=== PATIENT | female | born 1960 | race Caucasian/White ===

== ENCOUNTER 2017-01-23 14:07 | Emergency (ER) | payer MEDICAID ==
[2017-01-23 14:35] VITALS: BP 126/79
--- NOTE | 2017-01-23 14:50 | ER Document Report ---
ED Medical Screen (RME) - General Chief Complaint: Problem with Urinary Catheter Stated Complaint: CATHETER LEAKING,PAINFUL Time Seen by Provider: 01/23/17 14:49 Notes: Patient states she just arrived here from [place]. She says she has been a snf for approximately the last 8 months and has not been out of bed. She states she has had a catheter in her bladder for over 30 days. She states it now hurts and leaks. TRAVEL OUTSIDE OF THE [place] IN LAST 30 DAYS: No - Related Data Allergies/Adverse Reactions: clarithromycin [From Biaxin] Allergy (Severe, Verified 01/23/17 14:27) TONGUE/THROAT SWELLING furosemide [From Lasix] Allergy (Intermediate, Verified 01/23/17 14:27) UNSURE venlafaxine HCl [From Effexor] Allergy (Intermediate, Verified 01/23/17 14:27) MUSCLE WEAKNESS adhesive tape Allergy (Verified 01/23/17 14:27) RASH divalproex sodium [From Depakote] Allergy (Verified 01/23/17 14:27) UNSURE Past Medical History - Past Medical History Cardiac Medical History: Reports: Hx Hypertension Denies: Hx Coronary Artery Disease, Hx Heart Attack Pulmonary Medical History: Reports: Hx Asthma, Hx Bronchitis, Hx COPD, Hx Pneumonia Denies: Hx Tuberculosis Neurological Medical History: Denies: Hx Cerebrovascular Accident, Hx Seizures Endocrine Medical History: Reports: Hx Diabetes Mellitus Type 2 Renal/ Medical History: Denies: Hx Peritoneal Dialysis GI Medical History: Reports: Hx Gastroesophageal Reflux Disease, Hx Hiatal Hernia, Hx Ulcer - UMBILICAL. Denies: Hx Hepatitis Musculoskeltal Medical History: Reports Hx Arthritis Psychiatric Medical History: Reports: Hx Depression, Hx Schizophrenia Infectious Medical History: Denies: Hx Hepatitis Past Surgical History: Reports: Hx Abdominal Surgery, Hx Appendectomy, Hx Section, Hx Cholecystectomy, Hx Hysterectomy. Denies: Hx Mastectomy, Hx Open Heart Surgery, Hx Pacemaker - Immunizations Hx Diphtheria, Pertussis, Tetanus Vaccination: No Physical Exam - Vital signs Vitals: Temp Pulse Resp BP Pulse Ox 98.8 F 100 18 126/79 H 95 01/23/17 14:29 01/23/17 14:29 01/23/17 14:29 01/23/17 14:29 01/23/17 14:29 Course - Vital Signs Vital signs: Temp Pulse Resp BP Pulse Ox 98.8 F 100 18 126/79 H 95 01/23/17 14:29 01/23/17 14:29 01/23/17 14:29 01/23/17 14:29 01/23/17 14:29
[2017-01-23 16:21] LABS: ABSOLUTE BASOPHILS # (AUTO) 0.1 10^3/uL (0.0-0.2); ABSOLUTE LYMPHOCYTES (AUTO) 1.6 10^3/uL (0.5-4.7); ABSOLUTE MONOCYTES (AUTO) 0.6 10^3/uL (0.1-1.4); ABSOLUTE NEUT (AUTO) 8.7 10^3/uL (1.7-8.2); BASOPHILS % (AUTO) 0.7 % (0-2); HEMATOCRIT 38.1 % (36.0-47.0); HEMOGLOBIN 12.8 g/dL (12.0-15.5); HGB HCT DIFFERENCE 0.3; LYMPHOCYTES % (AUTO) 14.9 % (13-45); MEAN CORPUSCULAR HEMOGLOBIN 29.4 pg (27.0-33.4); MEAN CORPUSCULAR HGB CONC 33.7 g/dL (32.0-36.0); MEAN CORPUSCULAR VOLUME 87 fl (80-97); MONOCYTES % (AUTO) 5.2 % (3-13); RED BLOOD COUNT 4.36 10^6/uL (3.72-5.28); RED CELL DISTRIBUTION WIDTH 15.9 % (11.5-14.0); SEGMENTED NEUTROPHILS % (AUTO) 79.2 % (42-78)
[2017-01-23 16:40] LABS: ALANINE AMINOTRANSFERASE 28 U/L (9-52); ALBUMIN 4.6 g/dL (3.5-5.0); ALKALINE PHOSPHATASE 67 U/L (38-126); ANION GAP 15 (5-19); ASPARTATE AMINO TRANSFERASE 15 U/L (14-36); BILIRUBIN,DIRECT 0.4 mg/dL (0.0-0.4); BILIRUBIN,TOTAL 0.4 mg/dL (0.2-1.3); BLOOD UREA NITROGEN 9 mg/dL (7-20); CALCIUM 10.4 mg/dL (8.4-10.2); CARBON DIOXIDE 28 mmol/L (22-30); CHLORIDE 99 mmol/L (98-107); CREATININE RESULT 0.55 mg/dL (0.52-1.25); GLUCOSE 95 mg/dL (75-110); POTASSIUM 4.7 mmol/L (3.6-5.0); SODIUM 141.9 mmol/L (137-145); TOTAL PROTEIN 7.2 g/dL (6.3-8.2)
--- NOTE | 2017-01-23 17:24 | ER Document Report ---
ED General - General Chief Complaint: Problem with Urinary Catheter Stated Complaint: CATHETER LEAKING,PAINFUL Time Seen by Provider: 01/23/17 14:49 Notes: Patient complaining of pain in her catheter. Patient states that he has had an indwelling Tenorio catheter for a long time. Just in town from [place]. Began feeling discomfort and dysuria. Also has a headache. TRAVEL OUTSIDE OF THE [place] IN LAST 30 DAYS: No - Related Data Allergies/Adverse Reactions: clarithromycin [From Biaxin] Allergy (Severe, Verified 01/23/17 14:27) TONGUE/THROAT SWELLING furosemide [From Lasix] Allergy (Intermediate, Verified 01/23/17 14:27) UNSURE venlafaxine HCl [From Effexor] Allergy (Intermediate, Verified 01/23/17 14:27) MUSCLE WEAKNESS adhesive tape Allergy (Verified 01/23/17 14:27) RASH divalproex sodium [From Depakote] Allergy (Verified 01/23/17 14:27) UNSURE Home Medications: Current Home Medications Amlodipine Besylate 2.5 mg PO DAILY 01/23/17 [History] Clonidine HCl 0.1 mg PO Q4H 01/23/17 [History] Cyclobenzaprine HCl 5 mg PO QHS 01/23/17 [History] Doxycycline Hyclate 100 mg PO BID 01/23/17 [History] Fluticasone Propionate [Flovent Diskus] 50 mcg IH DAILY 01/23/17 [History] Fluticasone/Salmeterol [Advair 500-50 Diskus 28 Dose] 1 inh IH DAILY 01/23/17 [ History] Hydroxyzine Pamoate 25 mg PO DAILY 01/23/17 [History] Hydroxyzine Pamoate [Vistaril 25 mg Capsule] 25 mg pe PO DAILY 01/23/17 [History ] Levothyroxine Sodium 25 mcg PO DAILY 01/23/17 [History] Lorazepam 1 mg PO Q4H 01/23/17 [History] Melatonin/Theanine [Melatonin Forte 3 Mg Tablet] 1 each PO QHS 01/23/17 [History ] Mirtazapine [Remeron] 45 mg PO QHS 01/23/17 [History] Montelukast Sodium 10 mg PO QHS 01/23/17 [History] Prednisone 10 mg PO DAILY 01/23/17 [History] Quetiapine Fumarate 300 mg PO QHS 01/23/17 [History] Tiotropium [place] [Spiriva] 18 mcg IH DAILY 01/23/17 [History] Trazodone HCl 75 mg PO QHS 01/23/17 [History] Past Medical History - General Information source: Patient - Social History Smoking Status: Current Every Day Smoker Family History: Reviewed & Not Pertinent Patient has suicidal ideation: No Patient has homicidal ideation: No - Past Medical History Cardiac Medical History: Reports: Hx Hypertension Denies: Hx Coronary Artery Disease, Hx Heart Attack Pulmonary Medical History: Reports: Hx Asthma, Hx Bronchitis, Hx COPD, Hx Pneumonia Denies: Hx Tuberculosis Neurological Medical History: Denies: Hx Cerebrovascular Accident, Hx Seizures Endocrine Medical History: Reports: Hx Diabetes Mellitus Type 2 Renal/ Medical History: Denies: Hx Peritoneal Dialysis GI Medical History: Reports: Hx Gastroesophageal Reflux Disease, Hx Hiatal Hernia, Hx Ulcer - UMBILICAL. Denies: Hx Hepatitis Musculoskeltal Medical History: Reports Hx Arthritis Psychiatric Medical History: Reports: Hx Depression, Hx Schizophrenia Infectious Medical History: Denies: Hx Hepatitis Past Surgical History: Reports: Hx Abdominal Surgery, Hx Appendectomy, Hx Section, Hx Cholecystectomy, Hx Hysterectomy. Denies: Hx Mastectomy, Hx Open Heart Surgery, Hx Pacemaker - Immunizations Hx Diphtheria, Pertussis, Tetanus Vaccination: No Hx Pneumococcal Vaccination: 01/30/13 Review of Systems - Review of Systems Constitutional: No symptoms reported EENT: No symptoms reported Cardiovascular: No symptoms reported Respiratory: No symptoms reported Gastrointestinal: No symptoms reported Genitourinary: No symptoms reported, Burning, Dysuria Female Genitourinary: No symptoms reported Musculoskeletal: No symptoms reported Skin: No symptoms reported Hematologic/Lymphatic: No symptoms reported Neurological/Psychological: No symptoms reported Physical Exam - Vital signs Vitals: Temp Pulse Resp BP Pulse Ox 98.8 F 100 18 126/79 H 95 01/23/17 14:29 01/23/17 14:29 01/23/17 14:29 01/23/17 14:29 01/23/17 14:29 Interpretation: Normal - General General appearance: Appears well, Alert - HEENT Head: Normocephalic, Atraumatic Eyes: Normal Pupils: PERRL - Respiratory Respiratory status: No respiratory distress Chest status: Nontender Breath sounds: Normal Chest palpation: Normal - Cardiovascular Rhythm: Regular Heart sounds: Normal auscultation Murmur: No - Abdominal Inspection: Normal Distension: No distension Bowel sounds: Normal Tenderness: Nontender Organomegaly: No organomegaly - Back Back: Normal, Nontender - Extremities General upper extremity: Normal inspection, Nontender, Normal color, Normal ROM , Normal temperature General lower extremity: Normal inspection, Nontender, Normal color, Normal ROM , Normal temperature, Normal weight bearing. No: Adrianne's sign - Neurological Neuro grossly intact: Yes Cognition: Normal Orientation: AAOx4 Hossein Coma Scale Eye Opening: Spontaneous [place] Coma Scale Verbal: Oriented [place] Coma Scale Motor: Obeys Commands [place] Coma Scale Total: 15 Speech: Normal Motor strength normal: LUE, RUE, LLE, RLE Sensory: Normal - Psychological Associated symptoms: Normal affect, Normal mood - Skin Skin Temperature: Warm Skin Moisture: Dry Skin Color: Normal Course - Re-evaluation Re-evalutation: 01/23/17 18:08 She is well-appearing in no acute distress. Had a Tenorio catheter placed on arrival. States that alleviated her symptoms except for her headache. Requesting Tylenol and wants to be discharged. Will check urine and blood work and reassess 01/23/17 18:36 Urinalysis consistent with UTI. Will start on antibiotics. Patient is ready to go home. Will DC at this time. - Vital Signs Vital signs: Temp Pulse Resp BP Pulse Ox 98.8 F 100 18 126/79 H 95 01/23/17 14:29 01/23/17 14:29 01/23/17 14:29 01/23/17 14:29 01/23/17 14:29 - Laboratory Result Diagrams: 01/23/17 16:10 01/23/17 16:10 Laboratory results interpreted by me: 01/23/17 01/23/17 01/23/17 16:10 16:10 17:34 WBC 11.0 H RDW 15.9 H Plt Count 566 H Seg Neutrophils % 79.2 H Absolute Neutrophils 8.7 H Calcium 10.4 H Urine Blood SMALL H Ur Leukocyte Esterase LARGE H Discharge - Discharge Clinical Impression: Urinary tract infection Qualifiers: Urinary tract infection type: acute cystitis Hematuria presence: without hematuria Qualified Code(s): N30.00 - Acute cystitis without hematuria Condition: Good Disposition: HOME, SELF-CARE Instructions: Urinary Tract Infection ([facility]) Additional Instructions: Urinary Tract Infection Your evaluation indicates that you have a urinary tract infection. This is due to germs growing in the bladder. This is a common problem. This infection usually responds quickly to antibiotics. Your antibiotic should be taken exactly as prescribed. Drink plenty of fluids -- three to four quarts a day. Occasionally, a bladder anesthetic will be prescribed to help stop the feeling of urgency until the antibiotic has a chance to clear the infection. This may cause your urine to be dark orange. Certain urine infections require a culture. If the doctor obtained a culture, the results will be back in two days. You should call to see if a change in treatment is needed. A repeat urinalysis after you finish treatment is often recommended. The physician will let you know if further testing is required. Call the doctor if you develop fever, chills, flank pain, inability to urinate, or blood in the urine. Prescriptions: Nitrofurantoin/Nitrofuran Mac [Macrobid 100 mg Capsule] 1 tab PO BID #20 capsule Referrals: SILVINA KABA MD [Primary Care Provider] - Follow up as needed
[2017-01-23] MEDS ORDERED: ACETAMINOPHEN 325 MG TABLET PO ONE (18:06)
[2017-01-23 18:15] LABS: APPEARANCE,URINE CLEAR; BILIRUBIN,URINE NEGATIVE (NEGATIVE); GLUCOSE, URINE NEGATIVE (NEGATIVE); KETONES,URINE NEGATIVE (NEGATIVE); LEUKOCYTE ESTERASE,URINE LARGE (NEGATIVE); NITRITE,URINE NEGATIVE (NEGATIVE); PROTEIN,URINE NEGATIVE (NEGATIVE); URINE SPECIFIC GRAVITY 1.004; UROBILINOGEN,URINE NEGATIVE mg/dL (<2.0)
== END 2017-01-23 18:41 | disposition home or self-care (01) ==
LOC: ER 14:07
DX: N30.00 Acute cystitis without hematuria (principal); R51 Headache; F17.200 Nicotine dependence, unspecified, uncomplicated; I10 Essential (primary) hypertension; J44.9 Chronic obstructive pulmonary disease, unspecified; E11.9 Type 2 diabetes mellitus without complications; Z90.49 Acquired absence of other specified parts of digestive tract; Z90.710 Acquired absence of both cervix and uterus
CPT/HCPCS: 36415; 51702; 80053; 81001; 85025; 99283

== ENCOUNTER → 2017-02-07 | Outpatient (CLI) | payer MEDICAID ==
--- NOTE | 2017-02-07 17:43 | RADIOLOGY REPORT (SQ) ---
EXAM DESCRIPTION: CT CHEST WITHOUT COMPLETED DATE/TIME: 02/07/2017 5:17 pm REASON FOR STUDY: OTHER NONSPECIFIC ABNORMAL FINDING OF LUNG FIELD R91.8 OTHER NONSPECIFIC ABNORMAL FINDING OF LUNG FIELD COMPARISON: 02/09/2015 TECHNIQUE: CT scan performed of the chest without intravenous contrast. Images reviewed with lung, soft tissue and bone windows. Reconstructed coronal and sagittal MPR images reviewed. All images st ored on PACS. All CT scanners at this facility use dose modulation, iterative reconstruction, and/or weight based d osing when appropriate to reduce radiation dose to as low as reasonably achievable (ALARA). [facility]: Dose Right [facility]: CareDose [facility]: Dose Right [facility]: Teradose 4D [facility]: [employer] RADIATION DOSE: Up-to-date CT equipment and radiation dose reduction techniques were employed. CTDIv ol: 6.3 mGy. DLP: 244 mGy-cm. mGy. LIMITATIONS: No technical limitations. FINDINGS: LUNGS AND PLEURA: Considerable emphysematous changes are present bilaterally. There is li mited area of scarring in right upper lobe. No masses or infiltrates. No effusions. HILAR AND MEDIASTINAL STRUCTURES: No identified masses or abnormal nodes. Small hiatal hernia. HEART AND VASCULAR STRUCTURES: No aneurysm. No pericardial effusion. UPPER ABDOMEN: Right hydronephrosis. Mild left hydronephrosis. THYROID AND OTHER SOFT TISSUES: No masses. No adenopathy. BONES: Mild scoliosis. No osseous lesions. HARDWARE: None in the chest. OTHER: No other significant findings. IMPRESSION: Considerable pulmonary emphysema with no acute abnormality in the chest. Small hiatal h ernia. Hydronephrosis as described. TECHNICAL DOCUMENTATION: JOB ID: [id number] Quality ID # [id number]: Final reports with documentation of one or more dose reduction techniques (e.g., Au tomated exposure control, adjustment of the mA and/or kV according to patient size, use of iterative reconstruction technique) 2010 [employer]- All Rights Reserved
== END ==
LOC: RAD 16:42
PROVIDERS: ATTEND Internal Medicine Critical Care Medicine
DX: J43.9 Emphysema, unspecified (principal); R91.8 Other nonspecific abnormal finding of lung field
CPT/HCPCS: 71250

== ENCOUNTER 2017-02-19 12:56 | Inpatient (IN) | payer MEDICAID ==
[2017-02-19] MEDS ORDERED: NORMAL SALINE 1000 ML 1,000 ML IV ONE (13:20)
[2017-02-19 13:29] LABS: ABSOLUTE LYMPHOCYTES (AUTO) 0.5 10^3/uL (0.5-4.7); ABSOLUTE MONOCYTES (AUTO) 0.6 10^3/uL (0.1-1.4); ABSOLUTE NEUT (AUTO) 6.3 10^3/uL (1.7-8.2); BASOPHILS % (AUTO) 0.6 % (0-2); EOSINOPHILS % (AUTO) 0.5 % (0-6); HEMATOCRIT 36.9 % (36.0-47.0); HEMOGLOBIN 11.9 g/dL (12.0-15.5); HGB HCT DIFFERENCE -1.2; LYMPHOCYTES % (AUTO) 6.9 % (13-45); MEAN CORPUSCULAR HEMOGLOBIN 28.7 pg (27.0-33.4); MEAN CORPUSCULAR HGB CONC 32.4 g/dL (32.0-36.0); MEAN CORPUSCULAR VOLUME 89 fl (80-97); MONOCYTES % (AUTO) 7.7 % (3-13); RED BLOOD COUNT 4.16 10^6/uL (3.72-5.28); RED CELL DISTRIBUTION WIDTH 16.5 % (11.5-14.0); SEGMENTED NEUTROPHILS % (AUTO) 84.3 % (42-78); WHITE BLOOD COUNT 7.5 10^3/uL (4.0-10.5)
[2017-02-19 13:35] LABS: PROTHROMBIN TIME 12.5 SEC (11.4-15.4)
[2017-02-19 13:49] LABS: ALANINE AMINOTRANSFERASE 24 U/L (9-52); ALBUMIN 4.1 g/dL (3.5-5.0); ALKALINE PHOSPHATASE 69 U/L (38-126); ANION GAP 9 (5-19); ASPARTATE AMINO TRANSFERASE 18 U/L (14-36); BILIRUBIN,DIRECT 0.4 mg/dL (0.0-0.4); BILIRUBIN,TOTAL 0.4 mg/dL (0.2-1.3); BLOOD UREA NITROGEN 4 mg/dL (7-20); CALCIUM 9.4 mg/dL (8.4-10.2); CARBON DIOXIDE 37 mmol/L (22-30); CHLORIDE 99 mmol/L (98-107); CREATININE RESULT 0.52 mg/dL (0.52-1.25); GLUCOSE 110 mg/dL (75-110); POTASSIUM 3.9 mmol/L (3.6-5.0); SODIUM 144.9 mmol/L (137-145)
[2017-02-19 13:56] LABS: VENOUS BLOOD BASE EXCESS 7.6 mmol/L; VENOUS BLOOD HCO3 36.1 mmol/L (20-32); VENOUS BLOOD PH 7.32 (7.30-7.42)
[2017-02-19 13:59] LABS: VENOUS BLOOD PCO2 71.2 mmHg (35-63)
--- NOTE | 2017-02-19 14:27 | RADIOLOGY REPORT (SQ) ---
EXAM DESCRIPTION: CHEST SINGLE VIEW COMPLETED DATE/TIME: 02/19/2017 2:07 pm REASON FOR STUDY: sob on bipap COMPARISON: Chest films 04/14/2015, 04/17/2015 CT chest 02/07/2017 EXAM PARAMETERS: NUMBER OF VIEWS: One view. TECHNIQUE: Single frontal radiographic view of the chest acquired. RADIATION DOSE: NA LIMITATIONS: None. FINDINGS: LUNGS AND PLEURA: Lungs are hyperinflated and hyperlucent from obstructive disease. No acute infiltrates. No pleural effusion. No pneumothorax. MEDIASTINUM AND HILAR STRUCTURES: No masses. Contour normal. HEART AND VASCULAR STRUCTURES: Heart normal in size. Normal vasculature. BONES: No acute findings. HARDWARE: None in the chest. OTHER: No other significant finding. IMPRESSION: Obstructive lung disease. No acute infiltrates TECHNICAL DOCUMENTATION: JOB ID: [id number] [employer]- All Rights Reserved
--- NOTE | 2017-02-19 15:03 | ER Document Report ---
ED General - General Chief Complaint: Respiratory Distress Stated Complaint: RESPIRATORY DISTRESS Time Seen by Provider: 02/19/17 13:19 TRAVEL OUTSIDE OF THE [place] IN LAST 30 DAYS: No - HPI Patient complains to provider of: Respiratory distress Notes: Patient was significant history for COPD seen by Dr. Landin log skidder. Patient states recently seen by her doctor in diagnosed with pneumonia started on Levaquin. Patient became extremely short of breath today EMS was called and found patient with SPO2 of 85%. Patient was placed on CPAP and transported to the ER. Upon her arrival patient still to Transition over to BiPAP. Upon transitioning on BiPAP patient able to speak in approximate 5-6 word sentences. Patient otherwise states no other changes in medications except for the Levaquin. Denies any recent travel denies any chest pain abdominal pain fevers or chills. - Related Data Allergies/Adverse Reactions: clarithromycin [From Biaxin] Allergy (Severe, Verified 01/23/17 14:27) TONGUE/THROAT SWELLING furosemide [From Lasix] Allergy (Intermediate, Verified 01/23/17 14:27) UNSURE venlafaxine HCl [From Effexor] Allergy (Intermediate, Verified 01/23/17 14:27) MUSCLE WEAKNESS adhesive tape Allergy (Verified 01/23/17 14:27) RASH divalproex sodium [From Depakote] Allergy (Verified 01/23/17 14:27) UNSURE Home Medications: Current Home Medications Acetaminophen [Tylenol 325 mg Tablet] 650 mg PO Q4HP PRN 02/19/17 [History] Amlodipine Besylate [Norvasc 2.5 mg Tablet] 2.5 mg PO DAILY 02/19/17 [History] Calcium Carbonate/Vitamin D3 [Calcium 600-Vit D3 2,500 Sftgl] 1 each PO DAILY [History] Clonidine HCl [Catapres 0.1 mg Tablet] 0.1 mg PO Q4 02/19/17 [History] Fluticasone Propionate [Flovent Diskus] 50 mcg IH DAILY 02/19/17 [History] Fluticasone/Salmeterol [Advair 500-50 Diskus 28 Dose] 1 dose IH DAILY 02/19/17 [ History] Gabapentin [Neurontin 100 mg Capsule] 100 mg PO Q8 02/19/17 [History] Hydroxyzine Pamoate [Vistaril 25 mg Capsule] 25 mg PO DAILY 02/19/17 [History] Levothyroxine Sodium [Synthroid 0.025 mg Tablet] 25 mcg PO QAM 02/19/17 [History ] Lorazepam [Ativan] 1 mg PO Q8 02/19/17 [History] Mirtazapine 30 mg PO QHS 02/19/17 [History] Montelukast Sodium [Singulair 10 mg Tablet] 10 mg PO QHS 02/19/17 [History] Multivit-Min/Iron/Folic/Lutein [Centrum Silver Women Tablet] 1 each PO DAILY [History] Omeprazole 40 mg PO DAILY 02/19/17 [History] Prednisone [Deltasone 10 mg Tablet] 10 mg PO DAILY 02/19/17 [History] Quetiapine Fumarate [Seroquel] 300 mg PO QHS 02/19/17 [History] Roflumilast [Daliresp 500 mcg Tablet] 500 mcg PO DAILY 02/19/17 [History] Tamsulosin HCl [Flomax] 0.4 mg PO DAILY 02/19/17 [History] Tiotropium [place] [Spiriva] 18 mcg IH DAILY 02/19/17 [History] Trazodone HCl [Desyrel 50 mg Tablet] 75 mg PO QHS 02/19/17 [History] Past Medical History - Social History Smoking Status: Current Every Day Smoker Chew tobacco use (# tins/day): No Frequency of alcohol use: Occasional Drug Abuse: None Family History: Reviewed & Not Pertinent Patient has suicidal ideation: No Patient has homicidal ideation: No - Past Medical History Cardiac Medical History: Reports: Hx Hypertension Denies: Hx Coronary Artery Disease, Hx Heart Attack Pulmonary Medical History: Reports: Hx Asthma, Hx Bronchitis, Hx COPD, Hx Pneumonia Denies: Hx Tuberculosis Neurological Medical History: Denies: Hx Cerebrovascular Accident, Hx Seizures Endocrine Medical History: Reports: Hx Diabetes Mellitus Type 2 Renal/ Medical History: Denies: Hx Peritoneal Dialysis GI Medical History: Reports: Hx Gastroesophageal Reflux Disease, Hx Hiatal Hernia, Hx Ulcer - UMBILICAL. Denies: Hx Hepatitis Musculoskeltal Medical History: Reports Hx Arthritis Psychiatric Medical History: Reports: Hx Depression, Hx Schizophrenia Infectious Medical History: Denies: Hx Hepatitis Past Surgical History: Reports: Hx Abdominal Surgery, Hx Appendectomy, Hx Section, Hx Cholecystectomy, Hx Hysterectomy. Denies: Hx Mastectomy, Hx Open Heart Surgery, Hx Pacemaker - Immunizations Hx Diphtheria, Pertussis, Tetanus Vaccination: No Hx Pneumococcal Vaccination: 01/30/13 Review of Systems - Review of Systems Constitutional: No symptoms reported EENT: No symptoms reported Cardiovascular: No symptoms reported Respiratory: Cough, Short of breath, Wheezing Gastrointestinal: No symptoms reported Genitourinary: No symptoms reported Female Genitourinary: No symptoms reported Musculoskeletal: No symptoms reported Skin: No symptoms reported Hematologic/Lymphatic: No symptoms reported Neurological/Psychological: No symptoms reported -: Yes All other systems reviewed and negative Physical Exam - Vital signs Vitals: Temp Resp Pulse Ox 98.0 F 20 98 02/19/17 13:07 02/19/17 13:07 02/19/17 13:07 Interpretation: Tachypneic - General General appearance: Appears well, Alert - HEENT Head: Normocephalic, Atraumatic Eyes: Normal Pupils: PERRL - Respiratory Respiratory status: Tachypnea Chest status: Nontender Breath sounds: Rhonchi, Wheezing Chest palpation: Normal - Cardiovascular Rhythm: Regular Heart sounds: Normal auscultation Murmur: No - Abdominal Inspection: Normal Distension: No distension Bowel sounds: Normal Tenderness: Nontender Organomegaly: No organomegaly - Back Back: Normal, Nontender - Extremities General upper extremity: Normal inspection, Nontender, Normal color, Normal ROM , Normal temperature General lower extremity: Normal inspection, Nontender, Normal color, Normal ROM , Normal temperature, Normal weight bearing. No: Adrianne's sign - Neurological Neuro grossly intact: Yes Cognition: Normal Orientation: AAOx4 [place] Coma Scale Eye Opening: Spontaneous Hossein Coma Scale Verbal: Oriented [place]sein Coma Scale Motor: Obeys Commands [place] Coma Scale Total: 15 Speech: Normal Motor strength normal: LUE, RUE, LLE, RLE Sensory: Normal - Psychological Associated symptoms: Normal affect, Normal mood - Skin Skin Temperature: Warm Skin Moisture: Dry Skin Color: Normal Course - Re-evaluation Re-evalutation: 02/19/17 19:01 Workup shows elevation in patient's PCO2. No signs of any significant acidosis. Patient will be continued on BiPAP. Patient case was discussed with PCP agrees with admission at this time. Patient will be admitted for COPD exacerbation. - Vital Signs Vital signs: Temp Pulse Resp BP Pulse Ox 98.0 F 99 18 121/41 L 100 02/19/17 13:07 02/19/17 16:00 02/19/17 17:00 02/19/17 16:00 02/19/17 17:00 - Laboratory Result Diagrams: 02/19/17 13:04 02/19/17 13:04 Laboratory results interpreted by me: 02/19/17 02/19/17 02/19/17 13:04 13:04 13:40 Hgb 11.9 L RDW 16.5 H Seg Neutrophils % 84.3 H Lymphocytes % 6.9 L VBG pCO2 71.2 H* VBG HCO3 36.1 H Carbon Dioxide 37 H BUN 4 L Critical Care Note - Critical Care Note Total time excluding time spent on procedures (mins): 35 Comments: Multiple evaluations for patient requiring BiPAP due to respiratory distress. Discharge - Discharge Clinical Impression: COPD exacerbation, Respiratory distress Condition: Good Disposition: ADMITTED INPATIENT Admitting Provider: Xavier Unit Admitted: [facility]
[2017-02-19] MEDS ORDERED: NORMAL SALINE 1000 ML 1,000 ML IV PRN (15:18)
[2017-02-19] MEDS ORDERED: DEXTROSE 40% GEL 15 GM TUBE PO PRN ×2 (15:23)
[2017-02-19] MEDS ORDERED: GLUCAGON,HUMAN RECOMB 1 MG INJ IM PRN (15:23)
[2017-02-19] MEDS ORDERED: DEXTROSE 50%-WATER 25 GM/50 ML DISP.SYRIN IV PRN ×2 (15:23)
[2017-02-19] MEDS ORDERED: INSULIN LISPRO 100 UNIT/ML 3 ML VIAL SUBCUT PRN (15:23)
[2017-02-19] MEDS: IPRATROPIUM/ALBUTEROL 0.5-2.5 MG/3 ML AMPUL NEB SCH ×3 (15:56→23:49)
[2017-02-19] MEDS ORDERED: LEVOFLOXACIN 500 MG TABLET PO ONE (16:00)
[2017-02-19] MEDS ORDERED: ENOXAPARIN SODIUM INJ 40 MG/0.4 ML DISP.SYRIN SUBCUT ONE (16:30)
[2017-02-19 16:54] LABS: CREATINE KINASE MB 1.55 ng/mL (<4.55)
[2017-02-19 16:55] LABS: TROPONIN I < 0.012 ng/mL
--- NOTE | 2017-02-19 17:27 | PDOC H&P ---
History of Present Illness Admission Date/PCP: SILVINA KABA MD Patient complains of: Shortness of the breath History of Present Illness: BRYON BONILLA is a 56 year old female This is a 56-year-old female with significant history of the end-stage COPDHistory of the hypertension and type 2 diabetes mellitus with a significant history of the anxiety disorders and also schizophreniaWith recently moved from the other state the patient was living in the assisted livingCame to the emergency department with a complaint of shortness of the breath and increasing more cough and congestion'sIn the ER patient's initial workup is suggesting COPD with acute exacerbations and patient was initially put on the BiPAP because of the respiratory distress and elevated PCO2. Patient still have the productive sputum with a white discharge/pt see pulmonary last ek and did ct scan and told pnemonia and start levaquin and also s/o use prn o2 at night but not sure Patient also see a as outpatient Past Medical History Cardiac Medical History: Reports: Hypertension Denies: Coronary Artery Disease, Myocardial Infarction Pulmonary Medical History: Reports: Asthma, Bronchitis, Chronic Obstructive Pulmonary Disease (COPD), Pneumonia Denies: Tuberculosis Neurological Medical History: Denies: Seizures Endocrine Medical History: Reports: Diabetes Mellitus Type 2 GI Medical History: Reports: Gastroesophageal Reflux Disease, Hiatal Hernia Denies: Hepatitis Musculoskeltal Medical History: Reports: Arthritis Psychiatric Medical History: Reports: Depression, General Anxiety Disorder, Schizoaffective Disorder Hematology: Denies: Anemia, Sickle Cell Disease Past Surgical History Past Surgical History: Reports: Appendectomy, Section, Cholecystectomy , Hysterectomy Denies: Amputation, Mastectomy, Pacemaker Social History Smoking Status: Current Every Day Smoker Frequency of Alcohol Use: Occasional Hx Recreational Drug Use: No Hx Prescription Drug Abuse: No Family History Family History: Reviewed & Not Pertinent Parental Family History Reviewed: Yes Children Family History Reviewed: Yes Sibling(s) Family History Reviewed.: Yes Medication/Allergy Home Medications: Acetaminophen [Tylenol 325 mg Tablet] 650 mg PO Q4HP PRN 02/19/17 Amlodipine Besylate [Norvasc 2.5 mg Tablet] 2.5 mg PO DAILY 02/19/17 Calcium Carbonate/Vitamin D3 [Calcium 600-Vit D3 2,500 Sftgl] 1 each PO DAILY Clonidine HCl [Catapres 0.1 mg Tablet] 0.1 mg PO Q4 02/19/17 Fluticasone Propionate [Flovent Diskus] 50 mcg IH DAILY 02/19/17 Fluticasone/Salmeterol [Advair 500-50 Diskus 28 Dose] 1 dose IH DAILY 02/19/17 Gabapentin [Neurontin 100 mg Capsule] 100 mg PO Q8 02/19/17 Hydroxyzine Pamoate [Vistaril 25 mg Capsule] 25 mg PO DAILY 02/19/17 Levothyroxine Sodium [Synthroid 0.025 mg Tablet] 25 mcg PO QAM 02/19/17 Lorazepam [Ativan] 1 mg PO Q8 02/19/17 Mirtazapine 30 mg PO QHS 02/19/17 Montelukast Sodium [Singulair 10 mg Tablet] 10 mg PO QHS 02/19/17 Multivit-Min/Iron/Folic/Lutein [Centrum Silver Women Tablet] 1 each PO DAILY Omeprazole 40 mg PO DAILY 02/19/17 Prednisone [Deltasone 10 mg Tablet] 10 mg PO DAILY 02/19/17 Quetiapine Fumarate [Seroquel] 300 mg PO QHS 02/19/17 Roflumilast [Daliresp 500 mcg Tablet] 500 mcg PO DAILY 02/19/17 Tamsulosin HCl [Flomax] 0.4 mg PO DAILY 02/19/17 Tiotropium Ira [Spiriva] 18 mcg IH DAILY 02/19/17 Trazodone HCl [Desyrel 50 mg Tablet] 75 mg PO QHS 02/19/17 Allergies/Adverse Reactions: clarithromycin [From Biaxin] Allergy (Severe, Verified 01/23/17 14:27) TONGUE/THROAT SWELLING furosemide [From Lasix] Allergy (Intermediate, Verified 01/23/17 14:27) UNSURE venlafaxine HCl [From Effexor] Allergy (Intermediate, Verified 01/23/17 14:27) MUSCLE WEAKNESS adhesive tape Allergy (Verified 01/23/17 14:27) RASH divalproex sodium [From Depakote] Allergy (Verified 01/23/17 14:27) UNSURE Review of Systems Constitutional: PRESENT: weakness. ABSENT: chills, fever(s), headache(s), weight gain, weight loss Eyes: ABSENT: visual disturbances Ears: ABSENT: hearing changes Cardiovascular: PRESENT: dyspnea on exertion. ABSENT: chest pain, edema, orthropnea, palpitations Respiratory: PRESENT: cough, dyspnea, sputum. ABSENT: hemoptysis Gastrointestinal: ABSENT: abdominal pain, constipation, diarrhea, hematemesis, hematochezia, nausea, vomiting Genitourinary: ABSENT: dysuria, hematuria Musculoskeletal: ABSENT: joint swelling Integumentary: ABSENT: rash, wounds Neurological: ABSENT: abnormal gait, abnormal speech, confusion, dizziness, focal weakness, syncope Psychiatric: ABSENT: anxiety, depression, homidical ideation, suicidal ideation Endocrine: ABSENT: cold intolerance, heat intolerance, menstrual abnormalities, polydipsia, polyuria Hematologic/Lymphatic: ABSENT: easy bleeding, easy bruising, lymphadenopathy Physical Exam Vital Signs: Temp Pulse Resp BP Pulse Ox 98.0 F 20 98 02/19/17 13:07 02/19/17 13:07 02/19/17 13:07 Intake & Output 02/18/17 02/19/17 02/20/17 06:59 06:59 06:59 Weight 61.235 kg General appearance: PRESENT: mild distress Eye exam: PRESENT: PERRLA Mouth exam: PRESENT: dry mucosa Neck exam: ABSENT: carotid bruit, full ROM, JVD, lymphadenopathy, meningismus, tenderness, thyromegaly, tracheal deviation, tracheostomy, other Respiratory exam: PRESENT: decreased breath sounds, tachypnea, wheezes Cardiovascular exam: PRESENT: +S1, +S2 Pulses: ABSENT: normal carotid pulses, normal radial pulses, normal femoral pulses, normal dorsalis pedis pul, +1 pedal pulses bilateral, +2 pedal pulses bilateral, other Vascular exam: PRESENT: normal capillary refill GI/Abdominal exam: PRESENT: normal bowel sounds, soft. ABSENT: tenderness Extremities exam: ABSENT: pedal edema Neurological exam: PRESENT: alert, awake, oriented to person, oriented to place , oriented to time Psychiatric exam: PRESENT: anxious Skin exam: PRESENT: dry Results Laboratory Results: 02/19/17 13:04 02/19/17 13:04 02/19/17 02/19/17 02/19/17 13:04 13:04 13:04 WBC 7.5 RBC 4.16 Hgb 11.9 L Hct 36.9 MCV 89 MCH 28.7 MCHC 32.4 RDW 16.5 H Plt Count 302 Seg Neutrophils % 84.3 H Lymphocytes % 6.9 L Monocytes % 7.7 Eosinophils % 0.5 Basophils % 0.6 Absolute Neutrophils 6.3 Absolute Lymphocytes 0.5 Absolute Monocytes 0.6 Absolute Eosinophils 0.0 Absolute Basophils 0.0 VBG pH VBG pCO2 VBG HCO3 VBG Base Excess Sodium 144.9 Potassium 3.9 Chloride 99 Carbon Dioxide 37 H Anion Gap 9 BUN 4 L Creatinine 0.52 Est GFR ( Amer) > 60 Est GFR (Non-Af Amer) > 60 Glucose 110 Lactic Acid 0.9 Calcium 9.4 Total Bilirubin 0.4 AST 18 ALT 24 Alkaline Phosphatase 69 Total Protein 7.0 Albumin 4.1 02/19/17 13:40 WBC RBC Hgb Hct MCV MCH MCHC RDW Plt Count Seg Neutrophils % Lymphocytes % Monocytes % Eosinophils % Basophils % Absolute Neutrophils Absolute Lymphocytes Absolute Monocytes Absolute Eosinophils Absolute Basophils VBG pH 7.32 VBG pCO2 71.2 H* VBG HCO3 36.1 H VBG Base Excess 7.6 Sodium Potassium Chloride Carbon Dioxide Anion Gap BUN Creatinine Est GFR ( Amer) Est GFR (Non-Af Amer) Glucose Lactic Acid Calcium Total Bilirubin AST ALT Alkaline Phosphatase Total Protein Albumin 02/19/17 13:04 Troponin I < 0.012 Impressions: Chest X-Ray 02/19/17 13:20 IMPRESSION: Obstructive lung disease. No acute infiltrates Assessment & Plan - Diagnosis (1) COPD exacerbation Is this a current diagnosis for this admission?: Yes Plan: With end-stage COPD will start the patient on IV Solu-Medrol and respiratory treatment (2) Respiratory distress Is this a current diagnosis for this admission?: Yes Plan: With the patient's PCO2 is 71 most likely chronic respiratory failure with acute exacerbations will put the patient on the BiPAP and consult the pulmonary (3) Diabetes Qualifiers: Diabetes mellitus type: type 2 Diabetes mellitus complication status: with unspecified complications Is this a current diagnosis for this admission?: Yes Plan: Put the patient on a sliding scale (4) Hypertension Qualifiers: Hypertension type: essential hypertension Qualified Code(s): I10 - Essential (primary) hypertension Is this a current diagnosis for this admission?: Yes Plan: Continues to current medications (5) Generalized anxiety disorder Is this a current diagnosis for this admission?: Yes Plan: She is currently follow with the psych and continues all psych medications - Time Time Spent: 30 to 50 Minutes Medications reviewed and adjusted accordingly: Yes Anticipated discharge: Home Within: Other - Inpatient Certification Medical Necessity: Need Close Monitoring Due to Risk of Patient Decompensation, Need For IV Fluids, Need for IV Antibiotics 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
--- NOTE | 2017-02-19 18:44 | RADIOLOGY REPORT (SQ) ---
EXAM DESCRIPTION: CT CHEST WITHOUT COMPLETED DATE/TIME: 02/19/2017 6:25 pm REASON FOR STUDY: copd/reapirtory failure COMPARISON: None. TECHNIQUE: CT scan performed of the chest without intravenous contrast. Images reviewed with lung, soft tissue and bone windows. Reconstructed coronal and sagittal MPR images reviewed. All images st ored on PACS. All CT scanners at this facility use dose modulation, iterative reconstruction, and/or weight based d osing when appropriate to reduce radiation dose to as low as reasonably achievable (ALARA). [facility]: Dose Right [facility]: CareDose [facility]: Dose Right [facility]: Teradose 4D [facility]: Smart [employer] RADIATION DOSE: CT Rad equipment meets quality standard of care and radiation dose reduction techniq ues were employed. CTDIvol: 5.0 mGy. DLP: 207 mGy-cm. mGy. LIMITATIONS: No technical limitations. FINDINGS: LUNGS AND PLEURA: No masses, infiltrates, pneumothorax. No pleural effusions, calcificati ons. The previously described extensive bilateral emphysematous changes are again identified. The p reviously described limited area of scarring in the right upper lobe appears stable. HILAR AND MEDIASTINAL STRUCTURES: No identified masses or abnormal nodes. No obvious aneurysm. HEART AND VASCULAR STRUCTURES: No aneurysm. No pericardial effusion. Coronary artery calcifications are identified. UPPER ABDOMEN: Bilateral hydronephrosis is again identified. THYROID AND OTHER SOFT TISSUES: No masses. No adenopathy. BONES: No significant finding. HARDWARE: None in the chest. OTHER: No other significant findings. IMPRESSION: No significant interval change. No acute findings. Other findings as noted above TECHNICAL DOCUMENTATION: JOB ID: [id number] Quality ID # [id number]: Final reports with documentation of one or more dose reduction techniques (e.g., Au tomated exposure control, adjustment of the mA and/or kV according to patient size, use of iterative reconstruction technique) 2010 [employer]- All Rights Reserved
--- NOTE | 2017-02-19 19:37 | RADIOLOGY REPORT (SQ) ---
EXAM DESCRIPTION: NM LUNG PERFUSION SCAN COMPLETED DATE/TIME: 02/19/2017 7:25 pm REASON FOR STUDY: hypoxia/copd/ COMPARISON: Chest CT scan dated 02/19/2017 RADIONUCLIDE AND DOSE: 5.13 millicuries TC-99m MAA The route of agent administration: Intravenous TECHNIQUE: Eight views of the lungs acquired following injection of MAA. LIMITATIONS: None. FINDINGS: PERFUSION: There is inhomogeneity of the distribution of tracer activity.. OTHER: No other significant finding. IMPRESSION: There is inhomogeneity of the distribution of tracer activity. When correlated with the chest CT scan this most likely is related to chronic lung disease however this study is indeterminat e for pulmonary embolic disease. TECHNICAL DOCUMENTATION: JOB ID: [id number] [employer]- All Rights Reserved
[2017-02-19] MEDS: ACETAMINOPHEN 325 MG TABLET PO PRN (19:57)
[2017-02-19] MEDS: BUDESONIDE NEB 0.5 MG/2 ML AMPUL NEB SCH (20:49)
[2017-02-19] MEDS ORDERED: ACETAMINOPHEN 325 MG TABLET PO PRN (20:55)
--- NOTE | 2017-02-19 21:16 | EKG REPORT ---
SEVERITY:- BORDERLINE ECG - SINUS TACHYCARDIA BORDERLINE INFERIOR Q WAVES : Confirmed by: Sarah Beth Kate MD 19-Feb-2017 21:15:32
[2017-02-19] MEDS ORDERED: BUDESONIDE NEB 0.5 MG/2 ML AMPUL NEB SCH (22:00)
[2017-02-19] MEDS ORDERED: METHYLPREDNISOLONE INJ 40 MG/1 ML SDV IV SCH (22:00)
[2017-02-19] MEDS: CEFEPIME 1 GM/D5W RTU 1 GM/50 ML RTUPB IV SCH (22:08)
[2017-02-19] MEDS: GABAPENTIN 100 MG CAPSULE PO SCH (22:09)
[2017-02-19] MEDS: MONTELUKAST SODIUM 10 MG TABLET PO SCH (22:09)
[2017-02-19] MEDS: FAMOTIDINE 20 MG TABLET PO SCH (22:09)
[2017-02-19] MEDS: MIRTAZAPINE 15 MG TABLET PO SCH (22:10)
[2017-02-19] MEDS: QUETIAPINE FUMARATE 100 MG TABLET PO SCH (22:10)
[2017-02-19] MEDS: METHYLPREDNISOLONE INJ 125 MG/2 ML SDV IV SCH (22:11)
[2017-02-19] MEDS: FLUTICASONE/SALMETEROL DISKUS 500-50 MCG/DOSE IH SCH (22:11)
[2017-02-19] MEDS: TRAZODONE HCL 50 MG TABLET PO SCH (22:20)
[2017-02-19] MEDS: CLONIDINE HCL 0.1 MG TABLET PO SCH (22:20)
[2017-02-19 22:27] LABS: CREATINE KINASE MB 1.76 ng/mL (<4.55)
[2017-02-19 22:31] LABS: TROPONIN I < 0.012 ng/mL
[2017-02-20] MEDS: LORAZEPAM 1 MG TABLET PO SCH ×4 (01:09→21:07)
[2017-02-20] MEDS: CLONIDINE HCL 0.1 MG TABLET PO SCH ×6 (01:09→21:08)
[2017-02-20 03:51] LABS: ABSOLUTE LYMPHOCYTES (AUTO) 0.2 10^3/uL (0.5-4.7); ABSOLUTE NEUT (AUTO) 2.9 10^3/uL (1.7-8.2); BASOPHILS % (AUTO) 0.1 % (0-2); HEMATOCRIT 32.1 % (36.0-47.0); HEMOGLOBIN 10.5 g/dL (12.0-15.5); HGB HCT DIFFERENCE -0.6; LYMPHOCYTES % (AUTO) 6.6 % (13-45); MEAN CORPUSCULAR HEMOGLOBIN 29.2 pg (27.0-33.4); MEAN CORPUSCULAR HGB CONC 32.8 g/dL (32.0-36.0); MEAN CORPUSCULAR VOLUME 89 fl (80-97); MONOCYTES % (AUTO) 1.5 % (3-13); RED BLOOD COUNT 3.61 10^6/uL (3.72-5.28); RED CELL DISTRIBUTION WIDTH 16.8 % (11.5-14.0); SEGMENTED NEUTROPHILS % (AUTO) 91.8 % (42-78); WHITE BLOOD COUNT 3.2 10^3/uL (4.0-10.5)
[2017-02-20 04:11] LABS: ANION GAP 6 (5-19); BLOOD UREA NITROGEN 6 mg/dL (7-20); CALCIUM 8.9 mg/dL (8.4-10.2); CARBON DIOXIDE 34 mmol/L (22-30); CHLORIDE 105 mmol/L (98-107); CREATININE RESULT 0.43 mg/dL (0.52-1.25); GLUCOSE 126 mg/dL (75-110); MAGNESIUM 2.1 mg/dL (1.6-2.3); POTASSIUM 4.3 mmol/L (3.6-5.0); SODIUM 144.6 mmol/L (137-145)
[2017-02-20 04:23] LABS: CREATINE KINASE MB 1.42 ng/mL (<4.55)
[2017-02-20 04:29] LABS: TROPONIN I < 0.012 ng/mL
[2017-02-20] MEDS: IPRATROPIUM/ALBUTEROL 0.5-2.5 MG/3 ML AMPUL NEB SCH ×5 (04:36→20:14)
[2017-02-20] MEDS: LANSOPRAZOLE 30 MG TAB.RAP.DR PO SCH (05:38)
[2017-02-20] MEDS: METHYLPREDNISOLONE INJ 125 MG/2 ML SDV IV SCH ×3 (05:38→21:07)
[2017-02-20] MEDS: LEVOTHYROXINE SODIUM 0.025 MG TABLET PO SCH (05:38)
[2017-02-20] MEDS: GABAPENTIN 100 MG CAPSULE PO SCH ×3 (05:38→21:07)
[2017-02-20] MEDS ORDERED: INFLUENZA ADLT QUAD (36MOS+) 2017-18 VAC 0.5 ML SYR IM PRN (06:01)
[2017-02-20 06:45] LABS: ARTERIAL BLOOD O2 SATURATION 99.1 % (94-98)
[2017-02-20] MEDS: BUDESONIDE NEB 0.5 MG/2 ML AMPUL NEB SCH ×2 (08:35→20:15)
[2017-02-20] MEDS: CEFEPIME 1 GM/D5W RTU 1 GM/50 ML RTUPB IV SCH ×2 (09:55→21:06)
[2017-02-20] MEDS: PREDNISONE 10 MG TABLET PO SCH (09:56)
[2017-02-20] MEDS: CALCIUM CARBONATE 250 MG/VITAMIN D3 125 UNIT TABLET PO SCH (09:56)
[2017-02-20] MEDS: TAMSULOSIN HCL 0.4 MG CAP.SR.24H PO SCH (09:57)
[2017-02-20] MEDS: MULTIVITAMIN TABLET PO SCH (09:57)
[2017-02-20] MEDS: LEVOFLOXACIN 500 MG TABLET PO SCH (09:58)
[2017-02-20] MEDS: AMLODIPINE BESYLATE 2.5 MG TABLET PO SCH (09:58)
[2017-02-20] MEDS: HYDROXYZINE PAMOATE 25 MG CAPSULE PO SCH (09:58)
[2017-02-20] MEDS: ROFLUMILAST 500 MCG TABLET PO SCH (09:59)
[2017-02-20] MEDS: FAMOTIDINE 20 MG TABLET PO SCH ×2 (09:59→21:07)
[2017-02-20] MEDS: FLUTICASONE/SALMETEROL DISKUS 500-50 MCG/DOSE IH SCH (10:00)
[2017-02-20] MEDS ORDERED: [UNRECOGNIZED DRUG - OTHER] PO SCH (10:00)
[2017-02-20] MEDS ORDERED: FLUTICASONE PROPIONATE 50 MCG IH SCH (10:00)
[2017-02-20] MEDS ORDERED: VITAMIN D3 PO SCH (10:00)
[2017-02-20] MEDS ORDERED: TIOTROPIUM BROMIDE DPI 5 CAP/KIT (18 MCG/CAP) IH SCH (10:00)
[2017-02-20] MEDS ORDERED: CALCIUM CARBONATE PO SCH (10:00)
[2017-02-20] MEDS ORDERED: (PENDING PHARMACY ID) (Multivit-Min/Iron/Folic/Lutein [Centrum Silver Women Tablet] 1 EACH PO SCH (10:00)
[2017-02-20] MEDS: ENOXAPARIN SODIUM INJ 40 MG/0.4 ML DISP.SYRIN SUBCUT SCH (10:01)
--- NOTE | 2017-02-20 10:25 | PDOC PROGRESS REPORT ---
Subjective Progress Note for:: 02/20/17 Subjective:: Patient's currently doing fair Since denied any chest pain denied any shortness of the breath Patient's CT of the chest was negative for any acute infiltrate but have a significant emphysema Patient's VQ scan was indeterminant due to the significant emphysema Patient's otherwise no fever overnight Physical Exam Vital Signs: Temp Pulse Resp BP Pulse Ox 99.2 F 87 20 103/50 L 100 02/20/17 07:56 02/20/17 08:35 02/20/17 08:35 02/20/17 07:56 02/20/17 08:35 Intake & Output 02/19/17 02/20/17 02/21/17 06:59 06:59 06:59 Intake Total 1395 Balance 1395 Weight 63.7 kg General appearance: PRESENT: no acute distress, well-developed, well-nourished Head exam: PRESENT: atraumatic, normocephalic Eye exam: PRESENT: conjunctiva pink, EOMI, PERRLA. ABSENT: scleral icterus Ear exam: PRESENT: normal external ear exam Mouth exam: PRESENT: moist, tongue midline Neck exam: PRESENT: full ROM. ABSENT: carotid bruit, JVD, lymphadenopathy, thyromegaly Respiratory exam: PRESENT: clear to auscultation wilfredo Cardiovascular exam: PRESENT: RRR. ABSENT: diastolic murmur, rubs, systolic murmur Pulses: PRESENT: normal dorsalis pedis pul, +2 pedal pulses bilateral Vascular exam: PRESENT: normal capillary refill GI/Abdominal exam: PRESENT: normal bowel sounds, soft. ABSENT: distended, guarding, mass, organolmegaly, rebound, tenderness Rectal exam: PRESENT: deferred Extremities exam: ABSENT: pedal edema Neurological exam: PRESENT: alert, awake, oriented to person, oriented to place , oriented to time, oriented to situation, CN II-XII grossly intact. ABSENT: motor sensory deficit Psychiatric exam: PRESENT: appropriate affect, normal mood. ABSENT: homicidal ideation, suicidal ideation Skin exam: PRESENT: dry, intact, warm. ABSENT: cyanosis, rash Results Laboratory Results: 02/20/17 03:37 02/20/17 03:37 02/20/17 02/20/17 02/20/17 03:37 03:37 06:20 WBC 3.2 L RBC 3.61 L Hgb 10.5 L Hct 32.1 L MCV 89 MCH 29.2 MCHC 32.8 RDW 16.8 H Plt Count 238 Seg Neutrophils % 91.8 H Lymphocytes % 6.6 L Monocytes % 1.5 L Eosinophils % 0.0 Basophils % 0.1 Absolute Neutrophils 2.9 Absolute Lymphocytes 0.2 L Absolute Monocytes 0.0 L Absolute Eosinophils 0.0 Absolute Basophils 0.0 Carbonic Acid 1.94 H HCO3/H2CO3 Ratio 17:1 ABG pH 7.33 L ABG pCO2 64.6 H ABG pO2 181.8 H ABG HCO3 33.5 H ABG O2 Saturation 99.1 H ABG Base Excess 6.0 FiO2 5L Sodium 144.6 Potassium 4.3 Chloride 105 Carbon Dioxide 34 H Anion Gap 6 BUN 6 L Creatinine 0.43 L Est GFR ( Amer) > 60 Est GFR (Non-Af Amer) > 60 Glucose 126 H Calcium 8.9 Magnesium 2.1 02/19/17 02/19/17 02/19/17 16:15 16:15 21:35 Creatine Kinase 104 102 CK-MB (CK-2) 1.55 Troponin I < 0.012 02/19/17 02/20/17 02/20/17 21:35 03:37 03:37 Creatine Kinase 86 CK-MB (CK-2) 1.76 1.42 Troponin I < 0.012 < 0.012 Impressions: Chest CT 02/19/17 00:00 IMPRESSION: No significant interval change. No acute findings. Other findings as noted above Lung Scan-VQ NM 02/19/17 00:00 IMPRESSION: There is inhomogeneity of the distribution of tracer activity. When correlated with the chest CT scan this most likely is related to chronic lung disease however this study is indeterminate for pulmonary embolic disease. Chest X-Ray 02/19/17 13:20 IMPRESSION: Obstructive lung disease. No acute infiltrates Assessment & Plan - Diagnosis (1) COPD exacerbation Is this a current diagnosis for this admission?: Yes Plan: Cutdown the steroids continues to current inhalers and nebulizer treatments (2) Respiratory distress Is this a current diagnosis for this admission?: Yes Plan: Discussed with Dr. Goddard about the abnormal VQ scan's and the CT report and he will reevaluate the patient (3) Diabetes Qualifiers: Diabetes mellitus type: type 2 Diabetes mellitus complication status: with unspecified complications Is this a current diagnosis for this admission?: Yes Plan: Put the patient on a sliding scale (4) Hypertension Qualifiers: Hypertension type: essential hypertension Qualified Code(s): I10 - Essential (primary) hypertension Is this a current diagnosis for this admission?: Yes Plan: Continues to current medications (5) Generalized anxiety disorder Is this a current diagnosis for this admission?: Yes Plan: She is currently follow with the psych and continues all psych medications - Time Time Spent with patient: 15-24 minutes Medications reviewed and adjusted accordingly: Yes Anticipated discharge: Home Within: Other - Inpatient Certification Medical Necessity: Need Close Monitoring Due to Risk of Patient Decompensation Post Hospital Care: 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
--- NOTE | 2017-02-20 13:48 | PDOC CONSULTATION ---
Consultation Consult Date: 02/20/17 Attending physician:: SILVINA KABA Consult reason:: Acute on chronic respiratory failure History of Present Illness Admission Date/PCP: 02/19/17 15:39 SILVINA KABA MD History of Present Illness: BRYON BONILLA is a 56 year old female This is a 56-year-old female With a history of chronic respiratory failure O2 dependent hypercapnic secondary to COPD patient is normally maintained on a ventilator (i.e. BiPAP) as well as supplemental oxygen. She presents with increasing complaints of progressive shortness of breath difficulty breathing and swallowing she does admit to choking. Has approximately [id number] history and still smokes occasionally.t Past Medical History Cardiac Medical History: Reports: Hypertension Denies: Coronary Artery Disease, Myocardial Infarction Pulmonary Medical History: Reports: Asthma, Bronchitis, Chronic Obstructive Pulmonary Disease (COPD), Pneumonia Denies: Tuberculosis Neurological Medical History: Denies: Seizures Endocrine Medical History: Reports: Diabetes Mellitus Type 2 GI Medical History: Reports: Gastroesophageal Reflux Disease, Hiatal Hernia Denies: Hepatitis Musculoskeltal Medical History: Reports: Arthritis Psychiatric Medical History: Reports: Depression, General Anxiety Disorder, Schizoaffective Disorder Hematology: Denies: Anemia, Sickle Cell Disease Past Surgical History Past Surgical History: Reports: Appendectomy, Section, Cholecystectomy , Hysterectomy Denies: Amputation, Mastectomy, Pacemaker Social History Information Source: Patient, [facility] Records Lives with: Snf Smoking Status: Current Every Day Smoker Cigarettes Packs Per Day: 2 Number of Years Smokin Last Time Smoked: 2016 Passive smoke exposure as: Both Frequency of Alcohol Use: None Hx Recreational Drug Use: No Drugs: None Hx Prescription Drug Abuse: No Do you have pets?: No Have you had any respiratory illnesses as a child?: No Have you been exposed to any sick contacts recently?: No Have you had any recent respiratory illnesses?: No Family History Family History: CAD, COPD, Hypertension, Malignancy Parental Family History Reviewed: No Children Family History Reviewed: No Sibling(s) Family History Reviewed.: No Medication/Allergy Home Medications: Acetaminophen [Tylenol 325 mg Tablet] 650 mg PO Q4HP PRN 02/19/17 Amlodipine Besylate [Norvasc 2.5 mg Tablet] 2.5 mg PO DAILY 02/19/17 Calcium Carbonate/Vitamin D3 [Calcium 600-Vit D3 2,500 Sftgl] 1 each PO DAILY Clonidine HCl [Catapres 0.1 mg Tablet] 0.1 mg PO Q4 02/19/17 Fluticasone Propionate [Flovent Diskus] 50 mcg IH DAILY 02/19/17 Fluticasone/Salmeterol [Advair 500-50 Diskus 28 Dose] 1 dose IH DAILY 02/19/17 Gabapentin [Neurontin 100 mg Capsule] 100 mg PO Q8 02/19/17 Hydroxyzine Pamoate [Vistaril 25 mg Capsule] 25 mg PO DAILY 02/19/17 Levothyroxine Sodium [Synthroid 0.025 mg Tablet] 25 mcg PO QAM 02/19/17 Lorazepam [Ativan] 1 mg PO Q8 02/19/17 Mirtazapine 30 mg PO QHS 02/19/17 Montelukast Sodium [Singulair 10 mg Tablet] 10 mg PO QHS 02/19/17 Multivit-Min/Iron/Folic/Lutein [Centrum Silver Women Tablet] 1 each PO DAILY Omeprazole 40 mg PO DAILY 02/19/17 Prednisone [Deltasone 10 mg Tablet] 10 mg PO DAILY 02/19/17 Quetiapine Fumarate [Seroquel] 300 mg PO QHS 02/19/17 Roflumilast [Daliresp 500 mcg Tablet] 500 mcg PO DAILY 02/19/17 Tamsulosin HCl [Flomax] 0.4 mg PO DAILY 02/19/17 Tiotropium [place] [Spiriva] 18 mcg IH DAILY 02/19/17 Trazodone HCl [Desyrel 50 mg Tablet] 75 mg PO QHS 02/19/17 Allergies/Adverse Reactions: clarithromycin [From Biaxin] Allergy (Severe, Verified 01/23/17 14:27) TONGUE/THROAT SWELLING furosemide [From Lasix] Allergy (Intermediate, Verified 01/23/17 14:27) UNSURE venlafaxine HCl [From Effexor] Allergy (Intermediate, Verified 01/23/17 14:27) MUSCLE WEAKNESS adhesive tape Allergy (Verified 01/23/17 14:27) RASH divalproex sodium [From Depakote] Allergy (Verified 01/23/17 14:27) UNSURE Review of Systems Constitutional: PRESENT: chills, night sweats, weight loss. ABSENT: anorexia, fatigue, fever(s) Eyes: ABSENT: visual disturbances Ears: ABSENT: hearing changes Nose, Mouth, and Throat: ABSENT: mouth pain, sore throat Cardiovascular: PRESENT: dyspnea on exertion, orthropnea, palpitations Respiratory: PRESENT: cough, dyspnea Gastrointestinal: PRESENT: constipation, dysphagia, heartburn, nausea. ABSENT: abdominal pain, bloating, coffee ground emesis, diarrhea, hematemesis, hematochezia, melena, vomiting Genitourinary: ABSENT: difficulty urinating Musculoskeletal: PRESENT: muscle weakness. ABSENT: back pain, deformity, joint swelling Integumentary: ABSENT: diaphoresis, erythema, lesions, pruritus Neurological: PRESENT: dizziness, syncope. ABSENT: abnormal gait, abnormal movements, abnormal speech, confusion, convulsions, focal weakness, frequent falls, lack of coordination, memory loss Psychiatric: ABSENT: hallucinations, homidical ideation, suicidal ideation Endocrine: ABSENT: cold intolerance, heat intolerance Hematologic/Lymphatic: PRESENT: easy bruising Physical Exam Vital Signs: Temp Pulse Resp BP Pulse Ox 99.2 F 84 16 103/50 L 100 02/20/17 07:56 02/20/17 07:56 02/20/17 07:56 02/20/17 07:56 02/20/17 07:56 Intake & Output 02/19/17 02/20/17 02/21/17 06:59 06:59 06:59 Intake Total 1395 Balance 1395 Weight 63.7 kg General appearance: PRESENT: disheveled, mild distress, thin, well-developed Head exam: PRESENT: atraumatic, normocephalic Eye exam: PRESENT: conjunctiva pale, EOMI Mouth exam: PRESENT: dry mucosa, neck supple, tongue midline Teeth exam: PRESENT: poor dentation Neck exam: ABSENT: carotid bruit, JVD, lymphadenopathy, thyromegaly Respiratory exam: PRESENT: decreased breath sounds, prolonged expiratory phas, retraction, rhonchi, symmetrical, tachypnea. ABSENT: accessory muscle use, chest wall tenderness, clear to auscultation wilfredo, crackles, rales, stridor, wheezes Cardiovascular exam: PRESENT: RRR, +S1, +S2. ABSENT: irregular rhythm Pulses: PRESENT: normal radial pulses GI/Abdominal exam: PRESENT: normal bowel sounds, soft. ABSENT: distended, guarding, mass, organolmegaly, rebound, tenderness Extremities exam: ABSENT: calf tenderness, clubbing, joint swelling, pedal edema , tenderness Musculoskeletal exam: ABSENT: deformity, dislocation, tenderness Neurological exam: PRESENT: alert, awake Psychiatric exam: PRESENT: normal mood Skin exam: PRESENT: dry, pallor, warm Results Laboratory Results: 02/20/17 03:37 02/20/17 03:37 02/20/17 02/20/17 02/20/17 03:37 03:37 06:20 WBC 3.2 L RBC 3.61 L Hgb 10.5 L Hct 32.1 L MCV 89 MCH 29.2 MCHC 32.8 RDW 16.8 H Plt Count 238 Seg Neutrophils % 91.8 H Lymphocytes % 6.6 L Monocytes % 1.5 L Eosinophils % 0.0 Basophils % 0.1 Absolute Neutrophils 2.9 Absolute Lymphocytes 0.2 L Absolute Monocytes 0.0 L Absolute Eosinophils 0.0 Absolute Basophils 0.0 Carbonic Acid 1.94 H HCO3/H2CO3 Ratio 17:1 ABG pH 7.33 L ABG pCO2 64.6 H ABG pO2 181.8 H ABG HCO3 33.5 H ABG O2 Saturation 99.1 H ABG Base Excess 6.0 FiO2 5L Sodium 144.6 Potassium 4.3 Chloride 105 Carbon Dioxide 34 H Anion Gap 6 BUN 6 L Creatinine 0.43 L Est GFR ( Amer) > 60 Est GFR (Non-Af Amer) > 60 Glucose 126 H Calcium 8.9 Magnesium 2.1 02/19/17 02/19/17 02/19/17 16:15 16:15 21:35 Creatine Kinase 104 102 CK-MB (CK-2) 1.55 Troponin I < 0.012 02/19/17 02/20/17 02/20/17 21:35 03:37 03:37 Creatine Kinase 86 CK-MB (CK-2) 1.76 1.42 Troponin I < 0.012 < 0.012 Impressions: Chest CT 02/19/17 00:00 IMPRESSION: No significant interval change. No acute findings. Other findings as noted above Lung Scan-VQ NM 02/19/17 00:00 IMPRESSION: There is inhomogeneity of the distribution of tracer activity. When correlated with the chest CT scan this most likely is related to chronic lung disease however this study is indeterminate for pulmonary embolic disease. Chest X-Ray 02/19/17 13:20 IMPRESSION: Obstructive lung disease. No acute infiltrates Assessment & Plan - Diagnosis (1) COPD exacerbation Is this a current diagnosis for this admission?: Yes Plan: Currently down to a few cigarettes a day discontinue Spiriva and Advair as this is redundant with other medications continue Daliresp (2) Generalized anxiety disorder Is this a current diagnosis for this admission?: Yes (3) Respiratory distress Is this a current diagnosis for this admission?: Yes Plan: Advanced bullous disease can limit
[2017-02-20] MEDS: QUETIAPINE FUMARATE 100 MG TABLET PO SCH (21:06)
[2017-02-20] MEDS: MONTELUKAST SODIUM 10 MG TABLET PO SCH (21:07)
[2017-02-20] MEDS: MIRTAZAPINE 15 MG TABLET PO SCH (21:07)
[2017-02-20] MEDS: TRAZODONE HCL 50 MG TABLET PO SCH (21:08)
[2017-02-21] MEDS: IPRATROPIUM/ALBUTEROL 0.5-2.5 MG/3 ML AMPUL NEB SCH ×7 (00:29→23:46)
[2017-02-21] MEDS: CLONIDINE HCL 0.1 MG TABLET PO SCH ×6 (01:28→22:05)
[2017-02-21 05:44] LABS: ABSOLUTE LYMPHOCYTES (AUTO) 0.4 10^3/uL (0.5-4.7); ABSOLUTE MONOCYTES (AUTO) 0.3 10^3/uL (0.1-1.4); ABSOLUTE NEUT (AUTO) 6.8 10^3/uL (1.7-8.2); BASOPHILS % (AUTO) 0.2 % (0-2); HEMATOCRIT 32.4 % (36.0-47.0); HEMOGLOBIN 10.7 g/dL (12.0-15.5); HGB HCT DIFFERENCE -0.3; LYMPHOCYTES % (AUTO) 5.1 % (13-45); MEAN CORPUSCULAR HEMOGLOBIN 29.4 pg (27.0-33.4); MEAN CORPUSCULAR HGB CONC 33.1 g/dL (32.0-36.0); MEAN CORPUSCULAR VOLUME 89 fl (80-97); RED BLOOD COUNT 3.64 10^6/uL (3.72-5.28); RED CELL DISTRIBUTION WIDTH 16.7 % (11.5-14.0); SEGMENTED NEUTROPHILS % (AUTO) 90.7 % (42-78); WHITE BLOOD COUNT 7.4 10^3/uL (4.0-10.5)
[2017-02-21 05:48] LABS: ANION GAP 9 (5-19); BLOOD UREA NITROGEN 17 mg/dL (7-20); CALCIUM 9.3 mg/dL (8.4-10.2); CARBON DIOXIDE 36 mmol/L (22-30); CHLORIDE 100 mmol/L (98-107); CREATININE RESULT 0.58 mg/dL (0.52-1.25); GLUCOSE 115 mg/dL (75-110); MAGNESIUM 2.2 mg/dL (1.6-2.3); POTASSIUM 4.7 mmol/L (3.6-5.0); SODIUM 144.7 mmol/L (137-145)
[2017-02-21] MEDS: LEVOTHYROXINE SODIUM 0.025 MG TABLET PO SCH (06:10)
[2017-02-21] MEDS: LANSOPRAZOLE 30 MG TAB.RAP.DR PO SCH (06:10)
[2017-02-21] MEDS: METHYLPREDNISOLONE INJ 125 MG/2 ML SDV IV SCH ×3 (06:10→22:03)
[2017-02-21] MEDS: LORAZEPAM 1 MG TABLET PO SCH ×3 (06:10→22:04)
[2017-02-21] MEDS: GABAPENTIN 100 MG CAPSULE PO SCH ×3 (06:11→22:04)
[2017-02-21 07:10] LABS: ARTERIAL BLOOD O2 SATURATION 98.1 % (94-98)
[2017-02-21] MEDS: BUDESONIDE NEB 0.5 MG/2 ML AMPUL NEB SCH ×2 (08:43→20:16)
--- NOTE | 2017-02-21 08:56 | PDOC PROGRESS REPORT ---
Subjective Progress Note for:: 02/21/17 Subjective:: She is feeling much better after using the BiPAP Patient claims she feels much better with the BiPAP and sleep better His PCO2 is also coming down Since denied any chest pain denied any shortness of the breath Physical Exam Vital Signs: Temp Pulse Resp BP Pulse Ox 99.0 F 90 18 119/60 98 02/21/17 07:35 02/21/17 08:43 02/21/17 08:43 02/21/17 07:35 02/21/17 08:43 Intake & Output 02/20/17 02/21/17 02/22/17 06:59 06:59 06:59 Intake Total 1395 1330 Balance 1395 1330 Weight 63.7 kg 63 kg General appearance: PRESENT: no acute distress, well-developed, well-nourished Head exam: PRESENT: atraumatic, normocephalic Eye exam: PRESENT: conjunctiva pink, EOMI, PERRLA. ABSENT: scleral icterus Ear exam: PRESENT: normal external ear exam Mouth exam: PRESENT: moist, tongue midline Neck exam: PRESENT: full ROM. ABSENT: carotid bruit, JVD, lymphadenopathy, thyromegaly Respiratory exam: PRESENT: clear to auscultation wilfredo Cardiovascular exam: PRESENT: RRR. ABSENT: diastolic murmur, rubs, systolic murmur Pulses: PRESENT: normal dorsalis pedis pul, +2 pedal pulses bilateral Vascular exam: PRESENT: normal capillary refill GI/Abdominal exam: PRESENT: normal bowel sounds, soft. ABSENT: distended, guarding, mass, organolmegaly, rebound, tenderness Rectal exam: PRESENT: deferred Extremities exam: ABSENT: pedal edema Neurological exam: PRESENT: alert, awake, oriented to person, oriented to place , oriented to time, oriented to situation, CN II-XII grossly intact. ABSENT: motor sensory deficit Psychiatric exam: PRESENT: appropriate affect, normal mood. ABSENT: homicidal ideation, suicidal ideation Skin exam: PRESENT: dry, intact, warm. ABSENT: cyanosis, rash Results Laboratory Results: 02/21/17 04:46 02/21/17 04:46 02/21/17 02/21/17 02/21/17 04:46 04:46 06:50 WBC 7.4 D RBC 3.64 L Hgb 10.7 L Hct 32.4 L MCV 89 MCH 29.4 MCHC 33.1 RDW 16.7 H Plt Count 264 Seg Neutrophils % 90.7 H Lymphocytes % 5.1 L Monocytes % 4.0 Eosinophils % 0.0 Basophils % 0.2 Absolute Neutrophils 6.8 Absolute Lymphocytes 0.4 L Absolute Monocytes 0.3 Absolute Eosinophils 0.0 Absolute Basophils 0.0 Carbonic Acid 1.72 H HCO3/H2CO3 Ratio 19:1 ABG pH 7.40 ABG pCO2 57.2 H ABG pO2 116.7 H ABG HCO3 34.3 H ABG O2 Saturation 98.1 H ABG Base Excess 8.0 FiO2 30% Sodium 144.7 Potassium 4.7 Chloride 100 Carbon Dioxide 36 H Anion Gap 9 BUN 17 Creatinine 0.58 Est GFR ( Amer) > 60 Est GFR (Non-Af Amer) > 60 Glucose 115 H Calcium 9.3 Magnesium 2.2 02/19/17 02/19/17 02/19/17 16:15 16:15 21:35 Creatine Kinase 104 102 CK-MB (CK-2) 1.55 Troponin I < 0.012 02/19/17 02/20/17 02/20/17 21:35 03:37 03:37 Creatine Kinase 86 CK-MB (CK-2) 1.76 1.42 Troponin I < 0.012 < 0.012 Impressions: Chest CT 02/19/17 00:00 IMPRESSION: No significant interval change. No acute findings. Other findings as noted above Lung Scan-VQ NM 02/19/17 00:00 IMPRESSION: There is inhomogeneity of the distribution of tracer activity. When correlated with the chest CT scan this most likely is related to chronic lung disease however this study is indeterminate for pulmonary embolic disease. Chest X-Ray 02/19/17 13:20 IMPRESSION: Obstructive lung disease. No acute infiltrates Assessment & Plan - Diagnosis (1) COPD exacerbation Is this a current diagnosis for this admission?: Yes Plan: Cutdown the steroids continues to current inhalers and nebulizer treatments (2) Respiratory distress Is this a current diagnosis for this admission?: Yes Plan: Discussed with Dr. Goddard about the abnormal VQ scan's and the CT report and he will reevaluate the patient (3) Diabetes Qualifiers: Diabetes mellitus type: type 2 Diabetes mellitus complication status: with unspecified complications Is this a current diagnosis for this admission?: Yes Plan: Put the patient on a sliding scale (4) Hypertension Qualifiers: Hypertension type: essential hypertension Qualified Code(s): I10 - Essential (primary) hypertension Is this a current diagnosis for this admission?: Yes Plan: Continues to current medications (5) Generalized anxiety disorder Is this a current diagnosis for this admission?: Yes - Time Time Spent with patient: 15-24 minutes Medications reviewed and adjusted accordingly: Yes Anticipated discharge: Home Within: Other - Inpatient Certification Medical Necessity: Need Close Monitoring Due to Risk of Patient Decompensation Post Hospital Care: D/C Bung Dropper Documentation - Plan Summary Plan Summary: While patient on long term care social worker immobility with abnormal VQ scan will get the CT angiograms to confirm no PE Will continues to follow with the pulmonary
--- NOTE | 2017-02-21 10:56 | RADIOLOGY REPORT (SQ) ---
EXAM DESCRIPTION: CT CHEST WITHOUT COMPLETED DATE/TIME: 02/21/2017 10:43 am REASON FOR STUDY: hypoxia/sob COMPARISON: None. TECHNIQUE: No intravenous access. Exam cancel. LIMITATIONS: None. FINDINGS: None IMPRESSION: Campaign Fundraiser view. COMMENT: Exam cancelled. TECHNICAL DOCUMENTATION: JOB ID: [id number] [email or web address] All Rights Reserved
[2017-02-21] MEDS: FAMOTIDINE 20 MG TABLET PO SCH ×2 (11:36→22:04)
[2017-02-21] MEDS: ROFLUMILAST 500 MCG TABLET PO SCH (11:36)
[2017-02-21] MEDS: PREDNISONE 10 MG TABLET PO SCH (11:36)
[2017-02-21] MEDS: TAMSULOSIN HCL 0.4 MG CAP.SR.24H PO SCH (11:38)
[2017-02-21] MEDS: LEVOFLOXACIN 500 MG TABLET PO SCH (11:38)
[2017-02-21] MEDS: MULTIVITAMIN TABLET PO SCH (11:38)
[2017-02-21] MEDS: CALCIUM CARBONATE 250 MG/VITAMIN D3 125 UNIT TABLET PO SCH (11:39)
[2017-02-21] MEDS: CEFEPIME 1 GM/D5W RTU 1 GM/50 ML RTUPB IV SCH ×2 (11:39→22:02)
[2017-02-21] MEDS: HYDROXYZINE PAMOATE 25 MG CAPSULE PO SCH (11:39)
[2017-02-21] MEDS: ENOXAPARIN SODIUM INJ 40 MG/0.4 ML DISP.SYRIN SUBCUT SCH (11:40)
[2017-02-21] MEDS: AMLODIPINE BESYLATE 2.5 MG TABLET PO SCH (11:55)
[2017-02-21] MEDS: QUETIAPINE FUMARATE 100 MG TABLET PO SCH (22:03)
[2017-02-21] MEDS: MONTELUKAST SODIUM 10 MG TABLET PO SCH (22:04)
[2017-02-21] MEDS: MIRTAZAPINE 15 MG TABLET PO SCH (22:04)
[2017-02-21] MEDS: TRAZODONE HCL 50 MG TABLET PO SCH (22:05)
[2017-02-22] MEDS: CLONIDINE HCL 0.1 MG TABLET PO SCH ×6 (02:12→21:35)
[2017-02-22] MEDS: IPRATROPIUM/ALBUTEROL 0.5-2.5 MG/3 ML AMPUL NEB SCH ×5 (04:05→19:51)
[2017-02-22] MEDS: LANSOPRAZOLE 30 MG TAB.RAP.DR PO SCH (05:26)
[2017-02-22] MEDS: METHYLPREDNISOLONE INJ 125 MG/2 ML SDV IV SCH (05:27)
[2017-02-22] MEDS: LEVOTHYROXINE SODIUM 0.025 MG TABLET PO SCH (05:27)
[2017-02-22] MEDS: GABAPENTIN 100 MG CAPSULE PO SCH ×3 (05:27→21:32)
[2017-02-22] MEDS: LORAZEPAM 1 MG TABLET PO SCH ×3 (05:27→21:32)
[2017-02-22 06:03] LABS: ABSOLUTE LYMPHOCYTES (AUTO) 0.7 10^3/uL (0.5-4.7); ABSOLUTE MONOCYTES (AUTO) 0.4 10^3/uL (0.1-1.4); ABSOLUTE NEUT (AUTO) 5.9 10^3/uL (1.7-8.2); BASOPHILS % (AUTO) 0.3 % (0-2); HEMATOCRIT 34.3 % (36.0-47.0); HEMOGLOBIN 11.2 g/dL (12.0-15.5); HGB HCT DIFFERENCE -0.7; LYMPHOCYTES % (AUTO) 10.4 % (13-45); MEAN CORPUSCULAR HGB CONC 32.7 g/dL (32.0-36.0); MEAN CORPUSCULAR VOLUME 89 fl (80-97); MONOCYTES % (AUTO) 5.7 % (3-13); RED BLOOD COUNT 3.88 10^6/uL (3.72-5.28); RED CELL DISTRIBUTION WIDTH 16.5 % (11.5-14.0); SEGMENTED NEUTROPHILS % (AUTO) 83.6 % (42-78); WHITE BLOOD COUNT 7.1 10^3/uL (4.0-10.5)
[2017-02-22 06:09] LABS: ANION GAP 7 (5-19); BLOOD UREA NITROGEN 19 mg/dL (7-20); CALCIUM 9.1 mg/dL (8.4-10.2); CARBON DIOXIDE 38 mmol/L (22-30); CHLORIDE 99 mmol/L (98-107); CREATININE RESULT 0.57 mg/dL (0.52-1.25); GLUCOSE 98 mg/dL (75-110); MAGNESIUM 2.2 mg/dL (1.6-2.3); POTASSIUM 4.1 mmol/L (3.6-5.0); SODIUM 144.3 mmol/L (137-145)
[2017-02-22] MEDS: BUDESONIDE NEB 0.5 MG/2 ML AMPUL NEB SCH ×2 (08:03→19:51)
[2017-02-22] MEDS: ENOXAPARIN SODIUM INJ 40 MG/0.4 ML DISP.SYRIN SUBCUT SCH (09:19)
[2017-02-22] MEDS: FAMOTIDINE 20 MG TABLET PO SCH ×2 (09:20→21:33)
[2017-02-22] MEDS: CALCIUM CARBONATE 250 MG/VITAMIN D3 125 UNIT TABLET PO SCH (09:20)
[2017-02-22] MEDS: PREDNISONE 10 MG TABLET PO SCH (09:21)
[2017-02-22] MEDS: TAMSULOSIN HCL 0.4 MG CAP.SR.24H PO SCH (09:21)
[2017-02-22] MEDS: HYDROXYZINE PAMOATE 25 MG CAPSULE PO SCH (09:21)
[2017-02-22] MEDS: MULTIVITAMIN TABLET PO SCH (09:21)
[2017-02-22] MEDS: ROFLUMILAST 500 MCG TABLET PO SCH (09:22)
[2017-02-22] MEDS: CEFEPIME 1 GM/D5W RTU 1 GM/50 ML RTUPB IV SCH (09:22)
[2017-02-22] MEDS: LEVOFLOXACIN 500 MG TABLET PO SCH (09:22)
[2017-02-22] MEDS: AMLODIPINE BESYLATE 2.5 MG TABLET PO SCH (09:24)
[2017-02-22] MEDS ORDERED: PREDNISONE 20 MG TABLET PO SCH ×2 (09:30→10:00)
--- NOTE | 2017-02-22 09:32 | PDOC PROGRESS REPORT ---
Subjective Progress Note for:: 02/22/17 Subjective:: Patient is currently doing much better this She is unable to get the CT angiogram due to the issue of the veins She is denied any chest pain denied any shortness of the breath Patient still very weak and according to the patient while she was in the assisted living patients pretty much in the bedridden conditions probably at this point patient's denied extensive physical therapy and pulmonary rehab Physical Exam Vital Signs: Temp Pulse Resp BP Pulse Ox 99.4 F 88 18 114/65 100 02/22/17 07:45 02/22/17 07:45 02/22/17 07:45 02/22/17 07:45 02/22/17 07:45 Intake & Output 02/21/17 02/22/17 02/23/17 06:59 06:59 06:59 Intake Total 1330 1230 Balance 1330 1230 Weight 63 kg 64.2 kg General appearance: PRESENT: no acute distress, well-developed, well-nourished Head exam: PRESENT: atraumatic, normocephalic Eye exam: PRESENT: conjunctiva pink, EOMI, PERRLA. ABSENT: scleral icterus Ear exam: PRESENT: normal external ear exam Mouth exam: PRESENT: moist, tongue midline Neck exam: PRESENT: full ROM. ABSENT: carotid bruit, JVD, lymphadenopathy, thyromegaly Respiratory exam: PRESENT: clear to auscultation wilfredo Cardiovascular exam: PRESENT: RRR. ABSENT: diastolic murmur, rubs, systolic murmur Pulses: PRESENT: normal dorsalis pedis pul, +2 pedal pulses bilateral Vascular exam: PRESENT: normal capillary refill GI/Abdominal exam: PRESENT: normal bowel sounds, soft. ABSENT: distended, guarding, mass, organolmegaly, rebound, tenderness Rectal exam: PRESENT: deferred Extremities exam: ABSENT: full ROM, left AKA, right AKA, left BKA, right BKA, calf tenderness, joint swelling, pedal edema, tenderness, other Neurological exam: PRESENT: alert, awake, oriented to person, oriented to place , oriented to time, oriented to situation, CN II-XII grossly intact. ABSENT: motor sensory deficit Psychiatric exam: PRESENT: appropriate affect, normal mood. ABSENT: homicidal ideation, suicidal ideation Skin exam: PRESENT: dry, intact, warm. ABSENT: cyanosis, rash Results Laboratory Results: 02/22/17 05:12 02/22/17 05:12 02/22/17 02/22/17 05:12 05:12 WBC 7.1 RBC 3.88 Hgb 11.2 L Hct 34.3 L MCV 89 MCH 29.0 MCHC 32.7 RDW 16.5 H Plt Count 289 Seg Neutrophils % 83.6 H Lymphocytes % 10.4 L Monocytes % 5.7 Eosinophils % 0.0 Basophils % 0.3 Absolute Neutrophils 5.9 Absolute Lymphocytes 0.7 Absolute Monocytes 0.4 Absolute Eosinophils 0.0 Absolute Basophils 0.0 Sodium 144.3 Potassium 4.1 Chloride 99 Carbon Dioxide 38 H Anion Gap 7 BUN 19 Creatinine 0.57 Est GFR ( Amer) > 60 Est GFR (Non-Af Amer) > 60 Glucose 98 Calcium 9.1 Magnesium 2.2 02/19/17 02/19/17 02/19/17 16:15 16:15 21:35 Creatine Kinase 104 102 CK-MB (CK-2) 1.55 Troponin I < 0.012 02/19/17 02/20/17 02/20/17 21:35 03:37 03:37 Creatine Kinase 86 CK-MB (CK-2) 1.76 1.42 Troponin I < 0.012 < 0.012 Impressions: Lung Scan-VQ NM 02/19/17 00:00 IMPRESSION: There is inhomogeneity of the distribution of tracer activity. When correlated with the chest CT scan this most likely is related to chronic lung disease however this study is indeterminate for pulmonary embolic disease. Chest X-Ray 02/19/17 13:20 IMPRESSION: Obstructive lung disease. No acute infiltrates Chest CT 02/21/17 00:00 IMPRESSION: Track Supervisor view. Assessment & Plan - Diagnosis (1) COPD exacerbation Is this a current diagnosis for this admission?: Yes Plan: DC the IV steroid (2) Respiratory distress Is this a current diagnosis for this admission?: Yes Plan: Really well under control with the BiPAP (3) Diabetes Qualifiers: Diabetes mellitus type: type 2 Diabetes mellitus complication status: with unspecified complications Is this a current diagnosis for this admission?: Yes Plan: Put the patient on a sliding scale (4) Hypertension Qualifiers: Hypertension type: essential hypertension Qualified Code(s): I10 - Essential (primary) hypertension Is this a current diagnosis for this admission?: Yes Plan: Continues to current medications (5) Generalized anxiety disorder Is this a current diagnosis for this admission?: Yes Plan: She is currently follow with the psych and continues all psych medications - Time Time Spent with patient: 15-24 minutes Medications reviewed and adjusted accordingly: Yes Anticipated discharge: Home Within: Other - Inpatient Certification Medical Necessity: Significant Comorbidiites Make Outpatient Treatment Too Risky Post Hospital Care: D/C Chief Internal Auditor Documentation - Plan Summary Plan Summary: Continues to current medications discussed with the family on the bedside
[2017-02-22] MEDS ORDERED: PREDNISONE 20 MG TABLET PO ONE (10:45)
[2017-02-22 12:27] LABS: ARTERIAL BLOOD BASE EXCESS 9.5 mmol/L; ARTERIAL BLOOD O2 SATURATION 96.9 % (94-98)
--- NOTE | 2017-02-22 12:36 | PDOC PROGRESS REPORT ---
Subjective Progress Note for:: 02/22/17 Subjective:: I have to wear this mask all the time Physical Exam Vital Signs: Temp Pulse Resp BP Pulse Ox 99.4 F 93 20 114/65 96 02/22/17 07:45 02/22/17 12:23 02/22/17 12:23 02/22/17 07:45 02/22/17 12:23 Intake & Output 02/21/17 02/22/17 02/23/17 06:59 06:59 06:59 Intake Total 1330 1230 Balance 1330 1230 Weight 63 kg 64.2 kg General appearance: PRESENT: no acute distress, cooperative, disheveled, well- developed Head exam: PRESENT: atraumatic, normocephalic Eye exam: PRESENT: conjunctiva pale, EOMI Mouth exam: PRESENT: dry mucosa, neck supple, tongue midline Neck exam: ABSENT: carotid bruit, JVD, lymphadenopathy, thyromegaly Respiratory exam: PRESENT: decreased breath sounds, prolonged expiratory phas, rales, rhonchi, symmetrical, unlabored. ABSENT: accessory muscle use, chest wall tenderness, clear to auscultation wilfredo, crackles, retraction, stridor, tachypnea Cardiovascular exam: PRESENT: RRR, +S1, +S2. ABSENT: clicks, gallop, irregular rhythm Pulses: PRESENT: normal radial pulses GI/Abdominal exam: PRESENT: normal bowel sounds, soft. ABSENT: distended, guarding, mass, organolmegaly, rebound, tenderness Gentrourinary exam: PRESENT: indwelling catheter Extremities exam: ABSENT: calf tenderness, clubbing, joint swelling, pedal edema Musculoskeletal exam: ABSENT: ambulatory, deformity, dislocation Neurological exam: PRESENT: alert, awake Psychiatric exam: PRESENT: normal mood Skin exam: PRESENT: dry, pallor, warm Results Laboratory Results: 02/22/17 05:12 02/22/17 05:12 02/22/17 02/22/17 02/22/17 05:12 05:12 12:15 WBC 7.1 RBC 3.88 Hgb 11.2 L Hct 34.3 L MCV 89 MCH 29.0 MCHC 32.7 RDW 16.5 H Plt Count 289 Seg Neutrophils % 83.6 H Lymphocytes % 10.4 L Monocytes % 5.7 Eosinophils % 0.0 Basophils % 0.3 Absolute Neutrophils 5.9 Absolute Lymphocytes 0.7 Absolute Monocytes 0.4 Absolute Eosinophils 0.0 Absolute Basophils 0.0 Carbonic Acid 1.69 H HCO3/H2CO3 Ratio 21:1 ABG pH 7.42 ABG pCO2 56.1 H ABG pO2 90.1 ABG HCO3 35.7 H ABG O2 Saturation 96.9 ABG Base Excess 9.5 FiO2 3L Sodium 144.3 Potassium 4.1 Chloride 99 Carbon Dioxide 38 H Anion Gap 7 BUN 19 Creatinine 0.57 Est GFR ( Amer) > 60 Est GFR (Non-Af Amer) > 60 Glucose 98 Calcium 9.1 Magnesium 2.2 02/19/17 02/19/17 02/19/17 16:15 16:15 21:35 Creatine Kinase 104 102 CK-MB (CK-2) 1.55 Troponin I < 0.012 02/19/17 02/20/17 02/20/17 21:35 03:37 03:37 Creatine Kinase 86 CK-MB (CK-2) 1.76 1.42 Troponin I < 0.012 < 0.012 Impressions: Lung Scan-VQ NM 02/19/17 00:00 IMPRESSION: There is inhomogeneity of the distribution of tracer activity. When correlated with the chest CT scan this most likely is related to chronic lung disease however this study is indeterminate for pulmonary embolic disease. Chest X-Ray 02/19/17 13:20 IMPRESSION: Obstructive lung disease. No acute infiltrates Chest CT 02/21/17 00:00 IMPRESSION: Field Marketing Manager view. Assessment & Plan - Diagnosis (1) COPD exacerbation Is this a current diagnosis for this admission?: Yes Plan: Labs- All tests 24 hr 02/22/17 02/22/17 05:12 12:15 WBC 7.1 ABG pH 7.42 ABG pCO2 56.1 H ABG pO2 90.1 At or very near her baseline (2) Generalized anxiety disorder Is this a current diagnosis for this admission?: Yes Plan: Multiple etiologies for some respiratory depression Generic Name Dose Route Start Last Admin Trade Name Freq PRN Reason Stop Dose Admin Trazodone HCl 75 mg 02/19/17 22:00 02/21/17 22:05 Desyrel 50 Mg Tablet PO 03/21/17 21:59 Not Given QHS [facility] Hydroxyzine Pamoate 25 mg 02/20/17 10:00 02/22/17 09:21 Vistaril 25 Mg Capsule PO 03/22/17 09:59 25 mg DAILY GIL Quetiapine Fumarate 300 mg 02/19/17 22:00 02/21/17 22:03 Seroquel 100 Mg Tablet PO 03/21/17 21:59 300 mg QHS GIL Lorazepam 1 mg 02/19/17 22:00 02/22/17 05:27 Ativan 1 Mg Tablet PO 02/26/17 21:59 1 mg Q8 GIL (3) Respiratory distress Is this a current diagnosis for this admission?: Yes Plan: Stable at this time
[2017-02-22] MEDS: ACETAMINOPHEN 325 MG TABLET PO PRN (18:26)
[2017-02-22] MEDS: MONTELUKAST SODIUM 10 MG TABLET PO SCH (21:32)
[2017-02-22] MEDS: QUETIAPINE FUMARATE 100 MG TABLET PO SCH (21:33)
[2017-02-22] MEDS: MIRTAZAPINE 15 MG TABLET PO SCH (21:33)
[2017-02-22] MEDS: TRAZODONE HCL 50 MG TABLET PO SCH (21:35)
[2017-02-23] MEDS: IPRATROPIUM/ALBUTEROL 0.5-2.5 MG/3 ML AMPUL NEB SCH ×6 (00:27→20:58)
[2017-02-23] MEDS: CLONIDINE HCL 0.1 MG TABLET PO SCH ×6 (02:27→21:37)
[2017-02-23 05:16] LABS: ABSOLUTE LYMPHOCYTES (AUTO) 1.6 10^3/uL (0.5-4.7); ABSOLUTE MONOCYTES (AUTO) 0.8 10^3/uL (0.1-1.4); ABSOLUTE NEUT (AUTO) 3.9 10^3/uL (1.7-8.2); BASOPHILS % (AUTO) 0.3 % (0-2); EOSINOPHILS % (AUTO) 0.4 % (0-6); HEMATOCRIT 33.5 % (36.0-47.0); HEMOGLOBIN 11.1 g/dL (12.0-15.5); HGB HCT DIFFERENCE -0.2; LYMPHOCYTES % (AUTO) 25.1 % (13-45); MEAN CORPUSCULAR HEMOGLOBIN 29.2 pg (27.0-33.4); MEAN CORPUSCULAR HGB CONC 33.1 g/dL (32.0-36.0); MEAN CORPUSCULAR VOLUME 88 fl (80-97); MONOCYTES % (AUTO) 12.8 % (3-13); RED CELL DISTRIBUTION WIDTH 16.3 % (11.5-14.0); SEGMENTED NEUTROPHILS % (AUTO) 61.4 % (42-78); WHITE BLOOD COUNT 6.4 10^3/uL (4.0-10.5)
[2017-02-23 05:50] LABS: ANION GAP 7 (5-19); BLOOD UREA NITROGEN 19 mg/dL (7-20); CALCIUM 9.3 mg/dL (8.4-10.2); CARBON DIOXIDE 37 mmol/L (22-30); CHLORIDE 99 mmol/L (98-107); CREATININE RESULT 0.59 mg/dL (0.52-1.25); GLUCOSE 88 mg/dL (75-110); SODIUM 142.7 mmol/L (137-145)
[2017-02-23] MEDS: LANSOPRAZOLE 30 MG TAB.RAP.DR PO SCH (06:12)
[2017-02-23] MEDS: LEVOTHYROXINE SODIUM 0.025 MG TABLET PO SCH (06:12)
[2017-02-23] MEDS: GABAPENTIN 100 MG CAPSULE PO SCH ×3 (06:12→21:34)
[2017-02-23] MEDS: LORAZEPAM 1 MG TABLET PO SCH ×3 (06:13→21:36)
[2017-02-23] MEDS: BUDESONIDE NEB 0.5 MG/2 ML AMPUL NEB SCH ×2 (07:44→20:58)
[2017-02-23] MEDS: MULTIVITAMIN TABLET PO SCH (09:27)
[2017-02-23] MEDS: FAMOTIDINE 20 MG TABLET PO SCH ×2 (09:27→21:36)
[2017-02-23] MEDS: LEVOFLOXACIN 500 MG TABLET PO SCH (09:27)
[2017-02-23] MEDS: HYDROXYZINE PAMOATE 25 MG CAPSULE PO SCH (09:27)
[2017-02-23] MEDS: CALCIUM CARBONATE 250 MG/VITAMIN D3 125 UNIT TABLET PO SCH (09:27)
[2017-02-23] MEDS: TAMSULOSIN HCL 0.4 MG CAP.SR.24H PO SCH (09:27)
[2017-02-23] MEDS: ROFLUMILAST 500 MCG TABLET PO SCH (09:28)
[2017-02-23] MEDS: PREDNISONE 20 MG TABLET PO SCH (09:28)
[2017-02-23] MEDS: ENOXAPARIN SODIUM INJ 40 MG/0.4 ML DISP.SYRIN SUBCUT SCH (09:28)
--- NOTE | 2017-02-23 09:29 | PDOC PROGRESS REPORT ---
Subjective Progress Note for:: 02/23/17 Subjective:: Patient is currently doing well Patient's denied any chest pain denied any shortness of the breath Physical Exam Vital Signs: Temp Pulse Resp BP Pulse Ox 98.6 F 91 21 H 120/64 99 02/23/17 08:15 02/23/17 08:16 02/23/17 08:15 02/23/17 08:16 02/23/17 08:16 Intake & Output 02/22/17 02/23/17 02/24/17 06:59 06:59 06:59 Intake Total 1230 1669 100 Balance 1230 1669 100 Weight 64.2 kg 65.5 kg General appearance: PRESENT: no acute distress, well-developed, well-nourished Head exam: PRESENT: atraumatic, normocephalic Eye exam: PRESENT: conjunctiva pink, EOMI, PERRLA. ABSENT: scleral icterus Ear exam: PRESENT: normal external ear exam Mouth exam: PRESENT: moist, tongue midline Neck exam: PRESENT: full ROM. ABSENT: carotid bruit, JVD, lymphadenopathy, thyromegaly Respiratory exam: PRESENT: clear to auscultation wilfredo Cardiovascular exam: PRESENT: RRR. ABSENT: diastolic murmur, rubs, systolic murmur Pulses: PRESENT: normal dorsalis pedis pul, +2 pedal pulses bilateral Vascular exam: PRESENT: normal capillary refill GI/Abdominal exam: PRESENT: normal bowel sounds, soft. ABSENT: distended, guarding, mass, organolmegaly, rebound, tenderness Rectal exam: PRESENT: deferred Neurological exam: PRESENT: alert, awake, oriented to person, oriented to place , oriented to time, oriented to situation, CN II-XII grossly intact. ABSENT: motor sensory deficit Psychiatric exam: PRESENT: appropriate affect, normal mood. ABSENT: homicidal ideation, suicidal ideation Skin exam: PRESENT: dry, intact, warm. ABSENT: cyanosis, rash Results Laboratory Results: 02/23/17 04:53 02/23/17 04:53 02/22/17 02/23/17 02/23/17 12:15 04:53 04:53 WBC 6.4 RBC 3.80 Hgb 11.1 L Hct 33.5 L MCV 88 MCH 29.2 MCHC 33.1 RDW 16.3 H Plt Count 265 Seg Neutrophils % 61.4 Lymphocytes % 25.1 Monocytes % 12.8 Eosinophils % 0.4 Basophils % 0.3 Absolute Neutrophils 3.9 Absolute Lymphocytes 1.6 Absolute Monocytes 0.8 Absolute Eosinophils 0.0 Absolute Basophils 0.0 Carbonic Acid 1.69 H HCO3/H2CO3 Ratio 21:1 ABG pH 7.42 ABG pCO2 56.1 H ABG pO2 90.1 ABG HCO3 35.7 H ABG O2 Saturation 96.9 ABG Base Excess 9.5 FiO2 3L Sodium 142.7 Potassium 4.0 Chloride 99 Carbon Dioxide 37 H Anion Gap 7 BUN 19 Creatinine 0.59 Est GFR ( Amer) > 60 Est GFR (Non-Af Amer) > 60 Glucose 88 Calcium 9.3 02/19/17 02/19/17 02/19/17 16:15 16:15 21:35 Creatine Kinase 104 102 CK-MB (CK-2) 1.55 Troponin I < 0.012 02/19/17 02/20/17 02/20/17 21:35 03:37 03:37 Creatine Kinase 86 CK-MB (CK-2) 1.76 1.42 Troponin I < 0.012 < 0.012 Impressions: Lung Scan-VQ NM 02/19/17 00:00 IMPRESSION: There is inhomogeneity of the distribution of tracer activity. When correlated with the chest CT scan this most likely is related to chronic lung disease however this study is indeterminate for pulmonary embolic disease. Chest X-Ray 02/19/17 13:20 IMPRESSION: Obstructive lung disease. No acute infiltrates Chest CT 02/21/17 00:00 IMPRESSION: Dump Truck Operator view. Assessment & Plan - Diagnosis (1) COPD exacerbation Is this a current diagnosis for this admission?: Yes Plan: DC the IV steroid (2) Respiratory distress Is this a current diagnosis for this admission?: Yes Plan: Really well under control with the BiPAP (3) Diabetes Qualifiers: Diabetes mellitus type: type 2 Diabetes mellitus complication status: with unspecified complications Is this a current diagnosis for this admission?: Yes Plan: Put the patient on a sliding scale (4) Hypertension Qualifiers: Hypertension type: essential hypertension Qualified Code(s): I10 - Essential (primary) hypertension Is this a current diagnosis for this admission?: Yes Plan: Continues to current medications (5) Generalized anxiety disorder Is this a current diagnosis for this admission?: Yes Plan: She is currently follow with the psych and continues all psych medications - Time Time Spent with patient: 15-24 minutes Medications reviewed and adjusted accordingly: Yes Anticipated discharge: Home Within: Other - Inpatient Certification Medical Necessity: Need Close Monitoring Due to Risk of Patient Decompensation Post Hospital Care: D/C Electrician Ship Documentation - Plan Summary Plan Summary: Continues to current medications
[2017-02-23] MEDS: AMLODIPINE BESYLATE 2.5 MG TABLET PO SCH (09:32)
--- NOTE | 2017-02-23 14:09 | EKG REPORT ---
SEVERITY:- BORDERLINE ECG - SINUS RHYTHM ATRIAL PREMATURE COMPLEX BORDERLINE T ABNORMALITIES, ANT-LAT LEADS : Confirmed by: Sarah Beth Kate MD 23-Feb-2017 14:09:07
[2017-02-23] MEDS: QUETIAPINE FUMARATE 100 MG TABLET PO SCH (21:34)
[2017-02-23] MEDS: MONTELUKAST SODIUM 10 MG TABLET PO SCH (21:35)
[2017-02-23] MEDS: MIRTAZAPINE 15 MG TABLET PO SCH (21:35)
[2017-02-23] MEDS: TRAZODONE HCL 50 MG TABLET PO SCH (21:51)
[2017-02-24] MEDS: IPRATROPIUM/ALBUTEROL 0.5-2.5 MG/3 ML AMPUL NEB SCH ×6 (00:30→20:15)
[2017-02-24] MEDS: CLONIDINE HCL 0.1 MG TABLET PO SCH ×6 (01:59→22:19)
[2017-02-24] MEDS: LEVOTHYROXINE SODIUM 0.025 MG TABLET PO SCH (06:20)
[2017-02-24 06:21] LABS: ABSOLUTE EOSINOPHILS # (AUTO) 0.1 10^3/uL (0.0-0.6); ABSOLUTE LYMPHOCYTES (AUTO) 2.4 10^3/uL (0.5-4.7); ABSOLUTE MONOCYTES (AUTO) 0.8 10^3/uL (0.1-1.4); ABSOLUTE NEUT (AUTO) 3.7 10^3/uL (1.7-8.2); BASOPHILS % (AUTO) 0.5 % (0-2); HEMATOCRIT 34.9 % (36.0-47.0); HEMOGLOBIN 11.6 g/dL (12.0-15.5); HGB HCT DIFFERENCE -0.1; LYMPHOCYTES % (AUTO) 33.6 % (13-45); MEAN CORPUSCULAR HEMOGLOBIN 29.5 pg (27.0-33.4); MEAN CORPUSCULAR HGB CONC 33.4 g/dL (32.0-36.0); MEAN CORPUSCULAR VOLUME 88 fl (80-97); MONOCYTES % (AUTO) 11.9 % (3-13); RED BLOOD COUNT 3.95 10^6/uL (3.72-5.28); RED CELL DISTRIBUTION WIDTH 16.5 % (11.5-14.0); WHITE BLOOD COUNT 7.1 10^3/uL (4.0-10.5)
[2017-02-24] MEDS: LANSOPRAZOLE 30 MG TAB.RAP.DR PO SCH (06:21)
[2017-02-24] MEDS: GABAPENTIN 100 MG CAPSULE PO SCH ×3 (06:23→22:08)
[2017-02-24] MEDS: LORAZEPAM 1 MG TABLET PO SCH ×3 (06:23→22:09)
[2017-02-24 06:52] LABS: ANION GAP 7 (5-19); BLOOD UREA NITROGEN 21 mg/dL (7-20); CALCIUM 8.9 mg/dL (8.4-10.2); CARBON DIOXIDE 38 mmol/L (22-30); CHLORIDE 100 mmol/L (98-107); CREATININE RESULT 0.51 mg/dL (0.52-1.25); GLUCOSE 78 mg/dL (75-110); POTASSIUM 4.4 mmol/L (3.6-5.0); SODIUM 144.7 mmol/L (137-145)
[2017-02-24] MEDS: BUDESONIDE NEB 0.5 MG/2 ML AMPUL NEB SCH ×2 (07:35→20:15)
--- NOTE | 2017-02-24 09:25 | PDOC PROGRESS REPORT ---
Subjective Progress Note for:: 02/24/17 Subjective:: Patient is currently doing well Patient's denied any chest pain denied any shortness of the breath Physical Exam Vital Signs: Temp Pulse Resp BP Pulse Ox 98.9 F 99 23 H 119/59 L 100 02/24/17 07:53 02/24/17 07:53 02/24/17 07:53 02/24/17 07:53 02/24/17 07:53 Intake & Output 02/23/17 02/24/17 02/25/17 06:59 06:59 06:59 Intake Total 1669 1738 Balance 1669 1738 Weight 65.3 kg General appearance: PRESENT: no acute distress, well-developed, well-nourished Head exam: PRESENT: atraumatic, normocephalic Eye exam: PRESENT: conjunctiva pink, EOMI, PERRLA. ABSENT: scleral icterus Ear exam: PRESENT: normal external ear exam Mouth exam: PRESENT: moist, tongue midline Neck exam: PRESENT: full ROM. ABSENT: carotid bruit, JVD, lymphadenopathy, thyromegaly Respiratory exam: PRESENT: clear to auscultation wilfredo Cardiovascular exam: PRESENT: RRR. ABSENT: diastolic murmur, rubs, systolic murmur Pulses: PRESENT: normal dorsalis pedis pul, +2 pedal pulses bilateral Vascular exam: PRESENT: normal capillary refill GI/Abdominal exam: PRESENT: normal bowel sounds, soft. ABSENT: distended, guarding, mass, organolmegaly, rebound, tenderness Rectal exam: PRESENT: deferred Extremities exam: ABSENT: pedal edema Neurological exam: PRESENT: alert, awake, oriented to person, oriented to place , oriented to time, oriented to situation, CN II-XII grossly intact. ABSENT: motor sensory deficit Psychiatric exam: PRESENT: appropriate affect, normal mood. ABSENT: homicidal ideation, suicidal ideation Skin exam: PRESENT: dry, intact, warm. ABSENT: cyanosis, rash Results Laboratory Results: 02/24/17 05:26 02/24/17 05:26 02/24/17 02/24/17 05:26 05:26 WBC 7.1 RBC 3.95 Hgb 11.6 L Hct 34.9 L MCV 88 MCH 29.5 MCHC 33.4 RDW 16.5 H Plt Count 302 Seg Neutrophils % 52.0 Lymphocytes % 33.6 Monocytes % 11.9 Eosinophils % 2.0 Basophils % 0.5 Absolute Neutrophils 3.7 Absolute Lymphocytes 2.4 Absolute Monocytes 0.8 Absolute Eosinophils 0.1 Absolute Basophils 0.0 Sodium 144.7 Potassium 4.4 Chloride 100 Carbon Dioxide 38 H Anion Gap 7 BUN 21 H Creatinine 0.51 L Est GFR ( Amer) > 60 Est GFR (Non-Af Amer) > 60 Glucose 78 Calcium 8.9 02/19/17 02/19/17 02/19/17 16:15 16:15 21:35 Creatine Kinase 104 102 CK-MB (CK-2) 1.55 Troponin I < 0.012 02/19/17 02/20/17 02/20/17 21:35 03:37 03:37 Creatine Kinase 86 CK-MB (CK-2) 1.76 1.42 Troponin I < 0.012 < 0.012 Impressions: Lung Scan-VQ NM 02/19/17 00:00 IMPRESSION: There is inhomogeneity of the distribution of tracer activity. When correlated with the chest CT scan this most likely is related to chronic lung disease however this study is indeterminate for pulmonary embolic disease. Chest X-Ray 02/19/17 13:20 IMPRESSION: Obstructive lung disease. No acute infiltrates Chest CT 02/21/17 00:00 IMPRESSION: Remelter view. Assessment & Plan - Diagnosis (1) COPD exacerbation Is this a current diagnosis for this admission?: Yes Plan: DC the IV steroid (2) Respiratory distress Is this a current diagnosis for this admission?: Yes Plan: Really well under control with the BiPAP (3) Diabetes Qualifiers: Diabetes mellitus type: type 2 Diabetes mellitus complication status: with unspecified complications Is this a current diagnosis for this admission?: Yes Plan: Put the patient on a sliding scale (4) Hypertension Qualifiers: Hypertension type: essential hypertension Qualified Code(s): I10 - Essential (primary) hypertension Is this a current diagnosis for this admission?: Yes Plan: Continues to current medications (5) Generalized anxiety disorder Is this a current diagnosis for this admission?: Yes Plan: She is currently follow with the psych and continues all psych medications - Time Time Spent with patient: 15-24 minutes Medications reviewed and adjusted accordingly: Yes Anticipated discharge: Home Within: Other - Inpatient Certification Medical Necessity: Need Close Monitoring Due to Risk of Patient Decompensation Post Hospital Care: D/C Regional Project Manager Documentation - Plan Summary Plan Summary: Plan to discharge home tomorrow
[2017-02-24] MEDS: HYDROXYZINE PAMOATE 25 MG CAPSULE PO SCH (10:28)
[2017-02-24] MEDS: LEVOFLOXACIN 500 MG TABLET PO SCH (10:28)
[2017-02-24] MEDS: CALCIUM CARBONATE 250 MG/VITAMIN D3 125 UNIT TABLET PO SCH (10:28)
[2017-02-24] MEDS: PREDNISONE 20 MG TABLET PO SCH (10:29)
[2017-02-24] MEDS: ROFLUMILAST 500 MCG TABLET PO SCH (10:29)
[2017-02-24] MEDS: TAMSULOSIN HCL 0.4 MG CAP.SR.24H PO SCH (10:29)
[2017-02-24] MEDS: FAMOTIDINE 20 MG TABLET PO SCH ×2 (10:29→22:09)
[2017-02-24] MEDS: MULTIVITAMIN TABLET PO SCH (10:29)
[2017-02-24] MEDS: ENOXAPARIN SODIUM INJ 40 MG/0.4 ML DISP.SYRIN SUBCUT SCH (10:30)
[2017-02-24] MEDS: AMLODIPINE BESYLATE 2.5 MG TABLET PO SCH (10:39)
[2017-02-24] MEDS: ACETAMINOPHEN 325 MG TABLET PO PRN (18:36)
[2017-02-24] MEDS: MIRTAZAPINE 15 MG TABLET PO SCH (22:08)
[2017-02-24] MEDS: MONTELUKAST SODIUM 10 MG TABLET PO SCH (22:09)
[2017-02-24] MEDS: QUETIAPINE FUMARATE 100 MG TABLET PO SCH (22:17)
[2017-02-24] MEDS: TRAZODONE HCL 50 MG TABLET PO SCH (22:19)
[2017-02-25] MEDS: IPRATROPIUM/ALBUTEROL 0.5-2.5 MG/3 ML AMPUL NEB SCH ×4 (00:06→12:33)
[2017-02-25] MEDS: CLONIDINE HCL 0.1 MG TABLET PO SCH ×2 (01:19→06:40)
[2017-02-25] MEDS: LEVOTHYROXINE SODIUM 0.025 MG TABLET PO SCH (06:36)
[2017-02-25] MEDS: GABAPENTIN 100 MG CAPSULE PO SCH ×2 (06:36→13:01)
[2017-02-25] MEDS: LORAZEPAM 1 MG TABLET PO SCH ×2 (06:36→13:01)
[2017-02-25] MEDS: LANSOPRAZOLE 30 MG TAB.RAP.DR PO SCH (06:37)
[2017-02-25 07:25] LABS: ANION GAP 7 (5-19); BLOOD UREA NITROGEN 13 mg/dL (7-20); CALCIUM 8.8 mg/dL (8.4-10.2); CARBON DIOXIDE 37 mmol/L (22-30); CHLORIDE 97 mmol/L (98-107); CREATININE RESULT 0.49 mg/dL (0.52-1.25); GLUCOSE 84 mg/dL (75-110); POTASSIUM 4.6 mmol/L (3.6-5.0); SODIUM 141.3 mmol/L (137-145)
[2017-02-25] MEDS ORDERED: PREDNISONE 20 MG TABLET PO SCH (07:53)
[2017-02-25] MEDS: BUDESONIDE NEB 0.5 MG/2 ML AMPUL NEB SCH (08:01)
[2017-02-25] MEDS: ACETAMINOPHEN 325 MG TABLET PO PRN (08:24)
[2017-02-25 09:13] LABS: ABSOLUTE EOSINOPHILS # (AUTO) 0.2 10^3/uL (0.0-0.6); ABSOLUTE LYMPHOCYTES (AUTO) 2.2 10^3/uL (0.5-4.7); ABSOLUTE MONOCYTES (AUTO) 0.7 10^3/uL (0.1-1.4); ABSOLUTE NEUT (AUTO) 4.7 10^3/uL (1.7-8.2); BASOPHILS % (AUTO) 0.4 % (0-2); EOSINOPHILS % (AUTO) 2.8 % (0-6); HEMATOCRIT 35.9 % (36.0-47.0); HEMOGLOBIN 11.7 g/dL (12.0-15.5); HGB HCT DIFFERENCE -0.8; LYMPHOCYTES % (AUTO) 27.8 % (13-45); MEAN CORPUSCULAR HGB CONC 32.7 g/dL (32.0-36.0); MEAN CORPUSCULAR VOLUME 89 fl (80-97); MONOCYTES % (AUTO) 9.3 % (3-13); RED BLOOD COUNT 4.04 10^6/uL (3.72-5.28); RED CELL DISTRIBUTION WIDTH 16.2 % (11.5-14.0); SEGMENTED NEUTROPHILS % (AUTO) 59.7 % (42-78); WHITE BLOOD COUNT 7.8 10^3/uL (4.0-10.5)
[2017-02-25] MEDS: MULTIVITAMIN TABLET PO SCH (09:38)
[2017-02-25] MEDS: ROFLUMILAST 500 MCG TABLET PO SCH (09:39)
[2017-02-25] MEDS: FAMOTIDINE 20 MG TABLET PO SCH (09:39)
[2017-02-25] MEDS: HYDROXYZINE PAMOATE 25 MG CAPSULE PO SCH (09:39)
[2017-02-25] MEDS: LEVOFLOXACIN 500 MG TABLET PO SCH (09:39)
[2017-02-25] MEDS: TAMSULOSIN HCL 0.4 MG CAP.SR.24H PO SCH (09:40)
[2017-02-25] MEDS: CALCIUM CARBONATE 250 MG/VITAMIN D3 125 UNIT TABLET PO SCH (09:40)
[2017-02-25] MEDS: ENOXAPARIN SODIUM INJ 40 MG/0.4 ML DISP.SYRIN SUBCUT SCH (09:41)
[2017-02-25] MEDS: AMLODIPINE BESYLATE 2.5 MG TABLET PO SCH (09:41)
[2017-02-25] MEDS ORDERED: PREDNISONE 10 MG TABLET PO SCH (10:00)
--- NOTE | 2017-02-25 12:15 | PDOC DISCHARGE SUMMARY ---
General - Admit/Disc Date/PCP Admission Date/Primary Care Provider: 02/19/17 15:39 SILVINA KABA MD Discharge Date: 02/25/17 - Discharge Diagnosis (1) COPD exacerbation Is this a current diagnosis for this admission?: Yes Summary: Currently all resolved (2) Respiratory distress Is this a current diagnosis for this admission?: Yes Summary: Patient's currently follow with the pulmonary and the use the BiPAP as directed (3) Diabetes Is this a current diagnosis for this admission?: Yes Summary: Currently stable continues to current medications (4) Hypertension Is this a current diagnosis for this admission?: Yes Summary: Continues to current medication (5) Generalized anxiety disorder Is this a current diagnosis for this admission?: Yes Summary: And also see a psychiatrist - Additional Information Discharge Diet: Diabetic Discharge Activity: Activity As Tolerated Home Medications: Acetaminophen [Tylenol 325 mg Tablet] 650 mg PO Q4HP PRN 02/19/17 Amlodipine Besylate [Norvasc 2.5 mg Tablet] 2.5 mg PO DAILY 02/19/17 Calcium Carbonate/Vitamin D3 [Calcium 600-Vit D3 2,500 Sftgl] 1 each PO DAILY Fluticasone Propionate [Flovent Diskus] 50 mcg IH DAILY 02/19/17 Fluticasone/Salmeterol [Advair 500-50 Diskus 28 Dose] 1 dose IH DAILY 02/19/17 Gabapentin [Neurontin 100 mg Capsule] 100 mg PO Q8 02/19/17 Hydroxyzine Pamoate [Vistaril 25 mg Capsule] 25 mg PO DAILY 02/19/17 Levothyroxine Sodium [Synthroid 0.025 mg Tablet] 25 mcg PO QAM 02/19/17 Lorazepam [Ativan] 1 mg PO Q8 02/19/17 Mirtazapine 30 mg PO QHS 02/19/17 Montelukast Sodium [Singulair 10 mg Tablet] 10 mg PO QHS 02/19/17 Multivit-Min/Iron/Folic/Lutein [Centrum Silver Women Tablet] 1 each PO DAILY Omeprazole 40 mg PO DAILY 02/19/17 Prednisone [Deltasone 10 mg Tablet] 10 mg PO DAILY 02/19/17 Quetiapine Fumarate [Seroquel] 300 mg PO QHS 02/19/17 Roflumilast [Daliresp 500 mcg Tablet] 500 mcg PO DAILY 02/19/17 Tamsulosin HCl [Flomax] 0.4 mg PO DAILY 02/19/17 Tiotropium [place] [Spiriva] 18 mcg IH DAILY 02/19/17 Trazodone HCl [Desyrel 50 mg Tablet] 75 mg PO QHS 02/19/17 Levofloxacin [Levaquin 500 mg Tablet] 500 mg PO DAILY #7 tablet 02/25/17 Prednisone [Deltasone 20 mg Tablet] 10 mg PO DAILY #30 tablet 02/25/17 History of Present Illness History of Present Illness: BRYON BONILLA is a 56 year old female This is a 56-year-old female with significant history of the end-stage COPDHistory of the hypertension and type 2 diabetes mellitus with a significant history of the anxiety disorders and also schizophreniaWith recently moved from the other state the patient was living in the assisted livingCame to the emergency department with a complaint of shortness of the breath and increasing more cough and congestion'sIn the ER patient's initial workup is suggesting COPD with acute exacerbations and patient was initially put on the BiPAP because of the respiratory distress and elevated PCO2. Patient still have the productive sputum with a white discharge/pt see pulmonary last ek and did ct scan and told pnemonia and start levaquin and also s/o use prn o2 at night but not sure Patient also see a as outpatient Hospital Course Hospital Course: This is a 56-year-old female she presents the emergency department with a complaint was shortness of the breath and increasing more cough and congestion' sAnd patient was admitting in the hospital because of the respiratory distress and COPD with acute exacerbations Patient seen by the pulmonary and initially put the patient on the BiPAP and patient actually feels much better and every time patient is short of breath patient use the BiPAP and it works very well and a pulmonary suggest to use as needed as an about at nighttime Patients have end-stage COPD and currently see a pulmonary as outpatient Patient also have a VQ scan was done was indeterminant due to the severe COPD and at this point discussed with the pulmonary and suggest that unlikely any underlying pulmonary embolismAnd unable to get the CT angiogram due to the patient have significant vein issues Patient's otherwise feeling much better and at this point patient discharged home with the stable conditions Patient also put on aspirin 81 mg Physical Exam Vital Signs: Temp Pulse Resp BP Pulse Ox 100.9 F H 92 16 118/65 99 02/25/17 07:32 02/25/17 08:01 02/25/17 08:01 02/25/17 07:32 02/25/17 08:01 Intake & Output 02/24/17 02/25/17 02/26/17 06:59 06:59 06:59 Intake Total 1738 1490 Balance 1738 1490 Weight 65.3 kg 62.3 kg General appearance: PRESENT: no acute distress, well-developed, well-nourished Head exam: PRESENT: atraumatic, normocephalic Eye exam: PRESENT: conjunctiva pink, EOMI, PERRLA. ABSENT: scleral icterus Ear exam: PRESENT: normal external ear exam Mouth exam: PRESENT: moist, tongue midline Neck exam: PRESENT: full ROM. ABSENT: carotid bruit, JVD, lymphadenopathy, thyromegaly Respiratory exam: PRESENT: clear to auscultation wilfredo Cardiovascular exam: PRESENT: RRR. ABSENT: diastolic murmur, rubs, systolic murmur Pulses: PRESENT: normal dorsalis pedis pul, +2 pedal pulses bilateral Vascular exam: PRESENT: normal capillary refill GI/Abdominal exam: PRESENT: normal bowel sounds, soft. ABSENT: distended, guarding, mass, organolmegaly, rebound, tenderness Rectal exam: PRESENT: deferred Extremities exam: ABSENT: pedal edema Neurological exam: PRESENT: alert, awake, oriented to person, oriented to place , oriented to time, oriented to situation, CN II-XII grossly intact. ABSENT: motor sensory deficit Psychiatric exam: PRESENT: appropriate affect, normal mood. ABSENT: homicidal ideation, suicidal ideation Skin exam: PRESENT: dry, intact, warm. ABSENT: cyanosis, rash Results Laboratory Results: 02/25/17 09:00 02/25/17 06:13 02/25/17 02/25/17 06:13 09:00 WBC 7.8 RBC 4.04 Hgb 11.7 L Hct 35.9 L MCV 89 MCH 29.0 MCHC 32.7 RDW 16.2 H Plt Count 272 Seg Neutrophils % 59.7 Lymphocytes % 27.8 Monocytes % 9.3 Eosinophils % 2.8 Basophils % 0.4 Absolute Neutrophils 4.7 Absolute Lymphocytes 2.2 Absolute Monocytes 0.7 Absolute Eosinophils 0.2 Absolute Basophils 0.0 Sodium 141.3 Potassium 4.6 Chloride 97 L Carbon Dioxide 37 H Anion Gap 7 BUN 13 Creatinine 0.49 L Est GFR ( Amer) > 60 Est GFR (Non-Af Amer) > 60 Glucose 84 Calcium 8.8 02/19/17 02/19/17 02/19/17 16:15 16:15 21:35 Creatine Kinase 104 102 CK-MB (CK-2) 1.55 Troponin I < 0.012 02/19/17 02/20/17 02/20/17 21:35 03:37 03:37 Creatine Kinase 86 CK-MB (CK-2) 1.76 1.42 Troponin I < 0.012 < 0.012 Impressions: Lung Scan-VQ NM 02/19/17 00:00 IMPRESSION: There is inhomogeneity of the distribution of tracer activity. When correlated with the chest CT scan this most likely is related to chronic lung disease however this study is indeterminate for pulmonary embolic disease. Chest X-Ray 02/19/17 13:20 IMPRESSION: Obstructive lung disease. 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 Plan Time Spent: Greater than 30 Minutes - Patient's discharge home follow-up outpatients pulmonary Patient's unable to move so we will get the physical therapy and home health Discussed with the patient and the family about the patient's current conditions
--- NOTE | 2017-02-25 13:04 | PDOC PROGRESS REPORT ---
Subjective Progress Note for:: 02/25/17 - acute/chronic resp failure Subjective:: ready to go home Physical Exam Vital Signs: Temp Pulse Resp BP Pulse Ox 99.2 F 100 16 107/62 95 02/25/17 11:16 02/25/17 11:16 02/25/17 11:16 02/25/17 11:16 02/25/17 11:16 Intake & Output 02/24/17 02/25/17 02/26/17 06:59 06:59 06:59 Intake Total 1738 1490 Balance 1738 1490 Weight 65.3 kg 62.3 kg General appearance: PRESENT: no acute distress, cooperative, disheveled, obese, well-developed Head exam: PRESENT: atraumatic, normocephalic Eye exam: PRESENT: conjunctiva pale. ABSENT: conjunctival injection, conjunctiva pink, nystagmus, periorbital swelling Mouth exam: PRESENT: dry mucosa, neck supple, tongue midline. ABSENT: laceration, moist Neck exam: ABSENT: carotid bruit, JVD, lymphadenopathy, thyromegaly Respiratory exam: PRESENT: decreased breath sounds, prolonged expiratory phas, rhonchi, symmetrical, unlabored, wheezes. ABSENT: accessory muscle use, chest wall tenderness, clear to auscultation wilfredo, crackles, rales, retraction, stridor , tachypnea Cardiovascular exam: PRESENT: RRR, +S1, +S2. ABSENT: clicks, gallop, irregular rhythm, rubs Pulses: PRESENT: normal radial pulses GI/Abdominal exam: PRESENT: normal bowel sounds, soft. ABSENT: distended, guarding, mass, organolmegaly, rebound, tenderness Extremities exam: ABSENT: calf tenderness, clubbing, joint swelling, pedal edema Musculoskeletal exam: ABSENT: deformity, dislocation, tenderness Neurological exam: PRESENT: alert, awake Psychiatric exam: PRESENT: normal mood Skin exam: PRESENT: dry, pallor, warm Results Laboratory Results: 02/25/17 09:00 02/25/17 06:13 02/25/17 02/25/17 06:13 09:00 WBC 7.8 RBC 4.04 Hgb 11.7 L Hct 35.9 L MCV 89 MCH 29.0 MCHC 32.7 RDW 16.2 H Plt Count 272 Seg Neutrophils % 59.7 Lymphocytes % 27.8 Monocytes % 9.3 Eosinophils % 2.8 Basophils % 0.4 Absolute Neutrophils 4.7 Absolute Lymphocytes 2.2 Absolute Monocytes 0.7 Absolute Eosinophils 0.2 Absolute Basophils 0.0 Sodium 141.3 Potassium 4.6 Chloride 97 L Carbon Dioxide 37 H Anion Gap 7 BUN 13 Creatinine 0.49 L Est GFR ( Amer) > 60 Est GFR (Non-Af Amer) > 60 Glucose 84 Calcium 8.8 02/19/17 02/19/17 02/19/17 16:15 16:15 21:35 Creatine Kinase 104 102 CK-MB (CK-2) 1.55 Troponin I < 0.012 02/19/17 02/20/17 02/20/17 21:35 03:37 03:37 Creatine Kinase 86 CK-MB (CK-2) 1.76 1.42 Troponin I < 0.012 < 0.012 Impressions: Lung Scan-VQ NM 02/19/17 00:00 IMPRESSION: There is inhomogeneity of the distribution of tracer activity. When correlated with the chest CT scan this most likely is related to chronic lung disease however this study is indeterminate for pulmonary embolic disease. Chest X-Ray 02/19/17 13:20 IMPRESSION: Obstructive lung disease. No acute infiltrates Chest CT 02/21/17 00:00 IMPRESSION: Credit Correspondence Clerk view. Assessment & Plan - Diagnosis (1) COPD exacerbation Is this a current diagnosis for this admission?: Yes Plan: Chronic hypercapnic respiratory failure BiPAP at home with FiO2 of 30% inspiratory pressure 14 expiratory pressure of 6 rate of 12 (2) Generalized anxiety disorder Is this a current diagnosis for this admission?: Yes Plan: Multiple etiologies for some respiratory depression Generic Name Dose Route Start Last Admin Trade Name Sugey PRN Reason Stop Dose Admin Trazodone HCl 75 mg 02/19/17 22:00 02/21/17 22:05 Desyrel 50 Mg Tablet PO 03/21/17 21:59 Not Given QHS GIL Hydroxyzine Pamoate 25 mg 02/20/17 10:00 02/22/17 09:21 Vistaril 25 Mg Capsule PO 03/22/17 09:59 25 mg DAILY GIL Quetiapine Fumarate 300 mg 02/19/17 22:00 02/21/17 22:03 Seroquel 100 Mg Tablet PO 03/21/17 21:59 300 mg QHS GIL Lorazepam 1 mg 02/19/17 22:00 02/22/17 05:27 Ativan 1 Mg Tablet PO 02/26/17 21:59 1 mg Q8 GIL (3) Respiratory distress Is this a current diagnosis for this admission?: Yes Plan: Improved
[2017-02-25 13:11] VITALS: BP 111/64
== END 2017-02-25 13:34 | disposition home health service (06) | DRG 190 ==
LOC: ER 12:56 → EH 15:39 → 3W 18:54
PROVIDERS: ADMIT Family Medicine; ATTEND Family Medicine
PROC: 3E0234Z Introduction of Serum, Toxoid and Vaccine into Muscle, Percutaneous Approach (ICD-10-PCS; principal; 2017-02-25)
DX: J44.1 Chronic obstructive pulmonary disease with (acute) exacerbation (principal); J96.20 Acute and chronic respiratory failure, unspecified whether with hypoxia or hypercapnia; I10 Essential (primary) hypertension; E11.9 Type 2 diabetes mellitus without complications; K21.9 Gastro-esophageal reflux disease without esophagitis; F41.1 Generalized anxiety disorder; F20.9 Schizophrenia, unspecified; F17.210 Nicotine dependence, cigarettes, uncomplicated; Z23 Encounter for immunization; Z99.81 Dependence on supplemental oxygen; Z79.51 Long term (current) use of inhaled steroids; Z79.52 Long term (current) use of systemic steroids; Z79.899 Other long term (current) drug therapy
CPT/HCPCS: 36415; 36600; 71010; 71250; 78580; 80048; 80053; 82550; 82553; 82803; 82962; 83605; 83735; 84484; 85025; 85610; 87040; 90686; 93005; 93010; 94660; 96360; 99291; A9540; J0692; J1650; J2930; J3490; J7030; J7512; J7620; Q9969

== ENCOUNTER → 2017-04-15 | Outpatient (CLI) | payer MEDICAID ==
--- NOTE | 2017-04-15 13:36 | RADIOLOGY REPORT (SQ) ---
EXAM DESCRIPTION: ANKLE RIGHT COMPLETE COMPLETED DATE/TIME: 04/15/2017 1:30 pm REASON FOR STUDY: ACUTE RT ANKLE PAIN M25.571 PAIN IN RIGHT ANKLE AND JOINTS OF RIGHT FOOT COMPARISON: None. NUMBER OF VIEWS: Three views. TECHNIQUE: AP, lateral, and oblique radiographic images acquired of the right ankle. LIMITATIONS: None. FINDINGS: MINERALIZATION: Normal. BONES: No acute fracture or dislocation. No worrisome bone lesions. JOINTS: No effusions. SOFT TISSUES: No soft tissue swelling. No foreign body. OTHER: No other significant finding. IMPRESSION: NEGATIVE STUDY OF THE RIGHT ANKLE. NO RADIOGRAPHIC EVIDENCE OF ACUTE INJURY. TECHNICAL DOCUMENTATION: JOB ID: [id number] [employer]- All Rights Reserved
== END ==
LOC: OD 13:04
PROVIDERS: ATTEND Family Medicine
DX: M25.571 Pain in right ankle and joints of right foot (principal)

== ENCOUNTER 2017-05-22 17:33 | Emergency (ER) | payer MEDICAID ==
--- NOTE | 2017-05-22 18:08 | ER Document Report ---
ED Medical Screen (RME) - General Chief Complaint: Abdominal Pain Stated Complaint: ABDOMINAL PAIN Notes: 56 yo female with history of several bowel obstructions and colon surgery c/o severe mid abdominal pain and swelling worsening over past several days. + nausea, small amounts of diarrhea passing with gas. no fever pt in moderate distress TRAVEL OUTSIDE OF THE [place] IN LAST 30 DAYS: No - Related Data Allergies/Adverse Reactions: clarithromycin [From Biaxin] Allergy (Severe, Verified 05/22/17 17:35) TONGUE/THROAT SWELLING furosemide [From Lasix] Allergy (Intermediate, Verified 05/22/17 17:35) UNSURE venlafaxine HCl [From Effexor] Allergy (Intermediate, Verified 05/22/17 17:35) MUSCLE WEAKNESS adhesive tape Allergy (Verified 05/22/17 17:35) RASH divalproex sodium [From Depakote] Allergy (Verified 05/22/17 17:35) UNSURE Past Medical History - Social History Frequency of alcohol use: Occasional Drug Abuse: None - Past Medical History Cardiac Medical History: Reports: Hx Hypertension Denies: Hx Coronary Artery Disease, Hx Heart Attack Pulmonary Medical History: Reports: Hx Asthma, Hx Bronchitis, Hx COPD, Hx Pneumonia Denies: Hx Tuberculosis Neurological Medical History: Denies: Hx Cerebrovascular Accident, Hx Seizures Endocrine Medical History: Reports: Hx Diabetes Mellitus Type 2 Renal/ Medical History: Denies: Hx Peritoneal Dialysis GI Medical History: Reports: Hx Gastroesophageal Reflux Disease, Hx Hiatal Hernia, Hx Ulcer - UMBILICAL. Denies: Hx Hepatitis Musculoskeltal Medical History: Reports Hx Arthritis Psychiatric Medical History: Reports: Hx Depression, Hx Schizoaffective Disorder , Hx Schizophrenia Infectious Medical History: Denies: Hx Hepatitis Past Surgical History: Reports: Hx Abdominal Surgery, Hx Appendectomy, Hx Section, Hx Cholecystectomy, Hx Hysterectomy. Denies: Hx Mastectomy, Hx Open Heart Surgery, Hx Pacemaker - Immunizations Hx Diphtheria, Pertussis, Tetanus Vaccination: No History of Influenza Vaccine for 12/2016 - 05/2017 Season: No Physical Exam - Vital signs Vitals: Temp Pulse Resp BP Pulse Ox 98.8 F 101 H 22 H 135/83 H 91 L 05/22/17 17:47 05/22/17 17:47 05/22/17 17:47 05/22/17 17:47 05/22/17 17:47 Course - Vital Signs Vital signs: Temp Pulse Resp BP Pulse Ox 98.8 F 101 H 22 H 135/83 H 91 L 05/22/17 17:47 05/22/17 17:47 05/22/17 17:47 05/22/17 17:47 05/22/17 17:47
[2017-05-22 19:01] LABS: ABSOLUTE BASOPHILS # (AUTO) 0.1 10^3/uL (0.0-0.2); ABSOLUTE EOSINOPHILS # (AUTO) 0.1 10^3/uL (0.0-0.6); ABSOLUTE LYMPHOCYTES (AUTO) 1.4 10^3/uL (0.5-4.7); ABSOLUTE MONOCYTES (AUTO) 0.8 10^3/uL (0.1-1.4); ABSOLUTE NEUT (AUTO) 4.8 10^3/uL (1.7-8.2); BASOPHILS % (AUTO) 1.3 % (0-2); EOSINOPHILS % (AUTO) 1.2 % (0-6); HEMATOCRIT 36.8 % (36.0-47.0); LYMPHOCYTES % (AUTO) 19.6 % (13-45); MEAN CORPUSCULAR HEMOGLOBIN 27.5 pg (27.0-33.4); MEAN CORPUSCULAR HGB CONC 32.7 g/dL (32.0-36.0); MEAN CORPUSCULAR VOLUME 84 fl (80-97); PLATELET COUNT 313 10^3/uL (150-450); RED BLOOD COUNT 4.38 10^6/uL (3.72-5.28); RED CELL DISTRIBUTION WIDTH 16.3 % (11.5-14.0); SEGMENTED NEUTROPHILS % (AUTO) 66.9 % (42-78); TOTAL CELLS COUNTED % (AUTO) 100 %; WHITE BLOOD COUNT 7.2 10^3/uL (4.0-10.5)
[2017-05-22 19:13] LABS: ALANINE AMINOTRANSFERASE 24 U/L (9-52); ALBUMIN 4.4 g/dL (3.5-5.0); ALKALINE PHOSPHATASE 76 U/L (38-126); ANION GAP 10 (5-19); ASPARTATE AMINO TRANSFERASE 18 U/L (14-36); BILIRUBIN,DIRECT 0.1 mg/dL (0.0-0.4); BILIRUBIN,TOTAL 0.2 mg/dL (0.2-1.3); BLOOD UREA NITROGEN 10 mg/dL (7-20); CALCIUM 9.7 mg/dL (8.4-10.2); CARBON DIOXIDE 33 mmol/L (22-30); CHLORIDE 99 mmol/L (98-107); GLUCOSE 105 mg/dL (75-110); SODIUM 141.5 mmol/L (137-145); TOTAL PROTEIN 6.5 g/dL (6.3-8.2)
--- NOTE | 2017-05-22 19:14 | RADIOLOGY REPORT (SQ) ---
EXAM DESCRIPTION: ABDOMEN 2 VIEWS COMPLETED DATE/TIME: 05/22/2017 6:59 pm REASON FOR STUDY: abdominal pain COMPARISON: 02/19/2015 NUMBER OF VIEWS: Two views. TECHNIQUE: Supine and erect/decubitus radiographic images of the abdomen acquired. LIMITATIONS: None. FINDINGS: FREE AIR: None. No abnormal gas collections. LUNG BASES: Clear. BOWEL GAS PATTERN: There appear to be mildly dilated small bowel loops with air fluid levels. Modera te colonic gas is also present. CALCIFICATIONS: No suspicious calcifications. SOFT TISSUES: No gross mass or suggestion of organomegaly. HARDWARE: Cholecystectomy clips. BONES: No acute fracture. No worrisome bone lesions. OTHER: No other significant finding. IMPRESSION: There appear to be mildly dilated small bowel loops with air fluid levels. Consider add itional evaluation if there is persistent clinical concern. TECHNICAL DOCUMENTATION: JOB ID: [id number] [employer]- All Rights Reserved
[2017-05-22 21:55] LABS: APPEARANCE,URINE CLEAR; BILIRUBIN,URINE NEGATIVE (NEGATIVE); COLOR,URINE YELLOW; GLUCOSE, URINE NEGATIVE (NEGATIVE); KETONES,URINE NEGATIVE (NEGATIVE); LEUKOCYTE ESTERASE,URINE NEGATIVE (NEGATIVE); NITRITE,URINE NEGATIVE (NEGATIVE); PROTEIN,URINE NEGATIVE (NEGATIVE); URINE SPECIFIC GRAVITY 1.019; UROBILINOGEN,URINE NEGATIVE mg/dL (<2.0)
--- NOTE | 2017-05-22 22:10 | ER Document Report ---
ED GI/ - General Information source: Patient TRAVEL OUTSIDE OF THE [place] IN LAST 30 DAYS: No <JIMENA BATISTA - Last Filed: 05/23/17 03:36> <SONNYROLANDO - Last Filed: 05/23/17 03:48> - General Chief Complaint: Abdominal Pain Stated Complaint: ABDOMINAL PAIN Time Seen by Provider: 05/22/17 21:40 Notes: Patient is a 56-year-old female with a history of several bowel obstructions presents to the emergency department complaining of severe epigastric abdominal pain, nausea and swelling. Patient states that the symptoms are onset 1 week ago but have worsened over the past couple of days. Patient states that she has taken an [id number] Gas-X which has been aiding her gas. Patient also states that she has had small amounts of diarrhea. Patient denies vomiting. (JIMENA BATISTA) - Related Data Allergies/Adverse Reactions: clarithromycin [From Biaxin] Allergy (Severe, Verified 05/22/17 17:35) TONGUE/THROAT SWELLING furosemide [From Lasix] Allergy (Intermediate, Verified 05/22/17 17:35) UNSURE venlafaxine HCl [From Effexor] Allergy (Intermediate, Verified 05/22/17 17:35) MUSCLE WEAKNESS adhesive tape Allergy (Verified 05/22/17 17:35) RASH divalproex sodium [From Depakote] Allergy (Verified 05/22/17 17:35) UNSURE Past Medical History - General Information source: Patient - Social History Smoking Status: Former Smoker Frequency of alcohol use: Occasional Drug Abuse: None Family History: CAD, COPD, Hypertension, Malignancy Patient has suicidal ideation: No Patient has homicidal ideation: No - Past Medical History Cardiac Medical History: Reports: Hx Hypertension Pulmonary Medical History: Reports: Hx Asthma, Hx Bronchitis, Hx COPD, Hx Pneumonia Endocrine Medical History: Reports: Hx Diabetes Mellitus Type 2 GI Medical History: Reports: Hx Gastroesophageal Reflux Disease, Hx Hiatal Hernia, Hx Ulcer - UMBILICAL Musculoskeltal Medical History: Reports Hx Arthritis Psychiatric Medical History: Reports: Hx Depression, Hx Schizoaffective Disorder , Hx Schizophrenia Past Surgical History: Reports: Hx Abdominal Surgery, Hx Appendectomy, Hx Section, Hx Cholecystectomy, Hx Hysterectomy - Immunizations Hx Diphtheria, Pertussis, Tetanus Vaccination: No Hx Pneumococcal Vaccination: 01/30/13 <JIMENA BATISTA - Last Filed: 05/23/17 03:36> Review of Systems - Review of Systems Constitutional: No symptoms reported EENT: No symptoms reported Cardiovascular: No symptoms reported Respiratory: No symptoms reported Gastrointestinal: See HPI, Abdomen distended, Abdominal pain, Constipation Genitourinary: No symptoms reported Female Genitourinary: No symptoms reported Musculoskeletal: No symptoms reported Skin: No symptoms reported Hematologic/Lymphatic: No symptoms reported Neurological/Psychological: No symptoms reported -: Yes All other systems reviewed and negative <JIMENA BATISTA - Last Filed: 05/23/17 03:36> Physical Exam <JIMENA BATISTA - Last Filed: 05/23/17 03:36> <ROLANDO DENNIS - Last Filed: 05/23/17 03:48> - Vital signs Vitals: Temp Pulse Resp BP Pulse Ox 98.8 F 101 H 22 H 135/83 H 91 L 05/22/17 17:47 05/22/17 17:47 05/22/17 17:47 05/22/17 17:47 05/22/17 17:47 - Notes Notes: GENERAL: Alert, interacts well. No acute distress. HEAD: Normocephalic, atraumatic. EYES: Pupils equal, round, and reactive to light. Extraocular movements intact. ENT: Oral mucosa moist, tongue midline. NECK: Full range of motion. Supple. Trachea midline. LUNGS: Clear to auscultation bilaterally, no wheezes, rales, or rhonchi. No respiratory distress. HEART: Regular rate and rhythm. No murmurs, gallops, or rubs. ABDOMEN: Soft, tight, diffusely tender to palpation. Bowel sounds present in all 4 quadrants. EXTREMITIES: Moves all 4 extremities spontaneously. NEUROLOGICAL: Alert and oriented x3. Normal speech. PSYCH: Normal affect, normal mood. SKIN: Warm, dry, normal turgor. No rashes or lesions noted. (JIMENA BATISTA) Course - Laboratory Result Diagrams: 05/22/17 18:45 05/22/17 18:45 <JIMENA BATISTA - Last Filed: 05/23/17 03:36> - Laboratory Result Diagrams: 05/22/17 18:45 05/22/17 18:45 <ROLANDO DENNIS - Last Filed: 05/23/17 03:48> - Re-evaluation Re-evalutation: 05/23/17 01:56 Dr. Tineo consulted for concern on KUB findings. CT of abdomen pelvis with oral and IV contrast performed which revealed no acute findings and no bowel obstruction. Discussed findings with patient. Advised clear diet for several days as well as fiber supplementation per the surgeon and will also provide Bentyl to see if this helps with her discomfort. Return precautions provided. ( ROLANDO DENNIS) - Vital Signs Vital signs: Temp Pulse Resp BP Pulse Ox 98.1 F 83 18 141/81 H 92 05/23/17 01:50 05/23/17 01:50 05/23/17 01:50 05/23/17 01:50 05/23/17 01:50 - Laboratory Laboratory results interpreted by me: 05/22/17 05/22/17 05/22/17 18:45 18:45 21:10 RDW 16.3 H Carbon Dioxide 33 H Urine Blood MODERATE H Discharge <JIMENA BATISTA - Last Filed: 05/23/17 03:36> <ROLANDO DENNIS - Last Filed: 05/23/17 03:48> - Discharge Clinical Impression: Abdominal pain Qualifiers: Abdominal location: unspecified location Qualified Code(s): R10.9 - Unspecified abdominal pain Condition: Stable Disposition: HOME, SELF-CARE Additional Instructions: Please take medications as prescribed. Please maintain clear diet with soups for the next several days to see if this helps with her symptoms and use fiber supplementation and see if this helps with your symptoms. Return to emergency department for any concerns of development of fever or worsening symptoms. Prescriptions: Dicyclomine HCl [Bentyl 20 mg Tablet] 20 mg PO ASDIR PRN #30 tablet PRN Reason: Referrals: SILVINA KABA MD [Primary Care Provider] - Follow up as needed Scribe Attestation: 05/23/17 03:48 I personally performed the services described documentation, reviewed and edited the documentation which was dictated to describe my presence, and it accurately records my words and actions. (ROLANDO DENNIS) Scribe Documentation - Scribe Written by Scribe:: Sukhwinder Miranda, 05/23/2017 03:39 acting as scribe for :: Sonny <JIMENA BATISTA - Last Filed: 05/23/17 03:36>
[2017-05-22] MEDS ORDERED: FENTANYL CITRATE INJ/PF 100 MCG/2 ML AMPUL IM ONE (23:29)
--- NOTE | 2017-05-23 00:16 | PDOC H&P ---
History of Present Illness Admission Date/PCP: SILVINA KABA MD History of Present Illness: BRYON BONILLA is a 56 year old female with a hx of cholecystectomym appendectomy and hysterectomy 20 yrs. ago, after those surgeries she developed a ventral hernia with bowel obstruction and underwent surgery 15 yrs. ago. Afterward, she has been in good conditins until 2 years ago whrn she developed a partial small bowel obstruction treated conservatively. She presents to [facility] with a c/o increased abdominal discomfort, flatus, little defecation (last good bowel movement occurred 1 week [address] scan A/p shows mildly dilated loops of small bowel. She is comfortable, passing flatus and denies abdominal pain. Past Medical History Cardiac Medical History: Reports: Hypertension Denies: Coronary Artery Disease, Myocardial Infarction Pulmonary Medical History: Reports: Asthma, Bronchitis, Chronic Obstructive Pulmonary Disease (COPD), Pneumonia Denies: Tuberculosis Neurological Medical History: Denies: Seizures Endocrine Medical History: Reports: Diabetes Mellitus Type 2 GI Medical History: Reports: Gastroesophageal Reflux Disease, Hiatal Hernia Denies: Hepatitis Musculoskeltal Medical History: Reports: Arthritis Psychiatric Medical History: Reports: Depression, Schizoaffective Disorder Hematology: Denies: Anemia, Sickle Cell Disease Past Surgical History Past Surgical History: Reports: Appendectomy, Section, Cholecystectomy , Hysterectomy, Other - Nate fundoplication, ventral herniorraphy 15 yrs ago Denies: Amputation, Mastectomy, Pacemaker Social History Smoking Status: Former Smoker Frequency of Alcohol Use: None Hx Recreational Drug Use: No Drugs: None Hx Prescription Drug Abuse: No Family History Family History: CAD, COPD, Hypertension, Malignancy Parental Family History Reviewed: Yes Children Family History Reviewed: Yes Sibling(s) Family History Reviewed.: Yes Medication/Allergy Home Medications: Acetaminophen [Tylenol 325 mg Tablet] 650 mg PO Q4HP PRN 02/19/17 Amlodipine Besylate [Norvasc 2.5 mg Tablet] 2.5 mg PO DAILY 02/19/17 Calcium Carbonate/Vitamin D3 [Calcium 600-Vit D3 2,500 Sftgl] 1 each PO DAILY Fluticasone Propionate [Flovent Diskus] 50 mcg IH DAILY 02/19/17 Fluticasone/Salmeterol [Advair 500-50 Diskus 28 Dose] 1 dose IH DAILY 02/19/17 Gabapentin [Neurontin 100 mg Capsule] 100 mg PO Q8 02/19/17 Hydroxyzine Pamoate [Vistaril 25 mg Capsule] 25 mg PO DAILY 02/19/17 Levothyroxine Sodium [Synthroid 0.025 mg Tablet] 25 mcg PO QAM 02/19/17 Lorazepam [Ativan] 1 mg PO Q8 02/19/17 Mirtazapine 30 mg PO QHS 02/19/17 Montelukast Sodium [Singulair 10 mg Tablet] 10 mg PO QHS 02/19/17 Multivit-Min/Iron/Folic/Lutein [Centrum Silver Women Tablet] 1 each PO DAILY Omeprazole 40 mg PO DAILY 02/19/17 Prednisone [Deltasone 10 mg Tablet] 10 mg PO DAILY 02/19/17 Quetiapine Fumarate [Seroquel] 300 mg PO QHS 02/19/17 Roflumilast [Daliresp 500 mcg Tablet] 500 mcg PO DAILY 02/19/17 Tamsulosin HCl [Flomax] 0.4 mg PO DAILY 02/19/17 Tiotropium [place] [Spiriva] 18 mcg IH DAILY 02/19/17 Trazodone HCl [Desyrel 50 mg Tablet] 75 mg PO QHS 02/19/17 Levofloxacin [Levaquin 500 mg Tablet] 500 mg PO DAILY #7 tablet 02/25/17 Prednisone [Deltasone 20 mg Tablet] 10 mg PO DAILY #30 tablet 02/25/17 Allergies/Adverse Reactions: clarithromycin [From Biaxin] Allergy (Severe, Verified 05/22/17 17:35) TONGUE/THROAT SWELLING furosemide [From Lasix] Allergy (Intermediate, Verified 05/22/17 17:35) UNSURE venlafaxine HCl [From Effexor] Allergy (Intermediate, Verified 05/22/17 17:35) MUSCLE WEAKNESS adhesive tape Allergy (Verified 05/22/17 17:35) RASH divalproex sodium [From Depakote] Allergy (Verified 05/22/17 17:35) UNSURE Physical Exam Vital Signs: Temp Pulse Resp BP Pulse Ox 98.8 F 101 H 22 H 135/83 H 91 L 05/22/17 17:47 05/22/17 17:47 05/22/17 17:47 05/22/17 17:47 05/22/17 17:47 Intake & Output 02/05/22/17 05/23/17 06:59 06:59 06:59 Weight 62.1 kg General appearance: PRESENT: no acute distress Head exam: PRESENT: atraumatic Mouth exam: PRESENT: tongue midline Neck exam: PRESENT: full ROM Respiratory exam: PRESENT: clear to auscultation wilfredo Cardiovascular exam: PRESENT: RRR GI/Abdominal exam: PRESENT: distended, normal bowel sounds, soft Extremities exam: PRESENT: other - devreased lower extremity motion Results Laboratory Results: 05/22/17 18:45 05/22/17 18:45 05/22/17 05/22/17 05/22/17 18:45 18:45 21:10 WBC 7.2 RBC 4.38 Hgb 12.0 Hct 36.8 MCV 84 MCH 27.5 MCHC 32.7 RDW 16.3 H Plt Count 313 Seg Neutrophils % 66.9 Lymphocytes % 19.6 Monocytes % 11.0 Eosinophils % 1.2 Basophils % 1.3 Absolute Neutrophils 4.8 Absolute Lymphocytes 1.4 Absolute Monocytes 0.8 Absolute Eosinophils 0.1 Absolute Basophils 0.1 Sodium 141.5 Potassium 4.0 Chloride 99 Carbon Dioxide 33 H Anion Gap 10 BUN 10 Creatinine 0.68 Est GFR ( Amer) > 60 Est GFR (Non-Af Amer) > 60 Glucose 105 Calcium 9.7 Total Bilirubin 0.2 AST 18 ALT 24 Alkaline Phosphatase 76 Total Protein 6.5 Albumin 4.4 Lipase 121.0 Urine Color YELLOW Urine Appearance CLEAR Urine pH 5.0 Ur Specific [place] 1.019 Urine Protein NEGATIVE Urine Glucose (UA) NEGATIVE Urine Ketones NEGATIVE Urine Blood MODERATE H Urine Nitrite NEGATIVE Ur Leukocyte Esterase NEGATIVE Urine WBC (Auto) 1 Urine RBC (Auto) 5 Impressions: Abdomen X-Ray 05/22/17 18:09 IMPRESSION: There appear to be mildly dilated small bowel loops with air fluid levels. Consider additional evaluation if there is persistent clinical concern. Assessment & Plan - Diagnosis (1) Partial small bowel obstruction Is this a current diagnosis for this admission?: Yes - Plan Summary Plan Summary: A/ 2 wk hx of abdominal discomfort in patient with previous SBO and ventral herniorraphy 15 yrs ago Patient is currently passing gas and small amount of stools Abdominal Xray shows mildly distended loops of small bowel; My assessment is that this patient presents with partial small bowel obstruction P/ obtain CT scan A/P with oral contrast However, I do no believe this patient will require an operation at this time, unless the CT scan findings are significant for a complete bowel obstruction. An operation on this patient will not resolve her multifactorial bowel dysfunction secondary to wheelchair matthew status, age, poor motility, previous surgeries, COPD with chronic cough, and inability to vomit due to her Nate fundoplication.
--- NOTE | 2017-05-23 01:28 | RADIOLOGY REPORT (SQ) ---
EXAM DESCRIPTION: CT ABDOMEN AND PELVIS WITH CONTRAST CLINICAL HISTORY: Diffuse abdominal pain. COMPARISON: 02/16/2015 TECHNIQUE: CT of the abdomen and pelvis are performed during IV bolus administration of 67 mL of Isovue-370. DLP: 624.24 mGycm FINDINGS: Abdomen: The liver has normal size and density. No intrahepatic mass or biliary dilatation. Prior cholecystectomy. The spleen, pancreas, and adrenal glands are unremarkable. Moderate right and mild left hydronephrosis are stable in appearance without obstructing ureteral calculi. Aortoiliac atherosclerosis. IVC is unremarkable. The portal vein patent. The proximal visceral and renal arteries are patent. No free intraperitoneal air. Small hiatal hernia. Pelvis: Prior hysterectomy. Urinary bladder is unremarkable. No free pelvic fluid or lymphadenopathy. No dilated loops of large or small bowel. The appendix is not definitely visualized however no right lower quadrant inflammatory change. The visualized lung bases are clear. No destructive bone lesions identified. Degenerative change of the spine. IMPRESSION: 1. No acute inflammatory or obstructive abnormality identified. 2. Moderate right and mild left hydronephrosis is stable from 2014 and may represent chronic UPJ obstruction. This exam was performed according to our departmental dose-optimization program, which includes automated exposure control, adjustment of the mA and/or kV according to patient size and/or use of iterative reconstruction technique.
[2017-05-23 01:56] VITALS: BP 141/81
== END 2017-05-23 02:08 | disposition home or self-care (01) ==
LOC: ER 17:33
DX: K59.00 Constipation, unspecified (principal); R10.13 Epigastric pain; R10.817 Generalized abdominal tenderness; R11.0 Nausea; R14.3 Flatulence; R19.7 Diarrhea, unspecified; I10 Essential (primary) hypertension; J44.9 Chronic obstructive pulmonary disease, unspecified; Z87.19 Personal history of other diseases of the digestive system; Z88.1 Allergy status to other antibiotic agents; Z88.8 Allergy status to other drugs, medicaments and biological substances; Z91.048 Other nonmedicinal substance allergy status; Z87.891 Personal history of nicotine dependence; Z90.49 Acquired absence of other specified parts of digestive tract
CPT/HCPCS: 99285; 96372; 36415; 83690; 85025; 80053; 81001; 74019; 74177; J3010

== ENCOUNTER 2017-06-04 14:54 | Inpatient (IN) | payer MEDICAID ==
[2017-06-04] MEDS ORDERED: RINGERS SOLUTION,LACTATED 1,000 ML IV ONE (15:18)
--- NOTE | 2017-06-04 15:20 | ER Document Report ---
ED General - General Stated Complaint: STOMACH PAIN Time Seen by Provider: 06/04/17 15:02 Mode of Arrival: Stretcher Information source: Patient Notes: This is a 56-year-old female with end-stage COPD, nonambulatory (chronic back pain with scoliosis), history of SBO with celiotomy, presents to the emergency room with abdominal pain. Patient states she was in the emergency room with similar pain approximately 1 week ago. TRAVEL OUTSIDE OF THE [place] IN LAST 30 DAYS: No - HPI Onset: Last week Onset/Duration: Gradual Quality of pain: Dull Severity: Moderate Pain Level: 2 Associated symptoms: denies: Chills, Fever, Shortness of breath Exacerbated by: Denies Relieved by: Denies Similar symptoms previously: Yes Recently seen / treated by doctor: Yes - Related Data Allergies/Adverse Reactions: clarithromycin [From Biaxin] Allergy (Severe, Verified 05/22/17 17:35) TONGUE/THROAT SWELLING furosemide [From Lasix] Allergy (Intermediate, Verified 05/22/17 17:35) UNSURE venlafaxine HCl [From Effexor] Allergy (Intermediate, Verified 05/22/17 17:35) MUSCLE WEAKNESS adhesive tape Allergy (Verified 05/22/17 17:35) RASH divalproex sodium [From Depakote] Allergy (Verified 05/22/17 17:35) UNSURE Past Medical History - General Information source: Patient - Social History Smoking Status: Former Smoker Cigarette use (# per day): No Chew tobacco use (# tins/day): No Frequency of alcohol use: None Drug Abuse: None Lives with: Family Family History: CAD, COPD, Hypertension, Malignancy - Past Medical History Cardiac Medical History: Reports: Hx Hypertension Denies: Hx Coronary Artery Disease, Hx Heart Attack Pulmonary Medical History: Reports: Hx Asthma, Hx Bronchitis, Hx COPD, Hx Pneumonia Denies: Hx Tuberculosis Neurological Medical History: Denies: Hx Cerebrovascular Accident, Hx Seizures Endocrine Medical History: Reports: Hx Diabetes Mellitus Type 2 Renal/ Medical History: Denies: Hx Peritoneal Dialysis GI Medical History: Reports: Hx Gastroesophageal Reflux Disease, Hx Hiatal Hernia, Hx Ulcer - UMBILICAL. Denies: Hx Hepatitis Musculoskeltal Medical History: Reports Hx Arthritis Psychiatric Medical History: Reports: Hx Depression, Hx Schizoaffective Disorder , Hx Schizophrenia Infectious Medical History: Denies: Hx Hepatitis Past Surgical History: Reports: Hx Abdominal Surgery, Hx Appendectomy, Hx Section, Hx Cholecystectomy, Hx Hysterectomy, Other - Nate fundoplication, ventral herniorraphy 15 yrs ago. Denies: Hx Mastectomy, Hx Open Heart Surgery, Hx Pacemaker - Immunizations Hx Diphtheria, Pertussis, Tetanus Vaccination: No Hx Pneumococcal Vaccination: 01/30/13 Review of Systems - Review of Systems Constitutional: denies: Chills, Fever EENT: No symptoms reported Cardiovascular: No symptoms reported Respiratory: No symptoms reported Gastrointestinal: See HPI Genitourinary: No symptoms reported Female Genitourinary: No symptoms reported Musculoskeletal: No symptoms reported Skin: No symptoms reported Hematologic/Lymphatic: No symptoms reported Neurological/Psychological: No symptoms reported Physical Exam - Vital signs Vitals: Temp Pulse Resp BP Pulse Ox 99.4 F 99 20 148/89 H 92 06/04/17 14:59 06/04/17 14:59 06/04/17 14:59 06/04/17 14:59 06/04/17 14:59 Notes: Physical exam: GENERAL: 56-year-old female, alert and oriented 3, no acute distress HEAD: Atraumatic, normocephalic. EYES: Pupils equal round and reactive to light, extraocular movements intact, sclera anicteric, conjunctiva are normal. ENT: TMs normal, nares patent, oropharynx clear without exudates. Moist mucous membranes. NECK: Normal range of motion, supple without obvious mass or JVD. LUNGS: Scattered wheezing bilaterally HEART: Regular rate and rhythm without murmurs, rubs or gallops. ABDOMEN: Soft, high-pitched bowel sounds. Mildly distended, she does have tenderness without rebound. Rectal: Black stool, sent for study EXTREMITIES: Normal range of motion, no pitting or edema. No clubbing or cyanosis. NEUROLOGICAL: Cranial nerves II through XII grossly intact. Normal speech, moving all extremities. PSYCH: Normal mood, normal affect. SKIN: Warm, Dry, normal turgor, no rashes or lesions noted. Course - Vital Signs Vital signs: Temp Pulse Resp BP Pulse Ox 97.6 F 77 20 115/64 88 L 06/04/17 23:48 06/04/17 23:48 06/04/17 23:48 06/04/17 23:48 06/04/17 23:48 - Laboratory Result Diagrams: 06/04/17 15:50 06/04/17 15:50 Laboratory results interpreted by me: 06/04/17 06/04/17 06/04/17 15:50 15:50 18:45 Hgb 11.3 L Hct 35.3 L RDW 16.4 H Seg Neutrophils % 79.1 H Lymphocytes % 11.3 L Carbon Dioxide 34 H Creatinine 0.45 L Urine Blood SMALL H - Diagnostic Test Radiology reviewed: Image reviewed, Reports reviewed - Chest x-ray shows no infiltrates. CT of the abdomen shows dilated loops of bowel. No obvious SBO. Discharge - Discharge Clinical Impression: Ileus Condition: Stable Disposition: ADMITTED INPATIENT Admitting Provider: Xavier Unit Admitted: [facility]
[2017-06-04] MEDS ORDERED: HYDROMORPHONE HCL INJ/PF 2 MG/ML AMPULE IV ONE ×4 (15:41→21:13)
[2017-06-04] MEDS ORDERED: FAMOTIDINE INJ/PF 20 MG/2 ML SDV IV ONE (15:42)
--- NOTE | 2017-06-04 16:15 | RADIOLOGY REPORT (SQ) ---
EXAM DESCRIPTION: CHEST SINGLE VIEW COMPLETED DATE/TIME: 06/04/2017 4:01 pm REASON FOR STUDY: abdominal pain COMPARISON: 02/19/2017 EXAM PARAMETERS: NUMBER OF VIEWS: One view. TECHNIQUE: Single frontal radiographic view of the chest acquired. RADIATION DOSE: NA LIMITATIONS: None. FINDINGS: LUNGS AND PLEURA: The lungs are hyperexpanded. There are no pulmonary infiltrates or pleu ral effusions. MEDIASTINUM AND HILAR STRUCTURES: No masses. Contour normal. HEART AND VASCULAR STRUCTURES: Heart normal in size. Normal vasculature. BONES: No acute findings. HARDWARE: None in the chest. OTHER: No other significant finding. IMPRESSION: There appear to be mild chronic lung changes with no acute cardiopulmonary disease. TECHNICAL DOCUMENTATION: JOB ID: [id number] [employer]- All Rights Reserved Reading location - IP/workstation name: [email or web address]
[2017-06-04 16:24] LABS: ABSOLUTE BASOPHILS # (AUTO) 0.1 10^3/uL (0.0-0.2); ABSOLUTE LYMPHOCYTES (AUTO) 0.9 10^3/uL (0.5-4.7); ABSOLUTE MONOCYTES (AUTO) 0.7 10^3/uL (0.1-1.4); ABSOLUTE NEUT (AUTO) 6.1 10^3/uL (1.7-8.2); BASOPHILS % (AUTO) 0.8 % (0-2); EOSINOPHILS % (AUTO) 0.4 % (0-6); HEMATOCRIT 35.3 % (36.0-47.0); HEMOGLOBIN 11.3 g/dL (12.0-15.5); INTERNATIONAL RATION (INR) 0.84; LYMPHOCYTES % (AUTO) 11.3 % (13-45); MEAN CORPUSCULAR HEMOGLOBIN 27.1 pg (27.0-33.4); MEAN CORPUSCULAR HGB CONC 32.1 g/dL (32.0-36.0); MEAN CORPUSCULAR VOLUME 85 fl (80-97); MONOCYTES % (AUTO) 8.4 % (3-13); PLATELET COUNT 306 10^3/uL (150-450); PROTHROMBIN TIME 12.2 SEC (11.4-15.4); RED BLOOD COUNT 4.18 10^6/uL (3.72-5.28); RED CELL DISTRIBUTION WIDTH 16.4 % (11.5-14.0); SEGMENTED NEUTROPHILS % (AUTO) 79.1 % (42-78); TOTAL CELLS COUNTED % (AUTO) 100 %; WHITE BLOOD COUNT 7.7 10^3/uL (4.0-10.5)
[2017-06-04 16:53] LABS: ALBUMIN 3.8 g/dL (3.5-5.0); ANION GAP 5 (5-19); BILIRUBIN,DIRECT 0.4 mg/dL (0.0-0.4); BILIRUBIN,TOTAL 0.4 mg/dL (0.2-1.3); CALCIUM 9.2 mg/dL (8.4-10.2); CARBON DIOXIDE 34 mmol/L (22-30); CHLORIDE 102 mmol/L (98-107); GLUCOSE 86 mg/dL (75-110); SODIUM 140.7 mmol/L (137-145); TOTAL PROTEIN 6.5 g/dL (6.3-8.2)
[2017-06-04 17:02] LABS: ASPARTATE AMINO TRANSFERASE 31 U/L (14-36); BLOOD UREA NITROGEN 7 mg/dL (7-20); POTASSIUM 3.9 mmol/L (3.6-5.0)
[2017-06-04 17:03] LABS: ALANINE AMINOTRANSFERASE 15 U/L (9-52); ALKALINE PHOSPHATASE 61 U/L (38-126)
[2017-06-04] MEDS ORDERED: ONDANSETRON HCL INJ/PF 4 MG/2 ML SDV IV ONE (17:39)
[2017-06-04 18:57] LABS: APPEARANCE,URINE CLEAR; BILIRUBIN,URINE NEGATIVE (NEGATIVE); COLOR,URINE STRAW; GLUCOSE, URINE NEGATIVE (NEGATIVE); KETONES,URINE NEGATIVE (NEGATIVE); LEUKOCYTE ESTERASE,URINE NEGATIVE (NEGATIVE); NITRITE,URINE NEGATIVE (NEGATIVE); PROTEIN,URINE NEGATIVE (NEGATIVE); URINE SPECIFIC GRAVITY 1.003; UROBILINOGEN,URINE NEGATIVE mg/dL (<2.0)
[2017-06-04] MEDS ORDERED: DIPHENHYDRAMINE HCL 50 MG/ML VIAL IV ONE (19:26)
[2017-06-04] MEDS ORDERED: METOCLOPRAMIDE HCL INJ/PF 10 MG/2 ML SDV IV ONE (19:26)
--- NOTE | 2017-06-04 20:36 | RADIOLOGY REPORT (SQ) ---
EXAM DESCRIPTION: CT ABD/PELVIS WITH IV ORAL COMPLETED DATE/TIME: 06/04/2017 7:58 pm REASON FOR STUDY: abd pain COMPARISON: 05/23/2017 and 02/16/2015. TECHNIQUE: CT scan of the abdomen and pelvis performed using helical scanning technique with dynamic intravenous contrast injection. No oral contrast. Images reviewed with lung, soft tissue, and bone windows. Reconstructed coronal and sagittal MPR images reviewed. Delayed images for evaluation of the urinary system also acquired. All images stored on PACS. All CT scanners at this facility use dose modulation, iterative reconstruction, and/or weight based d osing when appropriate to reduce radiation dose to as low as reasonably achievable (ALARA). [facility]: Dose Right [facility]: CareDose [facility]: Dose Right [facility]: Teradose 4D [facility]: SPIRIT Navigation CONTRAST TYPE AND DOSE: contrast/concentration: Isovue 370.00 mg/ml; Total Contrast Delivered: 71.0 ml; Total Saline Delivered: 36.0 ml RENAL FUNCTION: BUN 7 creatinine 0.45. RADIATION DOSE: CT Rad equipment meets quality standard of care and radiation dose reduction techniq ues were employed. CTDIvol: 9.0 - 12.7 mGy. DLP: 1006 mGy-cm.. LIMITATIONS: None. FINDINGS: LOWER CHEST: No significant findings. No nodules or infiltrates. LIVER: Normal size. No masses. No dilated ducts. SPLEEN: Normal size. No focal lesions. PANCREAS: No masses. No significant calcifications. No adjacent inflammation or peripancreatic fluid collections. Pancreatic duct not dilated. GALLBLADDER: Surgically absent. ADRENAL GLANDS: No significant masses or asymmetry. RIGHT KIDNEY AND URETER: No solid masses. No significant calcifications. Prominent renal pelvis. No hydronephrosis or hydroureter. LEFT KIDNEY AND URETER: No solid masses. No significant calcifications. Prominent renal pelvis. No hydronephrosis or hydroureter. AORTA AND VESSELS: No aneurysm. No dissection. Renal arteries, SMA, celiac without stenosis. RETROPERITONEUM: No retroperitoneal adenopathy, hemorrhage or masses. BOWEL AND PERITONEAL CAVITY: No masses or inflammatory changes. No free fluid or peritoneal masses. APPENDIX: Surgically absent. PELVIS: No mass. No free fluid. Normal bladder. ABDOMINAL WALL: No masses. No hernias. BONES: No significant or acute findings. OTHER: No other significant finding. IMPRESSION: 1. THERE IS PROMINENCE OF THE RENAL PELVIS OF BOTH KIDNEYS WHICH IS A CHRONIC FINDING. PROMINENCE OF THE RIGHT RENAL PELVIS IS IMPROVED COMPARED TO THE PRIOR STUDY IN JANUARY 2015. THIS MAY BE AN EXT RARENAL PELVIS OR MILD URETEROPELVIC JUNCTION OBSTRUCTION. 2. NO OTHER SIGNIFICANT OR ACUTE FINDING IN THE ABDOMEN OR PELVIS ON CT SCAN WITH IV CONTRAST. TECHNICAL DOCUMENTATION: JOB ID: [id number] Quality ID # [id number]: Final reports with documentation of one or more dose reduction techniques (e.g., Au tomated exposure control, adjustment of the mA and/or kV according to patient size, use of iterative reconstruction technique) 2010 [employer]- All Rights Reserved Reading location - IP/workstation name: [email or web address]
[2017-06-04] MEDS ORDERED: LIDOCAINE 1% INJ-PF (10 MG/ML) 30 ML SDV ONE (21:23)
--- NOTE | 2017-06-04 21:25 | EKG REPORT ---
SEVERITY:- BORDERLINE ECG - SINUS RHYTHM BORDERLINE T ABNORMALITIES, ANT-LAT LEADS : Confirmed by: Kobe Pizarro 04-Jun-2017 21:25:10
[2017-06-04] MEDS ORDERED: NITROGLYCERIN 0.4 MG/TAB 25 TAB/BOTTLE SL PRN (22:06)
[2017-06-04] MEDS ORDERED: FUROSEMIDE 20 MG TABLET PO SCH (22:15)
[2017-06-04] MEDS: FAMOTIDINE INJ/PF 20 MG/2 ML SDV IV SCH (22:38)
[2017-06-04] MEDS: HYDROMORPHONE HCL INJ/PF 2 MG/ML AMPULE IV PRN (22:39)
--- NOTE | 2017-06-04 23:09 | PDOC CONSULTATION ---
Consultation Consult Date: 06/04/17 Consult reason:: abdominal pains History of Present Illness Admission Date/PCP: 06/04/17 20:58 SILVINA KABA MD History of Present Illness: BRYON BONILLA is a 56 year old female with history of multiple abdominal operations and on a lot of medications for schizophrenia, c/o abdominal pains past few days with some nausea. Had Nate fundoplication for reflux in [place] about 15 years ago. This was followed by ventral hernia repair. She had a hysterectomy and apparently had exploratoey laparotomy for adhesions after. She was apparently in the ED past week for same complaints and was sent home. Claims her symptoms are worse this time. Claims has difficulty burping after her Nate surgery. Had CT scan today with IV contrast and appears to have dilated stomach but no other intra-abdominal findings may be some ileus. Past Medical History Cardiac Medical History: Reports: Hypertension Denies: Coronary Artery Disease, Myocardial Infarction Pulmonary Medical History: Reports: Asthma, Bronchitis, Chronic Obstructive Pulmonary Disease (COPD), Pneumonia Denies: Tuberculosis Neurological Medical History: Denies: Seizures Endocrine Medical History: Reports: Diabetes Mellitus Type 2 GI Medical History: Reports: Gastroesophageal Reflux Disease, Hiatal Hernia Denies: Hepatitis Musculoskeltal Medical History: Reports: Arthritis Psychiatric Medical History: Reports: Depression, Schizoaffective Disorder Hematology: Denies: Anemia, Sickle Cell Disease Past Surgical History Past Surgical History: Reports: Appendectomy, Section, Cholecystectomy , Hysterectomy, Other - Nate fundoplication, ventral herniorraphy 15 yrs ago Denies: Amputation, Mastectomy, Pacemaker Social History Smoking Status: Former Smoker - on home Oxygen for end stage COPD Frequency of Alcohol Use: None Hx Recreational Drug Use: No Drugs: None Hx Prescription Drug Abuse: No Family History Family History: CAD, COPD, Hypertension, Malignancy Parental Family History Reviewed: Yes Children Family History Reviewed: No Sibling(s) Family History Reviewed.: No Medication/Allergy Home Medications: Albuterol Sulfate [Proair HFA] 2 puff IH Q4 06/04/17 Clonidine HCl [Catapres 0.1 mg Tablet] 0.1 mg PO Q4 06/04/17 Cyclobenzaprine HCl [Flexeril 5 mg Tablet] 5 mg PO QHS 06/04/17 Dicyclomine HCl [Bentyl 20 mg Tablet] 20 mg PO TIDP PRN 06/04/17 Fluticasone/Vilanterol [Breo Ellipta 200-25 Mcg INH] 1 puff IH DAILY 06/04/17 Furosemide [Lasix 20 mg Tablet] 20 mg PO Q2D 06/04/17 Gabapentin [Neurontin 100 mg Capsule] 100 mg PO Q8 06/04/17 Hydroxyzine Pamoate [Vistaril 25 mg Capsule] 25 mg PO DAILYP PRN 06/04/17 Levothyroxine Sodium [Synthroid] 25 mcg PO Q6AM 06/04/17 Lorazepam [Ativan 1 mg Tablet] 1 mg PO QIDP PRN 06/04/17 Mirtazapine [Remeron 15 mg Tablet] 15 mg PO DAILY 06/04/17 Montelukast Sodium [Singulair 10 mg Tablet] 10 mg PO QPM 06/04/17 Nitroglycerin [Nitrostat] 0.3 mg SL Q5MP PRN 06/04/17 Omeprazole 40 mg PO DAILY 06/04/17 Ondansetron HCl [Zofran 4 mg Tablet] 4 mg PO Q6HP PRN 06/04/17 Prednisone [Deltasone 5 mg Tablet] 5 mg PO DAILY 06/04/17 Quetiapine Fumarate [Seroquel] 300 mg PO DAILY 06/04/17 Roflumilast [Daliresp 500 mcg Tablet] 500 mcg PO DAILY 06/04/17 Rosuvastatin Calcium [Crestor 10 mg Tablet] 10 mg PO QHS 06/04/17 Sertraline HCl [Zoloft 50 mg Tablet] 50 mg PO DAILY 06/04/17 Tiotropium [place] [Spiriva Respimat] 2 puff IH QAM 06/04/17 Zolpidem Tartrate [Ambien 5 mg Tablet] 5 mg PO QHS 06/04/17 Allergies/Adverse Reactions: clarithromycin [From Biaxin] Allergy (Severe, Verified 05/22/17 17:35) TONGUE/THROAT SWELLING furosemide [From Lasix] Allergy (Intermediate, Verified 05/22/17 17:35) UNSURE venlafaxine HCl [From Effexor] Allergy (Intermediate, Verified 05/22/17 17:35) MUSCLE WEAKNESS adhesive tape Allergy (Verified 05/22/17 17:35) RASH divalproex sodium [From Depakote] Allergy (Verified 05/22/17 17:35) UNSURE Review of Systems Constitutional: PRESENT: as per HPI Gastrointestinal: PRESENT: abdominal pain - mild diffuse tenderness, nausea Genitourinary: PRESENT: other - no dysuria Integumentary: PRESENT: other - no rash Neurological: PRESENT: other - bedridden due to backpains Psychiatric: PRESENT: anxiety, depression Hematologic/Lymphatic: PRESENT: other - no easy bruising Physical Exam Vital Signs: Temp Pulse Resp BP Pulse Ox 99.4 F 99 20 127/62 H 99 06/04/17 14:59 06/04/17 14:59 06/04/17 22:18 06/04/17 22:18 06/04/17 22:18 General appearance: PRESENT: mild distress Head exam: PRESENT: atraumatic, normocephalic Eye exam: PRESENT: conjunctiva pink Mouth exam: PRESENT: moist Neck exam: PRESENT: full ROM Respiratory exam: PRESENT: clear to auscultation wilfredo Cardiovascular exam: PRESENT: RRR Pulses: PRESENT: normal radial pulses Vascular exam: PRESENT: normal capillary refill GI/Abdominal exam: PRESENT: soft, tenderness - mild dffuse tenderness Rectal exam: PRESENT: deferred Extremities exam: PRESENT: other - bilateral foot drop Musculoskeletal exam: PRESENT: other - non-ambulatory due to back pains and foot drop Neurological exam: PRESENT: alert, oriented to person, oriented to place, oriented to time, oriented to situation Psychiatric exam: PRESENT: anxious Skin exam: PRESENT: normal color, warm Results Impressions: Abdomen/Pelvis CT 06/04/17 00:00 IMPRESSION: 1. THERE IS PROMINENCE OF THE RENAL PELVIS OF BOTH KIDNEYS WHICH IS A CHRONIC FINDING. PROMINENCE OF THE RIGHT RENAL PELVIS IS IMPROVED COMPARED TO THE PRIOR STUDY IN JANUARY 2015. THIS MAY BE AN EXTRARENAL PELVIS OR MILD URETEROPELVIC JUNCTION OBSTRUCTION. 2. NO OTHER SIGNIFICANT OR ACUTE FINDING IN THE ABDOMEN OR PELVIS ON CT SCAN WITH IV CONTRAST. Chest X-Ray 06/04/17 15:18 IMPRESSION: There appear to be mild chronic lung changes with no acute cardiopulmonary disease. Assessment & Plan - Diagnosis (1) Ileus Is this a current diagnosis for this admission?: Yes (2) COPD exacerbation Is this a current diagnosis for this admission?: Yes (3) Coronary artery disease Qualifiers: Coronary Disease-Associated Artery/Lesion type: [place] artery Associated angina: angina presence unspecified Is this a current diagnosis for this admission?: Yes (4) Diabetes Qualifiers: Diabetes mellitus type: type 2 Diabetes mellitus complication status: with unspecified complications Is this a current diagnosis for this admission?: Yes (5) Generalized anxiety disorder Is this a current diagnosis for this admission?: Yes - Time Time Spent: 30 to 50 Minutes - Plan Summary Plan Summary: OK to place OG tube. Patient has problems with her nares Make lytes are OK including Mg++ and Ca++ Will follow as needed
[2017-06-04] MEDS: NORMAL SALINE 1000 ML 1,000 ML IV PRN (23:50)
[2017-06-05] MEDS ORDERED: ALBUTEROL SULFATE HFA (90 MCG/PUFF) 8 GM MDI (1 MDI/ER DISP) IH SCH (02:00)
[2017-06-05] MEDS: LORAZEPAM 1 MG TABLET PO PRN ×2 (04:22→18:53)
[2017-06-05] MEDS: ONDANSETRON HCL INJ/PF 4 MG/2 ML SDV IV PRN ×3 (04:23→15:11)
[2017-06-05] MEDS: LEVOTHYROXINE SODIUM 0.025 MG TABLET PO SCH (05:03)
[2017-06-05] MEDS: GABAPENTIN 100 MG CAPSULE PO SCH ×3 (05:04→21:07)
[2017-06-05 05:32] LABS: ABSOLUTE LYMPHOCYTES (AUTO) 0.5 10^3/uL (0.5-4.7); ABSOLUTE MONOCYTES (AUTO) 0.3 10^3/uL (0.1-1.4); ABSOLUTE NEUT (AUTO) 7.2 10^3/uL (1.7-8.2); BASOPHILS % (AUTO) 0.6 % (0-2); EOSINOPHILS % (AUTO) 0.1 % (0-6); HEMOGLOBIN 10.9 g/dL (12.0-15.5); LYMPHOCYTES % (AUTO) 5.7 % (13-45); MEAN CORPUSCULAR HEMOGLOBIN 27.3 pg (27.0-33.4); MEAN CORPUSCULAR HGB CONC 32.1 g/dL (32.0-36.0); MEAN CORPUSCULAR VOLUME 85 fl (80-97); MONOCYTES % (AUTO) 4.1 % (3-13); PLATELET COUNT 272 10^3/uL (150-450); RED CELL DISTRIBUTION WIDTH 16.4 % (11.5-14.0); SEGMENTED NEUTROPHILS % (AUTO) 89.5 % (42-78); TOTAL CELLS COUNTED % (AUTO) 100 %; WHITE BLOOD COUNT 8.1 10^3/uL (4.0-10.5)
[2017-06-05 05:48] LABS: ALANINE AMINOTRANSFERASE 16 U/L (9-52); ALBUMIN 3.6 g/dL (3.5-5.0); ALKALINE PHOSPHATASE 58 U/L (38-126); ANION GAP 8 (5-19); ASPARTATE AMINO TRANSFERASE 20 U/L (14-36); BILIRUBIN,DIRECT 0.3 mg/dL (0.0-0.4); BILIRUBIN,TOTAL 0.3 mg/dL (0.2-1.3); BLOOD UREA NITROGEN 4 mg/dL (7-20); CALCIUM 8.5 mg/dL (8.4-10.2); CARBON DIOXIDE 34 mmol/L (22-30); CHLORIDE 96 mmol/L (98-107); GLUCOSE 94 mg/dL (75-110); POTASSIUM 3.4 mmol/L (3.6-5.0); SODIUM 137.9 mmol/L (137-145); TOTAL PROTEIN 6.1 g/dL (6.3-8.2)
[2017-06-05] MEDS ORDERED: CLONIDINE HCL 0.1 MG TABLET PO SCH (06:00)
[2017-06-05] MEDS: HYDROMORPHONE HCL INJ/PF 2 MG/ML AMPULE IV PRN ×2 (06:22→15:08)
[2017-06-05] MEDS: IPRATROPIUM/ALBUTEROL 0.5-2.5 MG/3 ML AMPUL NEB SCH ×3 (08:10→19:59)
[2017-06-05] MEDS ORDERED: GLUCAGON,HUMAN RECOMB 1 MG INJ IM PRN (08:17)
[2017-06-05] MEDS ORDERED: DEXTROSE 40% GEL 15 GM TUBE PO PRN ×2 (08:17)
[2017-06-05] MEDS ORDERED: DEXTROSE 50%-WATER 25 GM/50 ML DISP.SYRIN IV PRN ×2 (08:17)
[2017-06-05] MEDS ORDERED: POTASSI CL 20 MEQ/50 ML RIDER 20 MEQ/50 ML RTUPB IV ONE (09:00)
[2017-06-05] MEDS ORDERED: (PENDING PHARMACY ID) (Fluticasone/Vilanterol [Breo Ellipta 200-25 Mcg Inh] 1 PUFF) IH SCH (10:00)
[2017-06-05] MEDS: ENOXAPARIN SODIUM INJ 40 MG/0.4 ML DISP.SYRIN SUBCUT SCH (10:40)
[2017-06-05] MEDS: TIOTROPIUM BROMIDE DPI 5 CAP/KIT (18 MCG/CAP) IH SCH (10:40)
[2017-06-05] MEDS: ROFLUMILAST 500 MCG TABLET PO SCH (10:42)
[2017-06-05] MEDS: QUETIAPINE FUMARATE 100 MG TABLET PO SCH (10:42)
[2017-06-05] MEDS: LANSOPRAZOLE 30 MG TAB.RAP.DR PO SCH (10:42)
[2017-06-05] MEDS: SERTRALINE HCL 50 MG TABLET PO SCH (10:43)
[2017-06-05] MEDS: MIRTAZAPINE 15 MG TABLET PO SCH (10:43)
[2017-06-05] MEDS: PREDNISONE 5 MG TABLET PO SCH (10:43)
[2017-06-05] MEDS: FAMOTIDINE INJ/PF 20 MG/2 ML SDV IV SCH ×2 (10:44→21:06)
--- NOTE | 2017-06-05 10:55 | PDOC H&P ---
History of Present Illness Admission Date/PCP: 06/04/17 20:58 SILVINA KABA MD Patient complains of: Abdominal pain History of Present Illness: BRYON BONILLA is a 56 year old female with history of multiple abdominal operations and on a lot of medications for schizophrenia, c/o abdominal pains past few days with some nausea. Had Nate fundoplication for reflux in [place] about 15 years ago. This was followed by ventral hernia repair. She had a hysterectomy and apparently had exploratoey laparotomy for adhesions after. She was apparently in the ED past week for same complaints and was sent home. Claims her symptoms are worse this time. Claims has difficulty burping after her Nate surgery. Had CT scan today with IV contrast and appears to have dilated stomach but no other intra-abdominal findings may be some ileus. Patient was putting the oral feeding tubes to the mouth because patient unable to tolerate through the nose Patient still complaining of abdominal pain and nausea and unable to keep anything down Patient's denied any chest pain denied any shortness of the breath Patient is very anxious Past Medical History Cardiac Medical History: Reports: Hypertension Denies: Coronary Artery Disease, Myocardial Infarction Pulmonary Medical History: Reports: Asthma, Bronchitis, Chronic Obstructive Pulmonary Disease (COPD), Pneumonia Denies: Tuberculosis Neurological Medical History: Denies: Seizures Endocrine Medical History: Reports: Diabetes Mellitus Type 2 GI Medical History: Reports: Gastroesophageal Reflux Disease, Hiatal Hernia Denies: Hepatitis Musculoskeltal Medical History: Reports: Arthritis Psychiatric Medical History: Reports: Depression, Schizoaffective Disorder Hematology: Denies: Anemia, Sickle Cell Disease Past Surgical History Past Surgical History: Reports: Appendectomy, Section, Cholecystectomy , Hysterectomy, Other - Nate fundoplication, ventral herniorraphy 15 yrs ago Denies: Amputation, Mastectomy, Pacemaker Social History Lives with: Family Smoking Status: Former Smoker Number of Years Smokin Last Time Smoked: 05/28/2017 Frequency of Alcohol Use: None Hx Recreational Drug Use: No Drugs: None Hx Prescription Drug Abuse: No Family History Family History: CAD, COPD, Hypertension, Malignancy Parental Family History Reviewed: Yes Children Family History Reviewed: Yes Sibling(s) Family History Reviewed.: Yes Medication/Allergy Home Medications: Albuterol Sulfate [Proair HFA] 2 puff IH Q4 06/04/17 Clonidine HCl [Catapres 0.1 mg Tablet] 0.1 mg PO Q4 06/04/17 Cyclobenzaprine HCl [Flexeril 5 mg Tablet] 5 mg PO QHS 06/04/17 Dicyclomine HCl [Bentyl 20 mg Tablet] 20 mg PO TIDP PRN 06/04/17 Fluticasone/Vilanterol [Breo Ellipta 200-25 Mcg INH] 1 puff IH DAILY 06/04/17 Furosemide [Lasix 20 mg Tablet] 20 mg PO Q2D 06/04/17 Gabapentin [Neurontin 100 mg Capsule] 100 mg PO Q8 06/04/17 Hydroxyzine Pamoate [Vistaril 25 mg Capsule] 25 mg PO DAILYP PRN 06/04/17 Levothyroxine Sodium [Synthroid] 25 mcg PO Q6AM 06/04/17 Lorazepam [Ativan 1 mg Tablet] 1 mg PO QIDP PRN 06/04/17 Mirtazapine [Remeron 15 mg Tablet] 15 mg PO DAILY 06/04/17 Montelukast Sodium [Singulair 10 mg Tablet] 10 mg PO QPM 06/04/17 Nitroglycerin [Nitrostat] 0.3 mg SL Q5MP PRN 06/04/17 Omeprazole 40 mg PO DAILY 06/04/17 Ondansetron HCl [Zofran 4 mg Tablet] 4 mg PO Q6HP PRN 06/04/17 Prednisone [Deltasone 5 mg Tablet] 5 mg PO DAILY 06/04/17 Quetiapine Fumarate [Seroquel] 300 mg PO DAILY 06/04/17 Roflumilast [Daliresp 500 mcg Tablet] 500 mcg PO DAILY 06/04/17 Rosuvastatin Calcium [Crestor 10 mg Tablet] 10 mg PO QHS 06/04/17 Sertraline HCl [Zoloft 50 mg Tablet] 50 mg PO DAILY 06/04/17 Tiotropium [place] [Spiriva Respimat] 2 puff IH QAM 06/04/17 Zolpidem Tartrate [Ambien 5 mg Tablet] 5 mg PO QHS 06/04/17 Allergies/Adverse Reactions: clarithromycin [From Biaxin] Allergy (Severe, Verified 05/22/17 17:35) TONGUE/THROAT SWELLING furosemide [From Lasix] Allergy (Intermediate, Verified 05/22/17 17:35) UNSURE venlafaxine HCl [From Effexor] Allergy (Intermediate, Verified 05/22/17 17:35) MUSCLE WEAKNESS adhesive tape Allergy (Verified 05/22/17 17:35) RASH divalproex sodium [From Depakote] Allergy (Verified 05/22/17 17:35) UNSURE Review of Systems Constitutional: ABSENT: chills, fever(s), headache(s), weight gain, weight loss Eyes: ABSENT: visual disturbances Ears: ABSENT: hearing changes Cardiovascular: ABSENT: chest pain, dyspnea on exertion, edema, orthropnea, palpitations Respiratory: ABSENT: cough, hemoptysis Gastrointestinal: PRESENT: abdominal pain, nausea, vomiting. ABSENT: constipation, diarrhea, hematemesis, hematochezia Genitourinary: ABSENT: dysuria, hematuria Musculoskeletal: ABSENT: joint swelling Integumentary: ABSENT: rash, wounds Neurological: ABSENT: abnormal gait, abnormal speech, confusion, dizziness, focal weakness, syncope Psychiatric: PRESENT: anxiety, depression. ABSENT: homidical ideation, suicidal ideation Endocrine: ABSENT: cold intolerance, heat intolerance, menstrual abnormalities, polydipsia, polyuria Hematologic/Lymphatic: ABSENT: easy bleeding, easy bruising, lymphadenopathy Physical Exam Vital Signs: Temp Pulse Resp BP Pulse Ox 98.5 F 77 16 116/53 L 100 06/05/17 08:20 06/05/17 08:20 06/05/17 08:20 06/05/17 08:20 06/05/17 08:20 Intake & Output 06/04/17 06/05/17 06/06/17 06:59 06:59 06:59 Intake Total 413 Output Total 840 Balance -427 Weight 65.3 kg General appearance: PRESENT: no acute distress, well-developed, well-nourished Head exam: PRESENT: atraumatic, normocephalic Eye exam: PRESENT: conjunctiva pink, EOMI, PERRLA. ABSENT: scleral icterus Ear exam: PRESENT: normal external ear exam Mouth exam: PRESENT: moist, tongue midline Neck exam: PRESENT: full ROM. ABSENT: carotid bruit, JVD, lymphadenopathy, thyromegaly Respiratory exam: PRESENT: clear to auscultation wilfredo Cardiovascular exam: PRESENT: RRR. ABSENT: diastolic murmur, rubs, systolic murmur Pulses: PRESENT: normal dorsalis pedis pul, +2 pedal pulses bilateral Vascular exam: PRESENT: normal capillary refill GI/Abdominal exam: PRESENT: normal bowel sounds, soft. ABSENT: distended, guarding, mass, organolmegaly, rebound, tenderness Rectal exam: PRESENT: deferred Extremities exam: ABSENT: pedal edema Neurological exam: PRESENT: alert, awake, oriented to person, oriented to place , oriented to time, oriented to situation, CN II-XII grossly intact. ABSENT: motor sensory deficit Psychiatric exam: PRESENT: appropriate affect, normal mood. ABSENT: homicidal ideation, suicidal ideation Skin exam: PRESENT: dry, intact, warm. ABSENT: cyanosis, rash Results Laboratory Results: 06/05/17 04:50 06/05/17 04:50 06/05/17 06/05/17 04:50 04:50 WBC 8.1 RBC 4.00 Hgb 10.9 L Hct 34.0 L MCV 85 MCH 27.3 MCHC 32.1 RDW 16.4 H Plt Count 272 Seg Neutrophils % 89.5 H Lymphocytes % 5.7 L Monocytes % 4.1 Eosinophils % 0.1 Basophils % 0.6 Absolute Neutrophils 7.2 Absolute Lymphocytes 0.5 Absolute Monocytes 0.3 Absolute Eosinophils 0.0 Absolute Basophils 0.0 Sodium 137.9 Potassium 3.4 L Chloride 96 L Carbon Dioxide 34 H Anion Gap 8 BUN 4 L Creatinine 0.43 L Est GFR ( Amer) > 60 Est GFR (Non-Af Amer) > 60 Glucose 94 Calcium 8.5 Total Bilirubin 0.3 AST 20 ALT 16 Alkaline Phosphatase 58 Total Protein 6.1 L Albumin 3.6 Impressions: Abdomen/Pelvis CT 06/04/17 00:00 IMPRESSION: 1. THERE IS PROMINENCE OF THE RENAL PELVIS OF BOTH KIDNEYS WHICH IS A CHRONIC FINDING. PROMINENCE OF THE RIGHT RENAL PELVIS IS IMPROVED COMPARED TO THE PRIOR STUDY IN JANUARY 2015. THIS MAY BE AN EXTRARENAL PELVIS OR MILD URETEROPELVIC JUNCTION OBSTRUCTION. 2. NO OTHER SIGNIFICANT OR ACUTE FINDING IN THE ABDOMEN OR PELVIS ON CT SCAN WITH IV CONTRAST. Chest X-Ray 06/04/17 15:18 IMPRESSION: There appear to be mild chronic lung changes with no acute cardiopulmonary disease. Assessment & Plan - Diagnosis (1) Ileus Is this a current diagnosis for this admission?: Yes Plan: Patient CT abdomen pelvis did not say anything much but have a some extra expected some stomach dilatations with surgery follow with that (2) Abdominal pain Qualifiers: Abdominal location: unspecified location Qualified Code(s): R10.9 - Unspecified abdominal pain Is this a current diagnosis for this admission?: Yes Plan: Most likely related to the ileus was some gastritis currently follow with the surgery will consult the GI continues to PPI (3) COPD (chronic obstructive pulmonary disease) Qualifiers: COPD type: chronic bronchitis Is this a current diagnosis for this admission?: Yes Plan: Continues to current medication (4) Diabetes Qualifiers: Diabetes mellitus type: type 2 Diabetes mellitus complication status: with unspecified complications Is this a current diagnosis for this admission?: Yes Plan: Continues a sliding scale (5) Generalized anxiety disorder Is this a current diagnosis for this admission?: Yes Plan: Continues to current medications (6) Hypertension Qualifiers: Hypertension type: essential hypertension Qualified Code(s): I10 - Essential (primary) hypertension Is this a current diagnosis for this admission?: Yes Plan: Continues to clonidine - Time Time Spent: 30 to 50 Minutes Medications reviewed and adjusted accordingly: Yes Anticipated discharge: Other Within: Other - Inpatient Certification Medical Necessity: Need Close Monitoring Due to Risk of Patient Decompensation, Need For IV Fluids 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
[2017-06-05] MEDS: NORMAL SALINE 1000 ML 1,000 ML IV PRN (15:08)
[2017-06-05] MEDS ORDERED: POTASSIUM CHLORIDE 20 MEQ/50 ML RTU IV ONE (15:30)
[2017-06-05] MEDS: MONTELUKAST SODIUM 10 MG TABLET PO SCH (17:58)
--- NOTE | 2017-06-05 18:09 | PDOC CONSULTATION ---
Consultation Consult Date: 06/05/17 Attending physician:: GABRIEL BARBOUR Consult reason:: Abdominal pain, nausea and vomiting History of Present Illness Admission Date/PCP: 06/04/17 20:58 SILVINA KABA MD History of Present Illness: This patient has been seen in the past. She had undergone EGD and colonoscopy in the past. She states that she had some sort of Nate fundoplication in [facility] after which point she started to have more significant stomach problems. She was noted on CT scan to have an ileus and a distended stomach. She has been having some nausea and vomiting. She has required antiemetics every half hour or so. Dr. Kaba has requested GI evaluation. Will need to rule out gastric outlet obstruction. A KUB is in progress. surgery has been following her. Overall she is not a good historian. However she is able to tell me that there is no blood. She says whenever she eats she is not able to do so. An OG tube has been placed and it is draining out bile. Could be due to the ileus. She will need to be excluded for gastric outlet obstruction. The other etiology could be that the Nate fundoplication is just too tight, and if that were to be the case she may need to be transferred to a tertiary institution for possible evaluation of admission. Past Medical History Cardiac Medical History: Reports: Hypertension Denies: Coronary Artery Disease, Myocardial Infarction Pulmonary Medical History: Reports: Asthma, Bronchitis, Chronic Obstructive Pulmonary Disease (COPD), Pneumonia Denies: Tuberculosis Neurological Medical History: Denies: Seizures Endocrine Medical History: Reports: Diabetes Mellitus Type 2 GI Medical History: Reports: Gastroesophageal Reflux Disease, Hiatal Hernia Denies: Hepatitis Musculoskeltal Medical History: Reports: Arthritis Psychiatric Medical History: Reports: Depression, Schizoaffective Disorder Hematology: Denies: Anemia, Sickle Cell Disease Past Surgical History Past Surgical History: Reports: Appendectomy, Section, Cholecystectomy , Hysterectomy, Other - Nate fundoplication, ventral herniorraphy 15 yrs ago Denies: Amputation, Mastectomy, Pacemaker Social History Lives with: Family Smoking Status: Former Smoker Number of Years Smokin Last Time Smoked: 05/28/2017 Frequency of Alcohol Use: None Hx Recreational Drug Use: No Drugs: None Hx Prescription Drug Abuse: No Family History Family History: CAD, COPD, Hypertension, Malignancy Parental Family History Reviewed: Yes Children Family History Reviewed: Unknown Sibling(s) Family History Reviewed.: Unknown Medication/Allergy Home Medications: Albuterol Sulfate [Proair HFA] 2 puff IH Q4 06/04/17 Clonidine HCl [Catapres 0.1 mg Tablet] 0.1 mg PO Q4 06/04/17 Cyclobenzaprine HCl [Flexeril 5 mg Tablet] 5 mg PO QHS 06/04/17 Dicyclomine HCl [Bentyl 20 mg Tablet] 20 mg PO TIDP PRN 06/04/17 Fluticasone/Vilanterol [Breo Ellipta 200-25 Mcg INH] 1 puff IH DAILY 06/04/17 Furosemide [Lasix 20 mg Tablet] 20 mg PO Q2D 06/04/17 Gabapentin [Neurontin 100 mg Capsule] 100 mg PO Q8 06/04/17 Hydroxyzine Pamoate [Vistaril 25 mg Capsule] 25 mg PO DAILYP PRN 06/04/17 Levothyroxine Sodium [Synthroid] 25 mcg PO Q6AM 06/04/17 Lorazepam [Ativan 1 mg Tablet] 1 mg PO QIDP PRN 06/04/17 Mirtazapine [Remeron 15 mg Tablet] 15 mg PO DAILY 06/04/17 Montelukast Sodium [Singulair 10 mg Tablet] 10 mg PO QPM 06/04/17 Nitroglycerin [Nitrostat] 0.3 mg SL Q5MP PRN 06/04/17 Omeprazole 40 mg PO DAILY 06/04/17 Ondansetron HCl [Zofran 4 mg Tablet] 4 mg PO Q6HP PRN 06/04/17 Prednisone [Deltasone 5 mg Tablet] 5 mg PO DAILY 06/04/17 Quetiapine Fumarate [Seroquel] 300 mg PO DAILY 06/04/17 Roflumilast [Daliresp 500 mcg Tablet] 500 mcg PO DAILY 06/04/17 Rosuvastatin Calcium [Crestor 10 mg Tablet] 10 mg PO QHS 06/04/17 Sertraline HCl [Zoloft 50 mg Tablet] 50 mg PO DAILY 06/04/17 Tiotropium [place] [Spiriva Respimat] 2 puff IH QAM 06/04/17 Zolpidem Tartrate [Ambien 5 mg Tablet] 5 mg PO QHS 06/04/17 Allergies/Adverse Reactions: clarithromycin [From Biaxin] Allergy (Severe, Verified 05/22/17 17:35) TONGUE/THROAT SWELLING furosemide [From Lasix] Allergy (Intermediate, Verified 05/22/17 17:35) UNSURE venlafaxine HCl [From Effexor] Allergy (Intermediate, Verified 05/22/17 17:35) MUSCLE WEAKNESS adhesive tape Allergy (Verified 05/22/17 17:35) RASH divalproex sodium [From Depakote] Allergy (Verified 05/22/17 17:35) UNSURE Review of Systems Constitutional: ABSENT: fever(s), headache(s), night sweats Eyes: ABSENT: visual disturbances Ears: ABSENT: hearing changes Nose, Mouth, and Throat: ABSENT: mouth pain, sore throat Cardiovascular: ABSENT: chest pain, orthropnea Respiratory: ABSENT: dyspnea, hemoptysis Gastrointestinal: PRESENT: abdominal pain, dysphagia, nausea, vomiting. ABSENT : diarrhea, hematochezia, melena Genitourinary: ABSENT: dysuria, hematuria Musculoskeletal: ABSENT: deformity, joint swelling Integumentary: ABSENT: lesions, pruritus Neurological: ABSENT: syncope, tingling, tremor(s), vertigo Endocrine: ABSENT: polydipsia, polyphagia, polyuria Hematologic/Lymphatic: ABSENT: easy bruising Physical Exam Vital Signs: Temp Pulse Resp BP Pulse Ox 99.0 F 83 16 109/54 L 100 06/05/17 16:51 06/05/17 16:51 06/05/17 16:51 06/05/17 16:51 06/05/17 17:12 Intake & Output 06/04/17 06/05/17 06/06/17 06:59 06:59 06:59 Intake Total 413 825 Output Total 840 Balance -427 825 Weight 65.3 kg General appearance: PRESENT: mild distress, thin Head exam: PRESENT: atraumatic, normocephalic Eye exam: PRESENT: EOMI, PERRLA. ABSENT: nystagmus, periorbital swelling, scleral icterus Mouth exam: PRESENT: moist, neck supple Throat exam: ABSENT: tonsillar exudate, tonsillogmegaly Neck exam: ABSENT: meningismus, tenderness, thyromegaly Respiratory exam: PRESENT: symmetrical, unlabored. ABSENT: tachypnea, wheezes Cardiovascular exam: PRESENT: RRR, +S1, +S2 GI/Abdominal exam: PRESENT: soft. ABSENT: rebound, rigid, tenderness Extremities exam: ABSENT: joint swelling Musculoskeletal exam: PRESENT: full ROM Neurological exam: PRESENT: alert, altered, oriented to time, oriented to situation, CN II-XII grossly intact Focused psych exam: ABSENT: restlessness Skin exam: PRESENT: normal color. ABSENT: mottled, pallor, petechiae, urticaria , vesicles Results Laboratory Results: 06/05/17 04:50 06/05/17 04:50 06/05/17 06/05/17 04:50 04:50 WBC 8.1 RBC 4.00 Hgb 10.9 L Hct 34.0 L MCV 85 MCH 27.3 MCHC 32.1 RDW 16.4 H Plt Count 272 Seg Neutrophils % 89.5 H Lymphocytes % 5.7 L Monocytes % 4.1 Eosinophils % 0.1 Basophils % 0.6 Absolute Neutrophils 7.2 Absolute Lymphocytes 0.5 Absolute Monocytes 0.3 Absolute Eosinophils 0.0 Absolute Basophils 0.0 Sodium 137.9 Potassium 3.4 L Chloride 96 L Carbon Dioxide 34 H Anion Gap 8 BUN 4 L Creatinine 0.43 L Est GFR ( Amer) > 60 Est GFR (Non-Af Amer) > 60 Glucose 94 Calcium 8.5 Total Bilirubin 0.3 AST 20 ALT 16 Alkaline Phosphatase 58 Total Protein 6.1 L Albumin 3.6 Impressions: Abdomen/Pelvis CT 06/04/17 00:00 IMPRESSION: 1. THERE IS PROMINENCE OF THE RENAL PELVIS OF BOTH KIDNEYS WHICH IS A CHRONIC FINDING. PROMINENCE OF THE RIGHT RENAL PELVIS IS IMPROVED COMPARED TO THE PRIOR STUDY IN JANUARY 2015. THIS MAY BE AN EXTRARENAL PELVIS OR MILD URETEROPELVIC JUNCTION OBSTRUCTION. 2. NO OTHER SIGNIFICANT OR ACUTE FINDING IN THE ABDOMEN OR PELVIS ON CT SCAN WITH IV CONTRAST. Chest X-Ray 06/04/17 15:18 IMPRESSION: There appear to be mild chronic lung changes with no acute cardiopulmonary disease. Assessment & Plan - Diagnosis (1) Abdominal pain Qualifiers: Abdominal location: unspecified location Qualified Code(s): R10.9 - Unspecified abdominal pain Is this a current diagnosis for this admission?: Yes Plan: May be due to peptic ulcer disease we will plan on upper endoscopy. She will likely need propofol sedation. Risks benefits alternatives of the procedure including risks of bleeding, perforation requiring surgery are explained to the patient detail informed consent was obtained and further recommendations will be based upon findings. Keep OG tube for now. We will wait on findings of KUB. Question if a Nate fundoplication has slipped or whether she may have had a paraesophageal hernia. (2) Ileus Is this a current diagnosis for this admission?: Yes Plan: Continue to check her electrolytes corrected as necessary Hopefully that should resolve Rule out other sources of infection Previous colonoscopy done Discussed case with Dr. Kaba surgery continues to follow to make sure there is no acute surgical abdomen - Time Time Spent: 50 to 70 Minutes
--- NOTE | 2017-06-05 19:46 | PDOC PROGRESS REPORT ---
Subjective Progress Note for:: 06/05/17 Subjective:: Still c/o generalized abdominal pains Reason For Visit: ABD PAIN, ILLEUS Physical Exam Vital Signs: Temp Pulse Resp BP Pulse Ox 99.0 F 95 16 109/54 L 100 06/05/17 16:51 06/05/17 19:00 06/05/17 16:51 06/05/17 16:51 06/05/17 17:12 Intake & Output 06/04/17 06/05/17 06/06/17 06:59 06:59 06:59 Intake Total 413 825 Output Total 840 700 Balance -427 125 Weight 65.3 kg Exam: abd is soft not distended with mild diffuse tenderness NGT has about 200 ccs greenish fluid since last night. Results Laboratory Results: 06/05/17 04:50 06/05/17 04:50 06/05/17 06/05/17 04:50 04:50 WBC 8.1 RBC 4.00 Hgb 10.9 L Hct 34.0 L MCV 85 MCH 27.3 MCHC 32.1 RDW 16.4 H Plt Count 272 Seg Neutrophils % 89.5 H Lymphocytes % 5.7 L Monocytes % 4.1 Eosinophils % 0.1 Basophils % 0.6 Absolute Neutrophils 7.2 Absolute Lymphocytes 0.5 Absolute Monocytes 0.3 Absolute Eosinophils 0.0 Absolute Basophils 0.0 Sodium 137.9 Potassium 3.4 L Chloride 96 L Carbon Dioxide 34 H Anion Gap 8 BUN 4 L Creatinine 0.43 L Est GFR ( Amer) > 60 Est GFR (Non-Af Amer) > 60 Glucose 94 Calcium 8.5 Total Bilirubin 0.3 AST 20 ALT 16 Alkaline Phosphatase 58 Total Protein 6.1 L Albumin 3.6 Impressions: Abdomen/Pelvis CT 06/04/17 00:00 IMPRESSION: 1. THERE IS PROMINENCE OF THE RENAL PELVIS OF BOTH KIDNEYS WHICH IS A CHRONIC FINDING. PROMINENCE OF THE RIGHT RENAL PELVIS IS IMPROVED COMPARED TO THE PRIOR STUDY IN JANUARY 2015. THIS MAY BE AN EXTRARENAL PELVIS OR MILD URETEROPELVIC JUNCTION OBSTRUCTION. 2. NO OTHER SIGNIFICANT OR ACUTE FINDING IN THE ABDOMEN OR PELVIS ON CT SCAN WITH IV CONTRAST. Chest X-Ray 06/04/17 15:18 IMPRESSION: There appear to be mild chronic lung changes with no acute cardiopulmonary disease. Assessment & Plan - Diagnosis (1) Ileus Is this a current diagnosis for this admission?: Yes (2) COPD exacerbation Is this a current diagnosis for this admission?: Yes (3) Coronary artery disease Qualifiers: Coronary Disease-Associated Artery/Lesion type: [place] artery Associated angina: angina presence unspecified Is this a current diagnosis for this admission?: Yes (4) Diabetes Qualifiers: Diabetes mellitus type: type 2 Diabetes mellitus complication status: with unspecified complications Is this a current diagnosis for this admission?: Yes (5) Generalized anxiety disorder Is this a current diagnosis for this admission?: Yes - Time Time Spent with patient: 15-24 minutes - Plan Summary Plan Summary: GI consult noted. For EGD tomorrow. Will leave NGT in place for now. Ileus appears to be resolving on KUB
--- NOTE | 2017-06-05 19:47 | RADIOLOGY REPORT (SQ) ---
EXAM DESCRIPTION: KUB/ABDOMEN (SINGLE VIEW) COMPLETED DATE/TIME: 06/05/2017 6:32 pm REASON FOR STUDY: ileus follow-up COMPARISON: 05/22/2017 NUMBER OF VIEWS: One view. TECHNIQUE: Supine radiographic image of the abdomen acquired. LIMITATIONS: None. FINDINGS: BOWEL GAS PATTERN: Normal bowel gas pattern. No dilated loops. CALCIFICATIONS: No suspicious calcifications. SOFT TISSUES: No gross mass or suggestion of organomegaly. HARDWARE: None in the abdomen. BONES: No acute fracture. No worrisome bone lesions. OTHER: No other significant finding. IMPRESSION: NO RADIOGRAPHIC EVIDENCE FOR ACUTE ABDOMINAL DISEASE. TECHNICAL DOCUMENTATION: JOB ID: [id number] [employer]- All Rights Reserved Reading location - IP/workstation name: [email or web address]
[2017-06-05] MEDS: ZOLPIDEM TARTRATE 5 MG TABLET PO SCH (21:06)
[2017-06-05] MEDS: CYCLOBENZAPRINE HCL 10 MG TABLET PO SCH (21:07)
[2017-06-05] MEDS: ATORVASTATIN CALCIUM 20 MG TABLET PO SCH (21:07)
[2017-06-06] MEDS: HYDROMORPHONE HCL INJ/PF 2 MG/ML AMPULE IV PRN ×2 (04:20→15:08)
[2017-06-06] MEDS: NORMAL SALINE 1000 ML 1,000 ML IV PRN ×2 (04:23→17:18)
[2017-06-06] MEDS: LEVOTHYROXINE SODIUM 0.025 MG TABLET PO SCH (05:02)
[2017-06-06] MEDS: GABAPENTIN 100 MG CAPSULE PO SCH ×3 (05:02→21:16)
[2017-06-06] MEDS: ONDANSETRON HCL INJ/PF 4 MG/2 ML SDV IV PRN (05:11)
[2017-06-06 05:25] LABS: ABSOLUTE LYMPHOCYTES (AUTO) 0.8 10^3/uL (0.5-4.7); ABSOLUTE MONOCYTES (AUTO) 0.6 10^3/uL (0.1-1.4); ABSOLUTE NEUT (AUTO) 3.9 10^3/uL (1.7-8.2); BASOPHILS % (AUTO) 0.7 % (0-2); EOSINOPHILS % (AUTO) 0.5 % (0-6); HEMATOCRIT 32.2 % (36.0-47.0); HEMOGLOBIN 10.4 g/dL (12.0-15.5); LYMPHOCYTES % (AUTO) 15.5 % (13-45); MEAN CORPUSCULAR HEMOGLOBIN 27.2 pg (27.0-33.4); MEAN CORPUSCULAR HGB CONC 32.2 g/dL (32.0-36.0); MEAN CORPUSCULAR VOLUME 84 fl (80-97); MONOCYTES % (AUTO) 10.7 % (3-13); PLATELET COUNT 261 10^3/uL (150-450); RED BLOOD COUNT 3.82 10^6/uL (3.72-5.28); RED CELL DISTRIBUTION WIDTH 16.2 % (11.5-14.0); SEGMENTED NEUTROPHILS % (AUTO) 72.6 % (42-78); TOTAL CELLS COUNTED % (AUTO) 100 %; WHITE BLOOD COUNT 5.4 10^3/uL (4.0-10.5)
[2017-06-06 05:46] LABS: ANION GAP 9 (5-19); BLOOD UREA NITROGEN 8 mg/dL (7-20); CALCIUM 9.1 mg/dL (8.4-10.2); CARBON DIOXIDE 32 mmol/L (22-30); CHLORIDE 96 mmol/L (98-107); GLUCOSE 71 mg/dL (75-110); SODIUM 137.3 mmol/L (137-145)
[2017-06-06] MEDS: TIOTROPIUM BROMIDE DPI 5 CAP/KIT (18 MCG/CAP) IH SCH (07:37)
[2017-06-06] MEDS: LORAZEPAM 1 MG TABLET PO PRN (08:20)
[2017-06-06] MEDS: IPRATROPIUM/ALBUTEROL 0.5-2.5 MG/3 ML AMPUL NEB SCH ×3 (08:28→19:38)
--- NOTE | 2017-06-06 09:00 | PDOC PROGRESS REPORT ---
Subjective Progress Note for:: 06/06/17 Subjective:: Patient is currently doing same Still have epigastric pains still unable to eat or drink Since still have OG tubes Patient's KUB is all normal yesterday Patient scheduled for the endoscopy Patient's claim she does not eat or drink since last 1 week but does not look like when you are looking for the labs is all normal Patient's significant other psych problem Reason For Visit: ABD PAIN, ILLEUS Physical Exam Vital Signs: Temp Pulse Resp BP Pulse Ox 98.3 F 75 20 115/51 L 94 06/06/17 00:19 06/06/17 07:00 06/06/17 00:19 06/06/17 00:19 06/06/17 00:19 Intake & Output 06/05/17 06/06/17 06/07/17 06:59 06:59 06:59 Intake Total 413 1780 Output Total 840 1360 Balance -427 420 Weight 65.3 kg 64.6 kg General appearance: PRESENT: no acute distress, well-developed, well-nourished Head exam: PRESENT: atraumatic, normocephalic Eye exam: PRESENT: conjunctiva pink, EOMI, PERRLA. ABSENT: scleral icterus Ear exam: PRESENT: normal external ear exam Mouth exam: PRESENT: moist, tongue midline Neck exam: PRESENT: full ROM. ABSENT: carotid bruit, JVD, lymphadenopathy, thyromegaly Respiratory exam: PRESENT: clear to auscultation wilfredo Cardiovascular exam: PRESENT: RRR. ABSENT: diastolic murmur, rubs, systolic murmur Pulses: PRESENT: normal dorsalis pedis pul, +2 pedal pulses bilateral Vascular exam: PRESENT: normal capillary refill GI/Abdominal exam: PRESENT: normal bowel sounds, soft. ABSENT: distended, guarding, mass, organolmegaly, rebound, tenderness Rectal exam: PRESENT: deferred Neurological exam: PRESENT: alert, awake, oriented to person, oriented to place. ABSENT: motor sensory deficit Psychiatric exam: PRESENT: appropriate affect, normal mood. ABSENT: homicidal ideation, suicidal ideation Skin exam: PRESENT: dry, intact, warm. ABSENT: cyanosis, rash Results Laboratory Results: 06/06/17 04:30 06/06/17 04:30 06/06/17 06/06/17 04:30 04:30 WBC 5.4 RBC 3.82 Hgb 10.4 L Hct 32.2 L MCV 84 MCH 27.2 MCHC 32.2 RDW 16.2 H Plt Count 261 Seg Neutrophils % 72.6 Lymphocytes % 15.5 Monocytes % 10.7 Eosinophils % 0.5 Basophils % 0.7 Absolute Neutrophils 3.9 Absolute Lymphocytes 0.8 Absolute Monocytes 0.6 Absolute Eosinophils 0.0 Absolute Basophils 0.0 Sodium 137.3 Potassium 4.0 Chloride 96 L Carbon Dioxide 32 H Anion Gap 9 BUN 8 Creatinine 0.40 L Est GFR ( Amer) > 60 Est GFR (Non-Af Amer) > 60 Glucose 71 L Calcium 9.1 Magnesium 1.7 06/04/17 22:35 Catheterized Urine Urine Culture - Final NO GROWTH 2 DAYS Impressions: Abdomen/Pelvis CT 06/04/17 00:00 IMPRESSION: 1. THERE IS PROMINENCE OF THE RENAL PELVIS OF BOTH KIDNEYS WHICH IS A CHRONIC FINDING. PROMINENCE OF THE RIGHT RENAL PELVIS IS IMPROVED COMPARED TO THE PRIOR STUDY IN JANUARY 2015. THIS MAY BE AN EXTRARENAL PELVIS OR MILD URETEROPELVIC JUNCTION OBSTRUCTION. 2. NO OTHER SIGNIFICANT OR ACUTE FINDING IN THE ABDOMEN OR PELVIS ON CT SCAN WITH IV CONTRAST. Chest X-Ray 06/04/17 15:18 IMPRESSION: There appear to be mild chronic lung changes with no acute cardiopulmonary disease. KUB X-Ray 06/05/17 00:00 IMPRESSION: NO RADIOGRAPHIC EVIDENCE FOR ACUTE ABDOMINAL DISEASE. Assessment & Plan - Diagnosis (1) Ileus Is this a current diagnosis for this admission?: Yes Plan: Currently all resolving follow with the surgery discussed with the Dr. Lopez repeat the KUB (2) Abdominal pain Qualifiers: Abdominal location: unspecified location Qualified Code(s): R10.9 - Unspecified abdominal pain Is this a current diagnosis for this admission?: Yes Plan: going for endoscopy (3) COPD (chronic obstructive pulmonary disease) Qualifiers: COPD type: chronic bronchitis Is this a current diagnosis for this admission?: Yes Plan: stable (4) Diabetes Qualifiers: Diabetes mellitus type: type 2 Diabetes mellitus complication status: with unspecified complications Is this a current diagnosis for this admission?: Yes Plan: stable (5) Generalized anxiety disorder Is this a current diagnosis for this admission?: Yes Plan: Continues to current medications (6) Hypertension Qualifiers: Hypertension type: essential hypertension Qualified Code(s): I10 - Essential (primary) hypertension Is this a current diagnosis for this admission?: Yes Plan: Continues to clonidine - Time Time Spent with patient: 15-24 minutes Medications reviewed and adjusted accordingly: Yes Anticipated discharge: Other Within: Other - Inpatient Certification Medical Necessity: Need Close Monitoring Due to Risk of Patient Decompensation Post Hospital Care: D/C Deputy County Counsel Documentation - Plan Summary Plan Summary: d/w sister about pt condition
--- NOTE | 2017-06-06 09:46 | RADIOLOGY REPORT (SQ) ---
EXAM DESCRIPTION: KUB/ABDOMEN (SINGLE VIEW) COMPLETED DATE/TIME: 06/06/2017 9:36 am REASON FOR STUDY: ileus COMPARISON: None. NUMBER OF VIEWS: One view. TECHNIQUE: Supine radiographic image of the abdomen acquired. LIMITATIONS: None. FINDINGS: BOWEL GAS PATTERN: Normal bowel gas pattern. Contrast in the colon. No dilated loops. CALCIFICATIONS: No suspicious calcifications. SOFT TISSUES: No gross mass or suggestion of organomegaly. HARDWARE: None in the abdomen. BONES: No acute fracture. Chronic changes in the spine. No worrisome bone lesions. OTHER: No other significant finding. IMPRESSION: NO RADIOGRAPHIC EVIDENCE FOR ACUTE ABDOMINAL DISEASE. TECHNICAL DOCUMENTATION: JOB ID: [id number] [employer]- All Rights Reserved Reading location - IP/workstation name: [email or web address]
[2017-06-06] MEDS ORDERED: PROPOFOL INJ 200 MG/20 ML VIAL IV ONE (10:47)
--- NOTE | 2017-06-06 12:20 | Physician Advisory Note ---
Physician Advisor ProgressNote .: Pursuant to the plan for [facility], I have reviewed the medical record for this patient. Physician Advisor Statement: Please consider documenting, if you agree: 1. "Acute generalized [vs. LUQ, ...] abd pain, likely due to " [in addition to ileus, now resolved] - need location of abd pain specified, as well as most likely cause. 2. ? "suspected protein-calorie malnutrition [state mild, mod, or severe] with BMI 25.2, low BUN & Cr, ____[?wt loss, ?appetite loss, ]" [if possible, give specifics on intake, wt loss, loss of SQ fat & muscle mass, diminished hand senior planning manager strength, & clinical importance such as (A) nutritional assessment ordered, (B) modified diet or supplements ordered, (C) additional labs ordered, (D) prolonged wound healing time, (E) delayed infxn clearance] Thanks! CK
[2017-06-06] MEDS ORDERED: DIPHENHYDRAMINE HCL 50 MG/ML VIAL IV PRN (13:32)
[2017-06-06] MEDS ORDERED: PROMETHAZINE HCL INJ 25 MG/1 ML VIAL IV PRN (13:32)
[2017-06-06] MEDS ORDERED: FENTANYL CITRATE INJ/PF 100 MCG/2 ML AMPUL IV PRN ×2 (13:32)
[2017-06-06] MEDS: ENOXAPARIN SODIUM INJ 40 MG/0.4 ML DISP.SYRIN SUBCUT SCH (14:40)
[2017-06-06] MEDS: FAMOTIDINE INJ/PF 20 MG/2 ML SDV IV SCH ×2 (14:40→21:16)
--- NOTE | 2017-06-06 14:46 | Operative Report ---
Operative Report DATE OF SURGERY: 06/06/17 Operative Report: The risks benefits and alternatives of the procedure explained to the patient in detail and informed consent is obtained.A GIF Olympus video scope was inserted into the patient's mouth and hypopharynx, the esophagus is identified intubated and insufflated ,the scope was then advanced through the esophagus stomach and duodenum, retroflexion maneuver is done, the esophagus stomach and first and second portions of the duodenum examined PREOPERATIVE DIAGNOSIS: Nausea vomiting. Abdominal pain. Status post Nate fundoplication POSTOPERATIVE DIAGNOSIS: Gastritis status post biopsy rule out Helicobacter pylori. Esophagitis. Nate fundoplication intact. Symptoms likely due to ileus. Postprocedure she is passing flatus, may have resolved. Discontinue OGT OPERATION: EGD with biopsy SURGEON: GABRIEL BARBOUR ANESTHESIA: LMAC TISSUE REMOVED OR ALTERED: As noted above. COMPLICATIONS: None. ESTIMATED BLOOD LOSS: None. INTRAOPERATIVE FINDINGS: As noted above. PROCEDURE: Patient tolerated procedure well. No immediate postprocedure complications are noted. Patient sent back to her room in good condition. Resume clear fluids advance as tolerated Resume previous activity level We will wait on biopsy Further recommendations to follow Spoke with Dr. Xavier with regards to findings
[2017-06-06] MEDS: CLONIDINE HCL 0.1 MG TABLET PO SCH (15:05)
[2017-06-06] MEDS: QUETIAPINE FUMARATE 100 MG TABLET PO SCH (15:06)
[2017-06-06] MEDS: MIRTAZAPINE 15 MG TABLET PO SCH (15:06)
[2017-06-06] MEDS: SERTRALINE HCL 50 MG TABLET PO SCH (15:07)
[2017-06-06] MEDS: PREDNISONE 5 MG TABLET PO SCH (15:08)
[2017-06-06] MEDS: LANSOPRAZOLE 30 MG TAB.RAP.DR PO SCH (15:08)
[2017-06-06] MEDS: ROFLUMILAST 500 MCG TABLET PO SCH (15:08)
[2017-06-06] MEDS: MONTELUKAST SODIUM 10 MG TABLET PO SCH (17:10)
[2017-06-06] MEDS: ZOLPIDEM TARTRATE 5 MG TABLET PO SCH (21:16)
[2017-06-06] MEDS: ATORVASTATIN CALCIUM 20 MG TABLET PO SCH (21:16)
[2017-06-06] MEDS: CYCLOBENZAPRINE HCL 10 MG TABLET PO SCH (21:16)
--- NOTE | 2017-06-06 23:40 | PDOC PROGRESS REPORT ---
Subjective Progress Note for:: 06/06/17 Subjective:: Patient complains of a chronic history of abdominal bloating, especially after p.o. intake. She denies however dysphagia as long as she chews her food properly. She has had a history of Niesen fundoplication in the remote past. She has had a colonoscopy in the past with no significant findings as per the patient. However she suffers from constipation. Currently she feels well with a decreased abdominal distention and she has been passing gas with no emesis. Reason For Visit: ABD PAIN, ILLEUS Physical Exam Vital Signs: Temp Pulse Resp BP Pulse Ox 99.1 F 80 18 115/60 97 06/06/17 19:37 06/06/17 19:40 06/06/17 19:40 06/06/17 19:37 06/06/17 19:37 Intake & Output 06/05/17 06/06/17 06/07/17 06:59 06:59 06:59 Intake Total 413 1780 1512 Output Total 840 1360 750 Balance -427 420 762 Weight 65.3 kg 64.6 kg General appearance: PRESENT: no acute distress, cooperative Respiratory exam: PRESENT: clear to auscultation wilfredo Cardiovascular exam: PRESENT: RRR GI/Abdominal exam: PRESENT: other - Soft, nondistended, nontender to palpation. Results Laboratory Results: 06/06/17 04:30 06/06/17 04:30 06/06/17 06/06/17 04:30 04:30 WBC 5.4 RBC 3.82 Hgb 10.4 L Hct 32.2 L MCV 84 MCH 27.2 MCHC 32.2 RDW 16.2 H Plt Count 261 Seg Neutrophils % 72.6 Lymphocytes % 15.5 Monocytes % 10.7 Eosinophils % 0.5 Basophils % 0.7 Absolute Neutrophils 3.9 Absolute Lymphocytes 0.8 Absolute Monocytes 0.6 Absolute Eosinophils 0.0 Absolute Basophils 0.0 Sodium 137.3 Potassium 4.0 Chloride 96 L Carbon Dioxide 32 H Anion Gap 9 BUN 8 Creatinine 0.40 L Est GFR ( Amer) > 60 Est GFR (Non-Af Amer) > 60 Glucose 71 L Calcium 9.1 Magnesium 1.7 Impressions: Abdomen/Pelvis CT 06/04/17 00:00 IMPRESSION: 1. THERE IS PROMINENCE OF THE RENAL PELVIS OF BOTH KIDNEYS WHICH IS A CHRONIC FINDING. PROMINENCE OF THE RIGHT RENAL PELVIS IS IMPROVED COMPARED TO THE PRIOR STUDY IN JANUARY 2015. THIS MAY BE AN EXTRARENAL PELVIS OR MILD URETEROPELVIC JUNCTION OBSTRUCTION. 2. NO OTHER SIGNIFICANT OR ACUTE FINDING IN THE ABDOMEN OR PELVIS ON CT SCAN WITH IV CONTRAST. Chest X-Ray 06/04/17 15:18 IMPRESSION: There appear to be mild chronic lung changes with no acute cardiopulmonary disease. KUB X-Ray 06/06/17 00:00 IMPRESSION: NO RADIOGRAPHIC EVIDENCE FOR ACUTE ABDOMINAL DISEASE. Assessment & Plan - Diagnosis (1) Abdominal pain Qualifiers: Abdominal location: epigastric Qualified Code(s): R10.13 - Epigastric pain Is this a current diagnosis for this admission?: Yes Plan: Patient likely has gas bloat syndrome after her Nate fundoplication. Her constipation is not helping matters either. I have had a discussion with the patient concerning management. Lifestyle changes such as eating smaller meals chewing of food really well and using liberal amounts of simethicone. I have also asked her to take MiraLAX daily to keep her constipation at bay. Patient does not have an obstruction and I do not think she has an ileus. She has chronic problems secondary to her fundoplication. I do not see any role for surgical intervention at this time. Recommend advancing her diet and if tolerated, discharge patient with MiraLAX 1 capful twice daily and simethicone 3 times daily as needed abdominal bloating.
[2017-06-07] MEDS: HYDROMORPHONE HCL INJ/PF 2 MG/ML AMPULE IV PRN ×2 (01:29→10:27)
[2017-06-07] MEDS: LORAZEPAM 1 MG TABLET PO PRN ×2 (04:06→16:04)
[2017-06-07] MEDS: NORMAL SALINE 1000 ML 1,000 ML IV PRN (04:59)
[2017-06-07] MEDS: LEVOTHYROXINE SODIUM 0.025 MG TABLET PO SCH (05:02)
[2017-06-07] MEDS: GABAPENTIN 100 MG CAPSULE PO SCH ×3 (05:02→21:01)
[2017-06-07 05:13] LABS: ABSOLUTE EOSINOPHILS # (AUTO) 0.1 10^3/uL (0.0-0.6); ABSOLUTE MONOCYTES (AUTO) 0.7 10^3/uL (0.1-1.4); ABSOLUTE NEUT (AUTO) 4.1 10^3/uL (1.7-8.2); BASOPHILS % (AUTO) 0.8 % (0-2); EOSINOPHILS % (AUTO) 1.4 % (0-6); HEMATOCRIT 32.7 % (36.0-47.0); HEMOGLOBIN 10.6 g/dL (12.0-15.5); LYMPHOCYTES % (AUTO) 16.7 % (13-45); MEAN CORPUSCULAR HGB CONC 32.3 g/dL (32.0-36.0); MEAN CORPUSCULAR VOLUME 84 fl (80-97); MONOCYTES % (AUTO) 11.7 % (3-13); PLATELET COUNT 255 10^3/uL (150-450); RED CELL DISTRIBUTION WIDTH 16.4 % (11.5-14.0); SEGMENTED NEUTROPHILS % (AUTO) 69.4 % (42-78); TOTAL CELLS COUNTED % (AUTO) 100 %; WHITE BLOOD COUNT 5.9 10^3/uL (4.0-10.5)
[2017-06-07 05:32] LABS: ANION GAP 7 (5-19); BLOOD UREA NITROGEN 4 mg/dL (7-20); CALCIUM 8.8 mg/dL (8.4-10.2); CARBON DIOXIDE 34 mmol/L (22-30); CHLORIDE 98 mmol/L (98-107); GLUCOSE 86 mg/dL (75-110); POTASSIUM 3.5 mmol/L (3.6-5.0); SODIUM 138.5 mmol/L (137-145)
[2017-06-07] MEDS ORDERED: LANSOPRAZOLE 30 MG TAB.RAP.DR PO SCH (06:00)
[2017-06-07] MEDS ORDERED: POTASSI CL 20 MEQ/50 ML RIDER 20 MEQ/50 ML RTUPB IV ONE (08:30)
--- NOTE | 2017-06-07 08:43 | PDOC PROGRESS REPORT ---
Subjective Progress Note for:: 06/07/17 Subjective:: Patient is currently doing fair She has denied any chest pain denied any shortness of the breath And underwent for the endoscopy yesterday was all stable and seen by the surgery and suggest that patients probably a small amount more frequently with gas x on continues to PPI Patient's OG tube is out currently feel better Reason For Visit: ABD PAIN, ILLEUS Physical Exam Vital Signs: Temp Pulse Resp BP Pulse Ox 98.3 F 80 20 130/63 H 100 06/07/17 08:10 06/07/17 08:10 06/07/17 08:10 06/07/17 08:10 06/07/17 08:10 Intake & Output 06/06/17 06/07/17 06/08/17 06:59 06:59 06:59 Intake Total 1780 3331 Output Total 1360 2100 Balance 420 1231 Weight 64.6 kg 65.2 kg General appearance: PRESENT: no acute distress, well-developed, well-nourished Head exam: PRESENT: atraumatic, normocephalic Eye exam: PRESENT: conjunctiva pink, EOMI, PERRLA. ABSENT: scleral icterus Ear exam: PRESENT: normal external ear exam Mouth exam: PRESENT: moist, tongue midline Neck exam: PRESENT: full ROM. ABSENT: carotid bruit, JVD, lymphadenopathy, thyromegaly Respiratory exam: PRESENT: clear to auscultation wilfredo Cardiovascular exam: PRESENT: RRR. ABSENT: diastolic murmur, rubs, systolic murmur Pulses: PRESENT: normal dorsalis pedis pul, +2 pedal pulses bilateral Vascular exam: PRESENT: normal capillary refill GI/Abdominal exam: PRESENT: normal bowel sounds, soft. ABSENT: distended, guarding, mass, organolmegaly, rebound, tenderness Rectal exam: PRESENT: deferred Extremities exam: ABSENT: pedal edema Neurological exam: PRESENT: alert, awake, oriented to person, oriented to place , oriented to time, oriented to situation, CN II-XII grossly intact. ABSENT: motor sensory deficit Psychiatric exam: PRESENT: appropriate affect, normal mood. ABSENT: homicidal ideation, suicidal ideation Skin exam: PRESENT: dry, intact, warm. ABSENT: cyanosis, rash Results Laboratory Results: 06/07/17 04:39 06/07/17 04:39 06/07/17 06/07/17 04:39 04:39 WBC 5.9 RBC 3.90 Hgb 10.6 L Hct 32.7 L MCV 84 MCH 27.0 MCHC 32.3 RDW 16.4 H Plt Count 255 Seg Neutrophils % 69.4 Lymphocytes % 16.7 Monocytes % 11.7 Eosinophils % 1.4 Basophils % 0.8 Absolute Neutrophils 4.1 Absolute Lymphocytes 1.0 Absolute Monocytes 0.7 Absolute Eosinophils 0.1 Absolute Basophils 0.0 Sodium 138.5 Potassium 3.5 L Chloride 98 Carbon Dioxide 34 H Anion Gap 7 BUN 4 L Creatinine 0.37 L Est GFR ( Amer) > 60 Est GFR (Non-Af Amer) > 60 Glucose 86 Calcium 8.8 Impressions: Abdomen/Pelvis CT 06/04/17 00:00 IMPRESSION: 1. THERE IS PROMINENCE OF THE RENAL PELVIS OF BOTH KIDNEYS WHICH IS A CHRONIC FINDING. PROMINENCE OF THE RIGHT RENAL PELVIS IS IMPROVED COMPARED TO THE PRIOR STUDY IN JANUARY 2015. THIS MAY BE AN EXTRARENAL PELVIS OR MILD URETEROPELVIC JUNCTION OBSTRUCTION. 2. NO OTHER SIGNIFICANT OR ACUTE FINDING IN THE ABDOMEN OR PELVIS ON CT SCAN WITH IV CONTRAST. Chest X-Ray 06/04/17 15:18 IMPRESSION: There appear to be mild chronic lung changes with no acute cardiopulmonary disease. KUB X-Ray 06/06/17 00:00 IMPRESSION: NO RADIOGRAPHIC EVIDENCE FOR ACUTE ABDOMINAL DISEASE. Assessment & Plan - Diagnosis (1) Ileus Is this a current diagnosis for this admission?: Yes Plan: Currently resolving will advance the diet (2) Abdominal pain Qualifiers: Abdominal location: epigastric Qualified Code(s): R10.13 - Epigastric pain Is this a current diagnosis for this admission?: Yes Plan: Due to the above conditions currently resolving with advancing the diet (3) COPD (chronic obstructive pulmonary disease) Qualifiers: COPD type: chronic bronchitis Is this a current diagnosis for this admission?: Yes Plan: stable (4) Diabetes Qualifiers: Diabetes mellitus type: type 2 Diabetes mellitus complication status: with unspecified complications Is this a current diagnosis for this admission?: Yes Plan: stable (5) Generalized anxiety disorder Is this a current diagnosis for this admission?: Yes Plan: Continues to current medications (6) Hypertension Qualifiers: Hypertension type: essential hypertension Qualified Code(s): I10 - Essential (primary) hypertension Is this a current diagnosis for this admission?: Yes Plan: Continues to clonidine - Time Time Spent with patient: 15-24 minutes Medications reviewed and adjusted accordingly: Yes Anticipated discharge: Other Within: within 48 hours - Inpatient Certification Medical Necessity: Need Close Monitoring Due to Risk of Patient Decompensation Post Hospital Care: D/C Air And Water Tester Documentation - Plan Summary Plan Summary: At the will try to advancing the diet continues to the Gas-X and the MiraLAX and the PPI and if the patient's tolerating the p.o. intake is good discharge to the assisted living facility discussed with the patient and the family on the bedside
[2017-06-07] MEDS: TIOTROPIUM BROMIDE DPI 5 CAP/KIT (18 MCG/CAP) IH SCH (08:48)
[2017-06-07] MEDS: IPRATROPIUM/ALBUTEROL 0.5-2.5 MG/3 ML AMPUL NEB SCH ×3 (08:56→19:52)
[2017-06-07] MEDS: POLYETHYLENE GLYCOL 3350 POWDER 17 GM/1 PACKET PO SCH (10:25)
[2017-06-07] MEDS: ENOXAPARIN SODIUM INJ 40 MG/0.4 ML DISP.SYRIN SUBCUT SCH (10:25)
[2017-06-07] MEDS: MIRTAZAPINE 15 MG TABLET PO SCH (10:28)
[2017-06-07] MEDS: ROFLUMILAST 500 MCG TABLET PO SCH (10:28)
[2017-06-07] MEDS: SERTRALINE HCL 50 MG TABLET PO SCH (10:28)
[2017-06-07] MEDS: PREDNISONE 5 MG TABLET PO SCH (10:28)
[2017-06-07] MEDS: QUETIAPINE FUMARATE 100 MG TABLET PO SCH (10:28)
[2017-06-07] MEDS: CLONIDINE HCL 0.1 MG TABLET PO SCH (10:28)
[2017-06-07] MEDS: LANSOPRAZOLE 30 MG TAB.RAP.DR PO SCH (16:05)
--- NOTE | 2017-06-07 16:36 | PDOC PROGRESS REPORT ---
Subjective Progress Note for:: 06/07/17 Subjective:: patient underwent EGD yesterday patient was passing flatus post procedure ? if her ileus has resolved patient has a Kassie fundoplication she will not be chantell to burp or throw up, her symptoms of abdominal distension likely due to her ileus Reason For Visit: ABD PAIN, ILLEUS Physical Exam Vital Signs: Temp Pulse Resp BP Pulse Ox 98.3 F 93 16 97/56 L 98 06/07/17 12:08 06/07/17 13:59 06/07/17 13:59 06/07/17 12:08 06/07/17 13:59 Intake & Output 06/06/17 06/07/17 06/08/17 06:59 06:59 06:59 Intake Total 1780 3331 222 Output Total 1360 2100 600 Balance 420 1231 -378 Weight 64.6 kg 65.2 kg General appearance: PRESENT: no acute distress, well-developed, well-nourished Head exam: PRESENT: atraumatic, normocephalic Eye exam: PRESENT: EOMI, PERRLA. ABSENT: nystagmus, periorbital swelling, scleral icterus Mouth exam: PRESENT: moist, neck supple Throat exam: ABSENT: tonsillar exudate, tonsillogmegaly Neck exam: ABSENT: meningismus, tenderness, thyromegaly Respiratory exam: PRESENT: symmetrical, unlabored. ABSENT: tachypnea, wheezes Cardiovascular exam: PRESENT: RRR, +S1, +S2 GI/Abdominal exam: PRESENT: distended, soft. ABSENT: rebound, rigid Extremities exam: ABSENT: joint swelling Musculoskeletal exam: PRESENT: full ROM Neurological exam: PRESENT: oriented to time, oriented to situation, CN II-XII grossly intact Psychiatric exam: PRESENT: appropriate affect Focused psych exam: ABSENT: restlessness Skin exam: PRESENT: normal color. ABSENT: mottled, pallor, petechiae, urticaria , vesicles Results Laboratory Results: 06/07/17 04:39 06/07/17 04:39 06/07/17 06/07/17 04:39 04:39 WBC 5.9 RBC 3.90 Hgb 10.6 L Hct 32.7 L MCV 84 MCH 27.0 MCHC 32.3 RDW 16.4 H Plt Count 255 Seg Neutrophils % 69.4 Lymphocytes % 16.7 Monocytes % 11.7 Eosinophils % 1.4 Basophils % 0.8 Absolute Neutrophils 4.1 Absolute Lymphocytes 1.0 Absolute Monocytes 0.7 Absolute Eosinophils 0.1 Absolute Basophils 0.0 Sodium 138.5 Potassium 3.5 L Chloride 98 Carbon Dioxide 34 H Anion Gap 7 BUN 4 L Creatinine 0.37 L Est GFR ( Amer) > 60 Est GFR (Non-Af Amer) > 60 Glucose 86 Calcium 8.8 Impressions: Abdomen/Pelvis CT 06/04/17 00:00 IMPRESSION: 1. THERE IS PROMINENCE OF THE RENAL PELVIS OF BOTH KIDNEYS WHICH IS A CHRONIC FINDING. PROMINENCE OF THE RIGHT RENAL PELVIS IS IMPROVED COMPARED TO THE PRIOR STUDY IN JANUARY 2015. THIS MAY BE AN EXTRARENAL PELVIS OR MILD URETEROPELVIC JUNCTION OBSTRUCTION. 2. NO OTHER SIGNIFICANT OR ACUTE FINDING IN THE ABDOMEN OR PELVIS ON CT SCAN WITH IV CONTRAST. Chest X-Ray 06/04/17 15:18 IMPRESSION: There appear to be mild chronic lung changes with no acute cardiopulmonary disease. KUB X-Ray 06/06/17 00:00 IMPRESSION: NO RADIOGRAPHIC EVIDENCE FOR ACUTE ABDOMINAL DISEASE. Assessment & Plan - Diagnosis (1) Abdominal pain Qualifiers: Abdominal location: epigastric Qualified Code(s): R10.13 - Epigastric pain Is this a current diagnosis for this admission?: Yes (2) Ileus Is this a current diagnosis for this admission?: Yes Plan: EGD negative, biopsies are negative Gas X most likely a good option will see how she does will follow up as outpatient no post procedure complications are noted - Time Time Spent with patient: 15-24 minutes
[2017-06-07] MEDS: MONTELUKAST SODIUM 10 MG TABLET PO SCH (18:22)
[2017-06-07] MEDS: INSULIN LISPRO 100 UNIT/ML 3 ML VIAL SUBCUT PRN (18:22)
[2017-06-07] MEDS: ATORVASTATIN CALCIUM 20 MG TABLET PO SCH (21:01)
[2017-06-07] MEDS: ZOLPIDEM TARTRATE 5 MG TABLET PO SCH (21:01)
[2017-06-07] MEDS: CYCLOBENZAPRINE HCL 10 MG TABLET PO SCH (21:01)
[2017-06-08] MEDS: HYDROMORPHONE HCL INJ/PF 2 MG/ML AMPULE IV PRN (02:32)
[2017-06-08] MEDS: NORMAL SALINE 1000 ML 1,000 ML IV PRN ×2 (02:34→21:50)
[2017-06-08] MEDS: LEVOTHYROXINE SODIUM 0.025 MG TABLET PO SCH (05:28)
[2017-06-08] MEDS: LANSOPRAZOLE 30 MG TAB.RAP.DR PO SCH ×2 (05:28→16:12)
[2017-06-08] MEDS: GABAPENTIN 100 MG CAPSULE PO SCH ×3 (05:28→21:46)
[2017-06-08] MEDS: LORAZEPAM 1 MG TABLET PO PRN ×2 (05:30→16:12)
[2017-06-08 05:54] LABS: BLOOD UREA NITROGEN 4 mg/dL (7-20); CALCIUM 8.8 mg/dL (8.4-10.2); CARBON DIOXIDE 37 mmol/L (22-30); CHLORIDE 101 mmol/L (98-107); GLUCOSE 84 mg/dL (75-110); POTASSIUM 3.6 mmol/L (3.6-5.0)
[2017-06-08 06:00] LABS: SODIUM 141.3 mmol/L (137-145)
[2017-06-08 06:04] LABS: ANION GAP 3 (5-19)
[2017-06-08] MEDS: IPRATROPIUM/ALBUTEROL 0.5-2.5 MG/3 ML AMPUL NEB SCH ×3 (08:10→19:38)
[2017-06-08] MEDS: POLYETHYLENE GLYCOL 3350 POWDER 17 GM/1 PACKET PO SCH (09:32)
[2017-06-08] MEDS: SERTRALINE HCL 50 MG TABLET PO SCH (09:33)
[2017-06-08] MEDS: CLONIDINE HCL 0.1 MG TABLET PO SCH (09:34)
[2017-06-08] MEDS: MIRTAZAPINE 15 MG TABLET PO SCH (09:34)
[2017-06-08] MEDS: QUETIAPINE FUMARATE 100 MG TABLET PO SCH (09:34)
[2017-06-08] MEDS: PREDNISONE 5 MG TABLET PO SCH (09:34)
[2017-06-08] MEDS: TIOTROPIUM BROMIDE DPI 5 CAP/KIT (18 MCG/CAP) IH SCH (09:35)
[2017-06-08] MEDS: ROFLUMILAST 500 MCG TABLET PO SCH (09:35)
[2017-06-08] MEDS: ENOXAPARIN SODIUM INJ 40 MG/0.4 ML DISP.SYRIN SUBCUT SCH (09:36)
[2017-06-08] MEDS: HYDROMORPHONE HCL 2 MG TABLET PO PRN ×2 (13:36→19:38)
--- NOTE | 2017-06-08 13:44 | PDOC PROGRESS REPORT ---
Subjective Progress Note for:: 06/08/17 Subjective:: She was seen by the bedside, she has ileus, complain of abdominal pain Reason For Visit: ABD PAIN, ILLEUS Physical Exam Vital Signs: Temp Pulse Resp BP Pulse Ox 99.1 F 98 20 114/50 L 99 06/08/17 12:11 06/08/17 12:11 06/08/17 12:11 06/08/17 12:11 06/08/17 12:11 Intake & Output 06/07/17 06/08/17 06/09/17 06:59 06:59 07:59 Intake Total 3331 2418 Output Total 2100 1850 Balance 1231 568 Weight 65.2 kg 67.7 kg General appearance: PRESENT: no acute distress Eye exam: PRESENT: PERRLA Respiratory exam: PRESENT: clear to auscultation wilfredo Cardiovascular exam: PRESENT: +S1, +S2 GI/Abdominal exam: PRESENT: soft Neurological exam: PRESENT: alert Results Laboratory Results: 06/07/17 04:39 06/08/17 05:17 06/08/17 05:17 Sodium 141.3 Potassium 3.6 Chloride 101 Carbon Dioxide 37 H Anion Gap 3 L BUN 4 L Creatinine 0.39 L Est GFR ( Amer) > 60 Est GFR (Non-Af Amer) > 60 Glucose 84 Calcium 8.8 Impressions: Abdomen/Pelvis CT 06/04/17 00:00 IMPRESSION: 1. THERE IS PROMINENCE OF THE RENAL PELVIS OF BOTH KIDNEYS WHICH IS A CHRONIC FINDING. PROMINENCE OF THE RIGHT RENAL PELVIS IS IMPROVED COMPARED TO THE PRIOR STUDY IN JANUARY 2015. THIS MAY BE AN EXTRARENAL PELVIS OR MILD URETEROPELVIC JUNCTION OBSTRUCTION. 2. NO OTHER SIGNIFICANT OR ACUTE FINDING IN THE ABDOMEN OR PELVIS ON CT SCAN WITH IV CONTRAST. Chest X-Ray 06/04/17 15:18 IMPRESSION: There appear to be mild chronic lung changes with no acute cardiopulmonary disease. KUB X-Ray 06/06/17 00:00 IMPRESSION: NO RADIOGRAPHIC EVIDENCE FOR ACUTE ABDOMINAL DISEASE. Assessment & Plan - Diagnosis (1) Ileus Is this a current diagnosis for this admission?: Yes Plan: Continue treatment
[2017-06-08] MEDS ORDERED: TAMSULOSIN HCL 0.4 MG CAP.SR.24H PO ONE (14:00)
[2017-06-08] MEDS: INSULIN LISPRO 100 UNIT/ML 3 ML VIAL SUBCUT PRN (17:41)
[2017-06-08] MEDS: MONTELUKAST SODIUM 10 MG TABLET PO SCH (17:41)
[2017-06-08] MEDS ORDERED: TUBERCULIN,PURIF.PROT.DERIV. 5 TU/0.1 ML TEST 1 ML VIAL ID ONE ×2 (18:00→18:53)
[2017-06-08] MEDS: CYCLOBENZAPRINE HCL 10 MG TABLET PO SCH (21:45)
[2017-06-08] MEDS: ZOLPIDEM TARTRATE 5 MG TABLET PO SCH (21:45)
[2017-06-08] MEDS: ATORVASTATIN CALCIUM 20 MG TABLET PO SCH (21:46)
[2017-06-08] MEDS: SIMETHICONE 80 MG TAB.CHEW PO PRN (21:49)
[2017-06-09] MEDS: HYDROMORPHONE HCL 2 MG TABLET PO PRN ×4 (00:54→15:43)
[2017-06-09] MEDS: LORAZEPAM 1 MG TABLET PO PRN (04:03)
[2017-06-09] MEDS: LEVOTHYROXINE SODIUM 0.025 MG TABLET PO SCH (05:34)
[2017-06-09] MEDS: LANSOPRAZOLE 30 MG TAB.RAP.DR PO SCH ×2 (05:34→18:19)
[2017-06-09] MEDS: GABAPENTIN 100 MG CAPSULE PO SCH ×3 (05:34→21:55)
[2017-06-09] MEDS: IPRATROPIUM/ALBUTEROL 0.5-2.5 MG/3 ML AMPUL NEB SCH ×3 (07:59→19:50)
[2017-06-09] MEDS: POLYETHYLENE GLYCOL 3350 POWDER 17 GM/1 PACKET PO SCH (09:51)
[2017-06-09] MEDS: TIOTROPIUM BROMIDE DPI 5 CAP/KIT (18 MCG/CAP) IH SCH (09:51)
[2017-06-09] MEDS: CLONIDINE HCL 0.1 MG TABLET PO SCH (09:52)
[2017-06-09] MEDS: SERTRALINE HCL 50 MG TABLET PO SCH (09:52)
[2017-06-09] MEDS: MIRTAZAPINE 15 MG TABLET PO SCH (09:52)
[2017-06-09] MEDS: PREDNISONE 5 MG TABLET PO SCH (09:53)
[2017-06-09] MEDS: QUETIAPINE FUMARATE 100 MG TABLET PO SCH (09:53)
[2017-06-09] MEDS: ENOXAPARIN SODIUM INJ 40 MG/0.4 ML DISP.SYRIN SUBCUT SCH (09:54)
[2017-06-09] MEDS: ROFLUMILAST 500 MCG TABLET PO SCH (10:05)
[2017-06-09] MEDS: ONDANSETRON HCL INJ/PF 4 MG/2 ML SDV IV PRN (12:28)
[2017-06-09] MEDS: TAMSULOSIN HCL 0.4 MG CAP.SR.24H PO SCH (12:28)
--- NOTE | 2017-06-09 12:29 | PDOC PROGRESS REPORT ---
Subjective Progress Note for:: 06/09/17 Subjective:: still complaining of pain in mid- abdomen s/p Nate likely has intestinal distension due to inability to burp, needs to be on a PPI previous colonoscopy in the past may benefit from anti-spasmodic allow ileus to resolve trial of Bentyl biopsies on recent EGD is negative Reason For Visit: ABD PAIN, ILLEUS Physical Exam Vital Signs: Temp Pulse Resp BP Pulse Ox 98.5 F 97 16 127/80 H 98 06/09/17 07:19 06/09/17 07:59 06/09/17 07:59 06/09/17 07:19 06/09/17 07:59 Intake & Output 06/08/17 06/09/17 06/10/17 05:59 06:59 06:59 Intake Total Output Total Balance Weight General appearance: PRESENT: no acute distress, well-developed, well-nourished Head exam: PRESENT: atraumatic, normocephalic Eye exam: PRESENT: conjunctiva pink, EOMI, PERRLA. ABSENT: scleral icterus Mouth exam: PRESENT: moist, tongue midline Throat exam: ABSENT: tonsillar exudate, tonsillogmegaly Respiratory exam: PRESENT: symmetrical, unlabored. ABSENT: accessory muscle use , tachypnea, wheezes Cardiovascular exam: PRESENT: RRR - d, +S1, +S2 GI/Abdominal exam: PRESENT: diminished bowel sounds, distended, soft. ABSENT: rebound, rigid Extremities exam: ABSENT: joint swelling Musculoskeletal exam: PRESENT: full ROM Neurological exam: PRESENT: oriented to time, oriented to situation, CN II-XII grossly intact Skin exam: PRESENT: normal color. ABSENT: mottled, urticaria, vesicles Results Laboratory Results: 06/07/17 04:39 06/08/17 05:17 Impressions: Abdomen/Pelvis CT 06/04/17 00:00 IMPRESSION: 1. THERE IS PROMINENCE OF THE RENAL PELVIS OF BOTH KIDNEYS WHICH IS A CHRONIC FINDING. PROMINENCE OF THE RIGHT RENAL PELVIS IS IMPROVED COMPARED TO THE PRIOR STUDY IN JANUARY 2015. THIS MAY BE AN EXTRARENAL PELVIS OR MILD URETEROPELVIC JUNCTION OBSTRUCTION. 2. NO OTHER SIGNIFICANT OR ACUTE FINDING IN THE ABDOMEN OR PELVIS ON CT SCAN WITH IV CONTRAST. Chest X-Ray 06/04/17 15:18 IMPRESSION: There appear to be mild chronic lung changes with no acute cardiopulmonary disease. KUB X-Ray 06/06/17 00:00 IMPRESSION: NO RADIOGRAPHIC EVIDENCE FOR ACUTE ABDOMINAL DISEASE. Assessment & Plan - Diagnosis (1) Abdominal pain Qualifiers: Abdominal location: epigastric Qualified Code(s): R10.13 - Epigastric pain Is this a current diagnosis for this admission?: Yes Plan: negative EGD with biospies, no ulcer Nate is intact ileus is slowly resolving patient had nornal colonoscopy in the past OOB and needs to increase motility, rehab trial of Bentyl to see if that would help no further planned GI eval during this visit (2) Ileus Is this a current diagnosis for this admission?: Yes - Time Time Spent with patient: 15-24 minutes
--- NOTE | 2017-06-09 12:57 | PDOC PROGRESS REPORT ---
Subjective Progress Note for:: 06/09/17 Subjective:: Patient is seen by the bedside no new complaints Reason For Visit: ABD PAIN, ILLEUS Physical Exam Vital Signs: Temp Pulse Resp BP Pulse Ox 98.1 F 86 20 130/68 H 97 06/09/17 11:38 06/09/17 11:38 06/09/17 11:38 06/09/17 11:38 06/09/17 11:38 Intake & Output 06/08/17 06/09/17 06/10/17 05:59 06:59 06:59 Intake Total Output Total Balance Weight General appearance: PRESENT: no acute distress Eye exam: PRESENT: PERRLA Respiratory exam: PRESENT: clear to auscultation wilfredo Cardiovascular exam: PRESENT: +S1, +S2 Neurological exam: PRESENT: alert, CN II-XII grossly intact Results Laboratory Results: 06/07/17 04:39 06/08/17 05:17 Impressions: Abdomen/Pelvis CT 06/04/17 00:00 IMPRESSION: 1. THERE IS PROMINENCE OF THE RENAL PELVIS OF BOTH KIDNEYS WHICH IS A CHRONIC FINDING. PROMINENCE OF THE RIGHT RENAL PELVIS IS IMPROVED COMPARED TO THE PRIOR STUDY IN JANUARY 2015. THIS MAY BE AN EXTRARENAL PELVIS OR MILD URETEROPELVIC JUNCTION OBSTRUCTION. 2. NO OTHER SIGNIFICANT OR ACUTE FINDING IN THE ABDOMEN OR PELVIS ON CT SCAN WITH IV CONTRAST. Chest X-Ray 06/04/17 15:18 IMPRESSION: There appear to be mild chronic lung changes with no acute cardiopulmonary disease. KUB X-Ray 06/06/17 00:00 IMPRESSION: NO RADIOGRAPHIC EVIDENCE FOR ACUTE ABDOMINAL DISEASE. Assessment & Plan - Diagnosis (1) Ileus Is this a current diagnosis for this admission?: Yes Plan: Continue treatment
[2017-06-09] MEDS: MONTELUKAST SODIUM 10 MG TABLET PO SCH (18:19)
[2017-06-09] MEDS: NORMAL SALINE 1000 ML 1,000 ML IV PRN (18:47)
[2017-06-09] MEDS: CYCLOBENZAPRINE HCL 10 MG TABLET PO SCH (21:55)
[2017-06-09] MEDS: ATORVASTATIN CALCIUM 20 MG TABLET PO SCH (21:55)
[2017-06-09] MEDS: ZOLPIDEM TARTRATE 5 MG TABLET PO SCH (21:55)
[2017-06-10] MEDS: LORAZEPAM 1 MG TABLET PO PRN ×3 (01:40→20:17)
[2017-06-10] MEDS: LEVOTHYROXINE SODIUM 0.025 MG TABLET PO SCH (05:59)
[2017-06-10] MEDS: HYDROMORPHONE HCL 2 MG TABLET PO PRN ×4 (05:59→22:50)
[2017-06-10] MEDS: LANSOPRAZOLE 30 MG TAB.RAP.DR PO SCH ×2 (05:59→17:00)
[2017-06-10] MEDS: GABAPENTIN 100 MG CAPSULE PO SCH ×3 (05:59→22:00)
[2017-06-10] MEDS: IPRATROPIUM/ALBUTEROL 0.5-2.5 MG/3 ML AMPUL NEB SCH ×3 (08:22→19:46)
[2017-06-10] MEDS: MIRTAZAPINE 15 MG TABLET PO SCH (09:37)
[2017-06-10] MEDS: POLYETHYLENE GLYCOL 3350 POWDER 17 GM/1 PACKET PO SCH (09:37)
[2017-06-10] MEDS: QUETIAPINE FUMARATE 100 MG TABLET PO SCH (09:38)
[2017-06-10] MEDS: PREDNISONE 5 MG TABLET PO SCH (09:38)
[2017-06-10] MEDS: CLONIDINE HCL 0.1 MG TABLET PO SCH (09:38)
[2017-06-10] MEDS: ROFLUMILAST 500 MCG TABLET PO SCH (09:38)
[2017-06-10] MEDS: ENOXAPARIN SODIUM INJ 40 MG/0.4 ML DISP.SYRIN SUBCUT SCH (09:39)
[2017-06-10] MEDS: SERTRALINE HCL 50 MG TABLET PO SCH (09:39)
[2017-06-10] MEDS: TIOTROPIUM BROMIDE DPI 5 CAP/KIT (18 MCG/CAP) IH SCH (09:39)
--- NOTE | 2017-06-10 10:51 | RADIOLOGY REPORT (SQ) ---
EXAM DESCRIPTION: KUB/ABDOMEN (SINGLE VIEW) COMPLETED DATE/TIME: 06/10/2017 10:20 am REASON FOR STUDY: ileus COMPARISON: 06/07/2015 NUMBER OF VIEWS: One view. TECHNIQUE: Supine radiographic image of the abdomen acquired. LIMITATIONS: None. FINDINGS: BOWEL GAS PATTERN: Areas identified in nondistended large and small bowel loops. A modera te amount a gas and fecal material is identified throughout the colon CALCIFICATIONS: No suspicious calcifications. SOFT TISSUES: No gross mass or suggestion of organomegaly. HARDWARE: Catheter is identified overlying the pelvis presumably representing a Tenorio catheter. Surg ical clips are again identified in the right upper quadrant BONES: No acute fracture. No worrisome bone lesions. OTHER: No other significant finding. IMPRESSION: NO RADIOGRAPHIC EVIDENCE FOR ACUTE ABDOMINAL DISEASE. TECHNICAL DOCUMENTATION: JOB ID: [id number] [employer]- All Rights Reserved Reading location - IP/workstation name: [email or web address]
--- NOTE | 2017-06-10 12:09 | PDOC PROGRESS REPORT ---
Subjective Progress Note for:: 06/10/17 Subjective:: Patient is currently doing well no no added to Patient's denied any chest pain denied any shortness of the breath Patient still have some abdominal discomfort Reason For Visit: ABD PAIN, ILLEUS Physical Exam Vital Signs: Temp Pulse Resp BP Pulse Ox 98.3 F 90 20 125/63 91 L 06/10/17 07:25 06/10/17 08:24 06/10/17 08:24 06/10/17 07:25 06/10/17 08:24 Intake & Output 06/09/17 06/10/17 06/11/17 06:59 06:59 06:59 Intake Total 2527 Output Total 3975 Balance -1448 Weight 68.9 kg General appearance: PRESENT: no acute distress, well-developed, well-nourished Head exam: PRESENT: atraumatic, normocephalic Eye exam: PRESENT: conjunctiva pink, EOMI, PERRLA. ABSENT: scleral icterus Ear exam: PRESENT: normal external ear exam Mouth exam: PRESENT: moist, tongue midline Neck exam: PRESENT: full ROM. ABSENT: carotid bruit, JVD, lymphadenopathy, thyromegaly Respiratory exam: PRESENT: clear to auscultation wilfredo Cardiovascular exam: PRESENT: RRR. ABSENT: diastolic murmur, rubs, systolic murmur Pulses: PRESENT: normal dorsalis pedis pul, +2 pedal pulses bilateral Vascular exam: PRESENT: normal capillary refill GI/Abdominal exam: PRESENT: normal bowel sounds, soft. ABSENT: distended, guarding, mass, organolmegaly, rebound, tenderness Rectal exam: PRESENT: deferred Extremities exam: ABSENT: pedal edema Neurological exam: PRESENT: alert, awake, oriented to person, oriented to place , oriented to time, oriented to situation, CN II-XII grossly intact. ABSENT: motor sensory deficit Psychiatric exam: PRESENT: appropriate affect, normal mood. ABSENT: homicidal ideation, suicidal ideation Skin exam: PRESENT: dry, intact, warm. ABSENT: cyanosis, rash Results Laboratory Results: 06/07/17 04:39 06/08/17 05:17 Impressions: Abdomen/Pelvis CT 06/04/17 00:00 IMPRESSION: 1. THERE IS PROMINENCE OF THE RENAL PELVIS OF BOTH KIDNEYS WHICH IS A CHRONIC FINDING. PROMINENCE OF THE RIGHT RENAL PELVIS IS IMPROVED COMPARED TO THE PRIOR STUDY IN JANUARY 2015. THIS MAY BE AN EXTRARENAL PELVIS OR MILD URETEROPELVIC JUNCTION OBSTRUCTION. 2. NO OTHER SIGNIFICANT OR ACUTE FINDING IN THE ABDOMEN OR PELVIS ON CT SCAN WITH IV CONTRAST. Chest X-Ray 06/04/17 15:18 IMPRESSION: There appear to be mild chronic lung changes with no acute cardiopulmonary disease. KUB X-Ray 06/10/17 09:30 IMPRESSION: NO RADIOGRAPHIC EVIDENCE FOR ACUTE ABDOMINAL DISEASE. Assessment & Plan - Diagnosis (1) Ileus Is this a current diagnosis for this admission?: Yes Plan: Currently all resolving (2) Abdominal pain Qualifiers: Abdominal location: epigastric Qualified Code(s): R10.13 - Epigastric pain Is this a current diagnosis for this admission?: Yes Plan: Due to the above conditions currently resolving with advancing the diet (3) COPD (chronic obstructive pulmonary disease) Qualifiers: COPD type: chronic bronchitis Is this a current diagnosis for this admission?: Yes Plan: stable (4) Diabetes Qualifiers: Diabetes mellitus type: type 2 Diabetes mellitus complication status: with unspecified complications Is this a current diagnosis for this admission?: Yes Plan: stable (5) Generalized anxiety disorder Is this a current diagnosis for this admission?: Yes Plan: Continues to current medications (6) Hypertension Qualifiers: Hypertension type: essential hypertension Qualified Code(s): I10 - Essential (primary) hypertension Is this a current diagnosis for this admission?: Yes Plan: Continues to clonidine - Time Time Spent with patient: 15-24 minutes Medications reviewed and adjusted accordingly: Yes Anticipated discharge: Other Within: Other - Inpatient Certification Medical Necessity: Need Close Monitoring Due to Risk of Patient Decompensation Post Hospital Care: D/C Clinical Care Leader Documentation - Plan Summary Plan Summary: Continues to current medications
[2017-06-10] MEDS: TAMSULOSIN HCL 0.4 MG CAP.SR.24H PO SCH (14:10)
[2017-06-10] MEDS: NORMAL SALINE 1000 ML 1,000 ML IV PRN (14:14)
[2017-06-10] MEDS: MONTELUKAST SODIUM 10 MG TABLET PO SCH (17:00)
[2017-06-10] MEDS: CYCLOBENZAPRINE HCL 10 MG TABLET PO SCH (21:59)
[2017-06-10] MEDS: ATORVASTATIN CALCIUM 20 MG TABLET PO SCH (22:00)
[2017-06-10] MEDS: ZOLPIDEM TARTRATE 5 MG TABLET PO SCH (22:00)
[2017-06-11] MEDS: HYDROMORPHONE HCL 2 MG TABLET PO PRN ×3 (04:47→23:43)
[2017-06-11] MEDS: LORAZEPAM 1 MG TABLET PO PRN ×2 (06:05→17:09)
[2017-06-11] MEDS: GABAPENTIN 100 MG CAPSULE PO SCH ×3 (06:05→23:28)
[2017-06-11] MEDS: LANSOPRAZOLE 30 MG TAB.RAP.DR PO SCH ×2 (06:05→17:06)
[2017-06-11] MEDS: LEVOTHYROXINE SODIUM 0.025 MG TABLET PO SCH (06:05)
[2017-06-11] MEDS: IPRATROPIUM/ALBUTEROL 0.5-2.5 MG/3 ML AMPUL NEB SCH ×3 (07:50→19:40)
[2017-06-11] MEDS: TIOTROPIUM BROMIDE DPI 5 CAP/KIT (18 MCG/CAP) IH SCH (08:37)
[2017-06-11] MEDS: POLYETHYLENE GLYCOL 3350 POWDER 17 GM/1 PACKET PO SCH (09:33)
[2017-06-11] MEDS: ENOXAPARIN SODIUM INJ 40 MG/0.4 ML DISP.SYRIN SUBCUT SCH (09:33)
[2017-06-11] MEDS: QUETIAPINE FUMARATE 100 MG TABLET PO SCH (09:34)
[2017-06-11] MEDS: CLONIDINE HCL 0.1 MG TABLET PO SCH (09:35)
[2017-06-11] MEDS: MIRTAZAPINE 15 MG TABLET PO SCH (09:35)
[2017-06-11] MEDS: SERTRALINE HCL 50 MG TABLET PO SCH (09:36)
[2017-06-11] MEDS: ROFLUMILAST 500 MCG TABLET PO SCH (09:36)
[2017-06-11] MEDS: PREDNISONE 5 MG TABLET PO SCH (09:36)
[2017-06-11] MEDS: NORMAL SALINE 1000 ML 1,000 ML IV PRN (09:42)
[2017-06-11] MEDS ORDERED: LACTULOSE SYRUP 20 GM/30 ML UDCUP PO ONE (10:30)
--- NOTE | 2017-06-11 12:21 | PDOC PROGRESS REPORT ---
Subjective Progress Note for:: 06/11/17 Subjective:: Patient is currently doing well Patient still have a some constipation issue Able to eat or drink Reason For Visit: ABD PAIN, ILLEUS Physical Exam Vital Signs: Temp Pulse Resp BP Pulse Ox 98.3 F 96 20 94/52 L 98 06/11/17 11:27 06/11/17 11:27 06/11/17 11:27 06/11/17 11:27 06/11/17 11:27 Intake & Output 06/10/17 06/11/17 06/12/17 06:59 06:59 06:59 Intake Total 2527 3227 Output Total 3970 4301 Balance -9970 -4667 Weight 68.9 kg 66.4 kg General appearance: PRESENT: no acute distress, well-developed, well-nourished Head exam: PRESENT: atraumatic, normocephalic Eye exam: PRESENT: conjunctiva pink, EOMI, PERRLA. ABSENT: scleral icterus Ear exam: PRESENT: normal external ear exam Mouth exam: PRESENT: moist, tongue midline Neck exam: PRESENT: full ROM. ABSENT: carotid bruit, JVD, lymphadenopathy, thyromegaly Respiratory exam: PRESENT: clear to auscultation wilfredo Cardiovascular exam: PRESENT: RRR. ABSENT: diastolic murmur, rubs, systolic murmur Pulses: PRESENT: normal dorsalis pedis pul, +2 pedal pulses bilateral Vascular exam: PRESENT: normal capillary refill GI/Abdominal exam: PRESENT: normal bowel sounds, soft. ABSENT: distended, guarding, mass, organolmegaly, rebound, tenderness Rectal exam: PRESENT: deferred Extremities exam: ABSENT: pedal edema Neurological exam: PRESENT: alert, awake, oriented to person, oriented to place , oriented to time, oriented to situation, CN II-XII grossly intact. ABSENT: motor sensory deficit Psychiatric exam: PRESENT: appropriate affect, normal mood. ABSENT: homicidal ideation, suicidal ideation Skin exam: PRESENT: dry, intact, warm. ABSENT: cyanosis, rash Results Laboratory Results: 06/07/17 04:39 06/08/17 05:17 Impressions: Abdomen/Pelvis CT 06/04/17 00:00 IMPRESSION: 1. THERE IS PROMINENCE OF THE RENAL PELVIS OF BOTH KIDNEYS WHICH IS A CHRONIC FINDING. PROMINENCE OF THE RIGHT RENAL PELVIS IS IMPROVED COMPARED TO THE PRIOR STUDY IN JANUARY 2015. THIS MAY BE AN EXTRARENAL PELVIS OR MILD URETEROPELVIC JUNCTION OBSTRUCTION. 2. NO OTHER SIGNIFICANT OR ACUTE FINDING IN THE ABDOMEN OR PELVIS ON CT SCAN WITH IV CONTRAST. Chest X-Ray 06/04/17 15:18 IMPRESSION: There appear to be mild chronic lung changes with no acute cardiopulmonary disease. KUB X-Ray 06/10/17 09:30 IMPRESSION: NO RADIOGRAPHIC EVIDENCE FOR ACUTE ABDOMINAL DISEASE. Assessment & Plan - Diagnosis (1) Ileus Is this a current diagnosis for this admission?: Yes Plan: Currently all resolving (2) Abdominal pain Qualifiers: Abdominal location: epigastric Qualified Code(s): R10.13 - Epigastric pain Is this a current diagnosis for this admission?: Yes Plan: Due to the above conditions currently resolving with advancing the diet (3) COPD (chronic obstructive pulmonary disease) Qualifiers: COPD type: chronic bronchitis Is this a current diagnosis for this admission?: Yes Plan: stable (4) Diabetes Qualifiers: Diabetes mellitus type: type 2 Diabetes mellitus complication status: with unspecified complications Is this a current diagnosis for this admission?: Yes Plan: stable (5) Generalized anxiety disorder Is this a current diagnosis for this admission?: Yes Plan: Continues to current medications (6) Hypertension Qualifiers: Hypertension type: essential hypertension Qualified Code(s): I10 - Essential (primary) hypertension Is this a current diagnosis for this admission?: Yes Plan: Continues to clonidine - Time Time Spent with patient: 15-24 minutes Medications reviewed and adjusted accordingly: Yes Anticipated discharge: Other Within: within 24 hours, Other - Inpatient Certification Based on my medical assessment, after consideration of the patient's comorbidities, presenting symptoms, or acuity I expect that the services needed warrant INPATIENT care.: Yes I certify that my determination is in accordance with my understanding of Medicare's requirements for reasonable and necessary INPATIENT services [42 CFR 412.3e].: Yes Post Hospital Care: D/C Technical Services Assistant Documentation - Plan Summary Plan Summary: Add the lactulose constipation
[2017-06-11] MEDS: TAMSULOSIN HCL 0.4 MG CAP.SR.24H PO SCH (13:18)
[2017-06-11] MEDS: MONTELUKAST SODIUM 10 MG TABLET PO SCH (17:06)
[2017-06-11] MEDS: SIMETHICONE 80 MG TAB.CHEW PO PRN (17:09)
[2017-06-11] MEDS: DICYCLOMINE HCL 20 MG TABLET PO PRN (19:50)
[2017-06-11] MEDS: ZOLPIDEM TARTRATE 5 MG TABLET PO SCH (23:28)
[2017-06-11] MEDS: CYCLOBENZAPRINE HCL 10 MG TABLET PO SCH (23:29)
[2017-06-11] MEDS: ATORVASTATIN CALCIUM 20 MG TABLET PO SCH (23:29)
[2017-06-12] MEDS: NORMAL SALINE 1000 ML 1,000 ML IV PRN ×2 (04:42→22:01)
[2017-06-12] MEDS: LEVOTHYROXINE SODIUM 0.025 MG TABLET PO SCH (05:02)
[2017-06-12] MEDS: LANSOPRAZOLE 30 MG TAB.RAP.DR PO SCH ×2 (05:02→16:15)
[2017-06-12] MEDS: GABAPENTIN 100 MG CAPSULE PO SCH ×3 (05:02→21:51)
[2017-06-12] MEDS: LORAZEPAM 1 MG TABLET PO PRN (06:16)
[2017-06-12] MEDS: TIOTROPIUM BROMIDE DPI 5 CAP/KIT (18 MCG/CAP) IH SCH (07:57)
[2017-06-12] MEDS: IPRATROPIUM/ALBUTEROL 0.5-2.5 MG/3 ML AMPUL NEB SCH ×3 (08:57→20:06)
[2017-06-12] MEDS: ENOXAPARIN SODIUM INJ 40 MG/0.4 ML DISP.SYRIN SUBCUT SCH (09:17)
[2017-06-12] MEDS: POLYETHYLENE GLYCOL 3350 POWDER 17 GM/1 PACKET PO SCH (09:18)
[2017-06-12] MEDS: LACTULOSE SYRUP 20 GM/30 ML UDCUP PO SCH (09:18)
[2017-06-12] MEDS: SERTRALINE HCL 50 MG TABLET PO SCH (09:19)
[2017-06-12] MEDS: QUETIAPINE FUMARATE 100 MG TABLET PO SCH (09:19)
[2017-06-12] MEDS: ROFLUMILAST 500 MCG TABLET PO SCH (09:20)
[2017-06-12] MEDS: MIRTAZAPINE 15 MG TABLET PO SCH (09:20)
[2017-06-12] MEDS: PREDNISONE 5 MG TABLET PO SCH (09:20)
[2017-06-12] MEDS: HYDROMORPHONE HCL 2 MG TABLET PO PRN ×2 (09:24→16:15)
--- NOTE | 2017-06-12 10:21 | PDOC PROGRESS REPORT ---
Subjective Progress Note for:: 06/12/17 Subjective:: Patient is currently doing fair Patient still does not have any bowel movement Patient's denied any chest pain denied any shortness of the breath Mild abdominal discomfort but other than that patients did some physical therapy yesterday still unable to move much Reason For Visit: ABD PAIN, ILLEUS Physical Exam Vital Signs: Temp Pulse Resp BP Pulse Ox 99.2 F 87 20 110/60 100 06/12/17 07:43 06/12/17 07:43 06/12/17 07:43 06/12/17 08:02 06/12/17 07:43 Intake & Output 06/11/17 06/12/17 06/13/17 06:59 06:59 06:59 Intake Total 3227 2408 Output Total 4900 1050 Balance -1673 1358 Weight 66.4 kg 68.5 kg General appearance: PRESENT: no acute distress, well-developed, well-nourished Head exam: PRESENT: atraumatic, normocephalic Eye exam: PRESENT: conjunctiva pink, EOMI, PERRLA. ABSENT: scleral icterus Ear exam: PRESENT: normal external ear exam Mouth exam: PRESENT: moist, tongue midline Neck exam: PRESENT: full ROM. ABSENT: carotid bruit, JVD, lymphadenopathy, thyromegaly Respiratory exam: PRESENT: clear to auscultation wilfredo Cardiovascular exam: PRESENT: RRR. ABSENT: diastolic murmur, rubs, systolic murmur Pulses: PRESENT: normal dorsalis pedis pul, +2 pedal pulses bilateral Vascular exam: PRESENT: normal capillary refill GI/Abdominal exam: PRESENT: normal bowel sounds, soft. ABSENT: distended, guarding, mass, organolmegaly, rebound, tenderness Rectal exam: PRESENT: deferred Extremities exam: ABSENT: pedal edema Neurological exam: PRESENT: alert, awake, oriented to person, oriented to place , oriented to time, oriented to situation, CN II-XII grossly intact. ABSENT: motor sensory deficit Psychiatric exam: PRESENT: appropriate affect, normal mood. ABSENT: homicidal ideation, suicidal ideation Skin exam: PRESENT: dry, intact, warm. ABSENT: cyanosis, rash Results Laboratory Results: 06/07/17 04:39 06/08/17 05:17 Impressions: Abdomen/Pelvis CT 06/04/17 00:00 IMPRESSION: 1. THERE IS PROMINENCE OF THE RENAL PELVIS OF BOTH KIDNEYS WHICH IS A CHRONIC FINDING. PROMINENCE OF THE RIGHT RENAL PELVIS IS IMPROVED COMPARED TO THE PRIOR STUDY IN JANUARY 2015. THIS MAY BE AN EXTRARENAL PELVIS OR MILD URETEROPELVIC JUNCTION OBSTRUCTION. 2. NO OTHER SIGNIFICANT OR ACUTE FINDING IN THE ABDOMEN OR PELVIS ON CT SCAN WITH IV CONTRAST. Chest X-Ray 06/04/17 15:18 IMPRESSION: There appear to be mild chronic lung changes with no acute cardiopulmonary disease. KUB X-Ray 06/10/17 09:30 IMPRESSION: NO RADIOGRAPHIC EVIDENCE FOR ACUTE ABDOMINAL DISEASE. Assessment & Plan - Diagnosis (1) Ileus Is this a current diagnosis for this admission?: Yes Plan: Currently all resolving (2) Abdominal pain Qualifiers: Abdominal location: epigastric Qualified Code(s): R10.13 - Epigastric pain Is this a current diagnosis for this admission?: Yes Plan: Due to the above conditions currently resolving with advancing the diet (3) COPD (chronic obstructive pulmonary disease) Qualifiers: COPD type: chronic bronchitis Is this a current diagnosis for this admission?: Yes Plan: stable (4) Diabetes Qualifiers: Diabetes mellitus type: type 2 Diabetes mellitus complication status: with unspecified complications Is this a current diagnosis for this admission?: Yes Plan: stable (5) Generalized anxiety disorder Is this a current diagnosis for this admission?: Yes Plan: Continues to current medications (6) Hypertension Qualifiers: Hypertension type: essential hypertension Qualified Code(s): I10 - Essential (primary) hypertension Is this a current diagnosis for this admission?: Yes Plan: Continues to clonidine - Time Time Spent with patient: 15-24 minutes Medications reviewed and adjusted accordingly: Yes Anticipated discharge: Other Within: when bed available, Other - Inpatient Certification Medical Necessity: Need Close Monitoring Due to Risk of Patient Decompensation 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
[2017-06-12] MEDS: DICYCLOMINE HCL 20 MG TABLET PO PRN (10:57)
[2017-06-12] MEDS: CLONIDINE HCL 0.1 MG TABLET PO SCH (12:46)
[2017-06-12] MEDS: TAMSULOSIN HCL 0.4 MG CAP.SR.24H PO SCH (13:21)
[2017-06-12] MEDS: MONTELUKAST SODIUM 10 MG TABLET PO SCH (17:12)
[2017-06-12] MEDS: ATORVASTATIN CALCIUM 20 MG TABLET PO SCH (21:51)
[2017-06-12] MEDS: CYCLOBENZAPRINE HCL 10 MG TABLET PO SCH (21:51)
[2017-06-12] MEDS: ZOLPIDEM TARTRATE 5 MG TABLET PO SCH (21:52)
[2017-06-13] MEDS: HYDROMORPHONE HCL 2 MG TABLET PO PRN ×3 (03:16→20:05)
[2017-06-13] MEDS: GABAPENTIN 100 MG CAPSULE PO SCH ×3 (05:47→21:17)
[2017-06-13] MEDS: LEVOTHYROXINE SODIUM 0.025 MG TABLET PO SCH (05:47)
[2017-06-13] MEDS: LANSOPRAZOLE 30 MG TAB.RAP.DR PO SCH ×2 (05:48→18:02)
[2017-06-13] MEDS: LORAZEPAM 1 MG TABLET PO PRN ×2 (05:50→13:39)
[2017-06-13] MEDS: IPRATROPIUM/ALBUTEROL 0.5-2.5 MG/3 ML AMPUL NEB SCH ×3 (07:52→20:12)
--- NOTE | 2017-06-13 08:00 | PDOC PROGRESS REPORT ---
Subjective Progress Note for:: 06/13/17 Subjective:: ileus has resolved still has chronic constipation due to immobility patient may need a trial of Linzess 290mcg patient had colonoscopy done in the past no obstructive lesions are noted the other alternative is to provide her with some Golytely prep , NOT for a colonoscopy but to induce bowel movements she likely has compromised motility in her colon Reason For Visit: ABD PAIN, ILLEUS Physical Exam Vital Signs: Temp Pulse Resp BP Pulse Ox 98.4 F 80 18 102/57 L 100 06/13/17 03:49 06/13/17 03:49 06/13/17 03:49 06/13/17 03:49 06/13/17 03:49 Intake & Output 06/12/17 06/13/17 06/14/17 06:59 06:59 06:59 Intake Total 2408 2615 Output Total 1050 Balance 1358 2615 Weight 68.5 kg 67.9 kg General appearance: PRESENT: no acute distress, well-developed, well-nourished Head exam: PRESENT: atraumatic, normocephalic Eye exam: PRESENT: EOMI, PERRLA. ABSENT: nystagmus, periorbital swelling, scleral icterus Mouth exam: PRESENT: moist, neck supple Throat exam: ABSENT: tonsillar exudate, tonsillogmegaly Neck exam: ABSENT: meningismus, tenderness, thyromegaly Respiratory exam: PRESENT: symmetrical, unlabored. ABSENT: tachypnea, wheezes Cardiovascular exam: PRESENT: RRR, +S1, +S2 GI/Abdominal exam: PRESENT: soft. ABSENT: rigid, tenderness Extremities exam: ABSENT: joint swelling Musculoskeletal exam: PRESENT: full ROM Neurological exam: PRESENT: oriented to time, oriented to situation, CN II-XII grossly intact Psychiatric exam: PRESENT: anxious Skin exam: PRESENT: normal color. ABSENT: mottled, pallor, urticaria, vesicles Results Laboratory Results: 06/07/17 04:39 06/08/17 05:17 Impressions: Abdomen/Pelvis CT 06/04/17 00:00 IMPRESSION: 1. THERE IS PROMINENCE OF THE RENAL PELVIS OF BOTH KIDNEYS WHICH IS A CHRONIC FINDING. PROMINENCE OF THE RIGHT RENAL PELVIS IS IMPROVED COMPARED TO THE PRIOR STUDY IN JANUARY 2015. THIS MAY BE AN EXTRARENAL PELVIS OR MILD URETEROPELVIC JUNCTION OBSTRUCTION. 2. NO OTHER SIGNIFICANT OR ACUTE FINDING IN THE ABDOMEN OR PELVIS ON CT SCAN WITH IV CONTRAST. Chest X-Ray 06/04/17 15:18 IMPRESSION: There appear to be mild chronic lung changes with no acute cardiopulmonary disease. KUB X-Ray 06/10/17 09:30 IMPRESSION: NO RADIOGRAPHIC EVIDENCE FOR ACUTE ABDOMINAL DISEASE. Assessment & Plan - Diagnosis (1) Abdominal pain Qualifiers: Abdominal location: epigastric Qualified Code(s): R10.13 - Epigastric pain Is this a current diagnosis for this admission?: Yes (2) Ileus Is this a current diagnosis for this admission?: Yes (3) Chronic constipation Plan: needs rehab trial of Liness 290mcg may need Golyte solution to assist with having BM low residue diet since may have issues with motility decrease use of any pain medication ileus seems to have resolved EGD during this admission is negative - Time Time Spent with patient: 15-24 minutes
[2017-06-13] MEDS: ROFLUMILAST 500 MCG TABLET PO SCH (10:10)
[2017-06-13] MEDS: SERTRALINE HCL 50 MG TABLET PO SCH (10:10)
[2017-06-13] MEDS: MIRTAZAPINE 15 MG TABLET PO SCH (10:11)
[2017-06-13] MEDS: QUETIAPINE FUMARATE 100 MG TABLET PO SCH (10:11)
[2017-06-13] MEDS: CLONIDINE HCL 0.1 MG TABLET PO SCH (10:12)
[2017-06-13] MEDS: LACTULOSE SYRUP 20 GM/30 ML UDCUP PO SCH (10:12)
[2017-06-13] MEDS: PREDNISONE 5 MG TABLET PO SCH (10:12)
[2017-06-13] MEDS: TIOTROPIUM BROMIDE DPI 5 CAP/KIT (18 MCG/CAP) IH SCH (10:13)
[2017-06-13] MEDS: POLYETHYLENE GLYCOL 3350 POWDER 17 GM/1 PACKET PO SCH (10:13)
[2017-06-13] MEDS: ENOXAPARIN SODIUM INJ 40 MG/0.4 ML DISP.SYRIN SUBCUT SCH (10:16)
--- NOTE | 2017-06-13 12:40 | PDOC PROGRESS REPORT ---
Subjective Progress Note for:: 06/13/17 Subjective:: Patient is currently doing fair patient have a bowel movement yesterday Still with some abdominal discomfort and Dr. Quiroga saw the patient and suggested he use a Linzess Still waiting for the going to the assisted living Reason For Visit: ABD PAIN, ILLEUS Physical Exam Vital Signs: Temp Pulse Resp BP Pulse Ox 99.9 F 107 H 18 118/53 L 100 06/13/17 11:54 06/13/17 11:54 06/13/17 11:54 06/13/17 11:54 06/13/17 11:54 Intake & Output 06/12/17 06/13/17 06/14/17 06:59 06:59 06:59 Intake Total 2408 2615 Output Total 1050 Balance 1358 2615 Weight 68.5 kg 67.9 kg 67.8 kg General appearance: PRESENT: no acute distress, well-developed, well-nourished Head exam: PRESENT: atraumatic, normocephalic Eye exam: PRESENT: conjunctiva pink, EOMI, PERRLA. ABSENT: scleral icterus Ear exam: PRESENT: normal external ear exam Mouth exam: PRESENT: moist, tongue midline Neck exam: PRESENT: full ROM. ABSENT: carotid bruit, JVD, lymphadenopathy, thyromegaly Respiratory exam: PRESENT: clear to auscultation wilfredo Cardiovascular exam: PRESENT: RRR. ABSENT: diastolic murmur, rubs, systolic murmur Pulses: PRESENT: normal dorsalis pedis pul, +2 pedal pulses bilateral Vascular exam: PRESENT: normal capillary refill GI/Abdominal exam: PRESENT: normal bowel sounds, soft. ABSENT: distended, guarding, mass, organolmegaly, rebound, tenderness Rectal exam: PRESENT: deferred Extremities exam: ABSENT: pedal edema Neurological exam: PRESENT: alert, awake, oriented to person, oriented to place , oriented to time, oriented to situation, CN II-XII grossly intact. ABSENT: motor sensory deficit Psychiatric exam: PRESENT: appropriate affect, normal mood. ABSENT: homicidal ideation, suicidal ideation Skin exam: PRESENT: dry, intact, warm. ABSENT: cyanosis, rash Results Laboratory Results: 06/07/17 04:39 06/08/17 05:17 Impressions: Abdomen/Pelvis CT 06/04/17 00:00 IMPRESSION: 1. THERE IS PROMINENCE OF THE RENAL PELVIS OF BOTH KIDNEYS WHICH IS A CHRONIC FINDING. PROMINENCE OF THE RIGHT RENAL PELVIS IS IMPROVED COMPARED TO THE PRIOR STUDY IN JANUARY 2015. THIS MAY BE AN EXTRARENAL PELVIS OR MILD URETEROPELVIC JUNCTION OBSTRUCTION. 2. NO OTHER SIGNIFICANT OR ACUTE FINDING IN THE ABDOMEN OR PELVIS ON CT SCAN WITH IV CONTRAST. Chest X-Ray 06/04/17 15:18 IMPRESSION: There appear to be mild chronic lung changes with no acute cardiopulmonary disease. KUB X-Ray 06/10/17 09:30 IMPRESSION: NO RADIOGRAPHIC EVIDENCE FOR ACUTE ABDOMINAL DISEASE. Assessment & Plan - Diagnosis (1) Ileus Is this a current diagnosis for this admission?: Yes Plan: Currently all resolving (2) Abdominal pain Qualifiers: Abdominal location: epigastric Qualified Code(s): R10.13 - Epigastric pain Is this a current diagnosis for this admission?: Yes Plan: Due to the above conditions currently resolving with advancing the diet (3) COPD (chronic obstructive pulmonary disease) Qualifiers: COPD type: chronic bronchitis Is this a current diagnosis for this admission?: Yes Plan: stable (4) Diabetes Qualifiers: Diabetes mellitus type: type 2 Diabetes mellitus complication status: with unspecified complications Is this a current diagnosis for this admission?: Yes Plan: stable (5) Generalized anxiety disorder Is this a current diagnosis for this admission?: Yes Plan: Continues to current medications (6) Hypertension Qualifiers: Hypertension type: essential hypertension Qualified Code(s): I10 - Essential (primary) hypertension Is this a current diagnosis for this admission?: Yes Plan: Continues to clonidine - Time Time Spent with patient: 15-24 minutes Medications reviewed and adjusted accordingly: Yes Anticipated discharge: Other Within: Other - Inpatient Certification Medical Necessity: Need Close Monitoring Due to Risk of Patient Decompensation Post Hospital Care: D/C 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
[2017-06-13] MEDS: TAMSULOSIN HCL 0.4 MG CAP.SR.24H PO SCH (14:41)
[2017-06-13] MEDS: MONTELUKAST SODIUM 10 MG TABLET PO SCH (18:02)
[2017-06-13] MEDS: ATORVASTATIN CALCIUM 20 MG TABLET PO SCH (21:17)
[2017-06-13] MEDS: CYCLOBENZAPRINE HCL 10 MG TABLET PO SCH (21:17)
[2017-06-13] MEDS: ZOLPIDEM TARTRATE 5 MG TABLET PO SCH (21:17)
[2017-06-14] MEDS: LANSOPRAZOLE 30 MG TAB.RAP.DR PO SCH (05:49)
[2017-06-14] MEDS: LEVOTHYROXINE SODIUM 0.025 MG TABLET PO SCH (05:49)
[2017-06-14] MEDS: GABAPENTIN 100 MG CAPSULE PO SCH (05:49)
[2017-06-14] MEDS: IPRATROPIUM/ALBUTEROL 0.5-2.5 MG/3 ML AMPUL NEB SCH (07:59)
[2017-06-14 08:44] VITALS: BP 111/48
[2017-06-14] MEDS: HYDROMORPHONE HCL 2 MG TABLET PO PRN (08:54)
[2017-06-14] MEDS: TIOTROPIUM BROMIDE DPI 5 CAP/KIT (18 MCG/CAP) IH SCH (09:23)
[2017-06-14] MEDS: POLYETHYLENE GLYCOL 3350 POWDER 17 GM/1 PACKET PO SCH (09:25)
[2017-06-14] MEDS: LACTULOSE SYRUP 20 GM/30 ML UDCUP PO SCH (09:25)
[2017-06-14] MEDS: CLONIDINE HCL 0.1 MG TABLET PO SCH (09:26)
[2017-06-14] MEDS: QUETIAPINE FUMARATE 100 MG TABLET PO SCH (09:32)
[2017-06-14] MEDS: MIRTAZAPINE 15 MG TABLET PO SCH (09:32)
[2017-06-14] MEDS: PREDNISONE 5 MG TABLET PO SCH (09:33)
[2017-06-14] MEDS: ROFLUMILAST 500 MCG TABLET PO SCH (09:33)
[2017-06-14] MEDS: SERTRALINE HCL 50 MG TABLET PO SCH (09:33)
[2017-06-14] MEDS: ENOXAPARIN SODIUM INJ 40 MG/0.4 ML DISP.SYRIN SUBCUT SCH (09:34)
--- NOTE | 2017-06-14 11:25 | PDOC DISCHARGE SUMMARY ---
General - Admit/Disc Date/PCP Admission Date/Primary Care Provider: 06/05/17 00:01 SILVINA KABA MD Discharge Date: 06/14/17 - Discharge Diagnosis (1) Ileus Is this a current diagnosis for this admission?: Yes Summary: Currently all stable Patient's follow-up outpatients colonoscopy per Dr. Quiroga (2) Abdominal pain Is this a current diagnosis for this admission?: Yes Summary: Currently all resolved (3) COPD (chronic obstructive pulmonary disease) Is this a current diagnosis for this admission?: Yes Summary: Currently all stable (4) Diabetes Is this a current diagnosis for this admission?: Yes Summary: Continues to sliding scale as per [facility] protocol (5) Generalized anxiety disorder Is this a current diagnosis for this admission?: Yes Summary: Also see the psych (6) Hypertension Is this a current diagnosis for this admission?: Yes Summary: Currently all stable - Additional Information Resuscitation Status: Full Code Discharge Diet: Diabetic Discharge Activity: Activity As Tolerated Prescriptions: Insulin Lispro [Humalog Insulin (Lispro) 100 unit/mL] 0 - 12 unit SUBCUT ACHS # 1 unit Linaclotide [Linzess] 290 mcg PO DAILY #30 capsule Polyethylene Glycol 3350 [Miralax Powder 17 gm/Packet] 17 gm PO DAILY #30 powd.pack Home Medications: Albuterol Sulfate [Proair HFA] 2 puff IH Q4 06/04/17 Clonidine HCl [Catapres 0.1 mg Tablet] 0.1 mg PO Q4 06/04/17 Cyclobenzaprine HCl [Flexeril 5 mg Tablet] 5 mg PO QHS 06/04/17 Dicyclomine HCl [Bentyl 20 mg Tablet] 20 mg PO TIDP PRN 06/04/17 Fluticasone/Vilanterol [Breo Ellipta 200-25 Mcg INH] 1 puff IH DAILY 06/04/17 Furosemide [Lasix 20 mg Tablet] 20 mg PO Q2D 06/04/17 Gabapentin [Neurontin 100 mg Capsule] 100 mg PO Q8 06/04/17 Hydroxyzine Pamoate [Vistaril 25 mg Capsule] 25 mg PO DAILYP PRN 06/04/17 Levothyroxine Sodium [Synthroid] 25 mcg PO Q6AM 06/04/17 Lorazepam [Ativan 1 mg Tablet] 1 mg PO QIDP PRN 06/04/17 Mirtazapine [Remeron 15 mg Tablet] 15 mg PO DAILY 06/04/17 Montelukast Sodium [Singulair 10 mg Tablet] 10 mg PO QPM 06/04/17 Nitroglycerin [Nitrostat] 0.3 mg SL Q5MP PRN 06/04/17 Omeprazole 40 mg PO DAILY 06/04/17 Ondansetron HCl [Zofran 4 mg Tablet] 4 mg PO Q6HP PRN 06/04/17 Prednisone [Deltasone 5 mg Tablet] 5 mg PO DAILY 06/04/17 Quetiapine Fumarate [Seroquel] 300 mg PO DAILY 06/04/17 Roflumilast [Daliresp 500 mcg Tablet] 500 mcg PO DAILY 06/04/17 Rosuvastatin Calcium [Crestor 10 mg Tablet] 10 mg PO QHS 06/04/17 Sertraline HCl [Zoloft 50 mg Tablet] 50 mg PO DAILY 06/04/17 Tiotropium [place] [Spiriva Respimat] 2 puff IH QAM 06/04/17 Zolpidem Tartrate [Ambien 5 mg Tablet] 5 mg PO QHS 06/04/17 Insulin Lispro [Humalog Insulin (Lispro) 100 unit/mL] 0 - 12 unit SUBCUT ACHS # 1 unit 06/14/17 Linaclotide [Linzess] 290 mcg PO DAILY #30 capsule 06/14/17 Polyethylene Glycol 3350 [Miralax Powder 17 gm/Packet] 17 gm PO DAILY #30 powd.pack 06/14/17 History of Present Illness History of Present Illness: BRYON BONILLA is a 56 year old female with history of multiple abdominal operations and on a lot of medications for schizophrenia, c/o abdominal pains past few days with some nausea. Had Nate fundoplication for reflux in [place] about 15 years ago. This was followed by ventral hernia repair. She had a hysterectomy and apparently had exploratoey laparotomy for adhesions after. She was apparently in the ED past week for same complaints and was sent home. Claims her symptoms are worse this time. Claims has difficulty burping after her Nate surgery. Had CT scan today with IV contrast and appears to have dilated stomach but no other intra-abdominal findings may be some ileus. Patient was putting the oral feeding tubes to the mouth because patient unable to tolerate through the nose Patient still complaining of abdominal pain and nausea and unable to keep anything down Patient's denied any chest pain denied any shortness of the breath Patient is very anxious Hospital Course Hospital Course: The 56-year-old females with a significant psych problem unable to move for a long time and patients came to the emergency departments because complains some abdominal pain and found the ileusPatient seen by the general surgery and seen by Dr. Quiroga the GI and pretty much conservative management Also underwent for the endoscopy which is all stable Have a history of the Nate fundoplication surgery and according to the GI and surgery thus the reason patient have this ongoing problem with the multiple other abdominal surgery in the past Patient still not mobile so that is also issue with the patient Discussed with the Dr. Quiroga and suggest the use the Linzess and the use of MiraLAX every day and schedule outpatient colonoscopy COPD and currently see pulmonary outpatient His remained stable patient able to eat small amounts more frequently without any problem patient on positive bowel movement and at this point very extensive discussions with the patient's family and the patient transferred to the assisted living well patient's unable to go homes due to the all over comorbidity and conditions and family unable to take care at home pt still follow-up outpatients colonoscopy per Dr. Poole Physical Exam Vital Signs: Temp Pulse Resp BP Pulse Ox 98.1 F 89 18 111/48 L 97 06/14/17 07:24 06/14/17 08:03 06/14/17 08:03 06/14/17 07:24 06/14/17 08:03 Intake & Output 06/13/17 06/14/17 06/15/17 06:59 06:59 06:59 Intake Total 2615 3338 Balance 2615 3338 Weight 67.9 kg 66.5 kg General appearance: PRESENT: no acute distress, well-developed, well-nourished Head exam: PRESENT: atraumatic, normocephalic Eye exam: PRESENT: conjunctiva pink, EOMI, PERRLA. ABSENT: scleral icterus Ear exam: PRESENT: normal external ear exam Mouth exam: PRESENT: moist, tongue midline Neck exam: PRESENT: full ROM. ABSENT: carotid bruit, JVD, lymphadenopathy, thyromegaly Respiratory exam: PRESENT: clear to auscultation wilfredo Cardiovascular exam: PRESENT: RRR. ABSENT: diastolic murmur, rubs, systolic murmur Pulses: PRESENT: normal dorsalis pedis pul, +2 pedal pulses bilateral Vascular exam: PRESENT: normal capillary refill GI/Abdominal exam: PRESENT: normal bowel sounds, soft. ABSENT: distended, guarding, mass, organolmegaly, rebound, tenderness Rectal exam: PRESENT: deferred Extremities exam: ABSENT: pedal edema Neurological exam: PRESENT: alert, awake, oriented to person, oriented to place. ABSENT: motor sensory deficit Psychiatric exam: PRESENT: appropriate affect, normal mood. ABSENT: homicidal ideation, suicidal ideation Skin exam: PRESENT: dry, intact, warm. ABSENT: cyanosis, rash Results Laboratory Results: 06/07/17 04:39 06/08/17 05:17 Impressions: Abdomen/Pelvis CT 06/04/17 00:00 IMPRESSION: 1. THERE IS PROMINENCE OF THE RENAL PELVIS OF BOTH KIDNEYS WHICH IS A CHRONIC FINDING. PROMINENCE OF THE RIGHT RENAL PELVIS IS IMPROVED COMPARED TO THE PRIOR STUDY IN JANUARY 2015. THIS MAY BE AN EXTRARENAL PELVIS OR MILD URETEROPELVIC JUNCTION OBSTRUCTION. 2. NO OTHER SIGNIFICANT OR ACUTE FINDING IN THE ABDOMEN OR PELVIS ON CT SCAN WITH IV CONTRAST. Chest X-Ray 06/04/17 15:18 IMPRESSION: There appear to be mild chronic lung changes with no acute cardiopulmonary disease. KUB X-Ray 06/10/17 09:30 IMPRESSION: NO RADIOGRAPHIC EVIDENCE FOR ACUTE ABDOMINAL DISEASE. Qualifiers - * PATEINT BEING DISCHARGED WITH ANY OF THE FOLLOWING DIAGNOSIS?: No VTE patient discharged on overlapping Therapy?: Yes Plan Time Spent: Greater than 30 Minutes - Patient is currently doing fair follow-up outpatients colonoscopy
== END 2017-06-14 11:45 | DRG 390 ==
LOC: ER 14:54 → INTOOBSV 20:58 → EH 20:58 → 3W 23:25 → OBSVTOIN 06-05 00:01
PROVIDERS: ADMIT Family Medicine; ATTEND Family Medicine
PROC: 0DB68ZX Excision of Stomach, Via Natural or Artificial Opening Endoscopic, Diagnostic (ICD-10-PCS; principal; 2017-06-06 12:30)
DX: K56.7 Ileus, unspecified (principal); F25.9 Schizoaffective disorder, unspecified; K59.09 Other constipation; K20.9 Esophagitis, unspecified; K29.70 Gastritis, unspecified, without bleeding; E11.9 Type 2 diabetes mellitus without complications; I10 Essential (primary) hypertension; J44.9 Chronic obstructive pulmonary disease, unspecified; K21.9 Gastro-esophageal reflux disease without esophagitis; K44.9 Diaphragmatic hernia without obstruction or gangrene; M19.90 Unspecified osteoarthritis, unspecified site; F32.9 Major depressive disorder, single episode, unspecified; F41.1 Generalized anxiety disorder; Z79.899 Other long term (current) drug therapy; Z90.49 Acquired absence of other specified parts of digestive tract; Z90.710 Acquired absence of both cervix and uterus; Z87.891 Personal history of nicotine dependence; Z88.8 Allergy status to other drugs, medicaments and biological substances
CPT/HCPCS: 00731; 36415; 43239; 71045; 74018; 74177; 80048; 80053; 81001; 82272; 82962; 83605; 83735; 85025; 85610; 87040; 87086; 88305; 93005; 93010; 94640; 96361; 96374; 96375; 96376; 99285; G0378; J1170; J1200; J1650; J1815; J2405; J2704; J2765; J3480; J3490; J7030; J7120; J7512; J7620; S0028

== ENCOUNTER 2017-08-29 16:57 | Emergency (ER) | payer MEDICAID ==
[2017-08-29] MEDS ORDERED: METHYLPREDNISOLONE INJ 125 MG/2 ML SDV IV ONE (18:03)
[2017-08-29] MEDS ORDERED: IPRATROPIUM/ALBUTEROL 0.5-2.5 MG/3 ML AMPUL NEB ONE (18:03)
--- NOTE | 2017-08-29 18:04 | ER Document Report ---
ED Medical Screen (RME) - General Chief Complaint: Shortness Of Breath Stated Complaint: SHORTNESS OF BREATH Time Seen by Provider: 08/29/17 18:02 Notes: 56 years old female with a history of terminal COPD living in a long-term, sister found having difficulty in breathing and coughing largely dry cough therefore called EMS and brought her to the ED. No history of any fever chills. No chest pain. I have greeted and performed a rapid initial assessment of this patient. A comprehensive ED assessment and evaluation of the patient, analysis of test results and completion of the medical decision making process will be conducted by additional ED providers. PHYSICAL EXAMINATION: GENERAL: Cachexia of COPD, having difficulty in breathing. HEAD: Atraumatic, normocephalic. EYES: Pupils equal round extraocular movements intact, conjunctiva are normal. ENT: Nares patent NECK: Normal range of motion LUNGS: Bilaterally decreased breath sounds with scattered expiratory wheeze Musculoskeletal: Normal range of motion NEUROLOGICAL: Normal speech, normal gait. PSYCH: Normal mood, normal affect. SKIN: Warm, Dry, normal turgor, no rashes or lesions noted. TRAVEL OUTSIDE OF THE [place] IN LAST 30 DAYS: No - Related Data Allergies/Adverse Reactions: clarithromycin [From Biaxin] Allergy (Severe, Verified 05/22/17 17:35) TONGUE/THROAT SWELLING furosemide [From Lasix] Allergy (Intermediate, Verified 05/22/17 17:35) UNSURE venlafaxine HCl [From Effexor] Allergy (Intermediate, Verified 05/22/17 17:35) MUSCLE WEAKNESS adhesive tape Allergy (Verified 05/22/17 17:35) RASH divalproex sodium [From Depakote] Allergy (Verified 05/22/17 17:35) UNSURE Past Medical History - Social History Frequency of alcohol use: None Drug Abuse: None - Past Medical History Cardiac Medical History: Reports: Hx Hypertension Denies: Hx Coronary Artery Disease, Hx Heart Attack Pulmonary Medical History: Reports: Hx Asthma, Hx Bronchitis, Hx COPD, Hx Pneumonia Denies: Hx Tuberculosis Neurological Medical History: Denies: Hx Cerebrovascular Accident, Hx Seizures Endocrine Medical History: Reports: Hx Diabetes Mellitus Type 2 Renal/ Medical History: Denies: Hx Peritoneal Dialysis GI Medical History: Reports: Hx Gastroesophageal Reflux Disease, Hx Hiatal Hernia, Hx Ulcer - UMBILICAL. Denies: Hx Hepatitis Musculoskeltal Medical History: Reports Hx Arthritis Psychiatric Medical History: Reports: Hx Depression, Hx Schizoaffective Disorder , Hx Schizophrenia Infectious Medical History: Denies: Hx Hepatitis Past Surgical History: Reports: Hx Abdominal Surgery, Hx Appendectomy, Hx Section, Hx Cholecystectomy, Hx Hysterectomy, Other - Nate fundoplication, ventral herniorraphy 15 yrs ago. Denies: Hx Mastectomy, Hx Open Heart Surgery, Hx Pacemaker - Immunizations Hx Diphtheria, Pertussis, Tetanus Vaccination: No History of Influenza Vaccine for 12/2016 - 05/2017 Season: Yes Influenza Administration Date for 12/2016 - 05/2017 Season: 04/01/17 Physical Exam - Vital signs Vitals: Temp Pulse Resp BP Pulse Ox 98.8 F 100 19 118/63 98 08/29/17 17:13 08/29/17 17:13 08/29/17 17:13 08/29/17 17:13 08/29/17 17:13 Course - Vital Signs Vital signs: Temp Pulse Resp BP Pulse Ox 98.8 F 100 24 H 116/49 L 99 08/29/17 17:13 08/29/17 17:13 08/29/17 17:19 08/29/17 17:19 08/29/17 17:19 Doctor's Discharge - Discharge Referrals: SILVINA KABA MD [Primary Care Provider] - Follow up as needed
--- NOTE | 2017-08-29 18:31 | RADIOLOGY REPORT (SQ) ---
EXAM DESCRIPTION: CHEST SINGLE VIEW COMPLETED DATE/TIME: 08/29/2017 6:04 pm REASON FOR STUDY: sob COMPARISON: 06/04/2017 EXAM PARAMETERS: NUMBER OF VIEWS: One view. TECHNIQUE: Single frontal radiographic view of the chest acquired. RADIATION DOSE: NA LIMITATIONS: None. FINDINGS: LUNGS AND PLEURA: Mild hyperexpansion of the lungs. No pulmonary infiltrate or pleural ef fusion. No mass. MEDIASTINUM AND HILAR STRUCTURES: No masses. Contour normal. HEART AND VASCULAR STRUCTURES: Heart normal in size. Normal vasculature. BONES: No acute findings. HARDWARE: None in the chest. OTHER: No other significant finding. IMPRESSION: Mild chronic lung changes with no acute cardiopulmonary disease. TECHNICAL DOCUMENTATION: JOB ID: [id number] [employer]- All Rights Reserved Reading location - IP/workstation name: [email or web address]
--- NOTE | 2017-08-29 18:37 | ER Document Report ---
ED General <GÓMEZ ORR - Last Filed: 08/29/17 19:57> - General Mode of Arrival: Ambulatory Information source: Patient TRAVEL OUTSIDE OF THE [place] IN LAST 30 DAYS: No <JIMENA BATISTA - Last Filed: 08/29/17 22:29> - General Chief Complaint: Shortness Of Breath Stated Complaint: SHORTNESS OF BREATH Time Seen by Provider: 08/29/17 18:02 Notes: Patient is a 56 year old female with terminal COPD, HTN, Type 2 diabetes presents to the emergency department from [facility] complaining of a dry cough, increased shortness of breath and fever. Relative at bedside states the patient has had a progressively worsened shortness of breath since yesterday and has been excessively coughing. Patient states she took her temperature last night and found it to be 101.9. Patient mentions being around sick contacts at the correction. Patient is always on 3 L of nasal cannula at home. Patients PCP is Dr. Xavier. (JIMENA BATISTA) - Related Data Allergies/Adverse Reactions: clarithromycin [From Biaxin] Allergy (Severe, Verified 05/22/17 17:35) TONGUE/THROAT SWELLING furosemide [From Lasix] Allergy (Intermediate, Verified 05/22/17 17:35) UNSURE venlafaxine HCl [From Effexor] Allergy (Intermediate, Verified 05/22/17 17:35) MUSCLE WEAKNESS adhesive tape Allergy (Verified 05/22/17 17:35) RASH divalproex sodium [From Depakote] Allergy (Verified 05/22/17 17:35) UNSURE Past Medical History - General Information source: Patient - Social History Smoking Status: Current Some Day Smoker Frequency of alcohol use: None Drug Abuse: None Family History: CAD, COPD, Hypertension, Malignancy Patient has suicidal ideation: No Patient has homicidal ideation: No - Past Medical History Cardiac Medical History: Reports: Hx Hypertension Pulmonary Medical History: Reports: Hx Asthma, Hx Bronchitis, Hx COPD, Hx Pneumonia Endocrine Medical History: Reports: Hx Diabetes Mellitus Type 2 GI Medical History: Reports: Hx Gastroesophageal Reflux Disease, Hx Hiatal Hernia, Hx Ulcer - UMBILICAL Musculoskeltal Medical History: Reports Hx Arthritis Psychiatric Medical History: Reports: Hx Depression, Hx Schizoaffective Disorder , Hx Schizophrenia Past Surgical History: Reports: Hx Abdominal Surgery, Hx Appendectomy, Hx Section, Hx Cholecystectomy, Hx Hysterectomy, Other - Nate fundoplication, ventral herniorraphy 15 yrs ago - Immunizations Hx Diphtheria, Pertussis, Tetanus Vaccination: No Hx Pneumococcal Vaccination: 01/30/13 <JIMENA BATISTA - Last Filed: 08/29/17 22:29> Review of Systems - Review of Systems Constitutional: See HPI, Fever EENT: No symptoms reported Cardiovascular: No symptoms reported Respiratory: See HPI, Cough, Short of breath Gastrointestinal: No symptoms reported Genitourinary: No symptoms reported Female Genitourinary: No symptoms reported Musculoskeletal: No symptoms reported Skin: No symptoms reported Hematologic/Lymphatic: No symptoms reported Neurological/Psychological: No symptoms reported -: Yes All other systems reviewed and negative <JIMENA BATISTA - Last Filed: 08/29/17 22:29> Physical Exam <GÓMEZ ORR - Last Filed: 08/29/17 19:57> <JIMENA BATISTA - Last Filed: 08/29/17 22:29> - Vital signs Vitals: Temp Pulse Resp BP Pulse Ox 98.8 F 100 19 118/63 98 08/29/17 17:13 08/29/17 17:13 08/29/17 17:13 08/29/17 17:13 08/29/17 17:13 - Notes Notes: GENERAL: Alert, interacts well. No acute distress. HEAD: Normocephalic, atraumatic. EYES: Pupils equal, round, and reactive to light. Extraocular movements intact. ENT: Oral mucosa moist, tongue midline. NECK: Full range of motion. Supple. Trachea midline. LUNGS: Pursed lip breathing. Diffuse expiratory wheezing. Rhonchi with cough. HEART: Regular rate and rhythm. No murmurs, gallops, or rubs. ABDOMEN: Soft, non-tender. Non-distended. Bowel sounds present in all 4 quadrants. EXTREMITIES: Moves all 4 extremities spontaneously. Bilateral foot drop. NEUROLOGICAL: Alert and oriented x3. Normal speech. PSYCH: Normal affect, normal mood. SKIN: Warm, dry, normal turgor. No rashes or lesions noted. (JIMENA BATISTA) Course - Laboratory Result Diagrams: 08/29/17 18:15 08/29/17 18:15 - Diagnostic Test Radiology reviewed: Image reviewed, Reports reviewed - Mild hyperexpansion, COPD , no infiltrates or acute changes. - EKG Interpretation by Ma EKG shows normal: Sinus rhythm, Whitman, Intervals, QRS Complexes. abnormal: ST-T Waves - Borderline anterolateral T abnormalities Rate: Normal - 95 Rhythm: NSR Whitman/QRS: Left axis deviation Voltage: Decreased voltage When compared to previous EKG there are: No significant change <GÓMEZ ORR - Last Filed: 08/29/17 19:57> - Laboratory Result Diagrams: 08/29/17 18:15 08/29/17 18:15 <JIMENA BATISTA - Last Filed: 08/29/17 22:29> - Re-evaluation Re-evalutation: 08/29/17 20:50 At this time the patient's wheezes are much better. The patient states she is feeling back to normal and is anxious to go home. Pulse oximeter on her normal nasal O2 is 96-98%. (GÓMEZ ORR) - Vital Signs Vital signs: Temp Pulse Resp BP Pulse Ox 99.3 F 95 20 133/64 H 96 08/29/17 21:10 08/29/17 21:10 08/29/17 21:10 08/29/17 21:10 08/29/17 21:10 - Laboratory Laboratory results interpreted by in: 08/29/17 08/29/17 08/29/17 18:15 18:15 19:27 RBC 3.68 L Hgb 10.4 L Hct 32.6 L RDW 18.0 H Seg Neutrophils % 81.1 H Lymphocytes % 7.7 L Chloride 95 L Carbon Dioxide 37 H Creatinine 0.38 L Total Protein 6.1 L Urine Blood MODERATE H Urine Urobilinogen 2.0 H Discharge <GÓMEZ ORR - Last Filed: 08/29/17 19:57> <JIMENA BATISTA - Last Filed: 08/29/17 22:29> - Discharge Clinical Impression: COPD (chronic obstructive pulmonary disease) with acute bronchitis, Shortness of breath Condition: Stable Disposition: HOME, SELF-CARE Additional Instructions: Most likely have a COPD exacerbation with bronchitis today. Start the prednisone as prescribed tomorrow. Start the doxycycline tomorrow. Drink plenty of fluids. Stop smoking. Continue your regular medications. Follow-up with your primary care provider if not improving. RETURN TO THE EMERGENCY ROOM IF ANY NEW OR WORSENING SYMPTOMS. Prescriptions: Doxycycline Hyclate 100 mg PO BID #14 tablet Prednisone [Deltasone 10 mg Tablet] 10 mg PO ASDIR PRN #21 tablet PRN Reason: Referrals: SILVINA XAVIER MD [Primary Care Provider] - Follow up as needed Scribe Attestation: 08/29/17 19:13 I personally performed the services described in the documentation, reviewed and edited the documentation which was dictated to the scribe in my presence, and it accurately records my words and actions. (GÓMEZ ORR) Scribe Documentation - Scribe Written by Scribe:: Sukhwinder Miranda, 08/29/2017 18:41 acting as scribe for :: Alex <JIMENA BATISTA - Last Filed: 08/29/17 22:29>
[2017-08-29 18:38] LABS: ABSOLUTE LYMPHOCYTES (AUTO) 0.8 10^3/uL (0.5-4.7); ABSOLUTE MONOCYTES (AUTO) 1.1 10^3/uL (0.1-1.4); ABSOLUTE NEUT (AUTO) 8.2 10^3/uL (1.7-8.2); BASOPHILS % (AUTO) 0.4 % (0-2); EOSINOPHILS % (AUTO) 0.2 % (0-6); HEMATOCRIT 32.6 % (36.0-47.0); HEMOGLOBIN 10.4 g/dL (12.0-15.5); LYMPHOCYTES % (AUTO) 7.7 % (13-45); MEAN CORPUSCULAR HEMOGLOBIN 28.3 pg (27.0-33.4); MEAN CORPUSCULAR VOLUME 89 fl (80-97); MONOCYTES % (AUTO) 10.6 % (3-13); PLATELET COUNT 223 10^3/uL (150-450); RED BLOOD COUNT 3.68 10^6/uL (3.72-5.28); SEGMENTED NEUTROPHILS % (AUTO) 81.1 % (42-78); TOTAL CELLS COUNTED % (AUTO) 100 %; WHITE BLOOD COUNT 10.1 10^3/uL (4.0-10.5)
[2017-08-29 19:02] LABS: ALANINE AMINOTRANSFERASE 24 U/L (9-52); ALBUMIN 3.6 g/dL (3.5-5.0); ALKALINE PHOSPHATASE 78 U/L (38-126); ANION GAP 9 (5-19); ASPARTATE AMINO TRANSFERASE 16 U/L (14-36); BILIRUBIN,DIRECT 0.3 mg/dL (0.0-0.4); BILIRUBIN,TOTAL 0.4 mg/dL (0.2-1.3); BLOOD UREA NITROGEN 7 mg/dL (7-20); CALCIUM 9.3 mg/dL (8.4-10.2); CARBON DIOXIDE 37 mmol/L (22-30); CHLORIDE 95 mmol/L (98-107); CREATINE KINASE 35 U/L (30-135); GLUCOSE 92 mg/dL (75-110); POTASSIUM 4.2 mmol/L (3.6-5.0); SODIUM 140.6 mmol/L (137-145); TOTAL PROTEIN 6.1 g/dL (6.3-8.2)
[2017-08-29 19:14] LABS: CREATINE KINASE MB 0.88 ng/mL (<4.55); TROPONIN I < 0.012 ng/mL
[2017-08-29 19:52] LABS: APPEARANCE,URINE CLEAR; BILIRUBIN,URINE NEGATIVE (NEGATIVE); COLOR,URINE YELLOW; GLUCOSE, URINE NEGATIVE (NEGATIVE); KETONES,URINE NEGATIVE (NEGATIVE); LEUKOCYTE ESTERASE,URINE NEGATIVE (NEGATIVE); NITRITE,URINE NEGATIVE (NEGATIVE); PROTEIN,URINE NEGATIVE (NEGATIVE); URINE SPECIFIC GRAVITY 1.009
[2017-08-29] MEDS ORDERED: ACETAMINOPHEN 325 MG TABLET PO ONE (19:56)
[2017-08-29] MEDS ORDERED: PREDNISONE 20 MG TABLET PO ONE (19:56)
[2017-08-29] MEDS ORDERED: DOXYCYCLINE HYCLATE 100 MG TABLET PO ONE (19:57)
[2017-08-29 21:24] VITALS: BP 133/64
--- NOTE | 2017-08-30 08:45 | EKG REPORT ---
SEVERITY:- BORDERLINE ECG - SINUS RHYTHM BORDERLINE LEFT AXIS DEVIATION LOW VOLTAGE IN FRONTAL LEADS BORDERLINE T ABNORMALITIES, ANT-LAT LEADS : Confirmed by: Kobe Pizarro 30-Aug-2017 08:44:46
== END 2017-08-29 21:20 | disposition home or self-care (01) ==
LOC: ER 16:57
DX: J44.0 Chronic obstructive pulmonary disease with (acute) lower respiratory infection (principal); J20.9 Acute bronchitis, unspecified; Z99.81 Dependence on supplemental oxygen; R06.02 Shortness of breath; R05 Cough; R50.9 Fever, unspecified; I10 Essential (primary) hypertension; E11.9 Type 2 diabetes mellitus without complications; F17.200 Nicotine dependence, unspecified, uncomplicated; Z88.1 Allergy status to other antibiotic agents; Z88.8 Allergy status to other drugs, medicaments and biological substances; Z91.048 Other nonmedicinal substance allergy status; Z87.01 Personal history of pneumonia (recurrent)
CPT/HCPCS: 93005; 94640; 99285; 96374; 36415; 82553; 82550; 85025; 80053; 81001; 84484; 71045; 93010; J3490 ×2; J2930; J7512; J7620

== ENCOUNTER 2017-12-26 18:36 | Inpatient (IN) | payer MEDICAID ==
[~2017-12-26 18:36] MED LIST: ROCURONIUM BROMIDE INJ 50 MG/5 ML VIAL IV ONE
[2017-12-26] MEDS ORDERED: MAGNESIUM SULFATE/D5W 2 GM/200 ML RTUPB IV ONE (18:49)
[2017-12-26] MEDS ORDERED: ETOMIDATE INJ/PF 20 MG/10 ML SDV IV ONE (18:49)
[2017-12-26] MEDS ORDERED: KETAMINE HCL INJ 500 MG/10 ML VIAL ONE ×2 (18:51→19:00)
[2017-12-26] MEDS: MAGNESIUM SULFATE/D5W 1 GM/100 ML RTUPB IV SCH ×2 (18:54→19:35)
[2017-12-26] MEDS ORDERED: ALBUTEROL SULFATE 0.083% NEB 2.5 MG/3 ML AMPUL NEB ONE (19:05)
[2017-12-26] MEDS ORDERED: ALBUTEROL SULFATE 0.042% NEB (1.25 MG/3 ML) AMPUL NEB ONE (19:06)
[2017-12-26] MEDS ORDERED: KETAMINE HCL INJ 500 MG/10 ML VIAL IV ONE ×2 (19:07)
[2017-12-26] MEDS ORDERED: ROCURONIUM BROMIDE INJ 50 MG/5 ML VIAL IV ONE (19:08)
[2017-12-26] MEDS ORDERED: RINGERS SOLUTION,LACTATED 1,000 ML IV ONE ×2 (19:23→19:24)
--- NOTE | 2017-12-26 19:24 | ER Document Report ---
ED General - General Chief Complaint: Breathing Difficulty Stated Complaint: DIFFICULTY BREATHING Time Seen by Provider: 12/26/17 19:05 Cannot obtain history due to: Unstable vital signs, Altered mental status Notes: Patient is a 57-year old female with a past medical history of schizoaffective disorder resulting in residence in [facility], who presents with altered mental status and respiratory distress. EMS was contacted as the patient was hypoxic and confused. In route to the hospital patient was given nebulizer treatments, 125 mg of Solu-Medrol and IV fluids. At the time of my assessment the patient is extremely lethargic, confused, only able to state her name. No additional history is able to be obtained as patient requires immediate airway intervention. TRAVEL OUTSIDE OF THE [place] IN LAST 30 DAYS: No - Related Data Allergies/Adverse Reactions: clarithromycin [From Biaxin] Allergy (Severe, Verified 12/26/17 19:20) TONGUE/THROAT SWELLING furosemide [From Lasix] Allergy (Intermediate, Verified 12/26/17 19:20) UNSURE venlafaxine HCl [From Effexor] Allergy (Intermediate, Verified 12/26/17 19:20) MUSCLE WEAKNESS adhesive tape Allergy (Verified 12/26/17 19:20) RASH divalproex sodium [From Depakote] Allergy (Verified 12/26/17 19:20) UNSURE Past Medical History - General Information source: Emergency Med Personnel Cannot obtain history due to: Unstable vital signs, Altered mental status - Social History Smoking Status: Current Every Day Smoker Frequency of alcohol use: None Drug Abuse: None [facility] with: [facility] Family History: CAD, COPD, Hypertension, Malignancy Patient has suicidal ideation: No Patient has homicidal ideation: No - Past Medical History Cardiac Medical History: Reports: Hx Hypertension Denies: Hx Coronary Artery Disease, Hx Heart Attack Pulmonary Medical History: Reports: Hx Asthma, Hx Bronchitis, Hx COPD, Hx Pneumonia Denies: Hx Tuberculosis Neurological Medical History: Denies: Hx Cerebrovascular Accident, Hx Seizures Endocrine Medical History: Reports: Hx Diabetes Mellitus Type 2 Renal/ Medical History: Denies: Hx Peritoneal Dialysis GI Medical History: Reports: Hx Gastroesophageal Reflux Disease, Hx Hiatal Hernia, Hx Ulcer - UMBILICAL. Denies: Hx Hepatitis Musculoskeletal Medical History: Reports Hx Arthritis Psychiatric Medical History: Reports: Hx Depression, Hx Schizoaffective Disorder , Hx Schizophrenia Infectious Medical History: Denies: Hx Hepatitis Past Surgical History: Reports: Hx Abdominal Surgery, Hx Appendectomy, Hx Section, Hx Cholecystectomy, Hx Hysterectomy, Other - Nate fundoplication, ventral herniorraphy 15 yrs ago. Denies: Hx Mastectomy, Hx Open Heart Surgery, Hx Pacemaker - Immunizations Hx Diphtheria, Pertussis, Tetanus Vaccination: No Hx Pneumococcal Vaccination: 01/30/13 Review of Systems - Review of Systems -: Yes ROS unobtainable due to patient's medical condition Physical Exam - Vital signs Vitals: Resp 28 H 12/26/17 18:47 Interpretation: Tachycardic, Hypoxic, Tachypneic Notes: PHYSICAL EXAMINATION: GENERAL: Confused, in obvious respiratory distress. Lethargic. HEAD: Atraumatic, normocephalic. EYES: Pupils equal round and reactive to light, extraocular movements intact, sclera anicteric, conjunctiva are normal. ENT: nares patent, oropharynx clear without exudates. Moderately dry st mucous membranes. NECK: Normal range of motion, supple without lymphadenopathy LUNGS: Moderate to severe respiratory distress, breathing approximately 40 times per minute, poor respiratory effort however with these shallow respirations. Diminished air movement throughout. Coarse extra wheezing in all lung corrales. HEART: Regular tachycardia without murmurs ABDOMEN: Soft, nontender, normoactive bowel sounds. No guarding, no rebound. No masses appreciated. EXTREMITIES: no pitting or edema. No cyanosis. NEUROLOGICAL: Moves all extremities spontaneously but does not follow commands PSYCH: Extremely lethargic, oriented only to person SKIN: Warm, Dry, normal turgor, no rashes or lesions noted. Course - Re-evaluation Re-evalutation: 12/26/17 19:22 Recommendations delayed as I been at this patient's bedside continuously for the past 35 minutes. In summary this patient came in in respiratory distress, obtunded, confused, saturating 89% on 10 L via nonrebreather. The patient could tell me her name but could not answer any other questions or follow commands. Initial examination showed coarse extra Tory wheezing in all lung corrales, diminished air movement throughout. Patient's airway needed to be controlled for ventilatory assistance and airway protection. This is achieved on first pass using ketamine and rocuronium. Patient had a ready received 125 mg of Solu-Medrol in the field. Continuous albuterol nebulizers have been initiated through the ventilator. The patient has been started on 2 g of magnesium. This infusion did need to be slowed as the. Had a brief period of hypotension into the 80s systolic. This did resolve rapidly with down titration of the infusion rate of the magnesium. The patient is also receiving a 1 L normal saline bolus. Chest x-ray shows some blunting of the diaphragmatic angle on the left concerning for possible pneumonia particular given the patient's rattly, productive cough at time of presentation. She has been started on levofloxacin. Patient labs are pending. She is critically ill , will require frequent reassessments. 12/26/17 19:44 Patient is tolerating the ventilator well. Tidal volume 400, rate 16, FiO2 is down to 40% with 100% saturations. The patient has copious secretions in the ET tube which are being suctioned without difficulty. Blood pressure has improved to 121 on 66 with reducing the rate of magnesium infusion. Temperature 97.2. Family has been updated at the bedside. Awaiting laboratory results and then will discuss with hospitalist for admission. Will continue to monitor and reassess at regular intervals. patient remains in guarded condition. 12/26/17 20:33 Patient's air movement has improved on the ventilator. And I discussed the case with Dr. Kaba who is excepted the patient to the ICU. - Vital Signs Vital signs: Temp Pulse Resp BP Pulse Ox 97.2 F 16 121/73 98 12/26/17 20:00 12/26/17 20:00 12/26/17 20:00 12/26/17 20:00 - Laboratory Result Diagrams: 12/26/17 18:20 12/26/17 18:20 Laboratory results interpreted by me: 12/26/17 12/26/17 12/26/17 18:20 18:20 19:22 RBC 3.50 L Hgb 10.0 L Hct 31.5 L MCHC 31.9 L RDW 16.6 H Seg Neuts % (Manual) 85 H Lymphocytes % (Manual) 4 L Abs Lymphs (Manual) 0.3 L Carbonic Acid ABG pH ABG pCO2 ABG HCO3 ABG Total CO2 Sodium 136.2 L Chloride 84 L Carbon Dioxide 45 H* Creatinine 0.40 L Glucose 163 H Direct Bilirubin 0.5 H Urine Protein 100 H Urine Ketones TRACE H Urine Blood SMALL H Urine Nitrite POSITIVE H Urine Bilirubin SMALL H Urine Urobilinogen 2.0 H Ur Leukocyte Esterase SMALL H 09/27/18 19:53 RBC Hgb Hct MCHC RDW Seg Neuts % (Manual) Lymphocytes % (Manual) Abs Lymphs (Manual) Carbonic Acid 1.49 H ABG pH 7.46 H ABG pCO2 49.6 H ABG HCO3 34.8 H ABG Total CO2 36.3 H Sodium Chloride Carbon Dioxide Creatinine Glucose Direct Bilirubin Urine Protein Urine Ketones Urine Blood Urine Nitrite Urine Bilirubin Urine Urobilinogen Ur Leukocyte Esterase - Diagnostic Test Radiology reviewed: Image reviewed, Reports reviewed Radiology results interpreted by me: 12/26/17 20:27 Chest x-ray: Left pleural effusion, no acute infiltrate Procedures - Intubation Orotracheal Airway evaluation: Normal anatomy Mallampati Classification: Class 1 Medications: Ketamine, Other - Rocuronium Intubation method: Orotracheal Blade type: Rd Blade size: 4 ETT size: 7.5 ETT secured at: Lips ETT secured at (cm): 22 Breath Sounds after Intubation: Equal End tidal CO2 confirmed: Yes Ventilator settings: SIMV Tidal volume: 400 FiO2: 40 Respirations: 16 PEEP: 5 Post Intubation Xray: Yes Intubation Complications: No complications Critical Care Note - Critical Care Note Total time excluding time spent on procedures (mins): 45 Comments: Critical care time spent obtaining history from patient or surrogate, discussions with consultants, development of treatment plan with patient or surrogate, evaluation of patient's response to treatment, examination of patient , ordering and performing treatments and interventions, ordering and review of laboratory studies, re-evaluation of patient's condition, ordering and review of radiographic studies and review of old charts Discharge - Discharge Clinical Impression: COPD exacerbation, Respiratory distress Altered mental status Qualifiers: Altered mental status type: coma Coma depth: Hossein coma 3-8 Coma timing: at arrival to emergency department Qualified Code(s): R40.2432 - Holcomb coma scale score 3-8, at arrival to emergency department Condition: Critical Disposition: ADMITTED INPATIENT Admitting Provider: [facility] Unit Admitted: ICU Referrals: SILVINA KABA MD [Primary Care Provider] - Follow up as needed
[2017-12-26 19:37] LABS: ALANINE AMINOTRANSFERASE 16 U/L (9-52); ALBUMIN 3.9 g/dL (3.5-5.0); ALKALINE PHOSPHATASE 94 U/L (38-126); ASPARTATE AMINO TRANSFERASE 24 U/L (14-36); BILIRUBIN,DIRECT 0.5 mg/dL (0.0-0.4); BILIRUBIN,TOTAL 0.5 mg/dL (0.2-1.3); BLOOD UREA NITROGEN 11 mg/dL (7-20); CALCIUM 8.9 mg/dL (8.4-10.2); CHLORIDE 84 mmol/L (98-107); GLUCOSE 163 mg/dL (75-110); SODIUM 136.2 mmol/L (137-145); TOTAL PROTEIN 7.3 g/dL (6.3-8.2)
[2017-12-26 19:40] LABS: APPEARANCE,URINE CLOUDY; BILIRUBIN,URINE SMALL (NEGATIVE); GLUCOSE, URINE NEGATIVE (NEGATIVE); KETONES,URINE TRACE mg/dL (NEGATIVE); LEUKOCYTE ESTERASE,URINE SMALL (NEGATIVE); NITRITE,URINE POSITIVE (NEGATIVE); PROTEIN,URINE 100 mg/dL (NEGATIVE); URINE SPECIFIC GRAVITY 1.032
[2017-12-26 19:41] LABS: HEMATOCRIT 31.5 % (36.0-47.0); MEAN CORPUSCULAR HEMOGLOBIN 28.7 pg (27.0-33.4); MEAN CORPUSCULAR HGB CONC 31.9 g/dL (32.0-36.0); MEAN CORPUSCULAR VOLUME 90 fl (80-97); PLATELET COUNT 299 10^3/uL (150-450); RED CELL DISTRIBUTION WIDTH 16.6 % (11.5-14.0); WHITE BLOOD COUNT 7.7 10^3/uL (4.0-10.5)
--- NOTE | 2017-12-26 19:41 | RADIOLOGY REPORT (SQ) ---
EXAM DESCRIPTION: CHEST SINGLE VIEW COMPLETED DATE/TIME: 12/26/2017 7:23 pm REASON FOR STUDY: post intubation, copd/distress COMPARISON: 09/20/2017 EXAM PARAMETERS: NUMBER OF VIEWS: One view. TECHNIQUE: Single frontal radiographic view of the chest acquired. RADIATION DOSE: NA LIMITATIONS: None. FINDINGS: LUNGS AND PLEURA: No opacities, masses or pneumothorax. Small left pleural effusion. MEDIASTINUM AND HILAR STRUCTURES: No masses. Contour normal. HEART AND VASCULAR STRUCTURES: Heart normal in size. Normal vasculature. BONES: No acute findings. HARDWARE: Endotracheal tube is present with tip approximately 4.5 cm above the regino. OTHER: No other significant finding. IMPRESSION: Endotracheal tube is present with tip approximately 4.5 cm above the regino. Small left pleural effusion. TECHNICAL DOCUMENTATION: JOB ID: [id number] [place]-[id number] 2010 [employer]- All Rights Reserved Reading location - IP/workstation name: [email or web address]
[2017-12-26] MEDS ORDERED: NORMAL SALINE 1000 ML 1,000 ML IV ONE (19:42)
[2017-12-26 19:43] LABS: COLOR,URINE YELLOW
[2017-12-26 19:45] LABS: ANION GAP 7 (5-19)
[2017-12-26 19:47] LABS: CARBON DIOXIDE 45 mmol/L (22-30)
[2017-12-26 20:01] LABS: ARTERIAL BLOOD BASE EXCESS 9.8 mmol/L; ARTERIAL BLOOD H2CO3 1.49 mmol/L (1.05-1.35); ARTERIAL BLOOD HCO3 34.8 mmol/L (20-24); ARTERIAL BLOOD O2 SATURATION 96.6 % (94-98); ARTERIAL BLOOD PCO2 49.6 mmHg (35-45); ARTERIAL BLOOD PH 7.46 (7.35-7.45); ARTERIAL BLOOD TOTAL CO2 36.3 mmol/L (21-25)
[2017-12-26 20:03] LABS: ARTERIAL BLOOD FIO2 30%
[2017-12-26 20:11] LABS: ABSOLUTE LYMPHOCYTES# (MANUAL) 0.3 10^3/uL (0.5-4.7); ABSOLUTE MONOCYTES # (MANUAL) 0.8 10^3/uL (0.1-1.4); ABSOLUTE NEUTROPHILS# (MANUAL) 6.5 10^3/uL (1.7-8.2); ANISOCYTOSIS 1+; BASOPHILS % (MANUAL) 0 % (0-2); EOSINOPHILS % (MANUAL) 1 % (0-6); LYMPHOCYTES % (MANUAL) 4 % (13-45); MONOCYTES % (MANUAL) 10 % (3-13); POIKILOCYTOSIS 2+; SEGMENTED NEUTROPHILS % (MAN) 85 % (42-78); STOMATOCYTES 2+; TOTAL CELLS COUNTED 100; TOXIC GRANULATION SLIGHT; TOXIC VACUOLATION PRESENT
[2017-12-26 20:12] LABS: PLATELET COMMENT ADEQUATE
[2017-12-26] MEDS ORDERED: LEVOFLOXACIN 750 MG/D5W RTU 750 MG/150 ML RTUPB IV ONE (20:23)
[2017-12-26] MEDS ORDERED: ACETAMINOPHEN 650 MG SUPP.RECT PR PRN (20:56)
[2017-12-26] MEDS ORDERED: ONDANSETRON HCL INJ/PF 4 MG/2 ML SDV IV PRN (20:56)
[2017-12-26] MEDS ORDERED: FENTANYL CITRATE INJ/PF 100 MCG/2 ML AMPUL ONE (21:31)
[2017-12-26] MEDS ORDERED: FENTANYL CITRATE INJ/PF 100 MCG/2 ML AMPUL IV ONE (21:32)
[2017-12-26] MEDS ORDERED: PROPOFOL 1,000 MG/100 ML INFUS..BTL IV ONE (21:39)
[2017-12-26] MEDS: PROPOFOL 1,000 MG/100 ML INFUS..BTL IV PRN (21:40)
[2017-12-26] MEDS ORDERED: METHYLPREDNISOLONE INJ 40 MG/1 ML SDV IV SCH (22:00)
[2017-12-26] MEDS: PANTOPRAZOLE SODIUM 40 MG VIAL IV SCH (22:18)
[2017-12-26] MEDS: MIDAZOLAM HCL 50 MG/100 ML RTUINJ IV PRN (22:35)
[2017-12-26] MEDS: NORMAL SALINE 1000 ML 1,000 ML IV PRN (22:36)
[2017-12-26] MEDS: CEFEPIME 2 GM/D5W RTU 2 GM/50 ML RTUPB IV SCH (22:45)
[2017-12-26 23:16] LABS: ARTERIAL BLOOD BASE EXCESS 10.2 mmol/L; ARTERIAL BLOOD HCO3 36.1 mmol/L (20-24); ARTERIAL BLOOD O2 SATURATION 90.5 % (94-98); ARTERIAL BLOOD PCO2 56.6 mmHg (35-45); ARTERIAL BLOOD PH 7.42 (7.35-7.45); ARTERIAL BLOOD PO2 59.1 mmHg (80-100); ARTERIAL BLOOD TOTAL CO2 37.8 mmol/L (21-25)
[2017-12-26 23:18] LABS: ARTERIAL BLOOD FIO2 30%
[2017-12-26] MEDS: IPRATROPIUM/ALBUTEROL 0.5-2.5 MG/3 ML AMPUL NEB SCH (23:50)
--- NOTE | 2017-12-27 00:21 | Operative Report ---
Operative Report DATE OF SURGERY: 12/27/17 PREOPERATIVE DIAGNOSIS: Respiratory failure, critical need for central venous access POSTOPERATIVE DIAGNOSIS: Same OPERATION: Left subclavian triple-lumen central venous catheter placement SURGEON: PETRA STEELE ANESTHESIA: Local TISSUE REMOVED OR ALTERED: None COMPLICATIONS: None ESTIMATED BLOOD LOSS: Minimal PROCEDURE: Informed consent was obtained. Procedure was done at the patient's bedside. Patient's left neck and chest were prepped and draped in usual sterile fashion. Local anesthetic was administered. The left subclavian vein was entered without difficulty. Triple-lumen central venous catheter was placed via the Seldinger technique. It withdrew blood and flushed easily. It was sutured in place. Dressings were applied. Patient tolerated procedure well with no apparent complications. Stat portable chest x-ray was ordered.
[2017-12-27] MEDS ORDERED: ALBUTEROL SULFATE 0.083% NEB 2.5 MG/3 ML AMPUL NEB PRN (00:29)
[2017-12-27] MEDS ORDERED: METHYLPREDNISOLONE INJ 125 MG/2 ML SDV IV ONE (00:30)
--- NOTE | 2017-12-27 00:34 | RADIOLOGY REPORT (SQ) ---
PROCEDURE: XR CHEST 1 VIEW HISTORY: central line placement, ETT, OG placement COMPARISON: 12/26/2017, done at 7:14 PM TECHNIQUE: The current study was done on 12/27/2017 at 12:28 AM local time Single projection of the chest was done. FINDINGS: There is no interval change in the position of the endotracheal tube. There is interval placement of an orogastric tube, the tip at least in the fundus of the stomach. There is interval placement of a left-sided central line, the tip terminating in the distal superior vena cava. There is no interval change in the minimal left basilar infiltrate/atelectasis . There are no pneumothoraces or pleural effusions The cardiomediastinal silhouette is stable. IMPRESSION: There is interval placement of an orogastric tube, the tip at least in the fundus of the stomach. There is interval placement of a left-sided central line, the tip terminating in the distal superior vena cava. There is no interval change in the minimal left basilar infiltrate/atelectasis .
[2017-12-27 01:23] LABS: CREATINE KINASE MB 1.99 ng/mL (<4.55)
[2017-12-27 01:30] LABS: TROPONIN I < 0.012 ng/mL
[2017-12-27] MEDS: PROPOFOL 1,000 MG/100 ML INFUS..BTL IV PRN ×5 (01:34→22:34)
[2017-12-27] MEDS: MIDAZOLAM HCL 50 MG/100 ML RTUINJ IV PRN (03:53)
[2017-12-27] MEDS: IPRATROPIUM/ALBUTEROL 0.5-2.5 MG/3 ML AMPUL NEB SCH ×5 (04:13→20:33)
[2017-12-27] MEDS: METHYLPREDNISOLONE INJ 125 MG/2 ML SDV IV SCH ×3 (06:10→21:10)
[2017-12-27 06:49] LABS: ABSOLUTE LYMPHOCYTES (AUTO) 0.2 10^3/uL (0.5-4.7); ABSOLUTE MONOCYTES (AUTO) 0.2 10^3/uL (0.1-1.4); ARTERIAL BLOOD BASE EXCESS 8.2 mmol/L; ARTERIAL BLOOD H2CO3 1.13 mmol/L (1.05-1.35); ARTERIAL BLOOD HCO3 31.3 mmol/L (20-24); ARTERIAL BLOOD O2 SATURATION 97.1 % (94-98); ARTERIAL BLOOD PCO2 37.7 mmHg (35-45); ARTERIAL BLOOD PH 7.54 (7.35-7.45); ARTERIAL BLOOD PO2 81.5 mmHg (80-100); ARTERIAL BLOOD TOTAL CO2 32.5 mmol/L (21-25); BASOPHILS % (AUTO) 0.1 % (0-2); HEMATOCRIT 26.6 % (36.0-47.0); HEMOGLOBIN 8.6 g/dL (12.0-15.5); LYMPHOCYTES % (AUTO) 2.5 % (13-45); MEAN CORPUSCULAR HEMOGLOBIN 28.9 pg (27.0-33.4); MEAN CORPUSCULAR HGB CONC 32.4 g/dL (32.0-36.0); MEAN CORPUSCULAR VOLUME 89 fl (80-97); PLATELET COUNT 283 10^3/uL (150-450); RED BLOOD COUNT 2.99 10^6/uL (3.72-5.28); RED CELL DISTRIBUTION WIDTH 16.6 % (11.5-14.0); SEGMENTED NEUTROPHILS % (AUTO) 94.4 % (42-78); TOTAL CELLS COUNTED % (AUTO) 100 %; WHITE BLOOD COUNT 7.4 10^3/uL (4.0-10.5)
[2017-12-27 06:50] LABS: ARTERIAL BLOOD FIO2 30%
[2017-12-27 07:11] LABS: ABSOLUTE LYMPHOCYTES# (MANUAL) 0.2 10^3/uL (0.5-4.7); ABSOLUTE MONOCYTES # (MANUAL) 0.1 10^3/uL (0.1-1.4); BASOPHILS % (MANUAL) 0 % (0-2); EOSINOPHILS % (MANUAL) 0 % (0-6); LYMPHOCYTES % (MANUAL) 3 % (13-45); MONOCYTES % (MANUAL) 2 % (3-13); NUCLEATED RED BLOOD CELLS 2 /100 WBC (0); SEGMENTED NEUTROPHILS % (MAN) 95 % (42-78); TOTAL CELLS COUNTED 100
[2017-12-27 07:12] LABS: ANISOCYTOSIS 1+; PLATELET COMMENT ADEQUATE; POLYCHROMASIA SLIGHT
[2017-12-27 07:13] LABS: CREATINE KINASE MB 0.81 ng/mL (<4.55)
[2017-12-27 07:17] LABS: TROPONIN I < 0.012 ng/mL
[2017-12-27 07:18] LABS: ALANINE AMINOTRANSFERASE 28 U/L (9-52); ALBUMIN 2.8 g/dL (3.5-5.0); ALKALINE PHOSPHATASE 92 U/L (38-126); ANION GAP 5 (5-19); ASPARTATE AMINO TRANSFERASE 22 U/L (14-36); BILIRUBIN,DIRECT 0.3 mg/dL (0.0-0.4); BILIRUBIN,TOTAL 0.3 mg/dL (0.2-1.3); BLOOD UREA NITROGEN 10 mg/dL (7-20); CALCIUM 8.1 mg/dL (8.4-10.2); CARBON DIOXIDE 39 mmol/L (22-30); CHLORIDE 92 mmol/L (98-107); GLUCOSE 135 mg/dL (75-110); POTASSIUM 3.2 mmol/L (3.6-5.0); TOTAL PROTEIN 5.3 g/dL (6.3-8.2)
[2017-12-27] MEDS ORDERED: VANCOMYCIN HCL INJ 1000 MG VIAL IV ONE (09:16)
[2017-12-27] MEDS: PANTOPRAZOLE SODIUM 40 MG VIAL IV SCH ×2 (09:47→21:10)
[2017-12-27] MEDS: CEFEPIME 2 GM/D5W RTU 2 GM/50 ML RTUPB IV SCH (09:47)
[2017-12-27] MEDS: ENOXAPARIN SODIUM INJ 40 MG/0.4 ML DISP.SYRIN SUBCUT SCH (09:47)
[2017-12-27] MEDS: VANCOMYCIN HCL 1,000 MG in DEXTROSE 5%-WATER 250 ML IV SCH ×2 (09:51→17:56)
[2017-12-27] MEDS ORDERED: LEVOFLOXACIN 500 MG/D5W RTU 500 MG/100 ML RTUPB IV SCH (10:00)
[2017-12-27] MEDS: NORMAL SALINE 1000 ML 1,000 ML IV PRN ×2 (12:42→21:11)
--- NOTE | 2017-12-27 12:58 | PDOC PROGRESS REPORT ---
Subjective Progress Note for:: 12/27/17 Subjective:: Patient is currently intubated Overnight 100.4 fever Since urine cultures gram-negative organism Patient's blood pressures remained stable Patient have a very thick sputum secretions Patient seen by the pulmonary Discussed with the patient's POA and the family on the bedside Reason For Visit: ACUTE RESPIRATORY FAILURE,UTI,SEPSIS Physical Exam Vital Signs: Temp Pulse Resp BP Pulse Ox 100.6 F H 96 18 130/67 H 95 12/27/17 10:02 12/27/17 08:26 12/27/17 10:02 12/27/17 10:02 12/27/17 10:02 Intake & Output 12/26/17 12/27/17 12/28/17 06:59 06:59 06:59 Intake Total 431 2406 Output Total 585 125 Balance -154 2281 Weight 67.2 kg Physical Exam: Currently intubated under sedation General appearance: PRESENT: no acute distress Eye exam: PRESENT: PERRLA Mouth exam: PRESENT: neck supple Respiratory exam: PRESENT: clear to auscultation wilfredo Cardiovascular exam: PRESENT: +S1, +S2 GI/Abdominal exam: PRESENT: normal bowel sounds, soft Extremities exam: ABSENT: pedal edema Additional comments: Currently under sedations Results Laboratory Results: 12/27/17 06:30 12/27/17 06:30 12/26/17 12/27/17 12/27/17 23:05 06:30 06:30 WBC 7.4 RBC 2.99 L Hgb 8.6 L Hct 26.6 L MCV 89 MCH 28.9 MCHC 32.4 RDW 16.6 H Plt Count 283 Seg Neutrophils % 94.4 H Lymphocytes % 2.5 L Monocytes % 3.0 Eosinophils % 0.0 Basophils % 0.1 Absolute Neutrophils 7.0 Absolute Lymphocytes 0.2 L Absolute Monocytes 0.2 Absolute Eosinophils 0.0 Absolute Basophils 0.0 Carbonic Acid 1.70 H HCO3/H2CO3 Ratio 21:1 ABG pH 7.42 ABG pCO2 56.6 H ABG pO2 59.1 L ABG HCO3 36.1 H ABG O2 Saturation 90.5 L ABG Base Excess 10.2 FiO2 30% Sodium 136.0 L Potassium 3.2 L Chloride 92 L Carbon Dioxide 39 H Anion Gap 5 BUN 10 Creatinine 0.38 L Est GFR ( Amer) > 60 Est GFR (Non-Af Amer) > 60 Glucose 135 H Lactic Acid Calcium 8.1 L Magnesium 2.4 H Total Bilirubin 0.3 AST 22 ALT 28 Alkaline Phosphatase 92 Total Protein 5.3 L Albumin 2.8 L 12/27/17 12/27/17 06:30 06:45 WBC RBC Hgb Hct MCV MCH MCHC RDW Plt Count Seg Neutrophils % Lymphocytes % Monocytes % Eosinophils % Basophils % Absolute Neutrophils Absolute Lymphocytes Absolute Monocytes Absolute Eosinophils Absolute Basophils Carbonic Acid 1.13 HCO3/H2CO3 Ratio 27:1 ABG pH 7.54 H ABG pCO2 37.7 ABG pO2 81.5 ABG HCO3 31.3 H ABG O2 Saturation 97.1 ABG Base Excess 8.2 FiO2 30% Sodium Potassium Chloride Carbon Dioxide Anion Gap BUN Creatinine Est GFR ( Amer) Est GFR (Non-Af Amer) Glucose Lactic Acid 0.9 Calcium Magnesium Total Bilirubin AST ALT Alkaline Phosphatase Total Protein Albumin 12/27/17 12/27/17 12/27/17 00:40 00:40 06:30 Creatine Kinase 36 26 L CK-MB (CK-2) 1.99 Troponin I < 0.012 12/27/17 06:30 Creatine Kinase CK-MB (CK-2) 0.81 Troponin I < 0.012 Impressions: Chest X-Ray 12/27/17 00:06 IMPRESSION: There is interval placement of an orogastric tube, the tip at least in the fundus of the stomach. There is interval placement of a left-sided central line, the tip terminating in the distal superior vena cava. There is no interval change in the minimal left basilar infiltrate/atelectasis . Assessment & Plan - Diagnosis (1) Acute respiratory failure Qualifiers: Respiratory failure complication: hypoxia Qualified Code(s): J96.01 - Acute respiratory failure with hypoxia Is this a current diagnosis for this admission?: Yes Plan: Currently intubated on ventilations Most likely patient have possible underlying pneumonia also with COPD Continues to IV antibiotic Continues follow with the Dr. harding (2) Urinary tract infection Qualifiers: Urinary tract infection type: site unspecified Is this a current diagnosis for this admission?: Yes Plan: Continuous IV antibiotic (3) Depression Qualifiers: Depression Type: major depressive disorder Is this a current diagnosis for this admission?: Yes Plan: Patients follow with the psych (4) COPD exacerbation Is this a current diagnosis for this admission?: Yes Plan: Continues to nebulizer treatment and continues to steroid per the pulmonary (5) Diabetes Qualifiers: Diabetes mellitus type: type 2 Is this a current diagnosis for this admission?: Yes Plan: Continues to sliding-scale (6) Generalized anxiety disorder Is this a current diagnosis for this admission?: Yes Plan: Once the patient extubated will restart the patient's psych medications (7) Hypertension Qualifiers: Hypertension type: essential hypertension Is this a current diagnosis for this admission?: Yes Plan: Currently all stable (8) Gastroesophageal reflux disease Qualifiers: Esophagitis presence: without esophagitis Qualified Code(s): K21.9 - Gastro -esophageal reflux disease without esophagitis Is this a current diagnosis for this admission?: Yes Plan: Continues to Protonix (9) Anemia Qualifiers: Anemia type: iron deficiency Is this a current diagnosis for this admission?: Yes Plan: We will repeat the iron studies and CBC in the morning - Time Time Spent with patient: 35 or more minutes Total Critical Time (Minutes): 25 Medications reviewed and adjusted accordingly: Yes Within: Other - Inpatient Certification Based on my medical assessment, after consideration of the patient's comorbidities, presenting symptoms, or acuity I expect that the services needed warrant INPATIENT care.: Yes I certify that my determination is in accordance with my understanding of Medicare's requirements for reasonable and necessary INPATIENT services [42 CFR 412.3e].: Yes Medical Necessity: Need Close Monitoring Due to Risk of Patient Decompensation, Need For IV Fluids, Need for IV Antibiotics Post Hospital Care: D/C Supervising Editor Trailer Documentation - Plan Summary Plan Summary: Discussed with the ICU nurse Discussed with the patient's family and POA
[2017-12-27 14:00] LABS: TROPONIN I < 0.012 ng/mL
--- NOTE | 2017-12-27 14:37 | HISTORY AND PHYSICAL E ---
History and Physical NAME: BRYON BONILLA : 1960 AGE: 57Y ADMITTED: 12/26/2017 ROOM: 607 CHIEF COMPLAINT: Respiratory distress. HISTORY OF PRESENT ILLNESS: This is a 57-year-old female with a significant history of COPD, end stage, oxygen dependent, dependent, history of diabetes mellitus, history of anxiety disorder, history of hypertension, history of chronic biliary issues, and pretty much currently living conditions, basically came to the emergency department because of recently after 4:00 today the patient was not feeling well and when the family went to the [facility], the patient's oxygen saturation was below 70% on 3 L nasal cannula and patient's blood pressure was 130/80, but patient was not looking good and patient called EMS and brought to the emergency department for initial evaluation. The patient was initially placed on BiPAP, and according to the ER physician, the patient was more hypoxic and confused. The patient is extremely lethargic, and the patient, at this point, intubated and the patient was given the 125 mg Solu-Medrol IV, respiratory treatment, 2 g nebulizations. The patient was treated with hypotensives with resultant . The patient is currently intubated and ventilation. The patient's family is at bedside. The patient has a questionable, most likely, urinary tract infection and respiratory failure on chronic respiratory . The patient has a history of end-stage COPD, currently seeing Dr. Ramírez as outpatient. The patient also has a history of severe anxiety and psych issues and currently seeing psych for that. The patient had a history of acid reflux and a history of and also underwent hernia repair. Negative for other comorbidities and decided to admit into the hospital in ICU for further treatment. PAST MEDICAL HISTORY: 1. History of gastroesophageal reflux disease. 2. History of hypertension. 3. History of diabetes mellitus type 2. 4. History of anxiety. 5. History of disorder. 6. History of depression. PAST SURGICAL HISTORY: 1. Appendectomy. 2. . 3. Cholecystectomy. 4. Hysterectomy. . SOCIAL HISTORY: Former smoker, smoking . FAMILY HISTORY: COPD, hypertension, . CURRENT MEDICATIONS: 1. . 2. Cyclobenzaprine. 3. Bentyl 20 mg b.i.d. 4. Lasix 20 mg daily. 5. Gabapentin. 6. Restoril. 7. Levothyroxine. 8. Lorazepam. 9. Remeron. 10. Singulair. 11. Omeprazole. 12. Prednisone 5 mg p.o. daily. 13. Seroquel 300 mg daily. 14. Crestor 10 mg daily. 15. Zoloft daily. 16. daily. 17. Ambien p.r.n. ALLERGIES: ERYTHROMYCIN. DEPAKOTE. REVIEW OF SYSTEMS: Unable to obtain because of current conditions, but other than that, as above. PHYSICAL EXAMINATION: VITAL SIGNS: Blood pressure is 121/73, temperature is 97.3, pulse was 107, respirations were 16, currently on mechanical ventilation. GENERAL: The patient is currently lying in the bed, , in no acute distress. HEAD AND NECK: Normocephalic. PERRLA. LUNGS: Decreased breath sounds bilaterally. NECK: No JVD. HEART: S1 and S2 are present. ABDOMEN: Soft. Bowel sounds present. EXTREMITIES: No edema. NEUROLOGIC: The patient is currently under sedation. LABORATORY: WBC is 7.7, hemoglobin is 10.0, platelet is 299. . The patient's blood gas: PH was 7.46, PCO2 of 49.6, FiO2 is 30% on 2 L, SPO2 is 34.8. Chemistry: Sodium is 136, potassium is 4.0, BUN is 11, creatinine is 0.40. Lactic acid is 0.7. AST and ALT normal. First set of cardiac enzymes is negative. . Positive nitrites, small leukocytes. The patient's chest x-ray small left pleural effusion. ASSESSMENT: 1. Acute respiratory failure, on chronic respiratory distress. 2. Urinary tract infection. 3. Gastroesophageal reflux disease. 4. Type 2 diabetes mellitus. 5. Hypertension. 6. Depression. 7. Schizoaffective disorder. 8. Chronic comorbid conditions. 9. . PLAN: Admit the patient to the ICU. Consulted Dr. Ramíerz . Continue to follow with the respiratory issues. The patient is on broad-spectrum antibiotics. Continue the IV fluids. Continue to monitor all of the CT imaging to rule out the pulmonary embolism. Discussed with the patient's power of admitted attorneys and other family members in the ICU . The patient is currently very critical. I hope the patient continues to be improved. More than 1 hour spent examining the patient and reviewing the records. DICTATING PHYSICIAN: SILVINA KABA M.D. [id number] PHY#: [id number] ID: [id number] JOB#: [id number] ACCT: [id number] cc:SILVINA KABA M.D. >
--- NOTE | 2017-12-27 14:38 | CONSULTATION REPORT E ---
Consultation Report NAME: BRYON BONILLA : 1960 AGE: 57Y DATE: 12/26/2017 607 A TO: SHARON SMITH M.D. FROM: SILVINA KABA M.D. Requesting Physician HISTORY OF PRESENT ILLNESS: The patient is a 57-year-old female who came in [facility] because of increased respiratory distress and altered mental status. The patient was brought from [facility], and brought to the emergency room. The patient was subsequently endotracheally intubated and mechanically ventilated and transferred to ICU. The patient was wheezing in the ICU bilaterally. No coarse crackles. PAST MEDICAL HISTORY: 1. History of severe COPD. 2. History of previous smoking in the past. 3. History of asthma. 4. Pneumonia. 5. History of hypertension. 6. Diabetes type 2. 7. Arthritis. 8. History of depression and schizoaffective disorder. 9. Schizophrenia. 10. History of abdominal surgery. 11. section. 12. Appendectomy. 13. Cholecystectomy. 14. Hysterectomy. ALLERGIES: 1. ERYTHROMYCIN. 2. LASIX. 4. DEPAKOTE. SOCIAL HISTORY: The patient still smokes about a pack a day. Denies any alcohol abuse or illicit drug use. Lives in assisted living. REVIEW OF SYSTEMS: Not obtainable. The patient is intubated and mechanically intubated. PHYSICAL EXAMINATION: VITAL SIGNS: The patient is sedated, slightly febrile with temperature of 100.8 with a heart rate of 94, respiratory rate of 18, saturation 96% on FiO2 of 30%. EYES: No jaundice or pallor. EARS, NOSE, AND THROAT: No ear drainage. No nasal discharge. Endotracheal tube in place. LUNGS: She still has wheezing bilaterally. No coarse crackles. CARDIOVASCULAR: S1, S2 distinct. Normal rate, regular rhythm. ABDOMEN: Flabby, positive bowel sounds, soft, nondistended. EXTREMITIES: No joint swelling or cellulitis. LABORATORY: CBC done today showed white count of 7.7, hemoglobin is 10, hematocrit 31.5, platelet count is 299. No bands noted. ABG after vent changes at 11 p.m. showed pH of 7.42, PCO2 is 56.6, PO2 is 59.1, and saturation is 90% on 30% FiO2. SIMV PRVC with a rate of 18, tidal volume of 414, pressor support of 10, PEEP of 5. Titrate FiO2 to keep O2 saturation 91-94%. Chemistry done today showed sodium is 136, potassium 4, chloride is 84, CO2 is 45, BUN is 11, creatinine is 0.4, glucose 163, and calcium is 8.9. SGOT is 24, SGPT 16, troponin is less than 0.12. Chest x-ray showed hyperinflated lungs both sides, no prior pneumonia noted. ASSESSMENT: 1. Acute respiratory failure requiring invasive mechanical ventilation. 2. Severe COPD and acute exacerbation. 3. Pneumonia, possible. PLAN/RECOMMENDATIONS: 1. Agree with current IV antibiotics, IV Levaquin. 2. Increase the Solu-Medrol dose to 125 mg IV every 8 hours. 3. Continue nebulizer treatment, doing it every 6 hours. 4. Will give albuterol 2.5 nebulizer treatment every 4 hours in between the Duoneb nebulizer treatment for breakthrough bronchospasm DICTATING PHYSICIAN: SHARON SMITH MD,PAOLA,MPH [id number] PHY#: [id number] ID: [id number] JOB#: [id number] ACCT: [id number] cc:SHARON SMITH M.D. > KATHRYND
[2017-12-27] MEDS: POTASSIUM CHLORIDE 20 MEQ/50 ML RTU IV SCH ×2 (15:26→16:53)
[2017-12-27] MEDS ORDERED: NORMAL SALINE 250 ML IV ONE (15:30)
[2017-12-27] MEDS ORDERED: GLUCAGON,HUMAN RECOMB 1 MG INJ IM PRN (16:22)
[2017-12-27] MEDS ORDERED: INSULIN LISPRO 100 UNIT/ML 3 ML VIAL SUBCUT PRN (16:22)
[2017-12-27] MEDS ORDERED: DEXTROSE 40% GEL 15 GM TUBE PO PRN ×2 (16:22)
[2017-12-27] MEDS ORDERED: DEXTROSE 50%-WATER 25 GM/50 ML DISP.SYRIN IV PRN ×2 (16:22)
[2017-12-27 19:17] LABS: HEMATOCRIT 26.5 % (36.0-47.0); HEMOGLOBIN 8.7 g/dL (12.0-15.5); MEAN CORPUSCULAR HEMOGLOBIN 28.9 pg (27.0-33.4); MEAN CORPUSCULAR HGB CONC 32.7 g/dL (32.0-36.0); MEAN CORPUSCULAR VOLUME 88 fl (80-97); PLATELET COUNT 306 10^3/uL (150-450); RED BLOOD COUNT 2.99 10^6/uL (3.72-5.28); RED CELL DISTRIBUTION WIDTH 17.2 % (11.5-14.0); WHITE BLOOD COUNT 10.6 10^3/uL (4.0-10.5)
[2017-12-27] MEDS ORDERED: PIPERACILLIN/TAZOBACTAM 3.375 GM VIAL IV SCH (21:00)
--- NOTE | 2017-12-27 21:05 | EKG REPORT ---
SEVERITY:- ABNORMAL ECG - SINUS TACHYCARDIA PROBABLE INFERIOR INFARCT, OLD CONSIDER ANTERIOR INFARCT : Confirmed by: Sarah Beth Kate MD 27-Dec-2017 21:05:17
--- NOTE | 2017-12-27 21:05 | EKG REPORT ---
SEVERITY:- BORDERLINE ECG - SINUS RHYTHM BORDERLINE LEFT AXIS DEVIATION LOW VOLTAGE THROUGHOUT BORDERLINE T ABNORMALITIES, ANTERIOR LEADS : Confirmed by: Sarah Beth Kate MD 27-Dec-2017 21:05:07
[2017-12-27] MEDS: LEVOFLOXACIN 750 MG/D5W RTU 750 MG/150 ML RTUPB IV SCH (21:10)
[2017-12-28] MEDS ORDERED: IPRATROPIUM/ALBUTEROL 0.5-2.5 MG/3 ML AMPUL NEB ONE (00:02)
[2017-12-28] MEDS: IPRATROPIUM/ALBUTEROL 0.5-2.5 MG/3 ML AMPUL NEB SCH ×6 (00:05→20:09)
[2017-12-28] MEDS ORDERED: POTASSI CL 20 MEQ/50 ML RIDER 20 MEQ/50 ML RTUPB IV ONE (00:37)
[2017-12-28] MEDS: MIDAZOLAM HCL 50 MG/100 ML RTUINJ IV PRN ×2 (00:39→22:24)
[2017-12-28] MEDS: PIPERACILLIN SODIUM/TAZOBACTAM 3.375 GM in NORMAL SALINE 100 ML IV SCH ×4 (00:39→17:04)
[2017-12-28] MEDS: POTASSIUM CHLORIDE 20 MEQ/50 ML RTU IV SCH ×2 (00:42→02:37)
[2017-12-28] MEDS: PROPOFOL 1,000 MG/100 ML INFUS..BTL IV PRN ×5 (01:46→21:00)
[2017-12-28] MEDS: VANCOMYCIN HCL 1,000 MG in DEXTROSE 5%-WATER 250 ML IV SCH ×2 (01:47→09:49)
[2017-12-28] MEDS: METHYLPREDNISOLONE INJ 125 MG/2 ML SDV IV SCH ×3 (05:21→21:01)
[2017-12-28 05:46] LABS: ARTERIAL BLOOD H2CO3 1.35 mmol/L (1.05-1.35); ARTERIAL BLOOD HCO3 32.4 mmol/L (20-24); ARTERIAL BLOOD O2 SATURATION 95.7 % (94-98); ARTERIAL BLOOD PCO2 44.7 mmHg (35-45); ARTERIAL BLOOD PH 7.48 (7.35-7.45); ARTERIAL BLOOD PO2 74.3 mmHg (80-100); ARTERIAL BLOOD TOTAL CO2 33.8 mmol/L (21-25)
[2017-12-28] MEDS: LEVOTHYROXINE SODIUM 0.025 MG TABLET PO SCH (05:47)
[2017-12-28 05:49] LABS: ARTERIAL BLOOD FIO2 28%
[2017-12-28 06:46] LABS: ABSOLUTE RETICS # 0.047 10^6/uL (0.028-0.122); HEMATOCRIT 25.4 % (36.0-47.0); HEMOGLOBIN 8.2 g/dL (12.0-15.5); MEAN CORPUSCULAR HEMOGLOBIN 28.5 pg (27.0-33.4); MEAN CORPUSCULAR HGB CONC 32.5 g/dL (32.0-36.0); MEAN CORPUSCULAR VOLUME 88 fl (80-97); PLATELET COUNT 290 10^3/uL (150-450); RED BLOOD COUNT 2.89 10^6/uL (3.72-5.28); RED CELL DISTRIBUTION WIDTH 17.5 % (11.5-14.0); RETICULOCYTE COUNT (AUTO) 1.63 % (0.66-2.85); WHITE BLOOD COUNT 12.9 10^3/uL (4.0-10.5)
[2017-12-28 06:55] LABS: ALANINE AMINOTRANSFERASE 27 U/L (9-52); ALBUMIN 2.8 g/dL (3.5-5.0); ALKALINE PHOSPHATASE 72 U/L (38-126); ANION GAP 5 (5-19); ASPARTATE AMINO TRANSFERASE 23 U/L (14-36); BILIRUBIN,DIRECT 0.3 mg/dL (0.0-0.4); BILIRUBIN,TOTAL 0.3 mg/dL (0.2-1.3); BLOOD UREA NITROGEN 14 mg/dL (7-20); CALCIUM 7.8 mg/dL (8.4-10.2); CARBON DIOXIDE 33 mmol/L (22-30); CHLORIDE 100 mmol/L (98-107); GLUCOSE 127 mg/dL (75-110); IRON(TIBC) 37.1 ug/dL (37-170); POTASSIUM 3.8 mmol/L (3.6-5.0); SODIUM 138.4 mmol/L (137-145); TOTAL PROTEIN 5.2 g/dL (6.3-8.2)
[2017-12-28 07:04] LABS: ABSOLUTE LYMPHOCYTES# (MANUAL) 0.3 10^3/uL (0.5-4.7); ABSOLUTE MONOCYTES # (MANUAL) 0.6 10^3/uL (0.1-1.4); BASOPHILS % (MANUAL) 0 % (0-2); EOSINOPHILS % (MANUAL) 0 % (0-6); LYMPHOCYTES % (MANUAL) 2 % (13-45); MONOCYTES % (MANUAL) 5 % (3-13); NUCLEATED RED BLOOD CELLS 1 /100 WBC (0); SEGMENTED NEUTROPHILS % (MAN) 93 % (42-78); TOTAL CELLS COUNTED 100
[2017-12-28 07:05] LABS: ANISOCYTOSIS 1+; OVALOCYTES 1+; PLATELET COMMENT ADEQUATE; PLATELET LARGE PRESENT; POIKILOCYTOSIS 1+; POLYCHROMASIA SLIGHT; SCHISTOCYTES SLIGHT; TOXIC GRANULATION SLIGHT
[2017-12-28 08:01] LABS: FOLATE 9.24 ng/mL (>2.76)
--- NOTE | 2017-12-28 08:20 | RADIOLOGY REPORT (SQ) ---
EXAM DESCRIPTION: CHEST SINGLE VIEW COMPLETED DATE/TIME: 12/28/2017 7:12 am REASON FOR STUDY: intubation/ett verification/pna/copd COMPARISON: 12/27/2017. FINDINGS: Single-view chest AP portable upright at approximately 0701 hours. Appropriate endotracheal tube. Side hole of the nasogastric tube is in the region of the gastroesoph ageal junction. This tube could be advanced slightly. Left central line remains in place. Grossly stable changes of COPD. Hyperinflation and scarring without developing infiltrate. Stable c hest. TECHNICAL DOCUMENTATION: JOB ID: [id number] Reading location - IP/workstation name: [email or web address]
[2017-12-28] MEDS: PANTOPRAZOLE SODIUM 40 MG VIAL IV SCH ×2 (09:49→21:00)
--- NOTE | 2017-12-28 10:41 | PDOC PROGRESS REPORT ---
Subjective Progress Note for:: 12/28/17 Subjective:: Remain intubated and vent supported on IV Propofol sedation and nightly use of Midazolam. Currently on triple antibiotic coverage with IV Vancomycin, Zosyn and Levofloxacin. Episode of blood tinged gastric drainage since last clinical evaluation that may be due to stress gastritis. Currently on enteral feeding with Oxepa. No reported significant fever. Reason For Visit: ACUTE RESPIRATORY FAILURE,UTI,SEPSIS Physical Exam Vital Signs: Temp Pulse Resp BP Pulse Ox 100.0 F 92 14 142/75 H 99 12/28/17 08:00 12/28/17 07:44 12/28/17 08:00 12/28/17 07:33 12/28/17 08:00 Intake & Output 12/27/17 12/28/17 12/29/17 06:59 06:59 06:59 Intake Total 431 4358 1300 Output Total 585 1655 225 Balance -154 2703 1075 Weight 67.2 kg 68.5 kg Physical Exam: ET and OG tubes in situ. Sedated on IV Propofol infusion. Intubated and vent supported presently. Head exam: PRESENT: atraumatic, normocephalic Eye exam: PRESENT: PERRLA Ear exam: PRESENT: normal external ear exam Mouth exam: PRESENT: moist Respiratory exam: PRESENT: decreased breath sounds - at lung bases, rhonchi - minimal expiratory phase. Cardiovascular exam: PRESENT: RRR. ABSENT: diastolic murmur, rubs, systolic murmur Vascular exam: ABSENT: pallor GI/Abdominal exam: PRESENT: normal bowel sounds, soft. ABSENT: distended, mass , organolmegaly Gentrourinary exam: PRESENT: indwelling catheter Extremities exam: ABSENT: pedal edema Musculoskeletal exam: PRESENT: normal inspection Neurological exam: PRESENT: altered - sedated but withdraw to pain stimuli Skin exam: PRESENT: dry, warm Results Laboratory Results: 12/28/17 06:39 12/28/17 06:39 12/27/17 12/27/17 12/28/17 18:40 21:55 05:40 WBC 10.6 H RBC 2.99 L Hgb 8.7 L Hct 26.5 L MCV 88 MCH 28.9 MCHC 32.7 RDW 17.2 H Plt Count 306 Seg Neutrophils % Lymphocytes % Monocytes % Eosinophils % Basophils % Absolute Neutrophils Absolute Lymphocytes Absolute Monocytes Absolute Eosinophils Absolute Basophils Retic Count (auto) Absolute Retic Carbonic Acid 1.35 HCO3/H2CO3 Ratio 24:1 ABG pH 7.48 H ABG pCO2 44.7 ABG pO2 74.3 L ABG HCO3 32.4 H ABG O2 Saturation 95.7 ABG Base Excess 8.0 FiO2 28% Sodium Potassium 3.4 L Chloride Carbon Dioxide Anion Gap BUN Creatinine Est GFR ( Amer) Est GFR (Non-Af Amer) Glucose Calcium Magnesium Iron TIBC % Saturation Ferritin Total Bilirubin AST ALT Alkaline Phosphatase Total Protein Albumin Vitamin B12 Folate 12/28/17 12/28/17 06:39 06:39 WBC 12.9 H RBC 2.89 L Hgb 8.2 L Hct 25.4 L MCV 88 MCH 28.5 MCHC 32.5 RDW 17.5 H Plt Count 290 Seg Neutrophils % Not Reportable Lymphocytes % Not Reportable Monocytes % Not Reportable Eosinophils % Not Reportable Basophils % Not Reportable Absolute Neutrophils Not Reportable Absolute Lymphocytes Not Reportable Absolute Monocytes Not Reportable Absolute Eosinophils Not Reportable Absolute Basophils Not Reportable Retic Count (auto) 1.63 Absolute Retic 0.047 Carbonic Acid HCO3/H2CO3 Ratio ABG pH ABG pCO2 ABG pO2 ABG HCO3 ABG O2 Saturation ABG Base Excess FiO2 Sodium 138.4 Potassium 3.8 Chloride 100 Carbon Dioxide 33 H Anion Gap 5 BUN 14 Creatinine 0.40 L Est GFR ( Amer) > 60 Est GFR (Non-Af Amer) > 60 Glucose 127 H Calcium 7.8 L Magnesium 2.1 Iron 37.1 TIBC 331 % Saturation 11 Ferritin 25.70 Total Bilirubin 0.3 AST 23 ALT 27 Alkaline Phosphatase 72 Total Protein 5.2 L Albumin 2.8 L Vitamin B12 760.0 Folate 9.24 12/27/17 12/27/17 12/27/17 00:40 00:40 06:30 Creatine Kinase 36 26 L CK-MB (CK-2) 1.99 Troponin I < 0.012 12/27/17 12/27/17 12/27/17 06:30 12:35 12:35 Creatine Kinase 49 CK-MB (CK-2) 0.81 0.50 Troponin I < 0.012 < 0.012 Assessment & Plan - Diagnosis (1) Acute respiratory failure Qualifiers: Respiratory failure complication: hypoxia Qualified Code(s): J96.01 - Acute respiratory failure with hypoxia Is this a current diagnosis for this admission?: Yes Plan: Continue ventilatory support. Pulmonary consult input appreciated. Maintain soft wrist restraints as per protocol for care interruption. (2) COPD (chronic obstructive pulmonary disease) Qualifiers: COPD type: chronic bronchitis Is this a current diagnosis for this admission?: Yes Plan: Continue bronchodilators and IV Solu Medrol treatment. Obtain Chest X-ray and ABG in AM. (3) E. coli UTI (urinary tract infection) Is this a current diagnosis for this admission?: Yes Plan: Continue IV Zosyn coverage. (4) Gram-positive cocci in clusters Is this a current diagnosis for this admission?: Yes Plan: Maintain on IV Levofloxacin and Vancomycin pending organism identification and sensitivity findings. (5) Diabetes mellitus type 2 in nonobese Is this a current diagnosis for this admission?: Yes Plan: Continue Humalog insulin sliding scale coverage. Maintain on Oxepa nutritional support with infusion rate goal to 45ml/hour if gastric residual permits. (6) Hypokalemia due to inadequate potassium intake Is this a current diagnosis for this admission?: Yes Plan: Patient will receive replacement therapy. Obtain serum Mag level. (7) Anemia Qualifiers: Anemia type: iron deficiency Is this a current diagnosis for this admission?: Yes Plan: Monitor CBC indices and transfusion as indicated. Start on Iron and vitamin C supplementation. - Time Time Spent with patient: 35 or more minutes Total Critical Time (Minutes): 20 Medications reviewed and adjusted accordingly: Yes Anticipated discharge: Home with Homehealth Within: Other - Inpatient Certification Based on my medical assessment, after consideration of the patient's comorbidities, presenting symptoms, or acuity I expect that the services needed warrant INPATIENT care.: Yes I certify that my determination is in accordance with my understanding of Medicare's requirements for reasonable and necessary INPATIENT services [42 CFR 412.3e].: Yes Medical Necessity: Need Close Monitoring Due to Risk of Patient Decompensation, Need For IV Fluids, Need For Continuous Telemetry Monitoring, Need for Nebulizer Therapy and Monitoring of Response, Need for IV Antibiotics, Risk of Complication if Not Cared For in Hospital Post Hospital Care: D/C Communications Director Documentation - Plan Summary Plan Summary: I had update discussion with family. See attending physician orders.
[2017-12-28 11:05] LABS: VANCOMYCIN,TROUGH 10.3 ug/mL (5.0-20.0)
[2017-12-28] MEDS: NORMAL SALINE 1000 ML 1,000 ML IV PRN (12:10)
[2017-12-28] MEDS: ENOXAPARIN SODIUM INJ 40 MG/0.4 ML DISP.SYRIN SUBCUT SCH (12:12)
[2017-12-28] MEDS: VANCOMYCIN HCL 1,250 MG in DEXTROSE 5%-WATER 250 ML IV SCH (17:06)
[2017-12-28] MEDS: DOCUSATE SODIUM 100 MG CAPSULE PO SCH (19:00)
--- NOTE | 2017-12-28 19:51 | PROGRESS NOTE E ---
Progress Note NAME: BRYON BONILLA : 1960 AGE: 57Y DATE: 12/28/2017 ROOM: 607 SUBJECTIVE: The patient is a 57-year-old female who came in with acute respiratory failure requiring invasive mechanical ventilation, spiking a fever, severe shortness of breath, and wheezing due to bronchospasm. Treated for pneumonia and urosepsis. Sputum cultures are pending. The urine culture showed E. coli. Blood cultures still pending. Blood pressure has been stable overnight. The patient currently saturating 92%, requiring FiO2 of 28%. OBJECTIVE: GENERAL: The patient is sedated, febrile, not in apparent respiratory distress. VITAL SIGNS: Temperature of 100.2 with a T-max of 100.4, blood pressure is 130/63, heart rate is 88, respiratory rate is 16, saturation is 92-94% on FiO2 of 28%, SIMV PRVC with a rate of 16, tidal volume of 440, pressure support of 10, peak airway pressure of 29, total pressure of 24, minute ventilation of 7.528. EYES: No jaundice or pallor. EARS, NOSE, AND THROAT: No ear drainage. No nasal discharge. CHEST AND LUNGS: No coarse crackles noted. Wheezing bilaterally, but less intense than yesterday and 2 days ago. CARDIOVASCULAR: S1, S2 distinct. Normal rate, regular rhythm. ABDOMEN: Flabby, hypoactive bowel sounds, soft, slightly distended. EXTREMITIES: No joint swelling, no cellulitis. LABORATORY DATA: CBC done today showed a white count of 12.9, hemoglobin is 8.2, hematocrit is 35.4, platelet count is 290, segs 93%. Blood gas done at 5 in the morning shows pH of 7.48, pCO2 of 44.7, pO2 of 74.3, bicarb is 32.4, and ABG oxygen saturation of 95%. Chemistry shows sodium is 138, potassium is 3.8, chloride 100, CO2 is 33, BUN is 14, creatinine is 0.4, and glucose 137, calcium is 7.8, magnesium is 2.1, iron is 37.1, total bilirubin is 0.3, direct bilirubin is 0.3, SGOT is 33, SGPT 37, total protein is 5.2 which is low, albumin is 2.8. Urinalysis showed possible nitrites, a small amount of leukocyte esterase. Stool exam for C. diff is negative. Blood culture collected on 12/26, showed positive for gram-positive cocci in clusters. Urine culture on 12/26, showed an E. coli. Sputum culture 12/27, still pending. IMAGING STUDIES: Chest x-ray done today showed absence of pneumothorax. Tip of the endotracheal tube is about 2 cm above the regino and no new onset or pleural effusion. ASSESSMENT: 1. ACUTE RESPIRATORY FAILURE REQUIRING INVASIVE MECHANICAL VENTILATION. The patient currently is not ready to liberated from the ventilator yet. 2. FEVER. Probably it is due to urinary tract infection with E. coli. 3. PNEUMONIA. Cannot be completely excluded. 4. SEVERE COPD/ASTHMA and SEVERE BRONCHOSPASM. Appeared to be improving. PLAN/RECOMMENDATION: 1. Decrease Solu-Medrol dose to 80 mg IV q.8. 2. Continue nebulizer treatment. 3. Continue the Levaquin dose of 750 mg once daily every p.m. 4. Continue the Zosyn dose at 3.325 grams per IV q.6 hours. 5. Continue iv vancomycin. DICTATING PHYSICIAN: SHARON SMITH MD,PAOLA,MPH [id number] PHY#: [id number] ID: [id number] JOB#: [id number] ACCT: [id number] cc: > MTDD
[2017-12-28] MEDS: LEVOFLOXACIN 750 MG/D5W RTU 750 MG/150 ML RTUPB IV SCH (20:59)
[2017-12-29] MEDS: PIPERACILLIN SODIUM/TAZOBACTAM 3.375 GM in NORMAL SALINE 100 ML IV SCH ×4 (00:16→17:29)
[2017-12-29] MEDS: NORMAL SALINE 1000 ML 1,000 ML IV PRN ×2 (00:18→15:07)
[2017-12-29] MEDS: IPRATROPIUM/ALBUTEROL 0.5-2.5 MG/3 ML AMPUL NEB SCH ×6 (00:28→20:31)
[2017-12-29] MEDS: VANCOMYCIN HCL 1,250 MG in DEXTROSE 5%-WATER 250 ML IV SCH ×4 (01:35→17:51)
[2017-12-29] MEDS: PROPOFOL 1,000 MG/100 ML INFUS..BTL IV PRN ×5 (01:35→20:03)
[2017-12-29 04:19] LABS: ARTERIAL BLOOD BASE EXCESS 3.2 mmol/L; ARTERIAL BLOOD H2CO3 1.02 mmol/L (1.05-1.35); ARTERIAL BLOOD HCO3 26.2 mmol/L (20-24); ARTERIAL BLOOD O2 SATURATION 95.3 % (94-98); ARTERIAL BLOOD PH 7.51 (7.35-7.45); ARTERIAL BLOOD PO2 68.8 mmHg (80-100); ARTERIAL BLOOD TOTAL CO2 27.3 mmol/L (21-25); HEMATOCRIT 25.6 % (36.0-47.0); HEMOGLOBIN 8.4 g/dL (12.0-15.5); MEAN CORPUSCULAR HEMOGLOBIN 28.6 pg (27.0-33.4); MEAN CORPUSCULAR HGB CONC 32.7 g/dL (32.0-36.0); MEAN CORPUSCULAR VOLUME 87 fl (80-97); PLATELET COUNT 302 10^3/uL (150-450); RED BLOOD COUNT 2.93 10^6/uL (3.72-5.28); RED CELL DISTRIBUTION WIDTH 17.6 % (11.5-14.0); WHITE BLOOD COUNT 15.1 10^3/uL (4.0-10.5)
[2017-12-29 04:20] LABS: ARTERIAL BLOOD FIO2 25%
[2017-12-29 04:37] LABS: ALANINE AMINOTRANSFERASE 26 U/L (9-52); ALBUMIN 2.8 g/dL (3.5-5.0); ALKALINE PHOSPHATASE 68 U/L (38-126); ANION GAP 7 (5-19); ASPARTATE AMINO TRANSFERASE 20 U/L (14-36); BILIRUBIN,DIRECT 0.3 mg/dL (0.0-0.4); BILIRUBIN,TOTAL 0.3 mg/dL (0.2-1.3); BLOOD UREA NITROGEN 14 mg/dL (7-20); CALCIUM 7.9 mg/dL (8.4-10.2); CARBON DIOXIDE 30 mmol/L (22-30); CHLORIDE 100 mmol/L (98-107); GLUCOSE 140 mg/dL (75-110); POTASSIUM 3.1 mmol/L (3.6-5.0); SODIUM 136.6 mmol/L (137-145); TOTAL PROTEIN 5.2 g/dL (6.3-8.2)
[2017-12-29 04:45] LABS: ABSOLUTE LYMPHOCYTES# (MANUAL) 0.2 10^3/uL (0.5-4.7); ABSOLUTE MONOCYTES # (MANUAL) 0.6 10^3/uL (0.1-1.4); ABSOLUTE NEUTROPHILS# (MANUAL) 14.3 10^3/uL (1.7-8.2); ANISOCYTOSIS 1+; BAND NEUTROPHILS % (MANUAL) 7 % (3-5); BASOPHILS % (MANUAL) 0 % (0-2); EOSINOPHILS % (MANUAL) 0 % (0-6); LYMPHOCYTES % (MANUAL) 0 % (13-45); MONOCYTES % (MANUAL) 4 % (3-13); NUCLEATED RED BLOOD CELLS 1 /100 WBC (0); PLATELET COMMENT ADEQUATE; POLYCHROMASIA SLIGHT; SEGMENTED NEUTROPHILS % (MAN) 88 % (42-78); TOTAL CELLS COUNTED 100; TOXIC GRANULATION SLIGHT; TOXIC VACUOLATION PRESENT
[2017-12-29] MEDS: LEVOTHYROXINE SODIUM 0.025 MG TABLET PO SCH (05:17)
[2017-12-29] MEDS: METHYLPREDNISOLONE INJ 125 MG/2 ML SDV IV SCH ×3 (05:17→21:35)
[2017-12-29] MEDS: POTASSIUM CHLORIDE 20 MEQ/50 ML RTU IV SCH ×2 (05:45→07:46)
--- NOTE | 2017-12-29 06:52 | RADIOLOGY REPORT (SQ) ---
EXAM DESCRIPTION: XR CHEST 1 VIEW COMPLETED DATE/TME: 12/29/2017 05:00 CLINICAL HISTORY: 57 years Female, on ventilator COMPARISON: One day prior. NUMBER OF VIEWS/TECHNIQUE: 1/AP FINDINGS: Increased lung volume, prominent interstitium, normal cardiac silhouette, atherosclerosis, tip of an endotracheal tube is 5.1 cm from the regino, adequate appearing enteric tube obscured distally, left subclavian central line tip at the SVC. No pneumothorax. Stable bony thorax. IMPRESSION: No significant change.
--- NOTE | 2017-12-29 09:25 | PDOC PROGRESS REPORT ---
Subjective Progress Note for:: 12/29/17 Subjective:: Episodes of gastric distention and increase bowel movement since last clinical evaluation. C.difficile and occult blood status were negative. Low grade fever persist. Remain on triple antibiotic coverage. IV Solu Medrol on downward dosing with worsening leukocytosis. Remain sedated on IV Propofol. Reason For Visit: ACUTE RESPIRATORY FAILURE,UTI,SEPSIS Physical Exam Vital Signs: Temp Pulse Resp BP Pulse Ox 99.7 F 85 17 133/70 H 96 12/29/17 08:00 12/29/17 08:14 12/29/17 08:14 12/29/17 08:00 12/29/17 08:14 Intake & Output 12/28/17 12/29/17 12/30/17 06:59 06:59 06:59 Intake Total 4358 4400 186 Output Total 1655 1525 190 Balance 2703 2875 -4 Weight 68.5 kg 71.1 kg Physical Exam: ET and OG tubes in situ. Sedated on IV Propofol infusion. Intubated and vent supported presently. Head exam: PRESENT: atraumatic, normocephalic Eye exam: PRESENT: PERRLA Ear exam: PRESENT: normal external ear exam Mouth exam: PRESENT: moist Respiratory exam: PRESENT: decreased breath sounds - at lung bases, rhonchi - minimal expiratory phase. Cardiovascular exam: PRESENT: RRR. ABSENT: diastolic murmur, rubs, systolic murmur Vascular exam: ABSENT: pallor GI/Abdominal exam: PRESENT: normal bowel sounds, soft. ABSENT: distended, mass , organolmegaly Gentrourinary exam: PRESENT: indwelling catheter Extremities exam: ABSENT: pedal edema Musculoskeletal exam: PRESENT: normal inspection Neurological exam: PRESENT: altered - sedated but withdraw to pain stimuli Skin exam: PRESENT: dry, warm Results Laboratory Results: 12/29/17 04:00 12/29/17 04:00 12/28/17 12/29/17 12/29/17 13:15 04:00 04:00 WBC 15.1 H RBC 2.93 L Hgb 8.4 L Hct 25.6 L MCV 87 MCH 28.6 MCHC 32.7 RDW 17.6 H Plt Count 302 Seg Neutrophils % Not Reportable Lymphocytes % Not Reportable Monocytes % Not Reportable Eosinophils % Not Reportable Basophils % Not Reportable Absolute Neutrophils Not Reportable Absolute Lymphocytes Not Reportable Absolute Monocytes Not Reportable Absolute Eosinophils Not Reportable Absolute Basophils Not Reportable Carbonic Acid 1.02 L HCO3/H2CO3 Ratio 25:1 ABG pH 7.51 H ABG pCO2 34.0 L ABG pO2 68.8 L ABG HCO3 26.2 H ABG O2 Saturation 95.3 ABG Base Excess 3.2 FiO2 25% Sodium Potassium Chloride Carbon Dioxide Anion Gap BUN Creatinine Est GFR ( Amer) Est GFR (Non-Af Amer) Glucose Calcium Magnesium Total Bilirubin AST ALT Alkaline Phosphatase Total Protein Albumin Stool Occult Blood NEGATIVE 12/29/17 04:00 WBC RBC Hgb Hct MCV MCH MCHC RDW Plt Count Seg Neutrophils % Lymphocytes % Monocytes % Eosinophils % Basophils % Absolute Neutrophils Absolute Lymphocytes Absolute Monocytes Absolute Eosinophils Absolute Basophils Carbonic Acid HCO3/H2CO3 Ratio ABG pH ABG pCO2 ABG pO2 ABG HCO3 ABG O2 Saturation ABG Base Excess FiO2 Sodium 136.6 L Potassium 3.1 L Chloride 100 Carbon Dioxide 30 Anion Gap 7 BUN 14 Creatinine 0.44 L Est GFR ( Amer) > 60 Est GFR (Non-Af Amer) > 60 Glucose 140 H Calcium 7.9 L Magnesium 2.1 Total Bilirubin 0.3 AST 20 ALT 26 Alkaline Phosphatase 68 Total Protein 5.2 L Albumin 2.8 L Stool Occult Blood 12/27/17 12/27/17 12/27/17 00:40 00:40 06:30 Creatine Kinase 36 26 L CK-MB (CK-2) 1.99 Troponin I < 0.012 12/27/17 12/27/17 12/27/17 06:30 12:35 12:35 Creatine Kinase 49 CK-MB (CK-2) 0.81 0.50 Troponin I < 0.012 < 0.012 Impressions: Chest X-Ray 12/29/17 05:00 IMPRESSION: No significant change. Assessment & Plan - Diagnosis (1) Acute respiratory failure Qualifiers: Respiratory failure complication: hypoxia Qualified Code(s): J96.01 - Acute respiratory failure with hypoxia Is this a current diagnosis for this admission?: Yes (2) COPD (chronic obstructive pulmonary disease) Qualifiers: COPD type: chronic bronchitis Is this a current diagnosis for this admission?: Yes (3) E. coli UTI (urinary tract infection) Is this a current diagnosis for this admission?: Yes (4) Gram-positive cocci in clusters Is this a current diagnosis for this admission?: Yes (5) Diabetes mellitus type 2 in nonobese Is this a current diagnosis for this admission?: Yes (6) Hypokalemia due to inadequate potassium intake Is this a current diagnosis for this admission?: Yes (7) Anemia Qualifiers: Anemia type: iron deficiency Is this a current diagnosis for this admission?: Yes - Time Time Spent with patient: 25-34 minutes Medications reviewed and adjusted accordingly: Yes Anticipated discharge: SNF Within: Other - Inpatient Certification Based on my medical assessment, after consideration of the patient's comorbidities, presenting symptoms, or acuity I expect that the services needed warrant INPATIENT care.: Yes I certify that my determination is in accordance with my understanding of Medicare's requirements for reasonable and necessary INPATIENT services [42 CFR 412.3e].: Yes Medical Necessity: Need Close Monitoring Due to Risk of Patient Decompensation, Need For Continuous Telemetry Monitoring, Need for Nebulizer Therapy and Monitoring of Response, Need for IV Antibiotics, Risk of Complication if Not Cared For in Hospital Post Hospital Care: D/C or Transfer Summary - Plan Summary Plan Summary: See covering attending physician orders.
[2017-12-29] MEDS: DOCUSATE SODIUM 100 MG CAPSULE PO SCH ×2 (10:01→17:28)
[2017-12-29] MEDS: ENOXAPARIN SODIUM INJ 40 MG/0.4 ML DISP.SYRIN SUBCUT SCH (10:14)
[2017-12-29] MEDS: PANTOPRAZOLE SODIUM 40 MG VIAL IV SCH (10:14)
[2017-12-29] MEDS ORDERED: POTASSIUM CHLORIDE 20 MEQ/15 ML UDCUP ONE ×2 (14:38→17:18)
[2017-12-29] MEDS ORDERED: ACETAMINOPHEN SOLN 325 MG/10.15 ML UDCUP ONE (14:53)
[2017-12-29] MEDS ORDERED: POTASSIUM CHLORIDE 20 MEQ/15 ML UDCUP PO ONE (15:00)
[2017-12-29] MEDS: MIDAZOLAM HCL 50 MG/100 ML RTUINJ IV PRN (17:29)
[2017-12-29] MEDS ORDERED: ACETAMINOPHEN 650 MG SUPP.RECT PR PRN (18:08)
[2017-12-29 18:13] LABS: VANCOMYCIN,TROUGH 23.9 ug/mL (5.0-20.0)
[2017-12-29] MEDS: LEVOFLOXACIN 750 MG/D5W RTU 750 MG/150 ML RTUPB IV SCH (21:35)
--- NOTE | 2017-12-29 21:41 | PROGRESS NOTE E ---
Progress Note NAME: BRYON BONILLA : 1960 AGE: 57Y DATE: 12/29/2017 ROOM: 607 SUBJECTIVE: Patient is a 57-year-old female who came in with acute respiratory failure, requiring invasive mechanical ventilation. Fever seems to resolve intermittently, responding to Tylenol administration. Patient has endotracheal tube secretions which seem to be mild to moderate, requiring suctioning by ICU nurse every 1 to 2 hours, mild to moderate amount. No vomiting noted. Patient did not tolerate the OG tube feeding last night. Able to move her bowels, a large amount today, 2 to 3 times. Abdomen seems not as much distended. Restarted on OG feeding at 10 mL/hr. No diarrhea noted. OBJECTIVE: GENERAL: Patient is sedated, afebrile, not in apparent respiratory distress. VITAL SIGNS: Temperature of 99.9. It was 100.2 earlier. Blood pressure is 129/57, pulse rate of 97, respiratory rate of 16, not breathing over the vent. Currently on SIMV rate of 16, tidal volume of 440, respiratory rate 16, saturation 95% on FiO2 of 25%, pressure support 10, PEEP of 5, peak airway pressure is 27, plateau pressure is 23. MAP ventilation of 728. EYES: No jaundice or pallor. EARS, NOSE AND THROAT: No ear drainage. No nasal discharge. CHEST: No wheezing, no rhonchi, no coarse crackles. ABDOMEN: Flabby. Positive bowel sounds. Soft, nondistended, nontender. EXTREMITIES: No joint swelling or synovitis. LABORATORY DATA: CBC done today showed white count of 15.1, from 12.9 yesterday. Hemoglobin is 8.4, hematocrit is 25.6, platelet count is 302,000, bands are 7%. ABGs done today show bicarb 7.51, pCO2 of 34, pO2 is 58.8 on oxygen saturation of 95.3. Chemistry done today shows sodium was 100, potassium was 3.4, chloride 100, CO2 is 13, BUN is 14, creatinine is 0.44 and glucose 140, calcium 7.9. Albumin is 2.8, total protein is 5.2. Chest x-ray showed no pneumothorax, no infiltrates. ASSESSMENT: 1. ACUTE RESPIRATORY FAILURE REQUIRING INVASIVE MECHANICAL VENTILATION. Appears to be improving, requiring less FiO2. The peak airway pressure is normal and plateau pressure normal. 2. SEVERE COPD IN ACUTE EXACERBATION, CURRENTLY IMPROVING. No apparent wheezing this evening. PLAN/RECOMMENDATIONS: 1. Will do spontaneous breathing trial tomorrow after weaning off IV sedation.. 2. Continue the albuterol nebulizer treatment every 6 hours. 3. Continue GI and DVT prophylaxis. 4. Will decrease the Solu-Medrol to 60 mg IV q.8 hours today. 5. Will continue the Zosyn, Levaquin and Vicodin for now. 6. Will continue to follow. DICTATING PHYSICIAN: SHARON SMITH MD,PAOLA,MPH [id number] PHY#: [id number] [id number] JOB#: [id number] ACCT: [id number] cc: > MTDD
[2017-12-30] MEDS: PIPERACILLIN SODIUM/TAZOBACTAM 3.375 GM in NORMAL SALINE 100 ML IV SCH ×4 (00:02→17:02)
[2017-12-30] MEDS: IPRATROPIUM/ALBUTEROL 0.5-2.5 MG/3 ML AMPUL NEB SCH ×6 (00:46→21:00)
[2017-12-30] MEDS: PROPOFOL 1,000 MG/100 ML INFUS..BTL IV PRN ×6 (01:00→21:38)
[2017-12-30] MEDS: VANCOMYCIN HCL 1,250 MG in DEXTROSE 5%-WATER 250 ML IV SCH ×2 (01:01→17:50)
[2017-12-30] MEDS: MIDAZOLAM HCL 50 MG/100 ML RTUINJ IV PRN ×2 (02:21→21:50)
[2017-12-30 04:34] LABS: ARTERIAL BLOOD BASE EXCESS 4.3 mmol/L; ARTERIAL BLOOD H2CO3 1.06 mmol/L (1.05-1.35); ARTERIAL BLOOD HCO3 27.5 mmol/L (20-24); ARTERIAL BLOOD O2 SATURATION 97.9 % (94-98); ARTERIAL BLOOD PCO2 35.3 mmHg (35-45); ARTERIAL BLOOD PH 7.51 (7.35-7.45); ARTERIAL BLOOD PO2 95.6 mmHg (80-100); ARTERIAL BLOOD TOTAL CO2 28.6 mmol/L (21-25)
[2017-12-30 04:35] LABS: ARTERIAL BLOOD FIO2 25%
[2017-12-30] MEDS: NORMAL SALINE 1000 ML 1,000 ML IV PRN ×2 (04:37→17:00)
[2017-12-30 04:54] LABS: ANION GAP 5 (5-19); BLOOD UREA NITROGEN 13 mg/dL (7-20); CALCIUM 8.1 mg/dL (8.4-10.2); CARBON DIOXIDE 31 mmol/L (22-30); CHLORIDE 104 mmol/L (98-107); GLUCOSE 121 mg/dL (75-110); POTASSIUM 3.6 mmol/L (3.6-5.0); SODIUM 139.6 mmol/L (137-145)
[2017-12-30] MEDS: LEVOTHYROXINE SODIUM 0.025 MG TABLET PO SCH (05:07)
[2017-12-30] MEDS: METHYLPREDNISOLONE INJ 125 MG/2 ML SDV IV SCH (05:07)
--- NOTE | 2017-12-30 06:57 | RADIOLOGY REPORT (SQ) ---
EXAM DESCRIPTION: XR CHEST 1 VIEW COMPLETED DATE/TME: 12/30/2017 06:00 CLINICAL HISTORY: 57 years Female, ett/ogt/copd/pna COMPARISON: One day prior. NUMBER OF VIEWS/TECHNIQUE: 1/AP FINDINGS: Increased lung volume, prominent interstitium, normal cardiac silhouette, adequate appearing endotracheal tube tip is 5.0 cm from the regino, likely adequate enteric tube obscured distally, left subclavian central line tip at the SVC. No pneumothorax. Stable bony thorax. IMPRESSION: No significant change.
[2017-12-30] MEDS: DOCUSATE SODIUM 100 MG CAPSULE PO SCH ×2 (10:26→17:02)
[2017-12-30] MEDS: PANTOPRAZOLE SODIUM 40 MG VIAL IV SCH (11:12)
[2017-12-30] MEDS: ENOXAPARIN SODIUM INJ 40 MG/0.4 ML DISP.SYRIN SUBCUT SCH (11:12)
[2017-12-30 12:06] LABS: HEMATOCRIT 25.1 % (36.0-47.0); HEMOGLOBIN 8.1 g/dL (12.0-15.5); MEAN CORPUSCULAR HEMOGLOBIN 28.5 pg (27.0-33.4); MEAN CORPUSCULAR HGB CONC 32.3 g/dL (32.0-36.0); MEAN CORPUSCULAR VOLUME 88 fl (80-97); PLATELET COUNT 317 10^3/uL (150-450); RED BLOOD COUNT 2.84 10^6/uL (3.72-5.28); RED CELL DISTRIBUTION WIDTH 17.8 % (11.5-14.0); WHITE BLOOD COUNT 19.1 10^3/uL (4.0-10.5)
[2017-12-30 12:31] LABS: ABSOLUTE MONOCYTES # (MANUAL) 1.9 10^3/uL (0.1-1.4); ABSOLUTE NEUTROPHILS# (MANUAL) 17.2 10^3/uL (1.7-8.2); BAND NEUTROPHILS % (MANUAL) 1 % (3-5); BASOPHILS % (MANUAL) 0 % (0-2); EOSINOPHILS % (MANUAL) 0 % (0-6); LYMPHOCYTES % (MANUAL) 0 % (13-45); METAMYELOCYTES % (MANUAL) 2 % (0); MONOCYTES % (MANUAL) 10 % (3-13); MYELOCYTES % (MANUAL) 2 % (0); NUCLEATED RED BLOOD CELLS 1 /100 WBC (0); SEGMENTED NEUTROPHILS % (MAN) 85 % (42-78); TOTAL CELLS COUNTED 100
[2017-12-30 12:34] LABS: ANISOCYTOSIS 2+; HYPOCHROMASIA 1+; OVALOCYTES 1+; PLATELET COMMENT ADEQUATE; POIKILOCYTOSIS 1+; POLYCHROMASIA 1+; TOXIC GRANULATION SLIGHT
--- NOTE | 2017-12-30 12:39 | RADIOLOGY REPORT (SQ) ---
EXAM DESCRIPTION: KUB/ABDOMEN (SINGLE VIEW) COMPLETED DATE/TIME: 12/30/2017 9:41 am REASON FOR STUDY: rule out ileus COMPARISON: 06/10/2017 NUMBER OF VIEWS: One view. TECHNIQUE: Supine radiographic image of the abdomen acquired. LIMITATIONS: None. FINDINGS: BOWEL GAS PATTERN: Dilated loops of small bowel in the left upper quadrant. CALCIFICATIONS: No suspicious calcifications. SOFT TISSUES: No gross mass or suggestion of organomegaly. HARDWARE: None. BONES: No bone lesions or fracture. OTHER: Nasogastric tube tip in the stomach. Tenorio catheter. IMPRESSION: Ileus or partial small bowel obstruction. Reading location - IP/workstation name: [email or web address]
[2017-12-30] MEDS ORDERED: METHYLPREDNISOLONE INJ 125 MG/2 ML SDV IV SCH (13:07)
--- NOTE | 2017-12-30 13:11 | PDOC PROGRESS REPORT ---
Subjective Progress Note for:: 12/30/17 Subjective:: Patient is currently doing same Still intubated Patient is alert awake with the tubes There is no any blood in the stools Patient's white count is elevated Reason For Visit: ACUTE RESPIRATORY FAILURE,UTI,SEPSIS Physical Exam Vital Signs: Temp Pulse Resp BP Pulse Ox 100.0 F 81 16 135/71 H 96 12/30/17 12:00 12/30/17 12:27 12/30/17 12:27 12/30/17 11:36 12/30/17 12:27 Intake & Output 12/29/17 12/30/17 12/31/17 06:59 06:59 06:59 Intake Total 4400 4167 200 Output Total 1525 2720 1200 Balance 2875 1447 -1000 Weight 71.1 kg 71.9 kg Physical Exam: Currently intubated under's ventilations General appearance: PRESENT: no acute distress Eye exam: PRESENT: PERRLA Mouth exam: PRESENT: neck supple Respiratory exam: PRESENT: clear to auscultation wilfredo Cardiovascular exam: PRESENT: +S1, +S2 GI/Abdominal exam: PRESENT: hypoactive bowel sounds, soft. ABSENT: tenderness Extremities exam: ABSENT: pedal edema Neurological exam: PRESENT: alert, altered, awake Skin exam: PRESENT: dry Results Laboratory Results: 12/30/17 11:15 12/30/17 04:10 12/29/17 12/29/17 12/30/17 12:15 19:30 04:10 WBC RBC Hgb Hct MCV MCH MCHC RDW Plt Count Seg Neutrophils % Lymphocytes % Monocytes % Eosinophils % Basophils % Absolute Neutrophils Absolute Lymphocytes Absolute Monocytes Absolute Eosinophils Absolute Basophils Carbonic Acid 1.06 HCO3/H2CO3 Ratio 25:1 ABG pH 7.51 H ABG pCO2 35.3 ABG pO2 95.6 ABG HCO3 27.5 H ABG O2 Saturation 97.9 ABG Base Excess 4.3 FiO2 25% Sodium Potassium 3.4 L 4.0 Chloride Carbon Dioxide Anion Gap BUN Creatinine Est GFR ( Amer) Est GFR (Non-Af Amer) Glucose Calcium 12/30/17 12/30/17 04:10 11:15 WBC 19.1 H RBC 2.84 L Hgb 8.1 L Hct 25.1 L MCV 88 MCH 28.5 MCHC 32.3 RDW 17.8 H Plt Count 317 Seg Neutrophils % Not Reportable Lymphocytes % Not Reportable Monocytes % Not Reportable Eosinophils % Not Reportable Basophils % Not Reportable Absolute Neutrophils Not Reportable Absolute Lymphocytes Not Reportable Absolute Monocytes Not Reportable Absolute Eosinophils Not Reportable Absolute Basophils Not Reportable Carbonic Acid HCO3/H2CO3 Ratio ABG pH ABG pCO2 ABG pO2 ABG HCO3 ABG O2 Saturation ABG Base Excess FiO2 Sodium 139.6 Potassium 3.6 Chloride 104 Carbon Dioxide 31 H Anion Gap 5 BUN 13 Creatinine 0.56 Est GFR ( Amer) > 60 Est GFR (Non-Af Amer) > 60 Glucose 121 H Calcium 8.1 L 12/27/17 00:05 Tracheal Aspirate Gram Stain - Final 12/27/17 00:05 Tracheal Aspirate Sputum Culture - Final Streptococcus Pneumoniae Haemophilus Influenzae 12/27/17 12/27/17 12/27/17 00:40 00:40 06:30 Creatine Kinase 36 26 L CK-MB (CK-2) 1.99 Troponin I < 0.012 12/27/17 12/27/17 12/27/17 06:30 12:35 12:35 Creatine Kinase 49 CK-MB (CK-2) 0.81 0.50 Troponin I < 0.012 < 0.012 Impressions: Chest X-Ray 12/30/17 06:00 IMPRESSION: No significant change. KUB X-Ray 12/30/17 08:57 IMPRESSION: Ileus or partial small bowel obstruction. Assessment & Plan - Diagnosis (1) Acute respiratory failure Qualifiers: Respiratory failure complication: hypoxia Qualified Code(s): J96.01 - Acute respiratory failure with hypoxia Is this a current diagnosis for this admission?: Yes Plan: Continues to ventilation support follow with the pulmonary (2) Urinary tract infection Qualifiers: Urinary tract infection type: site unspecified Is this a current diagnosis for this admission?: Yes Plan: Continuous IV antibiotic (3) Depression Qualifiers: Depression Type: major depressive disorder Is this a current diagnosis for this admission?: Yes Plan: Patients follow with the psych (4) COPD exacerbation Is this a current diagnosis for this admission?: Yes Plan: Continues to nebulizer treatment and continues to steroid per the pulmonary (5) Diabetes Qualifiers: Diabetes mellitus type: type 2 Is this a current diagnosis for this admission?: Yes Plan: Continues to sliding-scale (6) Generalized anxiety disorder Is this a current diagnosis for this admission?: Yes Plan: Once the patient extubated will restart the patient's psych medications (7) Hypertension Qualifiers: Hypertension type: essential hypertension Is this a current diagnosis for this admission?: Yes Plan: Currently all stable (8) Gastroesophageal reflux disease Qualifiers: Esophagitis presence: without esophagitis Qualified Code(s): K21.9 - Gastro -esophageal reflux disease without esophagitis Is this a current diagnosis for this admission?: Yes Plan: Continues to Protonix (9) Anemia Qualifiers: Anemia type: iron deficiency Is this a current diagnosis for this admission?: Yes Plan: Continues to Protonix will follow with the Dr. Quiroga (10) Ileus Is this a current diagnosis for this admission?: Yes Plan: Continues to NG tube with the patient has significant history of a small bowel obstruction in the past and a chronic ileus consult general surgery for further evaluations - Time Time Spent with patient: 25-34 minutes Total Critical Time (Minutes): 35 Medications reviewed and adjusted accordingly: Yes Anticipated discharge: SNF Within: Other - Inpatient Certification Based on my medical assessment, after consideration of the patient's comorbidities, presenting symptoms, or acuity I expect that the services needed warrant INPATIENT care.: Yes I certify that my determination is in accordance with my understanding of Medicare's requirements for reasonable and necessary INPATIENT services [42 CFR 412.3e].: Yes Medical Necessity: Need Close Monitoring Due to Risk of Patient Decompensation, Need For IV Fluids, Need for IV Antibiotics Post Hospital Care: D/C [employer] Documentation - Plan Summary Plan Summary: Continuous IV antibiotics Follow with the pulmonary and consult the surgery and the GI Very extensive discussed with the patient's power of environmental attorney regarding the patient's current conditions
[2017-12-30] MEDS ORDERED: METHYLPREDNISOLONE INJ 40 MG/1 ML SDV IV SCH (14:00)
--- NOTE | 2017-12-30 14:40 | PDOC CONSULTATION ---
Consultation Consult Date: 12/30/17 Attending physician:: GABRIEL BARBOUR Consult reason:: blood in mouth? rule out GI bleeding History of Present Illness Admission Date/PCP: 12/26/17 21:15 SILVINA KABA MD History of Present Illness: BRYON BONILLA is a 57 year old female I was asked to see this patient by Dr Kaba apparently was noted to have some blood in mouth has been seen by both surgery and pulmonary remains intubated and remains in ICU patient as chronic anemia was referred to [facility] in the past has multiple tubes, ET, NG and so blood in certainly not specific could be due to oral injury patient's NG tube is not draining any blood there is no melena she might need EGD at some point does not appear to be urgent at this time Past Medical History Cardiac Medical History: Reports: Hypertension Denies: Coronary Artery Disease, Myocardial Infarction Pulmonary Medical History: Reports: Asthma, Bronchitis, Chronic Obstructive Pulmonary Disease (COPD), Pneumonia Denies: Tuberculosis Neurological Medical History: Denies: Seizures Endocrine Medical History: Reports: Diabetes Mellitus Type 2 GI Medical History: Reports: Gastroesophageal Reflux Disease, Hiatal Hernia Denies: Hepatitis Musculoskeltal Medical History: Reports: Arthritis Psychiatric Medical History: Reports: Depression, Schizoaffective Disorder Hematology: Denies: Anemia, Sickle Cell Disease Past Surgical History Past Surgical History: Reports: Appendectomy, Section, Cholecystectomy , Hysterectomy, Other - Nate fundoplication, ventral herniorraphy 15 yrs ago Denies: Amputation, Mastectomy, Pacemaker Social History Lives with: Half-Way Smoking Status: Former Smoker Frequency of Alcohol Use: None Hx Recreational Drug Use: No Drugs: None Hx Prescription Drug Abuse: No - Advance Directive Resuscitation Status: Full Code Family History Family History: CAD, COPD, Hypertension, Malignancy Parental Family History Reviewed: Yes Children Family History Reviewed: Unknown Sibling(s) Family History Reviewed.: Unknown Medication/Allergy Home Medications: Albuterol Sulfate [Proair HFA Inhalation Aerosol 8.5 gm MDI] 2 puff IN Q6HP PRN 12/26/17 Amlodipine Besylate [Norvasc 2.5 mg Tablet] 2.5 mg PO DAILY 12/26/17 Aspirin [Ecotrin 81 mg EC Tablet] 81 mg PO DAILY 12/26/17 Benzonatate [Tessalon Perle 100 mg Capsule] 100 mg PO TIDP PRN 12/26/17 Dicyclomine HCl [Bentyl 10 mg Capsule] 10 mg PO TID 12/26/17 Ferrous Sulfate 324 mg PO BID 12/26/17 Furosemide [Lasix 20 mg Tablet] 20 mg PO Q3D 12/26/17 Gabapentin [Neurontin 100 mg Capsule] 100 mg PO Q8 12/26/17 Ipratropium/Albuterol Sulfate [Iprat-Albut 0.5-3(2.5) mg/3 ml] 3 ml NEB Q6 12/26 Levothyroxine Sodium [Synthroid 0.025 mg Tablet] 0.025 mg PO Q6AM 12/26/17 Lorazepam [Ativan 1 mg Tablet] 1 mg PO Q6HP PRN 12/26/17 Omeprazole 40 mg PO DAILY 12/26/17 Ondansetron HCl [Zofran 4 mg Tablet] 4 mg PO Q6HP PRN 12/26/17 Quetiapine Fumarate [Seroquel 100 mg Tablet] 150 mg PO BID@0800,1200 12/26/17 Quetiapine Fumarate [Seroquel] 400 mg PO QHS 12/26/17 Roflumilast [Daliresp 500 mcg Tablet] 500 mcg PO DAILY 12/26/17 Rosuvastatin Calcium [Crestor 10 mg Tablet] 10 mg PO DAILY 12/26/17 Sertraline HCl [Zoloft 50 mg Tablet] 50 mg PO QAM 12/26/17 Tamsulosin HCl [Flomax 0.4 mg Cap.sr] 0.4 mg PO DAILY 12/26/17 Umeclidinium [place] [Incruse Ellipta] 1 puff IH DAILY 12/26/17 Zolpidem Tartrate [Ambien 5 mg Tablet] 5 mg PO QHS 12/26/17 Allergies/Adverse Reactions: clarithromycin [From Biaxin] Allergy (Severe, Verified 12/26/17 19:20) TONGUE/THROAT SWELLING furosemide [From Lasix] Allergy (Intermediate, Verified 12/26/17 19:20) UNSURE venlafaxine HCl [From Effexor] Allergy (Intermediate, Verified 12/26/17 19:20) MUSCLE WEAKNESS adhesive tape Allergy (Verified 12/26/17 19:20) RASH divalproex sodium [From Depakote] Allergy (Verified 12/26/17 19:20) UNSURE Review of Systems Constitutional: ABSENT: fever(s), headache(s), night sweats Eyes: ABSENT: visual disturbances Ears: ABSENT: hearing changes Nose, Mouth, and Throat: ABSENT: mouth pain Cardiovascular: ABSENT: edema, palpitations Gastrointestinal: ABSENT: hematochezia, melena, nausea, vomiting Genitourinary: ABSENT: dysuria, hematuria Musculoskeletal: ABSENT: joint swelling Neurological: ABSENT: syncope, tingling, tremor(s), vertigo Endocrine: ABSENT: polydipsia, polyphagia, polyuria Hematologic/Lymphatic: ABSENT: easy bruising Physical Exam Vital Signs: Temp Pulse Resp BP Pulse Ox 100.0 F 81 16 135/71 H 96 12/30/17 12:00 12/30/17 12:27 12/30/17 12:27 12/30/17 11:36 12/30/17 12:27 Intake & Output 12/29/17 12/30/17 12/31/17 06:59 06:59 06:59 Intake Total 4400 4167 358 Output Total 1525 2720 1200 Balance 2875 1447 -842 Weight 71.1 kg 71.9 kg General appearance: PRESENT: no acute distress, well-developed, well-nourished Head exam: PRESENT: atraumatic, normocephalic Eye exam: PRESENT: EOMI, PERRLA. ABSENT: nystagmus, scleral icterus Mouth exam: PRESENT: moist, neck supple Throat exam: ABSENT: tonsillar exudate, tonsillogmegaly Respiratory exam: PRESENT: symmetrical, unlabored. ABSENT: wheezes Cardiovascular exam: PRESENT: RRR, +S1, +S2 GI/Abdominal exam: PRESENT: soft. ABSENT: rebound, rigid, tenderness Extremities exam: ABSENT: joint swelling Musculoskeletal exam: PRESENT: full ROM Neurological exam: PRESENT: oriented to time, oriented to situation, CN II-XII grossly intact Focused psych exam: ABSENT: restlessness Skin exam: PRESENT: normal color. ABSENT: mottled, pallor, vesicles Results Laboratory Results: 12/30/17 11:15 12/30/17 04:10 12/29/17 12/30/17 12/30/17 19:30 04:10 04:10 WBC RBC Hgb Hct MCV MCH MCHC RDW Plt Count Seg Neutrophils % Lymphocytes % Monocytes % Eosinophils % Basophils % Absolute Neutrophils Absolute Lymphocytes Absolute Monocytes Absolute Eosinophils Absolute Basophils Carbonic Acid 1.06 HCO3/H2CO3 Ratio 25:1 ABG pH 7.51 H ABG pCO2 35.3 ABG pO2 95.6 ABG HCO3 27.5 H ABG O2 Saturation 97.9 ABG Base Excess 4.3 FiO2 25% Sodium 139.6 Potassium 4.0 3.6 Chloride 104 Carbon Dioxide 31 H Anion Gap 5 BUN 13 Creatinine 0.56 Est GFR ( Amer) > 60 Est GFR (Non-Af Amer) > 60 Glucose 121 H Calcium 8.1 L 12/30/17 11:15 WBC 19.1 H RBC 2.84 L Hgb 8.1 L Hct 25.1 L MCV 88 MCH 28.5 MCHC 32.3 RDW 17.8 H Plt Count 317 Seg Neutrophils % Not Reportable Lymphocytes % Not Reportable Monocytes % Not Reportable Eosinophils % Not Reportable Basophils % Not Reportable Absolute Neutrophils Not Reportable Absolute Lymphocytes Not Reportable Absolute Monocytes Not Reportable Absolute Eosinophils Not Reportable Absolute Basophils Not Reportable Carbonic Acid HCO3/H2CO3 Ratio ABG pH ABG pCO2 ABG pO2 ABG HCO3 ABG O2 Saturation ABG Base Excess FiO2 Sodium Potassium Chloride Carbon Dioxide Anion Gap BUN Creatinine Est GFR ( Amer) Est GFR (Non-Af Amer) Glucose Calcium 12/27/17 00:05 Tracheal Aspirate Gram Stain - Final 12/27/17 00:05 Tracheal Aspirate Sputum Culture - Final Streptococcus Pneumoniae Haemophilus Influenzae 12/27/17 12/27/17 12/27/17 00:40 00:40 06:30 Creatine Kinase 36 26 L CK-MB (CK-2) 1.99 Troponin I < 0.012 12/27/17 12/27/17 12/27/17 06:30 12:35 12:35 Creatine Kinase 49 CK-MB (CK-2) 0.81 0.50 Troponin I < 0.012 < 0.012 Impressions: Chest X-Ray 12/30/17 06:00 IMPRESSION: No significant change. KUB X-Ray 12/30/17 08:57 IMPRESSION: Ileus or partial small bowel obstruction. Assessment & Plan - Diagnosis (1) Anemia Qualifiers: Anemia type: iron deficiency Is this a current diagnosis for this admission?: Yes Plan: currently intubated for COPD and respiratory distress blood was noted in mouth question due to minor oral injury, does not appear to be consistent with any GI Bleeding since NGT not draining blood will need EGD at some point nothing urgent for now may be by midweek sometime spoke with Dr Kaba - Time Time Spent: 50 to 70 Minutes
--- NOTE | 2017-12-30 17:59 | PDOC CONSULTATION ---
Consultation Consult Date: 12/30/17 Attending physician:: SILVINA KABA Consult reason:: Ileus History of Present Illness Admission Date/PCP: 12/26/17 21:15 SILVINA KABA MD Patient complains of: Ileus History of Present Illness: BRYON BONILLA is a 57 year old female Patient is an intubated ICU patient secondary to COPD exacerbation with pneumonia hospitalized for several days at [facility]. Tolerating tube feeds for a few days with minimal residuals then had increased residuals and decreased bowel movement in the last 24 hours. Abdominal film obtained showed ileus pattern surgery was consulted. Past Medical History Cardiac Medical History: Reports: Hypertension Denies: Coronary Artery Disease, Myocardial Infarction Pulmonary Medical History: Reports: Asthma, Bronchitis, Chronic Obstructive Pulmonary Disease (COPD), Pneumonia Denies: Tuberculosis Neurological Medical History: Denies: Seizures Endocrine Medical History: Reports: Diabetes Mellitus Type 2 GI Medical History: Reports: Gastroesophageal Reflux Disease, Hiatal Hernia Denies: Hepatitis Musculoskeltal Medical History: Reports: Arthritis Psychiatric Medical History: Reports: Depression, Schizoaffective Disorder Hematology: Denies: Anemia, Sickle Cell Disease Past Surgical History Past Surgical History: Reports: Appendectomy, Section, Cholecystectomy , Hysterectomy, Other - Nate fundoplication, ventral herniorraphy 15 yrs ago Denies: Amputation, Mastectomy, Pacemaker Social History Lives with: Prison Smoking Status: Former Smoker Frequency of Alcohol Use: None Hx Recreational Drug Use: No Drugs: None Hx Prescription Drug Abuse: No - Advance Directive Resuscitation Status: Full Code Family History Family History: CAD, COPD, Hypertension, Malignancy Parental Family History Reviewed: No Children Family History Reviewed: No Sibling(s) Family History Reviewed.: No Medication/Allergy Home Medications: Albuterol Sulfate [Proair HFA Inhalation Aerosol 8.5 gm MDI] 2 puff IN Q6HP PRN 12/26/17 Amlodipine Besylate [Norvasc 2.5 mg Tablet] 2.5 mg PO DAILY 12/26/17 Aspirin [Ecotrin 81 mg EC Tablet] 81 mg PO DAILY 12/26/17 Benzonatate [Tessalon Perle 100 mg Capsule] 100 mg PO TIDP PRN 12/26/17 Dicyclomine HCl [Bentyl 10 mg Capsule] 10 mg PO TID 12/26/17 Ferrous Sulfate 324 mg PO BID 12/26/17 Furosemide [Lasix 20 mg Tablet] 20 mg PO Q3D 12/26/17 Gabapentin [Neurontin 100 mg Capsule] 100 mg PO Q8 12/26/17 Ipratropium/Albuterol Sulfate [Iprat-Albut 0.5-3(2.5) mg/3 ml] 3 ml NEB Q6 12/26 Levothyroxine Sodium [Synthroid 0.025 mg Tablet] 0.025 mg PO Q6AM 12/26/17 Lorazepam [Ativan 1 mg Tablet] 1 mg PO Q6HP PRN 12/26/17 Omeprazole 40 mg PO DAILY 12/26/17 Ondansetron HCl [Zofran 4 mg Tablet] 4 mg PO Q6HP PRN 12/26/17 Quetiapine Fumarate [Seroquel 100 mg Tablet] 150 mg PO BID@0800,1200 12/26/17 Quetiapine Fumarate [Seroquel] 400 mg PO QHS 12/26/17 Roflumilast [Daliresp 500 mcg Tablet] 500 mcg PO DAILY 12/26/17 Rosuvastatin Calcium [Crestor 10 mg Tablet] 10 mg PO DAILY 12/26/17 Sertraline HCl [Zoloft 50 mg Tablet] 50 mg PO QAM 12/26/17 Tamsulosin HCl [Flomax 0.4 mg Cap.sr] 0.4 mg PO DAILY 12/26/17 Umeclidinium [place] [Incruse Ellipta] 1 puff IH DAILY 12/26/17 Zolpidem Tartrate [Ambien 5 mg Tablet] 5 mg PO QHS 12/26/17 Allergies/Adverse Reactions: clarithromycin [From Biaxin] Allergy (Severe, Verified 12/26/17 19:20) TONGUE/THROAT SWELLING furosemide [From Lasix] Allergy (Intermediate, Verified 12/26/17 19:20) UNSURE venlafaxine HCl [From Effexor] Allergy (Intermediate, Verified 12/26/17 19:20) MUSCLE WEAKNESS adhesive tape Allergy (Verified 12/26/17 19:20) RASH divalproex sodium [From Depakote] Allergy (Verified 12/26/17 19:20) UNSURE Review of Systems ROS unobtainable: Due to endotracheal tube Physical Exam Vital Signs: Temp Pulse Resp BP Pulse Ox 100.2 F 81 11 L 129/67 H 94 12/30/17 15:00 12/30/17 12:27 12/30/17 15:00 12/30/17 14:35 12/30/17 15:00 Intake & Output 12/29/17 12/30/17 12/31/17 06:59 06:59 06:59 Intake Total 4400 4167 1541 Output Total 1525 2720 1750 Balance 2875 1447 -209 Weight 71.1 kg 71.9 kg General appearance: PRESENT: other - Intubated on ventilator sedated eyes periodically opening. GI/Abdominal exam: PRESENT: other - Abdomen examined. Midline incision consistent with previous laparotomy; abdomen doughy no peritoneal signs no rigidity; naturally exam due to patient being on ventilator. There appeared to be no peritoneal signs or organomegaly or hernia. Results Laboratory Results: 12/30/17 11:15 12/30/17 04:10 12/29/17 12/30/17 12/30/17 19:30 04:10 04:10 WBC RBC Hgb Hct MCV MCH MCHC RDW Plt Count Seg Neutrophils % Lymphocytes % Monocytes % Eosinophils % Basophils % Absolute Neutrophils Absolute Lymphocytes Absolute Monocytes Absolute Eosinophils Absolute Basophils Carbonic Acid 1.06 HCO3/H2CO3 Ratio 25:1 ABG pH 7.51 H ABG pCO2 35.3 ABG pO2 95.6 ABG HCO3 27.5 H ABG O2 Saturation 97.9 ABG Base Excess 4.3 FiO2 25% Sodium 139.6 Potassium 4.0 3.6 Chloride 104 Carbon Dioxide 31 H Anion Gap 5 BUN 13 Creatinine 0.56 Est GFR ( Amer) > 60 Est GFR (Non-Af Amer) > 60 Glucose 121 H Calcium 8.1 L 12/30/17 11:15 WBC 19.1 H RBC 2.84 L Hgb 8.1 L Hct 25.1 L MCV 88 MCH 28.5 MCHC 32.3 RDW 17.8 H Plt Count 317 Seg Neutrophils % Not Reportable Lymphocytes % Not Reportable Monocytes % Not Reportable Eosinophils % Not Reportable Basophils % Not Reportable Absolute Neutrophils Not Reportable Absolute Lymphocytes Not Reportable Absolute Monocytes Not Reportable Absolute Eosinophils Not Reportable Absolute Basophils Not Reportable Carbonic Acid HCO3/H2CO3 Ratio ABG pH ABG pCO2 ABG pO2 ABG HCO3 ABG O2 Saturation ABG Base Excess FiO2 Sodium Potassium Chloride Carbon Dioxide Anion Gap BUN Creatinine Est GFR ( Amer) Est GFR (Non-Af Amer) Glucose Calcium 12/27/17 00:05 Tracheal Aspirate Gram Stain - Final 12/27/17 00:05 Tracheal Aspirate Sputum Culture - Final Streptococcus Pneumoniae Haemophilus Influenzae 12/27/17 12/27/17 12/27/17 00:40 00:40 06:30 Creatine Kinase 36 26 L CK-MB (CK-2) 1.99 Troponin I < 0.012 12/27/17 12/27/17 12/27/17 06:30 12:35 12:35 Creatine Kinase 49 CK-MB (CK-2) 0.81 0.50 Troponin I < 0.012 < 0.012 Impressions: Chest X-Ray 12/30/17 06:00 IMPRESSION: No significant change. KUB X-Ray 12/30/17 08:57 IMPRESSION: Ileus or partial small bowel obstruction. Assessment & Plan - Diagnosis (1) Ileus Is this a current diagnosis for this admission?: Yes Plan: Impression: No evidence of acute intra-abdominal process on limited clinical exam; most likely ileus due to multiple comorbidities; Electrolytes within normal limits. Recommendations: 1. Patient is actively stooling at time this examination. 2. Seriously doubt need for any further diagnostic or therapeutic interventions 3. We will sign off for now; reconsult surgery if needed (2) Acute respiratory failure Qualifiers: Respiratory failure complication: hypoxia Qualified Code(s): J96.01 - Acute respiratory failure with hypoxia Is this a current diagnosis for this admission?: Yes (3) Altered mental status Qualifiers: Altered mental status type: coma Coma depth: Hossein coma 3-8 Coma timing : at arrival to emergency department Qualified Code(s): R40.2432 - Hossein coma scale score 3-8, at arrival to emergency department (4) COPD exacerbation Is this a current diagnosis for this admission?: Yes (5) COPD (chronic obstructive pulmonary disease) Qualifiers: COPD type: chronic bronchitis Is this a current diagnosis for this admission?: Yes
[2017-12-30] MEDS: METHYLPREDNISOLONE INJ 40 MG/1 ML SDV IV SCH (21:37)
[2017-12-30] MEDS: LEVOFLOXACIN 750 MG/D5W RTU 750 MG/150 ML RTUPB IV SCH (21:38)
[2017-12-31] MEDS: IPRATROPIUM/ALBUTEROL 0.5-2.5 MG/3 ML AMPUL NEB SCH ×6 (00:35→20:58)
[2017-12-31] MEDS: PIPERACILLIN SODIUM/TAZOBACTAM 3.375 GM in NORMAL SALINE 100 ML IV SCH ×4 (02:13→17:46)
[2017-12-31] MEDS: PROPOFOL 1,000 MG/100 ML INFUS..BTL IV PRN ×5 (02:14→21:52)
[2017-12-31] MEDS: NORMAL SALINE 1000 ML 1,000 ML IV PRN (06:07)
[2017-12-31] MEDS: VANCOMYCIN HCL 1,250 MG in DEXTROSE 5%-WATER 250 ML IV SCH ×2 (06:07→18:19)
[2017-12-31] MEDS: METHYLPREDNISOLONE INJ 40 MG/1 ML SDV IV SCH ×3 (06:07→21:52)
[2017-12-31] MEDS: LEVOTHYROXINE SODIUM 0.025 MG TABLET PO SCH (06:09)
[2017-12-31 06:10] LABS: ARTERIAL BLOOD BASE EXCESS 3.2 mmol/L; ARTERIAL BLOOD H2CO3 1.13 mmol/L (1.05-1.35); ARTERIAL BLOOD HCO3 26.9 mmol/L (20-24); ARTERIAL BLOOD O2 SATURATION 95.1 % (94-98); ARTERIAL BLOOD PCO2 37.4 mmHg (35-45); ARTERIAL BLOOD PH 7.48 (7.35-7.45); ARTERIAL BLOOD PO2 69.6 mmHg (80-100); ARTERIAL BLOOD TOTAL CO2 28.1 mmol/L (21-25)
[2017-12-31 06:12] LABS: ARTERIAL BLOOD FIO2 25%
[2017-12-31 06:13] LABS: HEMATOCRIT 23.8 % (36.0-47.0); MEAN CORPUSCULAR HEMOGLOBIN 28.9 pg (27.0-33.4); MEAN CORPUSCULAR HGB CONC 32.7 g/dL (32.0-36.0); MEAN CORPUSCULAR VOLUME 88 fl (80-97); PLATELET COUNT 322 10^3/uL (150-450); RED BLOOD COUNT 2.69 10^6/uL (3.72-5.28); RED CELL DISTRIBUTION WIDTH 18.1 % (11.5-14.0); WHITE BLOOD COUNT 18.3 10^3/uL (4.0-10.5)
[2017-12-31 06:33] LABS: ANION GAP 5 (5-19); BLOOD UREA NITROGEN 11 mg/dL (7-20); CALCIUM 8.3 mg/dL (8.4-10.2); CARBON DIOXIDE 30 mmol/L (22-30); CHLORIDE 107 mmol/L (98-107); GLUCOSE 97 mg/dL (75-110); POTASSIUM 3.1 mmol/L (3.6-5.0); SODIUM 142.4 mmol/L (137-145)
--- NOTE | 2017-12-31 07:42 | RADIOLOGY REPORT (SQ) ---
EXAM DESCRIPTION: X-ray single view chest. CLINICAL HISTORY: 57 years Female, ett/ogt/copd/pna COMPARISON: 12/30/2017 at 12/29/2017. TECHNIQUE: Single portable view of the chest performed on 12/31/2017 at 6:18 AM FINDINGS: The lungs are well-expanded. There is probable scarring or atelectasis in the left lung base. The appearance is similar when compared to the prior studies. There is no evidence of a pneumothorax. The cardiac silhouette is normal in size and configuration. The mediastinal contours are normal. No acute osseous abnormality is identified. No focal soft tissue abnormalities are seen. Lines and tubes: The endotracheal tube, feeding tube and left upper extremity central venous catheter are grossly stable as visualized. IMPRESSION: 1. No definite acute intrathoracic disease. 2. Probable scarring or atelectasis in the left lung base similar when compared to the prior studies. 3. Grossly stable life support lines and tubes.
--- NOTE | 2017-12-31 08:12 | Progress Note ---
Provider Note Provider Note: ID Consult Note Asked to review pt's chart by Pharmacy. Pt not seen or examined. Ms. Garcia is a 57 year old woman with PMH including anxiety and schizoaffective d/o resulting in residence in [facility], GERD, type II DM, HTN, and COPD who was admitted on 12/26/17 with obtundation and respiratory failure. She was afebrile on presentation, had tachycardia, tachypnea, coarse expiratory wheezes diffusely and diminished air movement throughout, requiring intubation and mechanical ventilation. Initial labs were notable for normal WBC count and elevated bicarb of 45 on initial BMP. Blood gas showed hypercarbia and hypoxia. CXR was read as showing minimal left basilar infiltrate/ atelectasis. Empirically Levaquin and vancomycin were started on 12/27. Blood cultures drawn on admission grew GPCs in one blood culture bottle of one set, no growth from the other set. Urinalysis was sent on 12/26 that showed pyuria, and UCx grew E coli >100k cfu (resistant to fluoroquinolones). Pt had a fever O/ N between 12/26 and 12/27, up to 101 on 12/27. Pt was noted to have very thick sputum, and tracheal aspirate was sent for culture on 12/27, which showed growth of Strep pneumoniae and beta-lactamase negative Haemophilus influenzae. Zosyn was added on 12/28. WBC has increased from 7.4 on admission to 19k on 12/30. Pt has been less febrile, although still having some fever Tmax 100.8 on 12/28, 100.6 on 12/30. Impression/Recommendations Acute hypercarbic/hypoxic or type II respiratory failure due to acute exacerbation of severe COPD - Pt has been on Levaquin since 12/27 and Zosyn since 12/28. Suggest discontinuing Levaquin and Zosyn. Rocephin would provide adequate activity against the organisms isolated from the patient's sputum culture. Pt is currently on day 5 of treatment. Continue to complete 7 days. UTI with E coli was also suspected or could not be ruled out with pt obtunded on presentation and unable to provide ROS. It is sensitive to Rocephin and treatment can also be completed with the above. GPCs in blood cultures - Suspect this is likely to be contamination with coagulase negative Staph, but identification is pending. Until GPCs are identified, continuing vancomycin is reasonable. Navin Chew MD [facility] Infectious Diseases pager [phone]
[2017-12-31] MEDS ORDERED: NORMAL SALINE 250 ML IV PRN (08:14)
[2017-12-31 08:25] LABS: ABSOLUTE LYMPHOCYTES# (MANUAL) 1.3 10^3/uL (0.5-4.7); ABSOLUTE MONOCYTES # (MANUAL) 0.5 10^3/uL (0.1-1.4); BAND NEUTROPHILS % (MANUAL) 7 % (3-5); BASOPHILS % (MANUAL) 0 % (0-2); EOSINOPHILS % (MANUAL) 0 % (0-6); LYMPHOCYTES % (MANUAL) 7 % (13-45); MONOCYTES % (MANUAL) 3 % (3-13); SEGMENTED NEUTROPHILS % (MAN) 75 % (42-78); TOTAL CELLS COUNTED 100
[2017-12-31 08:26] LABS: ABSOLUTE NEUTROPHILS# (MANUAL) 16.5 10^3/uL (1.7-8.2); ANISOCYTOSIS 2+; HYPOCHROMASIA 1+; METAMYELOCYTES % (MANUAL) 4 % (0); MYELOCYTES % (MANUAL) 3 % (0); PLATELET COMMENT ADEQUATE; POLYCHROMASIA SLIGHT; ROULEAUX SLIGHT; TOXIC GRANULATION SLIGHT
[2017-12-31 08:27] LABS: PROMYELOCYTES % (MANUAL) 1 % (0)
[2017-12-31] MEDS: POTASSIUM CHLORIDE 20 MEQ/50 ML RTU IV SCH ×2 (09:21→11:51)
[2017-12-31] MEDS: DOCUSATE SODIUM 100 MG CAPSULE PO SCH ×2 (10:16→17:18)
[2017-12-31] MEDS: PANTOPRAZOLE SODIUM 40 MG VIAL IV SCH (11:51)
[2017-12-31] MEDS: ENOXAPARIN SODIUM INJ 40 MG/0.4 ML DISP.SYRIN SUBCUT SCH (11:52)
[2017-12-31] MEDS ORDERED: EPINEPHRINE INJ 1 MG/10 ML DISP.SYRIN ONE (12:22)
--- NOTE | 2017-12-31 12:45 | PROGRESS NOTE E ---
Progress Note NAME: BRYON BONILLA : 1960 AGE: 57Y DATE: 12/31/2017 ROOM: 607 SUBJECTIVE: The patient is a 57-year-old female who came in with respiratory failure requiring invasive mechanical ventilation. There was no vomiting over the last 24 hours. Increased secretion is noted requiring frequent endotracheal tube suctioning. Hemoglobin dropped down to 7.8 this morning. The patient passed watery stool which appeared to be black-green in color, cannot rule out GI bleed. OBJECTIVE: GENERAL: Patient is awake, slight sedation. VITAL SIGNS: Afebrile, not in acute respiratory distress, with a blood pressure of 125/68, temperature 39.8, pulse rate 87, respiratory rate 16, saturation 95% on 35% FiO2. EYES: No jaundice or pallor. EARS, NOSE, AND THROAT: No ear drainage. No nasal discharge. HEAD AND NECK: No scalp tenderness. No neck tenderness. CHEST AND LUNGS: No wheezing, no rhonchi, no crackles. CARDIOVASCULAR: S1, S2 distinct. Regular rate and rhythm. ABDOMEN: Flabby. Positive bowel sounds, soft, nondistended. EXTREMITIES: No joint swelling. LABORATORY DATA: CBC showed white count down to 18.3 from 19.1. Hemoglobin down to 7.8, from 10 on admission. Hematocrit is 32.8. ABG done today showed pH 7.48, pO2 9.6, oxygen saturation 95.1. Chemistry done today showed sodium is 142, potassium is 3.1, chloride is 107, CO2 is 30, BUN is 11, creatinine 0.53, glucose 97, calcium 8.3. IMAGING: Chest x-ray showed endotracheal tube to be in place or keeping the endotracheal tube about 3-4 inches above the regino. No pneumothorax noted. No pleural effusion. No new infiltrate. ASSESSMENT: 1. ACUTE RESPIRATORY FAILURE REQUIRING INVASIVE MECHANICAL VENTILATION, NOT EXTUBATED YET. 2. SEVERE ANEMIA POSSIBLY DUE TO GI BLEED. MAY REQUIRE ENDOSCOPY AND UPPER GI ENDOSCOPY. 3. WATERY STOOL, DIARRHEA, BLACKISH AND GREENISH STOOL, POSSIBLY CELIAC AND MELANOTIC STOOL. PLAN: 1. Transfuse packed RBC 1 unit today. Will check stool for guaic and C. Diff. 2. We will continue IV antibiotics. 3. Called Gi - Dr Quiroga for further evaluation for GI bleeding. DICTATING PHYSICIAN: SHARON SMITH MD,PAOLA,MPH [id number] PHY#: [id number] ID: [id number] JOB#: [id number] ACCT: [id number] cc: > MTDD
--- NOTE | 2017-12-31 12:45 | PROGRESS NOTE E ---
Progress Note NAME: BRYON BONILLA : 1960 AGE: 57Y DATE: 12/30/2017 ROOM: 607 SUBJECTIVE: The patient is a 57-year-old female who came in because of respiratory failure requiring invasive mechanical ventilation, and severe COPD, asthma exacerbation with urosepsis and pneumonia. The patient tolerated OG tube feeding well today at 10 mL/h. No vomiting. No diarrhea. Has distended bowel, probably due to paralytic ileus. The patient's RN stated that the patient still requires suctioning, but endotracheal tube secretions appear to be scantier and are still purulent. No bleeding noted. OBJECTIVE: GENERAL: The patient is sedated, afebrile currently, not in apparent respiratory distress. VITAL SIGNS: The temperature is 97.7, with a T max of 100.6, pulse rate of 87. Blood pressure is 132/70, respiratory rate of 17, saturation 97% on 56% FiO2, SIMV rate of 15, tidal volume of 440 ml, pressure support of 10, PEEP of 5, minute ventilation of 7-8, and the peak airway pressure is 35, end tidal volume is 470 ml. EYES: No jaundice or pallor. EARS, NOSE, AND THROAT: No ear drainage. No nasal discharge. HEAD AND NECK: No scalp tenderness. No neck tenderness. CHEST AND LUNGS: No wheezing. No rhonchi. No crackles. CARDIOVASCULAR: S1, S2 distinct. Normal rate and rhythm. ABDOMEN: Flabby. Positive bowel sounds. Soft, nondistended. EXTREMITIES: No joint swelling or cellulitis. LABORATORY DATA: CBC done today showed a white count of 19.1. Hematocrit is 35.1. Platelet count is 217. BUN is 1%. ABG done today shows a pH of 7.51, pCO2 of 35.3, pO2 is 95.6, FiO2 28%. Chemistry today showed sodium is 139, potassium is 3.6, chloride 104, CO2 is 31, BUN is 13, creatinine is 0.56, and the glucose is 131. Calcium is 8.1. IMAGING STUDIES: Chest x-ray today, December 30, 2017, showed absence of pleural effusion, has mild cardiomegaly, lungs hyperinflated. No pneumothorax noted. No new infiltrates. Endotracheal tube is about 4 mm from the regino. ASSESSMENT: ACUTE RESPIRATORY FAILURE REQUIRING INVASIVE MECHANICAL VENTILATION. PLAN: 1. Continue IV antibiotics, Zosyn IV, Levaquin 750, and vancomycin. 2. Will decrease the Solu-Medrol dose to 20 mg IV q. 8 hours. The patient is currently not in bronchospasm and may be able to tolerate lower dose of Solu-Medrol. 3. Will consider spontaneous breathing trial tomorrow if the patient is doing well overnight. DICTATING PHYSICIAN: SHARON SMITH MD,PAOLA,MPH [id number] PHY#: [id number] ID: [id number] JOB#: [id number] ACCT: [id number] cc: > MTDD
--- NOTE | 2017-12-31 13:18 | Operative Report ---
Operative Report DATE OF SURGERY: 12/31/17 Operative Report: The risks benefits and alternatives of the procedure explained to the patient in detail and informed consent is obtained.A GIF Olympus video scope was inserted into the patient's mouth and hypopharynx ,the esophagus is identified intubated and insufflated, the scope was then advanced through the esophagus stomach and duodenum, retroflexion maneuver is done, the esophagus stomach and first and second portions of the duodenum examined PREOPERATIVE DIAGNOSIS: Possible GI bleeding POSTOPERATIVE DIAGNOSIS: Negative upper endoscopy for upper GI bleeding. No varices. No ulcers. No AVMs. Mild gastritis biopsy obtained OPERATION: EGD with biopsy SURGEON: GABRIEL BARBOUR ANESTHESIA: LMAC TISSUE REMOVED OR ALTERED: As noted above COMPLICATIONS: None. ESTIMATED BLOOD LOSS: None. INTRAOPERATIVE FINDINGS: As noted above. PROCEDURE: Patient tolerated the procedure well. No immediate postprocedure complications are noted. No findings of upper GI bleeding. Continue to monitor
[2017-12-31 16:46] LABS: HEMATOCRIT 28.8 % (36.0-47.0); HEMOGLOBIN 9.6 g/dL (12.0-15.5); MEAN CORPUSCULAR HEMOGLOBIN 28.8 pg (27.0-33.4); MEAN CORPUSCULAR HGB CONC 33.3 g/dL (32.0-36.0); MEAN CORPUSCULAR VOLUME 86 fl (80-97); PLATELET COUNT 316 10^3/uL (150-450); RED BLOOD COUNT 3.34 10^6/uL (3.72-5.28); RED CELL DISTRIBUTION WIDTH 17.3 % (11.5-14.0); WHITE BLOOD COUNT 17.7 10^3/uL (4.0-10.5)
--- NOTE | 2017-12-31 17:03 | PDOC PROGRESS REPORT ---
Subjective Progress Note for:: 12/31/17 Subjective:: Patient is currently doing same Still intubated Patient is alert awake with the tubes There is no any blood in the stools Patient's white count is elevated Reason For Visit: ACUTE RESPIRATORY FAILURE,UTI,SEPSIS Physical Exam Vital Signs: Temp Pulse Resp BP Pulse Ox 100.2 F 72 16 141/72 H 100 12/31/17 16:00 12/31/17 16:27 12/31/17 16:27 12/31/17 16:00 12/31/17 16:27 Intake & Output 12/30/17 12/31/17 01/01/18 06:59 06:59 06:59 Intake Total 4167 3344 218 Output Total 2720 9530 1550 Balance 5854 -240 -2632 Weight 71.9 kg 72.9 kg Physical Exam: intubated and vent General appearance: PRESENT: no acute distress, other Eye exam: PRESENT: PERRLA Mouth exam: PRESENT: neck supple Respiratory exam: PRESENT: clear to auscultation wilfredo Cardiovascular exam: PRESENT: +S1, +S2 GI/Abdominal exam: PRESENT: normal bowel sounds, soft Neurological exam: PRESENT: alert, awake Results Laboratory Results: 12/31/17 16:00 12/31/17 12/31/17 12/31/17 05:00 05:00 05:54 WBC 18.3 H RBC 2.69 L Hgb 7.8 L Hct 23.8 L MCV 88 MCH 28.9 MCHC 32.7 RDW 18.1 H Plt Count 322 Seg Neutrophils % Not Reportable Lymphocytes % Not Reportable Monocytes % Not Reportable Eosinophils % Not Reportable Basophils % Not Reportable Absolute Neutrophils Not Reportable Absolute Lymphocytes Not Reportable Absolute Monocytes Not Reportable Absolute Eosinophils Not Reportable Absolute Basophils Not Reportable Carbonic Acid 1.13 HCO3/H2CO3 Ratio 23:1 ABG pH 7.48 H ABG pCO2 37.4 ABG pO2 69.6 L ABG HCO3 26.9 H ABG O2 Saturation 95.1 ABG Base Excess 3.2 FiO2 25% Sodium 142.4 Potassium 3.1 L Chloride 107 Carbon Dioxide 30 Anion Gap 5 BUN 11 Creatinine 0.53 Est GFR ( Amer) > 60 Est GFR (Non-Af Amer) > 60 Glucose 97 Calcium 8.3 L Stool Occult Blood Blood Type Antibody Screen 12/31/17 12/31/1712/31/18 08:55 09:45 16:00 WBC RBC Hgb Hct MCV MCH MCHC RDW Plt Count Seg Neutrophils % Lymphocytes % Monocytes % Eosinophils % Basophils % Absolute Neutrophils Absolute Lymphocytes Absolute Monocytes Absolute Eosinophils Absolute Basophils Carbonic Acid HCO3/H2CO3 Ratio ABG pH ABG pCO2 ABG pO2 ABG HCO3 ABG O2 Saturation ABG Base Excess FiO2 Sodium Potassium 3.7 Chloride Carbon Dioxide Anion Gap BUN Creatinine Est GFR ( Amer) Est GFR (Non-Af Amer) Glucose Calcium Stool Occult Blood NEGATIVE Blood Type A POSITIVE Antibody Screen NEGATIVE 12/27/17 12/27/17 12/27/17 00:40 00:40 06:30 Creatine Kinase 36 26 L CK-MB (CK-2) 1.99 Troponin I < 0.012 12/27/17 12/27/17 12/27/17 06:30 12:35 12:35 Creatine Kinase 49 CK-MB (CK-2) 0.81 0.50 Troponin I < 0.012 < 0.012 Impressions: KUB X-Ray 12/30/17 08:57 IMPRESSION: Ileus or partial small bowel obstruction. Chest X-Ray 12/31/17 06:00 IMPRESSION: 1. No definite acute intrathoracic disease. 2. Probable scarring or atelectasis in the left lung base similar when compared to the prior studies. 3. Grossly stable life support lines and tubes. Assessment & Plan - Diagnosis (1) Acute respiratory failure Qualifiers: Respiratory failure complication: hypoxia Qualified Code(s): J96.01 - Acute respiratory failure with hypoxia Is this a current diagnosis for this admission?: Yes Plan: Continues to ventilation support follow with the pulmonary (2) Urinary tract infection Qualifiers: Urinary tract infection type: site unspecified Is this a current diagnosis for this admission?: Yes Plan: Continuous IV antibiotic (3) Depression Qualifiers: Depression Type: major depressive disorder Is this a current diagnosis for this admission?: Yes Plan: Patients follow with the psych (4) COPD exacerbation Is this a current diagnosis for this admission?: Yes Plan: Continues to nebulizer treatment and continues to steroid per the pulmonary (5) Diabetes Qualifiers: Diabetes mellitus type: type 2 Is this a current diagnosis for this admission?: Yes Plan: Continues to sliding-scale (6) Generalized anxiety disorder Is this a current diagnosis for this admission?: Yes Plan: Once the patient extubated will restart the patient's psych medications (7) Hypertension Qualifiers: Hypertension type: essential hypertension Is this a current diagnosis for this admission?: Yes Plan: Currently all stable (8) Gastroesophageal reflux disease Qualifiers: Esophagitis presence: without esophagitis Qualified Code(s): K21.9 - Gastro -esophageal reflux disease without esophagitis Is this a current diagnosis for this admission?: Yes Plan: Continues to Protonix (9) Anemia Qualifiers: Anemia type: iron deficiency Is this a current diagnosis for this admission?: Yes Plan: Continues to Protonix will follow with the Dr. Quiroga (10) Ileus Is this a current diagnosis for this admission?: Yes - Time Time Spent with patient: 25-34 minutes Total Critical Time (Minutes): 25 Medications reviewed and adjusted accordingly: Yes Anticipated discharge: Other Within: Other - Inpatient Certification Based on my medical assessment, after consideration of the patient's comorbidities, presenting symptoms, or acuity I expect that the services needed warrant INPATIENT care.: Yes I certify that my determination is in accordance with my understanding of Medicare's requirements for reasonable and necessary INPATIENT services [42 CFR 412.3e].: Yes Medical Necessity: Need For IV Fluids, Need for IV Antibiotics Post Hospital Care: D/C Child Nutrition Assistant Documentation - Plan Summary Plan Summary: stable tranfuse blood cont curr med
[2017-12-31 17:19] LABS: ABSOLUTE LYMPHOCYTES# (MANUAL) 1.4 10^3/uL (0.5-4.7); ABSOLUTE MONOCYTES # (MANUAL) 0.9 10^3/uL (0.1-1.4); ABSOLUTE NEUTROPHILS# (MANUAL) 15.4 10^3/uL (1.7-8.2); BASOPHILS % (MANUAL) 0 % (0-2); EOSINOPHILS % (MANUAL) 0 % (0-6); LYMPHOCYTES % (MANUAL) 8 % (13-45); MONOCYTES % (MANUAL) 5 % (3-13); MYELOCYTES % (MANUAL) 1 % (0); SEGMENTED NEUTROPHILS % (MAN) 82 % (42-78); TOTAL CELLS COUNTED 100
[2017-12-31 17:23] LABS: ANISOCYTOSIS 2+; HYPOCHROMASIA 1+; OVALOCYTES SLIGHT; PLATELET COMMENT ADEQUATE; POIKILOCYTOSIS SLIGHT; POLYCHROMASIA 1+
[2017-12-31 17:24] LABS: METAMYELOCYTES % (MANUAL) 4 % (0)
[2017-12-31 19:07] LABS: PATH REVIEW PATHOLOGIST REVIEWED
[2017-12-31 19:50] LABS: PATH REVIEW PATHOLOGIST REVIEWED
[2017-12-31] MEDS: LEVOFLOXACIN 750 MG/D5W RTU 750 MG/150 ML RTUPB IV SCH (21:51)
[2018-01-01] MEDS: PIPERACILLIN SODIUM/TAZOBACTAM 3.375 GM in NORMAL SALINE 100 ML IV SCH ×5 (00:12→23:33)
[2018-01-01] MEDS: IPRATROPIUM/ALBUTEROL 0.5-2.5 MG/3 ML AMPUL NEB SCH ×6 (00:39→20:17)
[2018-01-01] MEDS: PROPOFOL 1,000 MG/100 ML INFUS..BTL IV PRN ×5 (01:24→21:36)
[2018-01-01] MEDS: NORMAL SALINE 1000 ML 1,000 ML IV PRN ×2 (02:55→16:23)
[2018-01-01] MEDS: MIDAZOLAM HCL 50 MG/100 ML RTUINJ IV PRN ×2 (03:06→21:36)
[2018-01-01 06:10] LABS: ANION GAP 5 (5-19); BLOOD UREA NITROGEN 11 mg/dL (7-20); CALCIUM 8.1 mg/dL (8.4-10.2); CARBON DIOXIDE 29 mmol/L (22-30); CHLORIDE 104 mmol/L (98-107); GLUCOSE 91 mg/dL (75-110); POTASSIUM 3.3 mmol/L (3.6-5.0); SODIUM 137.8 mmol/L (137-145)
--- NOTE | 2018-01-01 06:22 | RADIOLOGY REPORT (SQ) ---
EXAM DESCRIPTION: X-ray single view chest. CLINICAL HISTORY: 57 years Female, ETT COMPARISON: Prior portable chest performed on 12/31/2017 and 12/30/2017. TECHNIQUE: Single portable view of the chest performed on 01/01/2018 at 5:44 AM FINDINGS: The lungs are well expanded and are clear. There is no evidence of a pneumothorax. The cardiac silhouette is normal in size and configuration. The mediastinal contours are normal. No acute osseous abnormality is identified. No focal soft tissue abnormalities are seen. Lines and tubes: The endotracheal tube, feeding tube and left subclavian central venous catheter are grossly stable as visualized. IMPRESSION: 1. No evidence of acute intrathoracic disease. 2. Grossly stable life support lines and tubes.
[2018-01-01] MEDS: METHYLPREDNISOLONE INJ 40 MG/1 ML SDV IV SCH ×4 (06:39→22:00)
[2018-01-01] MEDS: VANCOMYCIN HCL 1,250 MG in DEXTROSE 5%-WATER 250 ML IV SCH ×2 (06:39→18:02)
[2018-01-01] MEDS: LEVOTHYROXINE SODIUM 0.025 MG TABLET PO SCH (06:41)
[2018-01-01 07:05] LABS: VANCOMYCIN,TROUGH 17.8 ug/mL (5.0-20.0)
--- NOTE | 2018-01-01 08:33 | PDOC PROGRESS REPORT ---
Subjective Progress Note for:: 01/01/18 Subjective:: Patient is currently doing fair underwent for the endoscopy no sign of any GI bleed Has received the blood transfusions current hemoglobin is 9.6 Patient still intubated according to the pulmonary plan to extubate today Patient is alert awakPatient's assisted is on the bedSide No other concern Reason For Visit: ACUTE RESPIRATORY FAILURE,UTI,SEPSIS Physical Exam Vital Signs: Temp Pulse Resp BP Pulse Ox 99.1 F 84 16 129/66 H 97 01/01/18 06:23 01/01/18 07:22 01/01/18 06:23 01/01/18 06:23 01/01/18 06:23 Intake & Output 12/31/17 01/01/18 01/02/18 06:59 06:59 06:59 Intake Total 3494 3082 100 Output Total 3700 2665 Balance -206 417 100 Weight 72.9 kg 72.8 kg Physical Exam: Currently intubated General appearance: PRESENT: no acute distress Head exam: PRESENT: normocephalic Eye exam: PRESENT: PERRLA Mouth exam: PRESENT: neck supple Respiratory exam: PRESENT: clear to auscultation wilfredo Cardiovascular exam: PRESENT: +S1, +S2 GI/Abdominal exam: PRESENT: normal bowel sounds, soft Extremities exam: ABSENT: pedal edema Neurological exam: PRESENT: alert, awake Psychiatric exam: PRESENT: anxious Skin exam: PRESENT: dry Results Laboratory Results: 12/31/17 16:00 01/01/18 05:50 12/31/17 12/31/17 12/31/17 08:55 09:45 16:00 WBC 17.7 H RBC 3.34 L Hgb 9.6 L Hct 28.8 L MCV 86 MCH 28.8 MCHC 33.3 RDW 17.3 H Plt Count 316 Seg Neutrophils % Not Reportable Lymphocytes % Not Reportable Monocytes % Not Reportable Eosinophils % Not Reportable Basophils % Not Reportable Absolute Neutrophils Not Reportable Absolute Lymphocytes Not Reportable Absolute Monocytes Not Reportable Absolute Eosinophils Not Reportable Absolute Basophils Not Reportable Sodium Potassium Chloride Carbon Dioxide Anion Gap BUN Creatinine Est GFR ( Amer) Est GFR (Non-Af Amer) Glucose Calcium Stool Occult Blood NEGATIVE Blood Type A POSITIVE Antibody Screen NEGATIVE 12/31/17 01/01/18 16:00 05:50 WBC RBC Hgb Hct MCV MCH MCHC RDW Plt Count Seg Neutrophils % Lymphocytes % Monocytes % Eosinophils % Basophils % Absolute Neutrophils Absolute Lymphocytes Absolute Monocytes Absolute Eosinophils Absolute Basophils Sodium 137.8 Potassium 3.7 3.3 L Chloride 104 Carbon Dioxide 29 Anion Gap 5 BUN 11 Creatinine 0.51 L Est GFR ( Amer) > 60 Est GFR (Non-Af Amer) > 60 Glucose 91 Calcium 8.1 L Stool Occult Blood Blood Type Antibody Screen 12/27/17 12/27/17 12/27/17 00:40 00:40 06:30 Creatine Kinase 36 26 L CK-MB (CK-2) 1.99 Troponin I < 0.012 12/27/17 12/27/17 12/27/17 06:30 12:35 12:35 Creatine Kinase 49 CK-MB (CK-2) 0.81 0.50 Troponin I < 0.012 < 0.012 Impressions: KUB X-Ray 12/30/17 08:57 IMPRESSION: Ileus or partial small bowel obstruction. Chest X-Ray 01/01/18 06:00 IMPRESSION: 1. No evidence of acute intrathoracic disease. 2. Grossly stable life support lines and tubes. Assessment & Plan - Diagnosis (1) Acute respiratory failure Qualifiers: Respiratory failure complication: hypoxia Qualified Code(s): J96.01 - Acute respiratory failure with hypoxia Is this a current diagnosis for this admission?: Yes Plan: Continues to ventilation support follow with the pulmonary (2) Urinary tract infection Qualifiers: Urinary tract infection type: site unspecified Is this a current diagnosis for this admission?: Yes Plan: Continuous IV antibiotic (3) Depression Qualifiers: Depression Type: major depressive disorder Is this a current diagnosis for this admission?: Yes Plan: Patients follow with the psych (4) COPD exacerbation Is this a current diagnosis for this admission?: Yes Plan: Continues to nebulizer treatment and continues to steroid per the pulmonary (5) Diabetes Qualifiers: Diabetes mellitus type: type 2 Is this a current diagnosis for this admission?: Yes Plan: Continues to sliding-scale (6) Generalized anxiety disorder Is this a current diagnosis for this admission?: Yes Plan: Once the patient extubated will restart the patient's psych medications (7) Hypertension Qualifiers: Hypertension type: essential hypertension Is this a current diagnosis for this admission?: Yes Plan: Currently all stable (8) Gastroesophageal reflux disease Qualifiers: Esophagitis presence: without esophagitis Qualified Code(s): K21.9 - Gastro -esophageal reflux disease without esophagitis Is this a current diagnosis for this admission?: Yes Plan: Continues to Protonix (9) Anemia Qualifiers: Anemia type: iron deficiency Is this a current diagnosis for this admission?: Yes Plan: Currently all stable (10) Ileus Is this a current diagnosis for this admission?: Yes Plan: Currently all stable - Time Time Spent with patient: 25-34 minutes Total Critical Time (Minutes): 22 Medications reviewed and adjusted accordingly: Yes Anticipated discharge: SNF - Inpatient Certification Based on my medical assessment, after consideration of the patient's comorbidities, presenting symptoms, or acuity I expect that the services needed warrant INPATIENT care.: Yes I certify that my determination is in accordance with my understanding of Medicare's requirements for reasonable and necessary INPATIENT services [42 CFR 412.3e].: Yes Medical Necessity: Need for IV Antibiotics Post Hospital Care: D/C Lumber Planer Documentation - Plan Summary Plan Summary: Replace the potassium per ICU protocol Continues to IV antibiotic Follow with pulmonary Discussed with the patient's power of corporate event planner regarding the patient's current conditions
[2018-01-01 09:23] LABS: HEMOGLOBIN 7.8 g/dL (12.0-15.5)
[2018-01-01] MEDS: DOCUSATE SODIUM 100 MG CAPSULE PO SCH ×2 (11:00→17:57)
[2018-01-01 11:36] LABS: ARTERIAL BLOOD H2CO3 1.22 mmol/L (1.05-1.35); ARTERIAL BLOOD HCO3 27.3 mmol/L (20-24); ARTERIAL BLOOD O2 SATURATION 94.1 % (94-98); ARTERIAL BLOOD PCO2 40.6 mmHg (35-45); ARTERIAL BLOOD PH 7.45 (7.35-7.45); ARTERIAL BLOOD PO2 67.1 mmHg (80-100); ARTERIAL BLOOD TOTAL CO2 28.5 mmol/L (21-25)
[2018-01-01 11:38] LABS: ARTERIAL BLOOD FIO2 25%
[2018-01-01 11:39] LABS: HEMATOCRIT 31.6 % (36.0-47.0); HEMOGLOBIN 10.3 g/dL (12.0-15.5); MEAN CORPUSCULAR HEMOGLOBIN 28.6 pg (27.0-33.4); MEAN CORPUSCULAR HGB CONC 32.8 g/dL (32.0-36.0); MEAN CORPUSCULAR VOLUME 87 fl (80-97); PLATELET COUNT 352 10^3/uL (150-450); RED BLOOD COUNT 3.62 10^6/uL (3.72-5.28); RED CELL DISTRIBUTION WIDTH 17.7 % (11.5-14.0); WHITE BLOOD COUNT 25.3 10^3/uL (4.0-10.5)
[2018-01-01] MEDS: ENOXAPARIN SODIUM INJ 40 MG/0.4 ML DISP.SYRIN SUBCUT SCH (11:45)
[2018-01-01] MEDS: PANTOPRAZOLE SODIUM 40 MG VIAL IV SCH (11:45)
[2018-01-01] MEDS: POTASSIUM CHLORIDE 20 MEQ/50 ML RTU IV SCH ×2 (11:45→20:03)
[2018-01-01 11:54] LABS: ANION GAP 7 (5-19); BLOOD UREA NITROGEN 10 mg/dL (7-20); CALCIUM 8.7 mg/dL (8.4-10.2); CARBON DIOXIDE 30 mmol/L (22-30); CHLORIDE 106 mmol/L (98-107); GLUCOSE 95 mg/dL (75-110); POTASSIUM 3.5 mmol/L (3.6-5.0); SODIUM 142.9 mmol/L (137-145)
[2018-01-01 11:56] LABS: ABSOLUTE LYMPHOCYTES# (MANUAL) 0.8 10^3/uL (0.5-4.7); ABSOLUTE MONOCYTES # (MANUAL) 1.3 10^3/uL (0.1-1.4); BAND NEUTROPHILS % (MANUAL) 5 % (3-5); BASOPHILS % (MANUAL) 0 % (0-2); EOSINOPHILS % (MANUAL) 1 % (0-6); LYMPHOCYTES % (MANUAL) 3 % (13-45); METAMYELOCYTES % (MANUAL) 2 % (0); MONOCYTES % (MANUAL) 5 % (3-13); SEGMENTED NEUTROPHILS % (MAN) 84 % (42-78); TOTAL CELLS COUNTED 100
[2018-01-01 11:57] LABS: ANISOCYTOSIS 1+; OVALOCYTES SLIGHT; PLATELET COMMENT ADEQUATE; POIKILOCYTOSIS SLIGHT; POLYCHROMASIA 1+
[2018-01-01] MEDS ORDERED: GENTAMICIN SULFATE INJ 80 MG/2 ML VIAL IV SCH (14:00)
[2018-01-01] MEDS: GENTAMICIN SULFATE 120 MG in DEXTROSE 5%-WATER 100 ML IV SCH (14:00)
[2018-01-01 14:29] LABS: PATH REVIEW PATHOLOGIST REVIEWED
[2018-01-01] MEDS: QUETIAPINE FUMARATE 100 MG TABLET NG SCH (15:46)
[2018-01-01 19:09] LABS: HEMATOCRIT 31.7 % (36.0-47.0); HEMOGLOBIN 10.6 g/dL (12.0-15.5); MEAN CORPUSCULAR HEMOGLOBIN 29.3 pg (27.0-33.4); MEAN CORPUSCULAR HGB CONC 33.4 g/dL (32.0-36.0); MEAN CORPUSCULAR VOLUME 88 fl (80-97); PLATELET COUNT 329 10^3/uL (150-450); RED BLOOD COUNT 3.62 10^6/uL (3.72-5.28); RED CELL DISTRIBUTION WIDTH 17.6 % (11.5-14.0); WHITE BLOOD COUNT 23.7 10^3/uL (4.0-10.5)
[2018-01-01 19:30] LABS: ABSOLUTE LYMPHOCYTES# (MANUAL) 0.7 10^3/uL (0.5-4.7); ABSOLUTE MONOCYTES # (MANUAL) 0.2 10^3/uL (0.1-1.4); ABSOLUTE NEUTROPHILS# (MANUAL) 22.8 10^3/uL (1.7-8.2); BAND NEUTROPHILS % (MANUAL) 3 % (3-5); BASOPHILS % (MANUAL) 0 % (0-2); EOSINOPHILS % (MANUAL) 0 % (0-6); LYMPHOCYTES % (MANUAL) 3 % (13-45); METAMYELOCYTES % (MANUAL) 2 % (0); MONOCYTES % (MANUAL) 1 % (3-13); NUCLEATED RED BLOOD CELLS 1 /100 WBC (0); SEGMENTED NEUTROPHILS % (MAN) 91 % (42-78); TOTAL CELLS COUNTED 100
[2018-01-01 19:31] LABS: ANISOCYTOSIS 1+; OVALOCYTES SLIGHT; PLATELET COMMENT ADEQUATE; POIKILOCYTOSIS SLIGHT; POLYCHROMASIA SLIGHT
--- NOTE | 2018-01-01 20:31 | PROGRESS NOTE E ---
Progress Note NAME: BRYON BONILLA : 1960 AGE: 57Y DATE: 01/01/2018 ROOM: 607 SUBJECTIVE: Patient is a 57-year-old female who came in with acute respiratory failure requiring invasive mechanical ventilation due to severe COPD exacerbation, urosepsis and possible community-acquired pneumonia. Patient's blood pressure has been stable over the last 24 hours. Fever has resolved over the last 24 to 48 hours, but white blood cell count went up from 17 yesterday to 25.3 this morning. Has minimal endotracheal tube secretions. Performed a spontaneous breathing trial today after taking off the sedation. Patient became tachypneic in the morning on a ventilator rate of 2 for about 3 hours. Repeated spontaneous breathing trial again this afternoon, holding off propofol and cutting down the ventilator rate to 2. Patient's heart rate remained stable. Blood pressure remained stable. Saturation about 98% on FiO2 of 25%; however, patient's inhaled tidal volume is about 250 to 300. Abdomen appeared to be slightly distended, although the bowel sounds are present. Patient was started on IV gentamicin this morning. Levaquin was discontinued. IV Zosyn and IV vancomycin were continued. We may have to evaluate the abdomen or do a CT scan of the abdomen and pelvis with contrast later tonight if the repeat CBC tonight shows increasing leukocytosis. OBJECTIVE: GENERAL: On physical exam, patient appeared to be awake, slightly sedated, afebrile, not in apparent respiratory distress. VITAL SIGNS: Blood pressure of 136/77, temperature is 99 degrees Fahrenheit with a T-max of 99 degrees. Heart rate is 85. Respiratory rate is 17 and saturation is 97% on 35% FiO2. Tidal volume of 440, pressure support 10, PEEP of 5 and ventilator rate of 16, peak airway pressure of 17 and plateau pressure is 24. EYES: No jaundice or pallor. EARS, NOSE AND THROAT: No ear drainage. No nasal discharge. HEAD AND NECK: No scalp swelling. Neck supple. CHEST AND LUNGS: No wheezing, no rhonchi, no coarse crackles. CARDIOVASCULAR: S1, S2 distant. No murmur, no regurgitation. ABDOMEN: Flabby. Positive bowel sounds. Soft. Abdomen appeared to be slightly distended. Appeared to be nontender. EXTREMITIES: No joint swelling or cellulitis. LABORATORY DATA: CBC done today showed white count of 35.3; went up from 17.7 last night. Hemoglobin is 10.3, hematocrit is 31.6, platelet count is 352,000, bands are 5. Blood gases were done at 11:20 a.m. today, after about 2 hours of spontaneous breathing trial using SIMV rate of 2, showed pH of 7.45, pCO2 of 40, pO2 of 67, bicarb 27.3 and saturation is 94%. Chemistry done today showed sodium is 142.9, potassium is 3.5, chloride 106, CO2 is 30, BUN is 10, creatinine is 0.48, glucose 95. Calcium is 8.7, magnesium is 2.1. Chest x-ray showed no new infiltrate. No pneumothorax. ASSESSMENT: 1. ACUTE RESPIRATORY FAILURE REQUIRING INVASIVE MECHANICAL VENTILATION. Currently not ready to be extubated yet. 2. LEUKOCYTOSIS. Appears to be worsening. Etiology to be determined. Possibly intraabdominal etiology. 3. VERY SEVERE FORM OF COPD. Currently stable and not in acute bronchospasm. 4. SEVERE ANXIETY AND SCHIZOPHRENIA. Resumed patient's Seroquel today. PLAN/RECOMMENDATIONS: 1. Performed spontaneous breathing trial. Patient did not tolerate the spontaneous breathing trial. Low spontaneous tidal volumes. 2. Will continue IV Zosyn and IV vancomycin. Will add gentamicin. Will discontinue the IV Levaquin. Will plan to wean off the IV sedation tomorrow and perform spontaneous breathing trial again. DICTATING PHYSICIAN: SHARON SMITH MD,PAOLA,MPH [id number] PHY#: [id number] ID: [id number] JOB#: [id number] ACCT: [id number] cc: > MTDD
[2018-01-01] MEDS ORDERED: QUETIAPINE FUMARATE 100 MG TABLET NG SCH (22:00)
[2018-01-01 22:17] LABS: ALANINE AMINOTRANSFERASE 59 U/L (9-52); ALBUMIN 2.7 g/dL (3.5-5.0); ALKALINE PHOSPHATASE 49 U/L (38-126); AMYLASE 30 U/L (30-110); ANION GAP 7 (5-19); ASPARTATE AMINO TRANSFERASE 29 U/L (14-36); BILIRUBIN,DIRECT 0.4 mg/dL (0.0-0.4); BILIRUBIN,TOTAL 0.5 mg/dL (0.2-1.3); BLOOD UREA NITROGEN 9 mg/dL (7-20); CALCIUM 8.2 mg/dL (8.4-10.2); CARBON DIOXIDE 28 mmol/L (22-30); CHLORIDE 105 mmol/L (98-107); GLUCOSE 83 mg/dL (75-110); LIPASE 32.6 U/L (23-300); POTASSIUM 3.4 mmol/L (3.6-5.0); SODIUM 140.4 mmol/L (137-145); TOTAL PROTEIN 4.9 g/dL (6.3-8.2)
[2018-01-02] MEDS: POTASSIUM CHLORIDE 20 MEQ/50 ML RTU IV SCH ×2 (00:45→03:04)
[2018-01-02] MEDS: IPRATROPIUM/ALBUTEROL 0.5-2.5 MG/3 ML AMPUL NEB SCH ×8 (00:52→23:59)
[2018-01-02] MEDS: NORMAL SALINE 1000 ML 1,000 ML IV PRN ×2 (02:23→14:55)
[2018-01-02] MEDS: PROPOFOL 1,000 MG/100 ML INFUS..BTL IV PRN ×5 (03:01→20:15)
[2018-01-02] MEDS: GENTAMICIN SULFATE 120 MG in DEXTROSE 5%-WATER 100 ML IV SCH ×2 (03:05→14:48)
[2018-01-02 06:35] LABS: HEMATOCRIT 28.3 % (36.0-47.0); HEMOGLOBIN 9.4 g/dL (12.0-15.5); MEAN CORPUSCULAR HEMOGLOBIN 29.1 pg (27.0-33.4); MEAN CORPUSCULAR HGB CONC 33.2 g/dL (32.0-36.0); MEAN CORPUSCULAR VOLUME 88 fl (80-97); PLATELET COUNT 324 10^3/uL (150-450); RED BLOOD COUNT 3.23 10^6/uL (3.72-5.28); RED CELL DISTRIBUTION WIDTH 17.5 % (11.5-14.0); WHITE BLOOD COUNT 20.6 10^3/uL (4.0-10.5)
[2018-01-02] MEDS: PIPERACILLIN SODIUM/TAZOBACTAM 3.375 GM in NORMAL SALINE 100 ML IV SCH ×3 (06:35→17:33)
[2018-01-02] MEDS: LEVOTHYROXINE SODIUM 0.025 MG TABLET PO SCH (06:35)
[2018-01-02] MEDS: VANCOMYCIN HCL 1,250 MG in DEXTROSE 5%-WATER 250 ML IV SCH (06:35)
[2018-01-02 06:51] LABS: BLOOD UREA NITROGEN 10 mg/dL (7-20); CALCIUM 7.9 mg/dL (8.4-10.2); GLUCOSE 87 mg/dL (75-110); POTASSIUM 3.7 mmol/L (3.6-5.0)
[2018-01-02 06:56] LABS: ANION GAP 5 (5-19); CARBON DIOXIDE 29 mmol/L (22-30); CHLORIDE 105 mmol/L (98-107); SODIUM 139.1 mmol/L (137-145)
[2018-01-02 06:59] LABS: ABSOLUTE LYMPHOCYTES# (MANUAL) 1.4 10^3/uL (0.5-4.7); ABSOLUTE MONOCYTES # (MANUAL) 1.9 10^3/uL (0.1-1.4); ABSOLUTE NEUTROPHILS# (MANUAL) 17.3 10^3/uL (1.7-8.2); BAND NEUTROPHILS % (MANUAL) 1 % (3-5); BASOPHILS % (MANUAL) 0 % (0-2); EOSINOPHILS % (MANUAL) 0 % (0-6); LYMPHOCYTES % (MANUAL) 7 % (13-45); MONOCYTES % (MANUAL) 9 % (3-13); SEGMENTED NEUTROPHILS % (MAN) 83 % (42-78); TOTAL CELLS COUNTED 100; TOXIC GRANULATION 1+
[2018-01-02 07:00] LABS: ANISOCYTOSIS 1+; HYPERSEGMENTED NEUTROPHILS PRESENT; PLATELET CLUMPS PRESENT; PLATELET COMMENT ADEQUATE; SCHISTOCYTES SLIGHT
[2018-01-02] MEDS: QUETIAPINE FUMARATE 100 MG TABLET NG SCH (07:58)
--- NOTE | 2018-01-02 08:18 | RADIOLOGY REPORT (SQ) ---
EXAM DESCRIPTION: CHEST SINGLE VIEW COMPLETED DATE/TIME: 01/02/2018 6:08 am REASON FOR STUDY: Acute respiratory failure COMPARISON: 01/01/2018 EXAM PARAMETERS: NUMBER OF VIEWS: One view. TECHNIQUE: Single frontal radiographic view of the chest acquired. RADIATION DOSE: NA LIMITATIONS: None. FINDINGS: LUNGS AND PLEURA: No opacities, masses or pneumothorax. No pleural effusion. MEDIASTINUM AND HILAR STRUCTURES: No masses. Contour normal. HEART AND VASCULAR STRUCTURES: Heart normal in size. Normal vasculature. BONES: No acute findings. HARDWARE: Left subclavian central venous catheter, endotracheal and nasogastric tubes, stable in pos ition. OTHER: No other significant finding. IMPRESSION: 1. No significant interval changes since the examination performed on 01/01/2018. 2. Support tubes and line are stable. TECHNICAL DOCUMENTATION: JOB ID: [id number] [employer]- All Rights Reserved Reading location - IP/workstation name: [email or web address]
[2018-01-02] MEDS: PANTOPRAZOLE SODIUM 40 MG VIAL IV SCH (09:09)
[2018-01-02] MEDS: DOCUSATE SODIUM 100 MG CAPSULE PO SCH (09:09)
[2018-01-02] MEDS: METHYLPREDNISOLONE INJ 40 MG/1 ML SDV IV SCH ×2 (09:09→21:38)
[2018-01-02] MEDS: ENOXAPARIN SODIUM INJ 40 MG/0.4 ML DISP.SYRIN SUBCUT SCH (09:09)
[2018-01-02] MEDS: METRONIDAZOLE 500 MG/NS RTU 500 MG/100 ML RTUPB IV SCH ×3 (10:19→21:39)
--- NOTE | 2018-01-02 14:37 | PDOC PROGRESS REPORT ---
Subjective Progress Note for:: 01/02/18 Subjective:: Patient is currently still intubated and on vent support Abdomen and distended in order the CT scan of the abdomen and pelvis currently pending She is white count is coming down to 20,000's after change the antibiotic by Dr. Morales Reason For Visit: ACUTE RESPIRATORY FAILURE,UTI,SEPSIS Physical Exam Vital Signs: Temp Pulse Resp BP Pulse Ox 99.0 F 81 16 120/61 96 01/02/18 13:48 01/02/18 11:34 01/02/18 11:34 01/02/18 09:24 01/02/18 11:34 Intake & Output 01/01/18 01/02/18 01/03/18 06:59 06:59 06:59 Intake Total 3082 2828 606 Output Total 2665 3250 450 Balance 417 -422 156 Weight 72.8 kg 72.6 kg Physical Exam: Currently intubated and on vent support under sedations General appearance: PRESENT: no acute distress Eye exam: PRESENT: PERRLA Mouth exam: PRESENT: neck supple Respiratory exam: PRESENT: clear to auscultation wilfredo Cardiovascular exam: PRESENT: +S1, +S2 GI/Abdominal exam: PRESENT: distended, hypoactive bowel sounds Results Laboratory Results: 01/02/18 06:20 01/02/18 06:20 01/01/18 01/01/18 01/01/18 18:53 21:40 21:40 WBC 23.7 H RBC 3.62 L Hgb 10.6 L Hct 31.7 L MCV 88 MCH 29.3 MCHC 33.4 RDW 17.6 H Plt Count 329 Seg Neutrophils % Not Reportable Lymphocytes % Not Reportable Monocytes % Not Reportable Eosinophils % Not Reportable Basophils % Not Reportable Absolute Neutrophils Not Reportable Absolute Lymphocytes Not Reportable Absolute Monocytes Not Reportable Absolute Eosinophils Not Reportable Absolute Basophils Not Reportable Sodium 140.4 Potassium 3.4 L Chloride 105 Carbon Dioxide 28 Anion Gap 7 BUN 9 Creatinine 0.50 L Est GFR ( Amer) > 60 Est GFR (Non-Af Amer) > 60 Glucose 83 Lactic Acid 0.7 Calcium 8.2 L Total Bilirubin 0.5 AST 29 ALT 59 H Alkaline Phosphatase 49 Total Protein 4.9 L Albumin 2.7 L Amylase 30 Lipase 32.6 01/02/18 01/02/18 06:20 06:20 WBC 20.6 H RBC 3.23 L Hgb 9.4 L Hct 28.3 L MCV 88 MCH 29.1 MCHC 33.2 RDW 17.5 H Plt Count 324 Seg Neutrophils % Not Reportable Lymphocytes % Not Reportable Monocytes % Not Reportable Eosinophils % Not Reportable Basophils % Not Reportable Absolute Neutrophils Not Reportable Absolute Lymphocytes Not Reportable Absolute Monocytes Not Reportable Absolute Eosinophils Not Reportable Absolute Basophils Not Reportable Sodium 139.1 Potassium 3.7 Chloride 105 Carbon Dioxide 29 Anion Gap 5 BUN 10 Creatinine 0.53 Est GFR ( Amer) > 60 Est GFR (Non-Af Amer) > 60 Glucose 87 Lactic Acid Calcium 7.9 L Total Bilirubin AST ALT Alkaline Phosphatase Total Protein Albumin Amylase Lipase 12/29/17 04:00 Tracheal Aspirate Gram Stain - Final 12/29/17 04:00 Tracheal Aspirate Sputum Culture - Final Yeast, Not Shobha Albicans Greatly Reduced Normal Geraldine 12/27/17 12/27/17 12/27/17 00:40 00:40 06:30 Creatine Kinase 36 26 L CK-MB (CK-2) 1.99 Troponin I < 0.012 12/27/17 12/27/17 12/27/17 06:30 12:35 12:35 Creatine Kinase 49 CK-MB (CK-2) 0.81 0.50 Troponin I < 0.012 < 0.012 Impressions: KUB X-Ray 12/30/17 08:57 IMPRESSION: Ileus or partial small bowel obstruction. Chest X-Ray 01/02/18 05:00 IMPRESSION: 1. No significant interval changes since the examination performed on 01/01/2018. 2. Support tubes and line are stable. Assessment & Plan - Diagnosis (1) Acute respiratory failure Qualifiers: Respiratory failure complication: hypoxia Qualified Code(s): J96.01 - Acute respiratory failure with hypoxia Is this a current diagnosis for this admission?: Yes Plan: Continues to ventilation support follow with the pulmonary (2) Urinary tract infection Qualifiers: Urinary tract infection type: site unspecified Is this a current diagnosis for this admission?: Yes Plan: Continuous IV antibiotic (3) Depression Qualifiers: Depression Type: major depressive disorder Is this a current diagnosis for this admission?: Yes (4) COPD exacerbation Is this a current diagnosis for this admission?: Yes Plan: Continues to nebulizer treatment and continues to steroid per the pulmonary (5) Diabetes Qualifiers: Diabetes mellitus type: type 2 Is this a current diagnosis for this admission?: Yes Plan: Continues to sliding-scale (6) Generalized anxiety disorder Is this a current diagnosis for this admission?: Yes Plan: Once the patient extubated will restart the patient's psych medications (7) Hypertension Qualifiers: Hypertension type: essential hypertension Is this a current diagnosis for this admission?: Yes Plan: Currently all stable (8) Gastroesophageal reflux disease Qualifiers: Esophagitis presence: without esophagitis Qualified Code(s): K21.9 - Gastro -esophageal reflux disease without esophagitis Is this a current diagnosis for this admission?: Yes Plan: Continues to Protonix (9) Anemia Qualifiers: Anemia type: iron deficiency Is this a current diagnosis for this admission?: Yes Plan: Response blood transfusion (10) Ileus Is this a current diagnosis for this admission?: Yes Plan: Patient abdomen is distended very consult the surgery order the CT scan of the abdomen and pelvis we will waiting for the results - Time Time Spent with patient: 25-34 minutes Total Critical Time (Minutes): 25 Medications reviewed and adjusted accordingly: Yes Anticipated discharge: SNF Within: Other - Inpatient Certification Based on my medical assessment, after consideration of the patient's comorbidities, presenting symptoms, or acuity I expect that the services needed warrant INPATIENT care.: Yes I certify that my determination is in accordance with my understanding of Medicare's requirements for reasonable and necessary INPATIENT services [42 CFR 412.3e].: Yes Medical Necessity: Need For IV Fluids, Need for IV Antibiotics Post Hospital Care: D/C Manager Change Documentation - Plan Summary Plan Summary: Continues to IV antibiotic Continues follow with the surgery Continues follow with the pulmonary Discussed with the patient's sisters who is the power of environmental attorney
--- NOTE | 2018-01-02 14:47 | RADIOLOGY REPORT (SQ) ---
EXAM DESCRIPTION: CT ABD/PELVIS WITH IV ORAL COMPLETED DATE/TIME: 01/02/2018 2:27 pm REASON FOR STUDY: acute abdomen; on ventilator COMPARISON: Abdominal films 12/30/2017, 06/10/2017 CT abdomen pelvis 06/04/2017, 05/23/2017, 02/16/2015, 02/15/2015 TECHNIQUE: CT scan of the abdomen and pelvis performed using helical scanning technique with dynamic intravenous contrast injection. No oral contrast. Images reviewed with lung, soft tissue, and bone windows. Reconstructed coronal and sagittal MPR images reviewed. Delayed images for evaluation of the urinary system also acquired. All images stored on PACS. All CT scanners at this facility use dose modulation, iterative reconstruction, and/or weight based d osing when appropriate to reduce radiation dose to as low as reasonably achievable (ALARA). [facility]: Dose Right [facility]: CareDose [facility]: Dose Right [facility]: Teradose 4D [facility]: Nebo.ru CONTRAST TYPE AND DOSE: contrast/concentration: Isovue 350.00 mg/ml; Total Contrast Delivered: 79.0 ml; Total Saline Delivered: 68.0 ml RENAL FUNCTION: Creatinine 0.53 RADIATION DOSE: CT Rad equipment meets quality standard of care and radiation dose reduction techniq ues were employed. CTDIvol: 16.8 - 20.1 mGy. DLP: 1772 mGy-cm.. LIMITATIONS: None. FINDINGS: LOWER CHEST: Small hiatal hernia. Lung bases are clear LIVER: Normal size. No masses. No dilated ducts. SPLEEN: Normal size. No focal lesions. PANCREAS: No masses. No significant calcifications. No adjacent inflammation or peripancreatic fluid collections. Pancreatic duct not dilated. GALLBLADDER: Surgically absent ADRENAL GLANDS: No significant masses or asymmetry. RIGHT KIDNEY AND URETER: No solid masses. No significant calcifications. No hydronephrosis or hyd roureter. LEFT KIDNEY AND URETER: No solid masses. No significant calcifications. No hydronephrosis or hydr oureter. AORTA AND VESSELS: No aneurysm. No dissection. Renal arteries, SMA, celiac without stenosis. RETROPERITONEUM: No retroperitoneal adenopathy, hemorrhage or masses. BOWEL AND PERITONEAL CAVITY: Oral contrast was push through the patient's nasogastric tube. The stom ach is distended with contrast and air. Nasogastric tube tip and side port in the stomach. There is diffuse distention of duodenum, jejunum, and ileum. Most of the oral contrast is in stomach and duodenum. The colon is decompressed. It is difficult to discern whether there is a distal small bowel obstruct ion, or whether this represents a ileus. Follow-up KUB in the morning recommended to assess for ante grade motion of oral contrast into the colon. No free intraperitoneal air. Trace pelvic cul-de-sac fluid. APPENDIX: Not identified PELVIS: Small amount of cul-de-sac free pelvic fluid. No masses or adenopathy. Tenorio catheter drain s the bladder. ABDOMINAL WALL: No masses. No hernias. BONES: No significant or acute findings. OTHER: No other significant finding. IMPRESSION: Distended stomach, duodenum, jejunum, and ileum. Decompressed colon. This could repres ent a ileus rather than distal small bowel obstruction. KUB tomorrow morning recommended to assess f or antegrade passage of contrast into the colon. Patient's ICU nurse was called at 1430 hours, instructed to return the nasogastric tube to suction. Stomach is distended with air-fluid level on the current CT exam. TECHNICAL DOCUMENTATION: JOB ID: [id number] Quality ID # [id number]: Final reports with documentation of one or more dose reduction techniques (e.g., Au tomated exposure control, adjustment of the mA and/or kV according to patient size, use of iterative reconstruction technique) 2010 [employer]- All Rights Reserved Reading location - IP/workstation name: [email or web address]
[2018-01-02] MEDS: MIDAZOLAM HCL 50 MG/100 ML RTUINJ IV PRN (15:49)
--- NOTE | 2018-01-02 16:49 | PDOC PROGRESS REPORT ---
Subjective Progress Note for:: 01/02/18 Subjective:: abdominal distention Had BM this am prior to CT scan Reason For Visit: ACUTE RESPIRATORY FAILURE,UTI,SEPSIS Physical Exam Vital Signs: Temp Pulse Resp BP Pulse Ox 99.5 F 72 16 145/76 H 97 01/02/18 15:55 01/02/18 16:07 01/02/18 16:07 01/02/18 14:29 01/02/18 16:07 Intake & Output 01/01/18 01/02/18 01/03/18 06:59 06:59 06:59 Intake Total 3082 3828 1846 Output Total 2665 3250 1425 Balance 417 578 421 Weight 72.8 kg 72.6 kg Exam: After CT scan OGT connected to suction and immediately felt more comfortable according to patient's nurse. Abdomen also felt softer. CT scan shows ileus. OK to follow up KUB in am. Abd is soft with mild distention Results Laboratory Results: 01/02/18 06:20 01/02/18 06:20 01/01/18 01/01/18 01/01/18 18:53 21:40 21:40 WBC 23.7 H RBC 3.62 L Hgb 10.6 L Hct 31.7 L MCV 88 MCH 29.3 MCHC 33.4 RDW 17.6 H Plt Count 329 Seg Neutrophils % Not Reportable Lymphocytes % Not Reportable Monocytes % Not Reportable Eosinophils % Not Reportable Basophils % Not Reportable Absolute Neutrophils Not Reportable Absolute Lymphocytes Not Reportable Absolute Monocytes Not Reportable Absolute Eosinophils Not Reportable Absolute Basophils Not Reportable Sodium 140.4 Potassium 3.4 L Chloride 105 Carbon Dioxide 28 Anion Gap 7 BUN 9 Creatinine 0.50 L Est GFR ( Amer) > 60 Est GFR (Non-Af Amer) > 60 Glucose 83 Lactic Acid 0.7 Calcium 8.2 L Total Bilirubin 0.5 AST 29 ALT 59 H Alkaline Phosphatase 49 Total Protein 4.9 L Albumin 2.7 L Amylase 30 Lipase 32.6 01/02/18 01/02/18 06:20 06:20 WBC 20.6 H RBC 3.23 L Hgb 9.4 L Hct 28.3 L MCV 88 MCH 29.1 MCHC 33.2 RDW 17.5 H Plt Count 324 Seg Neutrophils % Not Reportable Lymphocytes % Not Reportable Monocytes % Not Reportable Eosinophils % Not Reportable Basophils % Not Reportable Absolute Neutrophils Not Reportable Absolute Lymphocytes Not Reportable Absolute Monocytes Not Reportable Absolute Eosinophils Not Reportable Absolute Basophils Not Reportable Sodium 139.1 Potassium 3.7 Chloride 105 Carbon Dioxide 29 Anion Gap 5 BUN 10 Creatinine 0.53 Est GFR ( Amer) > 60 Est GFR (Non-Af Amer) > 60 Glucose 87 Lactic Acid Calcium 7.9 L Total Bilirubin AST ALT Alkaline Phosphatase Total Protein Albumin Amylase Lipase 12/29/17 04:00 Tracheal Aspirate Gram Stain - Final 12/29/17 04:00 Tracheal Aspirate Sputum Culture - Final Yeast, Not Shobha Albicans Greatly Reduced Normal Geraldine 12/27/17 12/27/17 12/27/17 00:40 00:40 06:30 Creatine Kinase 36 26 L CK-MB (CK-2) 1.99 Troponin I < 0.012 12/27/17 12/27/17 12/27/17 06:30 12:35 12:35 Creatine Kinase 49 CK-MB (CK-2) 0.81 0.50 Troponin I < 0.012 < 0.012 Impressions: KUB X-Ray 12/30/17 08:57 IMPRESSION: Ileus or partial small bowel obstruction. Chest X-Ray 01/02/18 05:00 IMPRESSION: 1. No significant interval changes since the examination performed on 01/01/2018. 2. Support tubes and line are stable. Abdomen/Pelvis CT 01/02/18 10:30 IMPRESSION: Distended stomach, duodenum, jejunum, and ileum. Decompressed colon. This could represent a ileus rather than distal small bowel obstruction. KUB tomorrow morning recommended to assess for antegrade passage of contrast into the colon. Patient's ICU nurse was called at 1430 hours, instructed to return the nasogastric tube to suction. Stomach is distended with air-fluid level on the current CT exam. Assessment & Plan - Diagnosis (1) Diabetes mellitus type 2 in nonobese Is this a current diagnosis for this admission?: Yes (2) Ileus Is this a current diagnosis for this admission?: Yes (3) Respiratory distress Is this a current diagnosis for this admission?: Yes (4) Urinary tract infection Qualifiers: Urinary tract infection type: site unspecified Is this a current diagnosis for this admission?: Yes - Time Time Spent with patient: 15-24 minutes - Inpatient Certification Medical Necessity: Need For IV Fluids, Need For Continuous Telemetry Monitoring , Need for Neurological Checks, Need for IV Antibiotics - Plan Summary Plan Summary: Continue OG Tube to LIS and make sure lytes are followed No need for sugical intervention at this time Will follow
--- NOTE | 2018-01-02 23:06 | PROGRESS NOTE E ---
Progress Note NAME: BRYON BONILLA : 1960 AGE: 57Y DATE: 01/02/2018 ROOM: 607 SUBJECTIVE: The patient is a 57-year-old female who came in acute respiratory failure requiring invasive mechanical ventilation. This morning the patient's abdomen appeared to be distended and hard and hypoactive bowel sounds. Watery bowel movements this morning. No vomiting. The patient did not tolerated the OG tube feeding overnight at 10 mL per hour with a gastric residual of about 400 mL and OG tube was held for a few hours. Scanty endotracheal tube secretions. There was no fever over the last 24-48 hours. Blood pressure has been stable. The patient was sent for a CT of the abdomen with IV and oral contrast showing bowel obstruction and marked distention of the duodenum, jejunum, and ileum. The patient was placed back on OG tube suction, unable to drain more than 600 mL of brownish-greenish secretions. The patient was started on Flagyl 500 mg IV piggyback every 6 hours this morning. The abdomen this afternoon appeared to be less distended and less soft, but still hypoactive bowel sounds. OBJECTIVE: GENERAL: The patient appears sedated, afebrile, not in apparent respiratory distress. VITAL SIGNS: Temperature 99.5 with a T-max of 99.7, and heart rate is 81, respiratory 16, saturation is 97%. The patient is on 35% FiO2, tidal volume is 440 mL, pressure support 10, PEEP of 5, minute ventilation of 7, peak airway pressure is 22 cmH2O. EYES: No jaundice, no pallor. EARS, NOSE, AND THROAT: No ear drainage. No nasal discharge. CHEST AND LUNGS: No wheezing, no rhonchi, no coarse crackles this afternoon. The patient was noted to be wheezing this morning. CARDIOVASCULAR: S1, S2 distinct. Normal rate and regular rhythm. ABDOMEN: Flabby, however, less distended and less rigid compared to this morning, and hypoactive bowel sounds. EXTREMITIES: No joint swelling, no cellulitis. LABORATORY DATA: CBC done today showed white count of 20.6 and 23.5 last night, hemoglobin is 9.4, hematocrit is 28.3, platelet count is 224, band is 1%. Chemistry done today showed sodium is 139, potassium is 3.7, chloride 105, CO2 is 39, BUN is 10, creatinine 0.53, glucose 87, calcium is 7.9, SGOT is 29, SGPT 59, total bilirubin is 0.5, direct bilirubin is 0.4, total protein is 4.9, and albumin is low at 2.7. Amylase is 2.7. ASSESSMENT: 1. ACUTE RESPIRATORY FAILURE REQUIRING INVASIVE MECHANICAL VENTILATION. The patient is not ready to be extubated yet due to worsening abdominal distention, acute abdomen, and severe leukocytosis suggesting underlying infection. 2. ABDOMINAL DISTENTION, POSSIBLY DUE TO SMALL BOWEL OBSTRUCTION VERSUS PARALYTIC ILEUS. 3. SEVERE TO VERY SEVERE COPD, CURRENTLY NOT IN ACUTE EXACERBATION. 4. UROSEPSIS. 5. ANEMIA. PLAN/RECOMMENDATION: 1. We placed the NG tube to suction. 2. Called surgery service for further evaluation and management. 3. We will continue the same ventilator support. 4. We do sedation vacation every morning and spontaneous breathing trial every morning. 5. We will hold all NG tube feeding and oral medications. 6. We will change the oral Synthroid to IV Synthroid at 135 mcg IV q. daily. 7. Continue the Zosyn and IV gentamicin. 8. Discontinue the vancomycin . 9. We will start the patient on Flagyl 500 mg IV piggyback every 6 hours. 10. We will follow the patient. DICTATING PHYSICIAN: SHARON SMITH MD [facility] [id number] PHY#: [id number] ID: [id number] JOB#: [id number] ACCT: [id number] cc: > MTDD
[2018-01-03] MEDS: PIPERACILLIN SODIUM/TAZOBACTAM 3.375 GM in NORMAL SALINE 100 ML IV SCH ×5 (00:14→23:32)
[2018-01-03] MEDS: NORMAL SALINE 1000 ML 1,000 ML IV PRN ×2 (02:49→14:35)
[2018-01-03] MEDS: PROPOFOL 1,000 MG/100 ML INFUS..BTL IV PRN ×2 (02:49→05:25)
[2018-01-03] MEDS: GENTAMICIN SULFATE 120 MG in DEXTROSE 5%-WATER 100 ML IV SCH ×2 (02:52→14:35)
[2018-01-03] MEDS: METRONIDAZOLE 500 MG/NS RTU 500 MG/100 ML RTUPB IV SCH ×4 (03:58→21:56)
[2018-01-03] MEDS: IPRATROPIUM/ALBUTEROL 0.5-2.5 MG/3 ML AMPUL NEB SCH ×5 (04:25→20:32)
[2018-01-03 05:56] LABS: HEMATOCRIT 27.8 % (36.0-47.0); HEMOGLOBIN 9.4 g/dL (12.0-15.5); MEAN CORPUSCULAR HEMOGLOBIN 29.3 pg (27.0-33.4); MEAN CORPUSCULAR HGB CONC 33.8 g/dL (32.0-36.0); MEAN CORPUSCULAR VOLUME 87 fl (80-97); PLATELET COUNT 306 10^3/uL (150-450); RED CELL DISTRIBUTION WIDTH 17.9 % (11.5-14.0); WHITE BLOOD COUNT 16.8 10^3/uL (4.0-10.5)
[2018-01-03 06:08] LABS: ALANINE AMINOTRANSFERASE 63 U/L (9-52); ALBUMIN 2.6 g/dL (3.5-5.0); ALKALINE PHOSPHATASE 45 U/L (38-126); ANION GAP 8 (5-19); ASPARTATE AMINO TRANSFERASE 25 U/L (14-36); BILIRUBIN,DIRECT 0.4 mg/dL (0.0-0.4); BILIRUBIN,TOTAL 0.5 mg/dL (0.2-1.3); BLOOD UREA NITROGEN 8 mg/dL (7-20); CALCIUM 7.9 mg/dL (8.4-10.2); CARBON DIOXIDE 26 mmol/L (22-30); CHLORIDE 105 mmol/L (98-107); GLUCOSE 85 mg/dL (75-110); POTASSIUM 3.3 mmol/L (3.6-5.0); SODIUM 138.8 mmol/L (137-145); TOTAL PROTEIN 4.6 g/dL (6.3-8.2)
[2018-01-03 06:24] LABS: ABSOLUTE MONOCYTES # (MANUAL) 0.5 10^3/uL (0.1-1.4); ABSOLUTE NEUTROPHILS# (MANUAL) 15.3 10^3/uL (1.7-8.2); BAND NEUTROPHILS % (MANUAL) 2 % (3-5); BASOPHILS % (MANUAL) 0 % (0-2); EOSINOPHILS % (MANUAL) 0 % (0-6); LYMPHOCYTES % (MANUAL) 6 % (13-45); MONOCYTES % (MANUAL) 3 % (3-13); SEGMENTED NEUTROPHILS % (MAN) 89 % (42-78); TOTAL CELLS COUNTED 100
[2018-01-03 06:25] LABS: ANISOCYTOSIS 2+; PLATELET COMMENT ADEQUATE; TOXIC GRANULATION SLIGHT; TOXIC VACUOLATION PRESENT
--- NOTE | 2018-01-03 06:30 | RADIOLOGY REPORT (SQ) ---
EXAM DESCRIPTION: X-ray single view chest. CLINICAL HISTORY: 57 years Female, on ventilator, respiratory failure COMPARISON: 01/02/2018 TECHNIQUE: Single portable view of the chest performed on 01/03/2018 at 6:04 AM FINDINGS: The lungs are well expanded and are clear. There is no evidence of a pneumothorax. The cardiac silhouette is normal in size and configuration. The mediastinal contours are normal. No acute osseous abnormality is identified. No focal soft tissue abnormalities are seen. Lines and tubes: The endotracheal tube, left subclavian central venous catheter and feeding tube are grossly stable as visualized. IMPRESSION: 1. No evidence of acute intrathoracic disease or significant change since the prior study. 2. Grossly stable life support lines and tubes.
[2018-01-03] MEDS ORDERED: MIDAZOLAM HCL 50 MG/100 ML RTUINJ IV PRN (07:43)
[2018-01-03] MEDS ORDERED: DEXTROSE 10%-WATER 1,000 ML IV PRN (07:53)
[2018-01-03] MEDS ORDERED: AMINO ACIDS 5%/D25W 1,000 ML IV PRN (07:53)
[2018-01-03] MEDS ORDERED: INSULIN REG, HUMAN 100 UNIT/ML 3 ML VIAL (PYX) SUBCUT PRN (07:53)
[2018-01-03] MEDS: POTASSIUM CHLORIDE 20 MEQ/50 ML RTU IV SCH ×2 (08:04→09:04)
[2018-01-03 09:46] LABS: ARTERIAL BLOOD FIO2 21%; ARTERIAL BLOOD HCO3 25.8 mmol/L (20-24); ARTERIAL BLOOD O2 SATURATION 92.5 % (94-98); ARTERIAL BLOOD PCO2 36.7 mmHg (35-45); ARTERIAL BLOOD PH 7.46 (7.35-7.45); ARTERIAL BLOOD PO2 60.1 mmHg (80-100); ARTERIAL BLOOD TOTAL CO2 26.9 mmol/L (21-25)
[2018-01-03] MEDS ORDERED: LEVOTHYROXINE SODIUM INJ/PF 0.5 MG SDV IV SCH ×2 (10:00)
[2018-01-03] MEDS: PANTOPRAZOLE SODIUM 40 MG VIAL IV SCH (10:24)
[2018-01-03] MEDS: ENOXAPARIN SODIUM INJ 40 MG/0.4 ML DISP.SYRIN SUBCUT SCH (10:24)
[2018-01-03] MEDS: METHYLPREDNISOLONE INJ 40 MG/1 ML SDV IV SCH ×2 (10:24→21:57)
--- NOTE | 2018-01-03 10:32 | RADIOLOGY REPORT (SQ) ---
EXAM DESCRIPTION: KUB/ABDOMEN (SINGLE VIEW) COMPLETED DATE/TIME: 01/03/2018 10:17 am REASON FOR STUDY: on ventilator; possible bowel obstruction COMPARISON: 12/30/2017. CT 01/02/2018. NUMBER OF VIEWS: One view. TECHNIQUE: Supine radiographic image of the abdomen acquired. LIMITATIONS: None. FINDINGS: Nasogastric tube in the stomach. Persistent dilated loops of small bowel with gas fluid l evels. No oral contrast is visualized. IMPRESSION: No significant change. Oral contrast is not visualized. Consider repeating noncontrast CT to determine if contrast has passed into the colon. Reading location - IP/workstation name: [email or web address]
[2018-01-03] MEDS ORDERED: LEVOTHYROXINE SODIUM INJ/PF 0.1 MG SDV IV SCH (11:00)
[2018-01-03] MEDS: LEVOTHYROXINE SODIUM INJ/PF 0.1 MG SDV IV SCH (11:32)
--- NOTE | 2018-01-03 13:25 | PDOC PROGRESS REPORT ---
Subjective Progress Note for:: 01/03/18 Subjective:: Patient currently seen in ICU currently still underwent patient is alert awakeAnd patient's desire to moderate to bouts in the pulmonary on the bedside but the patient on a trial and hopefully extubated today Patient's seen by general surgery for abdominal distention since currently all stable and abdominal distention is today's is much better Patient's denied any chest pain denied any shortness of the breath She is white count is also improving Reason For Visit: ACUTE RESPIRATORY FAILURE,UTI,SEPSIS Physical Exam Vital Signs: Temp Pulse Resp BP Pulse Ox 99.0 F 86 18 102/51 L 100 01/03/18 13:00 01/03/18 11:28 01/03/18 13:00 01/03/18 12:54 01/03/18 13:00 Intake & Output 01/02/18 01/03/18 01/04/18 06:59 06:59 06:59 Intake Total 3828 3651 150 Output Total 3250 2925 975 Balance 578 726 -825 Weight 72.6 kg 74.9 kg Physical Exam: Currently intubated on vent support but alert awake General appearance: PRESENT: no acute distress, well-developed, well-nourished Head exam: PRESENT: atraumatic, normocephalic Eye exam: PRESENT: conjunctiva pink, EOMI, PERRLA. ABSENT: scleral icterus Ear exam: PRESENT: normal external ear exam Mouth exam: PRESENT: moist, tongue midline Neck exam: PRESENT: full ROM. ABSENT: carotid bruit, JVD, lymphadenopathy, thyromegaly Respiratory exam: PRESENT: clear to auscultation wilfredo Cardiovascular exam: PRESENT: RRR. ABSENT: diastolic murmur, rubs, systolic murmur Pulses: PRESENT: normal dorsalis pedis pul, +2 pedal pulses bilateral Vascular exam: PRESENT: normal capillary refill GI/Abdominal exam: PRESENT: distended, normal bowel sounds, soft. ABSENT: guarding, mass, organolmegaly, rebound, tenderness Rectal exam: PRESENT: deferred Extremities exam: ABSENT: pedal edema Neurological exam: PRESENT: alert, awake, oriented to person, oriented to place , oriented to time, oriented to situation, CN II-XII grossly intact. ABSENT: motor sensory deficit Psychiatric exam: PRESENT: appropriate affect, normal mood. ABSENT: homicidal ideation, suicidal ideation Skin exam: PRESENT: dry, intact, warm. ABSENT: cyanosis, rash Results Laboratory Results: 01/03/18 05:45 01/03/18 05:45 01/03/18 01/03/18 01/03/18 05:45 05:45 05:45 WBC 16.8 H RBC 3.20 L Hgb 9.4 L Hct 27.8 L MCV 87 MCH 29.3 MCHC 33.8 RDW 17.9 H Plt Count 306 Seg Neutrophils % Not Reportable Lymphocytes % Not Reportable Monocytes % Not Reportable Eosinophils % Not Reportable Basophils % Not Reportable Absolute Neutrophils Not Reportable Absolute Lymphocytes Not Reportable Absolute Monocytes Not Reportable Absolute Eosinophils Not Reportable Absolute Basophils Not Reportable Carbonic Acid HCO3/H2CO3 Ratio ABG pH ABG pCO2 ABG pO2 ABG HCO3 ABG O2 Saturation ABG Base Excess FiO2 Sodium 138.8 Potassium 3.3 L Chloride 105 Carbon Dioxide 26 Anion Gap 8 BUN 8 Creatinine 0.54 Est GFR ( Amer) > 60 Est GFR (Non-Af Amer) > 60 Glucose 85 Calcium 7.9 L Magnesium 1.8 Total Bilirubin 0.5 AST 25 ALT 63 H Alkaline Phosphatase 45 Total Protein 4.6 L Albumin 2.6 L 01/03/18 09:10 WBC RBC Hgb Hct MCV MCH MCHC RDW Plt Count Seg Neutrophils % Lymphocytes % Monocytes % Eosinophils % Basophils % Absolute Neutrophils Absolute Lymphocytes Absolute Monocytes Absolute Eosinophils Absolute Basophils Carbonic Acid 1.10 HCO3/H2CO3 Ratio 23:1 ABG pH 7.46 H ABG pCO2 36.7 ABG pO2 60.1 L ABG HCO3 25.8 H ABG O2 Saturation 92.5 L ABG Base Excess 2.0 FiO2 21% Sodium Potassium Chloride Carbon Dioxide Anion Gap BUN Creatinine Est GFR ( Amer) Est GFR (Non-Af Amer) Glucose Calcium Magnesium Total Bilirubin AST ALT Alkaline Phosphatase Total Protein Albumin 12/28/17 19:00 Blood Blood Culture - Final NO GROWTH IN 5 DAYS 12/28/17 19:05 Blood Blood Culture - Final NO GROWTH IN 5 DAYS 12/27/17 12/27/17 12/27/17 00:40 00:40 06:30 Creatine Kinase 36 26 L CK-MB (CK-2) 1.99 Troponin I < 0.012 12/27/17 12/27/17 12/27/17 06:30 12:35 12:35 Creatine Kinase 49 CK-MB (CK-2) 0.81 0.50 Troponin I < 0.012 < 0.012 Impressions: Abdomen/Pelvis CT 01/02/18 10:30 IMPRESSION: Distended stomach, duodenum, jejunum, and ileum. Decompressed colon. This could represent a ileus rather than distal small bowel obstruction. KUB tomorrow morning recommended to assess for antegrade passage of contrast into the colon. Patient's ICU nurse was called at 1430 hours, instructed to return the nasogastric tube to suction. Stomach is distended with air-fluid level on the current CT exam. Chest X-Ray 01/03/18 05:00 IMPRESSION: 1. No evidence of acute intrathoracic disease or significant change since the prior study. 2. Grossly stable life support lines and tubes. KUB X-Ray 01/03/18 10:00 IMPRESSION: No significant change. Oral contrast is not visualized. Consider repeating noncontrast CT to determine if contrast has passed into the colon. Assessment & Plan - Diagnosis (1) Acute respiratory failure Qualifiers: Respiratory failure complication: hypoxia Qualified Code(s): J96.01 - Acute respiratory failure with hypoxia Is this a current diagnosis for this admission?: Yes Plan: Continues to ventilation support follow with the pulmonary (2) Urinary tract infection Qualifiers: Urinary tract infection type: site unspecified Is this a current diagnosis for this admission?: Yes Plan: Continuous IV antibiotic (3) Depression Qualifiers: Depression Type: major depressive disorder Is this a current diagnosis for this admission?: Yes Plan: Patients follow with the psych (4) COPD exacerbation Is this a current diagnosis for this admission?: Yes Plan: Continues to nebulizer treatment and continues to steroid per the pulmonary (5) Diabetes Qualifiers: Diabetes mellitus type: type 2 Is this a current diagnosis for this admission?: Yes Plan: Continues to sliding-scale (6) Generalized anxiety disorder Is this a current diagnosis for this admission?: Yes Plan: Once the patient extubated will restart the patient's psych medications (7) Hypertension Qualifiers: Hypertension type: essential hypertension Is this a current diagnosis for this admission?: Yes Plan: Currently all stable (8) Gastroesophageal reflux disease Qualifiers: Esophagitis presence: without esophagitis Qualified Code(s): K21.9 - Gastro -esophageal reflux disease without esophagitis Is this a current diagnosis for this admission?: Yes Plan: Continues to Protonix (9) Anemia Qualifiers: Anemia type: iron deficiency Is this a current diagnosis for this admission?: Yes Plan: Response blood transfusion (10) Ileus Is this a current diagnosis for this admission?: Yes Plan: Follow with the surgery - Time Time Spent with patient: 15-24 minutes Medications reviewed and adjusted accordingly: Yes Anticipated discharge: SNF Within: Other - Inpatient Certification Medical Necessity: Need Close Monitoring Due to Risk of Patient Decompensation, Need for IV Antibiotics Post Hospital Care: D/C Label Designer Documentation - Plan Summary Plan Summary: Discussed with the pulmonary and the bedside regarding the patient's current condition discussed with the general surgery and discussed with the patient's power of field mechanic/site lead
[2018-01-03 14:30] LABS: GENTAMICIN-TROUGH 1.7 ug/mL (<2.0)
--- NOTE | 2018-01-03 14:57 | PDOC PROGRESS REPORT ---
Subjective Progress Note for:: 01/03/18 Subjective:: extubated. Denies abdominal pains/flatus. Cooperative,hungry. Reason For Visit: ACUTE RESPIRATORY FAILURE,UTI,SEPSIS Physical Exam Vital Signs: Temp Pulse Resp BP Pulse Ox 99.0 F 86 19 102/53 L 94 01/03/18 14:00 01/03/18 11:28 01/03/18 14:00 01/03/18 13:54 01/03/18 14:00 Intake & Output 01/02/18 01/03/18 01/04/18 06:59 06:59 06:59 Intake Total 3828 3843 1217 Output Total 3250 2925 1575 Balance 578 918 -358 Weight 72.6 kg 74.9 kg Exam: NGT drained 300 ccs since this am. Abdomen slightly distended but soft and non tender. KUB shows dilated small bowel Results Laboratory Results: 01/03/18 05:45 01/03/18 13:45 01/03/18 01/03/18 01/03/18 05:45 05:45 05:45 WBC 16.8 H RBC 3.20 L Hgb 9.4 L Hct 27.8 L MCV 87 MCH 29.3 MCHC 33.8 RDW 17.9 H Plt Count 306 Seg Neutrophils % Not Reportable Lymphocytes % Not Reportable Monocytes % Not Reportable Eosinophils % Not Reportable Basophils % Not Reportable Absolute Neutrophils Not Reportable Absolute Lymphocytes Not Reportable Absolute Monocytes Not Reportable Absolute Eosinophils Not Reportable Absolute Basophils Not Reportable Carbonic Acid HCO3/H2CO3 Ratio ABG pH ABG pCO2 ABG pO2 ABG HCO3 ABG O2 Saturation ABG Base Excess FiO2 Sodium 138.8 Potassium 3.3 L Chloride 105 Carbon Dioxide 26 Anion Gap 8 BUN 8 Creatinine 0.54 Est GFR ( Amer) > 60 Est GFR (Non-Af Amer) > 60 Glucose 85 Calcium 7.9 L Magnesium 1.8 Total Bilirubin 0.5 AST 25 ALT 63 H Alkaline Phosphatase 45 Total Protein 4.6 L Albumin 2.6 L 01/03/18 01/03/18 09:10 13:45 WBC RBC Hgb Hct MCV MCH MCHC RDW Plt Count Seg Neutrophils % Lymphocytes % Monocytes % Eosinophils % Basophils % Absolute Neutrophils Absolute Lymphocytes Absolute Monocytes Absolute Eosinophils Absolute Basophils Carbonic Acid 1.10 HCO3/H2CO3 Ratio 23:1 ABG pH 7.46 H ABG pCO2 36.7 ABG pO2 60.1 L ABG HCO3 25.8 H ABG O2 Saturation 92.5 L ABG Base Excess 2.0 FiO2 21% Sodium Potassium 3.7 Chloride Carbon Dioxide Anion Gap BUN Creatinine Est GFR ( Amer) Est GFR (Non-Af Amer) Glucose Calcium Magnesium Total Bilirubin AST ALT Alkaline Phosphatase Total Protein Albumin 12/28/17 19:00 Blood Blood Culture - Final NO GROWTH IN 5 DAYS 12/28/17 19:05 Blood Blood Culture - Final NO GROWTH IN 5 DAYS 12/27/17 12/27/17 12/27/17 00:40 00:40 06:30 Creatine Kinase 36 26 L CK-MB (CK-2) 1.99 Troponin I < 0.012 12/27/17 12/27/17 12/27/17 06:30 12:35 12:35 Creatine Kinase 49 CK-MB (CK-2) 0.81 0.50 Troponin I < 0.012 < 0.012 Impressions: Abdomen/Pelvis CT 01/02/18 10:30 IMPRESSION: Distended stomach, duodenum, jejunum, and ileum. Decompressed colon. This could represent a ileus rather than distal small bowel obstruction. KUB tomorrow morning recommended to assess for antegrade passage of contrast into the colon. Patient's ICU nurse was called at 1430 hours, instructed to return the nasogastric tube to suction. Stomach is distended with air-fluid level on the current CT exam. Chest X-Ray 01/03/18 05:00 IMPRESSION: 1. No evidence of acute intrathoracic disease or significant change since the prior study. 2. Grossly stable life support lines and tubes. KUB X-Ray 01/03/18 10:00 IMPRESSION: No significant change. Oral contrast is not visualized. Consider repeating noncontrast CT to determine if contrast has passed into the colon. Assessment & Plan - Diagnosis (1) Diabetes mellitus type 2 in nonobese Is this a current diagnosis for this admission?: Yes (2) Ileus Is this a current diagnosis for this admission?: Yes (3) Respiratory distress Is this a current diagnosis for this admission?: Yes (4) Urinary tract infection Qualifiers: Urinary tract infection type: site unspecified Is this a current diagnosis for this admission?: Yes - Time Time Spent with patient: 15-24 minutes - Plan Summary Plan Summary: Continue NGT Check SBFT via gastrograffin thru NGT to check for any transition point or open up obstruction.
[2018-01-03] MEDS: LORAZEPAM INJ 2 MG/1 ML VIAL IV PRN ×2 (17:10→23:29)
[2018-01-03] MEDS: DEXTROSE 5%-1/2 NORMAL SALINE 1,000 ML IV PRN (18:45)
[2018-01-03 21:26] LABS: GENTAMICIN-PEAK 8.8 ug/mL (5.0-10.0)
[2018-01-04] MEDS: IPRATROPIUM/ALBUTEROL 0.5-2.5 MG/3 ML AMPUL NEB SCH ×7 (00:52→23:38)
[2018-01-04] MEDS: GENTAMICIN SULFATE 120 MG in DEXTROSE 5%-WATER 100 ML IV SCH ×2 (02:10→15:32)
[2018-01-04] MEDS: METRONIDAZOLE 500 MG/NS RTU 500 MG/100 ML RTUPB IV SCH ×4 (02:56→20:20)
[2018-01-04 04:48] LABS: HEMATOCRIT 28.1 % (36.0-47.0); HEMOGLOBIN 9.3 g/dL (12.0-15.5); MEAN CORPUSCULAR HEMOGLOBIN 29.4 pg (27.0-33.4); MEAN CORPUSCULAR HGB CONC 33.3 g/dL (32.0-36.0); MEAN CORPUSCULAR VOLUME 89 fl (80-97); PLATELET COUNT 294 10^3/uL (150-450); RED BLOOD COUNT 3.17 10^6/uL (3.72-5.28); RED CELL DISTRIBUTION WIDTH 18.2 % (11.5-14.0); WHITE BLOOD COUNT 13.8 10^3/uL (4.0-10.5)
[2018-01-04 05:01] LABS: ALANINE AMINOTRANSFERASE 60 U/L (9-52); ALBUMIN 2.7 g/dL (3.5-5.0); ALKALINE PHOSPHATASE 45 U/L (38-126); ASPARTATE AMINO TRANSFERASE 31 U/L (14-36); BILIRUBIN,DIRECT 0.5 mg/dL (0.0-0.4); BILIRUBIN,TOTAL 0.5 mg/dL (0.2-1.3); BLOOD UREA NITROGEN 5 mg/dL (7-20); GLUCOSE 98 mg/dL (75-110); POTASSIUM 3.1 mmol/L (3.6-5.0); TOTAL PROTEIN 4.8 g/dL (6.3-8.2)
[2018-01-04 05:06] LABS: CARBON DIOXIDE 33 mmol/L (22-30); CHLORIDE 108 mmol/L (98-107); SODIUM 143.6 mmol/L (137-145)
[2018-01-04 05:08] LABS: ANION GAP 3 (5-19)
[2018-01-04 05:19] LABS: ABSOLUTE LYMPHOCYTES# (MANUAL) 0.1 10^3/uL (0.5-4.7); ABSOLUTE MONOCYTES # (MANUAL) 0.4 10^3/uL (0.1-1.4); ABSOLUTE NEUTROPHILS# (MANUAL) 13.2 10^3/uL (1.7-8.2); BASOPHILS % (MANUAL) 0 % (0-2); EOSINOPHILS % (MANUAL) 0 % (0-6); LYMPHOCYTES % (MANUAL) 1 % (13-45); MONOCYTES % (MANUAL) 3 % (3-13); SEGMENTED NEUTROPHILS % (MAN) 96 % (42-78); TOTAL CELLS COUNTED 100
[2018-01-04 05:20] LABS: ANISOCYTOSIS 2+; OVALOCYTES SLIGHT; PLATELET COMMENT ADEQUATE; POIKILOCYTOSIS SLIGHT
[2018-01-04] MEDS: PIPERACILLIN SODIUM/TAZOBACTAM 3.375 GM in NORMAL SALINE 100 ML IV SCH ×3 (06:05→17:24)
--- NOTE | 2018-01-04 07:49 | RADIOLOGY REPORT (SQ) ---
EXAM DESCRIPTION: CT ABD/PELVIS NO ORAL OR IV COMPLETED DATE/TIME: 01/04/2018 4:14 am REASON FOR STUDY: Epigastric pain. COMPARISON: CT abdomen and pelvis with contrast 01/02/2018. TECHNIQUE: CT scan of the abdomen and pelvis performed without intravenous or oral contrast. Images reviewed with lung, soft tissue, and bone windows. Reconstructed coronal and sagittal MPR images revi ewed. All images stored on PACS. All CT scanners at this facility use dose modulation, iterative reconstruction, and/or weight based d osing when appropriate to reduce radiation dose to as low as reasonably achievable (ALARA). [facility]: Dose Right [facility]: CareDose [facility]: Dose Right [facility]: Teradose 4D [facility]: Smart CareParent RADIATION DOSE: CT Rad equipment meets quality standard of care and radiation dose reduction techniq ues were employed. CTDIvol: 11.6 mGy. DLP: 575 mGy-cm.mGy. LIMITATIONS: None. FINDINGS: LOWER CHEST: Chronic bibasilar interstitial changes and pleural thickening. NON-CONTRASTED LIVER, SPLEEN, ADRENALS: Liver: No abnormality. Spleen: No abnormality. Adrenals: No abnormality. PANCREAS: No masses. No peripancreatic inflammatory changes. GALLBLADDER: Status post cholecystectomy. RIGHT KIDNEY AND URETER: Persistent ectasia of the right upper collecting system and right renal pelv is. LEFT KIDNEY AND URETER: Persistent ectasia of the left upper collecting system and left renal pelvis . AORTA AND RETROPERITONEUM: No aneurysm. No retroperitoneal masses or adenopathy. BOWEL AND PERITONEAL CAVITY: NG tube passing into antrum duodenal region. Hiatal hernia. The stoma ch is now decompressed compared to prior study on 01/02/2018. Since the previous study there has been decrease in small bowel distention most prominent distally with contrast noted throughout the colon to the rectum. APPENDIX: Not identified. PELVIS, BLADDER, AND ABDOMINAL WALL:Urinary bladder: Tenorio catheter in bladder base with evidence of air in bladder. OTHER: Soft tissue anasarca. Interval resolution of pelvic ascites noted on to in June 2025. IMPRESSION: 1. Since the prior study on 01/02/2018 ,there has been overall decrease in generalized mall bowel distention particularly distally. There is now contrast throughout the colon to the rectu m. The findings are most consistent with resolving generalized ileus and/or partial obstruction. 2. Mild ectasia of renal upper collecting systems and renal pelvii again noted unchanged. 3. Interva l resolution of pelvic ascites. Persistent soft tissue anasarca. 4. Chronic bibasilar interstitial change and pleural thickening. COMMENT: Quality ID # [id number]: Final reports with documentation of one or more dose reduction techniques (e.g., Automated exposure control, adjustment of the mA and/or kV according to patient size, use of iterative reconstruction technique) TECHNICAL DOCUMENTATION: JOB ID: [id number] [id number] 2010 [employer]- All Rights Reserved Reading location - IP/workstation name: [email or web address]
--- NOTE | 2018-01-04 09:30 | RADIOLOGY REPORT (SQ) ---
EXAM DESCRIPTION: KUB/ABDOMEN (SINGLE VIEW) COMPLETED DATE/TIME: 01/04/2018 7:05 am REASON FOR STUDY: ILEUS COMPARISON: 01/03/2018. NUMBER OF VIEWS: 2 view. TECHNIQUE: Supine radiographic image of the abdomen acquired. LIMITATIONS: None. FINDINGS: BOWEL GAS PATTERN: Since the prior study of 01/03/2018 there has been decrease in generaliz ed small bowel distention and evidence of contrast now throughout the colon. The findings are consis tent with resolving generalized small bowel ileus or partial obstruction NG tube noted in place most likely in duodenum. CALCIFICATIONS: No suspicious calcifications. SOFT TISSUES: No gross mass or suggestion of organomegaly. HARDWARE: Surgical clips from cholecystectomy. . BONES: No acute fracture. No worrisome bone lesions. OTHER: Tenorio catheter noted. Small amount air within the bladder. IMPRESSION: Resolving generalized small bowel ileus. TECHNICAL DOCUMENTATION: JOB ID: [id number] 2010 [employer]- All Rights Reserved Reading location - IP/workstation name: [email or web address]
[2018-01-04] MEDS: METHYLPREDNISOLONE INJ 40 MG/1 ML SDV IV SCH ×2 (09:40→22:12)
[2018-01-04] MEDS: LEVOTHYROXINE SODIUM INJ/PF 0.1 MG SDV IV SCH (09:41)
[2018-01-04] MEDS: PANTOPRAZOLE SODIUM 40 MG VIAL IV SCH (09:41)
[2018-01-04] MEDS: ENOXAPARIN SODIUM INJ 40 MG/0.4 ML DISP.SYRIN SUBCUT SCH (09:44)
[2018-01-04] MEDS: DEXTROSE 5%-1/2 NORMAL SALINE 1,000 ML IV PRN (09:50)
--- NOTE | 2018-01-04 13:31 | RADIOLOGY REPORT (SQ) ---
EXAM DESCRIPTION: SMALL BOWEL SERIES COMPLETED DATE/TIME: 01/03/2018 10:16 pm REASON FOR STUDY: Check for site of obstruction COMPARISON: CT abdomen pelvis 01/02/2018, 01/04/2018 Abdominal films 12/30/2017, 01/03/2018, 01/04/2018 FLUOROSCOPY TIME: No fluoro 10 KUB images saved to PACS. LIMITATIONS: None. PROCEDURE: Initial blood bank business manager image of abdomen acquired, followed by administration of oral contrast. Se rial radiographic images acquired. All images stored on PACS. FINDINGS: Aging Department Supervisor film demonstrates a nasogastric tube in place, with the tip and side port in the sto mach. Stomach decompressed. Moderately distended small bowel loops in the mid abdomen. Decompresse d colon in the left abdomen. Thin barium was instilled through the patient's nasogastric tube. There is prompt gastric emptying i nto normal caliber duodenum. Jejunum and ileum are distended, down to the midline pelvis. Deep in the pelvis there is a transition point between dilated and nondilated distal small bowel. By 7 hours, contrast is identified in nondistended colon. IMPRESSION: Partial small bowel obstruction with transition point in the deep midline pelvis COMMENT: Quality ID [id number]: Final reports for procedures using fluoroscopy that document radiation exp osure indices, or exposure time and number of fluorographic images (if radiation exposure indices are not available) TECHNICAL DOCUMENTATION: JOB ID: [id number] [employer]- All Rights Reserved Reading location - IP/workstation name: [email or web address]
[2018-01-04] MEDS: LORAZEPAM INJ 2 MG/1 ML VIAL IV PRN ×2 (15:32→22:13)
[2018-01-04] MEDS: ACETAMINOPHEN 325 MG TABLET PO PRN (17:24)
[2018-01-04] MEDS: POTASSIUM CHLORIDE 20 MEQ/50 ML RTU IV SCH ×2 (17:26→19:20)
[2018-01-04] MEDS ORDERED: (PENDING PHARMACY ID) (Ondansetron Hcl [Zofran 4 Mg Tablet] 4 MG) PO PRN (18:19)
--- NOTE | 2018-01-04 18:25 | PDOC PROGRESS REPORT ---
Subjective Progress Note for:: 01/04/18 Subjective:: Patient seen by the bedside, she had CT scan of the abdomen and pelvis done, there is resolution of the obstruction of the GI tract Reason For Visit: ACUTE RESPIRATORY FAILURE,UTI,SEPSIS Physical Exam Vital Signs: Temp Pulse Resp BP Pulse Ox 99.3 F 74 21 H 104/56 L 98 01/04/18 18:00 01/04/18 15:52 01/04/18 18:00 01/04/18 17:47 01/04/18 18:00 Intake & Output 01/03/18 01/04/18 01/05/18 06:59 06:59 06:59 Intake Total 3843 3417 400 Output Total 2921 1481 0217 Balance 909 -8597 -4852 Weight 74.9 kg 70.2 kg General appearance: PRESENT: no acute distress Eye exam: PRESENT: PERRLA Respiratory exam: PRESENT: clear to auscultation wilfredo Cardiovascular exam: PRESENT: +S1, +S2 GI/Abdominal exam: PRESENT: soft Neurological exam: PRESENT: alert Results Laboratory Results: 01/04/18 04:24 01/04/18 04:24 01/04/18 01/04/18 01/04/18 04:24 04:24 04:24 WBC 13.8 H RBC 3.17 L Hgb 9.3 L Hct 28.1 L MCV 89 MCH 29.4 MCHC 33.3 RDW 18.2 H Plt Count 294 Seg Neutrophils % Not Reportable Lymphocytes % Not Reportable Monocytes % Not Reportable Eosinophils % Not Reportable Basophils % Not Reportable Absolute Neutrophils Not Reportable Absolute Lymphocytes Not Reportable Absolute Monocytes Not Reportable Absolute Eosinophils Not Reportable Absolute Basophils Not Reportable Sodium 143.6 Potassium 3.1 L Chloride 108 H Carbon Dioxide 33 H Anion Gap 3 L BUN 5 L Creatinine 0.47 L Est GFR ( Amer) > 60 Est GFR (Non-Af Amer) > 60 Glucose 98 Calcium 8.0 L Magnesium 1.8 Total Bilirubin 0.5 AST 31 ALT 60 H Alkaline Phosphatase 45 Total Protein 4.8 L Albumin 2.7 L 12/27/17 12/27/17 12/27/17 00:40 00:40 06:30 Creatine Kinase 36 26 L CK-MB (CK-2) 1.99 Troponin I < 0.012 12/27/17 12/27/17 12/27/17 06:30 12:35 12:35 Creatine Kinase 49 CK-MB (CK-2) 0.81 0.50 Troponin I < 0.012 < 0.012 Impressions: Small Bowel X-Ray 01/03/18 00:00 IMPRESSION: Partial small bowel obstruction with transition point in the deep midline pelvis Chest X-Ray 01/03/18 05:00 IMPRESSION: 1. No evidence of acute intrathoracic disease or significant change since the prior study. 2. Grossly stable life support lines and tubes. KUB X-Ray 01/04/18 00:00 IMPRESSION: Resolving generalized small bowel ileus. Abdomen/Pelvis CT 01/04/18 04:00 IMPRESSION: 1. Since the prior study on 01/02/2018 ,there has been overall decrease in generalized mall bowel distention particularly distally. There is now contrast throughout the colon to the rectum. The findings are most consistent with resolving generalized ileus and/or partial obstruction. 2. Mild ectasia of renal upper collecting systems and renal pelvii again noted unchanged. 3. Interval resolution of pelvic ascites. Persistent soft tissue anasarca. 4. Chronic bibasilar interstitial change and pleural thickening. Assessment & Plan - Diagnosis (1) Acute respiratory failure Qualifiers: Respiratory failure complication: hypoxia Qualified Code(s): J96.01 - Acute respiratory failure with hypoxia Is this a current diagnosis for this admission?: Yes (2) Ileus Is this a current diagnosis for this admission?: Yes (3) COPD exacerbation Is this a current diagnosis for this admission?: Yes (4) Small bowel obstruction Is this a current diagnosis for this admission?: Yes
[2018-01-04] MEDS ORDERED: SERTRALINE HCL 50 MG TABLET PO ONE (18:30)
[2018-01-04] MEDS ORDERED: (PENDING PHARMACY ID) (Umeclidinium Bromide [Incruse Ellipta] 1 PUFF) IH SCH (18:30)
[2018-01-04] MEDS ORDERED: QUETIAPINE FUMARATE 100 MG TABLET PO SCH (22:00)
[2018-01-04] MEDS ORDERED: (PENDING PHARMACY ID) (Quetiapine Fumarate [Seroquel] 400 MG) PO SCH (22:00)
[2018-01-04] MEDS: QUETIAPINE FUMARATE 100 MG TABLET PO SCH (22:12)
[2018-01-04] MEDS ORDERED: FLUTICASONE/SALMETEROL DISKUS 500-50 MCG/DOSE IH SCH (22:20)
[2018-01-05] MEDS: DEXTROSE 5%-1/2 NORMAL SALINE 1,000 ML IV PRN ×3 (00:16→17:16)
[2018-01-05] MEDS: PIPERACILLIN SODIUM/TAZOBACTAM 3.375 GM in NORMAL SALINE 100 ML IV SCH ×5 (00:17→23:54)
[2018-01-05 00:51] LABS: ALANINE AMINOTRANSFERASE 55 U/L (9-52); ALBUMIN 2.3 g/dL (3.5-5.0); ALKALINE PHOSPHATASE 37 U/L (38-126); ASPARTATE AMINO TRANSFERASE 20 U/L (14-36); BILIRUBIN,DIRECT 0.4 mg/dL (0.0-0.4); BILIRUBIN,TOTAL 0.4 mg/dL (0.2-1.3); BLOOD UREA NITROGEN 4 mg/dL (7-20); CALCIUM 7.6 mg/dL (8.4-10.2); CARBON DIOXIDE 35 mmol/L (22-30); CHLORIDE 102 mmol/L (98-107); GLUCOSE 105 mg/dL (75-110); POTASSIUM 3.1 mmol/L (3.6-5.0); SODIUM 138.1 mmol/L (137-145); TOTAL PROTEIN 4.3 g/dL (6.3-8.2)
[2018-01-05 00:59] LABS: ANION GAP 1 (5-19)
[2018-01-05] MEDS: GENTAMICIN SULFATE 120 MG in DEXTROSE 5%-WATER 100 ML IV SCH ×2 (02:58→13:14)
[2018-01-05] MEDS: POTASSIUM CHLORIDE 20 MEQ/50 ML RTU IV SCH ×2 (03:01→10:22)
[2018-01-05] MEDS: METRONIDAZOLE 500 MG/NS RTU 500 MG/100 ML RTUPB IV SCH ×4 (04:08→20:37)
[2018-01-05] MEDS: IPRATROPIUM/ALBUTEROL 0.5-2.5 MG/3 ML AMPUL NEB SCH ×6 (04:10→23:37)
[2018-01-05 05:51] LABS: BLOOD UREA NITROGEN 4 mg/dL (7-20); CALCIUM 7.9 mg/dL (8.4-10.2); GLUCOSE 137 mg/dL (75-110); POTASSIUM 3.7 mmol/L (3.6-5.0)
[2018-01-05 05:57] LABS: CARBON DIOXIDE 35 mmol/L (22-30); CHLORIDE 104 mmol/L (98-107); SODIUM 142.3 mmol/L (137-145)
[2018-01-05 06:03] LABS: ANION GAP 3 (5-19)
[2018-01-05] MEDS ORDERED: QUETIAPINE FUMARATE 100 MG TABLET PO SCH (08:00)
[2018-01-05] MEDS: LEVOTHYROXINE SODIUM INJ/PF 0.1 MG SDV IV SCH (10:13)
[2018-01-05] MEDS: METHYLPREDNISOLONE INJ 40 MG/1 ML SDV IV SCH ×2 (10:14→22:06)
[2018-01-05] MEDS: ENOXAPARIN SODIUM INJ 40 MG/0.4 ML DISP.SYRIN SUBCUT SCH (10:14)
[2018-01-05] MEDS: PANTOPRAZOLE SODIUM 40 MG VIAL IV SCH (10:14)
[2018-01-05] MEDS: QUETIAPINE FUMARATE 100 MG TABLET PO SCH ×3 (10:15→22:06)
[2018-01-05] MEDS ORDERED: POTASSI CL 20 MEQ/50 ML RIDER 20 MEQ/50 ML RTUPB IV ONE (10:17)
[2018-01-05] MEDS: SERTRALINE HCL 50 MG TABLET PO SCH (10:49)
[2018-01-05] MEDS: FLUTICASONE/SALMETEROL DISKUS 500-50 MCG/DOSE IH SCH ×2 (10:52→22:05)
[2018-01-05] MEDS: ROFLUMILAST 500 MCG TABLET PO SCH (10:54)
[2018-01-05] MEDS: LORAZEPAM INJ 2 MG/1 ML VIAL IV PRN ×2 (13:25→19:30)
[2018-01-05] MEDS: ACETAMINOPHEN 325 MG TABLET PO PRN (13:26)
--- NOTE | 2018-01-05 17:02 | PDOC PROGRESS REPORT ---
Subjective Progress Note for:: 01/05/18 Subjective:: There is no new complaints Reason For Visit: ACUTE RESPIRATORY FAILURE,UTI,SEPSIS Physical Exam Vital Signs: Temp Pulse Resp BP Pulse Ox 98.8 F 88 20 110/56 L 98 01/05/18 14:07 01/05/18 16:09 01/05/18 16:09 01/05/18 14:07 01/05/18 16:09 Intake & Output 01/04/18 01/05/18 01/06/18 06:59 06:59 06:59 Intake Total 3417 2098 1345 Output Total 4708 0275 1170 Balance -1283 -2422 175 Weight 70.2 kg 71.4 kg General appearance: PRESENT: no acute distress Eye exam: PRESENT: PERRLA Respiratory exam: PRESENT: clear to auscultation wilfredo Cardiovascular exam: PRESENT: +S1, +S2 GI/Abdominal exam: PRESENT: soft Neurological exam: PRESENT: alert Results Laboratory Results: 01/04/18 04:24 01/05/18 04:58 01/04/18 01/04/18 01/05/18 04:24 23:00 04:58 Sodium 138.1 142.3 Potassium 3.1 L 3.7 Chloride 102 104 Carbon Dioxide 35 H 35 H Anion Gap 1 L 3 L BUN 4 L 4 L Creatinine 0.45 L 0.43 L Est GFR ( Amer) > 60 > 60 Est GFR (Non-Af Amer) > 60 > 60 Glucose 105 137 H Calcium 7.6 L 7.9 L Magnesium 1.8 Total Bilirubin 0.4 AST 20 ALT 55 H Alkaline Phosphatase 37 L Total Protein 4.3 L Albumin 2.3 L 01/02/18 09:34 Tracheal Aspirate Gram Stain - Final 01/02/18 09:34 Tracheal Aspirate Sputum Culture - Final NO GROWTH 3 DAYS 12/27/17 12/27/17 12/27/17 00:40 00:40 06:30 Creatine Kinase 36 26 L CK-MB (CK-2) 1.99 Troponin I < 0.012 12/27/17 12/27/17 12/27/17 06:30 12:35 12:35 Creatine Kinase 49 CK-MB (CK-2) 0.81 0.50 Troponin I < 0.012 < 0.012 Impressions: Small Bowel X-Ray 01/03/18 00:00 IMPRESSION: Partial small bowel obstruction with transition point in the deep midline pelvis Chest X-Ray 01/03/18 05:00 IMPRESSION: 1. No evidence of acute intrathoracic disease or significant change since the prior study. 2. Grossly stable life support lines and tubes. KUB X-Ray 01/04/18 00:00 IMPRESSION: Resolving generalized small bowel ileus. Abdomen/Pelvis CT 01/04/18 04:00 IMPRESSION: 1. Since the prior study on 01/02/2018 ,there has been overall decrease in generalized mall bowel distention particularly distally. There is now contrast throughout the colon to the rectum. The findings are most consistent with resolving generalized ileus and/or partial obstruction. 2. Mild ectasia of renal upper collecting systems and renal pelvii again noted unchanged. 3. Interval resolution of pelvic ascites. Persistent soft tissue anasarca. 4. Chronic bibasilar interstitial change and pleural thickening. Assessment & Plan - Diagnosis (1) Acute respiratory failure Qualifiers: Respiratory failure complication: hypoxia Qualified Code(s): J96.01 - Acute respiratory failure with hypoxia Is this a current diagnosis for this admission?: Yes (2) Ileus Is this a current diagnosis for this admission?: Yes (3) COPD exacerbation Is this a current diagnosis for this admission?: Yes (4) Small bowel obstruction Is this a current diagnosis for this admission?: Yes
[2018-01-05] MEDS: DOCUSATE SODIUM 100 MG CAPSULE PO SCH (17:12)
[2018-01-06] MEDS ORDERED: GENTAMICIN SULFATE INJ 80 MG/2 ML VIAL ONE (03:18)
[2018-01-06] MEDS: METRONIDAZOLE 500 MG/NS RTU 500 MG/100 ML RTUPB IV SCH ×4 (03:42→21:06)
[2018-01-06] MEDS: DEXTROSE 5%-1/2 NORMAL SALINE 1,000 ML IV PRN (04:24)
[2018-01-06] MEDS: GENTAMICIN SULFATE 120 MG in DEXTROSE 5%-WATER 100 ML IV SCH ×3 (04:26→16:41)
[2018-01-06] MEDS: IPRATROPIUM/ALBUTEROL 0.5-2.5 MG/3 ML AMPUL NEB SCH ×5 (04:59→19:48)
[2018-01-06] MEDS: PIPERACILLIN SODIUM/TAZOBACTAM 3.375 GM in NORMAL SALINE 100 ML IV SCH ×3 (06:11→18:09)
[2018-01-06] MEDS: SERTRALINE HCL 50 MG TABLET PO SCH (08:24)
[2018-01-06 08:48] LABS: BLOOD UREA NITROGEN 4 mg/dL (7-20); CALCIUM 7.8 mg/dL (8.4-10.2); GLUCOSE 102 mg/dL (75-110)
[2018-01-06 08:54] LABS: CARBON DIOXIDE 35 mmol/L (22-30); CHLORIDE 102 mmol/L (98-107); SODIUM 138.8 mmol/L (137-145)
[2018-01-06 08:55] LABS: ANION GAP 2 (5-19)
[2018-01-06] MEDS ORDERED: POTASSIUM CHLORIDE 10 MEQ CAPSULE.ER PO ONE ×2 (09:01→09:40)
[2018-01-06] MEDS: QUETIAPINE FUMARATE 100 MG TABLET PO SCH ×4 (09:16→21:07)
--- NOTE | 2018-01-06 09:28 | PDOC PROGRESS REPORT ---
Subjective Progress Note for:: 01/06/18 Subjective:: Patient is feeling much better patient is currently on a clear liquid diets wants to eat more She is denied any chest pain denied any shortness of the breath Patient's denied any abdominal pain no nausea no vomiting No fever no chills Reason For Visit: ACUTE RESPIRATORY FAILURE,UTI,SEPSIS Physical Exam Vital Signs: Temp Pulse Resp BP Pulse Ox 98.5 F 81 16 111/58 L 98 01/06/18 08:00 01/06/18 08:00 01/06/18 08:00 01/06/18 08:00 01/06/18 08:00 Intake & Output 01/05/18 01/06/18 01/07/18 06:59 06:59 06:59 Intake Total 2098 3750 Output Total 3715 1170 Balance -1617 2580 Weight 71.4 kg 74 kg General appearance: PRESENT: no acute distress, well-developed, well-nourished Head exam: PRESENT: atraumatic, normocephalic Eye exam: PRESENT: conjunctiva pink, EOMI, PERRLA. ABSENT: scleral icterus Ear exam: PRESENT: normal external ear exam Mouth exam: PRESENT: moist, tongue midline Neck exam: PRESENT: full ROM. ABSENT: carotid bruit, JVD, lymphadenopathy, thyromegaly Respiratory exam: PRESENT: clear to auscultation wilfredo Cardiovascular exam: PRESENT: RRR. ABSENT: diastolic murmur, rubs, systolic murmur Pulses: PRESENT: normal dorsalis pedis pul, +2 pedal pulses bilateral Vascular exam: PRESENT: normal capillary refill GI/Abdominal exam: PRESENT: normal bowel sounds, soft. ABSENT: distended, guarding, mass, organolmegaly, rebound, tenderness Rectal exam: PRESENT: deferred Extremities exam: ABSENT: pedal edema Neurological exam: PRESENT: alert, awake, oriented to person, oriented to place , oriented to time, oriented to situation, CN II-XII grossly intact. ABSENT: motor sensory deficit Psychiatric exam: PRESENT: appropriate affect, normal mood. ABSENT: homicidal ideation, suicidal ideation Skin exam: PRESENT: dry, intact, warm. ABSENT: cyanosis, rash Results Laboratory Results: 01/04/18 04:24 01/06/18 07:55 01/06/18 07:55 Sodium 138.8 Potassium 3.0 L* Chloride 102 Carbon Dioxide 35 H Anion Gap 2 L BUN 4 L Creatinine 0.40 L Est GFR ( Amer) > 60 Est GFR (Non-Af Amer) > 60 Glucose 102 Calcium 7.8 L 01/02/18 09:34 Tracheal Aspirate Gram Stain - Final 01/02/18 09:34 Tracheal Aspirate Sputum Culture - Final NO GROWTH 3 DAYS 12/27/17 12/27/17 12/27/17 00:40 00:40 06:30 Creatine Kinase 36 26 L CK-MB (CK-2) 1.99 Troponin I < 0.012 12/27/17 12/27/17 12/27/17 06:30 12:35 12:35 Creatine Kinase 49 CK-MB (CK-2) 0.81 0.50 Troponin I < 0.012 < 0.012 Impressions: Small Bowel X-Ray 01/03/18 00:00 IMPRESSION: Partial small bowel obstruction with transition point in the deep midline pelvis Chest X-Ray 01/03/18 05:00 IMPRESSION: 1. No evidence of acute intrathoracic disease or significant change since the prior study. 2. Grossly stable life support lines and tubes. KUB X-Ray 01/04/18 00:00 IMPRESSION: Resolving generalized small bowel ileus. Abdomen/Pelvis CT 01/04/18 04:00 IMPRESSION: 1. Since the prior study on 01/02/2018 ,there has been overall decrease in generalized mall bowel distention particularly distally. There is now contrast throughout the colon to the rectum. The findings are most consistent with resolving generalized ileus and/or partial obstruction. 2. Mild ectasia of renal upper collecting systems and renal pelvii again noted unchanged. 3. Interval resolution of pelvic ascites. Persistent soft tissue anasarca. 4. Chronic bibasilar interstitial change and pleural thickening. Assessment & Plan - Diagnosis (1) Acute respiratory failure Qualifiers: Respiratory failure complication: hypoxia Qualified Code(s): J96.01 - Acute respiratory failure with hypoxia Is this a current diagnosis for this admission?: Yes Plan: Currently extubated and doing well (2) Urinary tract infection Qualifiers: Urinary tract infection type: site unspecified Is this a current diagnosis for this admission?: Yes Plan: Continuous IV antibiotic (3) Depression Qualifiers: Depression Type: major depressive disorder Is this a current diagnosis for this admission?: Yes Plan: Patients follow with the psych (4) COPD exacerbation Is this a current diagnosis for this admission?: Yes Plan: Currently all getting better (5) Diabetes Qualifiers: Diabetes mellitus type: type 2 Is this a current diagnosis for this admission?: Yes Plan: Continues to sliding-scale (6) Generalized anxiety disorder Is this a current diagnosis for this admission?: Yes Plan: Once the patient extubated will restart the patient's psych medications (7) Hypertension Qualifiers: Hypertension type: essential hypertension Is this a current diagnosis for this admission?: Yes Plan: Currently all stable (8) Gastroesophageal reflux disease Qualifiers: Esophagitis presence: without esophagitis Qualified Code(s): K21.9 - Gastro -esophageal reflux disease without esophagitis Is this a current diagnosis for this admission?: Yes Plan: Continues to Protonix (9) Anemia Qualifiers: Anemia type: iron deficiency Is this a current diagnosis for this admission?: Yes Plan: Response blood transfusion (10) Ileus Is this a current diagnosis for this admission?: Yes Plan: Currently all improving - Time Time Spent with patient: 15-24 minutes Medications reviewed and adjusted accordingly: Yes Anticipated discharge: Home - Inpatient Certification Medical Necessity: Need Close Monitoring Due to Risk of Patient Decompensation, Need for IV Antibiotics Post Hospital Care: D/C [employer] Documentation - Plan Summary Plan Summary: We advance the diet
[2018-01-06] MEDS: PANTOPRAZOLE SODIUM 40 MG VIAL IV SCH (09:51)
[2018-01-06] MEDS: METHYLPREDNISOLONE INJ 40 MG/1 ML SDV IV SCH (09:51)
[2018-01-06] MEDS: DOCUSATE SODIUM 100 MG CAPSULE PO SCH ×2 (09:52→17:31)
[2018-01-06] MEDS: LEVOTHYROXINE SODIUM INJ/PF 0.1 MG SDV IV SCH ×2 (09:52→10:04)
[2018-01-06] MEDS: ROFLUMILAST 500 MCG TABLET PO SCH (09:53)
[2018-01-06] MEDS: ENOXAPARIN SODIUM INJ 40 MG/0.4 ML DISP.SYRIN SUBCUT SCH (09:53)
[2018-01-06] MEDS: FLUTICASONE/SALMETEROL DISKUS 500-50 MCG/DOSE IH SCH ×2 (09:55→21:06)
[2018-01-06] MEDS: ONDANSETRON 4 MG TAB.RAPDIS PO PRN (13:57)
--- NOTE | 2018-01-06 15:47 | PROGRESS NOTE E ---
Progress Note NAME: BRYON BONILLA : 1960 AGE: 57Y DATE: 01/04/2018 ROOM: 534 SUBJECTIVE: The patient is a 57-year-old female who came in with acute respiratory failure requiring endotracheal intubation and invasive mechanical intubation and had severe COPD exacerbation, and the patient had very severe COPD. There was no fever for the last 24 to 48 hours. There was no vomiting noted. Abdomen was distended yesterday markedly and hard. Endotracheal tube was inserted and the abdomen was suctioned. The patient was started on IV Flagyl and IV gentamicin, and continued on IV Zosyn. IV Levaquin and IV vancomycin were discontinued. Sputum culture did not show any pseudomonas or MRSA. The patient had Escherichia coli urinary tract infection. The patient had a CT scan of the abdomen and pelvis the day before yesterday showing marked stomach and small-bowel distention, with no contrast passed through to the distal colon. Repeat KUB done in the afternoon yesterday showed no apparent signs of contrast passing through the distal bowel. The patient had bowel movements 3-4 times tonight. No vomiting noted. Abdomen was still markedly distended. The patient passed the spontaneous breathing trial this morning, had scant endotracheal tube secretions. ABG during and after 1 hour of spontaneous breathing trial using SIV of 2 was acceptable, and the patient was extubated yesterday morning around 10:00. The patient was re-evaluated at 12:00 pm and at 4:00 pm and the patient appeared to be breathing comfortably. The patient did not require re-intubation. Oral medications still held because of the bowel distention. White blood cell count went down to 20.62 from 30,000 on 01/02 to 15,000. OBJECTIVE: GENERAL: The patient was examined at 4:00 p.m. on 01/03/2018, and showed the patient appeared well, not in apparent respiratory distress. CHEST AND LUNGS: Normal. No crackles. No wheezing. No rhonchi. CARDIOVASCULAR: S1 . No abnormality of rhythm. ABDOMEN: Hypoactive. Markedly distended, but appeared to be slightly tender on the hypogastric area. EXTREMITIES: No joint swelling or cellulitis. LABORATORY: On laboratory done 01/03/2018 showed a white count of 16,000. Hemoglobin is 9.4, hematocrit is 27.8, platelet count is 306. ABGs on 01/03/2018 at 9:10 a.m. while the patient was still endotracheally intubated and after passing the spontaneous breathing trial: The pH was 7.46, pO2 of 60, O2 saturation is 92.5%. Chemistry done 01/03/2018 at 5:45 a.m. showed sodium of 138, potassium is 3.3, Chloride is 105, CO2 is 26, BUN is 8, creatinine is 0.54. Glucose is 85 and calcium is 7.9, and magnesium is 1.8. SGOT is 25. SGPT is 63, alkaline phosphatase 45, total protein is 4.6, albumin is 2.6. ASSESSMENT: 1. ACUTE RESPIRATORY FAILURE REQUIRING INVASIVE MECHANICAL VENTILATION. Currently improved, and she was cleared yesterday at around 9:00 a.m. 2. BOWEL DISTENTION, POSSIBLE MECHANICAL BOWEL OBSTRUCTION. Currently on IV Flagyl, IV gentamicin, and IV Zosyn. 3. SEVERE LEUKOCYTOSIS, appears to be improving and down to 16,000. 4. SEVERE TO VERY SEVERE/END-STAGE COPD, currently stable and not in acute bronchospasm. PLAN/RECOMMENDATIONS: 1. Recommend CT scan of the abdomen and pelvis without IV or oral contrast. 2. Continue IV antibiotics. 3. Continue oG tube suction. May consider to keep in if unable to feed patient enterally. 4. Surgery service followup and GI followup. 5. Will sign off and if you have any questions, please feel free to call me. DICTATING PHYSICIAN: SHARON SMITH MD,APOLA,MPH [id number] PHY#: [id number] ID: [id number] JOB#: [id number] ACCT: [id number] cc: > MTDD
[2018-01-06 17:49] LABS: GENTAMICIN-TROUGH 1.2 ug/mL (<2.0)
[2018-01-06] MEDS: LORAZEPAM INJ 2 MG/1 ML VIAL IV PRN (17:58)
[2018-01-06] MEDS: LEVOTHYROXINE SODIUM 0.025 MG TABLET PO SCH (18:23)
[2018-01-06] MEDS: LANSOPRAZOLE 30 MG TAB.RAP.DR PO SCH (18:29)
[2018-01-06 19:17] LABS: GENTAMICIN-PEAK 7.5 ug/mL (5.0-10.0)
[2018-01-07] MEDS: IPRATROPIUM/ALBUTEROL 0.5-2.5 MG/3 ML AMPUL NEB SCH ×7 (00:09→23:55)
[2018-01-07] MEDS: PIPERACILLIN SODIUM/TAZOBACTAM 3.375 GM in NORMAL SALINE 100 ML IV SCH ×4 (00:15→21:47)
[2018-01-07] MEDS: METRONIDAZOLE 500 MG/NS RTU 500 MG/100 ML RTUPB IV SCH ×4 (02:55→21:47)
[2018-01-07] MEDS: GENTAMICIN SULFATE 120 MG in DEXTROSE 5%-WATER 100 ML IV SCH (04:46)
[2018-01-07] MEDS ORDERED: GENTAMICIN SULFATE INJ 80 MG/2 ML VIAL ONE (05:24)
[2018-01-07 06:23] LABS: BLOOD UREA NITROGEN 4 mg/dL (7-20); CALCIUM 8.1 mg/dL (8.4-10.2); CHLORIDE 100 mmol/L (98-107); GLUCOSE 97 mg/dL (75-110); SODIUM 139.4 mmol/L (137-145)
[2018-01-07 06:34] LABS: ANION GAP -1 (5-19)
[2018-01-07 06:36] LABS: CARBON DIOXIDE 40 mmol/L (22-30); POTASSIUM 2.8 mmol/L (3.6-5.0)
[2018-01-07] MEDS ORDERED: POTASSIUM CHLORIDE 10 MEQ CAPSULE.ER PO ONE ×2 (06:40→09:00)
[2018-01-07] MEDS: LANSOPRAZOLE 30 MG TAB.RAP.DR PO SCH ×2 (06:50→16:25)
[2018-01-07] MEDS: LEVOTHYROXINE SODIUM 0.025 MG TABLET PO SCH (06:53)
[2018-01-07] MEDS: LORAZEPAM INJ 2 MG/1 ML VIAL IV PRN (08:15)
[2018-01-07] MEDS: SERTRALINE HCL 50 MG TABLET PO SCH (08:19)
[2018-01-07 08:20] LABS: ABSOLUTE EOSINOPHILS # (AUTO) 0.1 10^3/uL (0.0-0.6); ABSOLUTE LYMPHOCYTES (AUTO) 1.2 10^3/uL (0.5-4.7); ABSOLUTE NEUT (AUTO) 5.9 10^3/uL (1.7-8.2); BASOPHILS % (AUTO) 0.5 % (0-2); EOSINOPHILS % (AUTO) 0.9 % (0-6); HEMOGLOBIN 8.1 g/dL (12.0-15.5); LYMPHOCYTES % (AUTO) 14.9 % (13-45); MEAN CORPUSCULAR HEMOGLOBIN 28.8 pg (27.0-33.4); MEAN CORPUSCULAR HGB CONC 32.5 g/dL (32.0-36.0); MEAN CORPUSCULAR VOLUME 89 fl (80-97); RED BLOOD COUNT 2.83 10^6/uL (3.72-5.28); RED CELL DISTRIBUTION WIDTH 18.3 % (11.5-14.0); SEGMENTED NEUTROPHILS % (AUTO) 71.7 % (42-78); TOTAL CELLS COUNTED % (AUTO) 100 %; WHITE BLOOD COUNT 8.2 10^3/uL (4.0-10.5)
[2018-01-07] MEDS: QUETIAPINE FUMARATE 100 MG TABLET PO SCH ×3 (08:20→21:48)
[2018-01-07 08:25] LABS: PLATELET COUNT 252 10^3/uL (150-450)
[2018-01-07] MEDS: DOCUSATE SODIUM 100 MG CAPSULE PO SCH ×2 (09:59→17:17)
[2018-01-07] MEDS: ENOXAPARIN SODIUM INJ 40 MG/0.4 ML DISP.SYRIN SUBCUT SCH (09:59)
[2018-01-07] MEDS: ROFLUMILAST 500 MCG TABLET PO SCH (09:59)
[2018-01-07] MEDS: PANTOPRAZOLE SODIUM 40 MG VIAL IV SCH (09:59)
[2018-01-07] MEDS: FLUTICASONE/SALMETEROL DISKUS 500-50 MCG/DOSE IH SCH ×2 (10:00→21:48)
[2018-01-07] MEDS: METHYLPREDNISOLONE INJ 40 MG/1 ML SDV IV SCH (10:01)
[2018-01-07] MEDS ORDERED: NORMAL SALINE 250 ML IV PRN ×2 (11:34)
--- NOTE | 2018-01-07 11:43 | PDOC PROGRESS REPORT ---
Subjective Progress Note for:: 01/07/18 Subjective:: Patient is currently doing much better Start eating the soft diet without any problems She is denied any chest pain denied any shortness of the breath No Fever no chills Reason For Visit: ACUTE RESPIRATORY FAILURE,UTI,SEPSIS Physical Exam Vital Signs: Temp Pulse Resp BP Pulse Ox 98.6 F 77 18 103/45 L 97 01/07/18 07:36 01/07/18 07:46 01/07/18 07:46 01/07/18 07:36 01/07/18 07:46 Intake & Output 01/06/18 01/07/18 01/08/18 06:59 06:59 06:59 Intake Total 3750 1687 Output Total 1170 2510 Balance 2580 -823 Weight 74 kg 73.3 kg General appearance: PRESENT: no acute distress, well-developed, well-nourished Head exam: PRESENT: atraumatic, normocephalic Eye exam: PRESENT: conjunctiva pink, EOMI, PERRLA. ABSENT: scleral icterus Ear exam: PRESENT: normal external ear exam Mouth exam: PRESENT: moist, tongue midline Neck exam: PRESENT: full ROM. ABSENT: carotid bruit, JVD, lymphadenopathy, thyromegaly Respiratory exam: PRESENT: clear to auscultation wilfredo Cardiovascular exam: PRESENT: RRR. ABSENT: diastolic murmur, rubs, systolic murmur Pulses: PRESENT: normal dorsalis pedis pul, +2 pedal pulses bilateral Vascular exam: PRESENT: normal capillary refill GI/Abdominal exam: PRESENT: normal bowel sounds, soft. ABSENT: distended, guarding, mass, organolmegaly, rebound, tenderness Rectal exam: PRESENT: deferred Neurological exam: PRESENT: alert, awake, oriented to person, oriented to place , oriented to time, oriented to situation, CN II-XII grossly intact. ABSENT: motor sensory deficit Psychiatric exam: PRESENT: appropriate affect, normal mood. ABSENT: homicidal ideation, suicidal ideation Skin exam: PRESENT: dry, intact, warm. ABSENT: cyanosis, rash Results Laboratory Results: 01/07/18 07:30 01/07/18 05:20 01/07/18 01/07/18 01/07/18 05:20 05:20 07:30 WBC Cancelled 8.2 RBC Cancelled 2.83 L Hgb Cancelled 8.1 L Hct Cancelled 25.0 L MCV Cancelled 89 MCH Cancelled 28.8 MCHC Cancelled 32.5 RDW Cancelled 18.3 H Plt Count Cancelled 252 Seg Neutrophils % Cancelled 71.7 Lymphocytes % Cancelled 14.9 Monocytes % Cancelled 12.0 Eosinophils % Cancelled 0.9 Basophils % Cancelled 0.5 Absolute Neutrophils Cancelled 5.9 Absolute Lymphocytes Cancelled 1.2 Absolute Monocytes Cancelled 1.0 Absolute Eosinophils Cancelled 0.1 Absolute Basophils Cancelled 0.0 Sodium 139.4 Potassium 2.8 L* Chloride 100 Carbon Dioxide 40 H* Anion Gap -1 L BUN 4 L Creatinine 0.45 L Est GFR ( Amer) > 60 Est GFR (Non-Af Amer) > 60 Glucose 97 Calcium 8.1 L 12/29/17 04:00 Tracheal Aspirate Gram Stain - Final 12/29/17 04:00 Tracheal Aspirate Sputum Culture - Final Yeast, Not Shobha Albicans Greatly Reduced Normal Geraldine 12/27/17 12/27/17 12/27/17 00:40 00:40 06:30 Creatine Kinase 36 26 L CK-MB (CK-2) 1.99 Troponin I < 0.012 12/27/17 12/27/17 12/27/17 06:30 12:35 12:35 Creatine Kinase 49 CK-MB (CK-2) 0.81 0.50 Troponin I < 0.012 < 0.012 Impressions: Small Bowel X-Ray 01/03/18 00:00 IMPRESSION: Partial small bowel obstruction with transition point in the deep midline pelvis Chest X-Ray 01/03/18 05:00 IMPRESSION: 1. No evidence of acute intrathoracic disease or significant change since the prior study. 2. Grossly stable life support lines and tubes. KUB X-Ray 01/04/18 00:00 IMPRESSION: Resolving generalized small bowel ileus. Abdomen/Pelvis CT 01/04/18 04:00 IMPRESSION: 1. Since the prior study on 01/02/2018 ,there has been overall decrease in generalized mall bowel distention particularly distally. There is now contrast throughout the colon to the rectum. The findings are most consistent with resolving generalized ileus and/or partial obstruction. 2. Mild ectasia of renal upper collecting systems and renal pelvii again noted unchanged. 3. Interval resolution of pelvic ascites. Persistent soft tissue anasarca. 4. Chronic bibasilar interstitial change and pleural thickening. Assessment & Plan - Diagnosis (1) Acute respiratory failure Qualifiers: Respiratory failure complication: hypoxia Qualified Code(s): J96.01 - Acute respiratory failure with hypoxia Is this a current diagnosis for this admission?: Yes Plan: Currently all resolved (2) Urinary tract infection Qualifiers: Urinary tract infection type: site unspecified Is this a current diagnosis for this admission?: Yes Plan: Will DC the IV antibiotic recheck the urine culture (3) Depression Qualifiers: Depression Type: major depressive disorder Is this a current diagnosis for this admission?: Yes Plan: Patients follow with the psych (4) COPD exacerbation Is this a current diagnosis for this admission?: Yes Plan: Currently all getting better (5) Diabetes Qualifiers: Diabetes mellitus type: type 2 Is this a current diagnosis for this admission?: Yes Plan: Continues to sliding-scale (6) Generalized anxiety disorder Is this a current diagnosis for this admission?: Yes Plan: Once the patient extubated will restart the patient's psych medications (7) Hypertension Qualifiers: Hypertension type: essential hypertension Is this a current diagnosis for this admission?: Yes (8) Gastroesophageal reflux disease Qualifiers: Esophagitis presence: without esophagitis Qualified Code(s): K21.9 - Gastro -esophageal reflux disease without esophagitis Is this a current diagnosis for this admission?: Yes Plan: Continues to Protonix (9) Anemia Qualifiers: Anemia type: iron deficiency Is this a current diagnosis for this admission?: Yes Plan: No sign of any acute bleeding discussed with the Dr. Quiroga possible colonoscopy and will transfuse 1 unit of the blood (10) Ileus Is this a current diagnosis for this admission?: Yes Plan: Currently all resolved - Time Time Spent with patient: 15-24 minutes Medications reviewed and adjusted accordingly: Yes Anticipated discharge: SNF Within: Other - Inpatient Certification Medical Necessity: Need Close Monitoring Due to Risk of Patient Decompensation Post Hospital Care: D/C [employer] Documentation - Plan Summary Plan Summary: DC the IV gentamicin's Continues to current other medications 1 unit of the blood
--- NOTE | 2018-01-07 12:27 | PDOC PROGRESS REPORT ---
Subjective Progress Note for:: 01/07/18 Subjective:: Spoke with Dr Xavier patient continues to have chronic anemia transferred out of ICU ileus has resolved patient however requiring transfusion will schedule for colonoscopy patient denies any abdominal pain will be on clears today prep later on today will schedule ? if needs Propofol Reason For Visit: ACUTE RESPIRATORY FAILURE,UTI,SEPSIS Physical Exam Vital Signs: Temp Pulse Resp BP Pulse Ox 98.9 F 78 20 116/50 L 100 01/07/18 11:40 01/07/18 11:40 01/07/18 11:40 01/07/18 11:40 01/07/18 11:40 Intake & Output 01/06/18 01/07/18 01/08/18 06:59 06:59 06:59 Intake Total 3750 1687 Output Total 1170 2510 Balance 2580 -823 Weight 74 kg 73.3 kg General appearance: PRESENT: no acute distress, well-developed, well-nourished Head exam: PRESENT: atraumatic, normocephalic Eye exam: PRESENT: EOMI, PERRLA. ABSENT: nystagmus, scleral icterus Mouth exam: PRESENT: moist, neck supple Throat exam: ABSENT: tonsillar exudate, tonsillogmegaly Neck exam: ABSENT: meningismus, tenderness Respiratory exam: PRESENT: symmetrical, unlabored. ABSENT: tachypnea, wheezes Cardiovascular exam: PRESENT: RRR, +S1, +S2 GI/Abdominal exam: PRESENT: soft. ABSENT: rebound, rigid, tenderness Extremities exam: ABSENT: joint swelling Musculoskeletal exam: PRESENT: full ROM Neurological exam: PRESENT: oriented to time, oriented to situation, CN II-XII grossly intact Focused psych exam: ABSENT: restlessness Skin exam: PRESENT: normal color. ABSENT: mottled, pallor, urticaria, vesicles Results Laboratory Results: 01/07/18 07:30 01/07/18 05:20 01/07/18 01/07/18 01/07/18 05:20 05:20 07:30 WBC Cancelled 8.2 RBC Cancelled 2.83 L Hgb Cancelled 8.1 L Hct Cancelled 25.0 L MCV Cancelled 89 MCH Cancelled 28.8 MCHC Cancelled 32.5 RDW Cancelled 18.3 H Plt Count Cancelled 252 Seg Neutrophils % Cancelled 71.7 Lymphocytes % Cancelled 14.9 Monocytes % Cancelled 12.0 Eosinophils % Cancelled 0.9 Basophils % Cancelled 0.5 Absolute Neutrophils Cancelled 5.9 Absolute Lymphocytes Cancelled 1.2 Absolute Monocytes Cancelled 1.0 Absolute Eosinophils Cancelled 0.1 Absolute Basophils Cancelled 0.0 Sodium 139.4 Potassium 2.8 L* Chloride 100 Carbon Dioxide 40 H* Anion Gap -1 L BUN 4 L Creatinine 0.45 L Est GFR ( Amer) > 60 Est GFR (Non-Af Amer) > 60 Glucose 97 Calcium 8.1 L 12/29/17 04:00 Tracheal Aspirate Gram Stain - Final 12/29/17 04:00 Tracheal Aspirate Sputum Culture - Final Yeast, Not Shobha Albicans Greatly Reduced Normal Geraldine 12/27/17 12/27/17 12/27/17 00:40 00:40 06:30 Creatine Kinase 36 26 L CK-MB (CK-2) 1.99 Troponin I < 0.012 12/27/17 12/27/17 12/27/17 06:30 12:35 12:35 Creatine Kinase 49 CK-MB (CK-2) 0.81 0.50 Troponin I < 0.012 < 0.012 Impressions: Small Bowel X-Ray 01/03/18 00:00 IMPRESSION: Partial small bowel obstruction with transition point in the deep midline pelvis Chest X-Ray 01/03/18 05:00 IMPRESSION: 1. No evidence of acute intrathoracic disease or significant change since the prior study. 2. Grossly stable life support lines and tubes. KUB X-Ray 01/04/18 00:00 IMPRESSION: Resolving generalized small bowel ileus. Abdomen/Pelvis CT 01/04/18 04:00 IMPRESSION: 1. Since the prior study on 01/02/2018 ,there has been overall decrease in generalized mall bowel distention particularly distally. There is now contrast throughout the colon to the rectum. The findings are most consistent with resolving generalized ileus and/or partial obstruction. 2. Mild ectasia of renal upper collecting systems and renal pelvii again noted unchanged. 3. Interval resolution of pelvic ascites. Persistent soft tissue anasarca. 4. Chronic bibasilar interstitial change and pleural thickening. Assessment & Plan - Diagnosis (1) Anemia Qualifiers: Anemia type: iron deficiency Is this a current diagnosis for this admission?: Yes Plan: recent EGD is negative ileus has resolved patient still requiring blood transfusion will schedule a colonoscopy Risks, benefits and alternatives are discussed with the patient in detail further recommendations to follow - Time Time Spent with patient: 15-24 minutes
[2018-01-07] MEDS: MAG HYDROX/AL HYDROX/SIMETH SUSP 30 ML UDCUP PO PRN (12:30)
[2018-01-07] MEDS ORDERED: PEG 3350/NA SULF,BICARB,CL/KCL 4000 ML PO ONE (14:00)
[2018-01-07] MEDS: ONDANSETRON 4 MG TAB.RAPDIS PO PRN (14:10)
[2018-01-07] MEDS ORDERED: POTASSIUM CHLORIDE 20 MEQ/50 ML RTU IV ONE ×2 (14:30→16:30)
[2018-01-08 00:14] LABS: ABSOLUTE EOSINOPHILS # (AUTO) 0.1 10^3/uL (0.0-0.6); ABSOLUTE LYMPHOCYTES (AUTO) 1.2 10^3/uL (0.5-4.7); ABSOLUTE MONOCYTES (AUTO) 1.1 10^3/uL (0.1-1.4); BASOPHILS % (AUTO) 0.4 % (0-2); EOSINOPHILS % (AUTO) 0.9 % (0-6); HEMATOCRIT 29.1 % (36.0-47.0); HEMOGLOBIN 9.8 g/dL (12.0-15.5); LYMPHOCYTES % (AUTO) 11.4 % (13-45); MEAN CORPUSCULAR HEMOGLOBIN 29.8 pg (27.0-33.4); MEAN CORPUSCULAR HGB CONC 33.5 g/dL (32.0-36.0); MEAN CORPUSCULAR VOLUME 89 fl (80-97); MONOCYTES % (AUTO) 10.6 % (3-13); PLATELET COUNT 273 10^3/uL (150-450); RED BLOOD COUNT 3.27 10^6/uL (3.72-5.28); RED CELL DISTRIBUTION WIDTH 18.6 % (11.5-14.0); SEGMENTED NEUTROPHILS % (AUTO) 76.7 % (42-78); TOTAL CELLS COUNTED % (AUTO) 100 %; WHITE BLOOD COUNT 10.5 10^3/uL (4.0-10.5)
[2018-01-08 00:25] LABS: BLOOD UREA NITROGEN 3 mg/dL (7-20); CALCIUM 8.2 mg/dL (8.4-10.2); CHLORIDE 99 mmol/L (98-107); GLUCOSE 91 mg/dL (75-110); POTASSIUM 3.6 mmol/L (3.6-5.0)
[2018-01-08 00:31] LABS: SODIUM 140.9 mmol/L (137-145)
[2018-01-08 00:34] LABS: ANION GAP 2 (5-19)
[2018-01-08 00:35] LABS: CARBON DIOXIDE 40 mmol/L (22-30)
[2018-01-08] MEDS: METRONIDAZOLE 500 MG/NS RTU 500 MG/100 ML RTUPB IV SCH ×4 (02:21→22:25)
[2018-01-08] MEDS: PIPERACILLIN SODIUM/TAZOBACTAM 3.375 GM in NORMAL SALINE 100 ML IV SCH ×4 (03:21→22:24)
[2018-01-08] MEDS: IPRATROPIUM/ALBUTEROL 0.5-2.5 MG/3 ML AMPUL NEB SCH ×5 (03:36→19:50)
[2018-01-08] MEDS: LEVOTHYROXINE SODIUM 0.025 MG TABLET PO SCH (05:23)
[2018-01-08] MEDS: LANSOPRAZOLE 30 MG TAB.RAP.DR PO SCH ×2 (05:24→17:46)
--- NOTE | 2018-01-08 07:33 | PDOC PROGRESS REPORT ---
Subjective Progress Note for:: 01/08/18 Subjective:: patient had been scheduled for colonoscopy for today I was called and informed that patient only drank a little of her prep is not clear, will not be able to proceed unless there she is clear I had ordered some Mg Citrate, I have spoken with Dr Xavier she would benefit from having her procedure done here as an inpatient, since can be supervised if scheduled as outpatient, will not be able to supervise prep Reason For Visit: ACUTE RESPIRATORY FAILURE,UTI,SEPSIS Physical Exam Vital Signs: Temp Pulse Resp BP Pulse Ox 98.9 F 88 19 117/49 L 97 01/08/18 04:10 01/08/18 04:10 01/08/18 04:10 01/08/18 04:10 01/08/18 04:10 Intake & Output 01/07/18 01/08/18 01/09/18 06:59 06:59 06:59 Intake Total 1687 2528 Output Total 2510 4500 Balance -823 -1972 Weight 73.3 kg 73.6 kg General appearance: PRESENT: no acute distress, well-developed, well-nourished Head exam: PRESENT: atraumatic, normocephalic Eye exam: PRESENT: EOMI, PERRLA. ABSENT: periorbital swelling, scleral icterus Mouth exam: PRESENT: moist, neck supple Throat exam: ABSENT: tonsillar exudate, tonsillogmegaly Neck exam: ABSENT: meningismus, tenderness, thyromegaly Respiratory exam: PRESENT: symmetrical, unlabored. ABSENT: tachypnea, wheezes Cardiovascular exam: PRESENT: RRR, +S1, +S2 GI/Abdominal exam: PRESENT: soft. ABSENT: rebound, rigid, tenderness Extremities exam: ABSENT: joint swelling Neurological exam: PRESENT: alert, awake, oriented to time, CN II-XII grossly intact Focused psych exam: ABSENT: restlessness Skin exam: PRESENT: normal color. ABSENT: mottled, pallor, petechiae, urticaria , vesicles Results Laboratory Results: 01/07/18 23:55 01/07/18 23:55 01/07/18 01/07/18 01/07/18 07:30 12:42 23:55 WBC 8.2 RBC 2.83 L Hgb 8.1 L Hct 25.0 L MCV 89 MCH 28.8 MCHC 32.5 RDW 18.3 H Plt Count 252 Seg Neutrophils % 71.7 Lymphocytes % 14.9 Monocytes % 12.0 Eosinophils % 0.9 Basophils % 0.5 Absolute Neutrophils 5.9 Absolute Lymphocytes 1.2 Absolute Monocytes 1.0 Absolute Eosinophils 0.1 Absolute Basophils 0.0 Sodium 140.9 Potassium 3.6 Chloride 99 Carbon Dioxide 40 H* Anion Gap 2 L BUN 3 L Creatinine 0.40 L Est GFR ( Amer) > 60 Est GFR (Non-Af Amer) > 60 Glucose 91 Calcium 8.2 L Blood Type A POSITIVE Antibody Screen NEGATIVE 01/07/18 23:55 WBC 10.5 RBC 3.27 L Hgb 9.8 L Hct 29.1 L MCV 89 MCH 29.8 MCHC 33.5 RDW 18.6 H Plt Count 273 Seg Neutrophils % 76.7 Lymphocytes % 11.4 L Monocytes % 10.6 Eosinophils % 0.9 Basophils % 0.4 Absolute Neutrophils 8.0 Absolute Lymphocytes 1.2 Absolute Monocytes 1.1 Absolute Eosinophils 0.1 Absolute Basophils 0.0 Sodium Potassium Chloride Carbon Dioxide Anion Gap BUN Creatinine Est GFR ( Amer) Est GFR (Non-Af Amer) Glucose Calcium Blood Type Antibody Screen 12/27/17 12/27/17 12/27/17 00:40 00:40 06:30 Creatine Kinase 36 26 L CK-MB (CK-2) 1.99 Troponin I < 0.012 12/27/17 12/27/17 12/27/17 06:30 12:35 12:35 Creatine Kinase 49 CK-MB (CK-2) 0.81 0.50 Troponin I < 0.012 < 0.012 Impressions: Small Bowel X-Ray 01/03/18 00:00 IMPRESSION: Partial small bowel obstruction with transition point in the deep midline pelvis Chest X-Ray 01/03/18 05:00 IMPRESSION: 1. No evidence of acute intrathoracic disease or significant change since the prior study. 2. Grossly stable life support lines and tubes. KUB X-Ray 01/04/18 00:00 IMPRESSION: Resolving generalized small bowel ileus. Abdomen/Pelvis CT 01/04/18 04:00 IMPRESSION: 1. Since the prior study on 01/02/2018 ,there has been overall decrease in generalized mall bowel distention particularly distally. There is now contrast throughout the colon to the rectum. The findings are most consistent with resolving generalized ileus and/or partial obstruction. 2. Mild ectasia of renal upper collecting systems and renal pelvii again noted unchanged. 3. Interval resolution of pelvic ascites. Persistent soft tissue anasarca. 4. Chronic bibasilar interstitial change and pleural thickening. Assessment & Plan - Diagnosis (1) Anemia Qualifiers: Anemia type: iron deficiency Is this a current diagnosis for this admission?: Yes Plan: patient is resistant to finishing off prep Mg Citrate ordered however would be beneficial for patient to proceed with inpatient prep so that she can be supervised will see how she does if not clear today, then will defer colonoscopy until tomorrow to give her an extra day to get clean Dr Xavier is aware - Time Time Spent with patient: 15-24 minutes
[2018-01-08 07:45] LABS: ABSOLUTE EOSINOPHILS # (AUTO) 0.1 10^3/uL (0.0-0.6); ABSOLUTE LYMPHOCYTES (AUTO) 1.2 10^3/uL (0.5-4.7); ABSOLUTE NEUT (AUTO) 7.1 10^3/uL (1.7-8.2); BASOPHILS % (AUTO) 0.3 % (0-2); EOSINOPHILS % (AUTO) 1.4 % (0-6); HEMATOCRIT 28.7 % (36.0-47.0); HEMOGLOBIN 9.5 g/dL (12.0-15.5); LYMPHOCYTES % (AUTO) 12.8 % (13-45); MEAN CORPUSCULAR HEMOGLOBIN 29.7 pg (27.0-33.4); MEAN CORPUSCULAR HGB CONC 33.2 g/dL (32.0-36.0); MEAN CORPUSCULAR VOLUME 89 fl (80-97); MONOCYTES % (AUTO) 10.8 % (3-13); PLATELET COUNT 267 10^3/uL (150-450); RED BLOOD COUNT 3.22 10^6/uL (3.72-5.28); RED CELL DISTRIBUTION WIDTH 18.8 % (11.5-14.0); SEGMENTED NEUTROPHILS % (AUTO) 74.7 % (42-78); TOTAL CELLS COUNTED % (AUTO) 100 %; WHITE BLOOD COUNT 9.5 10^3/uL (4.0-10.5)
[2018-01-08 07:58] LABS: CALCIUM 8.1 mg/dL (8.4-10.2); GLUCOSE 81 mg/dL (75-110); POTASSIUM 3.3 mmol/L (3.6-5.0)
[2018-01-08] MEDS ORDERED: MAGNESIUM CITRATE 296 ML BOTTLE PO PRN (08:01)
[2018-01-08] MEDS: SERTRALINE HCL 50 MG TABLET PO SCH (08:04)
[2018-01-08] MEDS: QUETIAPINE FUMARATE 100 MG TABLET PO SCH ×3 (08:05→22:27)
[2018-01-08 08:09] LABS: BLOOD UREA NITROGEN < 2 mg/dL (7-20)
[2018-01-08 08:23] LABS: CHLORIDE 95 mmol/L (98-107); SODIUM 140.5 mmol/L (137-145)
[2018-01-08 08:38] LABS: ANION GAP 4 (5-19); CARBON DIOXIDE 42 mmol/L (22-30)
[2018-01-08] MEDS: POTASSI CL 20 MEQ/50 ML RIDER 20 MEQ/50 ML RTUPB IV SCH ×2 (09:30→11:54)
[2018-01-08] MEDS: FLUTICASONE/SALMETEROL DISKUS 500-50 MCG/DOSE IH SCH ×2 (09:41→22:43)
[2018-01-08] MEDS: DOCUSATE SODIUM 100 MG CAPSULE PO SCH ×2 (09:42→17:46)
[2018-01-08] MEDS: METHYLPREDNISOLONE INJ 40 MG/1 ML SDV IV SCH (09:43)
[2018-01-08] MEDS: ROFLUMILAST 500 MCG TABLET PO SCH (09:43)
[2018-01-08] MEDS: ENOXAPARIN SODIUM INJ 40 MG/0.4 ML DISP.SYRIN SUBCUT SCH (09:43)
[2018-01-08] MEDS: LORAZEPAM INJ 2 MG/1 ML VIAL IV PRN ×2 (10:16→17:29)
--- NOTE | 2018-01-08 13:12 | PDOC PROGRESS REPORT ---
Subjective Progress Note for:: 01/08/18 Subjective:: Patient is currently doing well Patient's denied any chest pain denied any shortness of the breath Patient scheduled for colonoscopy and prep is not good schedule tomorrow per Dr. Archer Reason For Visit: ACUTE RESPIRATORY FAILURE,UTI,SEPSIS Physical Exam Vital Signs: Temp Pulse Resp BP Pulse Ox 98.2 F 75 16 127/72 H 100 01/08/18 08:00 01/08/18 07:46 01/08/18 07:46 01/08/18 08:00 01/08/18 08:00 Intake & Output 01/07/18 01/08/18 01/09/18 06:59 06:59 06:59 Intake Total 1687 2528 250 Output Total 2510 4500 Balance -823 -1972 250 Weight 73.3 kg 73.6 kg General appearance: PRESENT: no acute distress, well-developed, well-nourished Head exam: PRESENT: atraumatic, normocephalic Eye exam: PRESENT: conjunctiva pink, EOMI, PERRLA. ABSENT: scleral icterus Ear exam: PRESENT: normal external ear exam Mouth exam: PRESENT: moist, tongue midline Neck exam: PRESENT: full ROM. ABSENT: carotid bruit, JVD, lymphadenopathy, thyromegaly Respiratory exam: PRESENT: clear to auscultation wilfredo Cardiovascular exam: PRESENT: RRR. ABSENT: diastolic murmur, rubs, systolic murmur Pulses: PRESENT: normal dorsalis pedis pul, +2 pedal pulses bilateral Vascular exam: PRESENT: normal capillary refill GI/Abdominal exam: PRESENT: normal bowel sounds, soft. ABSENT: distended, guarding, mass, organolmegaly, rebound, tenderness Rectal exam: PRESENT: deferred Extremities exam: ABSENT: pedal edema Neurological exam: PRESENT: alert, awake, oriented to person, oriented to place , oriented to time, oriented to situation, CN II-XII grossly intact. ABSENT: motor sensory deficit Psychiatric exam: PRESENT: appropriate affect, normal mood. ABSENT: homicidal ideation, suicidal ideation Skin exam: PRESENT: dry, intact, warm. ABSENT: cyanosis, rash Results Laboratory Results: 01/08/18 06:20 01/08/18 06:20 01/07/18 01/07/18 01/07/18 12:42 23:55 23:55 WBC 10.5 RBC 3.27 L Hgb 9.8 L Hct 29.1 L MCV 89 MCH 29.8 MCHC 33.5 RDW 18.6 H Plt Count 273 Seg Neutrophils % 76.7 Lymphocytes % 11.4 L Monocytes % 10.6 Eosinophils % 0.9 Basophils % 0.4 Absolute Neutrophils 8.0 Absolute Lymphocytes 1.2 Absolute Monocytes 1.1 Absolute Eosinophils 0.1 Absolute Basophils 0.0 Sodium 140.9 Potassium 3.6 Chloride 99 Carbon Dioxide 40 H* Anion Gap 2 L BUN 3 L Creatinine 0.40 L Est GFR ( Amer) > 60 Est GFR (Non-Af Amer) > 60 Glucose 91 Calcium 8.2 L Blood Type A POSITIVE Antibody Screen NEGATIVE 01/08/18 01/08/18 06:20 06:20 WBC 9.5 RBC 3.22 L Hgb 9.5 L Hct 28.7 L MCV 89 MCH 29.7 MCHC 33.2 RDW 18.8 H Plt Count 267 Seg Neutrophils % 74.7 Lymphocytes % 12.8 L Monocytes % 10.8 Eosinophils % 1.4 Basophils % 0.3 Absolute Neutrophils 7.1 Absolute Lymphocytes 1.2 Absolute Monocytes 1.0 Absolute Eosinophils 0.1 Absolute Basophils 0.0 Sodium 140.5 Potassium 3.3 L Chloride 95 L Carbon Dioxide 42 H* Anion Gap 4 L BUN < 2 L Creatinine 0.37 L Est GFR ( Amer) > 60 Est GFR (Non-Af Amer) > 60 Glucose 81 Calcium 8.1 L Blood Type Antibody Screen 12/27/17 12/27/17 12/27/17 00:40 00:40 06:30 Creatine Kinase 36 26 L CK-MB (CK-2) 1.99 Troponin I < 0.012 12/27/17 12/27/17 12/27/17 06:30 12:35 12:35 Creatine Kinase 49 CK-MB (CK-2) 0.81 0.50 Troponin I < 0.012 < 0.012 Impressions: Small Bowel X-Ray 01/03/18 00:00 IMPRESSION: Partial small bowel obstruction with transition point in the deep midline pelvis Chest X-Ray 01/03/18 05:00 IMPRESSION: 1. No evidence of acute intrathoracic disease or significant change since the prior study. 2. Grossly stable life support lines and tubes. KUB X-Ray 01/04/18 00:00 IMPRESSION: Resolving generalized small bowel ileus. Abdomen/Pelvis CT 01/04/18 04:00 IMPRESSION: 1. Since the prior study on 01/02/2018 ,there has been overall decrease in generalized mall bowel distention particularly distally. There is now contrast throughout the colon to the rectum. The findings are most consistent with resolving generalized ileus and/or partial obstruction. 2. Mild ectasia of renal upper collecting systems and renal pelvii again noted unchanged. 3. Interval resolution of pelvic ascites. Persistent soft tissue anasarca. 4. Chronic bibasilar interstitial change and pleural thickening. Assessment & Plan - Diagnosis (1) Acute respiratory failure Qualifiers: Respiratory failure complication: hypoxia Qualified Code(s): J96.01 - Acute respiratory failure with hypoxia Is this a current diagnosis for this admission?: Yes Plan: Currently all resolved (2) Urinary tract infection Qualifiers: Urinary tract infection type: site unspecified Is this a current diagnosis for this admission?: Yes Plan: Will DC the IV antibiotic recheck the urine culture (3) Depression Qualifiers: Depression Type: major depressive disorder Is this a current diagnosis for this admission?: Yes Plan: Patients follow with the psych (4) COPD exacerbation Is this a current diagnosis for this admission?: Yes Plan: Currently all getting better (5) Diabetes Qualifiers: Diabetes mellitus type: type 2 Is this a current diagnosis for this admission?: Yes Plan: Continues to sliding-scale (6) Generalized anxiety disorder Is this a current diagnosis for this admission?: Yes Plan: Once the patient extubated will restart the patient's psych medications (7) Hypertension Qualifiers: Hypertension type: essential hypertension Is this a current diagnosis for this admission?: Yes Plan: Currently all stable (8) Gastroesophageal reflux disease Qualifiers: Esophagitis presence: without esophagitis Qualified Code(s): K21.9 - Gastro -esophageal reflux disease without esophagitis Is this a current diagnosis for this admission?: Yes Plan: Continues to Protonix (9) Anemia Qualifiers: Anemia type: iron deficiency Is this a current diagnosis for this admission?: Yes Plan: Schedule the colonoscopy tomorrow (10) Ileus Is this a current diagnosis for this admission?: Yes Plan: Currently all resolved - Time Time Spent with patient: 25-34 minutes Medications reviewed and adjusted accordingly: Yes Anticipated discharge: Other Within: Other - Inpatient Certification Medical Necessity: Need Close Monitoring Due to Risk of Patient Decompensation Post Hospital Care: D/C Safety Professional Documentation - Plan Summary Plan Summary: Continues to current medications replace the potassium
[2018-01-08] MEDS: ONDANSETRON HCL INJ/PF 4 MG/2 ML SDV IV PRN (14:59)
[2018-01-09] MEDS: IPRATROPIUM/ALBUTEROL 0.5-2.5 MG/3 ML AMPUL NEB SCH ×6 (00:26→20:11)
[2018-01-09] MEDS: METRONIDAZOLE 500 MG/NS RTU 500 MG/100 ML RTUPB IV SCH (02:35)
[2018-01-09] MEDS: PIPERACILLIN SODIUM/TAZOBACTAM 3.375 GM in NORMAL SALINE 100 ML IV SCH (02:41)
[2018-01-09] MEDS: LEVOTHYROXINE SODIUM 0.025 MG TABLET PO SCH (05:46)
[2018-01-09] MEDS: LANSOPRAZOLE 30 MG TAB.RAP.DR PO SCH ×2 (05:47→19:00)
[2018-01-09 06:57] LABS: ABSOLUTE EOSINOPHILS # (AUTO) 0.1 10^3/uL (0.0-0.6); ABSOLUTE MONOCYTES (AUTO) 0.9 10^3/uL (0.1-1.4); ABSOLUTE NEUT (AUTO) 7.4 10^3/uL (1.7-8.2); BASOPHILS % (AUTO) 0.3 % (0-2); EOSINOPHILS % (AUTO) 1.5 % (0-6); HEMATOCRIT 30.2 % (36.0-47.0); HEMOGLOBIN 9.8 g/dL (12.0-15.5); LYMPHOCYTES % (AUTO) 10.3 % (13-45); MEAN CORPUSCULAR HEMOGLOBIN 28.7 pg (27.0-33.4); MEAN CORPUSCULAR HGB CONC 32.3 g/dL (32.0-36.0); MEAN CORPUSCULAR VOLUME 89 fl (80-97); MONOCYTES % (AUTO) 9.4 % (3-13); PLATELET COUNT 291 10^3/uL (150-450); RED CELL DISTRIBUTION WIDTH 18.5 % (11.5-14.0); SEGMENTED NEUTROPHILS % (AUTO) 78.5 % (42-78); TOTAL CELLS COUNTED % (AUTO) 100 %; WHITE BLOOD COUNT 9.4 10^3/uL (4.0-10.5)
[2018-01-09 07:07] LABS: BLOOD UREA NITROGEN 3 mg/dL (7-20); CALCIUM 8.1 mg/dL (8.4-10.2); CHLORIDE 95 mmol/L (98-107); GLUCOSE 83 mg/dL (75-110)
[2018-01-09 07:24] LABS: POTASSIUM 4.2 mmol/L (3.6-5.0); SODIUM 136.9 mmol/L (137-145)
[2018-01-09 07:39] LABS: ANION GAP 2 (5-19); CARBON DIOXIDE 40 mmol/L (22-30)
[2018-01-09] MEDS: QUETIAPINE FUMARATE 100 MG TABLET PO SCH ×3 (08:54→21:39)
[2018-01-09] MEDS: SERTRALINE HCL 50 MG TABLET PO SCH (08:54)
[2018-01-09] MEDS: FLUTICASONE/SALMETEROL DISKUS 500-50 MCG/DOSE IH SCH ×2 (09:16→21:42)
[2018-01-09] MEDS: ACETAMINOPHEN 325 MG TABLET PO PRN ×2 (09:17→19:53)
[2018-01-09] MEDS: ENOXAPARIN SODIUM INJ 40 MG/0.4 ML DISP.SYRIN SUBCUT SCH (09:19)
[2018-01-09] MEDS: DOCUSATE SODIUM 100 MG CAPSULE PO SCH ×2 (09:19→19:00)
[2018-01-09] MEDS: ROFLUMILAST 500 MCG TABLET PO SCH (09:40)
[2018-01-09] MEDS: METHYLPREDNISOLONE INJ 40 MG/1 ML SDV IV SCH (09:40)
--- NOTE | 2018-01-09 10:13 | PDOC PROGRESS REPORT ---
Subjective Progress Note for:: 01/09/18 Subjective:: Patient is currently doing much better She is scheduled for colonoscopy today Patient's denied any chest pain denied any shortness of the breath No abdominal pain no nausea no vomiting and no fever Reason For Visit: ACUTE RESPIRATORY FAILURE,UTI,SEPSIS Physical Exam Vital Signs: Temp Pulse Resp BP Pulse Ox 98.4 F 80 17 110/58 L 95 01/09/18 07:23 01/09/18 08:08 01/09/18 08:08 01/09/18 07:23 01/09/18 08:08 Intake & Output 01/08/18 01/09/18 01/10/18 06:59 06:59 06:59 Intake Total 2528 1320 Output Total 4500 3230 Balance -1971 -1909 Weight 73.6 kg 73.6 kg General appearance: PRESENT: no acute distress, well-developed, well-nourished Head exam: PRESENT: atraumatic, normocephalic Eye exam: PRESENT: conjunctiva pink, EOMI, PERRLA. ABSENT: scleral icterus Ear exam: PRESENT: normal external ear exam Mouth exam: PRESENT: moist, tongue midline Neck exam: PRESENT: full ROM. ABSENT: carotid bruit, JVD, lymphadenopathy, thyromegaly Respiratory exam: PRESENT: clear to auscultation wilfredo Cardiovascular exam: PRESENT: RRR. ABSENT: diastolic murmur, rubs, systolic murmur Pulses: PRESENT: normal dorsalis pedis pul, +2 pedal pulses bilateral Vascular exam: PRESENT: normal capillary refill GI/Abdominal exam: PRESENT: normal bowel sounds, soft. ABSENT: distended, guarding, mass, organolmegaly, rebound, tenderness Rectal exam: PRESENT: deferred Extremities exam: ABSENT: pedal edema Neurological exam: PRESENT: alert, awake, oriented to person, oriented to place , oriented to time, oriented to situation, CN II-XII grossly intact. ABSENT: motor sensory deficit Psychiatric exam: PRESENT: appropriate affect, normal mood. ABSENT: homicidal ideation, suicidal ideation Skin exam: PRESENT: dry, intact, warm. ABSENT: cyanosis, rash Results Laboratory Results: 01/09/18 06:45 01/09/18 06:45 01/09/18 01/09/18 06:45 06:45 WBC 9.4 RBC 3.40 L Hgb 9.8 L Hct 30.2 L MCV 89 MCH 28.7 MCHC 32.3 RDW 18.5 H Plt Count 291 Seg Neutrophils % 78.5 H Lymphocytes % 10.3 L Monocytes % 9.4 Eosinophils % 1.5 Basophils % 0.3 Absolute Neutrophils 7.4 Absolute Lymphocytes 1.0 Absolute Monocytes 0.9 Absolute Eosinophils 0.1 Absolute Basophils 0.0 Sodium 136.9 L Potassium 4.2 Chloride 95 L Carbon Dioxide 40 H* Anion Gap 2 L BUN 3 L Creatinine 0.34 L Est GFR ( Amer) > 60 Est GFR (Non-Af Amer) > 60 Glucose 83 Calcium 8.1 L 12/27/17 12/27/17 12/27/17 00:40 00:40 06:30 Creatine Kinase 36 26 L CK-MB (CK-2) 1.99 Troponin I < 0.012 12/27/17 12/27/17 12/27/17 06:30 12:35 12:35 Creatine Kinase 49 CK-MB (CK-2) 0.81 0.50 Troponin I < 0.012 < 0.012 Impressions: Small Bowel X-Ray 01/03/18 00:00 IMPRESSION: Partial small bowel obstruction with transition point in the deep midline pelvis Chest X-Ray 01/03/18 05:00 IMPRESSION: 1. No evidence of acute intrathoracic disease or significant change since the prior study. 2. Grossly stable life support lines and tubes. KUB X-Ray 01/04/18 00:00 IMPRESSION: Resolving generalized small bowel ileus. Abdomen/Pelvis CT 01/04/18 04:00 IMPRESSION: 1. Since the prior study on 01/02/2018 ,there has been overall decrease in generalized mall bowel distention particularly distally. There is now contrast throughout the colon to the rectum. The findings are most consistent with resolving generalized ileus and/or partial obstruction. 2. Mild ectasia of renal upper collecting systems and renal pelvii again noted unchanged. 3. Interval resolution of pelvic ascites. Persistent soft tissue anasarca. 4. Chronic bibasilar interstitial change and pleural thickening. Assessment & Plan - Diagnosis (1) Acute respiratory failure Qualifiers: Respiratory failure complication: hypoxia Qualified Code(s): J96.01 - Acute respiratory failure with hypoxia Is this a current diagnosis for this admission?: Yes Plan: Currently all resolved (2) Urinary tract infection Qualifiers: Urinary tract infection type: site unspecified Is this a current diagnosis for this admission?: Yes Plan: Currently all resolved (3) Depression Qualifiers: Depression Type: major depressive disorder Is this a current diagnosis for this admission?: Yes Plan: Patients follow with the psych (4) COPD exacerbation Is this a current diagnosis for this admission?: Yes Plan: Currently all getting better (5) Diabetes Qualifiers: Diabetes mellitus type: type 2 Is this a current diagnosis for this admission?: Yes Plan: Continues to sliding-scale (6) Generalized anxiety disorder Is this a current diagnosis for this admission?: Yes Plan: Once the patient extubated will restart the patient's psych medications (7) Hypertension Qualifiers: Hypertension type: essential hypertension Is this a current diagnosis for this admission?: Yes Plan: Currently all stable (8) Gastroesophageal reflux disease Qualifiers: Esophagitis presence: without esophagitis Qualified Code(s): K21.9 - Gastro -esophageal reflux disease without esophagitis Is this a current diagnosis for this admission?: Yes Plan: Continues to Protonix (9) Anemia Qualifiers: Anemia type: iron deficiency Is this a current diagnosis for this admission?: Yes Plan: Going for colonoscopy today (10) Ileus Is this a current diagnosis for this admission?: Yes - Time Time Spent with patient: 15-24 minutes Medications reviewed and adjusted accordingly: Yes Anticipated discharge: SNF Within: Other - Inpatient Certification Medical Necessity: Need Close Monitoring Due to Risk of Patient Decompensation Post Hospital Care: D/C Crop Quantitative Geneticist Documentation - Plan Summary Plan Summary: Will discontinue his IV of antibiotics continues to current medications wait for colonoscopy
[2018-01-09] MEDS ORDERED: PROPOFOL INJ 200 MG/20 ML VIAL IV ONE (11:21)
--- NOTE | 2018-01-09 14:13 | Operative Report ---
Operative Report DATE OF SURGERY: 01/09/18 Operative Report: The risks, benefits and alternatives of the procedure including the risk of bleeding, perforation requiring surgery are explained to the patient in detail and informed consent is obtained. Patient is brought back to the operating room and placed in a left, lateral decubital position. Timeout was called. Propofol medication is administered. Rectal examination is done which did not reveal any masses, tears or fissures. An Olympus videoscope was inserted the patient's rectum. Scope was then carefully advanced all the way to the cecum. The cecum was identified by the usual anatomical landmarks including the ileocecal valve as well as appendiceal office. Photodocumentation is obtained. The scope was then sequentially pulled back via the rest segments of the colon including the ascending colon, hepatic flexure, transverse colon, splenic flexure, descending colon and finding to the rectosigmoid portions of the colon. Retroflexion maneuvers performed. Scope withdrawal time was 12 minutes. PREOPERATIVE DIAGNOSIS: Possible GI bleeding POSTOPERATIVE DIAGNOSIS: No active bleeding noted. Polyp in the ascending colon status post removal via snare polypectomy and retrieved. Right side colon inflammation status post biopsy rule out lymphocytic, microscopic, collagenous colitis OPERATION: Colonoscopy with biopsy SURGEON: GABRIEL BARBOUR ANESTHESIA: LMAC TISSUE REMOVED OR ALTERED: As noted above COMPLICATIONS: None. ESTIMATED BLOOD LOSS: None. INTRAOPERATIVE FINDINGS: As noted above. PROCEDURE: Patient tolerated procedure well. No immediate postprocedure comp occasions are noted. Patient discharged in good condition from [facility] She is sent back to her room in good condition Discharge diet: Regular. Discharge activity: Regular. 2-3-week follow-up to discuss findings. Patient is instructed call the office or proceed to the emergency room should there be any further problems or questions. 3-5-year surveillance colonoscopy.
[2018-01-09] MEDS: LORAZEPAM INJ 2 MG/1 ML VIAL IV PRN (15:21)
[2018-01-09] MEDS: ONDANSETRON 4 MG TAB.RAPDIS PO PRN (19:53)
[2018-01-10] MEDS: IPRATROPIUM/ALBUTEROL 0.5-2.5 MG/3 ML AMPUL NEB SCH ×7 (00:01→23:44)
[2018-01-10] MEDS: LEVOTHYROXINE SODIUM 0.025 MG TABLET PO SCH (05:47)
[2018-01-10] MEDS: LANSOPRAZOLE 30 MG TAB.RAP.DR PO SCH ×2 (05:48→17:28)
[2018-01-10 06:44] LABS: BLOOD UREA NITROGEN 7 mg/dL (7-20); CALCIUM 8.3 mg/dL (8.4-10.2); CHLORIDE 96 mmol/L (98-107); GLUCOSE 90 mg/dL (75-110); POTASSIUM 3.9 mmol/L (3.6-5.0)
[2018-01-10 07:02] LABS: SODIUM 139.2 mmol/L (137-145)
[2018-01-10 07:03] LABS: ANION GAP 3 (5-19)
[2018-01-10 07:06] LABS: CARBON DIOXIDE 40 mmol/L (22-30)
[2018-01-10] MEDS: QUETIAPINE FUMARATE 100 MG TABLET PO SCH ×3 (08:42→22:32)
[2018-01-10] MEDS: SERTRALINE HCL 50 MG TABLET PO SCH (08:42)
[2018-01-10] MEDS: ONDANSETRON HCL INJ/PF 4 MG/2 ML SDV IV PRN ×3 (08:49→17:28)
[2018-01-10] MEDS: LORAZEPAM INJ 2 MG/1 ML VIAL IV PRN ×2 (08:49→14:53)
[2018-01-10] MEDS: ROFLUMILAST 500 MCG TABLET PO SCH (10:39)
[2018-01-10] MEDS: DOCUSATE SODIUM 100 MG CAPSULE PO SCH ×2 (10:39→17:28)
[2018-01-10] MEDS: METHYLPREDNISOLONE INJ 40 MG/1 ML SDV IV SCH (10:39)
[2018-01-10] MEDS: ENOXAPARIN SODIUM INJ 40 MG/0.4 ML DISP.SYRIN SUBCUT SCH (10:43)
[2018-01-10] MEDS: FLUTICASONE/SALMETEROL DISKUS 500-50 MCG/DOSE IH SCH ×2 (10:43→22:32)
--- NOTE | 2018-01-10 13:02 | PDOC PROGRESS REPORT ---
Subjective Progress Note for:: 01/10/18 Subjective:: Patient is currently doing well underwent for the colonoscopy and according to the GI all stable Patient is complaining some mild discomfort in the right side of the abdomen but no nausea no vomiting in p.o. intake is good As per discussed with the pulmonary and suggest continues to current nebulizer treatments no need for any further antibiotic Patient is currently living at [facility] but not sure with the family sent to the nursing facility versus assisted living Patient had end-stage COPD and patients pretty much immobile Reason For Visit: ACUTE RESPIRATORY FAILURE,UTI,SEPSIS Physical Exam Vital Signs: Temp Pulse Resp BP Pulse Ox 98.6 F 82 17 100/46 L 96 01/10/18 08:00 01/10/18 11:48 01/10/18 11:48 01/10/18 08:00 01/10/18 11:48 Intake & Output 01/09/18 01/10/18 01/11/18 06:59 06:59 06:59 Intake Total 1320 643 Output Total 3230 2350 Balance -1910 -1707 Weight 73.6 kg 73.5 kg General appearance: PRESENT: no acute distress, well-developed, well-nourished Head exam: PRESENT: atraumatic, normocephalic Eye exam: PRESENT: conjunctiva pink, EOMI, PERRLA. ABSENT: scleral icterus Ear exam: PRESENT: normal external ear exam Mouth exam: PRESENT: moist, tongue midline Neck exam: PRESENT: full ROM. ABSENT: carotid bruit, JVD, lymphadenopathy, thyromegaly Respiratory exam: PRESENT: clear to auscultation wilfredo Cardiovascular exam: PRESENT: RRR. ABSENT: diastolic murmur, rubs, systolic murmur Pulses: PRESENT: normal dorsalis pedis pul, +2 pedal pulses bilateral Vascular exam: PRESENT: normal capillary refill GI/Abdominal exam: PRESENT: normal bowel sounds, soft. ABSENT: distended, guarding, mass, organolmegaly, rebound, tenderness Rectal exam: PRESENT: deferred Extremities exam: ABSENT: pedal edema Neurological exam: PRESENT: alert, awake, oriented to person, oriented to place , oriented to time, oriented to situation, CN II-XII grossly intact. ABSENT: motor sensory deficit Psychiatric exam: PRESENT: appropriate affect, normal mood. ABSENT: homicidal ideation, suicidal ideation Skin exam: PRESENT: dry, intact, warm. ABSENT: cyanosis, rash Results Laboratory Results: 01/09/18 06:45 01/10/18 06:00 01/10/18 06:00 Sodium 139.2 Potassium 3.9 Chloride 96 L Carbon Dioxide 40 H* Anion Gap 3 L BUN 7 Creatinine 0.51 L Est GFR ( Amer) > 60 Est GFR (Non-Af Amer) > 60 Glucose 90 Calcium 8.3 L 12/27/17 12/27/17 12/27/17 00:40 00:40 06:30 Creatine Kinase 36 26 L CK-MB (CK-2) 1.99 Troponin I < 0.012 12/27/17 12/27/17 12/27/17 06:30 12:35 12:35 Creatine Kinase 49 CK-MB (CK-2) 0.81 0.50 Troponin I < 0.012 < 0.012 Impressions: Small Bowel X-Ray 01/03/18 00:00 IMPRESSION: Partial small bowel obstruction with transition point in the deep midline pelvis Chest X-Ray 01/03/18 05:00 IMPRESSION: 1. No evidence of acute intrathoracic disease or significant change since the prior study. 2. Grossly stable life support lines and tubes. Abdomen/Pelvis CT 01/04/18 04:00 IMPRESSION: 1. Since the prior study on 01/02/2018 ,there has been overall decrease in generalized mall bowel distention particularly distally. There is now contrast throughout the colon to the rectum. The findings are most consistent with resolving generalized ileus and/or partial obstruction. 2. Mild ectasia of renal upper collecting systems and renal pelvii again noted unchanged. 3. Interval resolution of pelvic ascites. Persistent soft tissue anasarca. 4. Chronic bibasilar interstitial change and pleural thickening. Assessment & Plan - Diagnosis (1) Acute respiratory failure Qualifiers: Respiratory failure complication: hypoxia Qualified Code(s): J96.01 - Acute respiratory failure with hypoxia Is this a current diagnosis for this admission?: Yes Plan: Currently all resolved (2) Urinary tract infection Qualifiers: Urinary tract infection type: site unspecified Is this a current diagnosis for this admission?: Yes Plan: Currently all resolved (3) Depression Qualifiers: Depression Type: major depressive disorder Is this a current diagnosis for this admission?: Yes Plan: Patients follow with the psych (4) COPD exacerbation Is this a current diagnosis for this admission?: Yes Plan: Currently all getting better (5) Diabetes Qualifiers: Diabetes mellitus type: type 2 Is this a current diagnosis for this admission?: Yes Plan: Continues to sliding-scale (6) Generalized anxiety disorder Is this a current diagnosis for this admission?: Yes Plan: Once the patient extubated will restart the patient's psych medications (7) Hypertension Qualifiers: Hypertension type: essential hypertension Is this a current diagnosis for this admission?: Yes Plan: Currently all stable (8) Gastroesophageal reflux disease Qualifiers: Esophagitis presence: without esophagitis Qualified Code(s): K21.9 - Gastro -esophageal reflux disease without esophagitis Is this a current diagnosis for this admission?: Yes Plan: Continues to Protonix (9) Anemia Qualifiers: Anemia type: iron deficiency Is this a current diagnosis for this admission?: Yes Plan: Status post blood transfusion and colonoscopy is all stable (10) Ileus Is this a current diagnosis for this admission?: Yes - Time Time Spent with patient: 15-24 minutes Medications reviewed and adjusted accordingly: Yes Anticipated discharge: SNF Within: Other - Inpatient Certification Based on my medical assessment, after consideration of the patient's comorbidities, presenting symptoms, or acuity I expect that the services needed warrant INPATIENT care.: Yes I certify that my determination is in accordance with my understanding of Medicare's requirements for reasonable and necessary INPATIENT services [42 CFR 412.3e].: Yes Medical Necessity: Need Close Monitoring Due to Risk of Patient Decompensation Post Hospital Care: D/C Rehab Specialist Documentation - Plan Summary Plan Summary: Currently all stable
--- NOTE | 2018-01-10 13:09 | RADIOLOGY REPORT (SQ) ---
EXAM DESCRIPTION: KUB/ABDOMEN (SINGLE VIEW) COMPLETED DATE/TIME: 01/10/2018 12:41 pm REASON FOR STUDY: ABD PAIN COMPARISON: None. NUMBER OF VIEWS: One view. TECHNIQUE: Supine radiographic image of the abdomen acquired. LIMITATIONS: None. FINDINGS: BOWEL GAS PATTERN: Persistent prominent gas-filled loops of bowel with a generally nonobst ructive pattern. CALCIFICATIONS: No suspicious calcifications. SOFT TISSUES: No gross mass or suggestion of organomegaly. HARDWARE: None in the abdomen. BONES: No acute fracture. No worrisome bone lesions. OTHER: No other significant finding. IMPRESSION: There may be some degree of ileus. No acute or new findings in the abdomen. TECHNICAL DOCUMENTATION: JOB ID: [id number] [employer]- All Rights Reserved Reading location - IP/workstation name: [email or web address]
[2018-01-10] MEDS: ACETAMINOPHEN 325 MG TABLET PO PRN (17:32)
[2018-01-10] MEDS: LORAZEPAM 1 MG TABLET PO PRN (22:31)
[2018-01-11] MEDS: LANSOPRAZOLE 30 MG TAB.RAP.DR PO SCH ×2 (05:25→18:34)
[2018-01-11] MEDS: LORAZEPAM 1 MG TABLET PO PRN ×3 (05:25→18:34)
[2018-01-11] MEDS: LEVOTHYROXINE SODIUM 0.025 MG TABLET PO SCH (05:25)
[2018-01-11] MEDS: IPRATROPIUM/ALBUTEROL 0.5-2.5 MG/3 ML AMPUL NEB SCH ×5 (05:47→20:07)
[2018-01-11 06:08] LABS: ABSOLUTE EOSINOPHILS # (AUTO) 0.1 10^3/uL (0.0-0.6); ABSOLUTE LYMPHOCYTES (AUTO) 1.1 10^3/uL (0.5-4.7); ABSOLUTE MONOCYTES (AUTO) 1.1 10^3/uL (0.1-1.4); ABSOLUTE NEUT (AUTO) 7.2 10^3/uL (1.7-8.2); BASOPHILS % (AUTO) 0.3 % (0-2); EOSINOPHILS % (AUTO) 0.8 % (0-6); HEMATOCRIT 34.1 % (36.0-47.0); LYMPHOCYTES % (AUTO) 11.7 % (13-45); MEAN CORPUSCULAR HEMOGLOBIN 28.9 pg (27.0-33.4); MEAN CORPUSCULAR HGB CONC 32.3 g/dL (32.0-36.0); MEAN CORPUSCULAR VOLUME 90 fl (80-97); MONOCYTES % (AUTO) 11.1 % (3-13); PLATELET COUNT 314 10^3/uL (150-450); RED BLOOD COUNT 3.81 10^6/uL (3.72-5.28); RED CELL DISTRIBUTION WIDTH 17.9 % (11.5-14.0); SEGMENTED NEUTROPHILS % (AUTO) 76.1 % (42-78); TOTAL CELLS COUNTED % (AUTO) 100 %; WHITE BLOOD COUNT 9.5 10^3/uL (4.0-10.5)
[2018-01-11 06:21] LABS: BLOOD UREA NITROGEN 11 mg/dL (7-20); CALCIUM 9.2 mg/dL (8.4-10.2); CHLORIDE 94 mmol/L (98-107); GLUCOSE 96 mg/dL (75-110); POTASSIUM 4.1 mmol/L (3.6-5.0); SODIUM 139.3 mmol/L (137-145)
[2018-01-11 06:32] LABS: ANION GAP 4 (5-19); CARBON DIOXIDE 41 mmol/L (22-30)
[2018-01-11] MEDS: DOCUSATE SODIUM 100 MG CAPSULE PO SCH ×2 (10:39→18:34)
[2018-01-11] MEDS: ENOXAPARIN SODIUM INJ 40 MG/0.4 ML DISP.SYRIN SUBCUT SCH (10:39)
[2018-01-11] MEDS: METHYLPREDNISOLONE INJ 40 MG/1 ML SDV IV SCH (10:40)
[2018-01-11] MEDS: SERTRALINE HCL 50 MG TABLET PO SCH (10:40)
[2018-01-11] MEDS: ROFLUMILAST 500 MCG TABLET PO SCH (10:43)
[2018-01-11] MEDS: QUETIAPINE FUMARATE 100 MG TABLET PO SCH ×3 (10:44→21:39)
[2018-01-11] MEDS: FLUTICASONE/SALMETEROL DISKUS 500-50 MCG/DOSE IH SCH ×2 (10:45→21:39)
--- NOTE | 2018-01-11 13:17 | PDOC PROGRESS REPORT ---
Subjective Progress Note for:: 01/11/18 Subjective:: Patient remain on supplemental oxygen via nasal cannula. No chest pain. No fever or chills. No nausea, vomiting or abdominal pain. Reason For Visit: ACUTE RESPIRATORY FAILURE,UTI,SEPSIS Physical Exam Vital Signs: Temp Pulse Resp BP Pulse Ox 98.2 F 71 18 106/68 97 01/11/18 04:00 01/11/18 11:57 01/11/18 11:57 01/11/18 04:00 01/11/18 11:57 Intake & Output 01/10/18 01/11/18 01/12/18 06:59 06:59 06:59 Intake Total 643 650 Output Total 2350 1900 Balance -1707 -1250 Weight 73.5 kg 66.4 kg General appearance: PRESENT: no acute distress, well-developed, well-nourished Head exam: PRESENT: atraumatic, normocephalic Eye exam: PRESENT: conjunctiva pink, EOMI, PERRLA. ABSENT: scleral icterus Ear exam: PRESENT: normal external ear exam Mouth exam: PRESENT: moist Respiratory exam: PRESENT: clear to auscultation wilfredo Cardiovascular exam: PRESENT: RRR. ABSENT: diastolic murmur, rubs, systolic murmur Vascular exam: PRESENT: normal capillary refill. ABSENT: pallor GI/Abdominal exam: PRESENT: normal bowel sounds, soft. ABSENT: distended, guarding, mass, organolmegaly, rebound, tenderness Extremities exam: ABSENT: pedal edema Musculoskeletal exam: PRESENT: normal inspection Neurological exam: PRESENT: alert, awake, oriented to person, oriented to place , oriented to time, oriented to situation, CN II-XII grossly intact. ABSENT: motor sensory deficit Skin exam: PRESENT: dry, intact, warm. ABSENT: cyanosis, rash Results Laboratory Results: 01/11/18 05:45 01/11/18 05:45 01/11/18 01/11/18 05:45 05:45 WBC 9.5 RBC 3.81 Hgb 11.0 L Hct 34.1 L MCV 90 MCH 28.9 MCHC 32.3 RDW 17.9 H Plt Count 314 Seg Neutrophils % 76.1 Lymphocytes % 11.7 L Monocytes % 11.1 Eosinophils % 0.8 Basophils % 0.3 Absolute Neutrophils 7.2 Absolute Lymphocytes 1.1 Absolute Monocytes 1.1 Absolute Eosinophils 0.1 Absolute Basophils 0.0 Sodium 139.3 Potassium 4.1 Chloride 94 L Carbon Dioxide 41 H* Anion Gap 4 L BUN 11 Creatinine 0.58 Est GFR ( Amer) > 60 Est GFR (Non-Af Amer) > 60 Glucose 96 Calcium 9.2 12/27/17 12/27/17 12/27/17 00:40 00:40 06:30 Creatine Kinase 36 26 L CK-MB (CK-2) 1.99 Troponin I < 0.012 12/27/17 12/27/17 12/27/17 06:30 12:35 12:35 Creatine Kinase 49 CK-MB (CK-2) 0.81 0.50 Troponin I < 0.012 < 0.012 Impressions: Small Bowel X-Ray 01/03/18 00:00 IMPRESSION: Partial small bowel obstruction with transition point in the deep midline pelvis Chest X-Ray 01/03/18 05:00 IMPRESSION: 1. No evidence of acute intrathoracic disease or significant change since the prior study. 2. Grossly stable life support lines and tubes. Abdomen/Pelvis CT 01/04/18 04:00 IMPRESSION: 1. Since the prior study on 01/02/2018 ,there has been overall decrease in generalized mall bowel distention particularly distally. There is now contrast throughout the colon to the rectum. The findings are most consistent with resolving generalized ileus and/or partial obstruction. 2. Mild ectasia of renal upper collecting systems and renal pelvii again noted unchanged. 3. Interval resolution of pelvic ascites. Persistent soft tissue anasarca. 4. Chronic bibasilar interstitial change and pleural thickening. KUB X-Ray 01/10/18 00:00 IMPRESSION: There may be some degree of ileus. No acute or new findings in the abdomen. Assessment & Plan - Diagnosis (1) COPD (chronic obstructive pulmonary disease) Qualifiers: COPD type: chronic bronchitis Is this a current diagnosis for this admission?: Yes Plan: Serum CO2 on upward trend. Patient reported use of oxygen pre-admission on continuous bases. If upward trend persist she may need BiPAP support. (2) Diabetes mellitus type 2 in nonobese Is this a current diagnosis for this admission?: Yes (3) Anemia Qualifiers: Anemia type: iron deficiency Is this a current diagnosis for this admission?: Yes - Time Time Spent with patient: 25-34 minutes Medications reviewed and adjusted accordingly: Yes Anticipated discharge: SNF Within: Other - Inpatient Certification Based on my medical assessment, after consideration of the patient's comorbidities, presenting symptoms, or acuity I expect that the services needed warrant INPATIENT care.: Yes I certify that my determination is in accordance with my understanding of Medicare's requirements for reasonable and necessary INPATIENT services [42 CFR 412.3e].: Yes Medical Necessity: Need Close Monitoring Due to Risk of Patient Decompensation, Need For IV Fluids, Need For Continuous Telemetry Monitoring, Need for Nebulizer Therapy and Monitoring of Response, Risk of Complication if Not Cared For in Hospital Post Hospital Care: D/C or Transfer Summary - Plan Summary Plan Summary: Continue current medication management.
[2018-01-11] MEDS: ONDANSETRON 4 MG TAB.RAPDIS PO PRN (15:55)
[2018-01-12] MEDS: IPRATROPIUM/ALBUTEROL 0.5-2.5 MG/3 ML AMPUL NEB SCH ×6 (02:47→20:27)
[2018-01-12] MEDS: LEVOTHYROXINE SODIUM 0.025 MG TABLET PO SCH (05:17)
[2018-01-12] MEDS: LANSOPRAZOLE 30 MG TAB.RAP.DR PO SCH ×2 (05:17→17:15)
[2018-01-12 05:50] LABS: BLOOD UREA NITROGEN 10 mg/dL (7-20); CALCIUM 9.2 mg/dL (8.4-10.2); CARBON DIOXIDE 39 mmol/L (22-30); CHLORIDE 94 mmol/L (98-107); GLUCOSE 87 mg/dL (75-110); POTASSIUM 3.8 mmol/L (3.6-5.0); SODIUM 137.3 mmol/L (137-145)
[2018-01-12 05:55] LABS: ANION GAP 5 (5-19)
[2018-01-12] MEDS: LORAZEPAM 1 MG TABLET PO PRN ×3 (08:32→20:42)
[2018-01-12] MEDS: SERTRALINE HCL 50 MG TABLET PO SCH (08:32)
[2018-01-12] MEDS: ONDANSETRON 4 MG TAB.RAPDIS PO PRN ×3 (08:32→20:42)
[2018-01-12] MEDS: QUETIAPINE FUMARATE 100 MG TABLET PO SCH ×3 (08:32→21:40)
[2018-01-12] MEDS: MAG HYDROX/AL HYDROX/SIMETH SUSP 30 ML UDCUP PO PRN (09:49)
[2018-01-12] MEDS: METHYLPREDNISOLONE INJ 40 MG/1 ML SDV IV SCH (09:50)
[2018-01-12] MEDS: ENOXAPARIN SODIUM INJ 40 MG/0.4 ML DISP.SYRIN SUBCUT SCH (09:52)
[2018-01-12] MEDS: FLUTICASONE/SALMETEROL DISKUS 500-50 MCG/DOSE IH SCH ×2 (09:52→21:41)
[2018-01-12] MEDS: DOCUSATE SODIUM 100 MG CAPSULE PO SCH ×2 (09:54→17:16)
[2018-01-12] MEDS: ROFLUMILAST 500 MCG TABLET PO SCH (09:54)
--- NOTE | 2018-01-12 10:24 | PDOC PROGRESS REPORT ---
Subjective Progress Note for:: 01/12/18 Subjective:: No chest pain. Remain on supplemental oxygen via nasal cannula at 2L/min. No fever or chills. No nausea, vomiting or abdominal pain. Reason For Visit: ACUTE RESPIRATORY FAILURE,UTI,SEPSIS Physical Exam Vital Signs: Temp Pulse Resp BP Pulse Ox 98.3 F 99 14 125/94 H 99 01/12/18 08:00 01/12/18 08:00 01/12/18 08:00 01/12/18 08:00 01/12/18 08:00 Intake & Output 01/11/18 01/12/18 01/13/18 06:59 06:59 06:59 Intake Total 650 220 100 Output Total 1900 1400 Balance -1250 -1180 100 Weight 66.4 kg 66.4 kg Physical Exam: General appearance: PRESENT: no acute distress, well-developed, well-nourished Head exam: PRESENT: atraumatic, normocephalic Eye exam: PRESENT: conjunctiva pink, EOMI, PERRLA. ABSENT: scleral icterus Ear exam: PRESENT: normal external ear exam Mouth exam: PRESENT: moist Respiratory exam: PRESENT: clear to auscultation wilfredo Cardiovascular exam: PRESENT: RRR. ABSENT: diastolic murmur, rubs, systolic murmur Vascular exam: ABSENT: pallor GI/Abdominal exam: PRESENT: normal bowel sounds, soft. ABSENT: distended, guarding, mass, organomegaly, rebound, tenderness Extremities exam: ABSENT: pedal edema Musculoskeletal exam: PRESENT: normal inspection Neurological exam: PRESENT: alert, awake, oriented to person, oriented to place , oriented to time, oriented to situation, CN II-XII grossly intact. ABSENT: motor sensory deficit Skin exam: PRESENT: dry, intact, warm. ABSENT: cyanosis, rash Results Laboratory Results: 01/11/18 05:45 01/12/18 05:25 01/12/18 05:25 Sodium 137.3 Potassium 3.8 Chloride 94 L Carbon Dioxide 39 H Anion Gap 5 BUN 10 Creatinine 0.51 L Est GFR ( Amer) > 60 Est GFR (Non-Af Amer) > 60 Glucose 87 Calcium 9.2 12/27/17 12/27/17 12/27/17 00:40 00:40 06:30 Creatine Kinase 36 26 L CK-MB (CK-2) 1.99 Troponin I < 0.012 12/27/17 12/27/17 12/27/17 06:30 12:35 12:35 Creatine Kinase 49 CK-MB (CK-2) 0.81 0.50 Troponin I < 0.012 < 0.012 Impressions: Small Bowel X-Ray 01/03/18 00:00 IMPRESSION: Partial small bowel obstruction with transition point in the deep midline pelvis Chest X-Ray 01/03/18 05:00 IMPRESSION: 1. No evidence of acute intrathoracic disease or significant change since the prior study. 2. Grossly stable life support lines and tubes. Abdomen/Pelvis CT 01/04/18 04:00 IMPRESSION: 1. Since the prior study on 01/02/2018 ,there has been overall decrease in generalized mall bowel distention particularly distally. There is now contrast throughout the colon to the rectum. The findings are most consistent with resolving generalized ileus and/or partial obstruction. 2. Mild ectasia of renal upper collecting systems and renal pelvii again noted unchanged. 3. Interval resolution of pelvic ascites. Persistent soft tissue anasarca. 4. Chronic bibasilar interstitial change and pleural thickening. KUB X-Ray 01/10/18 00:00 IMPRESSION: There may be some degree of ileus. No acute or new findings in the abdomen. Assessment & Plan - Diagnosis (1) COPD (chronic obstructive pulmonary disease) Qualifiers: COPD type: chronic bronchitis Is this a current diagnosis for this admission?: Yes (2) Diabetes mellitus type 2 in nonobese Is this a current diagnosis for this admission?: Yes (3) Anemia Qualifiers: Anemia type: iron deficiency Is this a current diagnosis for this admission?: Yes - Time Time Spent with patient: 25-34 minutes Medications reviewed and adjusted accordingly: Yes Anticipated discharge: SNF Within: Other - Inpatient Certification Based on my medical assessment, after consideration of the patient's comorbidities, presenting symptoms, or acuity I expect that the services needed warrant INPATIENT care.: Yes I certify that my determination is in accordance with my understanding of Medicare's requirements for reasonable and necessary INPATIENT services [42 CFR 412.3e].: Yes Medical Necessity: Need Close Monitoring Due to Risk of Patient Decompensation, Need For Continuous Telemetry Monitoring, Risk of Complication if Not Cared For in Hospital Post Hospital Care: D/C or Transfer Summary - Plan Summary Plan Summary: Continue current medication management. Possible transfer to SNF for short term rehabilitation tomorrow.
[2018-01-13] MEDS: IPRATROPIUM/ALBUTEROL 0.5-2.5 MG/3 ML AMPUL NEB SCH ×7 (01:12→23:32)
[2018-01-13] MEDS: LANSOPRAZOLE 30 MG TAB.RAP.DR PO SCH ×2 (05:05→16:59)
[2018-01-13] MEDS: LEVOTHYROXINE SODIUM 0.025 MG TABLET PO SCH (05:05)
[2018-01-13] MEDS: ONDANSETRON 4 MG TAB.RAPDIS PO PRN ×3 (05:13→20:15)
[2018-01-13] MEDS: LORAZEPAM 1 MG TABLET PO PRN ×3 (05:13→17:49)
[2018-01-13 05:48] LABS: BLOOD UREA NITROGEN 12 mg/dL (7-20); CHLORIDE 92 mmol/L (98-107); GLUCOSE 87 mg/dL (75-110); POTASSIUM 4.2 mmol/L (3.6-5.0); SODIUM 137.2 mmol/L (137-145)
[2018-01-13 06:50] LABS: ANION GAP 6 (5-19); CARBON DIOXIDE 39 mmol/L (22-30)
--- NOTE | 2018-01-13 08:13 | PDOC TRANSFER SUMMARY ---
General - Admit/Disc Date/PCP Admission Date/Primary Care Provider: 12/26/17 21:15 SILVINA KABA MD Discharge Date: 01/13/18 - Discharge Diagnosis (1) Acute respiratory failure Is this a current diagnosis for this admission?: Yes Summary: Currently all resolved (2) Urinary tract infection Is this a current diagnosis for this admission?: Yes Summary: Currently all resolved (3) Depression Is this a current diagnosis for this admission?: Yes Summary: Patient is currently see the psych Daya Sam (4) COPD exacerbation Is this a current diagnosis for this admission?: Yes Summary: Continues to Advair and nebulizer treatmentsFollow with the pulmonary doctor meaghan In 1 week (5) Diabetes Is this a current diagnosis for this admission?: Yes Summary: Continues to sliding scales check her blood sugars once a day (6) Generalized anxiety disorder Is this a current diagnosis for this admission?: Yes Summary: Currently all stable (7) Hypertension Is this a current diagnosis for this admission?: Yes Summary: Continues to current medication (8) Gastroesophageal reflux disease Is this a current diagnosis for this admission?: Yes Summary: Continues to omeprazole (9) Anemia Is this a current diagnosis for this admission?: Yes Summary: Currently all stable (10) Ileus Is this a current diagnosis for this admission?: Yes Summary: Currently all resolved - Additional Information Resuscitation Status: Full Code Discharge Diet: Diabetic Discharge Activity: Activity As Tolerated Prescriptions: Fluticasone/Salmeterol [Advair 500-50 Diskus 14 Dose/Diskus] 1 inh IH Q12 #60 inhaler Insulin Regular, Human [Humulin R (Reg) Insulin 100 unit/mL] 0 - 12 unit SUBCUT Q6HP PRN #1 unit PRN Reason: Mag Hydrox/Al Hydrox/Simeth [Maalox Plus Susp 30 Udcup] 30 ml PO Q6HP PRN #90 udc PRN Reason: Home Medications: Albuterol Sulfate [Proair HFA Inhalation Aerosol 8.5 gm MDI] 2 puff IN Q6HP PRN 12/26/17 Amlodipine Besylate [Norvasc 2.5 mg Tablet] 2.5 mg PO DAILY 12/26/17 Aspirin [Ecotrin 81 mg EC Tablet] 81 mg PO DAILY 12/26/17 Benzonatate [Tessalon Perle 100 mg Capsule] 100 mg PO TIDP PRN 12/26/17 Dicyclomine HCl [Bentyl 10 mg Capsule] 10 mg PO TID 12/26/17 Ferrous Sulfate 324 mg PO BID 12/26/17 Furosemide [Lasix 20 mg Tablet] 20 mg PO Q3D 12/26/17 Gabapentin [Neurontin 100 mg Capsule] 100 mg PO Q8 12/26/17 Ipratropium/Albuterol Sulfate [Iprat-Albut 0.5-3(2.5) mg/3 ml] 3 ml NEB Q6 12/26 Levothyroxine Sodium [Synthroid 0.025 mg Tablet] 0.025 mg PO Q6AM 12/26/17 Lorazepam [Ativan 1 mg Tablet] 1 mg PO Q6HP PRN 12/26/17 Omeprazole 40 mg PO DAILY 12/26/17 Ondansetron HCl [Zofran 4 mg Tablet] 4 mg PO Q6HP PRN 12/26/17 Quetiapine Fumarate [Seroquel 100 mg Tablet] 150 mg PO BID@0800,1200 12/26/17 Quetiapine Fumarate [Seroquel] 400 mg PO QHS 12/26/17 Roflumilast [Daliresp 500 mcg Tablet] 500 mcg PO DAILY 12/26/17 Rosuvastatin Calcium [Crestor 10 mg Tablet] 10 mg PO DAILY 12/26/17 Sertraline HCl [Zoloft 50 mg Tablet] 50 mg PO QAM 12/26/17 Tamsulosin HCl [Flomax 0.4 mg Cap.sr] 0.4 mg PO DAILY 12/26/17 Umeclidinium [place] [Incruse Ellipta] 1 puff IH DAILY 12/26/17 Zolpidem Tartrate [Ambien 5 mg Tablet] 5 mg PO QHS 12/26/17 Fluticasone/Salmeterol [Advair 500-50 Diskus 14 Dose/Diskus] 1 inh IH Q12 #60 inhaler 01/13/18 Insulin Regular, Human [Humulin R (Reg) Insulin 100 unit/mL] 0 - 12 unit SUBCUT Q6HP PRN #1 unit 01/13/18 Mag Hydrox/Al Hydrox/Simeth [Maalox Plus Susp 30 Udcup] 30 ml PO Q6HP PRN #90 udc 01/13/18 History of Present Illness Admission Date/PCP: 12/26/17 21:15 SILVINA KABA MD History of Present Illness: BRYON BONILLA is a 57 year old female This 57-year-old female admitting in the hospital for the respiratory distress sepsis from the urinary tract infections possible pneumonia and patient was intubatedKept in the ICU Hospital Course Hospital Course: This is a 57-year-old female with end-stage COPD pretty much immobile currently live in assisted living facility came to the emergency department with the complaining of shortness of the breath patient was diagnosed with a sepsis possible pneumonia UTI and respiratory distress Patient was intubated in the ER and admitting in the intensive care unit Patient seen by the pulmonary doctor dysuo Patients have a issue with the GI with the ileus and the patient seen by the Dr. Poole And also by the surgery Patient underwent for the endoscopy and colonoscopy no sign of any GI bleed and no other acute finding Patients require IV antibiotic due to the sepsis and infections from the pneumonia and the urinary tract infections Patient's was extubated and transferred to the telemetry floor Patient's otherwise remained stable back to the baseline's patient's 2 L nasal cannula and the patient's abdomen is soft and benign patient's p.o. intake back to the normal normal bowel movement and DC the all antibiotics and the patient' s white count and other blood work is all stable Discussed with the pulmonary and the GI suggest the patient stable enough to go home and discussed with the extensively with the family member including the power of supervisor marble to her sisters and preferred to go to the nursing facilities Patient is usually unable to walk very limited activity significant psych problems including the schizophrenia depressions and anxiety Patient's continues to follow with the psych as an outpatient Patient with significant GI issue several GI workup done recently see a GI at [facility] Patient is currently at back to the baseline as per discussed with the family at this point all answers given to the family and patient's discharge to the rehab facilities Physical Exam Vital Signs: Temp Pulse Resp BP Pulse Ox 98.2 F 82 18 105/57 L 99 01/13/18 04:00 01/13/18 07:00 01/13/18 04:00 01/13/18 04:00 01/13/18 04:00 Intake & Output 01/12/18 01/13/18 01/14/18 06:59 06:59 06:59 Intake Total 220 1706 Output Total 1400 1000 Balance -1180 706 Weight 66.4 kg 66.2 kg General appearance: PRESENT: no acute distress, well-developed, well-nourished Head exam: PRESENT: atraumatic, normocephalic Eye exam: PRESENT: conjunctiva pink, EOMI, PERRLA. ABSENT: scleral icterus Ear exam: PRESENT: normal external ear exam Mouth exam: PRESENT: moist, tongue midline Neck exam: ABSENT: carotid bruit, JVD, lymphadenopathy, thyromegaly Respiratory exam: PRESENT: clear to auscultation wilfredo. ABSENT: rales, rhonchi, wheezes Cardiovascular exam: PRESENT: RRR. ABSENT: diastolic murmur, rubs, systolic murmur Pulses: PRESENT: normal dorsalis pedis pul Vascular exam: PRESENT: normal capillary refill GI/Abdominal exam: PRESENT: normal bowel sounds, soft. ABSENT: distended, guarding, mass, organolmegaly, rebound, tenderness Rectal exam: PRESENT: deferred Extremities exam: PRESENT: full ROM. ABSENT: calf tenderness, clubbing, pedal edema Neurological exam: PRESENT: alert, awake, oriented to person, oriented to place , oriented to time, oriented to situation, CN II-XII grossly intact. ABSENT: motor sensory deficit Psychiatric exam: PRESENT: appropriate affect, normal mood. ABSENT: homicidal ideation, suicidal ideation Skin exam: PRESENT: dry, intact, warm. ABSENT: cyanosis, rash Results Laboratory Results: 01/11/18 05:45 01/13/18 05:11 01/13/18 05:11 Sodium 137.2 Potassium 4.2 Chloride 92 L Carbon Dioxide 39 H Anion Gap 6 BUN 12 Creatinine 0.47 L Est GFR ( Amer) > 60 Est GFR (Non-Af Amer) > 60 Glucose 87 Calcium 9.0 12/27/17 12/27/17 12/27/17 00:40 00:40 06:30 Creatine Kinase 36 26 L CK-MB (CK-2) 1.99 Troponin I < 0.012 12/27/17 12/27/17 12/27/17 06:30 12:35 12:35 Creatine Kinase 49 CK-MB (CK-2) 0.81 0.50 Troponin I < 0.012 < 0.012 Impressions: Small Bowel X-Ray 01/03/18 00:00 IMPRESSION: Partial small bowel obstruction with transition point in the deep midline pelvis Chest X-Ray 01/03/18 05:00 IMPRESSION: 1. No evidence of acute intrathoracic disease or significant change since the prior study. 2. Grossly stable life support lines and tubes. Abdomen/Pelvis CT 01/04/18 04:00 IMPRESSION: 1. Since the prior study on 01/02/2018 ,there has been overall decrease in generalized mall bowel distention particularly distally. There is now contrast throughout the colon to the rectum. The findings are most consistent with resolving generalized ileus and/or partial obstruction. 2. Mild ectasia of renal upper collecting systems and renal pelvii again noted unchanged. 3. Interval resolution of pelvic ascites. Persistent soft tissue anasarca. 4. Chronic bibasilar interstitial change and pleural thickening. KUB X-Ray 01/10/18 00:00 IMPRESSION: There may be some degree of ileus. No acute or new findings in the abdomen. Transfer Plan - Time Spent with Patient Time spent with patient: Greater than 30 Minutes Qualifiers - * PATIENT BEING DISCHARGED WITH ANY OF THE FOLLOWING DIAGNOSIS: No VTE patient discharged on overlapping Therapy?: Yes Plan Time Spent: Greater than 30 Minutes - Check a CBC and Chem-7 in 1 week Follow with the pulmonary and GI as an outpatient Get the physical therapy Follow Daya stewart as outpatient
[2018-01-13] MEDS: SERTRALINE HCL 50 MG TABLET PO SCH (08:34)
[2018-01-13] MEDS: QUETIAPINE FUMARATE 100 MG TABLET PO SCH ×3 (08:35→21:53)
[2018-01-13] MEDS: ACETAMINOPHEN 325 MG TABLET PO PRN (08:44)
[2018-01-13] MEDS: ENOXAPARIN SODIUM INJ 40 MG/0.4 ML DISP.SYRIN SUBCUT SCH (10:06)
[2018-01-13] MEDS: ROFLUMILAST 500 MCG TABLET PO SCH (10:07)
[2018-01-13] MEDS: FLUTICASONE/SALMETEROL DISKUS 500-50 MCG/DOSE IH SCH ×2 (10:07→21:53)
[2018-01-13] MEDS: DOCUSATE SODIUM 100 MG CAPSULE PO SCH ×2 (10:07→17:46)
[2018-01-13] MEDS: NYSTATIN CREAM 15 GM TP SCH ×2 (10:23→17:01)
[2018-01-13] MEDS: METHYLPREDNISOLONE INJ 40 MG/1 ML SDV IV SCH (10:25)
[2018-01-13] MEDS: MAG HYDROX/AL HYDROX/SIMETH SUSP 30 ML UDCUP PO PRN (14:41)
[2018-01-14] MEDS: IPRATROPIUM/ALBUTEROL 0.5-2.5 MG/3 ML AMPUL NEB SCH ×5 (04:01→20:07)
[2018-01-14] MEDS: ONDANSETRON 4 MG TAB.RAPDIS PO PRN ×2 (05:03→12:44)
[2018-01-14] MEDS: LANSOPRAZOLE 30 MG TAB.RAP.DR PO SCH ×2 (05:04→17:55)
[2018-01-14] MEDS: LORAZEPAM 1 MG TABLET PO PRN ×3 (05:04→21:38)
[2018-01-14] MEDS: LEVOTHYROXINE SODIUM 0.025 MG TABLET PO SCH (05:04)
[2018-01-14] MEDS: SERTRALINE HCL 50 MG TABLET PO SCH (09:16)
[2018-01-14] MEDS: METHYLPREDNISOLONE INJ 40 MG/1 ML SDV IV SCH (09:16)
[2018-01-14] MEDS: NYSTATIN CREAM 15 GM TP SCH ×2 (09:16→18:20)
[2018-01-14] MEDS: DOCUSATE SODIUM 100 MG CAPSULE PO SCH ×2 (09:16→18:33)
[2018-01-14] MEDS: ENOXAPARIN SODIUM INJ 40 MG/0.4 ML DISP.SYRIN SUBCUT SCH (09:16)
[2018-01-14] MEDS: ROFLUMILAST 500 MCG TABLET PO SCH (09:17)
[2018-01-14] MEDS: QUETIAPINE FUMARATE 100 MG TABLET PO SCH ×3 (09:17→21:35)
[2018-01-14] MEDS: FLUTICASONE/SALMETEROL DISKUS 500-50 MCG/DOSE IH SCH ×2 (09:19→21:34)
--- NOTE | 2018-01-14 09:40 | PDOC PROGRESS REPORT ---
Subjective Progress Note for:: 01/14/18 Subjective:: Patient is currently doing well underwent for the colonoscopy and according to the GI all stable Patient is complaining some mild discomfort in the right side of the abdomen but no nausea no vomiting in p.o. intake is good As per discussed with the pulmonary and suggest continues to current nebulizer treatments no need for any further antibiotic Patient is currently living at [facility] but not sure with the family sent to the nursing facility versus assisted living Patient had end-stage COPD and patients pretty much immobile Reason For Visit: ACUTE RESPIRATORY FAILURE,UTI,SEPSIS Physical Exam Vital Signs: Temp Pulse Resp BP Pulse Ox 98.4 F 98 23 H 120/58 L 100 01/13/18 19:47 01/14/18 08:19 01/14/18 08:19 01/13/18 19:47 01/14/18 08:19 Intake & Output 01/13/18 01/14/18 01/15/18 06:59 06:59 06:59 Intake Total 1706 1228 Output Total 1000 350 Balance 706 878 Weight 66.2 kg 59.8 kg General appearance: PRESENT: no acute distress, well-developed, well-nourished Head exam: PRESENT: atraumatic, normocephalic Eye exam: PRESENT: conjunctiva pink, EOMI, PERRLA. ABSENT: scleral icterus Ear exam: PRESENT: normal external ear exam Mouth exam: PRESENT: moist, tongue midline Neck exam: PRESENT: full ROM. ABSENT: carotid bruit, JVD, lymphadenopathy, thyromegaly Respiratory exam: PRESENT: clear to auscultation wilfredo Cardiovascular exam: PRESENT: RRR. ABSENT: diastolic murmur, rubs, systolic murmur Pulses: PRESENT: normal dorsalis pedis pul, +2 pedal pulses bilateral Vascular exam: PRESENT: normal capillary refill GI/Abdominal exam: PRESENT: normal bowel sounds, soft. ABSENT: distended, guarding, mass, organolmegaly, rebound, tenderness Rectal exam: PRESENT: deferred Neurological exam: PRESENT: alert, awake, oriented to person, oriented to place , oriented to time, oriented to situation, CN II-XII grossly intact. ABSENT: motor sensory deficit Psychiatric exam: PRESENT: appropriate affect, normal mood. ABSENT: homicidal ideation, suicidal ideation Skin exam: PRESENT: dry, intact, warm. ABSENT: cyanosis, rash Results Laboratory Results: 01/11/18 05:45 01/13/18 05:11 12/27/17 12/27/17 12/27/17 00:40 00:40 06:30 Creatine Kinase 36 26 L CK-MB (CK-2) 1.99 Troponin I < 0.012 12/27/17 12/27/17 12/27/17 06:30 12:35 12:35 Creatine Kinase 49 CK-MB (CK-2) 0.81 0.50 Troponin I < 0.012 < 0.012 Impressions: Small Bowel X-Ray 01/03/18 00:00 IMPRESSION: Partial small bowel obstruction with transition point in the deep midline pelvis Chest X-Ray 01/03/18 05:00 IMPRESSION: 1. No evidence of acute intrathoracic disease or significant change since the prior study. 2. Grossly stable life support lines and tubes. Abdomen/Pelvis CT 01/04/18 04:00 IMPRESSION: 1. Since the prior study on 01/02/2018 ,there has been overall decrease in generalized mall bowel distention particularly distally. There is now contrast throughout the colon to the rectum. The findings are most consistent with resolving generalized ileus and/or partial obstruction. 2. Mild ectasia of renal upper collecting systems and renal pelvii again noted unchanged. 3. Interval resolution of pelvic ascites. Persistent soft tissue anasarca. 4. Chronic bibasilar interstitial change and pleural thickening. KUB X-Ray 01/10/18 00:00 IMPRESSION: There may be some degree of ileus. No acute or new findings in the abdomen. Assessment & Plan - Diagnosis (1) Acute respiratory failure Qualifiers: Respiratory failure complication: hypoxia Qualified Code(s): J96.01 - Acute respiratory failure with hypoxia Is this a current diagnosis for this admission?: Yes Plan: Currently all resolved (2) Urinary tract infection Qualifiers: Urinary tract infection type: site unspecified Is this a current diagnosis for this admission?: Yes Plan: Currently all resolved (3) Depression Qualifiers: Depression Type: major depressive disorder Is this a current diagnosis for this admission?: Yes Plan: Patients follow with the psych (4) COPD exacerbation Is this a current diagnosis for this admission?: Yes Plan: Currently all getting better (5) Diabetes Qualifiers: Diabetes mellitus type: type 2 Is this a current diagnosis for this admission?: Yes Plan: Continues to sliding-scale (6) Generalized anxiety disorder Is this a current diagnosis for this admission?: Yes Plan: Once the patient extubated will restart the patient's psych medications (7) Hypertension Qualifiers: Hypertension type: essential hypertension Is this a current diagnosis for this admission?: Yes Plan: Currently all stable (8) Gastroesophageal reflux disease Qualifiers: Esophagitis presence: without esophagitis Qualified Code(s): K21.9 - Gastro -esophageal reflux disease without esophagitis Is this a current diagnosis for this admission?: Yes Plan: Continues to Protonix (9) Anemia Qualifiers: Anemia type: iron deficiency Is this a current diagnosis for this admission?: Yes Plan: Status post blood transfusion and colonoscopy is all stable (10) Ileus Is this a current diagnosis for this admission?: Yes - Time Time Spent with patient: 15-24 minutes Medications reviewed and adjusted accordingly: Yes Anticipated discharge: SNF Within: when bed available - Inpatient Certification Medical Necessity: Need Close Monitoring Due to Risk of Patient Decompensation Post Hospital Care: D/C Surgery Aide Documentation - Plan Summary Plan Summary: Continues to current medications patients waiting for the bed
[2018-01-14] MEDS: MAG HYDROX/AL HYDROX/SIMETH SUSP 30 ML UDCUP PO PRN (14:16)
[2018-01-14] MEDS: ACETAMINOPHEN 325 MG TABLET PO PRN (14:16)
[2018-01-14] MEDS: ONDANSETRON HCL INJ/PF 4 MG/2 ML SDV IV PRN (21:38)
[2018-01-15] MEDS: IPRATROPIUM/ALBUTEROL 0.5-2.5 MG/3 ML AMPUL NEB SCH ×7 (00:08→23:27)
[2018-01-15] MEDS: LANSOPRAZOLE 30 MG TAB.RAP.DR PO SCH ×2 (06:27→17:41)
[2018-01-15] MEDS: LEVOTHYROXINE SODIUM 0.025 MG TABLET PO SCH (06:27)
[2018-01-15] MEDS: QUETIAPINE FUMARATE 100 MG TABLET PO SCH ×3 (08:45→21:30)
[2018-01-15] MEDS: SERTRALINE HCL 50 MG TABLET PO SCH (08:45)
[2018-01-15] MEDS: ONDANSETRON 4 MG TAB.RAPDIS PO PRN ×3 (09:00→21:30)
[2018-01-15] MEDS: LORAZEPAM 1 MG TABLET PO PRN ×3 (09:00→21:30)
[2018-01-15] MEDS: METHYLPREDNISOLONE INJ 40 MG/1 ML SDV IV SCH (09:28)
[2018-01-15] MEDS: DOCUSATE SODIUM 100 MG CAPSULE PO SCH ×2 (09:29→17:41)
[2018-01-15] MEDS: FLUTICASONE/SALMETEROL DISKUS 500-50 MCG/DOSE IH SCH ×2 (09:29→21:29)
[2018-01-15] MEDS: ROFLUMILAST 500 MCG TABLET PO SCH (09:29)
[2018-01-15] MEDS: NYSTATIN CREAM 15 GM TP SCH ×2 (09:30→21:23)
[2018-01-15] MEDS: ENOXAPARIN SODIUM INJ 40 MG/0.4 ML DISP.SYRIN SUBCUT SCH (09:33)
[2018-01-15] MEDS: ACETAMINOPHEN 325 MG TABLET PO PRN (16:31)
[2018-01-16] MEDS: IPRATROPIUM/ALBUTEROL 0.5-2.5 MG/3 ML AMPUL NEB SCH ×5 (04:04→19:35)
[2018-01-16] MEDS: LANSOPRAZOLE 30 MG TAB.RAP.DR PO SCH ×2 (05:34→17:48)
[2018-01-16] MEDS: LEVOTHYROXINE SODIUM 0.025 MG TABLET PO SCH (05:34)
[2018-01-16] MEDS: LORAZEPAM 1 MG TABLET PO PRN ×3 (07:55→22:21)
[2018-01-16] MEDS: SERTRALINE HCL 50 MG TABLET PO SCH (07:56)
[2018-01-16] MEDS: ACETAMINOPHEN 325 MG TABLET PO PRN ×2 (07:56→15:05)
[2018-01-16] MEDS: QUETIAPINE FUMARATE 100 MG TABLET PO SCH ×3 (11:06→22:20)
[2018-01-16] MEDS: DOCUSATE SODIUM 100 MG CAPSULE PO SCH ×2 (11:08→17:48)
[2018-01-16] MEDS: FLUTICASONE/SALMETEROL DISKUS 500-50 MCG/DOSE IH SCH ×2 (11:08→22:19)
[2018-01-16] MEDS: ROFLUMILAST 500 MCG TABLET PO SCH (11:09)
[2018-01-16] MEDS: ENOXAPARIN SODIUM INJ 40 MG/0.4 ML DISP.SYRIN SUBCUT SCH (11:09)
[2018-01-16] MEDS: NYSTATIN CREAM 15 GM TP SCH ×2 (11:10→17:49)
[2018-01-16] MEDS: METHYLPREDNISOLONE INJ 40 MG/1 ML SDV IV SCH (11:10)
--- NOTE | 2018-01-16 16:34 | PDOC PROGRESS REPORT ---
Subjective Progress Note for:: 01/16/18 Subjective:: Patient is currently doing well Waiting for the transferred to the nursing facilities New concerns no new complaints Reason For Visit: ACUTE RESPIRATORY FAILURE,UTI,SEPSIS Physical Exam Vital Signs: Temp Pulse Resp BP Pulse Ox 98.5 F 84 18 91/75 L 100 01/16/18 11:41 01/16/18 15:55 01/16/18 15:55 01/16/18 11:41 01/16/18 15:55 Intake & Output 01/15/18 01/16/18 01/17/18 06:59 06:59 06:59 Intake Total 1941 1064 Balance 194 1064 Weight 59.8 kg 66.3 kg General appearance: PRESENT: no acute distress, well-developed, well-nourished Head exam: PRESENT: atraumatic, normocephalic Eye exam: PRESENT: conjunctiva pink, EOMI, PERRLA. ABSENT: scleral icterus Ear exam: PRESENT: normal external ear exam Mouth exam: PRESENT: moist, tongue midline Neck exam: PRESENT: full ROM. ABSENT: carotid bruit, JVD, lymphadenopathy, thyromegaly Respiratory exam: PRESENT: clear to auscultation wilfredo Cardiovascular exam: PRESENT: RRR. ABSENT: diastolic murmur, rubs, systolic murmur Pulses: PRESENT: normal dorsalis pedis pul, +2 pedal pulses bilateral Vascular exam: PRESENT: normal capillary refill GI/Abdominal exam: PRESENT: normal bowel sounds, soft. ABSENT: distended, guarding, mass, organolmegaly, rebound, tenderness Rectal exam: PRESENT: deferred Extremities exam: ABSENT: pedal edema Neurological exam: PRESENT: alert, awake, oriented to person, oriented to place , oriented to time, oriented to situation, CN II-XII grossly intact. ABSENT: motor sensory deficit Psychiatric exam: PRESENT: appropriate affect, normal mood. ABSENT: homicidal ideation, suicidal ideation Skin exam: PRESENT: dry, intact, warm. ABSENT: cyanosis, rash Results Laboratory Results: 01/11/18 05:45 01/13/18 05:11 12/27/17 12/27/17 12/27/17 00:40 00:40 06:30 Creatine Kinase 36 26 L CK-MB (CK-2) 1.99 Troponin I < 0.012 12/27/17 12/27/17 12/27/17 06:30 12:35 12:35 Creatine Kinase 49 CK-MB (CK-2) 0.81 0.50 Troponin I < 0.012 < 0.012 Impressions: Small Bowel X-Ray 01/03/18 00:00 IMPRESSION: Partial small bowel obstruction with transition point in the deep midline pelvis Chest X-Ray 01/03/18 05:00 IMPRESSION: 1. No evidence of acute intrathoracic disease or significant change since the prior study. 2. Grossly stable life support lines and tubes. Abdomen/Pelvis CT 01/04/18 04:00 IMPRESSION: 1. Since the prior study on 01/02/2018 ,there has been overall decrease in generalized mall bowel distention particularly distally. There is now contrast throughout the colon to the rectum. The findings are most consistent with resolving generalized ileus and/or partial obstruction. 2. Mild ectasia of renal upper collecting systems and renal pelvii again noted unchanged. 3. Interval resolution of pelvic ascites. Persistent soft tissue anasarca. 4. Chronic bibasilar interstitial change and pleural thickening. KUB X-Ray 01/10/18 00:00 IMPRESSION: There may be some degree of ileus. No acute or new findings in the abdomen. Assessment & Plan - Diagnosis (1) Acute respiratory failure Qualifiers: Respiratory failure complication: hypoxia Qualified Code(s): J96.01 - Acute respiratory failure with hypoxia Is this a current diagnosis for this admission?: Yes Plan: Currently all resolved (2) Urinary tract infection Qualifiers: Urinary tract infection type: site unspecified Is this a current diagnosis for this admission?: Yes Plan: Currently all resolved (3) Depression Qualifiers: Depression Type: major depressive disorder Is this a current diagnosis for this admission?: Yes Plan: Patients follow with the psych (4) COPD exacerbation Is this a current diagnosis for this admission?: Yes Plan: Currently all getting better (5) Diabetes Qualifiers: Diabetes mellitus type: type 2 Is this a current diagnosis for this admission?: Yes Plan: Continues to sliding-scale (6) Generalized anxiety disorder Is this a current diagnosis for this admission?: Yes Plan: Once the patient extubated will restart the patient's psych medications (7) Hypertension Qualifiers: Hypertension type: essential hypertension Is this a current diagnosis for this admission?: Yes Plan: Currently all stable (8) Gastroesophageal reflux disease Qualifiers: Esophagitis presence: without esophagitis Qualified Code(s): K21.9 - Gastro -esophageal reflux disease without esophagitis Is this a current diagnosis for this admission?: Yes Plan: Continues to Protonix (9) Anemia Qualifiers: Anemia type: iron deficiency Is this a current diagnosis for this admission?: Yes Plan: Status post blood transfusion and colonoscopy is all stable (10) Ileus Is this a current diagnosis for this admission?: Yes - Time Time Spent with patient: 15-24 minutes Medications reviewed and adjusted accordingly: Yes Anticipated discharge: SNF Within: when bed available - Inpatient Certification Medical Necessity: Need Close Monitoring Due to Risk of Patient Decompensation Post Hospital Care: D/C [employer]inder Documentation - Plan Summary Plan Summary: Continues current medication
[2018-01-16] MEDS: GABAPENTIN 100 MG CAPSULE PO SCH (22:19)
[2018-01-16] MEDS: DICYCLOMINE HCL 10 MG CAPSULE PO SCH (22:20)
[2018-01-17] MEDS: IPRATROPIUM/ALBUTEROL 0.5-2.5 MG/3 ML AMPUL NEB SCH ×6 (00:09→19:49)
[2018-01-17] MEDS: LANSOPRAZOLE 30 MG TAB.RAP.DR PO SCH ×2 (06:34→18:45)
[2018-01-17] MEDS: LEVOTHYROXINE SODIUM 0.025 MG TABLET PO SCH (06:35)
[2018-01-17] MEDS: DICYCLOMINE HCL 10 MG CAPSULE PO SCH ×3 (06:35→22:22)
[2018-01-17] MEDS: GABAPENTIN 100 MG CAPSULE PO SCH ×3 (06:35→22:22)
[2018-01-17] MEDS: FLUTICASONE/SALMETEROL DISKUS 500-50 MCG/DOSE IH SCH ×2 (09:44→22:22)
[2018-01-17] MEDS: TAMSULOSIN HCL 0.4 MG CAP.SR.24H PO SCH (09:45)
[2018-01-17] MEDS: METHYLPREDNISOLONE INJ 40 MG/1 ML SDV IV SCH (09:46)
[2018-01-17] MEDS: SERTRALINE HCL 50 MG TABLET PO SCH (09:46)
[2018-01-17] MEDS: ROFLUMILAST 500 MCG TABLET PO SCH (09:46)
[2018-01-17] MEDS: ENOXAPARIN SODIUM INJ 40 MG/0.4 ML DISP.SYRIN SUBCUT SCH (09:47)
[2018-01-17] MEDS: DOCUSATE SODIUM 100 MG CAPSULE PO SCH ×2 (09:47→18:45)
[2018-01-17] MEDS: QUETIAPINE FUMARATE 100 MG TABLET PO SCH ×3 (09:48→22:22)
[2018-01-17] MEDS: NYSTATIN CREAM 15 GM TP SCH ×2 (10:17→18:46)
--- NOTE | 2018-01-17 13:05 | PDOC PROGRESS REPORT ---
Subjective Progress Note for:: 01/17/18 Subjective:: pt is currently doing fair Patient's denied any chest pain denied any shortness of the breath Mild chest congestion's Reason For Visit: ACUTE RESPIRATORY FAILURE,UTI,SEPSIS Physical Exam Vital Signs: Temp Pulse Resp BP Pulse Ox 97.8 F 62 16 108/59 L 100 01/17/18 07:52 01/17/18 11:34 01/17/18 11:34 01/17/18 07:52 01/17/18 11:34 Intake & Output 01/16/18 01/17/18 01/18/18 06:59 06:59 06:59 Intake Total 1064 1436 Balance 1064 1436 Weight 66.3 kg 66.3 kg General appearance: PRESENT: no acute distress, well-developed, well-nourished Head exam: PRESENT: atraumatic, normocephalic Eye exam: PRESENT: conjunctiva pink, EOMI, PERRLA. ABSENT: scleral icterus Ear exam: PRESENT: normal external ear exam Mouth exam: PRESENT: moist, tongue midline Neck exam: PRESENT: full ROM. ABSENT: carotid bruit, JVD, lymphadenopathy, thyromegaly Respiratory exam: PRESENT: clear to auscultation wilfredo Cardiovascular exam: PRESENT: RRR. ABSENT: diastolic murmur, rubs, systolic murmur Pulses: PRESENT: normal dorsalis pedis pul, +2 pedal pulses bilateral Vascular exam: PRESENT: normal capillary refill GI/Abdominal exam: PRESENT: normal bowel sounds, soft. ABSENT: distended, guarding, mass, organolmegaly, rebound, tenderness Rectal exam: PRESENT: deferred Extremities exam: ABSENT: pedal edema Neurological exam: PRESENT: alert, awake, oriented to person, oriented to place , oriented to time, oriented to situation, CN II-XII grossly intact. ABSENT: motor sensory deficit Psychiatric exam: PRESENT: appropriate affect, normal mood. ABSENT: homicidal ideation, suicidal ideation Skin exam: PRESENT: dry, intact, warm. ABSENT: cyanosis, rash Results Laboratory Results: 01/11/18 05:45 01/13/18 05:11 12/27/17 12/27/17 12/27/17 00:40 00:40 06:30 Creatine Kinase 36 26 L CK-MB (CK-2) 1.99 Troponin I < 0.012 12/27/17 12/27/17 12/27/17 06:30 12:35 12:35 Creatine Kinase 49 CK-MB (CK-2) 0.81 0.50 Troponin I < 0.012 < 0.012 Impressions: Small Bowel X-Ray 01/03/18 00:00 IMPRESSION: Partial small bowel obstruction with transition point in the deep midline pelvis Chest X-Ray 01/03/18 05:00 IMPRESSION: 1. No evidence of acute intrathoracic disease or significant change since the prior study. 2. Grossly stable life support lines and tubes. Abdomen/Pelvis CT 01/04/18 04:00 IMPRESSION: 1. Since the prior study on 01/02/2018 ,there has been overall decrease in generalized mall bowel distention particularly distally. There is now contrast throughout the colon to the rectum. The findings are most consistent with resolving generalized ileus and/or partial obstruction. 2. Mild ectasia of renal upper collecting systems and renal pelvii again noted unchanged. 3. Interval resolution of pelvic ascites. Persistent soft tissue anasarca. 4. Chronic bibasilar interstitial change and pleural thickening. KUB X-Ray 01/10/18 00:00 IMPRESSION: There may be some degree of ileus. No acute or new findings in the abdomen. Assessment & Plan - Diagnosis (1) Acute respiratory failure Qualifiers: Respiratory failure complication: hypoxia Qualified Code(s): J96.01 - Acute respiratory failure with hypoxia Is this a current diagnosis for this admission?: Yes Plan: Currently all resolved (2) Urinary tract infection Qualifiers: Urinary tract infection type: site unspecified Is this a current diagnosis for this admission?: Yes Plan: Currently all resolved (3) Depression Qualifiers: Depression Type: major depressive disorder Is this a current diagnosis for this admission?: Yes Plan: Patients follow with the psych (4) COPD exacerbation Is this a current diagnosis for this admission?: Yes Plan: Currently all getting better (5) Diabetes Qualifiers: Diabetes mellitus type: type 2 Is this a current diagnosis for this admission?: Yes Plan: Continues to sliding-scale (6) Generalized anxiety disorder Is this a current diagnosis for this admission?: Yes Plan: Once the patient extubated will restart the patient's psych medications (7) Hypertension Qualifiers: Hypertension type: essential hypertension Is this a current diagnosis for this admission?: Yes Plan: Currently all stable (8) Gastroesophageal reflux disease Qualifiers: Esophagitis presence: without esophagitis Qualified Code(s): K21.9 - Gastro -esophageal reflux disease without esophagitis Is this a current diagnosis for this admission?: Yes Plan: Continues to Protonix (9) Anemia Qualifiers: Anemia type: iron deficiency Is this a current diagnosis for this admission?: Yes Plan: Status post blood transfusion and colonoscopy is all stable (10) Ileus Is this a current diagnosis for this admission?: Yes Plan: Currently all resolved - Time Time Spent with patient: 15-24 minutes Medications reviewed and adjusted accordingly: Yes Anticipated discharge: Other Within: Other - Inpatient Certification Medical Necessity: Need Close Monitoring Due to Risk of Patient Decompensation Post Hospital Care: D/C Avionics Repair Technician Documentation - Plan Summary Plan Summary: Continues to current medications waiting for the bed
[2018-01-17] MEDS: LORAZEPAM 1 MG TABLET PO PRN (13:12)
[2018-01-17] MEDS: ACETAMINOPHEN 325 MG TABLET PO PRN (18:45)
[2018-01-18] MEDS: IPRATROPIUM/ALBUTEROL 0.5-2.5 MG/3 ML AMPUL NEB SCH ×6 (00:10→19:51)
[2018-01-18] MEDS: LEVOTHYROXINE SODIUM 0.025 MG TABLET PO SCH (05:49)
[2018-01-18] MEDS: GABAPENTIN 100 MG CAPSULE PO SCH ×3 (05:49→21:52)
[2018-01-18] MEDS: LANSOPRAZOLE 30 MG TAB.RAP.DR PO SCH ×2 (05:49→17:33)
[2018-01-18] MEDS: DICYCLOMINE HCL 10 MG CAPSULE PO SCH ×3 (05:49→21:51)
[2018-01-18] MEDS: ENOXAPARIN SODIUM INJ 40 MG/0.4 ML DISP.SYRIN SUBCUT SCH (10:04)
[2018-01-18] MEDS: METHYLPREDNISOLONE INJ 40 MG/1 ML SDV IV SCH (10:05)
[2018-01-18] MEDS: TAMSULOSIN HCL 0.4 MG CAP.SR.24H PO SCH (10:05)
[2018-01-18] MEDS: ROFLUMILAST 500 MCG TABLET PO SCH (10:06)
[2018-01-18] MEDS: SERTRALINE HCL 50 MG TABLET PO SCH (10:06)
[2018-01-18] MEDS: FLUTICASONE/SALMETEROL DISKUS 500-50 MCG/DOSE IH SCH ×2 (10:06→21:51)
[2018-01-18] MEDS: DOCUSATE SODIUM 100 MG CAPSULE PO SCH ×2 (10:06→17:34)
[2018-01-18] MEDS: NYSTATIN CREAM 15 GM TP SCH ×2 (10:07→18:46)
[2018-01-18] MEDS: QUETIAPINE FUMARATE 100 MG TABLET PO SCH ×3 (10:07→21:53)
--- NOTE | 2018-01-18 11:13 | PDOC PROGRESS REPORT ---
Subjective Progress Note for:: 01/18/18 Subjective:: pt is currently doing fair Patient's denied any chest pain denied any shortness of the breath Mild chest congestion's Reason For Visit: ACUTE RESPIRATORY FAILURE,UTI,SEPSIS Physical Exam Vital Signs: Temp Pulse Resp BP Pulse Ox 98.3 F 95 20 110/65 100 01/18/18 07:34 01/18/18 07:34 01/18/18 07:34 01/18/18 07:34 01/18/18 07:34 Intake & Output 01/17/18 01/18/18 01/19/18 06:59 06:59 06:59 Intake Total 1436 2190 Balance 1436 2190 Weight 66.3 kg General appearance: PRESENT: no acute distress, well-developed, well-nourished Head exam: PRESENT: atraumatic, normocephalic Eye exam: PRESENT: conjunctiva pink, EOMI, PERRLA. ABSENT: scleral icterus Ear exam: PRESENT: normal external ear exam Mouth exam: PRESENT: moist, tongue midline Neck exam: PRESENT: full ROM. ABSENT: carotid bruit, JVD, lymphadenopathy, thyromegaly Respiratory exam: PRESENT: clear to auscultation wilfredo Cardiovascular exam: PRESENT: RRR. ABSENT: diastolic murmur, rubs, systolic murmur Pulses: PRESENT: normal dorsalis pedis pul, +2 pedal pulses bilateral Vascular exam: PRESENT: normal capillary refill GI/Abdominal exam: PRESENT: normal bowel sounds, soft. ABSENT: distended, guarding, mass, organolmegaly, rebound, tenderness Rectal exam: PRESENT: deferred Neurological exam: PRESENT: alert, awake, oriented to person, oriented to place , oriented to time, oriented to situation, CN II-XII grossly intact. ABSENT: motor sensory deficit Psychiatric exam: PRESENT: appropriate affect, normal mood. ABSENT: homicidal ideation, suicidal ideation Skin exam: PRESENT: dry, intact, warm. ABSENT: cyanosis, rash Results Laboratory Results: 01/11/18 05:45 01/13/18 05:11 12/27/17 12/27/17 12/27/17 00:40 00:40 06:30 Creatine Kinase 36 26 L CK-MB (CK-2) 1.99 Troponin I < 0.012 12/27/17 12/27/17 12/27/17 06:30 12:35 12:35 Creatine Kinase 49 CK-MB (CK-2) 0.81 0.50 Troponin I < 0.012 < 0.012 Impressions: Small Bowel X-Ray 01/03/18 00:00 IMPRESSION: Partial small bowel obstruction with transition point in the deep midline pelvis Chest X-Ray 01/03/18 05:00 IMPRESSION: 1. No evidence of acute intrathoracic disease or significant change since the prior study. 2. Grossly stable life support lines and tubes. Abdomen/Pelvis CT 01/04/18 04:00 IMPRESSION: 1. Since the prior study on 01/02/2018 ,there has been overall decrease in generalized mall bowel distention particularly distally. There is now contrast throughout the colon to the rectum. The findings are most consistent with resolving generalized ileus and/or partial obstruction. 2. Mild ectasia of renal upper collecting systems and renal pelvii again noted unchanged. 3. Interval resolution of pelvic ascites. Persistent soft tissue anasarca. 4. Chronic bibasilar interstitial change and pleural thickening. KUB X-Ray 01/10/18 00:00 IMPRESSION: There may be some degree of ileus. No acute or new findings in the abdomen. Assessment & Plan - Diagnosis (1) Acute respiratory failure Qualifiers: Respiratory failure complication: hypoxia Qualified Code(s): J96.01 - Acute respiratory failure with hypoxia Is this a current diagnosis for this admission?: Yes Plan: Currently all resolved (2) Urinary tract infection Qualifiers: Urinary tract infection type: site unspecified Is this a current diagnosis for this admission?: Yes Plan: Currently all resolved (3) Depression Qualifiers: Depression Type: major depressive disorder Is this a current diagnosis for this admission?: Yes Plan: Patients follow with the psych (4) COPD exacerbation Is this a current diagnosis for this admission?: Yes Plan: Currently all getting better (5) Diabetes Qualifiers: Diabetes mellitus type: type 2 Is this a current diagnosis for this admission?: Yes Plan: Continues to sliding-scale (6) Generalized anxiety disorder Is this a current diagnosis for this admission?: Yes Plan: Once the patient extubated will restart the patient's psych medications (7) Hypertension Qualifiers: Hypertension type: essential hypertension Is this a current diagnosis for this admission?: Yes Plan: Currently all stable (8) Gastroesophageal reflux disease Qualifiers: Esophagitis presence: without esophagitis Qualified Code(s): K21.9 - Gastro -esophageal reflux disease without esophagitis Is this a current diagnosis for this admission?: Yes Plan: Continues to Protonix (9) Anemia Qualifiers: Anemia type: iron deficiency Is this a current diagnosis for this admission?: Yes Plan: Status post blood transfusion and colonoscopy is all stable (10) Ileus Is this a current diagnosis for this admission?: Yes - Time Time Spent with patient: 15-24 minutes Medications reviewed and adjusted accordingly: Yes Anticipated discharge: SNF, Other Within: when bed available, Other - Inpatient Certification Medical Necessity: Need Close Monitoring Due to Risk of Patient Decompensation Post Hospital Care: D/C 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
[2018-01-18] MEDS: LORAZEPAM 1 MG TABLET PO PRN ×2 (12:09→21:53)
[2018-01-18] MEDS: ONDANSETRON 4 MG TAB.RAPDIS PO PRN (14:00)
[2018-01-18] MEDS: ACETAMINOPHEN 325 MG TABLET PO PRN (14:01)
[2018-01-18] MEDS: MAG HYDROX/AL HYDROX/SIMETH SUSP 30 ML UDCUP PO PRN (17:33)
[2018-01-19] MEDS: IPRATROPIUM/ALBUTEROL 0.5-2.5 MG/3 ML AMPUL NEB SCH ×6 (00:02→19:40)
[2018-01-19] MEDS: DICYCLOMINE HCL 10 MG CAPSULE PO SCH ×3 (05:59→21:51)
[2018-01-19] MEDS: LANSOPRAZOLE 30 MG TAB.RAP.DR PO SCH ×2 (06:00→18:20)
[2018-01-19] MEDS: GABAPENTIN 100 MG CAPSULE PO SCH ×3 (06:00→21:51)
[2018-01-19] MEDS: LEVOTHYROXINE SODIUM 0.025 MG TABLET PO SCH (06:00)
[2018-01-19] MEDS: SERTRALINE HCL 50 MG TABLET PO SCH (08:53)
[2018-01-19] MEDS: QUETIAPINE FUMARATE 100 MG TABLET PO SCH ×3 (08:54→21:51)
[2018-01-19] MEDS: ROFLUMILAST 500 MCG TABLET PO SCH (09:45)
[2018-01-19] MEDS: FLUTICASONE/SALMETEROL DISKUS 500-50 MCG/DOSE IH SCH ×2 (09:45→21:51)
[2018-01-19] MEDS: DOCUSATE SODIUM 100 MG CAPSULE PO SCH ×2 (09:45→18:20)
[2018-01-19] MEDS: TAMSULOSIN HCL 0.4 MG CAP.SR.24H PO SCH (09:45)
[2018-01-19] MEDS: ENOXAPARIN SODIUM INJ 40 MG/0.4 ML DISP.SYRIN SUBCUT SCH (09:46)
[2018-01-19] MEDS: NYSTATIN CREAM 15 GM TP SCH ×2 (09:47→18:30)
[2018-01-19] MEDS: METHYLPREDNISOLONE INJ 40 MG/1 ML SDV IV SCH (09:47)
[2018-01-19] MEDS: LORAZEPAM 1 MG TABLET PO PRN (09:53)
--- NOTE | 2018-01-19 11:15 | PDOC PROGRESS REPORT ---
Subjective Progress Note for:: 01/19/18 Subjective:: pt is currently doing fair Patient's denied any chest pain denied any shortness of the breath Mild chest congestion's Reason For Visit: ACUTE RESPIRATORY FAILURE,UTI,SEPSIS Physical Exam Vital Signs: Temp Pulse Resp BP Pulse Ox 98.8 F 89 16 125/49 L 100 01/19/18 07:46 01/19/18 07:46 01/19/18 07:46 01/19/18 07:46 01/19/18 07:46 Intake & Output 01/18/18 01/19/18 01/20/18 06:59 06:59 06:59 Intake Total 2190 1512 Output Total 100 Balance 2190 1412 Weight 66.2 kg General appearance: PRESENT: no acute distress, well-developed, well-nourished Head exam: PRESENT: atraumatic, normocephalic Eye exam: PRESENT: conjunctiva pink, EOMI, PERRLA. ABSENT: scleral icterus Ear exam: PRESENT: normal external ear exam Mouth exam: PRESENT: moist, tongue midline Neck exam: PRESENT: full ROM. ABSENT: carotid bruit, JVD, lymphadenopathy, thyromegaly Respiratory exam: PRESENT: clear to auscultation wilfredo Cardiovascular exam: PRESENT: RRR. ABSENT: diastolic murmur, rubs, systolic murmur Pulses: PRESENT: normal dorsalis pedis pul, +2 pedal pulses bilateral Vascular exam: PRESENT: normal capillary refill GI/Abdominal exam: PRESENT: normal bowel sounds, soft. ABSENT: distended, guarding, mass, organolmegaly, rebound, tenderness Rectal exam: PRESENT: deferred Extremities exam: ABSENT: pedal edema Neurological exam: PRESENT: alert, awake, oriented to person, oriented to place , oriented to time, oriented to situation, CN II-XII grossly intact. ABSENT: motor sensory deficit Psychiatric exam: PRESENT: appropriate affect, normal mood. ABSENT: homicidal ideation, suicidal ideation Skin exam: PRESENT: dry, intact, warm. ABSENT: cyanosis, rash Results Laboratory Results: 01/11/18 05:45 01/13/18 05:11 12/27/17 12/27/17 12/27/17 00:40 00:40 06:30 Creatine Kinase 36 26 L CK-MB (CK-2) 1.99 Troponin I < 0.012 12/27/17 12/27/17 12/27/17 06:30 12:35 12:35 Creatine Kinase 49 CK-MB (CK-2) 0.81 0.50 Troponin I < 0.012 < 0.012 Impressions: Small Bowel X-Ray 01/03/18 00:00 IMPRESSION: Partial small bowel obstruction with transition point in the deep midline pelvis Chest X-Ray 01/03/18 05:00 IMPRESSION: 1. No evidence of acute intrathoracic disease or significant change since the prior study. 2. Grossly stable life support lines and tubes. Abdomen/Pelvis CT 01/04/18 04:00 IMPRESSION: 1. Since the prior study on 01/02/2018 ,there has been overall decrease in generalized mall bowel distention particularly distally. There is now contrast throughout the colon to the rectum. The findings are most consistent with resolving generalized ileus and/or partial obstruction. 2. Mild ectasia of renal upper collecting systems and renal pelvii again noted unchanged. 3. Interval resolution of pelvic ascites. Persistent soft tissue anasarca. 4. Chronic bibasilar interstitial change and pleural thickening. KUB X-Ray 01/10/18 00:00 IMPRESSION: There may be some degree of ileus. No acute or new findings in the abdomen. Assessment & Plan - Diagnosis (1) Acute respiratory failure Qualifiers: Respiratory failure complication: hypoxia Qualified Code(s): J96.01 - Acute respiratory failure with hypoxia Is this a current diagnosis for this admission?: Yes Plan: Currently all resolved (2) Urinary tract infection Qualifiers: Urinary tract infection type: site unspecified Is this a current diagnosis for this admission?: Yes Plan: Currently all resolved (3) Depression Qualifiers: Depression Type: major depressive disorder Is this a current diagnosis for this admission?: Yes Plan: Patients follow with the psych (4) COPD exacerbation Is this a current diagnosis for this admission?: Yes Plan: Currently all getting better (5) Diabetes Qualifiers: Diabetes mellitus type: type 2 Is this a current diagnosis for this admission?: Yes Plan: Continues to sliding-scale (6) Generalized anxiety disorder Is this a current diagnosis for this admission?: Yes Plan: Once the patient extubated will restart the patient's psych medications (7) Hypertension Qualifiers: Hypertension type: essential hypertension Is this a current diagnosis for this admission?: Yes Plan: Currently all stable (8) Gastroesophageal reflux disease Qualifiers: Esophagitis presence: without esophagitis Qualified Code(s): K21.9 - Gastro -esophageal reflux disease without esophagitis Is this a current diagnosis for this admission?: Yes Plan: Continues to Protonix (9) Anemia Qualifiers: Anemia type: iron deficiency Is this a current diagnosis for this admission?: Yes Plan: Status post blood transfusion and colonoscopy is all stable (10) Ileus Is this a current diagnosis for this admission?: Yes - Time Time Spent with patient: 15-24 minutes Medications reviewed and adjusted accordingly: Yes Anticipated discharge: SNF Within: when bed available - Inpatient Certification Based on my medical assessment, after consideration of the patient's comorbidities, presenting symptoms, or acuity I expect that the services needed warrant INPATIENT care.: Yes I certify that my determination is in accordance with my understanding of Medicare's requirements for reasonable and necessary INPATIENT services [42 CFR 412.3e].: Yes Medical Necessity: Need for IV Antibiotics Post Hospital Care: D/C Arc Welder Documentation - Plan Summary Plan Summary: Continues to current medications
[2018-01-19] MEDS: ONDANSETRON 4 MG TAB.RAPDIS PO PRN (12:40)
[2018-01-19] MEDS: ACETAMINOPHEN 325 MG TABLET PO PRN (12:41)
[2018-01-19] MEDS: MAG HYDROX/AL HYDROX/SIMETH SUSP 30 ML UDCUP PO PRN (18:23)
[2018-01-20] MEDS: GABAPENTIN 100 MG CAPSULE PO SCH ×3 (05:35→22:29)
[2018-01-20] MEDS: DICYCLOMINE HCL 10 MG CAPSULE PO SCH ×3 (05:35→22:29)
[2018-01-20] MEDS: LANSOPRAZOLE 30 MG TAB.RAP.DR PO SCH ×2 (05:35→17:25)
[2018-01-20] MEDS: LEVOTHYROXINE SODIUM 0.025 MG TABLET PO SCH (05:35)
[2018-01-20] MEDS: IPRATROPIUM/ALBUTEROL 0.5-2.5 MG/3 ML AMPUL NEB SCH ×4 (08:50→19:57)
--- NOTE | 2018-01-20 10:23 | PDOC PROGRESS REPORT ---
Subjective Progress Note for:: 01/20/18 Subjective:: pt is currently doing fair Patient's denied any chest pain denied any shortness of the breath Mild chest congestion's Reason For Visit: ACUTE RESPIRATORY FAILURE,UTI,SEPSIS Physical Exam Vital Signs: Temp Pulse Resp BP Pulse Ox 98.3 F 86 16 124/64 99 01/20/18 07:42 01/20/18 08:50 01/20/18 08:50 01/20/18 07:42 01/20/18 08:50 Intake & Output 01/19/18 01/20/18 01/21/18 06:59 06:59 06:59 Intake Total 1512 2580 Output Total 100 300 Balance 1412 2280 Weight 66.2 kg 66.2 kg General appearance: PRESENT: no acute distress, well-developed, well-nourished Head exam: PRESENT: atraumatic, normocephalic Eye exam: PRESENT: conjunctiva pink, EOMI, PERRLA. ABSENT: scleral icterus Ear exam: PRESENT: normal external ear exam Mouth exam: PRESENT: moist, tongue midline Neck exam: PRESENT: full ROM. ABSENT: carotid bruit, JVD, lymphadenopathy, thyromegaly Respiratory exam: PRESENT: clear to auscultation wilfredo Cardiovascular exam: PRESENT: RRR. ABSENT: diastolic murmur, rubs, systolic murmur Pulses: PRESENT: normal dorsalis pedis pul, +2 pedal pulses bilateral Vascular exam: PRESENT: normal capillary refill GI/Abdominal exam: PRESENT: normal bowel sounds, soft. ABSENT: distended, guarding, mass, organolmegaly, rebound, tenderness Rectal exam: PRESENT: deferred Extremities exam: ABSENT: pedal edema Neurological exam: PRESENT: alert, awake, oriented to person, oriented to place , oriented to time, oriented to situation, CN II-XII grossly intact. ABSENT: motor sensory deficit Psychiatric exam: PRESENT: appropriate affect, normal mood. ABSENT: homicidal ideation, suicidal ideation Skin exam: PRESENT: dry, intact, warm. ABSENT: cyanosis, rash Results Laboratory Results: 01/11/18 05:45 01/13/18 05:11 12/27/17 12/27/17 12/27/17 00:40 00:40 06:30 Creatine Kinase 36 26 L CK-MB (CK-2) 1.99 Troponin I < 0.012 12/27/17 12/27/17 12/27/17 06:30 12:35 12:35 Creatine Kinase 49 CK-MB (CK-2) 0.81 0.50 Troponin I < 0.012 < 0.012 Impressions: Small Bowel X-Ray 01/03/18 00:00 IMPRESSION: Partial small bowel obstruction with transition point in the deep midline pelvis Chest X-Ray 01/03/18 05:00 IMPRESSION: 1. No evidence of acute intrathoracic disease or significant change since the prior study. 2. Grossly stable life support lines and tubes. Abdomen/Pelvis CT 01/04/18 04:00 IMPRESSION: 1. Since the prior study on 01/02/2018 ,there has been overall decrease in generalized mall bowel distention particularly distally. There is now contrast throughout the colon to the rectum. The findings are most consistent with resolving generalized ileus and/or partial obstruction. 2. Mild ectasia of renal upper collecting systems and renal pelvii again noted unchanged. 3. Interval resolution of pelvic ascites. Persistent soft tissue anasarca. 4. Chronic bibasilar interstitial change and pleural thickening. KUB X-Ray 01/10/18 00:00 IMPRESSION: There may be some degree of ileus. No acute or new findings in the abdomen. Assessment & Plan - Diagnosis (1) Acute respiratory failure Qualifiers: Respiratory failure complication: hypoxia Qualified Code(s): J96.01 - Acute respiratory failure with hypoxia Is this a current diagnosis for this admission?: Yes Plan: Currently all resolved (2) Urinary tract infection Qualifiers: Urinary tract infection type: site unspecified Is this a current diagnosis for this admission?: Yes Plan: Currently all resolved (3) Depression Qualifiers: Depression Type: major depressive disorder Is this a current diagnosis for this admission?: Yes Plan: Patients follow with the psych (4) COPD exacerbation Is this a current diagnosis for this admission?: Yes Plan: Currently all getting better (5) Diabetes Qualifiers: Diabetes mellitus type: type 2 Is this a current diagnosis for this admission?: Yes Plan: Continues to sliding-scale (6) Generalized anxiety disorder Is this a current diagnosis for this admission?: Yes Plan: Once the patient extubated will restart the patient's psych medications (7) Hypertension Qualifiers: Hypertension type: essential hypertension Is this a current diagnosis for this admission?: Yes Plan: Currently all stable (8) Gastroesophageal reflux disease Qualifiers: Esophagitis presence: without esophagitis Qualified Code(s): K21.9 - Gastro -esophageal reflux disease without esophagitis Is this a current diagnosis for this admission?: Yes Plan: Continues to Protonix (9) Anemia Qualifiers: Anemia type: iron deficiency Is this a current diagnosis for this admission?: Yes Plan: Status post blood transfusion and colonoscopy is all stable (10) Ileus Is this a current diagnosis for this admission?: Yes - Time Time Spent with patient: 15-24 minutes Medications reviewed and adjusted accordingly: Yes Anticipated discharge: SNF Within: when bed available - Inpatient Certification Based on my medical assessment, after consideration of the patient's comorbidities, presenting symptoms, or acuity I expect that the services needed warrant INPATIENT care.: Yes I certify that my determination is in accordance with my understanding of Medicare's requirements for reasonable and necessary INPATIENT services [42 CFR 412.3e].: Yes Medical Necessity: Need Close Monitoring Due to Risk of Patient Decompensation Post Hospital Care: D/C Oil Well Logging 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
[2018-01-20] MEDS: SERTRALINE HCL 50 MG TABLET PO SCH (10:24)
[2018-01-20] MEDS: TAMSULOSIN HCL 0.4 MG CAP.SR.24H PO SCH (10:24)
[2018-01-20] MEDS: DOCUSATE SODIUM 100 MG CAPSULE PO SCH ×2 (10:25→17:31)
[2018-01-20] MEDS: ROFLUMILAST 500 MCG TABLET PO SCH (10:25)
[2018-01-20] MEDS: FLUTICASONE/SALMETEROL DISKUS 500-50 MCG/DOSE IH SCH ×2 (10:26→22:29)
[2018-01-20] MEDS: QUETIAPINE FUMARATE 100 MG TABLET PO SCH ×3 (10:26→22:29)
[2018-01-20] MEDS: NYSTATIN CREAM 15 GM TP SCH ×2 (10:28→17:29)
[2018-01-20] MEDS: METHYLPREDNISOLONE INJ 40 MG/1 ML SDV IV SCH (10:28)
[2018-01-20] MEDS: ENOXAPARIN SODIUM INJ 40 MG/0.4 ML DISP.SYRIN SUBCUT SCH (10:29)
[2018-01-20] MEDS: LORAZEPAM 1 MG TABLET PO PRN ×2 (10:40→17:26)
[2018-01-20] MEDS: ONDANSETRON HCL INJ/PF 4 MG/2 ML SDV IV PRN (13:57)
[2018-01-20] MEDS ORDERED: INSULIN REG, HUMAN 100 UNIT/ML 3 ML VIAL (PYX) SUBCUT PRN (14:48)
[2018-01-21] MEDS: DICYCLOMINE HCL 10 MG CAPSULE PO SCH ×3 (05:32→21:35)
[2018-01-21] MEDS: GABAPENTIN 100 MG CAPSULE PO SCH ×3 (05:32→21:35)
[2018-01-21] MEDS: LANSOPRAZOLE 30 MG TAB.RAP.DR PO SCH ×2 (05:33→17:32)
[2018-01-21] MEDS: LEVOTHYROXINE SODIUM 0.025 MG TABLET PO SCH (05:33)
[2018-01-21] MEDS: IPRATROPIUM/ALBUTEROL 0.5-2.5 MG/3 ML AMPUL NEB SCH ×4 (07:47→19:39)
[2018-01-21] MEDS: QUETIAPINE FUMARATE 100 MG TABLET PO SCH ×3 (08:59→21:34)
[2018-01-21] MEDS: FLUTICASONE/SALMETEROL DISKUS 500-50 MCG/DOSE IH SCH ×2 (09:00→21:34)
[2018-01-21] MEDS: PREDNISONE 10 MG TABLET PO SCH (09:09)
[2018-01-21] MEDS: ENOXAPARIN SODIUM INJ 40 MG/0.4 ML DISP.SYRIN SUBCUT SCH (09:09)
[2018-01-21] MEDS: ROFLUMILAST 500 MCG TABLET PO SCH (09:09)
[2018-01-21] MEDS: TAMSULOSIN HCL 0.4 MG CAP.SR.24H PO SCH (09:09)
[2018-01-21] MEDS: LORAZEPAM 1 MG TABLET PO PRN ×2 (09:12→17:46)
[2018-01-21] MEDS: SERTRALINE HCL 50 MG TABLET PO SCH (09:27)
[2018-01-21] MEDS: DOCUSATE SODIUM 100 MG CAPSULE PO SCH ×2 (09:27→17:47)
[2018-01-21] MEDS: NYSTATIN CREAM 15 GM TP SCH ×2 (09:28→17:35)
[2018-01-21] MEDS: MAG HYDROX/AL HYDROX/SIMETH SUSP 30 ML UDCUP PO PRN (10:15)
[2018-01-21] MEDS: ONDANSETRON HCL INJ/PF 4 MG/2 ML SDV IV PRN (13:25)
[2018-01-21] MEDS: FLUCONAZOLE 100 MG TABLET PO SCH (17:34)
[2018-01-21] MEDS: ONDANSETRON 4 MG TAB.RAPDIS PO PRN (21:34)
[2018-01-21] MEDS: FLUTICASONE NASAL SPRAY 50 MCG/SPRY 120 SPRAY/16 GM NASL SCH (21:35)
[2018-01-22] MEDS: GABAPENTIN 100 MG CAPSULE PO SCH ×3 (06:08→21:22)
[2018-01-22] MEDS: OMEPRAZOLE 40 MG PO SCH (06:09)
[2018-01-22] MEDS: LEVOTHYROXINE SODIUM 0.025 MG TABLET PO SCH (06:09)
[2018-01-22] MEDS: DICYCLOMINE HCL 10 MG CAPSULE PO SCH ×3 (06:12→21:22)
[2018-01-22] MEDS: IPRATROPIUM/ALBUTEROL 0.5-2.5 MG/3 ML AMPUL NEB SCH ×4 (08:29→20:31)
[2018-01-22] MEDS: SERTRALINE HCL 50 MG TABLET PO SCH (08:32)
[2018-01-22] MEDS: QUETIAPINE FUMARATE 100 MG TABLET PO SCH ×3 (08:33→21:23)
[2018-01-22] MEDS: LORATADINE 10 MG TABLET PO SCH (09:14)
[2018-01-22] MEDS: PREDNISONE 10 MG TABLET PO SCH (09:14)
[2018-01-22] MEDS: LORAZEPAM 1 MG TABLET PO PRN ×3 (09:14→21:23)
[2018-01-22] MEDS: DOCUSATE SODIUM 100 MG CAPSULE PO SCH ×3 (09:14→17:43)
[2018-01-22] MEDS: FLUTICASONE NASAL SPRAY 50 MCG/SPRY 120 SPRAY/16 GM NASL SCH ×2 (09:14→21:22)
[2018-01-22] MEDS: FLUTICASONE/SALMETEROL DISKUS 500-50 MCG/DOSE IH SCH ×2 (09:14→21:22)
[2018-01-22] MEDS: ROFLUMILAST 500 MCG TABLET PO SCH (09:14)
[2018-01-22] MEDS: TAMSULOSIN HCL 0.4 MG CAP.SR.24H PO SCH (09:14)
[2018-01-22] MEDS: FLUCONAZOLE 100 MG TABLET PO SCH (09:14)
[2018-01-22] MEDS: ENOXAPARIN SODIUM INJ 40 MG/0.4 ML DISP.SYRIN SUBCUT SCH (09:15)
[2018-01-22] MEDS: MAG HYDROX/AL HYDROX/SIMETH SUSP 30 ML UDCUP PO PRN (09:59)
[2018-01-22] MEDS: NYSTATIN CREAM 15 GM TP SCH ×2 (10:34→17:57)
--- NOTE | 2018-01-22 12:06 | PDOC PROGRESS REPORT ---
Subjective Progress Note for:: 01/22/18 Subjective:: pt is currently doing fair Patient's denied any chest pain denied any shortness of the breath Mild chest congestion's Reason For Visit: ACUTE RESPIRATORY FAILURE,UTI,SEPSIS Physical Exam Vital Signs: Temp Pulse Resp BP Pulse Ox 97.9 F 95 18 133/57 H 100 01/22/18 07:54 01/22/18 11:37 01/22/18 11:37 01/22/18 07:54 01/22/18 11:37 Intake & Output 01/21/18 01/22/18 01/23/18 06:59 06:59 06:59 Intake Total 1714 2102 Balance 1714 2102 Weight 67.2 kg 68.3 kg General appearance: PRESENT: no acute distress, well-developed, well-nourished Head exam: PRESENT: atraumatic, normocephalic Eye exam: PRESENT: conjunctiva pink, EOMI, PERRLA. ABSENT: scleral icterus Ear exam: PRESENT: normal external ear exam Mouth exam: PRESENT: moist, tongue midline Neck exam: PRESENT: full ROM. ABSENT: carotid bruit, JVD, lymphadenopathy, thyromegaly Respiratory exam: PRESENT: clear to auscultation wilfredo Cardiovascular exam: PRESENT: RRR. ABSENT: diastolic murmur, rubs, systolic murmur Pulses: PRESENT: normal dorsalis pedis pul, +2 pedal pulses bilateral Vascular exam: PRESENT: normal capillary refill GI/Abdominal exam: PRESENT: normal bowel sounds, soft. ABSENT: distended, guarding, mass, organolmegaly, rebound, tenderness Rectal exam: PRESENT: deferred Neurological exam: PRESENT: alert, awake, oriented to person, oriented to place , oriented to time, oriented to situation, CN II-XII grossly intact. ABSENT: motor sensory deficit Psychiatric exam: PRESENT: appropriate affect, normal mood. ABSENT: homicidal ideation, suicidal ideation Skin exam: PRESENT: dry, intact, warm. ABSENT: cyanosis, rash Results Laboratory Results: 01/11/18 05:45 01/13/18 05:11 12/27/17 12/27/17 12/27/17 00:40 00:40 06:30 Creatine Kinase 36 26 L CK-MB (CK-2) 1.99 Troponin I < 0.012 12/27/17 12/27/17 12/27/17 06:30 12:35 12:35 Creatine Kinase 49 CK-MB (CK-2) 0.81 0.50 Troponin I < 0.012 < 0.012 Impressions: Small Bowel X-Ray 01/03/18 00:00 IMPRESSION: Partial small bowel obstruction with transition point in the deep midline pelvis Chest X-Ray 01/03/18 05:00 IMPRESSION: 1. No evidence of acute intrathoracic disease or significant change since the prior study. 2. Grossly stable life support lines and tubes. Abdomen/Pelvis CT 01/04/18 04:00 IMPRESSION: 1. Since the prior study on 01/02/2018 ,there has been overall decrease in generalized mall bowel distention particularly distally. There is now contrast throughout the colon to the rectum. The findings are most consistent with resolving generalized ileus and/or partial obstruction. 2. Mild ectasia of renal upper collecting systems and renal pelvii again noted unchanged. 3. Interval resolution of pelvic ascites. Persistent soft tissue anasarca. 4. Chronic bibasilar interstitial change and pleural thickening. KUB X-Ray 01/10/18 00:00 IMPRESSION: There may be some degree of ileus. No acute or new findings in the abdomen. Assessment & Plan - Diagnosis (1) Acute respiratory failure Qualifiers: Respiratory failure complication: hypoxia Qualified Code(s): J96.01 - Acute respiratory failure with hypoxia Is this a current diagnosis for this admission?: Yes Plan: Currently all resolved (2) Urinary tract infection Qualifiers: Urinary tract infection type: site unspecified Is this a current diagnosis for this admission?: Yes Plan: Currently all resolved (3) Depression Qualifiers: Depression Type: major depressive disorder Is this a current diagnosis for this admission?: Yes Plan: Patients follow with the psych (4) COPD exacerbation Is this a current diagnosis for this admission?: Yes Plan: Currently all getting better (5) Diabetes Qualifiers: Diabetes mellitus type: type 2 Is this a current diagnosis for this admission?: Yes Plan: Continues to sliding-scale (6) Generalized anxiety disorder Is this a current diagnosis for this admission?: Yes Plan: Once the patient extubated will restart the patient's psych medications (7) Hypertension Qualifiers: Hypertension type: essential hypertension Is this a current diagnosis for this admission?: Yes Plan: Currently all stable (8) Gastroesophageal reflux disease Qualifiers: Esophagitis presence: without esophagitis Qualified Code(s): K21.9 - Gastro -esophageal reflux disease without esophagitis Is this a current diagnosis for this admission?: Yes Plan: Continues to Protonix (9) Anemia Qualifiers: Anemia type: iron deficiency Is this a current diagnosis for this admission?: Yes (10) Ileus Is this a current diagnosis for this admission?: Yes - Time Time Spent with patient: 15-24 minutes Medications reviewed and adjusted accordingly: Yes Anticipated discharge: SNF Within: when bed available - Inpatient Certification Medical Necessity: Significant Comorbidiites Make Outpatient Treatment Too Risky Post Hospital Care: D/C Quantitative Research Analyst Documentation - Plan Summary Plan Summary: Patient is currently all stable
[2018-01-23] MEDS: LEVOTHYROXINE SODIUM 0.025 MG TABLET PO SCH (05:47)
[2018-01-23] MEDS: DICYCLOMINE HCL 10 MG CAPSULE PO SCH ×3 (05:47→23:28)
[2018-01-23] MEDS: OMEPRAZOLE 40 MG PO SCH (05:47)
[2018-01-23] MEDS: GABAPENTIN 100 MG CAPSULE PO SCH ×3 (05:47→23:30)
[2018-01-23] MEDS: IPRATROPIUM/ALBUTEROL 0.5-2.5 MG/3 ML AMPUL NEB SCH ×4 (07:51→19:51)
[2018-01-23] MEDS: SERTRALINE HCL 50 MG TABLET PO SCH (08:23)
[2018-01-23] MEDS: QUETIAPINE FUMARATE 100 MG TABLET PO SCH ×3 (08:23→23:31)
[2018-01-23] MEDS: LORAZEPAM 1 MG TABLET PO PRN ×3 (08:26→23:31)
--- NOTE | 2018-01-23 08:41 | PDOC PROGRESS REPORT ---
Subjective Progress Note for:: 01/23/18 Subjective:: pt is currently doing fair Patient's denied any chest pain denied any shortness of the breath Mild chest congestion's Reason For Visit: ACUTE RESPIRATORY FAILURE,UTI,SEPSIS Physical Exam Vital Signs: Temp Pulse Resp BP Pulse Ox 98.1 F 80 18 119/62 100 01/23/18 07:43 01/23/18 07:46 01/23/18 07:46 01/23/18 07:43 01/23/18 07:46 Intake & Output 01/22/18 01/23/18 01/24/18 06:59 06:59 06:59 Intake Total 2101 2129 Balance 2101 2129 Weight 68.3 kg 69 kg General appearance: PRESENT: no acute distress, well-developed, well-nourished Head exam: PRESENT: atraumatic, normocephalic Eye exam: PRESENT: conjunctiva pink, EOMI, PERRLA. ABSENT: scleral icterus Ear exam: PRESENT: normal external ear exam Mouth exam: PRESENT: moist, tongue midline Neck exam: PRESENT: full ROM. ABSENT: carotid bruit, JVD, lymphadenopathy, thyromegaly Respiratory exam: PRESENT: clear to auscultation wilfredo Cardiovascular exam: PRESENT: RRR. ABSENT: diastolic murmur, rubs, systolic murmur Pulses: PRESENT: normal dorsalis pedis pul, +2 pedal pulses bilateral Vascular exam: PRESENT: normal capillary refill GI/Abdominal exam: PRESENT: normal bowel sounds, soft. ABSENT: distended, guarding, mass, organolmegaly, rebound, tenderness Rectal exam: PRESENT: deferred Extremities exam: ABSENT: joint swelling, pedal edema Neurological exam: PRESENT: alert, awake, oriented to person, oriented to place , oriented to time, oriented to situation, CN II-XII grossly intact. ABSENT: motor sensory deficit Psychiatric exam: PRESENT: appropriate affect, normal mood. ABSENT: homicidal ideation, suicidal ideation Skin exam: PRESENT: dry, intact, warm. ABSENT: cyanosis, rash Results Laboratory Results: 01/11/18 05:45 01/13/18 05:11 12/27/17 12/27/17 12/27/17 00:40 00:40 06:30 Creatine Kinase 36 26 L CK-MB (CK-2) 1.99 Troponin I < 0.012 12/27/17 12/27/17 12/27/17 06:30 12:35 12:35 Creatine Kinase 49 CK-MB (CK-2) 0.81 0.50 Troponin I < 0.012 < 0.012 Impressions: Small Bowel X-Ray 01/03/18 00:00 IMPRESSION: Partial small bowel obstruction with transition point in the deep midline pelvis Chest X-Ray 01/03/18 05:00 IMPRESSION: 1. No evidence of acute intrathoracic disease or significant change since the prior study. 2. Grossly stable life support lines and tubes. Abdomen/Pelvis CT 01/04/18 04:00 IMPRESSION: 1. Since the prior study on 01/02/2018 ,there has been overall decrease in generalized mall bowel distention particularly distally. There is now contrast throughout the colon to the rectum. The findings are most consistent with resolving generalized ileus and/or partial obstruction. 2. Mild ectasia of renal upper collecting systems and renal pelvii again noted unchanged. 3. Interval resolution of pelvic ascites. Persistent soft tissue anasarca. 4. Chronic bibasilar interstitial change and pleural thickening. KUB X-Ray 01/10/18 00:00 IMPRESSION: There may be some degree of ileus. No acute or new findings in the abdomen. Assessment & Plan - Diagnosis (1) Acute respiratory failure Qualifiers: Respiratory failure complication: hypoxia Qualified Code(s): J96.01 - Acute respiratory failure with hypoxia Is this a current diagnosis for this admission?: Yes Plan: Currently all resolved (2) Urinary tract infection Qualifiers: Urinary tract infection type: site unspecified Is this a current diagnosis for this admission?: Yes Plan: Currently all resolved (3) Depression Qualifiers: Depression Type: major depressive disorder Is this a current diagnosis for this admission?: Yes Plan: Patients follow with the psych (4) COPD exacerbation Is this a current diagnosis for this admission?: Yes Plan: Currently all getting better (5) Diabetes Qualifiers: Diabetes mellitus type: type 2 Is this a current diagnosis for this admission?: Yes Plan: Continues to sliding-scale (6) Generalized anxiety disorder Is this a current diagnosis for this admission?: Yes Plan: Once the patient extubated will restart the patient's psych medications (7) Hypertension Qualifiers: Hypertension type: essential hypertension Is this a current diagnosis for this admission?: Yes Plan: Currently all stable (8) Gastroesophageal reflux disease Qualifiers: Esophagitis presence: without esophagitis Qualified Code(s): K21.9 - Gastro -esophageal reflux disease without esophagitis Is this a current diagnosis for this admission?: Yes Plan: Continues to Protonix (9) Anemia Qualifiers: Anemia type: iron deficiency Is this a current diagnosis for this admission?: Yes (10) Ileus Is this a current diagnosis for this admission?: Yes - Time Time Spent with patient: 15-24 minutes Medications reviewed and adjusted accordingly: Yes Anticipated discharge: SNF Within: when bed available - Inpatient Certification Based on my medical assessment, after consideration of the patient's comorbidities, presenting symptoms, or acuity I expect that the services needed warrant INPATIENT care.: Yes I certify that my determination is in accordance with my understanding of Medicare's requirements for reasonable and necessary INPATIENT services [42 CFR 412.3e].: Yes - Plan Summary Plan Summary: Patient is medically and psychiatrically stable for almost 2 weeks patients waiting to go to the rehab facilities due to the multiple issues and patient was living in assisted living for a long time and patients require more careAnd more appropriate to go to the [facility] facilities in the rehab
[2018-01-23] MEDS: FLUTICASONE/SALMETEROL DISKUS 500-50 MCG/DOSE IH SCH ×2 (09:29→23:27)
[2018-01-23] MEDS: ROFLUMILAST 500 MCG TABLET PO SCH (09:30)
[2018-01-23] MEDS: DOCUSATE SODIUM 100 MG CAPSULE PO SCH ×2 (09:31→18:37)
[2018-01-23] MEDS: LORATADINE 10 MG TABLET PO SCH (09:31)
[2018-01-23] MEDS: TAMSULOSIN HCL 0.4 MG CAP.SR.24H PO SCH (09:31)
[2018-01-23] MEDS: PREDNISONE 10 MG TABLET PO SCH (09:31)
[2018-01-23] MEDS: FLUTICASONE NASAL SPRAY 50 MCG/SPRY 120 SPRAY/16 GM NASL SCH ×2 (09:32→23:28)
[2018-01-23] MEDS: FLUCONAZOLE 100 MG TABLET PO SCH (09:33)
[2018-01-23] MEDS: ENOXAPARIN SODIUM INJ 40 MG/0.4 ML DISP.SYRIN SUBCUT SCH (09:35)
[2018-01-23] MEDS: NYSTATIN CREAM 15 GM TP SCH ×2 (10:15→18:36)
[2018-01-23] MEDS: ACETAMINOPHEN 325 MG TABLET PO PRN (10:28)
[2018-01-23] MEDS: MAG HYDROX/AL HYDROX/SIMETH SUSP 30 ML UDCUP PO PRN (13:33)
[2018-01-24] MEDS: DICYCLOMINE HCL 10 MG CAPSULE PO SCH ×2 (06:45→14:17)
[2018-01-24] MEDS: LEVOTHYROXINE SODIUM 0.025 MG TABLET PO SCH (06:46)
[2018-01-24] MEDS: OMEPRAZOLE 40 MG PO SCH (06:48)
[2018-01-24] MEDS: GABAPENTIN 100 MG CAPSULE PO SCH ×2 (06:50→13:09)
[2018-01-24] MEDS: IPRATROPIUM/ALBUTEROL 0.5-2.5 MG/3 ML AMPUL NEB SCH ×3 (08:28→16:43)
[2018-01-24] MEDS: QUETIAPINE FUMARATE 100 MG TABLET PO SCH ×2 (08:55→12:50)
[2018-01-24] MEDS: SERTRALINE HCL 50 MG TABLET PO SCH (08:55)
[2018-01-24] MEDS: LORAZEPAM 1 MG TABLET PO PRN ×2 (09:12→16:16)
[2018-01-24] MEDS: ACETAMINOPHEN 325 MG TABLET PO PRN (09:13)
[2018-01-24] MEDS: TAMSULOSIN HCL 0.4 MG CAP.SR.24H PO SCH (09:14)
[2018-01-24] MEDS: LORATADINE 10 MG TABLET PO SCH (09:14)
[2018-01-24] MEDS: DOCUSATE SODIUM 100 MG CAPSULE PO SCH ×2 (09:15→19:00)
[2018-01-24] MEDS: PREDNISONE 10 MG TABLET PO SCH (09:16)
[2018-01-24] MEDS: ROFLUMILAST 500 MCG TABLET PO SCH (09:17)
[2018-01-24] MEDS: FLUCONAZOLE 100 MG TABLET PO SCH (09:17)
[2018-01-24] MEDS: FLUTICASONE/SALMETEROL DISKUS 500-50 MCG/DOSE IH SCH (09:18)
[2018-01-24] MEDS: ENOXAPARIN SODIUM INJ 40 MG/0.4 ML DISP.SYRIN SUBCUT SCH (09:19)
[2018-01-24] MEDS: NYSTATIN CREAM 15 GM TP SCH ×2 (09:21→18:03)
[2018-01-24] MEDS: FLUTICASONE NASAL SPRAY 50 MCG/SPRY 120 SPRAY/16 GM NASL SCH (13:42)
[2018-01-24 17:54] VITALS: BP 124/60
== END 2018-01-24 19:58 | DRG 870 ==
LOC: ER 18:36 → EH 21:15 → ICU 23:30 → 5 01-05 15:42
PROVIDERS: ADMIT Family Medicine; ATTEND Family Medicine
PROC: 5A1955Z Respiratory Ventilation, Greater than 96 Consecutive Hours (ICD-10-PCS; principal; 2017-12-26)
PROC: 0BH17EZ Insertion of Endotracheal Airway into Trachea, Via Natural or Artificial Opening (ICD-10-PCS; 2017-12-26)
PROC: 02HV33Z Insertion of Infusion Device into Superior Vena Cava, Percutaneous Approach (ICD-10-PCS; 2017-12-27)
PROC: 0DD68ZX Extraction of Stomach, Via Natural or Artificial Opening Endoscopic, Diagnostic (ICD-10-PCS; 2017-12-31)
PROC: 30233N1 Transfusion of Nonautologous Red Blood Cells into Peripheral Vein, Percutaneous Approach (ICD-10-PCS; 2017-12-31)
PROC: 30233N1 Transfusion of Nonautologous Red Blood Cells into Peripheral Vein, Percutaneous Approach (ICD-10-PCS; 2018-01-07)
PROC: 0DDF8ZX Extraction of Right Large Intestine, Via Natural or Artificial Opening Endoscopic, Diagnostic (ICD-10-PCS; 2018-01-09)
PROC: 0DBK8ZX Excision of Ascending Colon, Via Natural or Artificial Opening Endoscopic, Diagnostic (ICD-10-PCS; 2018-01-09)
PROC: 3E0234Z Introduction of Serum, Toxoid and Vaccine into Muscle, Percutaneous Approach (ICD-10-PCS; 2018-01-24)
DX: A41.9 Sepsis, unspecified organism (principal); J96.21 Acute and chronic respiratory failure with hypoxia; J18.9 Pneumonia, unspecified organism; J44.0 Chronic obstructive pulmonary disease with (acute) lower respiratory infection; J44.1 Chronic obstructive pulmonary disease with (acute) exacerbation; N39.0 Urinary tract infection, site not specified; K56.7 Ileus, unspecified; E87.6 Hypokalemia; D64.9 Anemia, unspecified; I10 Essential (primary) hypertension; K63.5 Polyp of colon; E11.8 Type 2 diabetes mellitus with unspecified complications; K21.9 Gastro-esophageal reflux disease without esophagitis; F41.1 Generalized anxiety disorder; F25.9 Schizoaffective disorder, unspecified; B96.20 Unspecified Escherichia coli [E. coli] as the cause of diseases classified elsewhere; F17.210 Nicotine dependence, cigarettes, uncomplicated; Z23 Encounter for immunization; Z99.81 Dependence on supplemental oxygen; Z79.82 Long term (current) use of aspirin; Z79.51 Long term (current) use of inhaled steroids; Z79.899 Other long term (current) drug therapy
CPT/HCPCS: 00811; 36415; 36430; 43239; 45380; 45385; 71045; 74018; 74176; 74177; 74250; 80048; 80053; 80170; 80202; 81001; 82150; 82272; 82550; 82553; 82607; 82728; 82746; 82803; 82962; 83540; 83550; 83605; 83690; 83735; 84132; 84484; 85025; 85027; 85045; 86850; 86900; 86901; 86920; 87040; 87070; 87077; 87086; 87088; 87186; 87205; 87493; 88305; 90471; 90686; 93005; 93010; 94002; 94003; 94640; 96365; 96366; 99285; C1751; G0008; J0171; J0692; J1580; J1642; J1650; J1815; J1956; J2060; J2250; J2405; J2543; J2704; J2920; J2930; J3010; J3370; J3475; J3480; J3490; J7030; J7060; J7512; J7620; P9016; S0119; S0164

== ENCOUNTER 2018-03-05 20:45 | Inpatient (IN) | payer MEDICAID ==
--- NOTE | 2018-03-05 21:27 | ER Document Report ---
ED General - General Stated Complaint: LOW SODIUM LEVELS Time Seen by Provider: 03/05/18 21:07 Notes: This is a 57-year-old female to the emergency department from a local nursing facility for evaluation of altered mental status and failure to thrive. Patient has severe mental health issues as well as end-stage COPD. Patient has been in hospice in the past. She was reportedly increased confusion, decreased p.o. intake and not acting her normal self. Patient has an indwelling Tenorio catheter. Nonambulatory. Power of engineer conductor is her sister. Patient was recently intubated during hospital stay and was on a ventilator for approximately a month. Patient also complaining of abdominal pain. TRAVEL OUTSIDE OF THE [place] IN LAST 30 DAYS: No - HPI Onset/Duration: Gradual, Worse Quality of pain: Achy Severity: Severe Pain Level: 1 Associated symptoms: Slow to respond, Weakness - Related Data Allergies/Adverse Reactions: clarithromycin [From Biaxin] Allergy (Severe, Verified 12/26/17 19:20) TONGUE/THROAT SWELLING furosemide [From Lasix] Allergy (Intermediate, Verified 12/26/17 19:20) UNSURE venlafaxine HCl [From Effexor] Allergy (Intermediate, Verified 12/26/17 19:20) MUSCLE WEAKNESS adhesive tape Allergy (Verified 12/26/17 19:20) RASH divalproex sodium [From Depakote] Allergy (Verified 12/26/17 19:20) UNSURE Past Medical History - General Information source: Patient, Relative, Outside Facility Records Cannot obtain history due to: Altered mental status - Social History Smoking Status: Former Smoker Frequency of alcohol use: None Drug Abuse: None Lives with: Long Term Family History: CAD, COPD, Hypertension, Malignancy - Past Medical History Cardiac Medical History: Reports: Hx Hypertension Denies: Hx Coronary Artery Disease, Hx Heart Attack Pulmonary Medical History: Reports: Hx Asthma, Hx Bronchitis, Hx COPD, Hx Pneumonia Denies: Hx Tuberculosis Neurological Medical History: Reports: Hx Seizures. Denies: Hx Cerebrovascular Accident Endocrine Medical History: Reports: Hx Diabetes Mellitus Type 2 Renal/ Medical History: Denies: Hx Peritoneal Dialysis GI Medical History: Reports: Hx Gastroesophageal Reflux Disease, Hx Hiatal Hernia, Hx Ulcer - UMBILICAL. Denies: Hx Hepatitis Musculoskeletal Medical History: Reports Hx Arthritis Psychiatric Medical History: Reports: Hx Depression, Hx Schizoaffective Disorder , Hx Schizophrenia Infectious Medical History: Denies: Hx Hepatitis Past Surgical History: Reports: Hx Abdominal Surgery, Hx Appendectomy, Hx Section, Hx Cholecystectomy, Hx Hysterectomy, Other - Nate fundoplication, ventral herniorraphy 15 yrs ago. Denies: Hx Mastectomy, Hx Open Heart Surgery, Hx Pacemaker - Immunizations Hx Diphtheria, Pertussis, Tetanus Vaccination: No Hx Pneumococcal Vaccination: 01/30/13 Review of Systems - Review of Systems Notes: Constitutional: denies: Chills, Diaphoresis, Fever, and complains of weakness and fatigue. EENT: denies: Eye discharge, Blurred vision, Tearing, Double vision, Nose congestion, Nose discharge, Throat swelling, Mouth pain Cardiovascular: denies: Palpitations, Heart racing, Orthopnea, Dyspnea, Chest pain Respiratory: denies: Cough, Hurts to breathe, and complains of chronic shortness of breath and wheeze with history of COPD Gastrointestinal: Complaining of diffuse abdominal pain. Mild nausea. No vomiting. No blood in the stool. Genitourinary: Complaining of hematuria with dysuria. Indwelling Tenorio catheter which had blood and extremely concentrated looking urine. Musculoskeletal: denies: Joint pain, Joint swelling, Muscle pain, Muscle stiffness, back pain. Does not have ability to ambulate. Hematologic/Lymphatic: denies: Anemia, Easy bleeding, Easy bruising, Blood clots Neurological/Psychological: History of depression and schizophrenia with increased amounts of confusion. Skin: No lesions, no masses, no skin breakdown, no abscesses Physical Exam - Vital signs Interpretation: Hypotensive - General General appearance: Lethargic In distress: Moderate - HEENT Head: Normocephalic, Atraumatic Eyes: Normal Pupils: PERRL Mucous membranes: Dry - Respiratory Respiratory status: No respiratory distress Chest status: Nontender Breath sounds: Normal Chest palpation: Normal - Cardiovascular Rhythm: Regular Heart sounds: Normal auscultation Murmur: No - Abdominal Inspection: Normal Distension: No distension Bowel sounds: Normal Tenderness: Tender - Diffuse tenderness Organomegaly: No organomegaly - Back Back: Normal, Nontender - Extremities General upper extremity: Normal inspection, Nontender, Normal color, Normal ROM , Normal temperature General lower extremity: Normal inspection, Nontender, Normal color, Normal ROM , Normal temperature. No: Adrianne's sign - Neurological Neuro grossly intact: Yes Cognition: Normal Orientation: AAOx4 Fowler Coma Scale Eye Opening: Spontaneous Hossein Coma Scale Verbal: Oriented Fowler Coma Scale Motor: Obeys Commands Hossein Coma Scale Total: 15 Speech: Normal Motor strength normal: LUE, RUE, LLE, RLE Sensory: Normal - Psychological Associated symptoms: Normal affect, Normal mood - Skin Skin Temperature: Warm Skin Moisture: Dry Skin Color: Normal Course - Re-evaluation Re-evalutation: 03/05/18 21:55 Based on outpatient labs which are in the system patient has a profound hyponatremia. Acute renal failure. Leukocytosis. Definitely increased concerns at this time for sepsis. Will order blood cultures, lactate, fluid bolus. Discussed resuscitation measures with the family and currently patient states that she does not really want resuscitation however power of engineer conductor thinks that this is the best thing to do at this time. Patient is quite young but she has a very poor quality of life. Has a very blood draw. Will likely proceed with central line at this time. Will CT the abdomen and pelvis and get a chest x-ray. 03/05/18 23:23 Consent was obtained for central line as the nurses were unable to get IV access and patient was hypotensive with an elevated WBC count and concerns for sepsis. A line was placed without difficulty in the right IJ underneath ultrasound guidance. No ICU bed available at this time. Repeat labs are pending. 03/05/18 23:33 Patient has a indwelling Tenorio catheter and urine looks turbid. More likely this is UTI sepsis. Previous culture results were reviewed. Patient had a E. coli grown out on previous urine culture which was resistant to Cipro and Levaquin. We will start her on Zosyn at this time. Consulted with Dr. Chin who is her primary care doctor. He is adamant that he does not want her transferred. Currently we are holding patient's in the ER as no immediate ICU bed is available. I did discuss this with Dr. Chin and he does not want her transferred at this time he will take care of her in the ER. I will follow his wishes as he will be following this patient as an outpatient. I have discussed case with family. Patient in guarded condition at this time. 03/06/18 00:25 Chest X-Ray 03/05/18 23:19 IMPRESSION: Interval line/tube modification. 03/06/18 00:28 CT abdomen pelvis: Fax report No acute intra-abdominal abnormality seen. 03/06/18 00:28 Laboratory WBC 25.3 10^3/uL (4.0-10.5) H 03/05/18 21:30 RBC 3.69 10^6/uL (3.72-5.28) L 03/05/18 21:30 Hgb 11.0 g/dL (12.0-15.5) L 03/05/18 21:30 Hct 31.7 % (36.0-47.0) L 03/05/18 21:30 MCV 86 fl (80-97) 03/05/18 21:30 MCH 29.7 pg (27.0-33.4) 03/05/18 21:30 MCHC 34.6 g/dL (32.0-36.0) 03/05/18 21:30 RDW 16.6 % (11.5-14.0) H 03/05/18 21:30 Plt Count 130 10^3/uL (150-450) L 03/05/18 21:30 Total Counted 100 03/05/18 21:30 Seg Neutrophils % Not Reportable 03/05/18 21:30 Seg Neuts % (Manual) 92 % (42-78) H 03/05/18 21:30 Lymphocytes % Not Reportable 03/05/18 21:30 Lymphocytes % (Manual) 2 % (13-45) L 03/05/18 21:30 Monocytes % Not Reportable 03/05/18 21:30 Monocytes % (Manual) 6 % (3-13) 03/05/18 21:30 Eosinophils % Not Reportable 03/05/18 21:30 Eosinophils % (Manual) 0 % (0-6) 03/05/18 21:30 Basophils % Not Reportable 03/05/18 21:30 Basophils % (Manual) 0 % (0-2) 03/05/18 21:30 Absolute Neutrophils Not Reportable 03/05/18 21:30 Abs Neuts (Manual) 23.3 10^3/uL (1.7-8.2) H 03/05/18 21:30 Absolute Lymphocytes Not Reportable 03/05/18 21:30 Abs Lymphs (Manual) 0.5 10^3/uL (0.5-4.7) 03/05/18 21:30 Absolute Monocytes Not Reportable 03/05/18 21:30 Abs Monocytes (Manual) 1.5 10^3/uL (0.1-1.4) H 03/05/18 21:30 Absolute Eosinophils Not Reportable 03/05/18 21:30 Absolute Eos (Manual) 0.0 10^3/uL (0.0-0.6) 03/05/18 21:30 Absolute Basophils Not Reportable 03/05/18 21:30 Abs Basophils (Manual) 0.0 10^3/uL (0.0-0.2) 03/05/18 21:30 Large Platelets PRESENT 03/05/18 21:30 Platelet Comment DECREASED 03/05/18 21:30 Poikilocytosis SLIGHT 03/05/18 21:30 Anisocytosis 1+ 03/05/18 21:30 Target Cells SLIGHT 03/05/18 21:30 Ovalocytes SLIGHT 03/05/18 21:30 Sodium Cancelled 03/05/18 21:30 Potassium Cancelled 03/05/18 21:30 Chloride Cancelled 03/05/18 21:30 Carbon Dioxide Cancelled 03/05/18 21:30 Anion Gap Cancelled 03/05/18 21:30 BUN Cancelled 03/05/18 21:30 Creatinine Cancelled 03/05/18 21:30 Est GFR ( Amer) Cancelled 03/05/18 21:30 Est GFR (Non-Af Amer) Cancelled 03/05/18 21:30 Glucose Cancelled 03/05/18 21:30 Lactic Acid 0.8 mmol/L (0.7-2.1) 03/05/18 21:30 Calcium Cancelled 03/05/18 21:30 Total Bilirubin Cancelled 03/05/18 21:30 Direct Bilirubin Cancelled 03/05/18 21:30 Neonat Total Bilirubin Cancelled 03/05/18 21:30 Neonat Direct Bilirubin Cancelled 03/05/18 21:30 Neonat Indirect Bili Cancelled 03/05/18 21:30 AST Cancelled 03/05/18 21:30 ALT Cancelled 03/05/18 21:30 Alkaline Phosphatase Cancelled 03/05/18 21:30 Creatine Kinase Cancelled 03/05/18 21:30 CK-MB (CK-2) 1.27 ng/mL (<4.55) 03/05/18 21:30 Troponin I 0.018 ng/mL 03/05/18 21:30 Total Protein Cancelled 03/05/18 21:30 Albumin Cancelled 03/05/18 21:30 Urine Color JONES 03/05/18 23:50 Urine Appearance TURBID 03/05/18 23:50 Urine pH 5.0 (5.0-9.0) 03/05/18 23:50 Ur Specific [place] 1.011 03/05/18 23:50 Urine Protein 100 mg/dL (NEGATIVE) H 03/05/18 23:50 Urine Glucose (UA) NEGATIVE mg/dL (NEGATIVE) 03/05/18 23:50 Urine Ketones NEGATIVE mg/dL (NEGATIVE) 03/05/18 23:50 Urine Blood LARGE (NEGATIVE) H 03/05/18 23:50 Urine Nitrite NEGATIVE (NEGATIVE) 03/05/18 23:50 Urine Bilirubin NEGATIVE (NEGATIVE) 03/05/18 23:50 Urine Urobilinogen NEGATIVE mg/dL (<2.0) 03/05/18 23:50 Ur Leukocyte Esterase LARGE (NEGATIVE) H 03/05/18 23:50 Urine WBC (Auto) >182 /HPF 03/05/18 23:50 Urine RBC (Auto) 30 /HPF 03/05/18 23:50 Urine Bacteria (Auto) 3+ /HPF 03/05/18 23:50 Amorphous Sediment Auto TRACE /HPF 03/05/18 23:50 Urine Ascorbic Acid NEGATIVE (NEGATIVE) 03/05/18 23:50 - Laboratory Result Diagrams: 03/05/18 21:30 03/05/18 21:30 Laboratory results interpreted by me: 03/05/18 21:30 WBC 25.3 H RBC 3.69 L Hgb 11.0 L Hct 31.7 L RDW 16.6 H Plt Count 130 L Seg Neuts % (Manual) 92 H Lymphocytes % (Manual) 2 L Abs Neuts (Manual) 23.3 H Abs Monocytes (Manual) 1.5 H Procedures - Central Line Right Internal jugular Time completed: 23:24 Consent obtained: Yes Central line pre-insertion: Sterile PPE donned, Chloraprep applied, Sterile drapes applied Central line lumen type: Triple Anesthetic type: 1% Lidocaine mL's of anesthesia: 2 Ultrasound guided: Yes Line secured with sutures: Yes Central line post-insertion: Blood return from lumens, Biopatch applied, Sutured , Sterile dressing applied, Position confirmed w/ CXR Number of attempts: 1 Complications: No Critical Care Note - Critical Care Note Total time excluding time spent on procedures (mins): 60 Comments: Hypotension, sepsis, altered mental status Discharge - Discharge Clinical Impression: Sepsis secondary to UTI, Hyponatremia Acute renal failure (ARF) Qualifiers: Acute renal failure type: unspecified Qualified Code(s): N17.9 - Acute kidney failure, unspecified Condition: Poor Disposition: ADMITTED INPATIENT Admitting Provider: [facility] Unit Admitted: ICU
[2018-03-05] MEDS ORDERED: NORMAL SALINE 1000 ML 1,000 ML IV PRN (21:49)
[2018-03-05 21:56] LABS: HEMATOCRIT 31.7 % (36.0-47.0); MEAN CORPUSCULAR HEMOGLOBIN 29.7 pg (27.0-33.4); MEAN CORPUSCULAR HGB CONC 34.6 g/dL (32.0-36.0); MEAN CORPUSCULAR VOLUME 86 fl (80-97); PLATELET COUNT 130 10^3/uL (150-450); RED BLOOD COUNT 3.69 10^6/uL (3.72-5.28); RED CELL DISTRIBUTION WIDTH 16.6 % (11.5-14.0); WHITE BLOOD COUNT 25.3 10^3/uL (4.0-10.5)
[2018-03-05 22:12] LABS: ABSOLUTE LYMPHOCYTES# (MANUAL) 0.5 10^3/uL (0.5-4.7); ABSOLUTE MONOCYTES # (MANUAL) 1.5 10^3/uL (0.1-1.4); ABSOLUTE NEUTROPHILS# (MANUAL) 23.3 10^3/uL (1.7-8.2); BASOPHILS % (MANUAL) 0 % (0-2); EOSINOPHILS % (MANUAL) 0 % (0-6); LYMPHOCYTES % (MANUAL) 2 % (13-45); MONOCYTES % (MANUAL) 6 % (3-13); SEGMENTED NEUTROPHILS % (MAN) 92 % (42-78); TOTAL CELLS COUNTED 100
[2018-03-05 22:13] LABS: ANISOCYTOSIS 1+; PLATELET COMMENT DECREASED; PLATELET LARGE PRESENT
[2018-03-05 22:19] LABS: CREATINE KINASE MB 1.27 ng/mL (<4.55); OVALOCYTES SLIGHT; POIKILOCYTOSIS SLIGHT; TARGET CELLS SLIGHT; TROPONIN I 0.018 ng/mL
--- NOTE | 2018-03-05 22:35 | RADIOLOGY REPORT (SQ) ---
EXAM DESCRIPTION: XR CHEST 1 VIEW COMPLETED DATE/TME: 03/05/2018 21:49 CLINICAL HISTORY: 57 years Female, sob COMPARISON:01/03/2018 NUMBER OF VIEWS/TECHNIQUE: 1/AP FINDINGS: Increased lung volume, clear parenchyma, normal cardiac silhouette, atherosclerosis, and intact bony thorax. IMPRESSION: No acute cardiopulmonary findings.
[2018-03-05 23:37] LABS: ALANINE AMINOTRANSFERASE 33 U/L (9-52); ALBUMIN 3.1 g/dL (3.5-5.0); ALKALINE PHOSPHATASE 144 U/L (38-126); ASPARTATE AMINO TRANSFERASE 35 U/L (14-36); BILIRUBIN,DIRECT 1.3 mg/dL (0.0-0.4); BILIRUBIN,TOTAL 1.3 mg/dL (0.2-1.3); CALCIUM 8.8 mg/dL (8.4-10.2); CREATINE KINASE 86 U/L (30-135); GLUCOSE 107 mg/dL (75-110); TOTAL PROTEIN 5.7 g/dL (6.3-8.2)
--- NOTE | 2018-03-05 23:43 | RADIOLOGY REPORT (SQ) ---
EXAM DESCRIPTION: XR CHEST 1 VIEW COMPLETED DATE/TME: 03/05/2018 23:19 CLINICAL HISTORY: Shortness of breath. 57 years Female, line placement COMPARISON: Same day. NUMBER OF VIEWS/TECHNIQUE: 1/AP FINDINGS: Clear lungs of adequate volume, and normal cardiac silhouette. Adequate appearing right jugular central line. No pneumothorax. Stable bony thorax. Atherosclerosis. IMPRESSION: Interval line/tube modification.
[2018-03-05 23:52] LABS: PROTHROMBIN TIME 13.7 SEC (11.4-15.4)
[2018-03-05 23:53] LABS: PARTIAL THROMBOPLASTIN TIME 31.8 SEC (23.5-35.8)
[2018-03-05] MEDS ORDERED: PIPERACILLIN/TAZOBACTAM 3.375 GM VIAL IV PRN (23:54)
[2018-03-05] MEDS: PIPERACILLIN SODIUM/TAZOBACTAM 3.375 GM in NORMAL SALINE 100 ML IV SCH (23:59)
[2018-03-06] MEDS: PIPERACILLIN/TAZOBACTAM 3.375 GM VIAL IV ONE ×2 (00:01→00:04)
[2018-03-06] MEDS ORDERED: NOREPINEPHRINE BITARTRATE INJ/PF 4 MG/4 ML SDV IV ONE ×2 (00:08→00:38)
[2018-03-06 00:14] LABS: AMORPHOUS SEDIMENT,URINE TRACE /HPF; APPEARANCE,URINE TURBID; BILIRUBIN,URINE NEGATIVE (NEGATIVE); COLOR,URINE AMBER; GLUCOSE, URINE NEGATIVE (NEGATIVE); KETONES,URINE NEGATIVE (NEGATIVE); LEUKOCYTE ESTERASE,URINE LARGE (NEGATIVE); NITRITE,URINE NEGATIVE (NEGATIVE); PROTEIN,URINE 100 mg/dL (NEGATIVE); URINE SPECIFIC GRAVITY 1.011; UROBILINOGEN,URINE NEGATIVE mg/dL (<2.0)
[2018-03-06 00:33] LABS: BLOOD UREA NITROGEN 220 mg/dL (7-20)
[2018-03-06 00:39] LABS: FREE T4 (FREE THYROXINE) 0.28 ng/dL (0.78-2.19)
[2018-03-06 00:53] LABS: THYROID STIMULATING HORMONE 1.42 uIU/mL (0.47-4.68)
[2018-03-06] MEDS: PIPERACILLIN SODIUM/TAZOBACTAM 3.375 GM in NORMAL SALINE 100 ML IV SCH ×2 (00:53→06:34)
[2018-03-06 00:55] LABS: CARBON DIOXIDE 27 mmol/L (22-30); CHLORIDE 56 mmol/L (98-107)
[2018-03-06 00:58] LABS: ANION GAP 35 (5-19)
[2018-03-06 01:00] LABS: POTASSIUM 2.7 mmol/L (3.6-5.0); SODIUM 117.6 mmol/L (137-145)
[2018-03-06] MEDS: DEXTROSE 5%-WATER 250 ML with NOREPINEPHRINE BITARTRATE 4 MG IV PRN ×4 (01:04→10:50)
[2018-03-06 04:30] LABS: ARTERIAL BLOOD BASE EXCESS 4.8 mmol/L; ARTERIAL BLOOD H2CO3 1.47 mmol/L (1.05-1.35); ARTERIAL BLOOD HCO3 30.3 mmol/L (20-24); ARTERIAL BLOOD O2 SATURATION 98.3 % (94-98); ARTERIAL BLOOD PCO2 48.9 mmHg (35-45); ARTERIAL BLOOD PH 7.41 (7.35-7.45); ARTERIAL BLOOD PO2 117.8 mmHg (80-100); ARTERIAL BLOOD TOTAL CO2 31.8 mmol/L (21-25)
[2018-03-06 04:33] LABS: ARTERIAL BLOOD FIO2 2L
[2018-03-06] MEDS: HEPARIN SOD (PORCINE) 5,000 UNIT/ML 1 ML SYRINGE SUBCUT SCH ×3 (06:36→22:53)
[2018-03-06 06:40] LABS: HEMATOCRIT 28.9 % (36.0-47.0); HEMOGLOBIN 9.9 g/dL (12.0-15.5); MEAN CORPUSCULAR HEMOGLOBIN 29.7 pg (27.0-33.4); MEAN CORPUSCULAR HGB CONC 34.2 g/dL (32.0-36.0); MEAN CORPUSCULAR VOLUME 87 fl (80-97); PLATELET COUNT 135 10^3/uL (150-450); RED BLOOD COUNT 3.33 10^6/uL (3.72-5.28); RED CELL DISTRIBUTION WIDTH 16.1 % (11.5-14.0)
[2018-03-06 06:56] LABS: ALANINE AMINOTRANSFERASE 31 U/L (9-52); ALKALINE PHOSPHATASE 136 U/L (38-126); ASPARTATE AMINO TRANSFERASE 32 U/L (14-36); BILIRUBIN,DIRECT 1.2 mg/dL (0.0-0.4); BILIRUBIN,TOTAL 1.2 mg/dL (0.2-1.3); CALCIUM 8.4 mg/dL (8.4-10.2); GLUCOSE 172 mg/dL (75-110); TOTAL PROTEIN 5.5 g/dL (6.3-8.2)
[2018-03-06 07:00] LABS: ABSOLUTE MONOCYTES # (MANUAL) 0.3 10^3/uL (0.1-1.4); ABSOLUTE NEUTROPHILS# (MANUAL) 31.5 10^3/uL (1.7-8.2); BAND NEUTROPHILS % (MANUAL) 2 % (3-5); BASOPHILS % (MANUAL) 0 % (0-2); EOSINOPHILS % (MANUAL) 0 % (0-6); LYMPHOCYTES % (MANUAL) 3 % (13-45); MONOCYTES % (MANUAL) 1 % (3-13); SEGMENTED NEUTROPHILS % (MAN) 94 % (42-78); TOTAL CELLS COUNTED 100
[2018-03-06 07:02] LABS: ANISOCYTOSIS 1+; CARBON DIOXIDE 27 mmol/L (22-30); CHLORIDE 61 mmol/L (98-107); PLATELET CLUMPS PRESENT; PLATELET COMMENT DECREASED; TOXIC GRANULATION SLIGHT; TOXIC VACUOLATION PRESENT
[2018-03-06 07:07] LABS: BLOOD UREA NITROGEN 220 mg/dL (7-20)
[2018-03-06 07:47] LABS: POTASSIUM 2.7 mmol/L (3.6-5.0); SODIUM 119.7 mmol/L (137-145)
[2018-03-06 07:59] LABS: ANION GAP 32 (5-19)
--- NOTE | 2018-03-06 09:35 | EKG REPORT ---
SEVERITY:- NORMAL ECG - SINUS RHYTHM : Confirmed by: Kobe Pizarro 06-Mar-2018 09:34:04
[2018-03-06] MEDS ORDERED: POTASSIUM CHLORIDE 10 MEQ CAPSULE.ER PO SCH (10:00)
[2018-03-06] MEDS: NORMAL SALINE 1000 ML 1,000 ML IV PRN ×2 (10:31→17:49)
[2018-03-06] MEDS: POTASSIUM CHLORIDE 20 MEQ/15 ML UDCUP PO SCH ×2 (10:34→15:23)
[2018-03-06] MEDS: PIPERACILLIN SODIUM/TAZOBACTAM 2.25 GM in NORMAL SALINE 50 ML IV SCH ×2 (12:42→17:49)
[2018-03-06 18:17] LABS: CALCIUM 8.1 mg/dL (8.4-10.2); GLUCOSE 135 mg/dL (75-110)
--- NOTE | 2018-03-06 18:18 | PDOC H&P ---
History of Present Illness Admission Date/PCP: 03/05/18 23:46 PRECIOUS BRUMFIELD MD History of Present Illness: BRYON BONILLA is a 57 year old female, she is a resident of the prison at [facility], I received a call from the prison staff that patient was stuporous, she has indwelling Tenorio catheter, the prison staff stated that the urine was very cloudy, suspicious for UTI. I advised the nursing most to call the blood for CBC and basic metabolic panel, the blood work demonstrated severe leukocytosis, severe hyponatremia, acute kidney injury, she was then referred to the emergency room for further evaluation and management. 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 In the emergency room she was started on fluid resuscitation, intravenous norepinephrine infusion, broad-spectrum antibiotic with Zosyn. There was associated acute kidney injury the BUN is 220, creatinine 5.29. I spoke to the patient and POA she stated that patient want to be DNR, she does not want any mechanical ventilation, chest compression. The last time she was in the hospital she required mechanical ventilation, she also had colonoscopy done at the time. She also has passage of melanotic stool Past Medical History Cardiac Medical History: Reports: Hypertension Pulmonary Medical History: Reports: Asthma, Bronchitis, Chronic Obstructive Pulmonary Disease (COPD), Pneumonia Neurological Medical History: Reports: Seizures Endocrine Medical History: Reports: Diabetes Mellitus Type 2 GI Medical History: Reports: Gastroesophageal Reflux Disease, Hiatal Hernia Musculoskeltal Medical History: Reports: Arthritis Psychiatric Medical History: Reports: Depression, Schizoaffective Disorder Past Surgical History Past Surgical History: Reports: Appendectomy, Section, Cholecystectomy , Hysterectomy, Other - Nate fundoplication, ventral herniorraphy 15 yrs ago Social History Lives with: Usp Smoking Status: Former Smoker Frequency of Alcohol Use: None Hx Recreational Drug Use: No Drugs: None Hx Prescription Drug Abuse: No Family History Family History: CAD, COPD, Hypertension, Malignancy Parental Family History Reviewed: Yes Children Family History Reviewed: Yes Sibling(s) Family History Reviewed.: Yes Medication/Allergy Home Medications: Acetaminophen [Tylenol] 650 mg PO Q4HP PRN 03/06/18 Amlodipine Besylate [Norvasc 2.5 mg Tablet] 2.5 mg PO DAILY 03/06/18 Atorvastatin Calcium [Lipitor 40 mg Tablet] 40 mg PO DAILY 03/06/18 Benzonatate [Tessalon Perles 100 mg Capsule] 100 mg PO Q8HP PRN 03/06/18 Bethanechol Chloride 10 mg PO QAM 03/06/18 Bumetanide [Bumex 1 mg Tablet] 1 mg PO Q12 03/06/18 Buspirone HCl [Buspar 15 mg Tablet] 7.5 mg PO BID 03/06/18 Dicyclomine HCl [Bentyl 10 mg Capsule] 10 mg PO Q8 03/06/18 Docusate Sodium [Colace] 100 mg PO DAILY 03/06/18 Ferrous Sulfate 324 mg PO BID 03/06/18 Fluticasone Propionate [Flonase Nasal [place] 50 Mcg/[place] 16 gm] 1 spray NASL DAILY 03/06/18 Fluticasone/Salmeterol [Advair 250-50 Diskus 14 Dose/Diskus] 1 inh IH Q12 Gabapentin [Neurontin 100 mg Capsule] 100 mg PO Q8 03/06/18 Insulin Regular, Human [Humulin R (Pyxis) Insulin 100 Unit/ml 3Ml] 0 unit SUBCUT .SLD SCALE 03/06/18 Ipratropium/Albuterol Sulfate [Duoneb 3 ml Ampul] 3 ml NEB RTTID 03/06/18 Levothyroxine Sodium [Synthroid 0.025 mg Tablet] 25 mcg PO Q6AM 03/06/18 Montelukast Sodium [Singulair 10 mg Tablet] 10 mg PO DAILY 03/06/18 Omeprazole Magnesium [Prilosec Otc] 40 mg PO DAILY 03/06/18 Ondansetron HCl [Zofran 4 mg Tablet] 1 tab PO Q6HP PRN 03/06/18 Quetiapine Fumarate [Seroquel 100 mg Tablet] 150 mg PO Q12 03/06/18 Quetiapine Fumarate [Seroquel] 400 mg PO QHS 03/06/18 Roflumilast [Daliresp 500 mcg Tablet] 500 mcg PO DAILY 03/06/18 Sennosides/Docusate 8.6-50 mg [Senna Plus Tablet] 1 tab PO QHS 03/06/18 Sertraline HCl [Zoloft 50 mg Tablet] 50 mg PO QAM 03/06/18 Simethicone [Gas Relief 80] 80 mg PO Q8 03/06/18 Tramadol HCl [Ultram 50 mg Tablet] 50 mg PO Q8HP PRN 03/06/18 Umeclidinium [place] [Incruse Ellipta] 1 puff IH DAILY 03/06/18 Zolpidem Tartrate [Ambien 5 mg Tablet] 5 mg PO QHS 03/06/18 Allergies/Adverse Reactions: clarithromycin [From Biaxin] Allergy (Severe, Verified 12/26/17 19:20) TONGUE/THROAT SWELLING furosemide [From Lasix] Allergy (Intermediate, Verified 12/26/17 19:20) UNSURE venlafaxine HCl [From Effexor] Allergy (Intermediate, Verified 12/26/17 19:20) MUSCLE WEAKNESS adhesive tape Allergy (Verified 12/26/17 19:20) RASH divalproex sodium [From Depakote] Allergy (Verified 12/26/17 19:20) UNSURE Review of Systems ROS unobtainable: Due to mental status Physical Exam Vital Signs: Temp Pulse Resp BP Pulse Ox 97.5 F 72 13 110/64 100 03/06/18 17:52 03/06/18 17:52 03/06/18 17:52 03/06/18 17:52 03/06/18 17:52 Intake & Output 03/05/18 03/06/18 03/07/18 06:59 06:59 06:59 Intake Total 2404 Output Total 1250 Balance 1154 Weight 59.7 kg General appearance: PRESENT: mild distress Eye exam: PRESENT: PERRLA Respiratory exam: PRESENT: decreased breath sounds Cardiovascular exam: PRESENT: +S1, +S2 GI/Abdominal exam: PRESENT: soft Neurological exam: PRESENT: altered Results Laboratory Results: 03/06/18 06:18 03/05/18 03/06/18 03/06/18 23:50 04:17 06:18 WBC 32.8 H* RBC 3.33 L Hgb 9.9 L Hct 28.9 L MCV 87 MCH 29.7 MCHC 34.2 RDW 16.1 H Plt Count 135 L Seg Neutrophils % Not Reportable Lymphocytes % Not Reportable Monocytes % Not Reportable Eosinophils % Not Reportable Basophils % Not Reportable Absolute Neutrophils Not Reportable Absolute Lymphocytes Not Reportable Absolute Monocytes Not Reportable Absolute Eosinophils Not Reportable Absolute Basophils Not Reportable Carbonic Acid 1.47 H HCO3/H2CO3 Ratio 20:1 ABG pH 7.41 ABG pCO2 48.9 H ABG pO2 117.8 H ABG HCO3 30.3 H ABG O2 Saturation 98.3 H ABG Base Excess 4.8 FiO2 2L Sodium Potassium Chloride Carbon Dioxide Anion Gap BUN Creatinine Est GFR ( Amer) Est GFR (Non-Af Amer) Glucose Calcium Total Bilirubin AST ALT Alkaline Phosphatase Total Protein Albumin Urine Color JONES Urine Appearance TURBID Urine pH 5.0 Ur Specific [place] 1.011 Urine Protein 100 H Urine Glucose (UA) NEGATIVE Urine Ketones NEGATIVE Urine Blood LARGE H Urine Nitrite NEGATIVE Ur Leukocyte Esterase LARGE H Urine WBC (Auto) >182 Urine RBC (Auto) 30 Stool Occult Blood 03/06/18 03/06/18 06:18 15:50 WBC RBC Hgb Hct MCV MCH MCHC RDW Plt Count Seg Neutrophils % Lymphocytes % Monocytes % Eosinophils % Basophils % Absolute Neutrophils Absolute Lymphocytes Absolute Monocytes Absolute Eosinophils Absolute Basophils Carbonic Acid HCO3/H2CO3 Ratio ABG pH ABG pCO2 ABG pO2 ABG HCO3 ABG O2 Saturation ABG Base Excess FiO2 Sodium 119.7 L* Potassium 2.7 L* Chloride 61 L Carbon Dioxide 27 Anion Gap 32 H BUN 220 H Creatinine 4.58 H Est GFR ( Amer) 12 L Est GFR (Non-Af Amer) 10 L Glucose 172 H Calcium 8.4 Total Bilirubin 1.2 AST 32 ALT 31 Alkaline Phosphatase 136 H Total Protein 5.5 L Albumin 3.0 L Urine Color Urine Appearance Urine pH Ur Specific [place] Urine Protein Urine Glucose (UA) Urine Ketones Urine Blood Urine Nitrite Ur Leukocyte Esterase Urine WBC (Auto) Urine RBC (Auto) Stool Occult Blood POSITIVE Impressions: Chest X-Ray 03/05/18 23:19 IMPRESSION: Interval line/tube modification. Assessment & Plan - Diagnosis (1) Septic shock Is this a current diagnosis for this admission?: Yes Plan: Patient in septic shock,, continue norepinephrine, normal saline patient condition is critical (2) Acute kidney injury Is this a current diagnosis for this admission?: Yes Plan: Hydrate vigorously (3) Hyponatremia Is this a current diagnosis for this admission?: Yes Plan: This is related to the acute kidney injury (4) Gram negative septicemia Is this a current diagnosis for this admission?: Yes (5) Hypotension Qualifiers: Hypotension type: unspecified hypotension type Qualified Code(s): I95.9 - Hypotension, unspecified (6) Gastrointestinal hemorrhage Qualifiers: GI bleed type/associated pathology: unspecified gastrointestinal hemorrhage type Qualified Code(s): K92.2 - Gastrointestinal hemorrhage, unspecified Is this a current diagnosis for this admission?: Yes Plan: This is most likely stress related. start Protonix (7) Urinary tract infection associated with indwelling urethral catheter Qualifiers: Encounter type: initial encounter Qualified Code(s): T83.511A - Infection and inflammatory reaction due to indwelling urethral catheter, initial encounter ; N39.0 - Urinary tract infection, site not specified; N39.0 - Urinary tract infection, site not specified Is this a current diagnosis for this admission?: Yes - Time Time Spent: Greater than 70 Minutes
[2018-03-06 18:23] LABS: CARBON DIOXIDE 27 mmol/L (22-30); CHLORIDE 76 mmol/L (98-107); SODIUM 126.6 mmol/L (137-145)
[2018-03-06 18:38] LABS: HEMATOCRIT 26.2 % (36.0-47.0); HEMOGLOBIN 8.8 g/dL (12.0-15.5); MEAN CORPUSCULAR HEMOGLOBIN 29.7 pg (27.0-33.4); MEAN CORPUSCULAR HGB CONC 33.7 g/dL (32.0-36.0); MEAN CORPUSCULAR VOLUME 88 fl (80-97); PLATELET COUNT 106 10^3/uL (150-450); RED BLOOD COUNT 2.97 10^6/uL (3.72-5.28); WHITE BLOOD COUNT 24.8 10^3/uL (4.0-10.5)
[2018-03-06 18:53] LABS: ANION GAP 24 (5-19); POTASSIUM 3.7 mmol/L (3.6-5.0)
[2018-03-06 18:54] LABS: BLOOD UREA NITROGEN 200 mg/dL (7-20)
[2018-03-06] MEDS: PANTOPRAZOLE SODIUM 40 MG VIAL IV SCH (22:52)
[2018-03-07] MEDS: PIPERACILLIN SODIUM/TAZOBACTAM 2.25 GM in NORMAL SALINE 50 ML IV SCH ×4 (00:18→21:12)
[2018-03-07] MEDS: HEPARIN SOD (PORCINE) 5,000 UNIT/ML 1 ML SYRINGE SUBCUT SCH ×3 (06:11→21:13)
[2018-03-07 06:46] LABS: ALANINE AMINOTRANSFERASE 29 U/L (9-52); ALBUMIN 2.5 g/dL (3.5-5.0); ALKALINE PHOSPHATASE 110 U/L (38-126); ASPARTATE AMINO TRANSFERASE 28 U/L (14-36); BILIRUBIN,DIRECT 0.8 mg/dL (0.0-0.4); BILIRUBIN,TOTAL 0.8 mg/dL (0.2-1.3); CALCIUM 8.1 mg/dL (8.4-10.2); GLUCOSE 108 mg/dL (75-110)
[2018-03-07 06:47] LABS: HEMATOCRIT 26.4 % (36.0-47.0); HEMOGLOBIN 8.8 g/dL (12.0-15.5); MEAN CORPUSCULAR HEMOGLOBIN 29.8 pg (27.0-33.4); MEAN CORPUSCULAR HGB CONC 33.3 g/dL (32.0-36.0); MEAN CORPUSCULAR VOLUME 89 fl (80-97); PLATELET COUNT 138 10^3/uL (150-450); RED BLOOD COUNT 2.96 10^6/uL (3.72-5.28); RED CELL DISTRIBUTION WIDTH 16.2 % (11.5-14.0); WHITE BLOOD COUNT 22.4 10^3/uL (4.0-10.5)
[2018-03-07 06:51] LABS: CARBON DIOXIDE 28 mmol/L (22-30); CHLORIDE 84 mmol/L (98-107); SODIUM 133.6 mmol/L (137-145)
[2018-03-07 06:54] LABS: ANION GAP 22 (5-19)
[2018-03-07 06:55] LABS: POTASSIUM 2.9 mmol/L (3.6-5.0)
[2018-03-07 07:15] LABS: BLOOD UREA NITROGEN 177 mg/dL (7-20)
[2018-03-07 07:34] LABS: ABSOLUTE MONOCYTES # (MANUAL) 0.2 10^3/uL (0.1-1.4); ABSOLUTE NEUTROPHILS# (MANUAL) 22.2 10^3/uL (1.7-8.2); BAND NEUTROPHILS % (MANUAL) 3 % (3-5); BASOPHILS % (MANUAL) 0 % (0-2); EOSINOPHILS % (MANUAL) 0 % (0-6); HYPOCHROMASIA 1+; LYMPHOCYTES % (MANUAL) 0 % (13-45); METAMYELOCYTES % (MANUAL) 1 % (0); MONOCYTES % (MANUAL) 1 % (3-13); POLYCHROMASIA SLIGHT; SEGMENTED NEUTROPHILS % (MAN) 95 % (42-78); TOTAL CELLS COUNTED 100; TOXIC GRANULATION 2+
[2018-03-07 07:35] LABS: PLATELET COMMENT ADEQUATE
[2018-03-07 10:06] LABS: WHITE BLOOD COUNT 32.8 10^3/uL (4.0-10.5)
[2018-03-07] MEDS: PANTOPRAZOLE SODIUM 40 MG VIAL IV SCH ×2 (11:14→21:12)
[2018-03-07 11:43] LABS: PATH REVIEW PATHOLOGIST REVIEWED
[2018-03-07] MEDS: POTASSIUM CHLORIDE 20 MEQ/50 ML RTU IV SCH ×3 (13:32→18:24)
[2018-03-07] MEDS: NORMAL SALINE 1000 ML 1,000 ML IV PRN ×2 (13:32→20:53)
[2018-03-07] MEDS ORDERED: (PENDING PHARMACY ID) (Buspirone Hcl [Buspar 15 Mg Tablet] 7.5 MG) PO SCH (18:00)
[2018-03-07] MEDS: SERTRALINE HCL 50 MG TABLET PO SCH (18:23)
--- NOTE | 2018-03-07 19:27 | PDOC PROGRESS REPORT ---
Subjective Progress Note for:: 03/07/18 Subjective:: Patient was seen by the bedside, condition discussed with family, she was admitted because of septic shock. She complain of nausea vomiting, not tolerating p.o. food Reason For Visit: SEPTIC SHOCK, HYPONATREMIA Physical Exam Vital Signs: Temp Pulse Resp BP Pulse Ox 96.8 F L 74 13 110/70 100 03/07/18 18:00 03/07/18 08:00 03/07/18 18:00 03/07/18 17:55 03/07/18 18:00 Intake & Output 03/06/18 03/07/18 03/08/18 06:59 06:59 06:59 Intake Total 2519 1479 Output Total 3000 1260 Balance -481 219 Weight 60.5 kg General appearance: PRESENT: no acute distress Eye exam: PRESENT: PERRLA Respiratory exam: PRESENT: decreased breath sounds Cardiovascular exam: PRESENT: +S1, +S2 GI/Abdominal exam: PRESENT: soft Neurological exam: PRESENT: alert Results Laboratory Results: 03/07/18 05:15 03/07/18 05:15 03/06/18 03/07/18 03/07/18 06:18 05:15 05:15 WBC 32.8 H* 22.4 H RBC 2.96 L Hgb 8.8 L Hct 26.4 L MCV 89 MCH 29.8 MCHC 33.3 RDW 16.2 H Plt Count 138 L Seg Neutrophils % Not Reportable Lymphocytes % Not Reportable Monocytes % Not Reportable Eosinophils % Not Reportable Basophils % Not Reportable Absolute Neutrophils Not Reportable Absolute Lymphocytes Not Reportable Absolute Monocytes Not Reportable Absolute Eosinophils Not Reportable Absolute Basophils Not Reportable Sodium 133.6 L Potassium 2.9 L* Chloride 84 L Carbon Dioxide 28 Anion Gap 22 H BUN 177 H D Creatinine 3.34 H Est GFR ( Amer) 17 L Est GFR (Non-Af Amer) 14 L Glucose 108 Calcium 8.1 L Total Bilirubin 0.8 AST 28 ALT 29 Alkaline Phosphatase 110 Total Protein 5.0 L Albumin 2.5 L Impressions: Chest X-Ray 03/05/18 23:19 IMPRESSION: Interval line/tube modification. Assessment & Plan - Diagnosis (1) Septic shock Is this a current diagnosis for this admission?: Yes Plan: Patient continues to require intravenous vasopressin, norepinephrine (2) Acute kidney injury Is this a current diagnosis for this admission?: Yes Plan: Acute kidney injury continues to improve, continue present infusion rate, she had a massive acute kidney injury mostly from prerenal azotemia (3) Hyponatremia Is this a current diagnosis for this admission?: Yes Plan: Improved with hydration (4) Gram negative septicemia Is this a current diagnosis for this admission?: Yes Plan: She has gram-negative septicemia, presently on IV Zosyn, continue same treatment , specific pathogen yet to be determined (5) Hypotension Qualifiers: Hypotension type: unspecified hypotension type Qualified Code(s): I95.9 - Hypotension, unspecified Is this a current diagnosis for this admission?: Yes (6) Gastrointestinal hemorrhage Qualifiers: GI bleed type/associated pathology: unspecified gastrointestinal hemorrhage type Qualified Code(s): K92.2 - Gastrointestinal hemorrhage, unspecified Is this a current diagnosis for this admission?: Yes (7) Urinary tract infection associated with indwelling urethral catheter Qualifiers: Encounter type: initial encounter Qualified Code(s): T83.511A - Infection and inflammatory reaction due to indwelling urethral catheter, initial encounter ; N39.0 - Urinary tract infection, site not specified; N39.0 - Urinary tract infection, site not specified Is this a current diagnosis for this admission?: Yes
[2018-03-07] MEDS: QUETIAPINE FUMARATE 100 MG TABLET PO SCH (21:11)
[2018-03-07] MEDS ORDERED: (PENDING PHARMACY ID) (Quetiapine Fumarate [Seroquel] 400 MG) PO SCH (22:00)
[2018-03-07] MEDS: DEXTROSE 5%-WATER 250 ML with NOREPINEPHRINE BITARTRATE 4 MG IV PRN ×2 (22:11)
[2018-03-08] MEDS: POTASSIUM CHLORIDE 20 MEQ/50 ML RTU IV SCH ×4 (02:37→23:15)
[2018-03-08] MEDS: NORMAL SALINE 1000 ML 1,000 ML IV PRN ×3 (03:54→21:12)
[2018-03-08] MEDS: HEPARIN SOD (PORCINE) 5,000 UNIT/ML 1 ML SYRINGE SUBCUT SCH ×2 (05:58→13:34)
[2018-03-08] MEDS: PIPERACILLIN SODIUM/TAZOBACTAM 2.25 GM in NORMAL SALINE 50 ML IV SCH (05:58)
[2018-03-08 06:15] LABS: HEMATOCRIT 24.8 % (36.0-47.0); HEMOGLOBIN 8.1 g/dL (12.0-15.5); MEAN CORPUSCULAR HEMOGLOBIN 29.9 pg (27.0-33.4); MEAN CORPUSCULAR HGB CONC 32.7 g/dL (32.0-36.0); MEAN CORPUSCULAR VOLUME 92 fl (80-97); PLATELET COUNT 126 10^3/uL (150-450); RED BLOOD COUNT 2.71 10^6/uL (3.72-5.28); RED CELL DISTRIBUTION WIDTH 16.4 % (11.5-14.0); WHITE BLOOD COUNT 19.8 10^3/uL (4.0-10.5)
[2018-03-08 06:28] LABS: ALANINE AMINOTRANSFERASE 20 U/L (9-52); ALBUMIN 2.3 g/dL (3.5-5.0); ALKALINE PHOSPHATASE 86 U/L (38-126); ANION GAP 14 (5-19); ASPARTATE AMINO TRANSFERASE 22 U/L (14-36); BILIRUBIN,DIRECT 0.4 mg/dL (0.0-0.4); BILIRUBIN,TOTAL 0.4 mg/dL (0.2-1.3); BLOOD UREA NITROGEN 119 mg/dL (7-20); CALCIUM 8.1 mg/dL (8.4-10.2); CARBON DIOXIDE 26 mmol/L (22-30); CHLORIDE 100 mmol/L (98-107); GLUCOSE 250 mg/dL (75-110); SODIUM 139.7 mmol/L (137-145); TOTAL PROTEIN 4.6 g/dL (6.3-8.2)
[2018-03-08 06:32] LABS: ABSOLUTE LYMPHOCYTES# (MANUAL) 0.6 10^3/uL (0.5-4.7); ABSOLUTE NEUTROPHILS# (MANUAL) 18.2 10^3/uL (1.7-8.2); BASOPHILS % (MANUAL) 0 % (0-2); EOSINOPHILS % (MANUAL) 0 % (0-6); LYMPHOCYTES % (MANUAL) 3 % (13-45); MONOCYTES % (MANUAL) 5 % (3-13); SEGMENTED NEUTROPHILS % (MAN) 92 % (42-78); TOTAL CELLS COUNTED 100
[2018-03-08 06:34] LABS: ANISOCYTOSIS 1+; HELMET CELLS 1+; OVALOCYTES 2+; POIKILOCYTOSIS 2+; STOMATOCYTES 1+; TEAR DROP CELLS 1+; TOXIC GRANULATION 1+
[2018-03-08 06:35] LABS: PLATELET COMMENT ADEQUATE
[2018-03-08 06:47] LABS: POTASSIUM 3.8 mmol/L (3.6-5.0)
[2018-03-08] MEDS: QUETIAPINE FUMARATE 100 MG TABLET PO SCH ×3 (12:00→21:09)
[2018-03-08] MEDS: SERTRALINE HCL 50 MG TABLET PO SCH (12:15)
[2018-03-08] MEDS: PANTOPRAZOLE SODIUM 40 MG VIAL IV SCH ×2 (12:15→21:10)
--- NOTE | 2018-03-08 12:52 | PDOC PROGRESS REPORT ---
Subjective Progress Note for:: 03/08/18 Subjective:: Patient was admitted for the septic shock and acute renal failure and a possible GI bleed Patient is currently doing fair Alert awake but still confused Patient is currently a DNR Patient still have a lot of loose stools Patient's urine culture and blood cultures sensitivity back which grew out the ESBL sensitive to the entrepenam Reason For Visit: SEPTIC SHOCK, HYPONATREMIA Physical Exam Vital Signs: Temp Pulse Resp BP Pulse Ox 97.5 F 86 10 L 124/71 100 03/08/18 10:00 03/08/18 10:00 03/08/18 10:32 03/08/18 10:32 03/08/18 10:32 Intake & Output 03/07/18 03/08/18 03/09/18 06:59 06:59 06:59 Intake Total 2519 3769 1050 Output Total 3000 3760 750 Balance -481 9 300 Weight 60.5 kg 61.1 kg General appearance: PRESENT: no acute distress Head exam: PRESENT: atraumatic, normocephalic Eye exam: PRESENT: conjunctiva pink, EOMI, PERRLA. ABSENT: scleral icterus Ear exam: PRESENT: normal external ear exam Mouth exam: PRESENT: moist, tongue midline Neck exam: PRESENT: full ROM. ABSENT: carotid bruit, JVD, lymphadenopathy, thyromegaly Respiratory exam: PRESENT: clear to auscultation wilfredo Cardiovascular exam: PRESENT: RRR. ABSENT: diastolic murmur, rubs, systolic murmur Pulses: PRESENT: normal dorsalis pedis pul, +2 pedal pulses bilateral Vascular exam: PRESENT: normal capillary refill GI/Abdominal exam: PRESENT: normal bowel sounds, soft. ABSENT: distended, guarding, mass, organolmegaly, rebound, tenderness Rectal exam: PRESENT: deferred Extremities exam: ABSENT: pedal edema Neurological exam: PRESENT: alert, altered, awake. ABSENT: motor sensory deficit Psychiatric exam: PRESENT: appropriate affect, normal mood. ABSENT: homicidal ideation, suicidal ideation Skin exam: PRESENT: dry, intact, warm. ABSENT: cyanosis, rash Results Laboratory Results: 03/08/18 05:55 03/07/18 03/07/18 03/08/18 23:18 23:40 05:55 WBC 19.8 H RBC 2.71 L Hgb 8.1 L Hct 24.8 L MCV 92 MCH 29.9 MCHC 32.7 RDW 16.4 H Plt Count 126 L Seg Neutrophils % Not Reportable Lymphocytes % Not Reportable Monocytes % Not Reportable Eosinophils % Not Reportable Basophils % Not Reportable Absolute Neutrophils Not Reportable Absolute Lymphocytes Not Reportable Absolute Monocytes Not Reportable Absolute Eosinophils Not Reportable Absolute Basophils Not Reportable Sodium Potassium 2.8 L* Chloride Carbon Dioxide Anion Gap BUN Creatinine Est GFR ( Amer) Est GFR (Non-Af Amer) Glucose Calcium Magnesium 1.8 Total Bilirubin AST ALT Alkaline Phosphatase Total Protein Albumin 03/08/18 05:55 WBC RBC Hgb Hct MCV MCH MCHC RDW Plt Count Seg Neutrophils % Lymphocytes % Monocytes % Eosinophils % Basophils % Absolute Neutrophils Absolute Lymphocytes Absolute Monocytes Absolute Eosinophils Absolute Basophils Sodium 139.7 Potassium 3.8 D Chloride 100 Carbon Dioxide 26 Anion Gap 14 BUN 119 H Creatinine 2.10 H Est GFR ( Amer) 30 L Est GFR (Non-Af Amer) 24 L Glucose 250 H Calcium 8.1 L Magnesium 1.6 Total Bilirubin 0.4 AST 22 ALT 20 Alkaline Phosphatase 86 Total Protein 4.6 L Albumin 2.3 L 03/05/18 23:50 Tenorio Catheter Urine Culture - Final Escherichia Coli Esbl Klebsiella Oxytoca-Esbl 03/06/18 00:52 Blood Blood Culture - Final Klebsiella Pneumoniae Impressions: Chest X-Ray 03/05/18 23:19 IMPRESSION: Interval line/tube modification. Assessment & Plan - Diagnosis (1) Acute renal failure (ARF) Qualifiers: Acute renal failure type: unspecified Qualified Code(s): N17.9 - Acute kidney failure, unspecified Is this a current diagnosis for this admission?: Yes Plan: Continues to IV fluid due to the septic shock urinary tract infections (2) Gastrointestinal hemorrhage Qualifiers: GI bleed type/associated pathology: unspecified gastrointestinal hemorrhage type Qualified Code(s): K92.2 - Gastrointestinal hemorrhage, unspecified Is this a current diagnosis for this admission?: Yes Plan: Currently all stable patient had a recent scope was done continues the Protonix no active bleeding is not is as needed blood transfusions (3) Gram negative septicemia Is this a current diagnosis for this admission?: Yes Plan: Start the patient on entrepenam consult the ID for the ESBL (4) Hypotension Qualifiers: Hypotension type: unspecified hypotension type Qualified Code(s): I95.9 - Hypotension, unspecified Is this a current diagnosis for this admission?: Yes Plan: Currently on IV fluid and the pressure support (5) Septic shock Is this a current diagnosis for this admission?: Yes Plan: Due to the gram-negative organism (6) Altered mental status Qualifiers: Altered mental status type: coma Coma depth: [place] coma 3-8 Coma timing : at arrival to emergency department Qualified Code(s): R40.2432 - [place] coma scale score 3-8, at arrival to emergency department Is this a current diagnosis for this admission?: Yes Plan: Due to the above conditions (7) Anemia Qualifiers: Anemia type: iron deficiency Is this a current diagnosis for this admission?: Yes (8) COPD (chronic obstructive pulmonary disease) Qualifiers: COPD type: chronic bronchitis Is this a current diagnosis for this admission?: Yes (10) Urinary tract infection Qualifiers: Urinary tract infection type: site unspecified Is this a current diagnosis for this admission?: Yes - Time Time Spent with patient: 25-34 minutes Total Critical Time (Minutes): 25 Medications reviewed and adjusted accordingly: Yes Anticipated discharge: SNF, Other Within: Other - Inpatient Certification Based on my medical assessment, after consideration of the patient's comorbidities, presenting symptoms, or acuity I expect that the services needed warrant INPATIENT care.: Yes I certify that my determination is in accordance with my understanding of Medicare's requirements for reasonable and necessary INPATIENT services [42 CFR 412.3e].: Yes Medical Necessity: Need Close Monitoring Due to Risk of Patient Decompensation, Need For IV Fluids, Need for IV Antibiotics Post Hospital Care: D/C Chief Of Pediatric Urology Documentation - Plan Summary Plan Summary: Continue IV fluid Continues to IV antibiotic Consult ID Poor prognosis
[2018-03-08] MEDS: ERTAPENEM SODIUM 1 GM in NORMAL SALINE 50 ML IV SCH (14:43)
[2018-03-08 19:44] LABS: ANION GAP 14 (5-19); CARBON DIOXIDE 25 mmol/L (22-30); CHLORIDE 104 mmol/L (98-107); GLUCOSE 187 mg/dL (75-110); SODIUM 143.3 mmol/L (137-145)
[2018-03-08 20:05] LABS: BLOOD UREA NITROGEN 98 mg/dL (7-20)
[2018-03-08] MEDS ORDERED: POTASSIUM CHLORIDE 20 MEQ/50 ML RTU IV SCH (20:30)
[2018-03-08] MEDS: MAGNESIUM SULFATE 1 GM/D5W 100 ML IV SCH ×2 (21:10→22:18)
[2018-03-09] MEDS: POTASSIUM CHLORIDE 20 MEQ/50 ML RTU IV SCH ×2 (02:22→03:41)
[2018-03-09] MEDS: NORMAL SALINE 1000 ML 1,000 ML IV PRN ×2 (03:48→15:12)
[2018-03-09 05:34] LABS: HEMATOCRIT 22.5 % (36.0-47.0); MEAN CORPUSCULAR HGB CONC 32.5 g/dL (32.0-36.0); MEAN CORPUSCULAR VOLUME 92 fl (80-97); PLATELET COUNT 147 10^3/uL (150-450); RED BLOOD COUNT 2.44 10^6/uL (3.72-5.28); RED CELL DISTRIBUTION WIDTH 16.6 % (11.5-14.0); WHITE BLOOD COUNT 19.4 10^3/uL (4.0-10.5)
[2018-03-09 05:41] LABS: HEMOGLOBIN 7.3 g/dL (12.0-15.5)
[2018-03-09 06:43] LABS: ABSOLUTE LYMPHOCYTES# (MANUAL) 1.4 10^3/uL (0.5-4.7); ABSOLUTE MONOCYTES # (MANUAL) 0.8 10^3/uL (0.1-1.4); ABSOLUTE NEUTROPHILS# (MANUAL) 17.3 10^3/uL (1.7-8.2); BASOPHILS % (MANUAL) 0 % (0-2); EOSINOPHILS % (MANUAL) 0 % (0-6); LYMPHOCYTES % (MANUAL) 7 % (13-45); MONOCYTES % (MANUAL) 4 % (3-13); SEGMENTED NEUTROPHILS % (MAN) 89 % (42-78); TOTAL CELLS COUNTED 100
[2018-03-09 06:45] LABS: ANISOCYTOSIS 1+; POIKILOCYTOSIS 2+; TOXIC GRANULATION SLIGHT; TOXIC VACUOLATION PRESENT
[2018-03-09 06:46] LABS: HELMET CELLS 1+; OVALOCYTES 2+; PLATELET COMMENT ADEQUATE; SCHISTOCYTES 2+
[2018-03-09 06:48] LABS: ANION GAP 12 (5-19); CALCIUM 8.1 mg/dL (8.4-10.2); CARBON DIOXIDE 25 mmol/L (22-30); CHLORIDE 107 mmol/L (98-107); GLUCOSE 97 mg/dL (75-110); SODIUM 143.6 mmol/L (137-145)
[2018-03-09 06:58] LABS: BLOOD UREA NITROGEN 79 mg/dL (7-20)
[2018-03-09 07:00] LABS: POTASSIUM 4.5 mmol/L (3.6-5.0)
[2018-03-09] MEDS: PANTOPRAZOLE SODIUM 40 MG VIAL IV SCH ×2 (09:11→22:34)
[2018-03-09] MEDS: QUETIAPINE FUMARATE 100 MG TABLET PO SCH ×3 (09:12→22:34)
[2018-03-09] MEDS: SERTRALINE HCL 50 MG TABLET PO SCH (09:13)
--- NOTE | 2018-03-09 11:41 | PDOC PROGRESS REPORT ---
Subjective Progress Note for:: 03/09/18 Subjective:: Patient is feeling much better Patient's currently denied any chest pain denied any shortness of the breath Patient's family on the bedside Patient's hemoglobin is 7.3 Reason For Visit: SEPTIC SHOCK, HYPONATREMIA Physical Exam Vital Signs: Temp Pulse Resp BP Pulse Ox 97.5 F 92 15 125/68 98 03/09/18 10:00 03/09/18 10:00 03/09/18 10:00 03/09/18 10:00 03/09/18 10:00 Intake & Output 03/08/18 03/09/18 03/10/18 06:59 06:59 06:59 Intake Total 3769 3297 240 Output Total 3760 3645 585 Balance 9 -138 -345 Weight 61.1 kg 61.1 kg General appearance: PRESENT: no acute distress, well-developed, well-nourished Head exam: PRESENT: atraumatic, normocephalic Eye exam: PRESENT: conjunctiva pink, EOMI, PERRLA. ABSENT: scleral icterus Ear exam: PRESENT: normal external ear exam Mouth exam: PRESENT: moist, tongue midline Neck exam: PRESENT: full ROM. ABSENT: carotid bruit, JVD, lymphadenopathy, thyromegaly Respiratory exam: PRESENT: clear to auscultation wilfredo Cardiovascular exam: PRESENT: RRR. ABSENT: diastolic murmur, rubs, systolic murmur Pulses: PRESENT: normal dorsalis pedis pul, +2 pedal pulses bilateral Vascular exam: PRESENT: normal capillary refill GI/Abdominal exam: PRESENT: normal bowel sounds, soft. ABSENT: distended, guarding, mass, organolmegaly, rebound, tenderness Rectal exam: PRESENT: deferred Neurological exam: PRESENT: alert, awake, oriented to person, oriented to place , oriented to time, oriented to situation. ABSENT: motor sensory deficit Psychiatric exam: PRESENT: appropriate affect, normal mood. ABSENT: homicidal ideation, suicidal ideation Skin exam: PRESENT: dry, intact, warm. ABSENT: cyanosis, rash Results Laboratory Results: 03/09/18 05:16 03/09/18 05:16 03/08/18 03/08/18 03/09/18 12:15 18:50 05:16 WBC RBC Hgb Hct MCV MCH MCHC RDW Plt Count Seg Neutrophils % Lymphocytes % Monocytes % Eosinophils % Basophils % Absolute Neutrophils Absolute Lymphocytes Absolute Monocytes Absolute Eosinophils Absolute Basophils Sodium 143.3 143.6 Potassium 3.5 L 3.0 L* 4.5 D Chloride 104 107 Carbon Dioxide 25 25 Anion Gap 14 12 BUN 98 H D 79 H Creatinine 1.55 H 1.30 H Est GFR ( Amer) 42 L 51 L Est GFR (Non-Af Amer) 35 L 43 L Glucose 187 H 97 Calcium 8.0 L 8.1 L Magnesium 1.4 L 2.1 Blood Type Antibody Screen 03/09/18 03/09/18 05:16 06:22 WBC 19.4 H RBC 2.44 L Hgb 7.3 L Hct 22.5 L MCV 92 MCH 30.0 MCHC 32.5 RDW 16.6 H Plt Count 147 L Seg Neutrophils % Not Reportable Lymphocytes % Not Reportable Monocytes % Not Reportable Eosinophils % Not Reportable Basophils % Not Reportable Absolute Neutrophils Not Reportable Absolute Lymphocytes Not Reportable Absolute Monocytes Not Reportable Absolute Eosinophils Not Reportable Absolute Basophils Not Reportable Sodium Potassium Chloride Carbon Dioxide Anion Gap BUN Creatinine Est GFR ( Amer) Est GFR (Non-Af Amer) Glucose Calcium Magnesium Blood Type A POSITIVE Antibody Screen NEGATIVE 03/05/18 23:50 Tenorio Catheter Urine Culture - Final Escherichia Coli Esbl Klebsiella Oxytoca-Esbl 03/06/18 00:52 Blood Blood Culture - Final Klebsiella Pneumoniae Impressions: Chest X-Ray 03/05/18 23:19 IMPRESSION: Interval line/tube modification. Assessment & Plan - Diagnosis (1) Acute renal failure (ARF) Qualifiers: Acute renal failure type: unspecified Qualified Code(s): N17.9 - Acute kidney failure, unspecified Is this a current diagnosis for this admission?: Yes (2) Gastrointestinal hemorrhage Qualifiers: GI bleed type/associated pathology: unspecified gastrointestinal hemorrhage type Qualified Code(s): K92.2 - Gastrointestinal hemorrhage, unspecified Is this a current diagnosis for this admission?: Yes (3) Gram negative septicemia Is this a current diagnosis for this admission?: Yes (4) Hypotension Qualifiers: Hypotension type: unspecified hypotension type Qualified Code(s): I95.9 - Hypotension, unspecified Is this a current diagnosis for this admission?: Yes (5) Septic shock Is this a current diagnosis for this admission?: Yes (6) Altered mental status Qualifiers: Altered mental status type: coma Coma depth: [place] coma 3-8 Coma timing : at arrival to emergency department Qualified Code(s): R40.2432 - [place] coma scale score 3-8, at arrival to emergency department Is this a current diagnosis for this admission?: Yes (7) Anemia Qualifiers: Anemia type: iron deficiency Is this a current diagnosis for this admission?: Yes Plan: Transfuse 1 unit of blood blood (8) COPD (chronic obstructive pulmonary disease) Qualifiers: COPD type: chronic bronchitis Is this a current diagnosis for this admission?: Yes (10) Urinary tract infection Qualifiers: Urinary tract infection type: site unspecified Is this a current diagnosis for this admission?: Yes - Time Time Spent with patient: 15-24 minutes Medications reviewed and adjusted accordingly: Yes Anticipated discharge: Other Within: Other - Plan Summary Plan Summary: Continues to current medication discussed with the family on the bedside
[2018-03-09] MEDS: ERTAPENEM SODIUM 1 GM in NORMAL SALINE 50 ML IV SCH (14:30)
[2018-03-09 21:23] LABS: HEMATOCRIT 27.5 % (36.0-47.0); HEMOGLOBIN 9.2 g/dL (12.0-15.5); MEAN CORPUSCULAR HGB CONC 33.2 g/dL (32.0-36.0); MEAN CORPUSCULAR VOLUME 90 fl (80-97); PLATELET COUNT 143 10^3/uL (150-450); RED BLOOD COUNT 3.05 10^6/uL (3.72-5.28); RED CELL DISTRIBUTION WIDTH 17.1 % (11.5-14.0); WHITE BLOOD COUNT 21.2 10^3/uL (4.0-10.5)
[2018-03-09 21:40] LABS: ANION GAP 11 (5-19); CALCIUM 8.2 mg/dL (8.4-10.2); CARBON DIOXIDE 25 mmol/L (22-30); CHLORIDE 105 mmol/L (98-107); GLUCOSE 143 mg/dL (75-110); POTASSIUM 3.7 mmol/L (3.6-5.0); SODIUM 141.3 mmol/L (137-145)
[2018-03-09 21:44] LABS: ABSOLUTE LYMPHOCYTES# (MANUAL) 0.6 10^3/uL (0.5-4.7); ABSOLUTE MONOCYTES # (MANUAL) 0.4 10^3/uL (0.1-1.4); ABSOLUTE NEUTROPHILS# (MANUAL) 20.1 10^3/uL (1.7-8.2); BASOPHILS % (MANUAL) 0 % (0-2); EOSINOPHILS % (MANUAL) 0 % (0-6); LYMPHOCYTES % (MANUAL) 3 % (13-45); MONOCYTES % (MANUAL) 2 % (3-13); SEGMENTED NEUTROPHILS % (MAN) 95 % (42-78); TOTAL CELLS COUNTED 100
[2018-03-09 21:45] LABS: POLYCHROMASIA 1+
[2018-03-09 21:46] LABS: ANISOCYTOSIS 1+; PLATELET COMMENT ADEQUATE
[2018-03-09 21:49] LABS: BLOOD UREA NITROGEN 58 mg/dL (7-20)
[2018-03-10] MEDS: MAGNESIUM SULFATE 1 GM/D5W 100 ML IV SCH ×2 (00:20→01:45)
[2018-03-10] MEDS: NORMAL SALINE 1000 ML 1,000 ML IV PRN (06:15)
[2018-03-10 06:25] LABS: ANION GAP 11 (5-19); BLOOD UREA NITROGEN 49 mg/dL (7-20); CALCIUM 8.2 mg/dL (8.4-10.2); CARBON DIOXIDE 26 mmol/L (22-30); CHLORIDE 107 mmol/L (98-107); GLUCOSE 119 mg/dL (75-110); POTASSIUM 3.2 mmol/L (3.6-5.0); SODIUM 143.9 mmol/L (137-145)
[2018-03-10] MEDS: QUETIAPINE FUMARATE 100 MG TABLET PO SCH ×3 (08:15→22:25)
[2018-03-10] MEDS: SERTRALINE HCL 50 MG TABLET PO SCH (08:15)
[2018-03-10] MEDS: POTASSIUM CHLORIDE 20 MEQ/50 ML RTU IV SCH ×2 (08:20→10:52)
[2018-03-10] MEDS: PANTOPRAZOLE SODIUM 40 MG VIAL IV SCH ×2 (09:51→22:24)
[2018-03-10 10:32] LABS: HEMATOCRIT 26.3 % (36.0-47.0); HEMOGLOBIN 8.5 g/dL (12.0-15.5); MEAN CORPUSCULAR HEMOGLOBIN 29.7 pg (27.0-33.4); MEAN CORPUSCULAR HGB CONC 32.5 g/dL (32.0-36.0); MEAN CORPUSCULAR VOLUME 91 fl (80-97); PLATELET COUNT 151 10^3/uL (150-450); RED BLOOD COUNT 2.88 10^6/uL (3.72-5.28); RED CELL DISTRIBUTION WIDTH 17.2 % (11.5-14.0)
[2018-03-10] MEDS: RINGERS SOLUTION,LACTATED 1,000 ML IV PRN ×2 (11:37→23:07)
[2018-03-10 12:28] LABS: ABSOLUTE LYMPHOCYTES# (MANUAL) 1.1 10^3/uL (0.5-4.7); ABSOLUTE MONOCYTES # (MANUAL) 1.5 10^3/uL (0.1-1.4); ABSOLUTE NEUTROPHILS# (MANUAL) 18.5 10^3/uL (1.7-8.2); BASOPHILS % (MANUAL) 0 % (0-2); EOSINOPHILS % (MANUAL) 0 % (0-6); LYMPHOCYTES % (MANUAL) 5 % (13-45); MONOCYTES % (MANUAL) 7 % (3-13); SEGMENTED NEUTROPHILS % (MAN) 88 % (42-78); TOTAL CELLS COUNTED 100
[2018-03-10 12:31] LABS: ANISOCYTOSIS 1+; OVALOCYTES SLIGHT; TOXIC GRANULATION 1+; TOXIC VACUOLATION PRESENT
[2018-03-10 12:32] LABS: PLATELET COMMENT ADEQUATE; POIKILOCYTOSIS SLIGHT
[2018-03-10] MEDS: ERTAPENEM SODIUM 1 GM in NORMAL SALINE 50 ML IV SCH (13:22)
[2018-03-10] MEDS: NORMAL SALINE INJ/PF 0.9% 10 ML SDV IV PRN (13:23)
--- NOTE | 2018-03-10 17:57 | Progress Note ---
Provider Note Provider Note: ID Consult Note Asked to review patient's chart by Pharmacy. Pt not seen or examined. Reviewed VS, lab results, provider reports, imaging reports. Ms Garcia is a 57 year old female resident of [facility] who has PMH/PSH including COPD and urinary retention with indwelling Tenorio catheter. She presented on 03/05/18 to [facility] for complaints of abdominal pain and decreased level of consciousness. Pt was noted on exam to have lethargic appearance with dry mucous membranes, tenderness to palpation of her abdomen. She was admitted with septic shock and AYLA. Per H&P, pt was noted to have passage of melanotic stool. Initial labs were notable for leukocytosis of 32.8k, electrolyte abnormalities including hyponatremia and hypokalemia, markedly elevated BUN and creatinine. One set of blood cultures drawn on 03/05/18 did not show growth. The other set of blood cultures drawn an hour later on 03/06/18 showed growth of Klebsiella pneumoniae in one blood culture bottle (susceptible to all antibiotics tested except ampicillin). From the urine culture, >100k CFU ESBL E coli and 50-60k CFU Klebsiella oxytoca. Imaging studies included CXR that showed no acute cardiopulmonary process and CT scan of the abdomen/pelvis with no acute abnormality. Per most recent notes, pt has improved clinically. She is no longer on vasopressors. Pt was empirically treated with IV Zosyn since presentation, then switched to Invanz 1 g daily since 03/08/18. Impression/Recommendations sepsis due to Klebsiella pneumoniae bacteremia - This is difficult to attribute to a urinary source where the same organism was not isolated from the urine, but CT abdomen and CXR have not revealed another source, and pt has no localizing complaints or exam findings noted, and her presenting complaint of diffuse abdominal pain is not what would be typical for a urinary source (usually flank pain or suprapubic pain). Pt was noted to have diffuse abdominal pain and melanotic stool passage initially, and a GI tract source seems more likely, although no definite infectious etiology was visualized with CT abdomen. - The urinary isolates (different than what was found in her blood) are not clearly significant. These are more likely to be asymptomatic colonizers of the urine. - The patient could be treated with a combination of IV Rocephin 2 g daily and IV Flagyl 500 mg BID, instead of the broader spectrum agent IV ertapenem, to target a gut source. - Pt can complete the remainder of 10-14 days of treatment, depending on clinical response, with IV Rocephin + Flagyl or she can switch to PO at discharge as long as she is able to tolerate PO intake consistently. - PO options that could be explored when pt is approaching discharge are the combination of PO Bactrim 2 DS BID PO + Flagyl 500 mg BID PO or the combination of Cipro 500 mg BID + Flagyl 500 mg BID to complete the remainder of 10-14 days in total. If Cipro is used, home iron supplementation would need to be scheduled so that Cipro precedes the iron by at least 2 hours (should not be given concurrently). Navin Chew MD [facility] Infectious Diseases pager [phone]
--- NOTE | 2018-03-10 21:22 | PDOC PROGRESS REPORT ---
Subjective Progress Note for:: 03/10/18 Subjective:: Patient was seen by the bedside, she is more responsive today, the urine culture grew polymicrobial agent E. coli and Klebsiella species both ESBL species blood culture grew Klebsiella. The antibiotic was transitioned to ertapenem over the weekend. Patient will be downgraded to telemetry floor from ICU Reason For Visit: SEPTIC SHOCK, HYPONATREMIA Physical Exam Vital Signs: Temp Pulse Resp BP Pulse Ox 97.9 F 101 H 18 132/56 H 100 03/10/18 18:15 03/10/18 18:00 03/10/18 18:15 03/10/18 18:08 03/10/18 18:15 Intake & Output 03/09/18 03/10/18 03/11/18 06:59 06:59 06:59 Intake Total 3297 2690 410 Output Total 3435 2605 1515 Balance -138 85 -1105 Weight 61.1 kg 63.2 kg General appearance: PRESENT: no acute distress Eye exam: PRESENT: PERRLA Respiratory exam: PRESENT: clear to auscultation wilfredo Cardiovascular exam: PRESENT: +S1, +S2 GI/Abdominal exam: PRESENT: soft Neurological exam: PRESENT: alert Results Laboratory Results: 03/10/18 06:00 03/10/18 15:04 03/09/18 03/09/18 03/10/18 20:48 20:48 06:00 WBC 21.2 H RBC 3.05 L Hgb 9.2 L Hct 27.5 L MCV 90 MCH 30.0 MCHC 33.2 RDW 17.1 H Plt Count 143 L Seg Neutrophils % Not Reportable Lymphocytes % Not Reportable Monocytes % Not Reportable Eosinophils % Not Reportable Basophils % Not Reportable Absolute Neutrophils Not Reportable Absolute Lymphocytes Not Reportable Absolute Monocytes Not Reportable Absolute Eosinophils Not Reportable Absolute Basophils Not Reportable Sodium 141.3 143.9 Potassium 3.7 3.2 L Chloride 105 107 Carbon Dioxide 25 26 Anion Gap 11 11 BUN 58 H D 49 H Creatinine 1.04 0.98 Est GFR ( Amer) > 60 > 60 Est GFR (Non-Af Amer) 55 L 59 L Glucose 143 H 119 H Calcium 8.2 L 8.2 L Magnesium 1.5 L 2.2 03/10/18 03/10/18 06:00 15:04 WBC 21.0 H RBC 2.88 L Hgb 8.5 L Hct 26.3 L MCV 91 MCH 29.7 MCHC 32.5 RDW 17.2 H Plt Count 151 Seg Neutrophils % Not Reportable Lymphocytes % Not Reportable Monocytes % Not Reportable Eosinophils % Not Reportable Basophils % Not Reportable Absolute Neutrophils Not Reportable Absolute Lymphocytes Not Reportable Absolute Monocytes Not Reportable Absolute Eosinophils Not Reportable Absolute Basophils Not Reportable Sodium Potassium 4.6 D Chloride Carbon Dioxide Anion Gap BUN Creatinine Est GFR ( Amer) Est GFR (Non-Af Amer) Glucose Calcium Magnesium 03/06/18 00:52 Blood Blood Culture - Final Klebsiella Pneumoniae Impressions: Chest X-Ray 03/05/18 23:19 IMPRESSION: Interval line/tube modification. Assessment & Plan - Diagnosis (1) Septic shock Is this a current diagnosis for this admission?: Yes Plan: Patient no longer in shock state, DC IV norepinephrine, will change IV fluid from normal saline to lactated Ringer's (2) Acute kidney injury Is this a current diagnosis for this admission?: Yes Plan: Resolved (3) Hyponatremia Is this a current diagnosis for this admission?: Yes Plan: Resolved (4) Gram negative septicemia Is this a current diagnosis for this admission?: Yes Plan: Continue antibiotic,Still have significant leukocytosis (5) Hypotension Qualifiers: Hypotension type: unspecified hypotension type Qualified Code(s): I95.9 - Hypotension, unspecified Is this a current diagnosis for this admission?: Yes (6) Gastrointestinal hemorrhage Qualifiers: GI bleed type/associated pathology: unspecified gastrointestinal hemorrhage type Qualified Code(s): K92.2 - Gastrointestinal hemorrhage, unspecified Is this a current diagnosis for this admission?: Yes (7) Urinary tract infection associated with indwelling urethral catheter Qualifiers: Encounter type: initial encounter Qualified Code(s): T83.511A - Infection and inflammatory reaction due to indwelling urethral catheter, initial encounter ; N39.0 - Urinary tract infection, site not specified; N39.0 - Urinary tract infection, site not specified Is this a current diagnosis for this admission?: Yes
[2018-03-11 06:56] LABS: ANION GAP 7 (5-19); BLOOD UREA NITROGEN 29 mg/dL (7-20); CALCIUM 8.1 mg/dL (8.4-10.2); CARBON DIOXIDE 30 mmol/L (22-30); CHLORIDE 107 mmol/L (98-107); GLUCOSE 91 mg/dL (75-110); POTASSIUM 3.8 mmol/L (3.6-5.0); SODIUM 144.3 mmol/L (137-145)
[2018-03-11 09:28] LABS: MEAN CORPUSCULAR HEMOGLOBIN 29.9 pg (27.0-33.4); MEAN CORPUSCULAR HGB CONC 32.7 g/dL (32.0-36.0); MEAN CORPUSCULAR VOLUME 92 fl (80-97); PLATELET COUNT 153 10^3/uL (150-450); RED BLOOD COUNT 2.52 10^6/uL (3.72-5.28); RED CELL DISTRIBUTION WIDTH 17.2 % (11.5-14.0); WHITE BLOOD COUNT 18.2 10^3/uL (4.0-10.5)
[2018-03-11] MEDS: SERTRALINE HCL 50 MG TABLET PO SCH (09:54)
[2018-03-11] MEDS: QUETIAPINE FUMARATE 100 MG TABLET PO SCH ×3 (09:54→21:12)
[2018-03-11] MEDS: PANTOPRAZOLE SODIUM 40 MG VIAL IV SCH (09:55)
[2018-03-11 10:10] LABS: ABSOLUTE LYMPHOCYTES# (MANUAL) 0.4 10^3/uL (0.5-4.7); ABSOLUTE MONOCYTES # (MANUAL) 1.1 10^3/uL (0.1-1.4); ABSOLUTE NEUTROPHILS# (MANUAL) 16.7 10^3/uL (1.7-8.2); BAND NEUTROPHILS % (MANUAL) 1 % (3-5); BASOPHILS % (MANUAL) 0 % (0-2); EOSINOPHILS % (MANUAL) 0 % (0-6); LYMPHOCYTES % (MANUAL) 2 % (13-45); MONOCYTES % (MANUAL) 6 % (3-13); SEGMENTED NEUTROPHILS % (MAN) 91 % (42-78); TOTAL CELLS COUNTED 100
[2018-03-11 10:11] LABS: ANISOCYTOSIS 2+; HYPOCHROMASIA 1+
[2018-03-11 10:12] LABS: OVALOCYTES 1+; PLATELET COMMENT ADEQUATE; POIKILOCYTOSIS 1+; POLYCHROMASIA 1+; TOXIC GRANULATION 1+
[2018-03-11 10:14] LABS: HEMOGLOBIN 7.5 g/dL (12.0-15.5)
[2018-03-11] MEDS: ERTAPENEM SODIUM 1 GM in NORMAL SALINE 50 ML IV SCH (13:05)
[2018-03-11] MEDS: RINGERS SOLUTION,LACTATED 1,000 ML IV PRN (13:10)
[2018-03-11] MEDS ORDERED: (PENDING PHARMACY ID) (Omeprazole Magnesium [Prilosec Otc] 40 MG) PO SCH (19:45)
[2018-03-11] MEDS ORDERED: BETHANECHOL CHLORIDE 10 MG PO SCH (19:45)
[2018-03-11] MEDS ORDERED: (PENDING PHARMACY ID) (Umeclidinium Bromide [Incruse Ellipta] 1 PUFF) IH SCH (19:45)
[2018-03-11] MEDS ORDERED: (PENDING PHARMACY ID) (Roflumilast [Daliresp 500 Mcg Tablet] 500 MCG) PO SCH (19:45)
--- NOTE | 2018-03-11 19:52 | PDOC PROGRESS REPORT ---
Subjective Progress Note for:: 03/11/18 Subjective:: Patient was seen by the bedside, she was downgraded to telemetry floor last night she is alert. The hemoglobin is 7.5 most likely dilutional, very anxious Reason For Visit: SEPTIC SHOCK, HYPONATREMIA Physical Exam Vital Signs: Temp Pulse Resp BP Pulse Ox 98.4 F 102 H 16 120/40 L 100 03/11/18 16:14 03/11/18 19:00 03/11/18 16:14 03/11/18 16:14 03/11/18 16:14 Intake & Output 03/10/18 03/11/18 03/12/18 06:59 06:59 06:59 Intake Total 2790 2315 1250 Output Total 2605 2665 1450 Balance 185 -350 -200 Weight 63.2 kg 65.3 kg General appearance: PRESENT: no acute distress Eye exam: PRESENT: PERRLA Respiratory exam: PRESENT: clear to auscultation wilfredo Cardiovascular exam: PRESENT: +S1, +S2 GI/Abdominal exam: PRESENT: soft Neurological exam: PRESENT: alert Results Laboratory Results: 03/11/18 09:10 03/11/18 06:10 03/11/18 03/11/18 06:10 09:10 WBC 18.2 H RBC 2.52 L Hgb 7.5 L Hct 23.0 L MCV 92 MCH 29.9 MCHC 32.7 RDW 17.2 H Plt Count 153 Seg Neutrophils % Not Reportable Lymphocytes % Not Reportable Monocytes % Not Reportable Eosinophils % Not Reportable Basophils % Not Reportable Absolute Neutrophils Not Reportable Absolute Lymphocytes Not Reportable Absolute Monocytes Not Reportable Absolute Eosinophils Not Reportable Absolute Basophils Not Reportable Sodium 144.3 Potassium 3.8 Chloride 107 Carbon Dioxide 30 Anion Gap 7 BUN 29 H Creatinine 0.88 Est GFR ( Amer) > 60 Est GFR (Non-Af Amer) > 60 Glucose 91 Calcium 8.1 L Magnesium 1.4 L 03/08/18 18:50 Stool - Stool - Final 03/08/18 18:50 Stool - Stool Stool Culture - Final NO SALMONELLA, SHIGELLA, CAMPYLOBACTER, OR E.COLI 0157 RECOVERED. NEGATIVE FOR SHIGA TOXINS 1&2. 03/06/18 00:52 Blood Blood Culture - Final Klebsiella Pneumoniae Impressions: Chest X-Ray 03/05/18 23:19 IMPRESSION: Interval line/tube modification. Assessment & Plan - Diagnosis (1) Septic shock Is this a current diagnosis for this admission?: Yes (2) Acute kidney injury Is this a current diagnosis for this admission?: Yes (3) Hyponatremia Is this a current diagnosis for this admission?: Yes (4) Gram negative septicemia Is this a current diagnosis for this admission?: Yes (5) Hypotension Qualifiers: Hypotension type: unspecified hypotension type Qualified Code(s): I95.9 - Hypotension, unspecified Is this a current diagnosis for this admission?: Yes (6) Gastrointestinal hemorrhage Qualifiers: GI bleed type/associated pathology: unspecified gastrointestinal hemorrhage type Qualified Code(s): K92.2 - Gastrointestinal hemorrhage, unspecified Is this a current diagnosis for this admission?: Yes (7) Urinary tract infection associated with indwelling urethral catheter Qualifiers: Encounter type: initial encounter Qualified Code(s): T83.511A - Infection and inflammatory reaction due to indwelling urethral catheter, initial encounter ; N39.0 - Urinary tract infection, site not specified; N39.0 - Urinary tract infection, site not specified Is this a current diagnosis for this admission?: Yes
[2018-03-11] MEDS: IPRATROPIUM/ALBUTEROL 0.5-2.5 MG/3 ML AMPUL NEB SCH (21:03)
[2018-03-11] MEDS: DICYCLOMINE HCL 10 MG CAPSULE PO SCH (21:13)
[2018-03-11] MEDS: SENNOSIDES/DOCUSATE 8.6-50 MG 1 EACH TABLET PO SCH (21:13)
[2018-03-11] MEDS: GABAPENTIN 100 MG CAPSULE PO SCH (21:13)
[2018-03-11] MEDS: ATORVASTATIN CALCIUM 40 MG TABLET PO SCH (21:13)
[2018-03-11] MEDS: MONTELUKAST SODIUM 10 MG TABLET PO SCH (21:14)
[2018-03-11] MEDS: SIMETHICONE 80 MG TAB.CHEW PO SCH (21:14)
[2018-03-11] MEDS: BUSPIRONE HCL 10 MG TABLET PO SCH (21:15)
[2018-03-11] MEDS: ROFLUMILAST 500 MCG TABLET PO SCH (21:16)
[2018-03-11] MEDS: LANSOPRAZOLE 30 MG TAB.RAP.DR PO SCH (21:18)
[2018-03-12] MEDS: RINGERS SOLUTION,LACTATED 1,000 ML IV PRN (04:20)
[2018-03-12] MEDS: SIMETHICONE 80 MG TAB.CHEW PO SCH ×3 (05:12→21:10)
[2018-03-12] MEDS: LANSOPRAZOLE 30 MG TAB.RAP.DR PO SCH (05:12)
[2018-03-12] MEDS: GABAPENTIN 100 MG CAPSULE PO SCH ×3 (05:12→21:10)
[2018-03-12] MEDS: DICYCLOMINE HCL 10 MG CAPSULE PO SCH ×3 (05:12→21:07)
[2018-03-12] MEDS ORDERED: LEVOTHYROXINE SODIUM 0.025 MG TABLET PO SCH (06:00)
[2018-03-12 06:17] LABS: ANION GAP 6 (5-19); BLOOD UREA NITROGEN 19 mg/dL (7-20); CALCIUM 7.5 mg/dL (8.4-10.2); CARBON DIOXIDE 33 mmol/L (22-30); CHLORIDE 104 mmol/L (98-107); GLUCOSE 96 mg/dL (75-110); POTASSIUM 3.3 mmol/L (3.6-5.0); SODIUM 143.2 mmol/L (137-145)
[2018-03-12] MEDS: LEVOTHYROXINE SODIUM 0.025 MG TABLET PO SCH (08:46)
[2018-03-12] MEDS: SERTRALINE HCL 50 MG TABLET PO SCH (08:46)
[2018-03-12] MEDS: QUETIAPINE FUMARATE 100 MG TABLET PO SCH ×3 (08:47→21:11)
[2018-03-12] MEDS: MAGNESIUM SULFATE 1 GM/D5W 100 ML IV SCH ×2 (08:48→09:37)
[2018-03-12] MEDS: IPRATROPIUM/ALBUTEROL 0.5-2.5 MG/3 ML AMPUL NEB SCH ×3 (09:05→20:25)
[2018-03-12] MEDS: ROFLUMILAST 500 MCG TABLET PO SCH (09:35)
[2018-03-12] MEDS: BUSPIRONE HCL 10 MG TABLET PO SCH ×2 (09:35→21:08)
[2018-03-12] MEDS: ERTAPENEM SODIUM 1 GM in NORMAL SALINE 50 ML IV SCH (14:09)
[2018-03-12 16:24] LABS: HEMATOCRIT 20.7 % (36.0-47.0); MEAN CORPUSCULAR HGB CONC 32.8 g/dL (32.0-36.0); MEAN CORPUSCULAR VOLUME 92 fl (80-97); PLATELET COUNT 138 10^3/uL (150-450); RED BLOOD COUNT 2.27 10^6/uL (3.72-5.28); RED CELL DISTRIBUTION WIDTH 16.4 % (11.5-14.0); WHITE BLOOD COUNT 14.1 10^3/uL (4.0-10.5)
[2018-03-12 16:40] LABS: ABSOLUTE LYMPHOCYTES# (MANUAL) 0.6 10^3/uL (0.5-4.7); ABSOLUTE MONOCYTES # (MANUAL) 0.8 10^3/uL (0.1-1.4); ABSOLUTE NEUTROPHILS# (MANUAL) 12.5 10^3/uL (1.7-8.2); BAND NEUTROPHILS % (MANUAL) 1 % (3-5); BASOPHILS % (MANUAL) 0 % (0-2); EOSINOPHILS % (MANUAL) 1 % (0-6); LYMPHOCYTES % (MANUAL) 4 % (13-45); MONOCYTES % (MANUAL) 6 % (3-13); SEGMENTED NEUTROPHILS % (MAN) 88 % (42-78); TOTAL CELLS COUNTED 100
[2018-03-12 16:41] LABS: ANISOCYTOSIS 1+; PLATELET COMMENT DECREASED; POIKILOCYTOSIS SLIGHT; TOXIC GRANULATION SLIGHT
[2018-03-12 16:42] LABS: HEMOGLOBIN 6.8 g/dL (12.0-15.5)
[2018-03-12] MEDS ORDERED: NORMAL SALINE 250 ML IV PRN ×3 (16:49→16:51)
[2018-03-12 17:09] LABS: ABSOLUTE RETICS # 0.025 10^6/uL (0.028-0.122)
[2018-03-12 19:26] LABS: FOLATE 3.79 ng/mL (>2.76)
[2018-03-12 19:28] LABS: IRON(TIBC) < 10.1 ug/dL (37-170)
--- NOTE | 2018-03-12 20:15 | PDOC PROGRESS REPORT ---
Subjective Progress Note for:: 03/12/18 Subjective:: Patient was seen by the bedside, she is very sleepy but arousable Reason For Visit: SEPTIC SHOCK, HYPONATREMIA Physical Exam Vital Signs: Temp Pulse Resp BP Pulse Ox 99.5 F 94 16 122/61 100 03/12/18 19:55 03/12/18 19:55 03/12/18 19:55 03/12/18 19:55 03/12/18 19:55 Intake & Output 03/11/18 03/12/18 03/13/18 06:59 06:59 06:59 Intake Total 2315 2610 1064 Output Total 2669 7820 1500 Balance -350 -65 -436 Weight 65.3 kg 71.7 kg General appearance: PRESENT: no acute distress Eye exam: PRESENT: PERRLA Respiratory exam: PRESENT: clear to auscultation wilfredo Cardiovascular exam: PRESENT: +S1, +S2 GI/Abdominal exam: PRESENT: soft Neurological exam: PRESENT: alert Results Laboratory Results: 03/12/18 16:12 03/12/18 05:07 03/12/18 03/12/18 03/12/18 05:07 16:12 16:12 WBC 14.1 H RBC 2.27 L Hgb 6.8 L Hct 20.7 L MCV 92 MCH 30.0 MCHC 32.8 RDW 16.4 H Plt Count 138 L Seg Neutrophils % Not Reportable Lymphocytes % Not Reportable Monocytes % Not Reportable Eosinophils % Not Reportable Basophils % Not Reportable Absolute Neutrophils Not Reportable Absolute Lymphocytes Not Reportable Absolute Monocytes Not Reportable Absolute Eosinophils Not Reportable Absolute Basophils Not Reportable Retic Count (auto) 1.10 Absolute Retic 0.025 L Sodium 143.2 Potassium 3.3 L Chloride 104 Carbon Dioxide 33 H Anion Gap 6 BUN 19 Creatinine 0.79 Est GFR ( Amer) > 60 Est GFR (Non-Af Amer) > 60 Glucose 96 Calcium 7.5 L Magnesium 1.0 L* Iron TIBC % Saturation Ferritin Vitamin B12 Folate Blood Type Antibody Screen 03/12/18 03/12/18 16:12 17:15 WBC RBC Hgb Hct MCV MCH MCHC RDW Plt Count Seg Neutrophils % Lymphocytes % Monocytes % Eosinophils % Basophils % Absolute Neutrophils Absolute Lymphocytes Absolute Monocytes Absolute Eosinophils Absolute Basophils Retic Count (auto) Absolute Retic Sodium Potassium Chloride Carbon Dioxide Anion Gap BUN Creatinine Est GFR ( Amer) Est GFR (Non-Af Amer) Glucose Calcium Magnesium Iron < 10.1 L TIBC 189 L % Saturation UNABLE TO CALCULATE Ferritin 857.00 H Vitamin B12 845.0 Folate 3.79 Blood Type A POSITIVE Antibody Screen NEGATIVE Impressions: Chest X-Ray 03/05/18 23:19 IMPRESSION: Interval line/tube modification. Assessment & Plan - Diagnosis (1) Septic shock Is this a current diagnosis for this admission?: Yes (2) Acute kidney injury Is this a current diagnosis for this admission?: Yes Plan: Resolved (3) Hyponatremia Is this a current diagnosis for this admission?: Yes (4) Gram negative septicemia Is this a current diagnosis for this admission?: Yes (5) Hypotension Qualifiers: Hypotension type: unspecified hypotension type Qualified Code(s): I95.9 - Hypotension, unspecified Is this a current diagnosis for this admission?: Yes (6) Gastrointestinal hemorrhage Qualifiers: GI bleed type/associated pathology: unspecified gastrointestinal hemorrhage type Qualified Code(s): K92.2 - Gastrointestinal hemorrhage, unspecified Is this a current diagnosis for this admission?: Yes (7) Urinary tract infection associated with indwelling urethral catheter Qualifiers: Encounter type: initial encounter Qualified Code(s): T83.511A - Infection and inflammatory reaction due to indwelling urethral catheter, initial encounter ; N39.0 - Urinary tract infection, site not specified; N39.0 - Urinary tract infection, site not specified Is this a current diagnosis for this admission?: Yes (8) Anemia Qualifiers: Anemia type: unspecified type Qualified Code(s): D64.9 - Anemia, unspecified Is this a current diagnosis for this admission?: Yes Plan: She will be transfused with 2 units of packed red blood cells (9) Anemia Qualifiers: Anemia type: iron deficiency Is this a current diagnosis for this admission?: Yes
[2018-03-12] MEDS ORDERED: POTASSIUM CHLORIDE 20 MEQ/15 ML UDCUP PO ONE (20:30)
[2018-03-12] MEDS: ATORVASTATIN CALCIUM 40 MG TABLET PO SCH (21:09)
[2018-03-12] MEDS: MONTELUKAST SODIUM 10 MG TABLET PO SCH (21:09)
[2018-03-12] MEDS: SENNOSIDES/DOCUSATE 8.6-50 MG 1 EACH TABLET PO SCH (21:10)
[2018-03-13] MEDS: RINGERS SOLUTION,LACTATED 1,000 ML IV PRN ×2 (01:23→16:30)
[2018-03-13 05:34] LABS: ABSOLUTE LYMPHOCYTES (AUTO) 0.8 10^3/uL (0.5-4.7); ABSOLUTE MONOCYTES (AUTO) 0.7 10^3/uL (0.1-1.4); ABSOLUTE NEUT (AUTO) 12.7 10^3/uL (1.7-8.2); BASOPHILS % (AUTO) 0.2 % (0-2); EOSINOPHILS % (AUTO) 0.2 % (0-6); HEMATOCRIT 30.1 % (36.0-47.0); LYMPHOCYTES % (AUTO) 5.3 % (13-45); MEAN CORPUSCULAR HGB CONC 33.9 g/dL (32.0-36.0); MONOCYTES % (AUTO) 4.8 % (3-13); PLATELET COUNT 130 10^3/uL (150-450); RED BLOOD COUNT 3.41 10^6/uL (3.72-5.28); RED CELL DISTRIBUTION WIDTH 16.3 % (11.5-14.0); SEGMENTED NEUTROPHILS % (AUTO) 89.5 % (42-78); TOTAL CELLS COUNTED % (AUTO) 100 %; WHITE BLOOD COUNT 14.2 10^3/uL (4.0-10.5)
[2018-03-13] MEDS: LEVOTHYROXINE SODIUM 0.025 MG TABLET PO SCH (05:36)
[2018-03-13] MEDS: DICYCLOMINE HCL 10 MG CAPSULE PO SCH ×3 (05:36→22:26)
[2018-03-13] MEDS: SIMETHICONE 80 MG TAB.CHEW PO SCH ×3 (05:36→22:26)
[2018-03-13] MEDS: GABAPENTIN 100 MG CAPSULE PO SCH ×3 (05:36→22:26)
[2018-03-13] MEDS: LANSOPRAZOLE 30 MG TAB.RAP.DR PO SCH (05:36)
[2018-03-13 05:46] LABS: HEMOGLOBIN 10.2 g/dL (12.0-15.5); MEAN CORPUSCULAR VOLUME 88 fl (80-97)
[2018-03-13 05:51] LABS: ANION GAP 8 (5-19); BLOOD UREA NITROGEN 12 mg/dL (7-20); CALCIUM 7.6 mg/dL (8.4-10.2); CARBON DIOXIDE 33 mmol/L (22-30); CHLORIDE 102 mmol/L (98-107); GLUCOSE 92 mg/dL (75-110); POTASSIUM 3.8 mmol/L (3.6-5.0); SODIUM 142.9 mmol/L (137-145)
[2018-03-13] MEDS: IPRATROPIUM/ALBUTEROL 0.5-2.5 MG/3 ML AMPUL NEB SCH ×3 (07:50→21:23)
[2018-03-13] MEDS: SERTRALINE HCL 50 MG TABLET PO SCH (08:17)
[2018-03-13] MEDS: QUETIAPINE FUMARATE 100 MG TABLET PO SCH ×3 (08:18→22:28)
[2018-03-13] MEDS: ROFLUMILAST 500 MCG TABLET PO SCH (09:46)
[2018-03-13] MEDS: BUSPIRONE HCL 10 MG TABLET PO SCH ×2 (09:46→22:27)
[2018-03-13] MEDS: ERTAPENEM SODIUM 1 GM in NORMAL SALINE 50 ML IV SCH (14:07)
--- NOTE | 2018-03-13 21:27 | PDOC PROGRESS REPORT ---
Subjective Progress Note for:: 03/13/18 Subjective:: Patient was seen by the bedside, she feels better, will discontinue Tenorio catheter, encourage patient to use bedside commode Reason For Visit: SEPTIC SHOCK, HYPONATREMIA Physical Exam Vital Signs: Temp Pulse Resp BP Pulse Ox 97.9 F 98 19 104/59 L 97 03/13/18 15:13 03/13/18 15:13 03/13/18 15:13 03/13/18 15:13 03/13/18 15:13 Intake & Output 03/12/18 03/13/18 03/14/18 06:59 06:59 06:59 Intake Total 2610 3101 1287 Output Total 2671 3600 1400 Balance -65 -499 -113 Weight 71.7 kg 69.7 kg General appearance: PRESENT: no acute distress Eye exam: PRESENT: PERRLA Respiratory exam: PRESENT: clear to auscultation wilfredo Cardiovascular exam: PRESENT: +S1, +S2 GI/Abdominal exam: PRESENT: soft Neurological exam: PRESENT: alert Results Laboratory Results: 03/13/18 04:30 03/13/18 04:30 03/12/18 03/13/18 03/13/18 17:15 04:30 04:30 WBC 14.2 H RBC 3.41 L Hgb 10.2 L D Hct 30.1 L MCV 88 D MCH 30.0 MCHC 33.9 RDW 16.3 H Plt Count 130 L Seg Neutrophils % 89.5 H Lymphocytes % 5.3 L Monocytes % 4.8 Eosinophils % 0.2 Basophils % 0.2 Absolute Neutrophils 12.7 H Absolute Lymphocytes 0.8 Absolute Monocytes 0.7 Absolute Eosinophils 0.0 Absolute Basophils 0.0 Sodium 142.9 Potassium 3.8 Chloride 102 Carbon Dioxide 33 H Anion Gap 8 BUN 12 Creatinine 0.69 Est GFR ( Amer) > 60 Est GFR (Non-Af Amer) > 60 Glucose 92 Calcium 7.6 L Magnesium 1.4 L Blood Type A POSITIVE Antibody Screen NEGATIVE Impressions: Chest X-Ray 03/05/18 23:19 IMPRESSION: Interval line/tube modification. Assessment & Plan - Diagnosis (1) Septic shock Is this a current diagnosis for this admission?: Yes (2) Acute kidney injury Is this a current diagnosis for this admission?: Yes (3) Hyponatremia Is this a current diagnosis for this admission?: Yes (4) Gram negative septicemia Is this a current diagnosis for this admission?: Yes (5) Hypotension Qualifiers: Hypotension type: unspecified hypotension type Qualified Code(s): I95.9 - Hypotension, unspecified Is this a current diagnosis for this admission?: Yes (6) Gastrointestinal hemorrhage Qualifiers: GI bleed type/associated pathology: unspecified gastrointestinal hemorrhage type Qualified Code(s): K92.2 - Gastrointestinal hemorrhage, unspecified Is this a current diagnosis for this admission?: Yes (7) Urinary tract infection associated with indwelling urethral catheter Qualifiers: Encounter type: initial encounter Qualified Code(s): T83.511A - Infection and inflammatory reaction due to indwelling urethral catheter, initial encounter ; N39.0 - Urinary tract infection, site not specified; N39.0 - Urinary tract infection, site not specified Is this a current diagnosis for this admission?: Yes (8) Anemia Qualifiers: Anemia type: unspecified type Qualified Code(s): D64.9 - Anemia, unspecified Is this a current diagnosis for this admission?: Yes (9) Anemia Qualifiers: Anemia type: iron deficiency Is this a current diagnosis for this admission?: Yes
[2018-03-13] MEDS: ATORVASTATIN CALCIUM 40 MG TABLET PO SCH (22:26)
[2018-03-13] MEDS: MONTELUKAST SODIUM 10 MG TABLET PO SCH (22:26)
[2018-03-13] MEDS: SENNOSIDES/DOCUSATE 8.6-50 MG 1 EACH TABLET PO SCH (22:26)
[2018-03-14] MEDS: LANSOPRAZOLE 30 MG TAB.RAP.DR PO SCH (05:32)
[2018-03-14] MEDS: SIMETHICONE 80 MG TAB.CHEW PO SCH ×3 (05:32→21:07)
[2018-03-14] MEDS: GABAPENTIN 100 MG CAPSULE PO SCH ×3 (05:32→21:07)
[2018-03-14] MEDS: LEVOTHYROXINE SODIUM 0.025 MG TABLET PO SCH (05:32)
[2018-03-14] MEDS: DICYCLOMINE HCL 10 MG CAPSULE PO SCH ×3 (05:32→21:07)
[2018-03-14 06:41] LABS: ANION GAP 7 (5-19); BLOOD UREA NITROGEN 11 mg/dL (7-20); CALCIUM 7.6 mg/dL (8.4-10.2); CARBON DIOXIDE 37 mmol/L (22-30); CHLORIDE 96 mmol/L (98-107); GLUCOSE 100 mg/dL (75-110); POTASSIUM 3.4 mmol/L (3.6-5.0); SODIUM 139.7 mmol/L (137-145)
[2018-03-14] MEDS: RINGERS SOLUTION,LACTATED 1,000 ML IV PRN ×2 (07:31→21:19)
[2018-03-14] MEDS: MAGNESIUM SULFATE 1 GM/D5W 100 ML IV SCH ×2 (07:47→09:35)
[2018-03-14] MEDS: SERTRALINE HCL 50 MG TABLET PO SCH (07:51)
[2018-03-14] MEDS: QUETIAPINE FUMARATE 100 MG TABLET PO SCH ×3 (07:53→21:06)
[2018-03-14] MEDS: IPRATROPIUM/ALBUTEROL 0.5-2.5 MG/3 ML AMPUL NEB SCH ×3 (08:55→20:52)
[2018-03-14] MEDS: ROFLUMILAST 500 MCG TABLET PO SCH (09:35)
[2018-03-14] MEDS: BUSPIRONE HCL 10 MG TABLET PO SCH ×2 (09:35→21:07)
[2018-03-14] MEDS: ERTAPENEM SODIUM 1 GM in NORMAL SALINE 50 ML IV SCH (13:24)
--- NOTE | 2018-03-14 20:55 | PDOC PROGRESS REPORT ---
Subjective Progress Note for:: 03/14/18 Subjective:: Patient was seen by the bedside, she had diarrhea, was negative for C. difficile toxin. The Tenorio catheter was discontinued yesterday, the nurses stated that she has not been requesting for the use of bedside commode she has been urinating and defecating in her briefs Reason For Visit: SEPTIC SHOCK, HYPONATREMIA Physical Exam Vital Signs: Temp Pulse Resp BP Pulse Ox 98.4 F 86 18 111/57 L 100 03/14/18 16:01 03/14/18 16:01 03/14/18 16:01 03/14/18 16:01 03/14/18 16:01 Intake & Output 03/13/18 03/14/18 03/15/18 06:59 06:59 06:59 Intake Total 3101 2287 487 Output Total 3600 1400 Balance -499 887 487 Weight 69.7 kg 68.9 kg General appearance: PRESENT: no acute distress Eye exam: PRESENT: PERRLA Respiratory exam: PRESENT: clear to auscultation wilfredo Cardiovascular exam: PRESENT: +S1, +S2 GI/Abdominal exam: PRESENT: soft Neurological exam: PRESENT: alert Psychiatric exam: PRESENT: anxious Results Laboratory Results: 03/13/18 04:30 03/14/18 06:04 03/14/18 06:04 Sodium 139.7 Potassium 3.4 L Chloride 96 L Carbon Dioxide 37 H Anion Gap 7 BUN 11 Creatinine 0.64 Est GFR ( Amer) > 60 Est GFR (Non-Af Amer) > 60 Glucose 100 Calcium 7.6 L Magnesium 1.1 L* Impressions: Chest X-Ray 03/05/18 23:19 IMPRESSION: Interval line/tube modification. Assessment & Plan - Diagnosis (1) Septic shock Is this a current diagnosis for this admission?: Yes (2) Acute kidney injury Is this a current diagnosis for this admission?: Yes (3) Hyponatremia Is this a current diagnosis for this admission?: Yes Plan: Resolved (4) Gram negative septicemia Is this a current diagnosis for this admission?: Yes (5) Hypotension Qualifiers: Hypotension type: unspecified hypotension type Qualified Code(s): I95.9 - Hypotension, unspecified Is this a current diagnosis for this admission?: Yes (6) Gastrointestinal hemorrhage Qualifiers: GI bleed type/associated pathology: unspecified gastrointestinal hemorrhage type Qualified Code(s): K92.2 - Gastrointestinal hemorrhage, unspecified Is this a current diagnosis for this admission?: Yes (7) Urinary tract infection associated with indwelling urethral catheter Qualifiers: Encounter type: initial encounter Qualified Code(s): T83.511A - Infection and inflammatory reaction due to indwelling urethral catheter, initial encounter ; N39.0 - Urinary tract infection, site not specified; N39.0 - Urinary tract infection, site not specified Is this a current diagnosis for this admission?: Yes (8) Anemia Qualifiers: Anemia type: unspecified type Qualified Code(s): D64.9 - Anemia, unspecified Is this a current diagnosis for this admission?: Yes (9) Anemia Qualifiers: Anemia type: iron deficiency Is this a current diagnosis for this admission?: Yes
[2018-03-14] MEDS: SENNOSIDES/DOCUSATE 8.6-50 MG 1 EACH TABLET PO SCH (21:07)
[2018-03-14] MEDS: MONTELUKAST SODIUM 10 MG TABLET PO SCH (21:07)
[2018-03-14] MEDS: ATORVASTATIN CALCIUM 40 MG TABLET PO SCH (21:07)
[2018-03-14 22:28] LABS: ABSOLUTE BASOPHILS # (AUTO) 0.1 10^3/uL (0.0-0.2); ABSOLUTE LYMPHOCYTES (AUTO) 0.6 10^3/uL (0.5-4.7); ABSOLUTE MONOCYTES (AUTO) 0.5 10^3/uL (0.1-1.4); ABSOLUTE NEUT (AUTO) 6.9 10^3/uL (1.7-8.2); BASOPHILS % (AUTO) 0.6 % (0-2); EOSINOPHILS % (AUTO) 0.6 % (0-6); HEMOGLOBIN 9.2 g/dL (12.0-15.5); LYMPHOCYTES % (AUTO) 7.7 % (13-45); MEAN CORPUSCULAR HEMOGLOBIN 30.3 pg (27.0-33.4); MEAN CORPUSCULAR HGB CONC 33.9 g/dL (32.0-36.0); MEAN CORPUSCULAR VOLUME 89 fl (80-97); MONOCYTES % (AUTO) 6.6 % (3-13); PLATELET COUNT 113 10^3/uL (150-450); RED BLOOD COUNT 3.02 10^6/uL (3.72-5.28); RED CELL DISTRIBUTION WIDTH 15.2 % (11.5-14.0); SEGMENTED NEUTROPHILS % (AUTO) 84.5 % (42-78); TOTAL CELLS COUNTED % (AUTO) 100 %; WHITE BLOOD COUNT 8.2 10^3/uL (4.0-10.5)
[2018-03-14 22:52] LABS: ALANINE AMINOTRANSFERASE 17 U/L (9-52); ALBUMIN 2.2 g/dL (3.5-5.0); ALKALINE PHOSPHATASE 77 U/L (38-126); ASPARTATE AMINO TRANSFERASE 14 U/L (14-36); BILIRUBIN,DIRECT 0.2 mg/dL (0.0-0.4); BILIRUBIN,TOTAL 0.2 mg/dL (0.2-1.3); BLOOD UREA NITROGEN 10 mg/dL (7-20); CALCIUM 7.4 mg/dL (8.4-10.2); CARBON DIOXIDE 37 mmol/L (22-30); CHLORIDE 95 mmol/L (98-107); GLUCOSE 97 mg/dL (75-110); SODIUM 135.8 mmol/L (137-145); TOTAL PROTEIN 4.3 g/dL (6.3-8.2)
[2018-03-14 22:57] LABS: POTASSIUM 2.9 mmol/L (3.6-5.0)
[2018-03-14 22:58] LABS: ANION GAP 4 (5-19)
[2018-03-14] MEDS: POTASSIUM CHLORIDE 10 MEQ CAPSULE.ER PO SCH (23:41)
[2018-03-15] MEDS: DICYCLOMINE HCL 10 MG CAPSULE PO SCH ×3 (05:10→21:47)
[2018-03-15] MEDS: POTASSIUM CHLORIDE 10 MEQ CAPSULE.ER PO SCH ×2 (05:10→11:38)
[2018-03-15] MEDS: LANSOPRAZOLE 30 MG TAB.RAP.DR PO SCH (05:11)
[2018-03-15] MEDS: LEVOTHYROXINE SODIUM 0.025 MG TABLET PO SCH (05:11)
[2018-03-15] MEDS: GABAPENTIN 100 MG CAPSULE PO SCH ×3 (05:11→21:47)
[2018-03-15] MEDS: SIMETHICONE 80 MG TAB.CHEW PO SCH ×3 (05:11→21:47)
[2018-03-15 07:18] LABS: BLOOD UREA NITROGEN 8 mg/dL (7-20); CALCIUM 7.7 mg/dL (8.4-10.2); CHLORIDE 98 mmol/L (98-107); GLUCOSE 87 mg/dL (75-110); POTASSIUM 3.5 mmol/L (3.6-5.0); SODIUM 138.9 mmol/L (137-145)
[2018-03-15 07:34] LABS: ANION GAP 1 (5-19)
[2018-03-15 07:37] LABS: CARBON DIOXIDE 40 mmol/L (22-30)
[2018-03-15] MEDS: QUETIAPINE FUMARATE 100 MG TABLET PO SCH ×3 (08:07→21:47)
[2018-03-15] MEDS: SERTRALINE HCL 50 MG TABLET PO SCH (08:07)
[2018-03-15] MEDS: IPRATROPIUM/ALBUTEROL 0.5-2.5 MG/3 ML AMPUL NEB SCH ×3 (08:33→20:37)
[2018-03-15 08:39] LABS: ARTERIAL BLOOD BASE EXCESS 13.8 mmol/L; ARTERIAL BLOOD H2CO3 2.07 mmol/L (1.05-1.35); ARTERIAL BLOOD HCO3 40.9 mmol/L (20-24); ARTERIAL BLOOD O2 SATURATION 96.3 % (94-98); ARTERIAL BLOOD PCO2 68.7 mmHg (35-45); ARTERIAL BLOOD PH 7.39 (7.35-7.45); ARTERIAL BLOOD PO2 87.7 mmHg (80-100)
[2018-03-15 08:41] LABS: ARTERIAL BLOOD FIO2 2 L
[2018-03-15] MEDS: ROFLUMILAST 500 MCG TABLET PO SCH (09:34)
[2018-03-15] MEDS: BUSPIRONE HCL 10 MG TABLET PO SCH ×2 (09:34→21:47)
[2018-03-15] MEDS: RINGERS SOLUTION,LACTATED 1,000 ML IV PRN (11:38)
--- NOTE | 2018-03-15 14:56 | PDOC PROGRESS REPORT ---
Subjective Progress Note for:: 03/15/18 Subjective:: Patient denied any chest pain. Breathing is normal on supplemental oxygen via nasal cannula. No nausea, vomiting or abdominal pain. Reason For Visit: SEPTIC SHOCK, HYPONATREMIA Physical Exam Vital Signs: Temp Pulse Resp BP Pulse Ox 98.2 F 92 18 106/49 L 99 03/15/18 13:05 03/15/18 14:11 03/15/18 14:11 03/15/18 13:05 03/15/18 14:11 Intake & Output 03/14/18 03/15/18 03/16/18 06:59 06:59 06:59 Intake Total 2287 1453 1200 Output Total 1400 Balance 887 1453 1200 Weight 68.9 kg 68 kg General appearance: PRESENT: mild distress - on supplemental oxygen via nasal cannula Head exam: PRESENT: atraumatic, normocephalic Eye exam: PRESENT: conjunctiva pink, EOMI, PERRLA. ABSENT: scleral icterus Ear exam: PRESENT: normal external ear exam Mouth exam: PRESENT: moist Respiratory exam: PRESENT: clear to auscultation wilfredo, decreased breath sounds - at lung bases Cardiovascular exam: PRESENT: RRR. ABSENT: diastolic murmur, rubs, systolic murmur Vascular exam: ABSENT: pallor GI/Abdominal exam: PRESENT: normal bowel sounds, soft. ABSENT: distended, guarding, mass, organolmegaly, rebound, tenderness Extremities exam: ABSENT: pedal edema Musculoskeletal exam: PRESENT: normal inspection Neurological exam: PRESENT: alert, awake, oriented to person, oriented to place , oriented to time, oriented to situation, CN II-XII grossly intact. ABSENT: motor sensory deficit Psychiatric exam: PRESENT: appropriate affect, normal mood. ABSENT: homicidal ideation, suicidal ideation Skin exam: PRESENT: dry, intact, warm. ABSENT: cyanosis, rash Results Laboratory Results: 03/14/18 22:16 03/15/18 06:31 03/14/18 03/14/18 03/15/18 22:16 22:16 06:31 WBC 8.2 RBC 3.02 L Hgb 9.2 L Hct 27.0 L MCV 89 MCH 30.3 MCHC 33.9 RDW 15.2 H Plt Count 113 L Seg Neutrophils % 84.5 H Lymphocytes % 7.7 L Monocytes % 6.6 Eosinophils % 0.6 Basophils % 0.6 Absolute Neutrophils 6.9 Absolute Lymphocytes 0.6 Absolute Monocytes 0.5 Absolute Eosinophils 0.0 Absolute Basophils 0.1 Carbonic Acid HCO3/H2CO3 Ratio ABG pH ABG pCO2 ABG pO2 ABG HCO3 ABG O2 Saturation ABG Base Excess FiO2 Sodium 135.8 L 138.9 Potassium 2.9 L* 3.5 L Chloride 95 L 98 Carbon Dioxide 37 H 40 H* Anion Gap 4 L 1 L BUN 10 8 Creatinine 0.60 0.64 Est GFR ( Amer) > 60 > 60 Est GFR (Non-Af Amer) > 60 > 60 Glucose 97 87 Calcium 7.4 L 7.7 L Magnesium 1.6 Total Bilirubin 0.2 AST 14 ALT 17 Alkaline Phosphatase 77 Total Protein 4.3 L Albumin 2.2 L 03/15/18 08:00 WBC RBC Hgb Hct MCV MCH MCHC RDW Plt Count Seg Neutrophils % Lymphocytes % Monocytes % Eosinophils % Basophils % Absolute Neutrophils Absolute Lymphocytes Absolute Monocytes Absolute Eosinophils Absolute Basophils Carbonic Acid 2.07 H HCO3/H2CO3 Ratio 19:1 ABG pH 7.39 ABG pCO2 68.7 H ABG pO2 87.7 ABG HCO3 40.9 H ABG O2 Saturation 96.3 ABG Base Excess 13.8 FiO2 2 L Sodium Potassium Chloride Carbon Dioxide Anion Gap BUN Creatinine Est GFR ( Amer) Est GFR (Non-Af Amer) Glucose Calcium Magnesium Total Bilirubin AST ALT Alkaline Phosphatase Total Protein Albumin Impressions: Chest X-Ray 03/05/18 23:19 IMPRESSION: Interval line/tube modification. Assessment & Plan - Diagnosis (1) Septic shock Is this a current diagnosis for this admission?: Yes Plan: Continue IV Ertapenem coverage for 10days in view of her complicated UTI with sepsis. Maintain on all other current medication management. (2) Urinary tract infection associated with indwelling urethral catheter Qualifiers: Encounter type: initial encounter Qualified Code(s): T83.511A - Infection and inflammatory reaction due to indwelling urethral catheter, initial encounter ; N39.0 - Urinary tract infection, site not specified; N39.0 - Urinary tract infection, site not specified Is this a current diagnosis for this admission?: Yes Plan: Continue IV Ertapenem coverage for total 10days. (3) Acute kidney injury Is this a current diagnosis for this admission?: Yes Plan: Resolved with IV hydration support. (4) Compensated respiratory acidosis Is this a current diagnosis for this admission?: Yes Plan: Maintain on BiPAP support while sleeping. (5) COPD (chronic obstructive pulmonary disease) Qualifiers: COPD type: chronic bronchitis Is this a current diagnosis for this admission?: Yes Plan: Continue all current medication and support care for her COPD management. (6) Diabetes mellitus type 2 in nonobese Is this a current diagnosis for this admission?: Yes Plan: Maintain on current medication management. Emphasized dietary restriction compliance. (7) Hypertension Qualifiers: Hypertension type: essential hypertension Is this a current diagnosis for this admission?: Yes Plan: Continue current medication management. - Time Time Spent with patient: 25-34 minutes Medications reviewed and adjusted accordingly: Yes Anticipated discharge: SNF Within: Other - Inpatient Certification I certify that my determination is in accordance with my understanding of Medicare's requirements for reasonable and necessary INPATIENT services [42 CFR 412.3e].: Yes Medical Necessity: Need Close Monitoring Due to Risk of Patient Decompensation, Need For IV Fluids, Need For Continuous Telemetry Monitoring, Need for Nebulizer Therapy and Monitoring of Response, Need for IV Antibiotics, Risk of Complication if Not Cared For in Hospital Post Hospital Care: D/C or Transfer Summary - Plan Summary Plan Summary: See covering attending physician orders for above outlined care plan.
[2018-03-15] MEDS ORDERED: ERTAPENEM SODIUM INJ 1 GM VIAL ONE (17:09)
[2018-03-15] MEDS: ERTAPENEM SODIUM 1 GM in NORMAL SALINE 50 ML IV SCH (17:31)
[2018-03-15] MEDS: SENNOSIDES/DOCUSATE 8.6-50 MG 1 EACH TABLET PO SCH (21:46)
[2018-03-15] MEDS: ATORVASTATIN CALCIUM 40 MG TABLET PO SCH (21:47)
[2018-03-15] MEDS: MONTELUKAST SODIUM 10 MG TABLET PO SCH (21:47)
[2018-03-16] MEDS: DICYCLOMINE HCL 10 MG CAPSULE PO SCH ×3 (06:05→21:20)
[2018-03-16] MEDS: LANSOPRAZOLE 30 MG TAB.RAP.DR PO SCH (06:07)
[2018-03-16] MEDS: LEVOTHYROXINE SODIUM 0.025 MG TABLET PO SCH (06:07)
[2018-03-16] MEDS: SIMETHICONE 80 MG TAB.CHEW PO SCH ×3 (06:07→21:21)
[2018-03-16] MEDS: GABAPENTIN 100 MG CAPSULE PO SCH ×3 (06:07→21:20)
[2018-03-16 06:37] LABS: BLOOD UREA NITROGEN 8 mg/dL (7-20); CALCIUM 7.9 mg/dL (8.4-10.2); GLUCOSE 88 mg/dL (75-110); POTASSIUM 3.8 mmol/L (3.6-5.0)
[2018-03-16 06:43] LABS: CARBON DIOXIDE 37 mmol/L (22-30); CHLORIDE 100 mmol/L (98-107)
[2018-03-16 06:47] LABS: ANION GAP 4 (5-19)
[2018-03-16] MEDS: RINGERS SOLUTION,LACTATED 1,000 ML IV PRN ×2 (07:20→15:32)
[2018-03-16] MEDS: QUETIAPINE FUMARATE 100 MG TABLET PO SCH ×3 (08:43→21:21)
[2018-03-16] MEDS: SERTRALINE HCL 50 MG TABLET PO SCH (08:43)
[2018-03-16] MEDS: IPRATROPIUM/ALBUTEROL 0.5-2.5 MG/3 ML AMPUL NEB SCH ×3 (09:16→20:24)
[2018-03-16] MEDS: ROFLUMILAST 500 MCG TABLET PO SCH (09:31)
[2018-03-16] MEDS: BUSPIRONE HCL 10 MG TABLET PO SCH ×2 (09:31→21:20)
--- NOTE | 2018-03-16 15:40 | PDOC PROGRESS REPORT ---
Subjective Progress Note for:: 03/16/18 Subjective:: Patient denied any chest pain. She reported feeling better with use of night time BiPAP. Remain on supplemental oxygen via nasal cannula. No nausea, vomiting or abdominal pain. Food intake portion remain a challenge. Reason For Visit: SEPTIC SHOCK, HYPONATREMIA Physical Exam Vital Signs: Temp Pulse Resp BP Pulse Ox 99.2 F 98 17 98/63 L 98 03/16/18 11:02 03/16/18 14:22 03/16/18 14:22 03/16/18 11:02 03/16/18 14:22 Intake & Output 03/15/18 03/16/18 03/17/18 06:59 06:59 06:59 Intake Total 1453 2737 574 Balance 1453 2737 574 Weight 68 kg 68 kg Physical Exam: General appearance: PRESENT: mild distress - on supplemental oxygen via nasal cannula Head exam: PRESENT: atraumatic, normocephalic Eye exam: PRESENT: conjunctiva pink, EOMI, PERRLA. ABSENT: pallor, scleral icterus Ear exam: PRESENT: normal external ear exam Mouth exam: PRESENT: moist Respiratory exam: PRESENT: clear to auscultation wilfredo, decreased breath sounds - at lung bases Cardiovascular exam: PRESENT: RRR. ABSENT: diastolic murmur, rubs, systolic murmur GI/Abdominal exam: PRESENT: normal bowel sounds, soft. ABSENT: distended, guarding, mass, organomegaly, rebound, tenderness Extremities exam: ABSENT: pedal edema Musculoskeletal exam: PRESENT: normal inspection Neurological exam: PRESENT: alert, awake, oriented to person, oriented to place , oriented to time, oriented to situation, CN II-XII grossly intact. ABSENT: motor sensory deficit Psychiatric exam: PRESENT: appropriate affect, normal mood. ABSENT: homicidal ideation, suicidal ideation Skin exam: PRESENT: dry, intact, warm. ABSENT: cyanosis, rash Results Laboratory Results: 03/14/18 22:16 03/16/18 06:15 03/16/18 06:15 Sodium 141.0 Potassium 3.8 Chloride 100 Carbon Dioxide 37 H Anion Gap 4 L BUN 8 Creatinine 0.58 Est GFR ( Amer) > 60 Est GFR (Non-Af Amer) > 60 Glucose 88 Calcium 7.9 L Magnesium 1.3 L Impressions: Chest X-Ray 03/05/18 23:19 IMPRESSION: Interval line/tube modification. Assessment & Plan - Diagnosis (1) Septic shock Is this a current diagnosis for this admission?: Yes (2) Urinary tract infection associated with indwelling urethral catheter Qualifiers: Encounter type: initial encounter Qualified Code(s): T83.511A - Infection and inflammatory reaction due to indwelling urethral catheter, initial encounter ; N39.0 - Urinary tract infection, site not specified; N39.0 - Urinary tract infection, site not specified Is this a current diagnosis for this admission?: Yes (3) Acute kidney injury Is this a current diagnosis for this admission?: Yes (4) Compensated respiratory acidosis Is this a current diagnosis for this admission?: Yes (5) COPD (chronic obstructive pulmonary disease) Qualifiers: COPD type: chronic bronchitis Is this a current diagnosis for this admission?: Yes (6) Diabetes mellitus type 2 in nonobese Is this a current diagnosis for this admission?: Yes (7) Hypertension Qualifiers: Hypertension type: essential hypertension Is this a current diagnosis for this admission?: Yes - Time Time Spent with patient: 25-34 minutes Medications reviewed and adjusted accordingly: Yes Anticipated discharge: SNF Within: Other - Inpatient Certification Based on my medical assessment, after consideration of the patient's comorbidities, presenting symptoms, or acuity I expect that the services needed warrant INPATIENT care.: Yes I certify that my determination is in accordance with my understanding of Medicare's requirements for reasonable and necessary INPATIENT services [42 CFR 412.3e].: Yes Medical Necessity: Need Close Monitoring Due to Risk of Patient Decompensation, Need For Continuous Telemetry Monitoring, Need for Nebulizer Therapy and Monitoring of Response, Need for IV Antibiotics, Risk of Complication if Not Cared For in Hospital Post Hospital Care: D/C or Transfer Summary - Plan Summary Plan Summary: Continue current medication management with IV Ertepenem coverage. Encourage increase po intake.
[2018-03-16] MEDS ORDERED: MAGNESIUM SULFATE/D5W 1 GM/100 ML RTUPB IV ONE (16:30)
[2018-03-16] MEDS: ERTAPENEM SODIUM 1 GM in NORMAL SALINE 50 ML IV SCH (18:49)
[2018-03-16] MEDS: ATORVASTATIN CALCIUM 40 MG TABLET PO SCH (21:21)
[2018-03-16] MEDS: MONTELUKAST SODIUM 10 MG TABLET PO SCH (21:21)
[2018-03-16] MEDS: SENNOSIDES/DOCUSATE 8.6-50 MG 1 EACH TABLET PO SCH (21:21)
[2018-03-17] MEDS: LANSOPRAZOLE 30 MG TAB.RAP.DR PO SCH (05:32)
[2018-03-17] MEDS: GABAPENTIN 100 MG CAPSULE PO SCH ×2 (05:32→16:58)
[2018-03-17] MEDS: SIMETHICONE 80 MG TAB.CHEW PO SCH ×2 (05:32→16:58)
[2018-03-17] MEDS: LEVOTHYROXINE SODIUM 0.025 MG TABLET PO SCH (05:33)
[2018-03-17] MEDS: RINGERS SOLUTION,LACTATED 1,000 ML IV PRN ×2 (05:47→22:16)
[2018-03-17 06:10] LABS: ABSOLUTE EOSINOPHILS # (AUTO) 0.1 10^3/uL (0.0-0.6); ABSOLUTE LYMPHOCYTES (AUTO) 0.7 10^3/uL (0.5-4.7); ABSOLUTE MONOCYTES (AUTO) 0.6 10^3/uL (0.1-1.4); ABSOLUTE NEUT (AUTO) 4.4 10^3/uL (1.7-8.2); BASOPHILS % (AUTO) 0.7 % (0-2); EOSINOPHILS % (AUTO) 1.1 % (0-6); HEMATOCRIT 26.6 % (36.0-47.0); LYMPHOCYTES % (AUTO) 12.6 % (13-45); MEAN CORPUSCULAR HEMOGLOBIN 30.5 pg (27.0-33.4); MEAN CORPUSCULAR HGB CONC 33.9 g/dL (32.0-36.0); MEAN CORPUSCULAR VOLUME 90 fl (80-97); MONOCYTES % (AUTO) 10.1 % (3-13); PLATELET COUNT 126 10^3/uL (150-450); RED BLOOD COUNT 2.95 10^6/uL (3.72-5.28); RED CELL DISTRIBUTION WIDTH 14.4 % (11.5-14.0); SEGMENTED NEUTROPHILS % (AUTO) 75.5 % (42-78); TOTAL CELLS COUNTED % (AUTO) 100 %; WHITE BLOOD COUNT 5.8 10^3/uL (4.0-10.5)
[2018-03-17 06:17] LABS: BLOOD UREA NITROGEN 6 mg/dL (7-20); CALCIUM 7.6 mg/dL (8.4-10.2); GLUCOSE 86 mg/dL (75-110); POTASSIUM 3.2 mmol/L (3.6-5.0)
[2018-03-17 06:22] LABS: CARBON DIOXIDE 38 mmol/L (22-30); CHLORIDE 99 mmol/L (98-107); SODIUM 138.8 mmol/L (137-145)
[2018-03-17 06:27] LABS: ANION GAP 2 (5-19)
[2018-03-17] MEDS: IPRATROPIUM/ALBUTEROL 0.5-2.5 MG/3 ML AMPUL NEB SCH ×3 (07:44→19:56)
[2018-03-17] MEDS: QUETIAPINE FUMARATE 100 MG TABLET PO SCH ×2 (08:36→12:00)
[2018-03-17] MEDS: SERTRALINE HCL 50 MG TABLET PO SCH (08:36)
[2018-03-17] MEDS: BUSPIRONE HCL 10 MG TABLET PO SCH (10:13)
[2018-03-17] MEDS: ROFLUMILAST 500 MCG TABLET PO SCH (10:15)
[2018-03-17] MEDS: DICYCLOMINE HCL 10 MG CAPSULE PO SCH (16:58)
[2018-03-17] MEDS: ERTAPENEM SODIUM 1 GM in NORMAL SALINE 50 ML IV SCH (17:12)
--- NOTE | 2018-03-17 21:33 | PDOC PROGRESS REPORT ---
Subjective Progress Note for:: 03/17/18 Subjective:: Patient seen by the bedside Reason For Visit: SEPTIC SHOCK, HYPONATREMIA Physical Exam Vital Signs: Temp Pulse Resp BP Pulse Ox 97.6 F 93 14 101/72 98 03/17/18 16:12 03/17/18 20:00 03/17/18 20:00 03/17/18 16:12 03/17/18 20:00 Intake & Output 03/16/18 03/17/18 03/18/18 06:59 06:59 06:59 Intake Total 2737 2322 857 Output Total 900 800 Balance 2737 1422 57 Weight 68 kg 67.1 kg General appearance: PRESENT: no acute distress Eye exam: PRESENT: PERRLA Respiratory exam: PRESENT: clear to auscultation wilfredo Cardiovascular exam: PRESENT: +S1, +S2 GI/Abdominal exam: PRESENT: soft Neurological exam: PRESENT: alert Results Laboratory Results: 03/17/18 05:50 03/17/18 05:50 03/17/18 03/17/18 05:50 05:50 WBC 5.8 RBC 2.95 L Hgb 9.0 L Hct 26.6 L MCV 90 MCH 30.5 MCHC 33.9 RDW 14.4 H Plt Count 126 L Seg Neutrophils % 75.5 Lymphocytes % 12.6 L Monocytes % 10.1 Eosinophils % 1.1 Basophils % 0.7 Absolute Neutrophils 4.4 Absolute Lymphocytes 0.7 Absolute Monocytes 0.6 Absolute Eosinophils 0.1 Absolute Basophils 0.0 Sodium 138.8 Potassium 3.2 L Chloride 99 Carbon Dioxide 38 H Anion Gap 2 L BUN 6 L Creatinine 0.53 Est GFR ( Amer) > 60 Est GFR (Non-Af Amer) > 60 Glucose 86 Calcium 7.6 L Magnesium 1.5 L Impressions: Chest X-Ray 03/05/18 23:19 IMPRESSION: Interval line/tube modification. Assessment & Plan - Diagnosis (1) Septic shock Is this a current diagnosis for this admission?: Yes (2) Acute kidney injury Is this a current diagnosis for this admission?: Yes (3) Hyponatremia Is this a current diagnosis for this admission?: Yes (4) Gram negative septicemia Is this a current diagnosis for this admission?: Yes (5) Hypotension Qualifiers: Hypotension type: unspecified hypotension type Qualified Code(s): I95.9 - Hypotension, unspecified Is this a current diagnosis for this admission?: Yes (6) Gastrointestinal hemorrhage Qualifiers: GI bleed type/associated pathology: unspecified gastrointestinal hemorrhage type Qualified Code(s): K92.2 - Gastrointestinal hemorrhage, unspecified Is this a current diagnosis for this admission?: Yes (7) Urinary tract infection associated with indwelling urethral catheter Qualifiers: Encounter type: initial encounter Qualified Code(s): T83.511A - Infection and inflammatory reaction due to indwelling urethral catheter, initial encounter ; N39.0 - Urinary tract infection, site not specified; N39.0 - Urinary tract infection, site not specified Is this a current diagnosis for this admission?: Yes (8) Anemia Qualifiers: Anemia type: unspecified type Qualified Code(s): D64.9 - Anemia, unspecified Is this a current diagnosis for this admission?: Yes
[2018-03-18] MEDS: DICYCLOMINE HCL 10 MG CAPSULE PO SCH ×5 (03:47→22:18)
[2018-03-18] MEDS: BUSPIRONE HCL 10 MG TABLET PO SCH ×3 (03:48→22:17)
[2018-03-18] MEDS: ATORVASTATIN CALCIUM 40 MG TABLET PO SCH ×2 (03:48→22:17)
[2018-03-18] MEDS: SIMETHICONE 80 MG TAB.CHEW PO SCH ×4 (03:48→22:17)
[2018-03-18] MEDS: GABAPENTIN 100 MG CAPSULE PO SCH ×4 (03:49→22:18)
[2018-03-18] MEDS: QUETIAPINE FUMARATE 100 MG TABLET PO SCH ×4 (03:51→22:17)
[2018-03-18] MEDS: MONTELUKAST SODIUM 10 MG TABLET PO SCH ×2 (03:51→22:18)
[2018-03-18] MEDS: SENNOSIDES/DOCUSATE 8.6-50 MG 1 EACH TABLET PO SCH ×2 (03:51→22:17)
[2018-03-18 07:06] LABS: BLOOD UREA NITROGEN 5 mg/dL (7-20); CALCIUM 7.6 mg/dL (8.4-10.2); GLUCOSE 87 mg/dL (75-110); POTASSIUM 3.4 mmol/L (3.6-5.0)
[2018-03-18 07:24] LABS: CARBON DIOXIDE 37 mmol/L (22-30); CHLORIDE 97 mmol/L (98-107); SODIUM 137.6 mmol/L (137-145)
[2018-03-18 07:28] LABS: ANION GAP 4 (5-19)
[2018-03-18] MEDS: LEVOTHYROXINE SODIUM 0.025 MG TABLET PO SCH (09:05)
[2018-03-18] MEDS: LANSOPRAZOLE 30 MG TAB.RAP.DR PO SCH (09:13)
[2018-03-18] MEDS: ROFLUMILAST 500 MCG TABLET PO SCH (09:13)
[2018-03-18] MEDS: SERTRALINE HCL 50 MG TABLET PO SCH (09:13)
[2018-03-18] MEDS: IPRATROPIUM/ALBUTEROL 0.5-2.5 MG/3 ML AMPUL NEB SCH ×3 (09:34→20:36)
[2018-03-18] MEDS: RINGERS SOLUTION,LACTATED 1,000 ML IV PRN (11:09)
[2018-03-18] MEDS: ERTAPENEM SODIUM 1 GM in NORMAL SALINE 50 ML IV SCH (17:00)
[2018-03-18 19:14] LABS: ABSOLUTE BASOPHILS # (AUTO) 0.1 10^3/uL (0.0-0.2); ABSOLUTE EOSINOPHILS # (AUTO) 0.1 10^3/uL (0.0-0.6); ABSOLUTE LYMPHOCYTES (AUTO) 0.6 10^3/uL (0.5-4.7); ABSOLUTE MONOCYTES (AUTO) 0.5 10^3/uL (0.1-1.4); ABSOLUTE NEUT (AUTO) 3.7 10^3/uL (1.7-8.2); BASOPHILS % (AUTO) 1.3 % (0-2); EOSINOPHILS % (AUTO) 1.5 % (0-6); HEMATOCRIT 26.7 % (36.0-47.0); LYMPHOCYTES % (AUTO) 12.7 % (13-45); MEAN CORPUSCULAR HEMOGLOBIN 30.6 pg (27.0-33.4); MEAN CORPUSCULAR HGB CONC 33.8 g/dL (32.0-36.0); MEAN CORPUSCULAR VOLUME 91 fl (80-97); MONOCYTES % (AUTO) 9.9 % (3-13); PLATELET COUNT 156 10^3/uL (150-450); RED BLOOD COUNT 2.96 10^6/uL (3.72-5.28); RED CELL DISTRIBUTION WIDTH 14.3 % (11.5-14.0); SEGMENTED NEUTROPHILS % (AUTO) 74.6 % (42-78); TOTAL CELLS COUNTED % (AUTO) 100 %
[2018-03-18 19:31] LABS: ALANINE AMINOTRANSFERASE 12 U/L (9-52); ALBUMIN 2.4 g/dL (3.5-5.0); ALKALINE PHOSPHATASE 96 U/L (38-126); ANION GAP 6 (5-19); ASPARTATE AMINO TRANSFERASE 10 U/L (14-36); BILIRUBIN,DIRECT 0.1 mg/dL (0.0-0.4); BILIRUBIN,TOTAL 0.1 mg/dL (0.2-1.3); BLOOD UREA NITROGEN 5 mg/dL (7-20); CALCIUM 7.7 mg/dL (8.4-10.2); CARBON DIOXIDE 36 mmol/L (22-30); CHLORIDE 96 mmol/L (98-107); GLUCOSE 126 mg/dL (75-110); POTASSIUM 3.1 mmol/L (3.6-5.0); SODIUM 137.6 mmol/L (137-145); TOTAL PROTEIN 4.7 g/dL (6.3-8.2)
--- NOTE | 2018-03-18 21:45 | PDOC PROGRESS REPORT ---
Subjective Progress Note for:: 03/18/18 Subjective:: Patient seen by the bedside, she looks much better today. Reason For Visit: SEPTIC SHOCK, HYPONATREMIA Physical Exam Vital Signs: Temp Pulse Resp BP Pulse Ox 98.5 F 89 16 98/42 L 100 03/18/18 15:14 03/18/18 20:37 03/18/18 20:37 03/18/18 15:14 03/18/18 20:37 Intake & Output 03/17/18 03/18/18 03/19/18 06:59 06:59 06:59 Intake Total 2322 2157 1656 Output Total 900 800 Balance 1422 1357 1656 Weight 67.1 kg 67.2 kg General appearance: PRESENT: no acute distress Eye exam: PRESENT: PERRLA Respiratory exam: PRESENT: clear to auscultation wilfredo Cardiovascular exam: PRESENT: +S1, +S2 GI/Abdominal exam: PRESENT: soft Neurological exam: PRESENT: alert Results Laboratory Results: 03/18/18 19:04 03/18/18 19:04 03/18/18 03/18/18 03/18/18 04:30 19:04 19:04 WBC 5.0 RBC 2.96 L Hgb 9.0 L Hct 26.7 L MCV 91 MCH 30.6 MCHC 33.8 RDW 14.3 H Plt Count 156 Seg Neutrophils % 74.6 Lymphocytes % 12.7 L Monocytes % 9.9 Eosinophils % 1.5 Basophils % 1.3 Absolute Neutrophils 3.7 Absolute Lymphocytes 0.6 Absolute Monocytes 0.5 Absolute Eosinophils 0.1 Absolute Basophils 0.1 Sodium 137.6 137.6 Potassium 3.4 L 3.1 L Chloride 97 L 96 L Carbon Dioxide 37 H 36 H Anion Gap 4 L 6 BUN 5 L 5 L Creatinine 0.53 0.71 Est GFR ( Amer) > 60 > 60 Est GFR (Non-Af Amer) > 60 > 60 Glucose 87 126 H Calcium 7.6 L 7.7 L Magnesium 1.3 L Total Bilirubin 0.1 L AST 10 L ALT 12 Alkaline Phosphatase 96 Total Protein 4.7 L Albumin 2.4 L Impressions: Chest X-Ray 03/05/18 23:19 IMPRESSION: Interval line/tube modification. Assessment & Plan - Diagnosis (1) Septic shock Is this a current diagnosis for this admission?: Yes (2) Acute kidney injury Is this a current diagnosis for this admission?: Yes (3) Hyponatremia Is this a current diagnosis for this admission?: Yes (4) Gram negative septicemia Is this a current diagnosis for this admission?: Yes (5) Hypotension Qualifiers: Hypotension type: unspecified hypotension type Qualified Code(s): I95.9 - Hypotension, unspecified Is this a current diagnosis for this admission?: Yes (6) Gastrointestinal hemorrhage Qualifiers: GI bleed type/associated pathology: unspecified gastrointestinal hemorrhage type Qualified Code(s): K92.2 - Gastrointestinal hemorrhage, unspecified Is this a current diagnosis for this admission?: Yes (7) Urinary tract infection associated with indwelling urethral catheter Qualifiers: Encounter type: initial encounter Qualified Code(s): T83.511A - Infection and inflammatory reaction due to indwelling urethral catheter, initial encounter; N39.0 - Urinary tract infection, site not specified; N39.0 - Urinary tract infection, site not specified Is this a current diagnosis for this admission?: Yes (8) Anemia Qualifiers: Anemia type: unspecified type Qualified Code(s): D64.9 - Anemia, unspecified Is this a current diagnosis for this admission?: Yes
[2018-03-18] MEDS: POTASSI CL 20 MEQ/50 ML RIDER 20 MEQ/50 ML RTUPB IV SCH (22:19)
[2018-03-19] MEDS: POTASSI CL 20 MEQ/50 ML RIDER 20 MEQ/50 ML RTUPB IV SCH (01:01)
[2018-03-19] MEDS: RINGERS SOLUTION,LACTATED 1,000 ML IV PRN ×2 (01:09→21:29)
[2018-03-19] MEDS: LANSOPRAZOLE 30 MG TAB.RAP.DR PO SCH (05:15)
[2018-03-19] MEDS: DICYCLOMINE HCL 10 MG CAPSULE PO SCH ×3 (05:15→21:27)
[2018-03-19] MEDS: LEVOTHYROXINE SODIUM 0.025 MG TABLET PO SCH (05:15)
[2018-03-19] MEDS: SIMETHICONE 80 MG TAB.CHEW PO SCH ×3 (05:15→21:28)
[2018-03-19] MEDS: GABAPENTIN 100 MG CAPSULE PO SCH ×3 (05:15→21:28)
[2018-03-19] MEDS: NORMAL SALINE INJ/PF 0.9% 10 ML SDV IV PRN (06:42)
[2018-03-19 07:07] LABS: BLOOD UREA NITROGEN 7 mg/dL (7-20); CARBON DIOXIDE 38 mmol/L (22-30); CHLORIDE 101 mmol/L (98-107); GLUCOSE 86 mg/dL (75-110); SODIUM 139.7 mmol/L (137-145)
[2018-03-19] MEDS: IPRATROPIUM/ALBUTEROL 0.5-2.5 MG/3 ML AMPUL NEB SCH ×3 (08:04→20:17)
[2018-03-19 08:37] LABS: ANION GAP 1 (5-19)
[2018-03-19] MEDS: SERTRALINE HCL 50 MG TABLET PO SCH (08:50)
[2018-03-19] MEDS: QUETIAPINE FUMARATE 100 MG TABLET PO SCH ×3 (08:50→21:27)
[2018-03-19] MEDS: BUSPIRONE HCL 10 MG TABLET PO SCH ×2 (09:30→21:28)
[2018-03-19] MEDS: ROFLUMILAST 500 MCG TABLET PO SCH (09:30)
--- NOTE | 2018-03-19 20:09 | PDOC PROGRESS REPORT ---
Subjective Progress Note for:: 03/19/18 Subjective:: Patient seen by the bedside Reason For Visit: SEPTIC SHOCK, HYPONATREMIA Physical Exam Vital Signs: Temp Pulse Resp BP Pulse Ox 98.2 F 107 H 20 99/53 L 97 03/19/18 15:21 03/19/18 15:21 03/19/18 15:21 03/19/18 15:21 03/19/18 15:21 Intake & Output 03/18/18 03/19/18 03/20/18 06:59 06:59 06:59 Intake Total 2157 2686 2271 Output Total 800 Balance 1357 2686 2271 Weight 67.2 kg 67.3 kg General appearance: PRESENT: no acute distress Eye exam: PRESENT: PERRLA Respiratory exam: PRESENT: clear to auscultation wilfredo Cardiovascular exam: PRESENT: +S1, +S2 GI/Abdominal exam: PRESENT: soft Results Laboratory Results: 03/18/18 19:04 03/19/18 05:15 03/19/18 05:15 Sodium 139.7 Potassium 4.0 Chloride 101 Carbon Dioxide 38 H Anion Gap 1 L BUN 7 Creatinine 0.60 Est GFR ( Amer) > 60 Est GFR (Non-Af Amer) > 60 Glucose 86 Calcium 8.0 L Magnesium 1.4 L 03/05/18 03/05/18 03/05/18 21:30 21:30 23:15 Creatine Kinase Cancelled 86 CK-MB (CK-2) 1.27 Troponin I 0.018 Impressions: Chest X-Ray 03/05/18 23:19 IMPRESSION: Interval line/tube modification. Assessment & Plan - Diagnosis (1) Septic shock Is this a current diagnosis for this admission?: Yes (2) Acute kidney injury Is this a current diagnosis for this admission?: Yes (3) Hyponatremia Is this a current diagnosis for this admission?: Yes (4) Gram negative septicemia Is this a current diagnosis for this admission?: Yes (5) Hypotension Qualifiers: Hypotension type: unspecified hypotension type Qualified Code(s): I95.9 - Hypotension, unspecified Is this a current diagnosis for this admission?: Yes (6) Gastrointestinal hemorrhage Qualifiers: GI bleed type/associated pathology: unspecified gastrointestinal hemorrhage type Qualified Code(s): K92.2 - Gastrointestinal hemorrhage, unspecified Is this a current diagnosis for this admission?: Yes (7) Urinary tract infection associated with indwelling urethral catheter Qualifiers: Encounter type: initial encounter Qualified Code(s): T83.511A - Infection and inflammatory reaction due to indwelling urethral catheter, initial encounter; N39.0 - Urinary tract infection, site not specified; N39.0 - Urinary tract infection, site not specified Is this a current diagnosis for this admission?: Yes (8) Anemia Qualifiers: Anemia type: unspecified type Qualified Code(s): D64.9 - Anemia, unspecified Is this a current diagnosis for this admission?: Yes
[2018-03-19] MEDS: ATORVASTATIN CALCIUM 40 MG TABLET PO SCH (21:28)
[2018-03-19] MEDS: SENNOSIDES/DOCUSATE 8.6-50 MG 1 EACH TABLET PO SCH (21:28)
[2018-03-19] MEDS: MONTELUKAST SODIUM 10 MG TABLET PO SCH (21:28)
[2018-03-20] MEDS: SIMETHICONE 80 MG TAB.CHEW PO SCH ×3 (05:06→21:25)
[2018-03-20] MEDS: LANSOPRAZOLE 30 MG TAB.RAP.DR PO SCH (05:06)
[2018-03-20] MEDS: GABAPENTIN 100 MG CAPSULE PO SCH ×3 (05:06→21:25)
[2018-03-20] MEDS: LEVOTHYROXINE SODIUM 0.025 MG TABLET PO SCH (05:06)
[2018-03-20] MEDS: DICYCLOMINE HCL 10 MG CAPSULE PO SCH ×3 (05:06→21:24)
[2018-03-20] MEDS: IPRATROPIUM/ALBUTEROL 0.5-2.5 MG/3 ML AMPUL NEB SCH ×3 (07:49→20:56)
[2018-03-20] MEDS: QUETIAPINE FUMARATE 100 MG TABLET PO SCH ×3 (08:29→21:25)
[2018-03-20] MEDS: SERTRALINE HCL 50 MG TABLET PO SCH (08:29)
[2018-03-20] MEDS: ROFLUMILAST 500 MCG TABLET PO SCH (09:21)
[2018-03-20] MEDS: BUSPIRONE HCL 10 MG TABLET PO SCH ×2 (09:21→21:24)
[2018-03-20] MEDS: RINGERS SOLUTION,LACTATED 1,000 ML IV PRN (12:47)
--- NOTE | 2018-03-20 21:24 | PDOC PROGRESS REPORT ---
Subjective Progress Note for:: 03/20/18 Subjective:: Patient seen by the bedside Reason For Visit: SEPTIC SHOCK, HYPONATREMIA Physical Exam Vital Signs: Temp Pulse Resp BP Pulse Ox 98.1 F 94 14 104/45 L 100 03/20/18 12:10 03/20/18 19:00 03/20/18 14:09 03/20/18 12:10 03/20/18 14:09 Intake & Output 03/19/18 03/20/18 03/21/18 06:59 06:59 06:59 Intake Total 2736 2271 1764 Balance 2736 2271 1764 Weight 67.3 kg 67.2 kg General appearance: PRESENT: no acute distress Eye exam: PRESENT: PERRLA Respiratory exam: PRESENT: clear to auscultation wilfredo Cardiovascular exam: PRESENT: +S1, +S2 GI/Abdominal exam: PRESENT: soft Neurological exam: PRESENT: alert Results Laboratory Results: 03/18/18 19:04 03/19/18 05:15 03/05/18 03/05/18 03/05/18 21:30 21:30 23:15 Creatine Kinase Cancelled 86 CK-MB (CK-2) 1.27 Troponin I 0.018 Impressions: Chest X-Ray 03/05/18 23:19 IMPRESSION: Interval line/tube modification. Assessment & Plan - Diagnosis (1) Septic shock Is this a current diagnosis for this admission?: Yes (2) Acute kidney injury Is this a current diagnosis for this admission?: Yes (3) Hyponatremia Is this a current diagnosis for this admission?: Yes (4) Gram negative septicemia Is this a current diagnosis for this admission?: Yes (5) Hypotension Qualifiers: Hypotension type: unspecified hypotension type Qualified Code(s): I95.9 - Hypotension, unspecified Is this a current diagnosis for this admission?: Yes (6) Gastrointestinal hemorrhage Qualifiers: GI bleed type/associated pathology: unspecified gastrointestinal hemorrhage type Qualified Code(s): K92.2 - Gastrointestinal hemorrhage, unspecified Is this a current diagnosis for this admission?: Yes (7) Urinary tract infection associated with indwelling urethral catheter Qualifiers: Encounter type: initial encounter Qualified Code(s): T83.511A - Infection and inflammatory reaction due to indwelling urethral catheter, initial encounter; N39.0 - Urinary tract infection, site not specified; N39.0 - Urinary tract infection, site not specified Is this a current diagnosis for this admission?: Yes (8) Anemia Qualifiers: Anemia type: unspecified type Qualified Code(s): D64.9 - Anemia, unspecified Is this a current diagnosis for this admission?: Yes
[2018-03-20] MEDS: MONTELUKAST SODIUM 10 MG TABLET PO SCH (21:25)
[2018-03-20] MEDS: SENNOSIDES/DOCUSATE 8.6-50 MG 1 EACH TABLET PO SCH (21:25)
[2018-03-20] MEDS: ATORVASTATIN CALCIUM 40 MG TABLET PO SCH (21:25)
[2018-03-20 23:32] LABS: ABSOLUTE EOSINOPHILS # (AUTO) 0.2 10^3/uL (0.0-0.6); ABSOLUTE LYMPHOCYTES (AUTO) 0.9 10^3/uL (0.5-4.7); ABSOLUTE MONOCYTES (AUTO) 0.6 10^3/uL (0.1-1.4); ABSOLUTE NEUT (AUTO) 2.7 10^3/uL (1.7-8.2); EOSINOPHILS % (AUTO) 3.8 % (0-6); HEMATOCRIT 23.9 % (36.0-47.0); HEMOGLOBIN 8.1 g/dL (12.0-15.5); LYMPHOCYTES % (AUTO) 19.9 % (13-45); MEAN CORPUSCULAR HEMOGLOBIN 30.7 pg (27.0-33.4); MEAN CORPUSCULAR HGB CONC 33.7 g/dL (32.0-36.0); MEAN CORPUSCULAR VOLUME 91 fl (80-97); MONOCYTES % (AUTO) 13.8 % (3-13); PLATELET COUNT 211 10^3/uL (150-450); RED BLOOD COUNT 2.63 10^6/uL (3.72-5.28); RED CELL DISTRIBUTION WIDTH 14.6 % (11.5-14.0); SEGMENTED NEUTROPHILS % (AUTO) 61.5 % (42-78); TOTAL CELLS COUNTED % (AUTO) 100 %; WHITE BLOOD COUNT 4.3 10^3/uL (4.0-10.5)
[2018-03-20 23:48] LABS: ALANINE AMINOTRANSFERASE 10 U/L (9-52); ALBUMIN 2.3 g/dL (3.5-5.0); ALKALINE PHOSPHATASE 92 U/L (38-126); ASPARTATE AMINO TRANSFERASE 10 U/L (14-36); BILIRUBIN,DIRECT 0.2 mg/dL (0.0-0.4); BILIRUBIN,TOTAL 0.2 mg/dL (0.2-1.3); BLOOD UREA NITROGEN 9 mg/dL (7-20); CALCIUM 7.5 mg/dL (8.4-10.2); GLUCOSE 111 mg/dL (75-110); POTASSIUM 3.6 mmol/L (3.6-5.0); TOTAL PROTEIN 4.5 g/dL (6.3-8.2)
[2018-03-20 23:54] LABS: CARBON DIOXIDE 35 mmol/L (22-30); CHLORIDE 101 mmol/L (98-107); SODIUM 137.4 mmol/L (137-145)
[2018-03-20 23:56] LABS: ANION GAP 1 (5-19)
[2018-03-21] MEDS: RINGERS SOLUTION,LACTATED 1,000 ML IV PRN (03:01)
[2018-03-21] MEDS: SIMETHICONE 80 MG TAB.CHEW PO SCH ×3 (05:33→21:28)
[2018-03-21] MEDS: DICYCLOMINE HCL 10 MG CAPSULE PO SCH ×3 (05:33→21:30)
[2018-03-21] MEDS: LANSOPRAZOLE 30 MG TAB.RAP.DR PO SCH (05:33)
[2018-03-21] MEDS: LEVOTHYROXINE SODIUM 0.025 MG TABLET PO SCH (05:33)
[2018-03-21] MEDS: GABAPENTIN 100 MG CAPSULE PO SCH ×3 (05:33→21:29)
[2018-03-21] MEDS: QUETIAPINE FUMARATE 100 MG TABLET PO SCH ×3 (08:30→21:29)
[2018-03-21] MEDS: SERTRALINE HCL 50 MG TABLET PO SCH (08:30)
[2018-03-21] MEDS: IPRATROPIUM/ALBUTEROL 0.5-2.5 MG/3 ML AMPUL NEB SCH ×3 (09:27→20:43)
[2018-03-21] MEDS: BUSPIRONE HCL 10 MG TABLET PO SCH ×2 (09:43→21:30)
[2018-03-21] MEDS: ROFLUMILAST 500 MCG TABLET PO SCH (09:43)
[2018-03-21 19:39] LABS: ABSOLUTE EOSINOPHILS # (AUTO) 0.2 10^3/uL (0.0-0.6); ABSOLUTE LYMPHOCYTES (AUTO) 0.9 10^3/uL (0.5-4.7); ABSOLUTE MONOCYTES (AUTO) 0.6 10^3/uL (0.1-1.4); ABSOLUTE NEUT (AUTO) 3.3 10^3/uL (1.7-8.2); BASOPHILS % (AUTO) 0.9 % (0-2); EOSINOPHILS % (AUTO) 4.7 % (0-6); HEMATOCRIT 25.1 % (36.0-47.0); HEMOGLOBIN 8.4 g/dL (12.0-15.5); MEAN CORPUSCULAR HEMOGLOBIN 30.4 pg (27.0-33.4); MEAN CORPUSCULAR HGB CONC 33.4 g/dL (32.0-36.0); MEAN CORPUSCULAR VOLUME 91 fl (80-97); MONOCYTES % (AUTO) 12.7 % (3-13); PLATELET COUNT 248 10^3/uL (150-450); RED BLOOD COUNT 2.76 10^6/uL (3.72-5.28); RED CELL DISTRIBUTION WIDTH 14.5 % (11.5-14.0); SEGMENTED NEUTROPHILS % (AUTO) 64.7 % (42-78); TOTAL CELLS COUNTED % (AUTO) 100 %; WHITE BLOOD COUNT 5.1 10^3/uL (4.0-10.5)
[2018-03-21 19:57] LABS: ALANINE AMINOTRANSFERASE 11 U/L (9-52); ALBUMIN 2.4 g/dL (3.5-5.0); ALKALINE PHOSPHATASE 106 U/L (38-126); ANION GAP 6 (5-19); ASPARTATE AMINO TRANSFERASE 10 U/L (14-36); BILIRUBIN,DIRECT 0.2 mg/dL (0.0-0.4); BILIRUBIN,TOTAL 0.2 mg/dL (0.2-1.3); BLOOD UREA NITROGEN 8 mg/dL (7-20); CALCIUM 7.5 mg/dL (8.4-10.2); CARBON DIOXIDE 35 mmol/L (22-30); CHLORIDE 99 mmol/L (98-107); GLUCOSE 117 mg/dL (75-110); POTASSIUM 3.5 mmol/L (3.6-5.0); SODIUM 139.8 mmol/L (137-145); TOTAL PROTEIN 4.7 g/dL (6.3-8.2)
[2018-03-21] MEDS: MONTELUKAST SODIUM 10 MG TABLET PO SCH (21:31)
[2018-03-21] MEDS: ATORVASTATIN CALCIUM 40 MG TABLET PO SCH (21:31)
[2018-03-21] MEDS: SENNOSIDES/DOCUSATE 8.6-50 MG 1 EACH TABLET PO SCH (21:33)
--- NOTE | 2018-03-21 21:35 | PDOC PROGRESS REPORT ---
Subjective Progress Note for:: 03/21/18 Subjective:: Patient seen by the bedside,She has no complaints Reason For Visit: SEPTIC SHOCK, HYPONATREMIA Physical Exam Vital Signs: Temp Pulse Resp BP Pulse Ox 98.1 F 99 22 H 111/63 98 03/21/18 19:53 03/21/18 20:45 03/21/18 20:45 03/21/18 19:53 03/21/18 20:45 Intake & Output 03/20/18 03/21/18 03/22/18 06:59 06:59 06:59 Intake Total 2271 3210 1610 Balance 2271 3210 1610 Weight 67.2 kg 67.4 kg General appearance: PRESENT: no acute distress Head exam: PRESENT: atraumatic, normocephalic Eye exam: PRESENT: PERRLA Ear exam: PRESENT: normal external ear exam Mouth exam: PRESENT: moist, tongue midline Neck exam: PRESENT: full ROM Respiratory exam: PRESENT: clear to auscultation wilfredo Cardiovascular exam: PRESENT: RRR, +S1, +S2 Pulses: PRESENT: normal dorsalis pedis pul, +2 pedal pulses bilateral Vascular exam: PRESENT: normal capillary refill GI/Abdominal exam: PRESENT: normal bowel sounds, soft Rectal exam: PRESENT: deferred Neurological exam: PRESENT: alert Psychiatric exam: PRESENT: appropriate affect, normal mood Skin exam: PRESENT: dry, intact, warm. ABSENT: cyanosis, rash Results Laboratory Results: 03/21/18 19:00 03/21/18 19:00 03/20/18 03/20/18 03/21/18 23:20 23:20 19:00 WBC 4.3 5.1 RBC 2.63 L 2.76 L Hgb 8.1 L 8.4 L Hct 23.9 L 25.1 L MCV 91 91 MCH 30.7 30.4 MCHC 33.7 33.4 RDW 14.6 H 14.5 H Plt Count 211 248 Seg Neutrophils % 61.5 64.7 Lymphocytes % 19.9 17.0 Monocytes % 13.8 H 12.7 Eosinophils % 3.8 4.7 Basophils % 1.0 0.9 Absolute Neutrophils 2.7 3.3 Absolute Lymphocytes 0.9 0.9 Absolute Monocytes 0.6 0.6 Absolute Eosinophils 0.2 0.2 Absolute Basophils 0.0 0.0 Sodium 137.4 Potassium 3.6 Chloride 101 Carbon Dioxide 35 H Anion Gap 1 L BUN 9 Creatinine 0.55 Est GFR ( Amer) > 60 Est GFR (Non-Af Amer) > 60 Glucose 111 H Calcium 7.5 L Total Bilirubin 0.2 AST 10 L ALT 10 Alkaline Phosphatase 92 Total Protein 4.5 L Albumin 2.3 L 03/21/18 19:00 WBC RBC Hgb Hct MCV MCH MCHC RDW Plt Count Seg Neutrophils % Lymphocytes % Monocytes % Eosinophils % Basophils % Absolute Neutrophils Absolute Lymphocytes Absolute Monocytes Absolute Eosinophils Absolute Basophils Sodium 139.8 Potassium 3.5 L Chloride 99 Carbon Dioxide 35 H Anion Gap 6 BUN 8 Creatinine 0.59 Est GFR ( Amer) > 60 Est GFR (Non-Af Amer) > 60 Glucose 117 H Calcium 7.5 L Total Bilirubin 0.2 AST 10 L ALT 11 Alkaline Phosphatase 106 Total Protein 4.7 L Albumin 2.4 L 03/05/18 03/05/18 03/05/18 21:30 21:30 23:15 Creatine Kinase Cancelled 86 CK-MB (CK-2) 1.27 Troponin I 0.018 Impressions: Chest X-Ray 03/05/18 23:19 IMPRESSION: Interval line/tube modification. Assessment & Plan - Diagnosis (1) Septic shock Is this a current diagnosis for this admission?: Yes (2) Acute kidney injury Is this a current diagnosis for this admission?: Yes (3) Hyponatremia Is this a current diagnosis for this admission?: Yes (4) Gram negative septicemia Is this a current diagnosis for this admission?: Yes (5) Hypotension Qualifiers: Hypotension type: unspecified hypotension type Qualified Code(s): I95.9 - Hypotension, unspecified Is this a current diagnosis for this admission?: Yes (6) Gastrointestinal hemorrhage Qualifiers: GI bleed type/associated pathology: unspecified gastrointestinal hemorrhage type Qualified Code(s): K92.2 - Gastrointestinal hemorrhage, unspecified Is this a current diagnosis for this admission?: Yes (7) Urinary tract infection associated with indwelling urethral catheter Qualifiers: Encounter type: initial encounter Qualified Code(s): T83.511A - Infection and inflammatory reaction due to indwelling urethral catheter, initial encounter; N39.0 - Urinary tract infection, site not specified; N39.0 - Urinary tract infection, site not specified Is this a current diagnosis for this admission?: Yes (8) Anemia Qualifiers: Anemia type: unspecified type Qualified Code(s): D64.9 - Anemia, unspecified Is this a current diagnosis for this admission?: Yes
[2018-03-22] MEDS: SIMETHICONE 80 MG TAB.CHEW PO SCH ×2 (05:06→13:53)
[2018-03-22] MEDS: DICYCLOMINE HCL 10 MG CAPSULE PO SCH ×2 (05:06→13:46)
[2018-03-22] MEDS: LEVOTHYROXINE SODIUM 0.025 MG TABLET PO SCH (05:06)
[2018-03-22] MEDS: GABAPENTIN 100 MG CAPSULE PO SCH ×2 (05:06→13:46)
[2018-03-22] MEDS: LANSOPRAZOLE 30 MG TAB.RAP.DR PO SCH (05:10)
[2018-03-22] MEDS: SERTRALINE HCL 50 MG TABLET PO SCH (08:06)
[2018-03-22] MEDS: QUETIAPINE FUMARATE 100 MG TABLET PO SCH ×2 (08:06→12:38)
[2018-03-22] MEDS: IPRATROPIUM/ALBUTEROL 0.5-2.5 MG/3 ML AMPUL NEB SCH ×3 (08:17→19:28)
[2018-03-22] MEDS: ROFLUMILAST 500 MCG TABLET PO SCH (10:39)
[2018-03-22] MEDS: BUSPIRONE HCL 10 MG TABLET PO SCH (10:39)
--- NOTE | 2018-03-22 14:36 | PDOC TRANSFER SUMMARY ---
General - Admit/Disc Date/PCP Admission Date/Primary Care Provider: 03/05/18 23:46 PRECIOUS BRUMFIELD MD Discharge Date: 03/22/18 - Discharge Diagnosis (1) Septic shock Is this a current diagnosis for this admission?: Yes (2) Acute kidney injury Is this a current diagnosis for this admission?: Yes (3) Hyponatremia Is this a current diagnosis for this admission?: Yes (4) Gram negative septicemia Is this a current diagnosis for this admission?: Yes (5) Hypotension Is this a current diagnosis for this admission?: Yes (6) Gastrointestinal hemorrhage Is this a current diagnosis for this admission?: Yes (7) Urinary tract infection associated with indwelling urethral catheter Is this a current diagnosis for this admission?: Yes (8) Anemia Is this a current diagnosis for this admission?: Yes - Additional Information Resuscitation Status: Do Not Resuscitate Prescriptions: RX: Tramadol HCl [Ultram 50 mg Tablet] 50 mg PO Q8HP PRN #90 tablet PRN Reason: For Pain Fluticasone/Umeclidin/Vilanter [Trelegy 100-62.5-25 Mcg Ellipta 14 Dose/Dpi] 1 each NEB DAILY #100 inhaler Home Medications: Bumetanide [Bumex 1 mg Tablet] 1 mg PO Q12 03/06/18 Dicyclomine HCl [Bentyl 10 mg Capsule] 10 mg PO Q8 03/06/18 RX: Acetaminophen [Tylenol] 650 mg PO Q4HP PRN 03/06/18 RX: Amlodipine Besylate [Norvasc 2.5 mg Tablet] 2.5 mg PO DAILY 03/06/18 RX: Atorvastatin Calcium [Lipitor 40 mg Tablet] 40 mg PO DAILY 03/06/18 RX: Bethanechol Chloride 10 mg PO QAM 03/06/18 RX: Buspirone HCl [Buspar 15 mg Tablet] 7.5 mg PO BID 03/06/18 RX: Docusate Sodium [Colace] 100 mg PO DAILY 03/06/18 RX: Insulin Regular, Human [Humulin R (Reg) Insulin 100 unit/mL] 0 unit SUBCUT .SLD SCALE 03/06/18 RX: Ipratropium/Albuterol Sulfate [Duoneb 3 ml Ampul] 3 ml NEB RTTID 03/06/18 RX: Levothyroxine Sodium [Synthroid 0.025 mg Tablet] 25 mcg PO Q6AM 03/06/18 RX: Montelukast Sodium [Singulair 10 mg Tablet] 10 mg PO DAILY 03/06/18 RX: Omeprazole Magnesium [Prilosec Otc] 40 mg PO DAILY 03/06/18 RX: Ondansetron HCl [Zofran 4 mg Tablet] 1 tab PO Q6HP PRN 03/06/18 RX: Quetiapine Fumarate [Seroquel 100 mg Tablet] 150 mg PO Q12 03/06/18 RX: Quetiapine Fumarate [Seroquel] 400 mg PO QHS 03/06/18 RX: Sennosides/Docusate 8.6-50 mg [Senna Plus Tablet] 1 tab PO QHS 03/06/18 RX: Sertraline HCl [Zoloft 50 mg Tablet] 50 mg PO QAM 03/06/18 RX: Simethicone [Gas Relief 80] 80 mg PO Q8 03/06/18 Fluticasone/Umeclidin/Vilanter [Trelegy 100-62.5-25 Mcg Ellipta 14 Dose/Dpi] 1 each NEB DAILY #100 inhaler 03/22/18 RX: Roflumilast [Daliresp 500 Mcg Tablet] 500 mcg PO DAILY tablet 03/22/18 RX: Tramadol HCl [Ultram 50 mg Tablet] 50 mg PO Q8HP PRN #90 tablet 03/22/18 History of Present Illness Admission Date/PCP: 03/05/18 23:46 PRECIOUS BRUMFIELD MD History of Present Illness: BRYON BONILLA is a 57 year old female, she is a resident of the detention at [facility], I received a call from the detention staff that patient was stuporous, she has indwelling Tenorio catheter, the detention staff stated that the urine was very cloudy, suspicious for UTI. I advised the nursing most to call the blood for CBC and basic metabolic panel, the blood work demonstrated severe leukocytosis, severe hyponatremia, acute kidney injury, she was then r eferred to the emergency room for further evaluation and management. 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 In the emergency room she was started on fluid resuscitation, intravenous norepinephrine infusion, broad-spectrum antibiotic with Zosyn. There was associated acute kidney injury the BUN is 220, creatinine 5.29. I spoke to the patient and POA she stated that patient want to be DNR, she does not want any mechanical ventilation, chest compression. The last time she was in the hospital she required mechanical ventilation, she also had colonoscopy done at the time. She also has passage of melanotic stool Hospital Course Hospital Course: Patient was admitted for the management of septic shock, the blood culture grew Klebsiella pneumonia, the urine culture grew E. coli ESBL, Klebsiella oxytoca ESBL. She was treated with intravenous ertapenem. There was discrepancy between the pathogens that was cultured from the blood stream and also from the urine. She required vasopressor initially when she was admitted, she was treated with IV norepinephrine she also underwent fluid therapy for the management of septic shock she was initially managed in intensive care unit subsequently been graded to telemetry bed. She is a resident of the detention she had indwelling Tenorio catheter, this was inserted in the detention because of retention of urine for unknown etiology, she also has lower extremity weakness, this is probably neurologic in etiology she was successfully treated for the septic shock with full recovery, she was taken of the Tenorio catheter, she was encouraged to urinate on a consistent basis. She also was a DNR status on this admission. She will be discharged back to care home home today for continuity of care. She had anemia associated with sepsis she was treated with transfusion with red blood cells, total of 3 units she also had acute kidney injury in the setting of septic shock kidney function was restored with hydration. Physical Exam Vital Signs: Temp Pulse Resp BP Pulse Ox 98.0 F 92 18 115/65 97 03/22/18 11:46 03/22/18 14:06 03/22/18 14:06 03/22/18 11:46 03/22/18 14:06 Intake & Output 03/21/18 03/22/18 03/23/18 06:59 06:59 06:59 Intake Total 3210 2511 Output Total 275 Balance 3210 2236 Weight 67.4 kg 67.8 kg General appearance: PRESENT: no acute distress, well-developed, well-nourished Head exam: PRESENT: atraumatic, normocephalic Eye exam: PRESENT: conjunctiva pink, EOMI, PERRLA Ear exam: PRESENT: normal external ear exam Mouth exam: PRESENT: moist, tongue midline Respiratory exam: PRESENT: clear to auscultation wilfredo Cardiovascular exam: PRESENT: +S1, +S2 Vascular exam: PRESENT: normal capillary refill GI/Abdominal exam: PRESENT: normal bowel sounds, soft Rectal exam: PRESENT: deferred Extremities exam: PRESENT: full ROM Neurological exam: PRESENT: alert Psychiatric exam: PRESENT: appropriate affect, normal mood Skin exam: PRESENT: dry, intact, warm Results Laboratory Results: 03/21/18 19:00 03/21/18 19:00 03/21/18 03/21/18 19:00 19:00 WBC 5.1 RBC 2.76 L Hgb 8.4 L Hct 25.1 L MCV 91 MCH 30.4 MCHC 33.4 RDW 14.5 H Plt Count 248 Seg Neutrophils % 64.7 Lymphocytes % 17.0 Monocytes % 12.7 Eosinophils % 4.7 Basophils % 0.9 Absolute Neutrophils 3.3 Absolute Lymphocytes 0.9 Absolute Monocytes 0.6 Absolute Eosinophils 0.2 Absolute Basophils 0.0 Sodium 139.8 Potassium 3.5 L Chloride 99 Carbon Dioxide 35 H Anion Gap 6 BUN 8 Creatinine 0.59 Est GFR ( Amer) > 60 Est GFR (Non-Af Amer) > 60 Glucose 117 H Calcium 7.5 L Total Bilirubin 0.2 AST 10 L ALT 11 Alkaline Phosphatase 106 Total Protein 4.7 L Albumin 2.4 L 03/05/18 03/05/18 03/05/18 21:30 21:30 23:15 Creatine Kinase Cancelled 86 CK-MB (CK-2) 1.27 Troponin I 0.018 Impressions: Chest X-Ray 03/05/18 23:19 IMPRESSION: Interval line/tube modification. Qualifiers - * PATIENT BEING DISCHARGED WITH ANY OF THE FOLLOWING DIAGNOSIS: No
[2018-03-22] MEDS ORDERED: ONDANSETRON HCL INJ/PF 4 MG/2 ML SDV IV PRN (15:03)
[2018-03-22 16:48] VITALS: BP 105/47
== END 2018-03-22 20:44 | DRG 871 ==
LOC: ER 20:45 → EH 23:46 → ICU 03-06 11:06 → 3S 03-10 22:50 → 5 03-16 22:11
PROVIDERS: ADMIT Internal Medicine; ATTEND Internal Medicine
PROC: 05HY33Z Insertion of Infusion Device into Upper Vein, Percutaneous Approach (ICD-10-PCS; principal; 2018-03-05)
PROC: 30233N1 Transfusion of Nonautologous Red Blood Cells into Peripheral Vein, Percutaneous Approach (ICD-10-PCS; 2018-03-09)
PROC: 30233N1 Transfusion of Nonautologous Red Blood Cells into Peripheral Vein, Percutaneous Approach (ICD-10-PCS; 2018-03-12)
DX: A41.9 Sepsis, unspecified organism (principal); R65.21 Severe sepsis with septic shock; N17.9 Acute kidney failure, unspecified; T83.511A Infection and inflammatory reaction due to indwelling urethral catheter, initial encounter; N39.0 Urinary tract infection, site not specified; E87.1 Hypo-osmolality and hyponatremia; K92.2 Gastrointestinal hemorrhage, unspecified; E87.2 Acidosis; Z66 Do not resuscitate; D50.8 Other iron deficiency anemias; J44.9 Chronic obstructive pulmonary disease, unspecified; I10 Essential (primary) hypertension; E11.8 Type 2 diabetes mellitus with unspecified complications; R62.7 Adult failure to thrive; K21.9 Gastro-esophageal reflux disease without esophagitis; K44.9 Diaphragmatic hernia without obstruction or gangrene; G40.909 Epilepsy, unspecified, not intractable, without status epilepticus; D72.829 Elevated white blood cell count, unspecified; B96.1 Klebsiella pneumoniae [K. pneumoniae] as the cause of diseases classified elsewhere; R33.9 Retention of urine, unspecified; F20.9 Schizophrenia, unspecified; Z16.12 Extended spectrum beta lactamase (ESBL) resistance; Z68.25 Body mass index [BMI] 25.0-25.9, adult; Z87.891 Personal history of nicotine dependence; Z79.4 Long term (current) use of insulin; Z79.899 Other long term (current) drug therapy
CPT/HCPCS: 36415; 36430; 71045; 74176; 80048; 80053; 81001; 82272; 82550; 82553; 82607; 82728; 82746; 82803; 82962; 83036; 83540; 83550; 83605; 83735; 84132; 84439; 84443; 84484; 85025; 85027; 85045; 85610; 85730; 86850; 86900; 86901; 86920; 87040; 87045; 87077; 87086; 87088; 87186; 87205; 87493; 93005; 93010; 94640; 94660; 96374; 99291; C1751; J1335; J1642; J1644; J2543; J3475; J3480; J3490; J7030; J7060; J7120; J7620; P9016; S0164

== ENCOUNTER → 2018-05-12 | Outpatient (CLI) | payer MEDICAID ==
--- NOTE | 2018-05-12 10:17 | RADIOLOGY REPORT (SQ) ---
EXAM DESCRIPTION: KNEE RIGHT 4 VIEWS COMPLETED DATE/TIME: 05/12/2018 9:48 am REASON FOR STUDY: KNEE PAIN M79.671 PAIN IN RIGHT FOOT COMPARISON: None. NUMBER OF VIEWS: Four views. TECHNIQUE: AP, lateral, and both oblique radiographic images acquired of the right knee. LIMITATIONS: None. FINDINGS: MINERALIZATION: Normal. BONES: No acute fracture or dislocation. No worrisome bone lesions. JOINT: No effusion. SOFT TISSUES: No soft tissue swelling. No radio-opaque foreign body. OTHER: No other significant finding. IMPRESSION: NEGATIVE STUDY OF THE RIGHT KNEE. NO RADIOGRAPHIC EVIDENCE OF ACUTE INJURY. TECHNICAL DOCUMENTATION: JOB ID: [id number] [employer]- All Rights Reserved Reading location - IP/workstation name: [email or web address]
--- NOTE | 2018-05-12 10:17 | RADIOLOGY REPORT (SQ) ---
EXAM DESCRIPTION: ANKLE RIGHT COMPLETE COMPLETED DATE/TIME: 05/12/2018 9:48 am REASON FOR STUDY: ANKLE PAIN M79.671 PAIN IN RIGHT FOOT COMPARISON: None. NUMBER OF VIEWS: Three views. TECHNIQUE: AP, lateral, and oblique radiographic images acquired of the right ankle. LIMITATIONS: None. FINDINGS: MINERALIZATION: Osteopenia. BONES: No acute fracture or dislocation. No worrisome bone lesions. JOINTS: No effusions. SOFT TISSUES: No soft tissue swelling. No foreign body. OTHER: No other significant finding. IMPRESSION: Osteopenia. No acute fracture or dislocation. TECHNICAL DOCUMENTATION: JOB ID: [id number] [employer]- All Rights Reserved Reading location - IP/workstation name: [email or web address]
--- NOTE | 2018-05-12 10:18 | RADIOLOGY REPORT (SQ) ---
EXAM DESCRIPTION: FOOT RIGHT COMPLETE COMPLETED DATE/TIME: 05/12/2018 9:48 am REASON FOR STUDY: PAIN M79.671 PAIN IN RIGHT FOOT COMPARISON: None. NUMBER OF VIEWS: Three views. TECHNIQUE: AP, lateral and oblique without weight bearing radiographic images acquired of the right foot. LIMITATIONS: None. FINDINGS: MINERALIZATION: Osteopenia. BONES: No acute fracture or dislocation. No worrisome bone lesions. No significant osteophytes. JOINTS: No erosions. No chun-articular osteopenia. No chondrocalcinosis. SOFT TISSUES: No swelling. No calcifications. OTHER: No other significant finding. IMPRESSION: NEGATIVE STUDY OF THE RIGHT FOOT. NO EXPLANATION FOR PAIN. TECHNICAL DOCUMENTATION: JOB ID: [id number] [employer]- All Rights Reserved Reading location - IP/workstation name: [email or web address]
== END ==
LOC: RAD 09:17
PROVIDERS: ATTEND Internal Medicine
DX: M79.671 Pain in right foot (principal); M85.871 Other specified disorders of bone density and structure, right ankle and foot; M25.561 Pain in right knee

== ENCOUNTER → 2018-05-20 | Outpatient (CLI) | payer MEDICAID ==
--- NOTE | 2018-05-20 14:15 | RADIOLOGY REPORT (SQ) ---
EXAM DESCRIPTION: CT RT LOWER EXTREMITY WITHOUT COMPLETED DATE/TIME: 05/20/2018 12:56 pm REASON FOR STUDY: M24.271 DISORDER OF LIGAMENT, RIGHT ANKLE M24.271 DISORDER OF LIGAMENT, RIGHT ANK LE COMPARISON: X-ray dated 05/12/2018. TECHNIQUE: Axial imaging performed through the right ankle with reformatted coronal and sagittal jayshree ging windowed for bone and soft tissues. Images saved to PACS. 3D IMAGING: Were 3D images as MIP, SSD, or volume rendering performed at the work station? Yes. All CT scanners at this facility use dose modulation, iterative reconstruction, and/or weight based d osing when appropriate to reduce radiation dose to as low as reasonably achievable (ALARA). [facility]: Dose Right [facility]: CareDose [facility]: Dose Right [facility]: Teradose 4D [facility]: truedash LIMITATIONS: None. RADIATION DOSE: CT Rad equipment meets quality standard of care and radiation dose reduction techniq ues were employed. CTDIvol: 4.6 mGy. DLP: 103 mGy-cm. mGy. FINDINGS: SOFT TISSUES: No obvious swelling or foreign body. BONES: No acute fracture. No dislocation. MINERALIZATION: Normal. OTHER: No other significant finding. IMPRESSION: NO ACUTE OR SIGNIFICANT FINDING. IF THE PATIENT REMAINS SYMPTOMATIC OR THERE IS CLINICA L CONCERN, MAY CONSIDER MRI. TECHNICAL DOCUMENTATION: JOB ID: [id number] Quality ID # [id number]: Final reports with documentation of one or more dose reduction techniques (e.g., Au tomated exposure control, adjustment of the mA and/or kV according to patient size, use of iterative reconstruction technique) 2010 [employer]- All Rights Reserved Reading location - IP/workstation name: [email or web address]
== END ==
LOC: RAD 13:38
PROVIDERS: ATTEND Internal Medicine
DX: M24.271 Disorder of ligament, right ankle (principal)

== ENCOUNTER 2018-07-10 08:02 | Outpatient (CLI) | payer MEDICAID ==
[~2018-07-10 08:02] MED LIST changes: +ACETAMINOPHEN 325 MG TABLET PO PRN; +DEXTROSE 5%-WATER 250 ML IV PRN; +DIPHENHYDRAMINE HCL 50 MG in NORMAL SALINE 50 ML IV PRN; +FERRIC CARBOXYMALTOSE 750 MG in NORMAL SALINE 250 ML IV PRN; +IMMUNE GLOB,GAM CAPRYLATE(IGG) 20 GM in CONTAINER,EMPTY 1 EACH IV PRN; +NORMAL SALINE 250 ML IV PRN; -ROCURONIUM BROMIDE INJ 50 MG/5 ML VIAL IV ONE
[2018-07-10 08:53] VITALS: BP 99/30
[2018-07-10] MEDS ORDERED: DIPHENHYDRAMINE HCL 50 MG/ML VIAL ONE (10:38)
[2018-07-10] MEDS ORDERED: DEXAMETHASONE SOD PHOSPHATE INJ 4 MG/1 ML VIAL ONE (10:39)
[2018-07-10] MEDS ORDERED: ALBUTEROL SULFATE 0.083% NEB 2.5 MG/3 ML AMPUL NEB ONE ×2 (11:13→11:15)
[2018-07-10] MEDS ORDERED: DIPHENHYDRAMINE HCL 50 MG/ML VIAL IV ONE (11:15)
[2018-07-10] MEDS ORDERED: DEXAMETHASONE SOD PHOS INJ 10 MG/1 ML VIAL IV ONE (11:15)
[2018-07-10] MEDS ORDERED: ALBUTEROL SULFATE 0.083% NEB 2.5 MG/3 ML AMPUL NEB SCH (14:00)
== END 2018-07-10 15:00 ==
LOC: II 08:02 → 5TH 08:04 → II 15:00
PROVIDERS: ATTEND Internal Medicine Hematology & Oncology
PROC: 30233S1 Transfusion of Nonautologous Globulin into Peripheral Vein, Percutaneous Approach (ICD-10-PCS; principal; 2018-07-10)
PROC: 3E033GC Introduction of Other Therapeutic Substance into Peripheral Vein, Percutaneous Approach (ICD-10-PCS; 2018-07-10)
DX: D80.1 Nonfamilial hypogammaglobulinemia (principal); D50.9 Iron deficiency anemia, unspecified; K90.9 Intestinal malabsorption, unspecified; R05 Cough
CPT/HCPCS: 82962; 94640; 96413; 96415; 96365; 96367; 96374; 96375; 96360; 96417; J1561; J3490 ×2; J1100; J1200; J7050; J1439; 96366

== ENCOUNTER → 2018-07-15 | Outpatient (CLI) | payer MEDICAID ==
--- NOTE | 2018-07-15 16:57 | RADIOLOGY REPORT (SQ) ---
EXAM DESCRIPTION: MRI RT LOWER JOINT WITHOUT COMPLETED DATE/TIME: 07/15/2018 4:04 pm REASON FOR STUDY: M24.271 DISORDER OF LIGAMENT, RIGHT ANKLE M24.271 DISORDER OF LIGAMENT, RIGHT ANK LE COMPARISON: 05/12/[address] 05/20/2018. TECHNIQUE: Right ankle images acquired and stored on PACS. Multiplanar images include fat sensitive sequences as T1, fluid sensitive sequences as FST2/STIR, cartilage sensitive sequences as FSPD, and g radient echo sequences. LIMITATIONS: Limited clinical history. Sub optimal positioning, relatively plantar flexed. FINDINGS: BONE MARROW: No alteration of signal to suggest marrow replacement or edema. No occult fra cture. No large osteophytes. EFFUSIONS: No subtalar or tibiotalar effusions. No loose bodies. OSSEOUS ARTICULATIONS: Normal tibiotalar, subtalar, talonavicular and calcaneocuboid joints. TALAR DOME AND TIBIAL PLAFOND: No talar dome lesions. Probable mild superomedial mortise narrowing. ACHILLES TENDON: Intact without partial or full-thickness tear. No adjacent bursal fluid or edema. TIBIALIS ANTERIOR TENDON: Intact without edema at the 1st MT attachment. TIBIALIS POSTERIOR TENDON: Normal morphology and no edema at the navicular attachment. No tendon huang th fluid. FLEXOR HALLUCIS LONGUS AND FLEXOR DIGITORUM TENDONS: Normal morphology and no tendon sheath fluid. No edema of the os trigonum. PERONEUS LONGUS AND BREVIS TENDON: Normal morphology and no tendon sheath fluid. No subluxation. ATFL, CFL, PTFL: Intact. No thickening or signal alteration. No chun-ligamentous fluid. DELTOID LIGAMENT: Visualized components intact. TARSAL TUNNEL: No masses. No muscle atrophy. SINUS TARSI: No fluid. No reactive marrow edema or erosions. PLANTAR FASCIA: No signal alteration or tear. ADJACENT SOFT TISSUES: No masses. OTHER: No other significant finding. IMPRESSION: No acute or suspicious findings on MRI evaluation of the ankle. There may be mild morti se narrowing. Bones and ligaments and tendons are generally intact, however. Less than optimal posi tioning noted. TECHNICAL DOCUMENTATION: JOB ID: [id number]- All Rights Reserved Reading location - IP/workstation name: [email or web address]
== END ==
LOC: RAD 15:45
PROVIDERS: ATTEND Internal Medicine
DX: M24.271 Disorder of ligament, right ankle (principal)

== ENCOUNTER 2018-08-06 08:06 | Day surgery (SDC) | payer MEDICAID ==
[~2018-08-06 08:06] MED LIST changes: -ACETAMINOPHEN 325 MG TABLET PO PRN; -DEXTROSE 5%-WATER 250 ML IV PRN; -DIPHENHYDRAMINE HCL 50 MG in NORMAL SALINE 50 ML IV PRN; -FERRIC CARBOXYMALTOSE 750 MG in NORMAL SALINE 250 ML IV PRN; -IMMUNE GLOB,GAM CAPRYLATE(IGG) 20 GM in CONTAINER,EMPTY 1 EACH IV PRN; +KETOROLAC TROMETHAMINE 0.45% 4 DROP/0.4 ML DROPERETTE OS PRN; -NORMAL SALINE 250 ML IV PRN
[2018-08-06] MEDS ORDERED: MIDAZOLAM 2 MG/2 ML INJ ONE (08:24)
[2018-08-06] MEDS: TROPICAMIDE 1% OPH SOLN 3 ML OS PRN ×3 (09:05→09:25)
[2018-08-06] MEDS: BESIFLOXACIN HCL 0.6% OPH SUSP 5 ML BOTTLE OS PRN ×4 (09:05→09:43)
[2018-08-06] MEDS: CYCLOPENTOLATE 0.2%/PHENYLEPHRINE 1% OPH SOLN 2 ML OS PRN ×3 (09:05→09:25)
[2018-08-06] MEDS: TETRACAINE HCL 0.5% OPH SOLN 0.6 ML DROPERETTE OS PRN ×4 (09:05→09:28)
[2018-08-06] MEDS ORDERED: ALBUTEROL SULFATE 0.083% NEB 2.5 MG/3 ML AMPUL NEB ONE (09:09)
[2018-08-06] MEDS: LIDOCAINE 1% INJ-PF (10 MG/ML) 30 ML SDV ONE ×2 (09:35)
[2018-08-06] MEDS: CHONDR SU A NA/HYALUR INTRAOC KIT (SURGICARE) ONE ×2 (09:35)
[2018-08-06] MEDS: EPINEPHRINE INJ/PF 1 MG/1 ML AMPULE ONE ×2 (09:35)
[2018-08-06] MEDS: TOBRAMYCIN SULFATE/DEXAMETH OPH OINTMENT 3.5 GM ONE ×2 (09:43)
== END 2018-08-06 10:28 ==
LOC: SC 08:06
PROVIDERS: ATTEND Ophthalmology
DX: H25.12 Age-related nuclear cataract, left eye (principal); J44.9 Chronic obstructive pulmonary disease, unspecified; I25.10 Atherosclerotic heart disease of native coronary artery without angina pectoris; E11.9 Type 2 diabetes mellitus without complications; I10 Essential (primary) hypertension; E78.00 Pure hypercholesterolemia, unspecified; E03.9 Hypothyroidism, unspecified; D64.9 Anemia, unspecified; K21.9 Gastro-esophageal reflux disease without esophagitis; Z79.51 Long term (current) use of inhaled steroids; Z79.899 Other long term (current) drug therapy; Z87.891 Personal history of nicotine dependence; Z88.8 Allergy status to other drugs, medicaments and biological substances
CPT/HCPCS: 82962; 66984; V2632; J2250; J3490 ×5; J0171; 142

== ENCOUNTER 2018-08-20 06:45 | Day surgery (SDC) | payer MEDICAID ==
[~2018-08-20 06:45] MED LIST changes: +KETOROLAC TROMETHAMINE 0.45% 4 DROP/0.4 ML DROPERETTE OD PRN; -KETOROLAC TROMETHAMINE 0.45% 4 DROP/0.4 ML DROPERETTE OS PRN
[2018-08-20] MEDS: TETRACAINE HCL 0.5% OPH SOLN 0.6 ML DROPERETTE OD PRN ×3 (07:04→07:51)
[2018-08-20] MEDS: BESIFLOXACIN HCL 0.6% OPH SUSP 5 ML BOTTLE OD PRN ×3 (07:05→08:13)
[2018-08-20] MEDS: CYCLOPENTOLATE 0.2%/PHENYLEPHRINE 1% OPH SOLN 2 ML OD PRN ×3 (07:05→07:30)
[2018-08-20] MEDS: TROPICAMIDE 1% OPH SOLN 3 ML OD PRN ×3 (07:05→07:30)
[2018-08-20] MEDS ORDERED: CHONDR SU A NA/HYALUR INTRAOC KIT (SURGICARE) ONE (07:06)
[2018-08-20] MEDS ORDERED: LIDOCAINE 1% INJ-PF (10 MG/ML) 30 ML SDV ONE (07:06)
[2018-08-20] MEDS ORDERED: TOBRAMYCIN SULFATE/DEXAMETH OPH OINTMENT 3.5 GM ONE (07:06)
[2018-08-20] MEDS ORDERED: EPINEPHRINE INJ/PF 1 MG/1 ML AMPULE ONE (07:06)
[2018-08-20] MEDS ORDERED: FENTANYL CITRATE INJ/PF 100 MCG/2 ML AMPUL ONE (07:33)
[2018-08-20] MEDS ORDERED: MIDAZOLAM 2 MG/2 ML INJ ONE (07:33)
== END 2018-08-20 08:56 | disposition home or self-care (01) ==
LOC: SC 06:45
PROVIDERS: ATTEND Ophthalmology
DX: H25.11 Age-related nuclear cataract, right eye (principal); J44.9 Chronic obstructive pulmonary disease, unspecified; E11.9 Type 2 diabetes mellitus without complications; K21.9 Gastro-esophageal reflux disease without esophagitis; E78.00 Pure hypercholesterolemia, unspecified; E03.9 Hypothyroidism, unspecified; D64.9 Anemia, unspecified; Z99.81 Dependence on supplemental oxygen; Z79.51 Long term (current) use of inhaled steroids; Z79.899 Other long term (current) drug therapy; Z87.891 Personal history of nicotine dependence
CPT/HCPCS: 66984; 82962; V2632; J2250; J3490 ×5; J0171; J3010

== ENCOUNTER → 2018-09-01 | Outpatient (CLI) | payer MEDICAID ==
--- NOTE | 2018-09-01 11:40 | RADIOLOGY REPORT (SQ) ---
EXAM DESCRIPTION: CHEST 2 VIEWS COMPLETED DATE/TIME: 09/01/2018 11:06 am REASON FOR STUDY: PULMONARY INFILTRATE (R91.8), HYPOXEMIA (R09.02), PULMONARY NODULE (R91.1) COMPARISON: None. EXAM PARAMETERS: NUMBER OF VIEWS: two views TECHNIQUE: Digital Frontal and Lateral radiographic views of the chest acquired. RADIATION DOSE: NA LIMITATIONS: none FINDINGS: LUNGS AND PLEURA: Hyperinflation of the lungs, attenuation of the vessels and some flatte judy of the diaphragms. No acute pulmonary consolidation. No pneumothorax or pleural effusion. MEDIASTINUM AND HILAR STRUCTURES: No masses or contour abnormalities. HEART AND VASCULAR STRUCTURES: Heart normal size. No evidence for failure. BONES: No acute findings. HARDWARE: None in the chest. OTHER: No other significant finding. IMPRESSION: 1. Findings as above suggest COPD. No acute findings. TECHNICAL DOCUMENTATION: JOB ID: [id number] [employer]- All Rights Reserved Reading location - IP/workstation name: [email or web address]
== END ==
LOC: RAD 10:34
PROVIDERS: ATTEND Internal Medicine Critical Care Medicine
DX: G47.34 Idiopathic sleep related nonobstructive alveolar hypoventilation (principal); R09.02 Hypoxemia; R91.8 Other nonspecific abnormal finding of lung field; R91.1 Solitary pulmonary nodule; Z72.0 Tobacco use; E03.9 Hypothyroidism, unspecified; R04.2 Hemoptysis; J44.9 Chronic obstructive pulmonary disease, unspecified; J45.998 Other asthma
CPT/HCPCS: 71046

== ENCOUNTER → 2018-09-30 | Outpatient (CLI) | payer MEDICAID ==
--- NOTE | 2018-09-30 14:36 | RADIOLOGY REPORT (SQ) ---
EXAM DESCRIPTION: CT CHEST WITHOUT COMPLETED DATE/TIME: 09/30/2018 1:16 pm REASON FOR STUDY: HEMOPTYSIS (R04.2), HYPOXEMIA (R09.02), PULMONARY INFILTRATE (R91.8) R91.1 SOLITA RY PULMONARY NODULE COMPARISON: CT chest 02/19/2017, 02/07/2017, 02/09/2015, 02/22/2014, 02/24/2013 CT abdomen pelvis 03/05/2018, 01/04/2018 TECHNIQUE: CT scan performed of the chest without intravenous contrast. Images reviewed with lung, soft tissue and bone windows. Reconstructed coronal and sagittal MPR images reviewed. All images st ored on PACS. All CT scanners at this facility use dose modulation, iterative reconstruction, and/or weight based d osing when appropriate to reduce radiation dose to as low as reasonably achievable (ALARA). [facility]: Dose Right [facility]: CareDose [facility]: Dose Right [facility]: Teradose 4D [facility]: DSI MET-TECH RADIATION DOSE: CT Rad equipment meets quality standard of care and radiation dose reduction techniq ues were employed. CTDIvol: 6.2 mGy. DLP: 237 mGy-cm. mGy. LIMITATIONS: No technical limitations. FINDINGS: LUNGS AND PLEURA: End-stage appearance of obstructive lung disease, with diffuse enlargeme nt of airspaces. No worrisome pulmonary nodules. No acute infiltrates. No pleural effusion. No pn eumothorax. HILAR AND MEDIASTINAL STRUCTURES: Moderate size retrocardiac hiatal hernia. No mediastinal masses or adenopathy HEART AND VASCULAR STRUCTURES: No aneurysm. No pericardial effusion. Moderate LAD calcification UPPER ABDOMEN: Post cholecystectomy. There is moderate bilateral hydronephrosis on axial image 64. Similar compared to CT exam 03/05/2018, 01/04/2018 THYROID AND OTHER SOFT TISSUES: No masses. No adenopathy. BONES: No significant finding. HARDWARE: None in the chest. OTHER: No other significant findings. IMPRESSION: Obstructive lung disease. TECHNICAL DOCUMENTATION: JOB ID: [id number] Quality ID # [id number]: Final reports with documentation of one or more dose reduction techniques (e.g., Au tomated exposure control, adjustment of the mA and/or kV according to patient size, use of iterative reconstruction technique) 2010 [employer]- All Rights Reserved Reading location - IP/workstation name: [email or web address]
== END ==
LOC: RAD 12:48
PROVIDERS: ATTEND Internal Medicine Critical Care Medicine
DX: R04.2 Hemoptysis (principal); R09.02 Hypoxemia; R91.8 Other nonspecific abnormal finding of lung field; G47.34 Idiopathic sleep related nonobstructive alveolar hypoventilation; Z87.01 Personal history of pneumonia (recurrent); J44.9 Chronic obstructive pulmonary disease, unspecified; G47.30 Sleep apnea, unspecified; J45.909 Unspecified asthma, uncomplicated; R91.1 Solitary pulmonary nodule; Z72.0 Tobacco use; K21.9 Gastro-esophageal reflux disease without esophagitis
CPT/HCPCS: 71250

== ENCOUNTER 2018-11-07 14:18 | Inpatient (IN) | payer MEDICAID ==
--- NOTE | 2018-11-07 15:02 | ER Document Report ---
ED General - General Stated Complaint: DIFFICULTY BREATHING Time Seen by Provider: 11/07/18 14:47 Notes: Patient is a 57-year-old female with advanced COPD that presents to the emergency department for chief complaint of shortness of breath or difficulty breathing. Patient states she is been having cough, shortness of breath for the past several days, getting progressively worse. She states she is usually on 3 L nasal cannula all the time, she is been doing her usual breathing treatments without much improvement, she is currently at a [facility] facility, and they sent her over because she was not improving. She denies noting any blood in her sputum, and denies having any chest pain, but admits to having some lower rib pain bilaterally, that is worse with coughing. She is not able to produce any sputum when she does cough however. She denies any lightheadedness, dizziness, nausea, vomiting or abdominal pain. She currently rates her pain as a 4 out of 10 describes as an aching sensation is noted worse with a cough. Past Medical History: COPD, chronic kidney disease, GERD Past Surgical History: Denies any recent or pertinent surgical history Social History: Former smoker, denies alcohol or drug use. Family History: Reviewed and noncontributory for presenting illness Allergies: Reviewed, see documented allergy list. REVIEW OF SYSTEMS: Other than noted above, the 12 point review of systems was reviewed with the patient and were negative, all pertinent findings are included in the HPI. PHYSICAL EXAMINATION: Vital signs reviewed, nursing noted reviewed. GENERAL: Appears older than stated age and in mild to moderate respiratory di stress. HEAD: Atraumatic, normocephalic. EYES: Eyes appear normal, extraocular movements intact, sclera anicteric, conjunctiva are normal. ENT: nares patent, oropharynx clear without exudates. Moist mucous membranes. NECK: Normal range of motion, supple without lymphadenopathy LUNGS: Severely diminished lung sounds noted with increased work of breathing noted. HEART: Heart rate tachycardic, regular rhythm no audible murmurs noted. ABDOMEN: Soft, obese, nontender, normoactive bowel sounds. No rebound, guarding, or rigidity. No masses appreciated. EXTREMITIES: Nontender, good range of motion, no pitting or edema. NEUROLOGICAL: No focal neurological deficits. Moves all extremities spontaneously Motor and sensory grossly intact on exam. PSYCH: Appears anxious on exam, but answering questions appropriately. SKIN: Warm, Dry, normal turgor, no rashes or lesions noted on exposed skin TRAVEL OUTSIDE OF THE [place] IN LAST 30 DAYS: No - Related Data Allergies/Adverse Reactions: clarithromycin [From Biaxin] Allergy (Severe, Verified 12/26/17 19:20) TONGUE/THROAT SWELLING furosemide [From Lasix] Allergy (Intermediate, Verified 12/26/17 19:20) UNSURE venlafaxine HCl [From Effexor] Allergy (Intermediate, Verified 12/26/17 19:20) MUSCLE WEAKNESS adhesive tape Allergy (Verified 12/26/17 19:20) RASH divalproex sodium [From Depakote] Allergy (Verified 12/26/17 19:20) UNSURE Past Medical History - Social History Smoking Status: Former Smoker Family History: CAD, COPD, Hypertension, Malignancy - Past Medical History Cardiac Medical History: Reports: Hx Hypertension Denies: Hx Coronary Artery Disease, Hx Heart Attack Pulmonary Medical History: Reports: Hx Asthma, Hx Bronchitis, Hx COPD, Hx Pneumonia Denies: Hx Tuberculosis Neurological Medical History: Reports: Hx Seizures. Denies: Hx Cerebrovascular Accident Endocrine Medical History: Reports: Hx Diabetes Mellitus Type 2 Renal/ Medical History: Denies: Hx Peritoneal Dialysis GI Medical History: Reports: Hx Gastroesophageal Reflux Disease, Hx Hiatal Hernia, Hx Ulcer - UMBILICAL. Denies: Hx Hepatitis Musculoskeletal Medical History: Reports Hx Arthritis Psychiatric Medical History: Reports: Hx Depression, Hx Schizoaffective Disord er, Hx Schizophrenia Infectious Medical History: Denies: Hx Hepatitis Past Surgical History: Reports: Hx Abdominal Surgery, Hx Appendectomy, Hx Hang an Section, Hx Cholecystectomy, Hx Hysterectomy, Other - Nate fundoplication, ventral herniorraphy 15 yrs ago. Denies: Hx Mastectomy, Hx Open Heart Surgery, Hx Pacemaker - Immunizations Hx Diphtheria, Pertussis, Tetanus Vaccination: No Hx Pneumococcal Vaccination: 01/30/13 Physical Exam - Vital signs Vitals: Pulse Ox 100 11/07/18 15:30 Course - Re-evaluation Re-evalutation: Patient seen and examined vital signs reviewed. Laboratory data and imaging were ordered as appropriate for the patient's presenting symptoms and complaint, with consideration of any critical or life threatening conditions that may be associated with their obtained history and exam as noted above. Patient was treated with duo neb breathing treatments, corticosteroids, iv magnesium and bipap therapy Results were reviewed when available and demonstrated hypercapnia and mild leukocytosis with CXR concerning for pneumonia. The patient was re-evaluated and was improving after breathing treatments, but started on bipap therapy due to hypercapnia and was tolerating well and work of breathing was improved. Evaluation was most consistent with acute on chronic respiratory failure with underlying pneumonia, patient was started on IV cefepime to cover for pna. Results were discussed with the patient at this point after careful consideration I feel that that patient should be admitted to the hospital. This was discussed with the patient that it is in the best interest for their care to be admitted for further evaluation and management. Patient agreed with this plan of care. A call was placed to the admitting provider Deon Rodriguez PA-C who graciously accepted the patient onto their service. *Note is created using voice recognition software and may contain spelling, syntax or grammatical errors. Laboratory 11/07/18 11/07/18 11/07/18 17:20 17:20 17:20 WBC 12.2 H RBC 3.64 L Hgb 11.7 L Hct 35.1 L MCV 97 MCH 32.3 MCHC 33.5 RDW 12.1 Plt Count 248 Seg Neutrophils % 78.8 H Lymphocytes % 9.9 L Monocytes % 9.6 Eosinophils % 1.3 Basophils % 0.4 Absolute Neutrophils 9.6 H Absolute Lymphocytes 1.2 Absolute Monocytes 1.2 Absolute Eosinophils 0.2 Absolute Basophils 0.0 PT 13.4 INR 1.02 Carbonic Acid HCO3/H2CO3 Ratio ABG pH ABG pCO2 ABG pO2 ABG HCO3 ABG Total CO2 ABG O2 Saturation ABG Base Excess VBG pH VBG pCO2 VBG HCO3 VBG Base Excess FiO2 Sodium 137.9 Potassium 4.2 Chloride 94 L Carbon Dioxide 35 H Anion Gap 9 BUN 14 Creatinine 0.56 Est GFR ( Amer) > 60 Est GFR (Non-Af Amer) > 60 Glucose 98 Calcium 9.7 Total Bilirubin 0.6 Direct Bilirubin 0.4 Neonat Total Bilirubin Not Reportable Neonat Direct Bilirubin Not Reportable Neonat Indirect Bili Not Reportable AST 24 ALT 18 Alkaline Phosphatase 117 Troponin I NT-Pro-B Natriuret Pep Total Protein 6.9 Albumin 4.3 11/07/18 11/07/18 11/07/18 17:20 18:00 18:40 WBC RBC Hgb Hct MCV MCH MCHC RDW Plt Count Seg Neutrophils % Lymphocytes % Monocytes % Eosinophils % Basophils % Absolute Neutrophils Absolute Lymphocytes Absolute Monocytes Absolute Eosinophils Absolute Basophils PT INR Carbonic Acid 1.55 H HCO3/H2CO3 Ratio 18:1 ABG pH 7.37 ABG pCO2 51.6 H ABG pO2 88.2 ABG HCO3 29.4 H ABG Total CO2 31.0 H ABG O2 Saturation 96.4 ABG Base Excess 3.3 VBG pH 7.34 VBG pCO2 67.6 H* VBG HCO3 35.5 H VBG Base Excess 7.4 FiO2 30% Sodium Potassium Chloride Carbon Dioxide Anion Gap BUN Creatinine Est GFR ( Amer) Est GFR (Non-Af Amer) Glucose Calcium Total Bilirubin Direct Bilirubin Neonat Total Bilirubin Neonat Direct Bilirubin Neonat Indirect Bili AST ALT Alkaline Phosphatase Troponin I < 0.012 NT-Pro-B Natriuret Pep 42 Total Protein Albumin Chest X-Ray 11/07/18 15:02 IMPRESSION: Emphysema. There is a subtle heterogeneous opacity of the left lung base suggestive of infection or aspiration. Consider follow-up PA and lateral radiographs in 1 to 2 days to observe for interval development if indicated by clinical concern. - Vital Signs Vital signs: Temp Pulse Resp BP Pulse Ox 26 H 135/77 H 100 11/07/18 18:40 11/07/18 16:01 11/07/18 18:40 - Laboratory Result Diagrams: 11/07/18 17:20 11/07/18 17:20 Laboratory results interpreted by me: 11/07/18 11/07/18 11/07/18 17:20 17:20 18:00 WBC 12.2 H RBC 3.64 L Hgb 11.7 L Hct 35.1 L Seg Neutrophils % 78.8 H Lymphocytes % 9.9 L Absolute Neutrophils 9.6 H Carbonic Acid ABG pCO2 ABG HCO3 ABG Total CO2 VBG pCO2 67.6 H* VBG HCO3 35.5 H Chloride 94 L Carbon Dioxide 35 H 11/07/18 18:40 WBC RBC Hgb Hct Seg Neutrophils % Lymphocytes % Absolute Neutrophils Carbonic Acid 1.55 H ABG pCO2 51.6 H ABG HCO3 29.4 H ABG Total CO2 31.0 H VBG pCO2 VBG HCO3 Chloride Carbon Dioxide - EKG Interpretation by Me Additional EKG results interpreted by me: EKG demonstrates sinus tachycardia with a ventricular rate of 106 bpm, normal axis, normal intervals, no evidence of acute ischemia in this EKG. Critical Care Note - Critical Care Note Total time excluding time spent on procedures (mins): 35 Comments: Critical care time 35 minutes exclusive from separate billable procedures for a patient requiring complex medical decision making, and high potential for clinical deterioration. In a patient with acute on chronic respiratory failure requiring bipap therapy and admission to hospital for further evaluation and management. Time spent obtaining history from patient or surrogate, discussions with consultants, development of treatment plan with patient or surrogate, evaluation of patient's response to treatment, examination of patient, ordering and performing treatments and interventions, ordering and review of laboratory studies, re-evaluation of patient's condition, ordering and review of radiographic studies and review of old charts Discharge - Discharge Clinical Impression: Acute and chronic respiratory failure Qualifiers: Respiratory failure complication: hypercapnia Qualified Code(s): J96.22 - Acute and chronic respiratory failure with hypercapnia Pneumonia Qualifiers: Pneumonia type: due to unspecified organism Laterality: left Lung location: lower lobe of lung Qualified Code(s): J18.1 - Lobar pneumonia, unspecified organism Condition: Serious Disposition: ADMITTED INPATIENT Admitting Provider: Johan (Hospitalist) - Deon BHATIA[facility] Unit Admitted: [facility]
[2018-11-07] MEDS ORDERED: IPRATROPIUM/ALBUTEROL 0.5-2.5 MG/3 ML AMPUL NEB ONE (15:03)
[2018-11-07] MEDS ORDERED: METHYLPREDNISOLONE INJ 125 MG/2 ML SDV IV ONE ×2 (15:04→19:03)
[2018-11-07] MEDS ORDERED: MAGNESIUM SULFATE/D5W 1 GM/100 ML RTUPB IV ONE (15:04)
--- NOTE | 2018-11-07 16:07 | RADIOLOGY REPORT (SQ) ---
EXAM DESCRIPTION: CHEST SINGLE VIEW COMPLETED DATE/TIME: 11/07/2018 3:55 pm REASON FOR STUDY: shortness of breath COMPARISON: 09/01/2018 EXAM PARAMETERS: NUMBER OF VIEWS: One view. TECHNIQUE: Single frontal radiographic view of the chest acquired. RADIATION DOSE: NA LIMITATIONS: None. FINDINGS: LUNGS AND PLEURA: Emphysema. There is a subtle heterogeneous opacity of the left lung bas e. MEDIASTINUM AND HILAR STRUCTURES: No masses. Contour normal. HEART AND VASCULAR STRUCTURES: Heart normal in size. Normal vasculature. BONES: No acute findings. HARDWARE: None in the chest. OTHER: No other significant finding. IMPRESSION: Emphysema. There is a subtle heterogeneous opacity of the left lung base suggestive of infection or aspiration. Consider follow-up PA and lateral radiographs in 1 to 2 days to observe for interval development if indicated by clinical concern. TECHNICAL DOCUMENTATION: JOB ID: [id number] [employer]- All Rights Reserved Reading location - IP/workstation name: [email or web address]
[2018-11-07] MEDS ORDERED: CEFEPIME 1 GM/D5W RTU 1 GM/50 ML RTUPB IV ONE (17:33)
[2018-11-07] MEDS ORDERED: MORPHINE SULFATE 10 MG/ML INJ IV ONE (17:33)
[2018-11-07] MEDS ORDERED: ONDANSETRON HCL INJ/PF 4 MG/2 ML SDV IV ONE (17:33)
[2018-11-07 17:39] LABS: ABSOLUTE EOSINOPHILS # (AUTO) 0.2 10^3/uL (0.0-0.6); ABSOLUTE LYMPHOCYTES (AUTO) 1.2 10^3/uL (0.5-4.7); ABSOLUTE MONOCYTES (AUTO) 1.2 10^3/uL (0.1-1.4); ABSOLUTE NEUT (AUTO) 9.6 10^3/uL (1.7-8.2); BASOPHILS % (AUTO) 0.4 % (0-2); EOSINOPHILS % (AUTO) 1.3 % (0-6); HEMATOCRIT 35.1 % (36.0-47.0); HEMOGLOBIN 11.7 g/dL (12.0-15.5); LYMPHOCYTES % (AUTO) 9.9 % (13-45); MEAN CORPUSCULAR HEMOGLOBIN 32.3 pg (27.0-33.4); MEAN CORPUSCULAR HGB CONC 33.5 g/dL (32.0-36.0); MEAN CORPUSCULAR VOLUME 97 fl (80-97); MONOCYTES % (AUTO) 9.6 % (3-13); PLATELET COUNT 248 10^3/uL (150-450); RED BLOOD COUNT 3.64 10^6/uL (3.72-5.28); RED CELL DISTRIBUTION WIDTH 12.1 % (11.5-14.0); SEGMENTED NEUTROPHILS % (AUTO) 78.8 % (42-78); TOTAL CELLS COUNTED % (AUTO) 100 %; WHITE BLOOD COUNT 12.2 10^3/uL (4.0-10.5)
[2018-11-07 17:48] LABS: INTERNATIONAL RATION (INR) 1.02; PROTHROMBIN TIME 13.4 SEC (11.4-15.4)
[2018-11-07 18:02] LABS: ALBUMIN 4.3 g/dL (3.5-5.0); ALKALINE PHOSPHATASE 117 U/L (38-126); ANION GAP 9 (5-19); ASPARTATE AMINO TRANSFERASE 24 U/L (14-36); BILIRUBIN,DIRECT 0.4 mg/dL (0.0-0.4); BILIRUBIN,TOTAL 0.6 mg/dL (0.2-1.3); BLOOD UREA NITROGEN 14 mg/dL (7-20); CALCIUM 9.7 mg/dL (8.4-10.2); CARBON DIOXIDE 35 mmol/L (22-30); CHLORIDE 94 mmol/L (98-107); GLUCOSE 98 mg/dL (75-110); POTASSIUM 4.2 mmol/L (3.6-5.0); TOTAL PROTEIN 6.9 g/dL (6.3-8.2)
[2018-11-07 18:14] LABS: NT PRO BNP 42 pg/mL (5-900)
[2018-11-07 18:17] LABS: TROPONIN I < 0.012 ng/mL
[2018-11-07 18:23] LABS: VENOUS BLOOD BASE EXCESS 7.4 mmol/L; VENOUS BLOOD HCO3 35.5 mmol/L (20-32); VENOUS BLOOD PH 7.34 (7.30-7.42)
[2018-11-07 18:26] LABS: VENOUS BLOOD PCO2 67.6 mmHg (35-63)
--- NOTE | 2018-11-07 19:07 | Progress Note Acknowledgement ---
Progress Note Acknowledgement Progess Note Acknowledgement: I, the undersigned member of the medical staff with appropriate privileges and with supervisory authority over [ PAC ], a dependent practice allied health professional, acknowledge that I have reviewed the progress notes entered on this patient, and in my professional judgment believe that the assessment made and/or any care evidenced was appropriate
--- NOTE | 2018-11-07 19:10 | EKG REPORT ---
SEVERITY:- BORDERLINE ECG - SINUS TACHYCARDIA BORDERLINE T ABNORMALITIES, ANT-LAT LEADS : Confirmed by: Vadim Rayo MD 07-Nov-2018 19:09:33
--- NOTE | 2018-11-07 19:13 | PDOC H&P ---
History of Present Illness Admission Date/PCP: 11/07/18 18:53 SHARON SMITH MD 87-year-old female comes from local [facility] with a COPD exacerbation according to the patient is been going on for about a week but yesterday got worse. 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 She states that she is incontinent of bowel and bladder she has bilateral foot drops, the patient states she is never had an MRI scan of her back. She does complain of scoliosis in her back. Patient may complaint come to the emergency room is COPD exacerbation which is been going on for about a week and got really bad in the last day. Patient denies fever or chills. Past Medical History Cardiac Medical History: Reports: Hypertension Denies: Coronary Artery Disease, Myocardial Infarction Pulmonary Medical History: Reports: Asthma, Bronchitis, Chronic Obstructive Pulmonary Disease (COPD), Pneumonia Denies: Tuberculosis Neurological Medical History: Reports: Seizures Endocrine Medical History: Reports: Diabetes Mellitus Type 2 GI Medical History: Reports: Gastroesophageal Reflux Disease, Hiatal Hernia Denies: Hepatitis Musculoskeltal Medical History: Reports: Arthritis Psychiatric Medical History: Reports: Depression, Schizoaffective Disorder Hematology: Denies: Anemia, Sickle Cell Disease Past Surgical History Past Surgical History: Reports: Appendectomy, Section, Cholecystectomy, Hysterectomy, Other - Nate fundoplication, ventral herniorraphy 15 yrs ago Denies: Amputation, Mastectomy, Pacemaker Social History Smoking Status: Former Smoker Frequency of Alcohol Use: None Hx Recreational Drug Use: No Drugs: None Hx Prescription Drug Abuse: No - Advance Directive Resuscitation Status: Full Code Family History Family History: CAD, COPD, Hypertension, Malignancy Parental Family History Reviewed: No Children Family History Reviewed: No Sibling(s) Family History Reviewed.: No Medication/Allergy Allergies/Adverse Reactions: clarithromycin [From Biaxin] Allergy (Severe, Verified 12/26/17 19:20) TONGUE/THROAT SWELLING furosemide [From Lasix] Allergy (Intermediate, Verified 12/26/17 19:20) UNSURE venlafaxine HCl [From Effexor] Allergy (Intermediate, Verified 12/26/17 19:20) MUSCLE WEAKNESS adhesive tape Allergy (Verified 12/26/17 19:20) RASH divalproex sodium [From Depakote] Allergy (Verified 12/26/17 19:20) UNSURE Review of Systems Constitutional: ABSENT: chills, fever(s), headache(s), weight gain, weight loss Eyes: ABSENT: visual disturbances Ears: ABSENT: hearing changes Cardiovascular: ABSENT: chest pain, dyspnea on exertion, edema, orthropnea, palpitations Respiratory: ABSENT: cough, hemoptysis Gastrointestinal: ABSENT: abdominal pain, constipation, diarrhea, hematemesis, hematochezia, nausea, vomiting Genitourinary: ABSENT: dysuria, hematuria Neurological: PRESENT: as per HPI, weakness - Weakness of both lower extremities, bilateral foot drop, incontinent bowel bladder for years, other - Weakness of both lower extremities. ABSENT: abnormal gait, abnormal speech, confusion, dizziness, focal weakness, syncope Physical Exam Vital Signs: Temp Pulse Resp BP Pulse Ox 26 H 135/77 H 100 11/07/18 18:40 11/07/18 16:01 11/07/18 18:40 Intake & Output 11/06/18 11/07/18 11/08/18 06:59 06:59 06:59 Intake Total 150 Balance 150 General appearance: PRESENT: no acute distress, well-developed, well-nourished Head exam: PRESENT: atraumatic, normocephalic Respiratory exam: PRESENT: decreased breath sounds, rhonchi Cardiovascular exam: PRESENT: RRR. ABSENT: diastolic murmur, rubs, systolic murmur Neurological exam: PRESENT: alert, awake, oriented to person, oriented to place, oriented to time, oriented to situation, other - Both lower extremities are flaccid with foot drops Results Laboratory Results: 11/07/18 17:20 11/07/18 17:20 11/07/18 11/07/18 11/07/18 17:20 17:20 18:00 WBC 12.2 H RBC 3.64 L Hgb 11.7 L Hct 35.1 L MCV 97 MCH 32.3 MCHC 33.5 RDW 12.1 Plt Count 248 Seg Neutrophils % 78.8 H Lymphocytes % 9.9 L Monocytes % 9.6 Eosinophils % 1.3 Basophils % 0.4 Absolute Neutrophils 9.6 H Absolute Lymphocytes 1.2 Absolute Monocytes 1.2 Absolute Eosinophils 0.2 Absolute Basophils 0.0 VBG pH 7.34 VBG pCO2 67.6 H* VBG HCO3 35.5 H VBG Base Excess 7.4 Sodium 137.9 Potassium 4.2 Chloride 94 L Carbon Dioxide 35 H Anion Gap 9 BUN 14 Creatinine 0.56 Est GFR ( Amer) > 60 Est GFR (Non-Af Amer) > 60 Glucose 98 Calcium 9.7 Total Bilirubin 0.6 AST 24 Alkaline Phosphatase 117 Total Protein 6.9 Albumin 4.3 11/07/18 17:20 Troponin I < 0.012 NT-Pro-B Natriuret Pep 42 Impressions: Chest X-Ray 11/07/18 15:02 IMPRESSION: Emphysema. There is a subtle heterogeneous opacity of the left lung base suggestive of infection or aspiration. Consider follow-up PA and lateral radiographs in 1 to 2 days to observe for interval development if indicated by clinical concern. Assessment and Plan - Diagnosis (1) Pneumonia Is this a current diagnosis for this admission?: Yes Plan: Patient will be put on IV antibiotics, cefepime and Levaquin. She is allergic to Biaxin and other macrolides (2) Acute respiratory failure Qualifiers: Is this a current diagnosis for this admission?: Yes Plan: Patient will be placed on pulmonary visors, BiPAP (3) Anemia Is this a current diagnosis for this admission?: Yes Plan: Anemia is from chronic disease long-standing - Time Time Spent with patient: 35 or more minutes
[2018-11-07 19:18] LABS: ARTERIAL BLOOD BASE EXCESS 3.3 mmol/L; ARTERIAL BLOOD H2CO3 1.55 mmol/L (1.05-1.35); ARTERIAL BLOOD HCO3 29.4 mmol/L (20-24); ARTERIAL BLOOD O2 SATURATION 96.4 % (94-98); ARTERIAL BLOOD PCO2 51.6 mmHg (35-45); ARTERIAL BLOOD PH 7.37 (7.35-7.45); ARTERIAL BLOOD PO2 88.2 mmHg (80-100)
[2018-11-07 19:19] LABS: ARTERIAL BLOOD FIO2 30%
[2018-11-07] MEDS ORDERED: DICYCLOMINE HCL 10 MG CAPSULE PO PRN (19:21)
[2018-11-07] MEDS: 1/2 NORMAL SALINE 1,000 ML IV PRN (20:31)
[2018-11-07] MEDS ORDERED: CEFEPIME 2 GM/D5W RTU 2 GM/50 ML RTUPB IV SCH (22:00)
[2018-11-07] MEDS ORDERED: QUETIAPINE FUMARATE 25 MG TABLET PO SCH (22:00)
[2018-11-07] MEDS ORDERED: QUETIAPINE FUMARATE 100 MG TABLET PO SCH (22:00)
[2018-11-07] MEDS: ATORVASTATIN CALCIUM 40 MG TABLET PO SCH (22:39)
[2018-11-07] MEDS: MONTELUKAST SODIUM 10 MG TABLET PO SCH (22:40)
[2018-11-07] MEDS: GUAIFENESIN 600 MG TABLET.SA PO SCH (22:40)
[2018-11-07] MEDS: GABAPENTIN 100 MG CAPSULE PO SCH (22:40)
[2018-11-07] MEDS: TRAMADOL HCL 50 MG TABLET PO PRN (22:40)
[2018-11-07] MEDS ORDERED: QUETIAPINE FUMARATE 100 MG TABLET PO ONE ×2 (23:30)
[2018-11-07] MEDS ORDERED: ZOLPIDEM TARTRATE 5 MG TABLET PO ONE (23:30)
[2018-11-07] MEDS: ONDANSETRON 4 MG TAB.RAPDIS PO PRN (23:54)
[2018-11-07] MEDS: LORAZEPAM 0.5 MG TABLET PO PRN (23:54)
[2018-11-07] MEDS: ENOXAPARIN SODIUM INJ 40 MG/0.4 ML DISP.SYRIN SUBCUT SCH (23:55)
[2018-11-07] MEDS: LEVOFLOXACIN 500 MG/D5W RTU 500 MG/100 ML RTUPB IV SCH (23:56)
[2018-11-08] MEDS ORDERED: CEFEPIME 1 GM/D5W RTU 1 GM/50 ML RTUPB IV ONE (00:30)
[2018-11-08] MEDS: FLUTICASONE NASAL SPRAY 50 MCG/SPRY 120 SPRAY/16 GM NASL SCH ×3 (01:44→22:13)
[2018-11-08] MEDS: MELATONIN 5 MG TABLET PO SCH ×2 (01:44→22:11)
[2018-11-08 04:37] LABS: HEMATOCRIT 32.7 % (36.0-47.0); HEMOGLOBIN 10.9 g/dL (12.0-15.5); MEAN CORPUSCULAR HEMOGLOBIN 31.8 pg (27.0-33.4); MEAN CORPUSCULAR HGB CONC 33.3 g/dL (32.0-36.0); MEAN CORPUSCULAR VOLUME 96 fl (80-97); PLATELET COUNT 218 10^3/uL (150-450); RED BLOOD COUNT 3.43 10^6/uL (3.72-5.28); RED CELL DISTRIBUTION WIDTH 12.2 % (11.5-14.0); WHITE BLOOD COUNT 11.2 10^3/uL (4.0-10.5)
[2018-11-08 04:55] LABS: ANION GAP 9 (5-19); BLOOD UREA NITROGEN 18 mg/dL (7-20); CALCIUM 8.9 mg/dL (8.4-10.2); CARBON DIOXIDE 31 mmol/L (22-30); CHLORIDE 96 mmol/L (98-107); GLUCOSE 132 mg/dL (75-110); POTASSIUM 4.6 mmol/L (3.6-5.0)
[2018-11-08 05:00] LABS: ABSOLUTE LYMPHOCYTES# (MANUAL) 0.2 10^3/uL (0.5-4.7); BAND NEUTROPHILS % (MANUAL) 8 % (3-5); BASOPHILS % (MANUAL) 0 % (0-2); EOSINOPHILS % (MANUAL) 0 % (0-6); LYMPHOCYTES % (MANUAL) 2 % (13-45); MONOCYTES % (MANUAL) 0 % (3-13); SEGMENTED NEUTROPHILS % (MAN) 90 % (42-78); TOTAL CELLS COUNTED 100
[2018-11-08 05:01] LABS: PLATELET COMMENT ADEQUATE; RBC MORPHOLOGY COMMENT NORMO-CYTIC/CHROMIC
[2018-11-08] MEDS: GABAPENTIN 100 MG CAPSULE PO SCH ×3 (06:09→22:08)
[2018-11-08] MEDS: LEVOTHYROXINE SODIUM 0.025 MG TABLET PO SCH (06:09)
[2018-11-08] MEDS: ACETAMINOPHEN 325 MG TABLET PO PRN ×2 (08:37→15:07)
[2018-11-08] MEDS: LORAZEPAM 0.5 MG TABLET PO PRN ×2 (08:38→15:07)
--- NOTE | 2018-11-08 09:38 | PDOC H&P ---
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 She states that she is incontinent of bowel and bladder she has bilateral foot drops, the patient states she is never had an MRI scan of her back. She does complain of scoliosis in her back. Patient may complaint come to the emergency room is COPD exacerbation which is been going on for about a week and got really bad in the last day. Patient denies fever or chills. Past Medical History Cardiac Medical History: Reports: Hypertension Denies: Coronary Artery Disease, Myocardial Infarction Pulmonary Medical History: Reports: Asthma, Bronchitis, Chronic Obstructive Pulmonary Disease (COPD), Pneumonia Denies: Tuberculosis Neurological Medical History: Reports: Seizures Endocrine Medical History: Reports: Diabetes Mellitus Type 2 GI Medical History: Reports: Gastroesophageal Reflux Disease, Hiatal Hernia Denies: Hepatitis Musculoskeltal Medical History: Reports: Arthritis Psychiatric Medical History: Reports: Depression, Schizoaffective Disorder Hematology: Denies: Anemia, Sickle Cell Disease Past Surgical History Past Surgical History: Reports: Appendectomy, Section, Cholecystectomy, Hysterectomy, Other - Nate fundoplication, ventral herniorraphy 15 yrs ago Denies: Amputation, Mastectomy, Pacemaker Social History Smoking Status: Former Smoker Frequency of Alcohol Use: None Hx Recreational Drug Use: No Drugs: None Hx Prescription Drug Abuse: No - Advance Directive Resuscitation Status: Full Code Family History Family History: CAD, COPD, Hypertension, Malignancy Parental Family History Reviewed: No Children Family History Reviewed: No Sibling(s) Family History Reviewed.: No Medication/Allergy Home Medications: Acetaminophen [Tylenol 325 mg Tablet] 650 mg PO QHS 11/07/18 Albuterol Sulfate [Ventolin Hfa 8 gm Mdi (1 Mdi/ER Disp)] 2 puff IH QIDP PRN 11/07/18 Amlodipine Besylate [Norvasc 2.5 mg Tablet] 2.5 mg PO DAILY 11/07/18 Atorvastatin Calcium [Lipitor 40 mg Tablet] 40 mg PO DAILY 11/07/18 Benzonatate [Tessalon Perles 100 mg Capsule] 100 mg PO Q8HP PRN 11/07/18 Bethanechol Chloride 10 mg PO QAM 11/07/18 Dicyclomine HCl [Bentyl 10 mg Capsule] 1 cap PO Q8 11/07/18 Docusate Sodium [Colace] 100 mg PO DAILY 11/07/18 Fesoterodine Fumarate [Toviaz] 4 mg PO DAILY 11/07/18 Fluticasone Propionate [Flonase Nasal [place] 50 Mcg/[place] 16 gm] 1 spray NASL DAILY 11/07/18 Fluticasone/Salmeterol [Advair 500-50 Diskus 14 Dose/Diskus] 1 inh IH Q12H 11/07/18 Gabapentin [Neurontin 100 mg Capsule] 100 mg PO TID 11/07/18 Ipratropium/Albuterol Sulfate [Duoneb 3 ml Ampul] 3 ml NEB RTTID 11/07/18 Levothyroxine Sodium [Synthroid 0.025 mg Tablet] 25 mcg PO Q6AM 11/07/18 Lorazepam [Ativan 0.5 mg Tablet] 0.5 mg PO Q6HP PRN 11/07/18 Melatonin 5 mg PO QHS 11/07/18 Montelukast Sodium [Singulair 10 mg Tablet] 10 mg PO DAILY 11/07/18 Multivitamin/Iron/Folic Acid [Centrum Complete Multivit Tab] 1 each PO DAILY 12/18 Omeprazole 40 mg PO DAILY 11/07/18 Ondansetron HCl [Zofran 4 mg Tablet] 1 tab PO Q6HP PRN 11/07/18 Quetiapine Fumarate [Seroquel 100 mg Tablet] 150 mg PO BID 11/07/18 Quetiapine Fumarate [Seroquel] 400 mg PO DAILY 11/07/18 Roflumilast [Daliresp 500 mcg Tablet] 500 mcg PO DAILY 11/07/18 Simethicone [Gas Relief 80] 80 mg PO Q8 11/07/18 Tiotropium [place] [Spiriva Respimat] 4 gm IH DAILY 11/07/18 Tramadol HCl [Ultram] 50 mg PO BIDP PRN 11/07/18 Zolpidem Tartrate [Ambien 5 mg Tablet] 5 mg PO QHS 11/07/18 Allergies/Adverse Reactions: clarithromycin [From Biaxin] Allergy (Severe, Verified 12/26/17 19:20) TONGUE/THROAT SWELLING furosemide [From Lasix] Allergy (Intermediate, Verified 12/26/17 19:20) UNSURE venlafaxine HCl [From Effexor] Allergy (Intermediate, Verified 12/26/17 19:20) MUSCLE WEAKNESS adhesive tape Allergy (Verified 12/26/17 19:20) RASH divalproex sodium [From Depakote] Allergy (Verified 12/26/17 19:20) UNSURE Physical Exam Vital Signs: Temp Pulse Resp BP Pulse Ox 98.2 F 79 21 H 106/72 100 11/08/18 07:52 11/08/18 07:52 11/08/18 07:52 11/08/18 07:52 11/08/18 07:52 Pulse Oximeter Continuous Start: 11/07/18 18:42 Freq: RTQ4 Status: Active Protocol: Document 11/08/18 03:58 CMI (Rec: 11/08/18 04:15 CMI [id number]) Pulse Oximetry Assessment Oxygen Saturation (92-100) 98 Oxygen Delivery Method Bi-pap Fraction of Inspired Oxygen (FIO2) 30 Equipment Usage Equipment in Use Continuous Pulse Oximeter 24 Hour Charge Charge Now Continuous SpO2 Machine # 11 Intake & Output 11/07/18 11/08/18 11/09/18 06:59 06:59 06:59 Intake Total 540 Output Total 0 Balance 540 Weight 67 kg Results Laboratory Results: 11/08/18 03:11 11/08/18 03:11 11/07/18 11/07/18 11/07/18 17:20 17:20 18:00 WBC 12.2 H RBC 3.64 L Hgb 11.7 L Hct 35.1 L MCV 97 MCH 32.3 MCHC 33.5 RDW 12.1 Plt Count 248 Seg Neutrophils % 78.8 H Lymphocytes % 9.9 L Monocytes % 9.6 Eosinophils % 1.3 Basophils % 0.4 Absolute Neutrophils 9.6 H Absolute Lymphocytes 1.2 Absolute Monocytes 1.2 Absolute Eosinophils 0.2 Absolute Basophils 0.0 Carbonic Acid HCO3/H2CO3 Ratio ABG pH ABG pCO2 ABG pO2 ABG HCO3 ABG O2 Saturation ABG Base Excess VBG pH 7.34 VBG pCO2 67.6 H* VBG HCO3 35.5 H VBG Base Excess 7.4 FiO2 Sodium 137.9 Potassium 4.2 Chloride 94 L Carbon Dioxide 35 H Anion Gap 9 BUN 14 Creatinine 0.56 Est GFR ( Amer) > 60 Est GFR (Non-Af Amer) > 60 Glucose 98 Calcium 9.7 Total Bilirubin 0.6 AST 24 Alkaline Phosphatase 117 Total Protein 6.9 Albumin 4.3 11/07/18 11/08/18 11/08/18 18:40 03:11 03:11 WBC 11.2 H RBC 3.43 L Hgb 10.9 L Hct 32.7 L MCV 96 MCH 31.8 MCHC 33.3 RDW 12.2 Plt Count 218 Seg Neutrophils % Not Reportable Lymphocytes % Not Reportable Monocytes % Not Reportable Eosinophils % Not Reportable Basophils % Not Reportable Absolute Neutrophils Not Reportable Absolute Lymphocytes Not Reportable Absolute Monocytes Not Reportable Absolute Eosinophils Not Reportable Absolute Basophils Not Reportable Carbonic Acid 1.55 H HCO3/H2CO3 Ratio 18:1 ABG pH 7.37 ABG pCO2 51.6 H ABG pO2 88.2 ABG HCO3 29.4 H ABG O2 Saturation 96.4 ABG Base Excess 3.3 VBG pH VBG pCO2 VBG HCO3 VBG Base Excess FiO2 30% Sodium 135.7 L Potassium 4.6 Chloride 96 L Carbon Dioxide 31 H Anion Gap 9 BUN 18 Creatinine 0.59 Est GFR ( Amer) > 60 Est GFR (Non-Af Amer) > 60 Glucose 132 H Calcium 8.9 Total Bilirubin AST Alkaline Phosphatase Total Protein Albumin 11/07/18 17:20 Troponin I < 0.012 NT-Pro-B Natriuret Pep 42 Impressions: Chest X-Ray 11/07/18 15:02 IMPRESSION: Emphysema. There is a subtle heterogeneous opacity of the left lung base suggestive of infection or aspiration. Consider follow-up PA and lateral radiographs in 1 to 2 days to observe for interval development if indicated by clinical concern. Assessment and Plan - Diagnosis (1) Pneumonia Qualifiers: Pneumonia type: due to unspecified organism Laterality: left Lung location: lower lobe of lung Qualified Code(s): J18.1 - Lobar pneumonia, unspecified organism Is this a current diagnosis for this admission?: Yes (2) Acute respiratory failure Qualifiers: Is this a current diagnosis for this admission?: Yes (3) Anemia Is this a current diagnosis for this admission?: Yes
[2018-11-08] MEDS ORDERED: FLUOXETINE HCL 20 MG CAPSULE PO SCH (10:00)
[2018-11-08] MEDS ORDERED: CEFEPIME 2 GM/D5W RTU 2 GM/50 ML RTUPB IV SCH (10:00)
[2018-11-08] MEDS: GUAIFENESIN 600 MG TABLET.SA PO SCH ×2 (11:09→22:10)
[2018-11-08] MEDS: AMLODIPINE BESYLATE 2.5 MG TABLET PO SCH (11:09)
[2018-11-08] MEDS: TRAMADOL HCL 50 MG TABLET PO PRN ×2 (11:10→22:09)
[2018-11-08] MEDS: ENOXAPARIN SODIUM INJ 40 MG/0.4 ML DISP.SYRIN SUBCUT SCH (11:10)
[2018-11-08] MEDS: FLUTICASONE/VILANTEROL 200-25 MCG/DOSE IH SCH (11:16)
[2018-11-08] MEDS: CEFEPIME HCL 2 GM in DEXTROSE 5%-WATER 50 ML IV SCH ×2 (11:20→22:13)
[2018-11-08] MEDS: ROFLUMILAST 500 MCG TABLET PO SCH (11:20)
[2018-11-08] MEDS: TIOTROPIUM BROMIDE DPI 5 CAP/KIT (18 MCG/CAP) IH SCH (12:14)
[2018-11-08] MEDS: IPRATROPIUM/ALBUTEROL 0.5-2.5 MG/3 ML AMPUL NEB PRN ×2 (15:34→19:40)
[2018-11-08] MEDS: 1/2 NORMAL SALINE 1,000 ML IV PRN (17:03)
[2018-11-08] MEDS: LEVOFLOXACIN 500 MG/D5W RTU 500 MG/100 ML RTUPB IV SCH (17:03)
[2018-11-08] MEDS ORDERED: QUETIAPINE FUMARATE 100 MG TABLET PO SCH (22:00)
[2018-11-08] MEDS: QUETIAPINE FUMARATE 100 MG TABLET PO SCH (22:09)
[2018-11-08] MEDS: ZOLPIDEM TARTRATE 5 MG TABLET PO SCH (22:09)
[2018-11-08] MEDS: MONTELUKAST SODIUM 10 MG TABLET PO SCH (22:09)
[2018-11-08] MEDS: ATORVASTATIN CALCIUM 40 MG TABLET PO SCH (22:09)
[2018-11-08] MEDS: SIMETHICONE 80 MG TAB.CHEW PO SCH (22:09)
[2018-11-08] MEDS: DICYCLOMINE HCL 10 MG CAPSULE PO SCH (22:09)
[2018-11-09] MEDS: SIMETHICONE 80 MG TAB.CHEW PO SCH ×3 (05:50→22:28)
[2018-11-09] MEDS: PANTOPRAZOLE SODIUM 40 MG TABLET.DR PO SCH (05:50)
[2018-11-09] MEDS: DICYCLOMINE HCL 10 MG CAPSULE PO SCH ×3 (05:50→22:28)
[2018-11-09] MEDS: GABAPENTIN 100 MG CAPSULE PO SCH ×3 (05:51→22:28)
[2018-11-09] MEDS: LORAZEPAM 0.5 MG TABLET PO PRN ×2 (05:51→13:57)
[2018-11-09] MEDS: ACETAMINOPHEN 325 MG TABLET PO PRN ×2 (05:51→13:50)
[2018-11-09] MEDS: QUETIAPINE FUMARATE 100 MG TABLET PO SCH ×3 (05:53→22:28)
[2018-11-09] MEDS: LEVOTHYROXINE SODIUM 0.025 MG TABLET PO SCH (05:55)
[2018-11-09 06:34] LABS: ABSOLUTE EOSINOPHILS # (AUTO) 0.2 10^3/uL (0.0-0.6); ABSOLUTE LYMPHOCYTES (AUTO) 1.3 10^3/uL (0.5-4.7); ABSOLUTE NEUT (AUTO) 5.6 10^3/uL (1.7-8.2); BASOPHILS % (AUTO) 0.3 % (0-2); EOSINOPHILS % (AUTO) 2.6 % (0-6); HEMATOCRIT 35.2 % (36.0-47.0); HEMOGLOBIN 11.6 g/dL (12.0-15.5); LYMPHOCYTES % (AUTO) 16.5 % (13-45); MEAN CORPUSCULAR HEMOGLOBIN 32.1 pg (27.0-33.4); MEAN CORPUSCULAR HGB CONC 32.9 g/dL (32.0-36.0); MEAN CORPUSCULAR VOLUME 97 fl (80-97); MONOCYTES % (AUTO) 12.1 % (3-13); PLATELET COUNT 230 10^3/uL (150-450); RED BLOOD COUNT 3.61 10^6/uL (3.72-5.28); RED CELL DISTRIBUTION WIDTH 12.3 % (11.5-14.0); SEGMENTED NEUTROPHILS % (AUTO) 68.5 % (42-78); TOTAL CELLS COUNTED % (AUTO) 100 %; WHITE BLOOD COUNT 8.1 10^3/uL (4.0-10.5)
[2018-11-09 07:02] LABS: ANION GAP 5 (5-19); BLOOD UREA NITROGEN 17 mg/dL (7-20); CARBON DIOXIDE 33 mmol/L (22-30); CHLORIDE 101 mmol/L (98-107); GLUCOSE 85 mg/dL (75-110); POTASSIUM 3.9 mmol/L (3.6-5.0)
[2018-11-09] MEDS ORDERED: BETHANECHOL PO SCH (08:00)
[2018-11-09] MEDS: IPRATROPIUM/ALBUTEROL 0.5-2.5 MG/3 ML AMPUL NEB PRN ×3 (08:06→19:44)
--- NOTE | 2018-11-09 08:56 | PDOC PROGRESS REPORT ---
Subjective Progress Note for:: 11/09/18 Reason For Visit: PNEUMONIA, COPD EXACERBATION, HYPERTENSION Patient was admitted on 11/07/2018 and the skilled nursing for COPD exacerbation. Patient is on day 3 of cefepime IV sputum culture is pending from yesterday. This morning patient was sitting up in bed with out her BiPAP machine on and appeared to be comfortable. Patient admits to feeling better. Labs this morning white count is come down to 8.1 from 12.2 H&H is stable 11.6 35.2 BUN of 17 creatinine 0.63 calcium 9.0 on admission the BNP was normal at 42. On admission chest x-ray showed eczema with possible infection or aspiration in the left lower lobe. Will repeat chest x-ray today. Vital signs this morning patient remains afebrile 97.4 she has been afebrile for the last 48 hours, blood pressures are stable 106/57 actually improved from admission, saturations are in the upper 90s from 98-100 admission Physical Exam Vital Signs: Temp Pulse Resp BP Pulse Ox 97.4 F 82 15 106/57 L 98 11/09/18 03:57 11/09/18 03:57 11/09/18 03:57 11/09/18 03:57 11/09/18 03:57 Pulse Oximeter Continuous Start: 11/07/18 18:42 Freq: RTQ4 Status: Active Protocol: Document 11/09/18 03:49 CMI (Rec: 11/09/18 04:07 CMI [id number]) Pulse Oximetry Assessment Oxygen Saturation (92-100) 99 Oxygen Delivery Method Bi-pap Fraction of Inspired Oxygen (FIO2) 30 Equipment Usage Equipment in Use Continuous SpO2 Machine # 11 Intake & Output 11/08/18 11/09/18 11/10/18 06:59 06:59 06:59 Intake Total 540 2375 Output Total 0 Balance 540 2375 Weight 67 kg 71.1 kg General appearance: PRESENT: no acute distress, well-developed, well-nourished, other - Resting comfortably Head exam: PRESENT: atraumatic, normocephalic Respiratory exam: PRESENT: clear to auscultation wilfredo. ABSENT: rales, rhonchi, wheezes Cardiovascular exam: PRESENT: RRR. ABSENT: diastolic murmur, rubs, systolic murmur Neurological exam: PRESENT: alert, awake, oriented to person, oriented to place, oriented to time, oriented to situation, CN II-XII grossly intact. ABSENT: motor sensory deficit Psychiatric exam: PRESENT: appropriate affect, normal mood. ABSENT: homicidal ideation, suicidal ideation Results Laboratory Results: 11/09/18 05:43 11/09/18 05:43 11/09/18 11/09/18 05:43 05:43 WBC 8.1 RBC 3.61 L Hgb 11.6 L Hct 35.2 L MCV 97 MCH 32.1 MCHC 32.9 RDW 12.3 Plt Count 230 Seg Neutrophils % 68.5 Lymphocytes % 16.5 Monocytes % 12.1 Eosinophils % 2.6 Basophils % 0.3 Absolute Neutrophils 5.6 Absolute Lymphocytes 1.3 Absolute Monocytes 1.0 Absolute Eosinophils 0.2 Absolute Basophils 0.0 Sodium 138.7 Potassium 3.9 Chloride 101 Carbon Dioxide 33 H Anion Gap 5 BUN 17 Creatinine 0.63 Est GFR ( Amer) > 60 Est GFR (Non-Af Amer) > 60 Glucose 85 Calcium 9.0 11/07/18 17:20 Troponin I < 0.012 NT-Pro-B Natriuret Pep 42 Impressions: Chest X-Ray 11/07/18 15:02 IMPRESSION: Emphysema. There is a subtle heterogeneous opacity of the left lung base suggestive of infection or aspiration. Consider follow-up PA and lateral radiographs in 1 to 2 days to observe for interval development if indicated by clinical concern. Assessment and Plan - Diagnosis (1) Pneumonia Qualifiers: Pneumonia type: due to unspecified organism Laterality: left Lung location: lower lobe of lung Qualified Code(s): J18.1 - Lobar pneumonia, unspecified organism Is this a current diagnosis for this admission?: Yes Plan: Patient will be put on IV antibiotics, cefepime and Levaquin. She is allergic to Biaxin and other macrolides Eight 9-day 2 of IV antibiotics. White count is basically stable 11.2 down slightly from yesterday H&H 10.9 32.7 she is afebrile. Patient is on BiPAP. Eight 9-day 3 of cefepime and Levaquin, white count is improving, patient remains afebrile. Patient was off her BiPAP this morning. Will repeat chest x- ray (2) Acute respiratory failure Qualifiers: Is this a current diagnosis for this admission?: Yes Plan: Patient will be placed on pulmonary visors, BiPAP 11/08/2018 sat is 96% on BiPAP, BNP is only 42 patient is comfortable on BiPAP and she says she is used it many times in the past patient does have what appears to be a new onset pneumonia 11/09/2018 his oxygen saturations remain in the upper 90s patient says she is breathing easier today. Day 3 of antibiotics (3) Anemia Is this a current diagnosis for this admission?: Yes Plan: Anemia is from chronic disease long-standing 11/08/2018 H&H is stable from admission no change follow this as indicated 11/09/2018 anemia stable. 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 Patient thinks that this is from scoliosis 11/09/2018 stable no changes, no complaints - Time Time Spent with patient: 25-34 minutes
[2018-11-09] MEDS ORDERED: FLUOXETINE HCL 20 MG/5 ML UDCUP PO SCH (10:00)
[2018-11-09] MEDS: AMLODIPINE BESYLATE 2.5 MG TABLET PO SCH (11:00)
[2018-11-09] MEDS: GUAIFENESIN 600 MG TABLET.SA PO SCH ×2 (11:00→22:29)
[2018-11-09] MEDS: TIOTROPIUM BROMIDE DPI 5 CAP/KIT (18 MCG/CAP) IH SCH (11:00)
[2018-11-09] MEDS: FLUTICASONE/VILANTEROL 200-25 MCG/DOSE IH SCH (11:00)
[2018-11-09] MEDS: ROFLUMILAST 500 MCG TABLET PO SCH (11:00)
[2018-11-09] MEDS: MULTIVITAMIN TABLET PO SCH (11:00)
[2018-11-09] MEDS: FLUTICASONE NASAL SPRAY 50 MCG/SPRY 120 SPRAY/16 GM NASL SCH ×2 (11:00→22:27)
[2018-11-09] MEDS: ENOXAPARIN SODIUM INJ 40 MG/0.4 ML DISP.SYRIN SUBCUT SCH (11:21)
[2018-11-09] MEDS: DOCUSATE SODIUM 100 MG CAPSULE PO SCH (11:21)
[2018-11-09] MEDS: CEFEPIME HCL 2 GM in DEXTROSE 5%-WATER 50 ML IV SCH ×2 (11:21→22:28)
[2018-11-09] MEDS: FLUOXETINE HCL 20 MG/5 ML UDCUP PO SCH (11:26)
[2018-11-09] MEDS: 1/2 NORMAL SALINE 1,000 ML IV PRN (11:37)
--- NOTE | 2018-11-09 12:16 | RADIOLOGY REPORT (SQ) ---
EXAM DESCRIPTION: CHEST SINGLE VIEW COMPLETED DATE/TIME: 11/09/2018 11:48 am REASON FOR STUDY: follow up COMPARISON: None. TECHNIQUE: Single frontal radiographic view of the chest acquired. NUMBER OF VIEWS: One view. LIMITATIONS: None. FINDINGS: LUNGS AND PLEURA: No pneumothorax. Similar basilar interstitial -nodular markings. No co nsolidation or pleural effusion. MEDIASTINUM AND HILAR STRUCTURES: Stable. HEART AND VASCULAR STRUCTURES: Stable. BONES: No acute findings. HARDWARE: None in the chest. OTHER: No other significant finding. IMPRESSION: Similar basilar interstitial -nodular markings. No consolidation or pleural effusion. TECHNICAL DOCUMENTATION: JOB ID: [id number] [id number] 2010 [employer]- All Rights Reserved Reading location - IP/workstation name: [email or web address]
[2018-11-09] MEDS: TRAMADOL HCL 50 MG TABLET PO PRN (15:13)
[2018-11-09] MEDS: LEVOFLOXACIN 500 MG/D5W RTU 500 MG/100 ML RTUPB IV SCH (18:33)
[2018-11-09] MEDS: BENZONATATE 100 MG CAPSULE PO PRN (18:37)
[2018-11-09] MEDS: ATORVASTATIN CALCIUM 40 MG TABLET PO SCH (22:28)
[2018-11-09] MEDS: MONTELUKAST SODIUM 10 MG TABLET PO SCH (22:28)
[2018-11-09] MEDS: ZOLPIDEM TARTRATE 5 MG TABLET PO SCH (22:28)
[2018-11-09] MEDS: MELATONIN 5 MG TABLET PO SCH (22:29)
[2018-11-10] MEDS: LORAZEPAM 0.5 MG TABLET PO PRN ×3 (01:09→18:52)
[2018-11-10] MEDS: ACETAMINOPHEN 325 MG TABLET PO PRN ×3 (01:10→15:28)
[2018-11-10 04:43] LABS: ABSOLUTE EOSINOPHILS # (AUTO) 0.3 10^3/uL (0.0-0.6); ABSOLUTE LYMPHOCYTES (AUTO) 1.6 10^3/uL (0.5-4.7); ABSOLUTE NEUT (AUTO) 4.2 10^3/uL (1.7-8.2); BASOPHILS % (AUTO) 0.6 % (0-2); EOSINOPHILS % (AUTO) 4.5 % (0-6); HEMATOCRIT 31.6 % (36.0-47.0); HEMOGLOBIN 10.6 g/dL (12.0-15.5); MEAN CORPUSCULAR HEMOGLOBIN 32.5 pg (27.0-33.4); MEAN CORPUSCULAR HGB CONC 33.4 g/dL (32.0-36.0); MEAN CORPUSCULAR VOLUME 97 fl (80-97); MONOCYTES % (AUTO) 13.6 % (3-13); PLATELET COUNT 214 10^3/uL (150-450); RED BLOOD COUNT 3.25 10^6/uL (3.72-5.28); RED CELL DISTRIBUTION WIDTH 12.1 % (11.5-14.0); SEGMENTED NEUTROPHILS % (AUTO) 59.3 % (42-78); TOTAL CELLS COUNTED % (AUTO) 100 %; WHITE BLOOD COUNT 7.1 10^3/uL (4.0-10.5)
[2018-11-10 05:08] LABS: ANION GAP 6 (5-19); BLOOD UREA NITROGEN 12 mg/dL (7-20); CALCIUM 8.8 mg/dL (8.4-10.2); CARBON DIOXIDE 31 mmol/L (22-30); CHLORIDE 102 mmol/L (98-107); GLUCOSE 91 mg/dL (75-110); POTASSIUM 3.5 mmol/L (3.6-5.0)
[2018-11-10] MEDS: 1/2 NORMAL SALINE 1,000 ML IV PRN ×2 (06:07→23:31)
[2018-11-10] MEDS: DICYCLOMINE HCL 10 MG CAPSULE PO SCH ×3 (06:08→22:13)
[2018-11-10] MEDS: LEVOTHYROXINE SODIUM 0.025 MG TABLET PO SCH (06:08)
[2018-11-10] MEDS: PANTOPRAZOLE SODIUM 40 MG TABLET.DR PO SCH (06:08)
[2018-11-10] MEDS: GABAPENTIN 100 MG CAPSULE PO SCH ×3 (06:08→22:13)
[2018-11-10] MEDS: QUETIAPINE FUMARATE 100 MG TABLET PO SCH ×3 (06:08→22:13)
[2018-11-10] MEDS: SIMETHICONE 80 MG TAB.CHEW PO SCH ×3 (06:08→22:13)
[2018-11-10] MEDS: IPRATROPIUM/ALBUTEROL 0.5-2.5 MG/3 ML AMPUL NEB PRN (07:50)
[2018-11-10] MEDS: TRAMADOL HCL 50 MG TABLET PO PRN ×2 (08:51→22:11)
[2018-11-10] MEDS: BENZONATATE 100 MG CAPSULE PO PRN (08:52)
--- NOTE | 2018-11-10 09:02 | PDOC PROGRESS REPORT ---
Subjective Progress Note for:: 11/10/18 Subjective:: 11/10/2018 patient was admitted to the hospital on 11/07/2018 with a COPD exacerbation and possible pneumonia. Admission chest x-ray showed emphysema with possible aspiration pneumonia left lower lobe. Patient was placed on BiPAP well as prophylactic antibiotics, Levaquin, and cefepime, patient is allergic to some antibiotics. Patient came from group home She is other medical problems include anemia from chronic disease, hypertension, and patient has paresis from the waist down for the last 4 years of unknown etiology. Reason For Visit: PNEUMONIA, COPD EXACERBATION, HYPERTENSION Physical Exam Vital Signs: Temp Pulse Resp BP Pulse Ox 97.9 F 84 16 91/44 L 100 11/10/18 03:33 11/10/18 07:52 11/10/18 07:52 11/10/18 03:33 11/10/18 07:52 Pulse Oximeter Continuous Start: 11/07/18 18:42 Freq: RTQ4 Status: Active Protocol: Document 11/10/18 07:52 JDR (Rec: 11/10/18 08:12 JDR [id number]) Pulse Oximetry Assessment Oxygen Saturation (92-100) 100 Oxygen Flow Rate (L/min) 3 Oxygen Delivery Method Nasal Cannula Equipment Usage Equipment in Use Continuous SpO2 Machine # 11 Intake & Output 11/09/18 11/10/18 11/11/18 06:59 06:59 06:59 Intake Total 2375 2980 Balance 2375 2980 Weight 71.1 kg 67 kg General appearance: PRESENT: no acute distress, well-developed, well-nourished, other - She is sitting up in bed carries on normal conversation.. Patient's sister is in the room discussed her medical case. Respiratory exam: PRESENT: decreased breath sounds Cardiovascular exam: PRESENT: RRR. ABSENT: diastolic murmur, rubs, systolic murmur Neurological exam: PRESENT: alert, awake, oriented to person, oriented to place, oriented to time, oriented to situation, CN II-XII grossly intact. ABSENT: motor sensory deficit Psychiatric exam: PRESENT: appropriate affect, normal mood. ABSENT: homicidal ideation, suicidal ideation Results Laboratory Results: 11/10/18 03:54 11/10/18 03:54 11/10/18 11/10/18 03:54 03:54 WBC 7.1 RBC 3.25 L Hgb 10.6 L Hct 31.6 L MCV 97 MCH 32.5 MCHC 33.4 RDW 12.1 Plt Count 214 Seg Neutrophils % 59.3 Lymphocytes % 22.0 Monocytes % 13.6 H Eosinophils % 4.5 Basophils % 0.6 Absolute Neutrophils 4.2 Absolute Lymphocytes 1.6 Absolute Monocytes 1.0 Absolute Eosinophils 0.3 Absolute Basophils 0.0 Sodium 139.2 Potassium 3.5 L Chloride 102 Carbon Dioxide 31 H Anion Gap 6 BUN 12 Creatinine 0.53 Est GFR ( Amer) > 60 Est GFR (Non-Af Amer) > 60 Glucose 91 Calcium 8.8 11/07/18 17:20 Troponin I < 0.012 NT-Pro-B Natriuret Pep 42 Impressions: Chest X-Ray 11/09/18 00:00 IMPRESSION: Similar basilar interstitial -nodular markings. No consolidation or pleural effusion. Assessment and Plan - Diagnosis (1) Pneumonia Qualifiers: Pneumonia type: due to unspecified organism Laterality: left Lung l ocation: lower lobe of lung Qualified Code(s): J18.1 - Lobar pneumonia, unspecified organism Is this a current diagnosis for this admission?: Yes Plan: Patient will be put on IV antibiotics, cefepime and Levaquin. She is allergic to Biaxin and other macrolides Eight 1019-day 2 of IV antibiotics. White count is basically stable 11.2 down slightly from yesterday H&H 10.9 32.7 she is afebrile. Patient is on BiPAP. Eight 1119-day 3 of cefepime and Levaquin, white count is improving, patient remains afebrile. Patient was off her BiPAP this morning. Will repeat chest x- ray Eight 1219-day 4 of cefepime and Levaquin. Chest x-ray from yesterday showed interstitial markings no pleural effusion, no consolidation. She may be dealing with a bronchitis as opposed to pneumonia (2) Acute respiratory failure Qualifiers: Is this a current diagnosis for this admission?: Yes Plan: Patient will be placed on pulmonary visors, BiPAP 11/08/2018 sat is 96% on BiPAP, BNP is only 42 patient is comfortable on BiPAP and she says she is used it many times in the past patient does have what appears to be a new onset pneumonia 11/09/2018 his oxygen saturations remain in the upper 90s patient says she is breathing easier today. Day 3 of antibiotics 11/10/2018 patient continues to use BiPAP as needed alternating with nasal cannula, setting of 2 to 3 L, sats remained good (3) Anemia Is this a current diagnosis for this admission?: Yes Plan: Anemia is from chronic disease long-standing 11/08/2018 H&H is stable from admission no change follow this as indicated 11/09/2018 anemia stable. 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 Patient thinks that this is from scoliosis 11/09/2018 stable no changes, no complaints 11/10/2018 no changes in neurologic status patient remains awake alert and oriented - Time Time Spent with patient: 25-34 minutes
[2018-11-10] MEDS: ENOXAPARIN SODIUM INJ 40 MG/0.4 ML DISP.SYRIN SUBCUT SCH (09:07)
[2018-11-10] MEDS: DOCUSATE SODIUM 100 MG CAPSULE PO SCH (09:08)
[2018-11-10] MEDS: AMLODIPINE BESYLATE 2.5 MG TABLET PO SCH (09:08)
[2018-11-10] MEDS: MULTIVITAMIN TABLET PO SCH (09:08)
[2018-11-10] MEDS: GUAIFENESIN 600 MG TABLET.SA PO SCH ×2 (09:08→22:14)
[2018-11-10] MEDS: CEFEPIME HCL 2 GM in DEXTROSE 5%-WATER 50 ML IV SCH ×2 (09:09→22:14)
[2018-11-10] MEDS: FLUTICASONE/VILANTEROL 200-25 MCG/DOSE IH SCH (09:14)
[2018-11-10] MEDS: FLUTICASONE NASAL SPRAY 50 MCG/SPRY 120 SPRAY/16 GM NASL SCH ×2 (09:14→22:13)
[2018-11-10] MEDS: TIOTROPIUM BROMIDE DPI 5 CAP/KIT (18 MCG/CAP) IH SCH (09:14)
[2018-11-10] MEDS: FLUOXETINE HCL 20 MG/5 ML UDCUP PO SCH (09:15)
[2018-11-10] MEDS: ROFLUMILAST 500 MCG TABLET PO SCH (09:21)
[2018-11-10] MEDS: ZOLPIDEM TARTRATE 5 MG TABLET PO SCH (22:13)
[2018-11-10] MEDS: MONTELUKAST SODIUM 10 MG TABLET PO SCH (22:13)
[2018-11-10] MEDS: LEVOFLOXACIN 500 MG TABLET PO SCH (22:13)
[2018-11-10] MEDS: MELATONIN 5 MG TABLET PO SCH (22:13)
[2018-11-10] MEDS: ATORVASTATIN CALCIUM 40 MG TABLET PO SCH (22:13)
[2018-11-10 23:41] LABS: APPEARANCE,URINE SLIGHTLY-CLOUDY; BILIRUBIN,URINE NEGATIVE (NEGATIVE); COLOR,URINE YELLOW; GLUCOSE, URINE NEGATIVE (NEGATIVE); KETONES,URINE NEGATIVE (NEGATIVE); LEUKOCYTE ESTERASE,URINE LARGE (NEGATIVE); NITRITE,URINE NEGATIVE (NEGATIVE); PROTEIN,URINE NEGATIVE (NEGATIVE); URINE SPECIFIC GRAVITY 1.009; UROBILINOGEN,URINE NEGATIVE mg/dL (<2.0)
[2018-11-11] MEDS: ACETAMINOPHEN 325 MG TABLET PO PRN ×2 (01:08→16:16)
[2018-11-11] MEDS: LORAZEPAM 0.5 MG TABLET PO PRN ×3 (01:08→16:16)
[2018-11-11] MEDS: GABAPENTIN 100 MG CAPSULE PO SCH ×3 (06:47→22:24)
[2018-11-11] MEDS: LEVOTHYROXINE SODIUM 0.025 MG TABLET PO SCH (06:47)
[2018-11-11] MEDS: PANTOPRAZOLE SODIUM 40 MG TABLET.DR PO SCH (06:47)
[2018-11-11] MEDS: DICYCLOMINE HCL 10 MG CAPSULE PO SCH ×3 (06:47→22:24)
[2018-11-11] MEDS: QUETIAPINE FUMARATE 100 MG TABLET PO SCH ×3 (06:47→22:24)
[2018-11-11] MEDS: SIMETHICONE 80 MG TAB.CHEW PO SCH ×3 (06:47→22:24)
[2018-11-11] MEDS: AMLODIPINE BESYLATE 2.5 MG TABLET PO SCH (09:45)
[2018-11-11] MEDS: GUAIFENESIN 600 MG TABLET.SA PO SCH ×2 (09:45→22:25)
[2018-11-11] MEDS: MULTIVITAMIN TABLET PO SCH (09:46)
[2018-11-11] MEDS: FLUOXETINE HCL 20 MG/5 ML UDCUP PO SCH (09:46)
[2018-11-11] MEDS: DOCUSATE SODIUM 100 MG CAPSULE PO SCH (09:46)
[2018-11-11] MEDS: FLUTICASONE NASAL SPRAY 50 MCG/SPRY 120 SPRAY/16 GM NASL SCH ×2 (09:46→22:25)
[2018-11-11] MEDS: FLUTICASONE/VILANTEROL 200-25 MCG/DOSE IH SCH (09:46)
[2018-11-11] MEDS: TIOTROPIUM BROMIDE DPI 5 CAP/KIT (18 MCG/CAP) IH SCH (09:47)
[2018-11-11] MEDS: ENOXAPARIN SODIUM INJ 40 MG/0.4 ML DISP.SYRIN SUBCUT SCH (09:48)
[2018-11-11] MEDS: ROFLUMILAST 500 MCG TABLET PO SCH (09:53)
[2018-11-11] MEDS: TRAMADOL HCL 50 MG TABLET PO PRN (10:12)
[2018-11-11] MEDS: IPRATROPIUM/ALBUTEROL 0.5-2.5 MG/3 ML AMPUL NEB SCH ×2 (14:40→19:50)
--- NOTE | 2018-11-11 14:49 | PDOC PROGRESS REPORT ---
Subjective Progress Note for:: 11/11/18 Subjective:: This is 57 years old female patient with paraplegia of unknown cause, hypertension, COPD, diabetes mellitus, depression and schizoaffective disorder brought from retirement with chief complaint of shortness of breath. This morning I seen patient resting in bed. She complains of shortness of breath still. She has been getting on oxygen via nasal cannula. Patient definitely needs BiPAP at night. Reason For Visit: PNEUMONIA, COPD EXACERBATION, HYPERTENSION Physical Exam Vital Signs: Temp Pulse Resp BP Pulse Ox 97.4 F 91 20 123/71 100 11/11/18 12:07 11/11/18 12:07 11/11/18 12:07 11/11/18 12:07 11/11/18 12:07 Pulse Oximeter Continuous Start: 11/07/18 18:42 Freq: RTQ4 Status: Active Protocol: Document 11/11/18 09:39 JDR (Rec: 11/11/18 09:40 JDR [id number]) Pulse Oximetry Assessment Oxygen Saturation (92-100) 99 Oxygen Flow Rate (L/min) 2 Oxygen Delivery Method Nasal Cannula Equipment Usage Equipment in Use Continuous SpO2 Machine # 11 Intake & Output 11/10/18 11/11/18 11/12/18 06:59 06:59 06:59 Intake Total 2980 1950 675 Balance 2980 1950 675 Weight 67 kg 70.6 kg General appearance: PRESENT: mild distress Head exam: PRESENT: atraumatic Mouth exam: PRESENT: moist Neck exam: ABSENT: carotid bruit, JVD, lymphadenopathy, thyromegaly Respiratory exam: PRESENT: wheezes Cardiovascular exam: PRESENT: RRR. ABSENT: diastolic murmur, rubs, systolic murmur GI/Abdominal exam: PRESENT: normal bowel sounds, soft. ABSENT: distended, guarding, mass, organolmegaly, rebound, tenderness Neurological exam: PRESENT: alert, awake, oriented to person, oriented to place, oriented to time, oriented to situation Results Laboratory Results: 11/10/18 03:54 11/10/18 03:54 11/10/18 16:04 Urine Color YELLOW Urine Appearance SLIGHTLY-CLOUDY Urine pH 7.0 Ur Specific [place] 1.009 Urine Protein NEGATIVE Urine Glucose (UA) NEGATIVE Urine Ketones NEGATIVE Urine Blood SMALL H Urine Nitrite NEGATIVE Ur Leukocyte Esterase LARGE H Urine WBC (Auto) 88 Urine RBC (Auto) 1 11/08/18 11:30 Sputum Gram Stain - Final 11/08/18 11:30 Sputum Sputum Culture - Final C.albicans/C.dubliniensis Reduced Normal Geraldine 11/07/18 17:20 Troponin I < 0.012 NT-Pro-B Natriuret Pep 42 Impressions: Chest X-Ray 11/09/18 00:00 IMPRESSION: Similar basilar interstitial -nodular markings. No consolidation or pleural effusion. Assessment and Plan - Diagnosis (1) Acute and chronic respiratory failure with hypoxia Is this a current diagnosis for this admission?: Yes Plan: Due to #2. Continue supplemental oxygen and intermittent BiPAP. (2) COPD exacerbation Is this a current diagnosis for this admission?: Yes Plan: Continue bronchodilators and supplemental oxygen (3) Pneumonia Is this a current diagnosis for this admission?: Yes Plan: Continue current antibiotics (4) Hypertension Qualifiers: Hypertension type: essential hypertension Qualified Code(s): I10 - Essential (primary) hypertension Is this a current diagnosis for this admission?: Yes Plan: Continue current regimen (5) Paraplegic Is this a current diagnosis for this admission?: Yes Plan: Etiology unknown. Patient has incontinence of bowel and bladder
[2018-11-11] MEDS: ONDANSETRON 4 MG TAB.RAPDIS PO PRN (16:16)
[2018-11-11] MEDS: 1/2 NORMAL SALINE 1,000 ML IV PRN (16:20)
[2018-11-11] MEDS: MONTELUKAST SODIUM 10 MG TABLET PO SCH (22:24)
[2018-11-11] MEDS: ATORVASTATIN CALCIUM 40 MG TABLET PO SCH (22:24)
[2018-11-11] MEDS: ZOLPIDEM TARTRATE 5 MG TABLET PO SCH (22:24)
[2018-11-11] MEDS: LEVOFLOXACIN 500 MG TABLET PO SCH (22:24)
[2018-11-12] MEDS: IPRATROPIUM/ALBUTEROL 0.5-2.5 MG/3 ML AMPUL NEB SCH ×3 (02:24→13:45)
[2018-11-12] MEDS: MELATONIN 5 MG TABLET PO SCH (03:19)
[2018-11-12] MEDS: GABAPENTIN 100 MG CAPSULE PO SCH ×2 (05:39→13:55)
[2018-11-12] MEDS: DICYCLOMINE HCL 10 MG CAPSULE PO SCH ×2 (05:39→13:55)
[2018-11-12] MEDS: PANTOPRAZOLE SODIUM 40 MG TABLET.DR PO SCH (05:39)
[2018-11-12] MEDS: SIMETHICONE 80 MG TAB.CHEW PO SCH ×2 (05:39→13:55)
[2018-11-12] MEDS: LEVOTHYROXINE SODIUM 0.025 MG TABLET PO SCH (05:39)
[2018-11-12] MEDS: QUETIAPINE FUMARATE 100 MG TABLET PO SCH ×2 (05:41→13:55)
[2018-11-12] MEDS: MULTIVITAMIN TABLET PO SCH (10:14)
[2018-11-12] MEDS: DOCUSATE SODIUM 100 MG CAPSULE PO SCH (10:14)
[2018-11-12] MEDS: FLUTICASONE/VILANTEROL 200-25 MCG/DOSE IH SCH (10:14)
[2018-11-12] MEDS: AMLODIPINE BESYLATE 2.5 MG TABLET PO SCH (10:15)
[2018-11-12] MEDS: ROFLUMILAST 500 MCG TABLET PO SCH (10:15)
[2018-11-12] MEDS: FLUTICASONE NASAL SPRAY 50 MCG/SPRY 120 SPRAY/16 GM NASL SCH (10:15)
[2018-11-12] MEDS: ENOXAPARIN SODIUM INJ 40 MG/0.4 ML DISP.SYRIN SUBCUT SCH (10:16)
[2018-11-12] MEDS: TIOTROPIUM BROMIDE DPI 5 CAP/KIT (18 MCG/CAP) IH SCH (10:16)
[2018-11-12] MEDS: GUAIFENESIN 600 MG TABLET.SA PO SCH (10:16)
[2018-11-12] MEDS: FLUOXETINE HCL 20 MG/5 ML UDCUP PO SCH (10:18)
[2018-11-12] MEDS: TRAMADOL HCL 50 MG TABLET PO PRN (10:23)
[2018-11-12] MEDS: LORAZEPAM 0.5 MG TABLET PO PRN (10:23)
[2018-11-12] MEDS: ACETAMINOPHEN 325 MG TABLET PO PRN (12:08)
--- NOTE | 2018-11-12 12:08 | PDOC TRANSFER SUMMARY ---
General - Admit/Disc Date/PCP Admission Date/Primary Care Provider: 11/07/18 18:53 SHARON SMITH MD Discharge Date: 11/12/18 - Discharge Diagnosis (1) Acute and chronic respiratory failure with hypoxia Is this a current diagnosis for this admission?: Yes (2) COPD exacerbation Is this a current diagnosis for this admission?: Yes (3) Pneumonia Is this a current diagnosis for this admission?: Yes (4) Hypertension Is this a current diagnosis for this admission?: Yes (5) Paraplegic Is this a current diagnosis for this admission?: Yes - Additional Information Resuscitation Status: Full Code Home Medications: Acetaminophen [Tylenol 325 mg Tablet] 650 mg PO QHS 11/07/18 Albuterol Sulfate [Ventolin Hfa 8 gm Mdi (1 Mdi/ER Disp)] 2 puff IH QIDP PRN 11/07/18 Amlodipine Besylate [Norvasc 2.5 mg Tablet] 2.5 mg PO DAILY 11/07/18 Atorvastatin Calcium [Lipitor 40 mg Tablet] 40 mg PO DAILY 11/07/18 Benzonatate [Tessalon Perles 100 mg Capsule] 100 mg PO Q8HP PRN 11/07/18 Bethanechol Chloride 10 mg PO QAM 11/07/18 Dicyclomine HCl [Bentyl 10 mg Capsule] 1 cap PO Q8 11/07/18 Docusate Sodium [Colace] 100 mg PO DAILY 11/07/18 Fesoterodine Fumarate [Toviaz] 4 mg PO DAILY 11/07/18 Fluticasone Propionate [Flonase Nasal Majestic 50 Mcg/Majestic 16 gm] 1 spray NASL DAILY 11/07/18 Fluticasone/Salmeterol [Advair 500-50 Diskus 14 Dose/Diskus] 1 inh IH Q12H 11/07/18 Gabapentin [Neurontin 100 mg Capsule] 100 mg PO TID 11/07/18 Ipratropium/Albuterol Sulfate [Duoneb 3 ml Ampul] 3 ml NEB RTTID 11/07/18 Levothyroxine Sodium [Synthroid 0.025 mg Tablet] 25 mcg PO Q6AM 11/07/18 Lorazepam [Ativan 0.5 mg Tablet] 0.5 mg PO Q6HP PRN 11/07/18 Melatonin 5 mg PO QHS 11/07/18 Montelukast Sodium [Singulair 10 mg Tablet] 10 mg PO DAILY 11/07/18 Multivitamin/Iron/Folic Acid [Centrum Complete Multivit Tab] 1 each PO DAILY 11/07/18 Omeprazole 40 mg PO DAILY 11/07/18 Ondansetron HCl [Zofran 4 mg Tablet] 1 tab PO Q6HP PRN 11/07/18 Quetiapine Fumarate [Seroquel 100 mg Tablet] 150 mg PO BID 11/07/18 Quetiapine Fumarate [Seroquel] 400 mg PO QHS 11/07/18 Roflumilast [Daliresp 500 mcg Tablet] 500 mcg PO DAILY 11/07/18 Simethicone [Gas Relief 80] 80 mg PO Q8 11/07/18 Tiotropium [place] [Spiriva Respimat] 4 gm IH DAILY 11/07/18 Tramadol HCl [Ultram] 50 mg PO BIDP PRN 11/07/18 Zolpidem Tartrate [Ambien 5 mg Tablet] 5 mg PO QHS 11/07/18 Fluoxetine HCl [Prozac] 10 mg PO DAILY 11/08/18 History of Present Illness Admission Date/PCP: 11/07/18 18:53 SHARON SMITH MD History of Present Illness: BRYON BONILLA is a 57 year old female has been in a long-term now for veral years has a complicated medical factor that she has paralysis from about the waist down ever been properly diagnosed. She states that she is incontinent of bowel and bladder she has bilateral foot drops, the patient states she is never had an MRI scan of her back. She does complain of scoliosis in her back. Hospital Course Hospital Course: This is 57 years old female patient with paraplegia of unknown cause, hypertension, COPD, diabetes mellitus, depression and schizoaffective disorder brought from long-term with chief complaint of shortness of breath. Patient has been managed accordingly with bronchodilators, supplemental oxygen, intermittent BiPAP, Levaquin and Solu-Medrol. This morning patient seen and examined at bedside. She is awake alert and oriented. Still patient has some shortness of breath but she declared that this is her baseline. Patient is stable enough to go home today. I will continue all her home medication. And I will send her also with prednisone 40 mg p.o. daily for 5 days. Patient also will benefit from intermittent BiPAP. Physical Exam Vital Signs: Temp Pulse Resp BP Pulse Ox 97.6 F 76 18 117/55 L 100 11/12/18 06:57 11/12/18 07:41 11/12/18 07:41 11/12/18 06:57 11/12/18 07:41 Pulse Oximeter Continuous Start: 11/07/18 18:42 Freq: RTQ4 Status: Active Protocol: Document 11/12/18 07:41 J (Rec: 11/12/18 07:57 J [id number]) Pulse Oximetry Assessment Oxygen Saturation (92-100) 100 Oxygen Delivery Method Bi-pap Fraction of Inspired Oxygen (FIO2) 25 Equipment Usage Equipment in Use Continuous SpO2 Machine # 11 Intake & Output 11/11/18 11/12/18 11/13/18 06:59 06:59 06:59 Intake Total 1950 2600 875 Balance 1949 2600 875 Weight 70.6 kg 71.5 kg General appearance: PRESENT: mild distress Head exam: PRESENT: atraumatic Eye exam: PRESENT: conjunctiva pink Mouth exam: PRESENT: dry mucosa Neck exam: ABSENT: carotid bruit, JVD, lymphadenopathy, thyromegaly Respiratory exam: PRESENT: clear to auscultation wilfredo. ABSENT: rales, rhonchi, wheezes GI/Abdominal exam: PRESENT: normal bowel sounds, soft. ABSENT: distended, guarding, mass, organolmegaly, rebound, tenderness Neurological exam: PRESENT: alert, awake, oriented to person, oriented to place, oriented to time, oriented to situation Results Laboratory Results: 11/10/18 03:54 11/10/18 03:54 11/08/18 11:30 Sputum Gram Stain - Final 11/08/18 11:30 Sputum Sputum Culture - Final C.albicans/C.dubliniensis Reduced Normal Geraldine 11/07/18 17:20 Troponin I < 0.012 NT-Pro-B Natriuret Pep 42 Impressions: Chest X-Ray 11/09/18 00:00 IMPRESSION: Similar basilar interstitial -nodular markings. No consolidation or pleural effusion. Qualifiers - * PATIENT BEING DISCHARGED WITH ANY OF THE FOLLOWING DIAGNOSIS: No Acute Heart Failure - Is this a Heart Failure Patient?: No LVEF < 40%?: No- if no continue to question #3 3. Anticoagulant therapy for permanect/persistent/paraoxysmal Afib or Aflutter: N/A
[2018-11-12 17:08] VITALS: BP 112/70
== END 2018-11-12 17:09 | DRG 190 ==
LOC: ER 14:18 → EH 18:53 → 3N 22:27
PROVIDERS: ADMIT Hospitalist; ATTEND Hospitalist
PROC: 5A09557 Assistance with Respiratory Ventilation, Greater than 96 Consecutive Hours, Continuous Positive Airway Pressure (ICD-10-PCS; principal; 2018-11-07)
DX: J44.1 Chronic obstructive pulmonary disease with (acute) exacerbation (principal); J96.21 Acute and chronic respiratory failure with hypoxia; J18.1 Lobar pneumonia, unspecified organism; J96.22 Acute and chronic respiratory failure with hypercapnia; G82.20 Paraplegia, unspecified; J44.0 Chronic obstructive pulmonary disease with (acute) lower respiratory infection; I10 Essential (primary) hypertension; M21.372 Foot drop, left foot; M21.371 Foot drop, right foot; F25.1 Schizoaffective disorder, depressive type; E11.9 Type 2 diabetes mellitus without complications; K21.9 Gastro-esophageal reflux disease without esophagitis; D63.8 Anemia in other chronic diseases classified elsewhere; L30.9 Dermatitis, unspecified; R29.818 Other symptoms and signs involving the nervous system; Z79.899 Other long term (current) drug therapy; Z79.890 Hormone replacement therapy; Z87.891 Personal history of nicotine dependence; Z79.1 Long term (current) use of non-steroidal anti-inflammatories (NSAID); Z88.6 Allergy status to analgesic agent; Z88.3 Allergy status to other anti-infective agents; Z88.8 Allergy status to other drugs, medicaments and biological substances; Z82.49 Family history of ischemic heart disease and other diseases of the circulatory system; Z83.6 Family history of other diseases of the respiratory system
CPT/HCPCS: 36415; 36600; 71045; 80048; 80053; 81001; 82803; 82962; 83036; 83880; 84484; 85025; 85610; 87040; 87070; 87205; 93005; 93010; 94640; 94660; 94762; 96365; 96367; 96375; 99291; J0692; J1650; J1956; J2270; J2405; J2930; J3475; J3490; J7060; J7620; S0119

== ENCOUNTER → 2019-02-04 | Outpatient (CLI) | payer MEDICAID ==
[~2019-02-04] MED LIST changes: -KETOROLAC TROMETHAMINE 0.45% 4 DROP/0.4 ML DROPERETTE OD PRN; +REGADENOSON INJ 0.4 MG/5 ML DISP.SYRIN IV ONE
--- NOTE | 2019-02-04 12:22 | XCELERA REPORT ---
[address] [address] Transthoracic Echocardiogram Report Name: BRYON BONILLA Age: 58 yrs Gender: Female : 1960 Patient Status: Outpatient Patient Location: RAD Study Date: 02/04/2019 11:44 AM Height: 64 in Weight: 151 lb BSA: 1.7 m2 Procedure: A two-dimensional transthoracic echocardiogram with color flow and Doppler was performed. The study was technically difficult with many images being suboptimal in quality. Reason For Study: SOB History: Shortness of breath. Ordering Physician: SARAH BETH MORALES Performed By: Jaz Elder Interpretation Summary The left ventricle is normal in size. There is normal left ventricular wall thickness. LV EF is 70% Left ventricular systolic function is normal. Doppler measurements suggest impaired left ventricular relaxation, which is associated with grade I/IV or mild diastolic dysfunction The left ventricular wall motion is normal. There is no thrombus. Cannot comment on ASD ,VSD , or PFO The right ventricle is normal in size and function. The right ventricle is not well visualized secondary to technical limitations The right atrium is normal. The left atrial size is normal. There is no evidence of mitral valve prolapse. There is no mitral valve stenosis. There is no vegetation seen on the mitral valve. There is a trace amount of mitral regurgitation There is no aortic valvular vegetation. There is no aortic valve stenosis There is no LVOT obstruction. No aortic regurgitation is present. There is no tricuspid stenosis. There is a trace amount of tricuspid regurgitation There is mild pulmonary hypertension by echo RVSP is 33 to 38 mm of HG , with RA mean of 5 to 10. The pulmonic valve is not well visualized. The aortic root is normal size. The inferior vena cava appeared normal and decreased > 50% with respiration (RAP 5-10 mmHg) There is no pericardial effusion. MMode/2D Measurements & Calculations RVDd: 2.6 cm LVIDd: 4.1 cm FS: 37.3 % Ao root diam: 2.1 cm IVSd: 0.92 cm LVIDs: 2.6 cm EDV(Teich): 76.0 ml Ao root area: 3.5 cm2 LVPWd: 1.0 cm ESV(Teich): 24.5 ml EF(Teich): 67.7 % Doppler Measurements & Calculations MV E max zach: MV dec slope: Ao V2 max: LV V1 max P.0 cm/sec 552.2 cm/sec2 145.0 cm/sec 4.4 mmHg MV A max zach: MV dec time: 0.16 secAo max PG: LV V1 max: 113.9 cm/sec 8.4 mmHg 104.8 cm/sec MV E/A: 0.78 TR max zach: 255.9 cm/sec TR max P.3 mmHg Left Ventricle The left ventricle is normal in size. There is normal left ventricular wall thickness. LV EF is 70%. Left ventricular systolic function is normal. Doppler measurements suggest impaired left ventricular relaxation, which is associated with grade I/IV or mild diastolic dysfunction. The left ventricular wall motion is normal. There is no thrombus. Cannot comment on ASD ,VSD , or PFO. Right Ventricle The right ventricle is normal in size and function. The right ventricle is not well visualized secondary to technical limitations. Atria The right atrium is normal. The left atrial size is normal. Mitral Valve There is no evidence of mitral valve prolapse. There is no vegetation seen on the mitral valve. There is no mitral valve stenosis. There is a trace amount of mitral regurgitation. Aortic Valve There is no aortic valvular vegetation. There is no aortic valve stenosis. There is no LVOT obstruction. No aortic regurgitation is present. Tricuspid Valve There is no tricuspid stenosis. There is a trace amount of tricuspid regurgitation. There is mild pulmonary hypertension by echo. RVSP is 33 to 38 mm of HG , with RA mean of 5 to 10. Pulmonic Valve The pulmonic valve is not well visualized. Great Vessels The aortic root is normal size. The inferior vena cava appeared normal and decreased > 50% with respiration (RAP 5-10 mmHg). Effusions There is no pericardial effusion. : SARAH BETH MORALES Lakshmi
== END ==
LOC: RAD 08:42
PROVIDERS: ATTEND Specialist
DX: R07.9 Chest pain, unspecified (principal); R06.02 Shortness of breath
CPT/HCPCS: 93306; 93017; 78452; A9500; J2785; Q9969

== ENCOUNTER 2019-05-06 08:14 | Outpatient (CLI) | payer MEDICAID ==
[~2019-05-06 08:14] MED LIST changes: +ACETAMINOPHEN 325 MG TABLET PO PRN; +DEXTROSE 5%-WATER 250 ML IV PRN; +DIPHENHYDRAMINE HCL 50 MG/ML VIAL IV PRN; +IMMUNE GLOB,GAM CAPRYLATE(IGG) 20 GM, IMMUNE GLOB,GAM CAPRYLATE(IGG) 10 GM in CONTAINER... IV PRN; -REGADENOSON INJ 0.4 MG/5 ML DISP.SYRIN IV ONE
[2019-05-06 08:35] VITALS: BP 118/66
== END 2019-05-06 12:00 ==
LOC: II 08:14 → 5TH 08:40 → II 12:00
PROVIDERS: ATTEND Internal Medicine Hematology & Oncology
DX: D80.1 Nonfamilial hypogammaglobulinemia (principal)
CPT/HCPCS: 96365; 96366; J1561 ×2; J3490 ×2; J1200; 96375

== ENCOUNTER 2020-02-02 09:42 | Outpatient (CLI) | payer MEDICAID ==
[~2020-02-02 09:42] MED LIST changes: -ACETAMINOPHEN 325 MG TABLET PO PRN; -DEXTROSE 5%-WATER 250 ML IV PRN; -DIPHENHYDRAMINE HCL 50 MG/ML VIAL IV PRN; +FERRIC CARBOXYMALTOSE 750 MG in NORMAL SALINE 250 ML IV PRN; -IMMUNE GLOB,GAM CAPRYLATE(IGG) 20 GM, IMMUNE GLOB,GAM CAPRYLATE(IGG) 10 GM in CONTAINER... IV PRN; +NORMAL SALINE 250 ML IV PRN
[2020-02-02 09:55] VITALS: BP 127/78
== END 2020-02-02 11:25 | disposition home or self-care (01) ==
LOC: II 09:42 → 5TH 09:44 → II 11:25
PROVIDERS: ATTEND Internal Medicine Hematology & Oncology
DX: D50.9 Iron deficiency anemia, unspecified (principal); K90.9 Intestinal malabsorption, unspecified
CPT/HCPCS: 96365; J7050; J1439

== ENCOUNTER 2020-02-08 20:24 | Emergency (ER) | payer MEDICAID ==
--- NOTE | 2020-02-08 20:59 | ER Document Report ---
ED General - General Chief Complaint: Chest Pain Stated Complaint: CHEST PAIN Time Seen by Provider: 02/08/20 20:29 Primary Care Provider: TERESE LEPE MD [Primary Care Provider] - Follow up as needed TRAVEL OUTSIDE OF THE [place] IN LAST 30 DAYS: No - Related Data Allergies/Adverse Reactions: clarithromycin [From Biaxin] Allergy (Severe, Verified 12/26/17 19:20) TONGUE/THROAT SWELLING furosemide [From Lasix] Allergy (Intermediate, Verified 12/26/17 19:20) UNSURE venlafaxine HCl [From Effexor] Allergy (Intermediate, Verified 12/26/17 19:20) MUSCLE WEAKNESS adhesive tape Allergy (Verified 12/26/17 19:20) RASH divalproex sodium [From Depakote] Allergy (Verified 12/26/17 19:20) UNSURE Past Medical History - Social History Smoking Status: Never Smoker Chew tobacco use (# tins/day): No Frequency of alcohol use: None Drug Abuse: None Family History: CAD, COPD, Hypertension, Malignancy Patient has homicidal ideation: No - Past Medical History Cardiac Medical History: Reports: Hx Hypertension Denies: Hx Coronary Artery Disease, Hx Heart Attack Pulmonary Medical History: Reports: Hx Asthma, Hx Bronchitis, Hx COPD, Hx Pneumonia Denies: Hx Tuberculosis Neurological Medical History: Reports: Hx Seizures. Denies: Hx Cerebrovascular Accident Endocrine Medical History: Reports: Hx Diabetes Mellitus Type 2 Renal/ Medical History: Denies: Hx Peritoneal Dialysis GI Medical History: Reports: Hx Gastroesophageal Reflux Disease, Hx Hiatal Hernia, Hx Ulcer - UMBILICAL. Denies: Hx Hepatitis Musculoskeletal Medical History: Reports Hx Arthritis Psychiatric Medical History: Reports: Hx Depression, Hx Schizoaffective Disorder, Hx Schizophrenia Infectious Medical History: Denies: Hx Hepatitis Past Surgical History: Reports: Hx Abdominal Surgery, Hx Appendectomy, Hx Section, Hx Cholecystectomy, Hx Hysterectomy, Other - Nate fundoplication, ventral herniorraphy 15 yrs ago. Denies: Hx Mastectomy, Hx Open Heart Surgery, Hx Pacemaker - Immunizations Hx Diphtheria, Pertussis, Tetanus Vaccination: No Hx Pneumococcal Vaccination: 01/30/13 Discharge - Discharge Referrals: TERESE LEPE MD [Primary Care Provider] - Follow up as needed
--- NOTE | 2020-02-08 21:05 | ER Document Report ---
ED General - General Chief Complaint: Chest Pain Stated Complaint: CHEST PAIN Time Seen by Provider: 02/08/20 20:29 Primary Care Provider: JOSUE BRENNAN MD [ACTIVE STAFF] - Follow up in 3-5 days CLAUDIO MORALES MD [ACTIVE STAFF] - Follow up in 1 week TRAVEL OUTSIDE OF THE [place] IN LAST 30 DAYS: No - HPI Notes: 59-year-old female with past medical history for atrial fibrillation, COPD on 2 L of oxygen, hypogammaglobulinemia, hypertension, diabetes, hyperlipidemia to the emergency department from [facility] with complaints of chest pain that started approximately 4 PM this evening. She states the pain is. She states that it feels "fluffy". It runs from the right arm over her head and down into her left chest. It also radiates through to the back. She admits to slightly increased shortness of breath but she is a COPD patient on 2 L of oxygen continuously and she always feels short of breath. She denies any nausea or vomiting with it. She denies any diaphoresis. She states she had a stress test about [address] French. She believes it was negative. She states that she currently takes Eliquis to protect her from stroke and her atrial fibrillation. She did take her Eliquis this morning but has not taken her nighttime dose. She denies any leg swelling or recent travel. She denies any fevers or chills. She denies being in contact with any sick people. - Related Data Allergies/Adverse Reactions: clarithromycin [From Biaxin] Allergy (Severe, Verified 12/26/17 19:20) TONGUE/THROAT SWELLING furosemide [From Lasix] Allergy (Intermediate, Verified 12/26/17 19:20) UNSURE venlafaxine HCl [From Effexor] Allergy (Intermediate, Verified 12/26/17 19:20) MUSCLE WEAKNESS adhesive tape Allergy (Verified 12/26/17 19:20) RASH divalproex sodium [From Depakote] Allergy (Verified 12/26/17 19:20) UNSURE Past Medical History - General Information source: Patient - Social History Smoking Status: Never Smoker Chew tobacco use (# tins/day): No Frequency of alcohol use: None Drug Abuse: None Family History: CAD, COPD, Hypertension, Malignancy Patient has homicidal ideation: No - Past Medical History Cardiac Medical History: Reports: Hx Hypertension Denies: Hx Coronary Artery Disease, Hx Heart Attack Pulmonary Medical History: Reports: Hx Asthma, Hx Bronchitis, Hx COPD, Hx Pneumonia Denies: Hx Tuberculosis Neurological Medical History: Reports: Hx Seizures. Denies: Hx Cerebrovascular Accident Endocrine Medical History: Reports: Hx Diabetes Mellitus Type 2 Renal/ Medical History: Denies: Hx Peritoneal Dialysis GI Medical History: Reports: Hx Gastroesophageal Reflux Disease, Hx Hiatal Hernia, Hx Ulcer - UMBILICAL. Denies: Hx Hepatitis Musculoskeletal Medical History: Reports Hx Arthritis Psychiatric Medical History: Reports: Hx Depression, Hx Schizoaffective Disorder, Hx Schizophrenia Infectious Medical History: Denies: Hx Hepatitis Past Surgical History: Reports: Hx Abdominal Surgery, Hx Appendectomy, Hx Section, Hx Cholecystectomy, Hx Hysterectomy, Other - Nate fundoplication, ventral herniorraphy 15 yrs ago. Denies: Hx Mastectomy, Hx Open Heart Surgery, Hx Pacemaker - Immunizations Hx Diphtheria, Pertussis, Tetanus Vaccination: No Hx Pneumococcal Vaccination: 01/30/13 Review of Systems - Review of Systems Constitutional: denies: Chills, Fever EENT: No symptoms reported Cardiovascular: Chest pain. denies: Palpitations, Heart racing, Orthopnea, Dyspnea, Syncope, Dizziness, Lightheaded Respiratory: See HPI, Short of breath. denies: Cough Gastrointestinal: denies: Abdominal pain, Diarrhea, Nausea, Vomiting Female Genitourinary: No symptoms reported Musculoskeletal: See HPI, Back pain Skin: No symptoms reported Neurological/Psychological: No symptoms reported -: Yes All other systems reviewed and negative Physical Exam - Vital signs Vitals: Resp Pulse Ox 16 100 02/08/20 20:35 02/08/20 20:35 - General General appearance: Alert Notes: Chronically ill-appearing woman. Appears older than stated age. - HEENT Head: Normocephalic, Atraumatic Eyes: Normal Pupils: PERRL Nasal: Normal Mouth/Lips: Normal Pharynx: Normal. No: Uvular edema, Potential airway comprom. Neck: Normal, Supple - Respiratory Respiratory status: No respiratory distress Chest status: Nontender. No: Tender, Accessory muscle use Breath sounds: Normal. No: Rales, Rhonchi, Wheezing Chest palpation: Normal - Cardiovascular Rhythm: Tachycardia Heart sounds: Normal auscultation Murmur: No Notes: No leg edema - Abdominal Inspection: Normal Distension: No distension Bowel sounds: Normal Tenderness: Nontender. No: Tender, McBurney's point, Colon's sign, Guarding Organomegaly: No organomegaly Notes: healed scar to the anterior abdomen. 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 lobo. we reviewed EKG together -- patient in Atrial fibrillation, but HR is 99-102. We will hold on rate control, but will give her Eliquis. We will trend troponins, obtain UA 02/09/20 02:53 Impression: chest pain -no longer having any chest pain. She has 2 trending negative troponins. She is in atrial fibrillation with a rate in the middle 90s to low 100s. She is on Eliquis. Noted urinalysis with UTI. Will treat here. We will have her follow-up with her primary care physician and her PCP. Low Wells score for PE. Low suspicion for AD. Heart score is 3. 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 French encouraged to return if worse. Discussed patient's discharge plan with Dr. Lobo and he agrees. - Vital Signs Vital signs: Temp Pulse Resp BP Pulse Ox 98.7 F 24 H 120/72 99 02/09/20 01:56 02/09/20 01:01 02/09/20 01:00 02/09/20 01:01 Temp Pulse Resp BP Pulse Ox 98.7 F 24 H 120/72 99 02/09/20 01:56 02/09/20 01:01 02/09/20 01:00 02/09/20 01:01 Intake & Output 02/07/20 02/08/20 02/09/20 06:59 06:59 06:59 Weight 88.904 kg Weight/Height Weight 88.904 kg Height 5 ft 4 in HR is 94 - Laboratory Result Diagrams: 02/08/20 20:41 02/08/20 20:41 Laboratory results interpreted by me: 02/08/20 02/08/20 02/08/20 20:41 20:41 23:15 WBC 13.1 H RBC 3.35 L Hgb 10.1 L Hct 30.6 L RDW 14.4 H Lymph % (Auto) 6.2 L Absolute Neuts (auto) 10.7 H Seg Neutrophils % 81.7 H Sodium 136.9 L Chloride 92 L Carbon Dioxide 39 H Glucose 125 H Total Protein 6.2 L Urine Blood SMALL H Urine Nitrite (Reflex) POSITIVE H Leukocyte Esterase Rfl LARGE H - Diagnostic Test Radiology reviewed: Image reviewed, Reports reviewed - EKG Interpretation by Me Additional EKG results interpreted by me: 02/09/20 rate: 105 Rhythm: Atrial fibrillation Interpretation: No STEMI, atrial fibrillation, no ST changes no significant change from prior. Discharge - Discharge Clinical Impression: UTI (urinary tract infection) Qualifiers: Urinary tract infection type: acute cystitis Hematuria presence: without hematuria Qualified Code(s): N30.00 - Acute cystitis without hematuria Chest pain Qualifiers: Chest pain type: unspecified Qualified Code(s): R07.9 - Chest pain, unspecified COPD (chronic obstructive pulmonary disease) Qualifiers: COPD type: unspecified COPD Qualified Code(s): J44.9 - Chronic obstructive pulmonary disease, unspecified Atrial fibrillation Qualifiers: Atrial fibrillation type: unspecified Qualified Code(s): I48.91 - Unspecified atrial fibrillation Condition: Stable Disposition: HOME, SELF-CARE Instructions: Chest Pain of Unclear Cause ([facility]), Urinary Tract Infection ([facility]) Additional Instructions: Continue your At Home medicines at [facility]. Complete antibiotics. Return if wo rsening symptoms. Follow-up with Dr. French and Dr. Styles. Prescriptions: Cephalexin Monohydrate [Keflex 500 mg Capsule] 500 mg PO BID 7 Days #14 capsule Referrals: JOSUE BRENNAN MD [ACTIVE STAFF] - Follow up in 3-5 days CLAUDIO MORALES MD [ACTIVE STAFF] - Follow up in 1 week
--- NOTE | 2020-02-08 21:58 | RADIOLOGY REPORT (SQ) ---
EXAM DESCRIPTION: XR CHEST 1 VIEW COMPLETED DATE/TME: 02/08/2020 21:17 CLINICAL HISTORY: 59 years, Female, chest pain COMPARISON: Chest x-ray 11/09/2018. TECHNIQUE: Upright portable chest x-ray FINDINGS: Cardiomediastinal silhouette is not enlarged. Moderate hyperinflation. Suspected advanced emphysematous changes in both upper lung corrales. Minimal chronic scarring in the lung bases. IMPRESSION: Suspected advanced COPD/emphysema. No obvious acute findings.
[2020-02-08] MEDS ORDERED: APIXABAN 5 MG TABLET PO ONE (22:02)
[2020-02-08 22:52] LABS: ABSOLUTE BASOPHILS # (AUTO) 0.1 10^3/uL (0.0-0.2); ABSOLUTE EOSINOPHILS # (AUTO) 0.3 10^3/uL (0.0-0.6); ABSOLUTE LYMPHOCYTES (AUTO) 0.8 10^3/uL (0.5-4.7); ABSOLUTE MONOCYTES (AUTO) 1.2 10^3/uL (0.1-1.4); ABSOLUTE NEUT (AUTO) 10.7 10^3/uL (1.7-8.2); BASOPHILS % (AUTO) 0.6 % (0-2); EOSINOPHILS % (AUTO) 2.4 % (0-6); HEMATOCRIT 30.6 % (36.0-47.0); HEMOGLOBIN 10.1 g/dL (12.0-15.5); LYMPHOCYTES % (AUTO) 6.2 % (13-45); MEAN CORPUSCULAR HGB CONC 32.9 g/dL (32.0-36.0); MEAN CORPUSCULAR VOLUME 91 fl (80-97); MONOCYTES % (AUTO) 9.1 % (3-13); PLATELET COUNT 293 10^3/uL (150-450); RED BLOOD COUNT 3.35 10^6/uL (3.72-5.28); RED CELL DISTRIBUTION WIDTH 14.4 % (11.5-14.0); SEGMENTED NEUTROPHILS % (AUTO) 81.7 % (42-78); TOTAL CELLS COUNTED % (AUTO) 100 %; WHITE BLOOD COUNT 13.1 10^3/uL (4.0-10.5)
[2020-02-08 22:56] LABS: ALBUMIN 3.9 g/dL (3.5-5.0); ALKALINE PHOSPHATASE 107 U/L (38-126); ANION GAP 6 (5-19); ASPARTATE AMINO TRANSFERASE 23 U/L (14-36); BILIRUBIN,DIRECT 0.2 mg/dL (0.0-0.4); BILIRUBIN,TOTAL 0.3 mg/dL (0.2-1.3); BLOOD UREA NITROGEN 8 mg/dL (7-20); CALCIUM 9.1 mg/dL (8.4-10.2); CARBON DIOXIDE 39 mmol/L (22-30); CHLORIDE 92 mmol/L (98-107); GLUCOSE 125 mg/dL (75-110); POTASSIUM 3.6 mmol/L (3.6-5.0); TOTAL PROTEIN 6.2 g/dL (6.3-8.2)
[2020-02-08 23:00] LABS: INTERNATIONAL RATION (INR) 1.02; PROTHROMBIN TIME 13.6 SEC (11.4-15.4)
--- NOTE | 2020-02-08 23:02 | EKG REPORT ---
SEVERITY:- ABNORMAL ECG - A-FLUTTER/FIBRILLATION W/ COMPLETE AV BLOCK VS SINUS WITH ARTIFACTS, REC REPEAT EKG : Confirmed by: Kobe Pizarro 08-Feb-2020 23:01:59
[2020-02-08] MEDS ORDERED: ACETAMINOPHEN 325 MG TABLET PO ONE (23:26)
[2020-02-08 23:39] LABS: APPEARANCE,URINE SLIGHTLY-CLOUDY; BILIRUBIN,URINE NEGATIVE (NEGATIVE); COLOR,URINE YELLOW; GLUCOSE, URINE NEGATIVE (NEGATIVE); KETONES,URINE NEGATIVE (NEGATIVE); PROTEIN,URINE NEGATIVE (NEGATIVE); URINE SPECIFIC GRAVITY 1.005; UROBILINOGEN,URINE NEGATIVE mg/dL (<2.0)
[2020-02-09] MEDS ORDERED: CEFTRIAXONE 1 GM/D5W RTU 1 GM/50 ML RTUPB IV ONE (01:31)
[2020-02-09] MEDS ORDERED: ONDANSETRON HCL INJ/PF 4 MG/2 ML SDV IV ONE (01:31)
[2020-02-09 03:59] VITALS: BP 123/85
[2020-02-09] MEDS ORDERED: APIXABAN 5 MG TABLET PO ONE (23:45)
== END 2020-02-09 04:00 | disposition home or self-care (01) ==
LOC: ER 20:24
DX: R07.9 Chest pain, unspecified (principal); N30.00 Acute cystitis without hematuria; J44.9 Chronic obstructive pulmonary disease, unspecified; Z99.81 Dependence on supplemental oxygen; M54.9 Dorsalgia, unspecified; I48.91 Unspecified atrial fibrillation; I10 Essential (primary) hypertension; E11.9 Type 2 diabetes mellitus without complications; M79.601 Pain in right arm; R00.0 Tachycardia, unspecified; Z79.01 Long term (current) use of anticoagulants; Z87.01 Personal history of pneumonia (recurrent); Z88.1 Allergy status to other antibiotic agents; Z88.8 Allergy status to other drugs, medicaments and biological substances; Z91.048 Other nonmedicinal substance allergy status
CPT/HCPCS: 93005; 99285; 96375; 96365; 36415; 87086; 83735; 85025; 85610; 85730; 87088; 80053; 81001; 84484; 87186; 71045; 93010; J3490; J2405; J0696

== ENCOUNTER 2020-02-12 10:11 | Outpatient (CLI) | payer MEDICAID ==
[2020-02-12 10:23] VITALS: BP 116/74
== END 2020-02-12 11:00 | disposition home or self-care (01) ==
LOC: II 10:11 → 5TH 10:11 → II 11:00
PROVIDERS: ATTEND Internal Medicine Hematology & Oncology
DX: D50.9 Iron deficiency anemia, unspecified (principal); K90.9 Intestinal malabsorption, unspecified
CPT/HCPCS: 96365; J7050; J1439